=== PATIENT | male | born 1960 | race Caucasian/White ===

== ENCOUNTER → 2016-10-08 | Outpatient (CLI) | payer BC ==
[~2016-10-08] VITALS: Ht 177.8 cm; Wt 110.3 kg
[~2016-10-08] MED LIST: ADAL40KI IM; ERGO1CAP35 PO; EZET10TA63 PO; FLV1 PO; INSDGI SC; LSN5 PO; METH1INJ89 SC; MULT-845 PO; NVLGI SC; PRED20TA2 PO; SIMV40TA4 PO; TRAM-453 PO; ZOLP1TAB PO; [UNRECOGNIZED DRUG - CODE] PO
[2016-10-08 15:17] VITALS: BP 112/70; PULSE 89; Ht 177.8 cm; Wt 110.3 kg
== END | disposition home or self-care (01) ==
LOC: C.NEUR 14:55
PROVIDERS: ATTEND Internal Medicine Pulmonary Disease
DX: G47.30 Sleep apnea, unspecified (principal)

== ENCOUNTER → 2017-01-01 | Outpatient (CLI) | payer BC ==
[~2017-01-01] MED LIST changes: +ERGO500011 PO; +INSU1.2I SC; +METHOTREXATE IM; +NVLGI/PEN SC; +PRED-301 PO; +VEDO1INJ IV
--- NOTE | 2017-01-01 12:41 | DIAGNOSTIC IMAGING REPORT ---
LEFT KNEE 3 VIEWS HISTORY: LEFT KNEE PAIN COMPARISON: None. FINDINGS: There is no fracture or dislocation. Prepatellar soft tissue swelling. Probable small knee effusion. No radiopaque foreign bodies. IMPRESSION: No fractures. Prepatellar soft tissue swelling and a small knee effusion. Electronically signed by: Luis Alfredo Lopez M.D. 01/01/2017 12:39 PM Dictated Date/Time: 01/01/2017 12:38 PM
[2017-01-01 13:48] LABS: BLOOD UREA NITROGEN 10 mg/dl (7-18); BUN/CREATININE RATIO 14.3 (10-20); CALCIUM 9.5 mg/dl (8.5-10.1); CARBON DIOXIDE 25 mmol/L (21-32); CHLORIDE 101 mmol/L (98-107); CREATININE 0.68 mg/dl (0.60-1.40); GLUCOSE 341 mg/dl (70-99); POTASSIUM 4.5 mmol/L (3.5-5.1); SODIUM 134 mmol/L (136-145)
[2017-01-01 13:57] LABS: ESTIMATED AVERAGE GLUCOSE 212 mg/dl; HA1C FLAG Normal (Normal)
[2017-01-01 14:54] LABS: BETA-HYDROXYBUTYRATE 3.41 mg/dL (0.2-2.81)
== END | disposition home or self-care (01) ==
LOC: C.RADBC 11:49
PROVIDERS: ATTEND Nurse Practitioner Family
DX: M25.562 Pain in left knee (principal); E10.9 Type 1 diabetes mellitus without complications; R79.9 Abnormal finding of blood chemistry, unspecified

== ENCOUNTER → 2017-01-22 | Outpatient (CLI) | payer BC ==
[~2017-01-22] MED LIST changes: +CEPH500C2 PO; +HYDR-5688 PO
== END | disposition home or self-care (01) ==
LOC: C.LABSPEC 10:58
PROVIDERS: ATTEND Nurse Practitioner Adult Health
DX: L72.0 Epidermal cyst (principal)

== ENCOUNTER → 2017-02-14 | Outpatient (CLI) | payer BC | END | disposition home or self-care (01) | LOC: C.LABSPEC 16:46 | PROVIDERS: ATTEND Surgery | DX: L72.0 Epidermal cyst (principal) ==

== ENCOUNTER → 2017-05-24 | Outpatient (CLI) | payer BC ==
[~2017-05-24] MED LIST changes: -CEPH500C2 PO; -ERGO500011 PO; -HYDR-5688 PO; -INSU1.2I SC; -METHOTREXATE IM; -NVLGI/PEN SC; -PRED-301 PO; -VEDO1INJ IV
--- NOTE | 2017-05-24 09:26 | DIAGNOSTIC IMAGING REPORT ---
CHEST 2 VIEWS ROUTINE CLINICAL HISTORY: R05 Cough COMPARISON STUDY: 11/09/2015 FINDINGS: The heart remains mildly enlarged. There is soft tissue prominence in the region of the AP window. This remains unchanged. This may represent a prominent pulmonary artery. There is no failure. There is no focal pulmonary consolidation. There are no pleural effusions. IMPRESSION: 1. Prominent soft tissue prominence at the level of the main pulmonary segment/AP window. This remains unchanged on studies dating back to 2008 2. No acute findings. No evidence of acute parenchymal consolidation Electronically signed by: Dave Hoover M.D. 05/24/2017 9:25 AM Dictated Date/Time: 05/24/2017 9:21 AM
== END | disposition home or self-care (01) ==
LOC: C.RAD1850 08:38
PROVIDERS: ATTEND Nurse Practitioner Family
DX: R05 Cough (principal); M79.89 Other specified soft tissue disorders

== ENCOUNTER → 2017-07-11 | Outpatient (CLI) | payer BC ==
[~2017-07-11] MED LIST changes: -ADAL40KI IM; -ERGO1CAP35 PO; +ERGO500011 PO; +INSU1.2I SC; -METH1INJ89 SC; +METHOTREXATE IM; -NVLGI SC; +NVLGI/PEN SC; +PRED-301 PO; -PRED20TA2 PO; +VEDO1INJ IV
== END | disposition home or self-care (01) ==
LOC: C.CPL 17:11
PROVIDERS: ATTEND Surgery
DX: Z01.810 Encounter for preprocedural cardiovascular examination (principal); L72.0 Epidermal cyst

== ENCOUNTER → 2017-08-02 | Day surgery (SDC) | payer BC ==
[2017-07-09 15:07] VITALS: Ht 177.8 cm; Wt 109.5 kg
[~2017-08-02] VITALS: Ht 177.8 cm; Wt 109.5 kg
[~2017-08-02] MED LIST changes: +ATROPINE SULFATE 0.1 MG/ML 5ML SYR IV PRN; +CEFAZOLIN 2000MG IV PUSH 10 ML IV SCH; +CEPH500C2 PO; +EpHEDrine SULFATE INJ 50 MG/ML AMP IV PRN; +FENTANYL CITRATE INJ 50 MCG/1 ML 2 ML VIAL IV PRN; +FENTANYL CITRATE INJ 50 MCG/1 ML 2 ML VIAL ONE; +FLUMAZENIL 0.1 MG/1 ML 10 ML VIAL IV PRN; +HYDR-5688 PO; +HYDROCODONE/ACETAMOPHEN 5/325MG TAB PO PRN; +HYDROmorphone INJ 0.5 MG/0.5 ML SYR IV PRN; +LABETALOL HCL IV 5 MG/ML 20ML IV PRN; +LACTATED RINGER'S 1000ML 1,000 ML IV SCH; +LIDOCAINE HCL 1% 20 ML VIAL ONE; +LIDOCAINE HCL 2% 2 ML VIAL (20MG/ML) ONE; +MEPERIDINE HCL 25 MG/ML CARP IV PRN; +MIDAZOLAM HCL 1 MG/ML 2ML VIAL ONE; +NALOXONE HCL 0.4 MG/1 ML VIAL/CARP IV PRN; +ONDANSETRON INJ 2 MG/ML 2 ML VIAL IV PRN; +ONDANSETRON INJ 2 MG/ML 2 ML VIAL ONE; +PHENYLEPHRINE 100MCG/ML 5ML SYR IV PRN; +PROPOFOL IV EMULSION 10 MG/ML 20 ML VIAL IV ONE; +SODIUM CHLORIDE 0.9% 1000ML 1,000 ML IV SCH
--- NOTE | 2017-08-02 06:41 | History & Physical Bridge - SC ---
H&P Re-Evaluation Bridge Note: I have examined the patient, reviewed the History & Physical and in the interval since the performance of the History & Physical I have noted the following changes of clinical significance: No changes noted
--- NOTE | 2017-08-02 07:29 | [facility] Operative Report ---
Operative Report Operative Date Aug 02, 2017. Pre-Operative Diagnosis Epidermal Cyst, Right Upper Back Post-Operative Diagnosis Same Procedure(s) Performed Excision Of Epidermoid Cyst, Right Upper Back Surgeon Dr. Alejandro Instructional Manager Surgeon(s) Domi Geiger PA-C Estimated Blood Loss 5ML Findings scar tissue Specimens A. Upper Back Right Epidermail Cyst Anesthesia local/ sedation Complication(s) None Disposition Recovery Room / PACU I attest to the content of the Intraoperative Record and any orders documented therein. Any exceptions are noted below.
[2017-08-02 07:32] VITALS: TEMP 37.3
--- NOTE | 2017-08-02 07:33 | Discharge Instructions-SurgCtr ---
Discharge Instructions Date of Service Aug 02, 2017. Visit Reason for Visit: Epidermoid Cyst, Right Upper Back Discharge Discharge Diagnosis / Problem: epidermoid cyst Discharge Goals Goal(s): Decrease discomfort, Improve function, Improve disease control Medications Stopped Medications Name(s): Took half dose of long lasting insulin. Activity Recommendations Activity Limitations: as noted below Lifting Limitations: gradually increase as tolerated Exercise/Sports Limitations: until after follow-up appointment May Resume Sexual Activity: when tolerated Shower/Bathe: tomorrow Driving or Machine Use: resume 1 day after discharge Anesthesia . Post Anesthesia Instructions: If you have had General Anesthesia or IV Sedation: * Do not drive today. * Resume driving when surgeon permits. * Do not make important decisions or sign legal documents today. * Call surgeon for: 1. Temperature elevations greater than 101 degrees F. 2. Uncontrollable pain. 3. Excessive bleeding. 4. Persistent nausea and vomiting. 5. Medication intolerance (nausea, vomiting or rash). * For nausea and vomiting use only clear liquids such as: tea, soda, bouillon until nausea subsides, then gradually increase diet as tolerated. * If you have any concerns or questions, call your surgeon's office. If physician is unavailable and it is an emergency, call 911 or go to the nearest emergency room. . Instructions / Follow-Up Instructions / Follow-Up SPECIAL CARE INSTRUCTIONS: * Cover incisions and change daily for comfort/drainage. * May use ibuprofen for pain as tolerated. * Expect some swelling and bruising. Call your doctor if: * Temperature above 101 degrees * Pain not relieved by pain medicine ordered * There is increased drainage or redness from any incision * You have any unanswered questions or concerns [phone]. FOLLOW UP VISIT: If not already scheduled, please call the office for a follow-up visit. for next week- some suture removal OFFICE PHONE NUMBER: Dr. Alejandro Office Diet Recommendations Home Diet: resume previous diet Procedures Procedures Performed: Excision Of Epidermoid Cyst, Right Upper Back Pending Studies Studies pending at discharge: no Medical Emergencies . Who to Call and When: Medical Emergencies: If at any time you feel your situation is an emergency, please call 911 immediately. . Non-Emergent Contact Non-Emergency issues call your: Primary Care Provider, Surgeon . . "Provider Documentation" section prepared by Rivera Alejandro. .
--- NOTE | 2017-08-02 07:41 | Anesthesia Progress Nt - [facility] ---
Anesthesia Post Op Note Date & Time Aug 02, 2017 at 07:40 Vital Signs Pain Intensity: 0 Vital Signs Past 12 Hours Date Time Temp Pulse Resp B/P (MAP) Pulse Ox O2 Delivery O2 Flow Rate FiO2 08/02/17 06:34 36.7 75 20 117/90 (99) 95 Room Air Notes Mental Status: alert / awake / arousable, participated in evaluation Pt Amnestic to Procedure: Yes Nausea / Vomiting: adequately controlled Pain: adequately controlled Airway Patency, RR, SpO2: stable & adequate BP & HR: stable & adequate Hydration State: stable & adequate Anesthetic Complications: no major complications apparent
--- NOTE | 2017-08-02 07:42 | OPERATIVE REPORT ---
DATE OF OPERATION: 08/02/2017 NAME OF OPERATION: Excision of upper back epidermoid cyst. STAFF SURGEON: Rivera Alejandro MD. FLOW COORDINATOR: Sunil Toscano PA-C ANESTHESIA: Local sedation, 1% plain lidocaine. DESCRIPTION OF PROCEDURE: The patient was brought into the operating room and placed on the operating table in the prone position. His right upper back was prepped and draped in usual fashion. The patient had 2 small openings and a previous scar from drainage of the sebaceous cyst. Elliptical incision was made around this area approximately 3 cm in length, carried dissection down to the subcutaneous space excising the tissue and sending it for routine pathology. Deep tissue was then reapproximated using 2-0 chromic catgut suture. Then the skin reapproximated using 4-0 nylon suture and then a dressing applied. My recruitment and outreach assistant helped with prepping and draping and excision of the cyst and closure of the wound. I attest to the content of the Intraoperative Record and any orders documented therein. Any exception s are noted below.
[2017-08-02 07:52] VITALS: BP 128/84; PULSE 64; O2SAT 99
--- NOTE | 2017-08-06 09:48 | HISTORY & PHYSICAL EXAMINATION ---
DATE OF ADMISSION: 08/02/2017 HISTORY OF PRESENT ILLNESS: The patient is a 56-year-old male who I saw in the office with an infected upper back sebaceous cyst back in January and now is for excision. His history Includes hypertension and hypercholesterolemia. MEDICATIONS: He is on multiple medications. Please see chart. ALLERGIES: HE HAS ALLERGY TO mercaptopurine PHYSICAL EXAMINATION: HEENT: Grossly normal. NECK: Supple. LUNGS: Clear. HEART: Regular rate and rhythm. EXTREMITIES: His back shows a 3 cm sebaceous cyst in the right upper back. SKIN: Otherwise normal. NEUROLOGIC: He is alert. ASSESSMENT AND PLAN: The patient with a sebaceous cyst of the upper back. He is for excision at the surgery center under local sedation. RADHA
== END | disposition home or self-care (01) ==
LOC: X.SURG 06:16
PROVIDERS: ATTEND Surgery
DX: L72.0 Epidermal cyst (principal); I10 Essential (primary) hypertension; E78.00 Pure hypercholesterolemia, unspecified

== ENCOUNTER 2017-09-20 21:35 | Emergency (ER) | payer BC, OTHER ==
[~2017-09-20] VITALS: Ht 177.8 cm; Wt 111.0 kg
[~2017-09-20 21:35] MED LIST changes: -ATROPINE SULFATE 0.1 MG/ML 5ML SYR IV PRN; -CEFAZOLIN 2000MG IV PUSH 10 ML IV SCH; -EpHEDrine SULFATE INJ 50 MG/ML AMP IV PRN; -FENTANYL CITRATE INJ 50 MCG/1 ML 2 ML VIAL IV PRN; -FENTANYL CITRATE INJ 50 MCG/1 ML 2 ML VIAL ONE; -FLUMAZENIL 0.1 MG/1 ML 10 ML VIAL IV PRN; -HYDROCODONE/ACETAMOPHEN 5/325MG TAB PO PRN; -HYDROmorphone INJ 0.5 MG/0.5 ML SYR IV PRN; -LABETALOL HCL IV 5 MG/ML 20ML IV PRN; -LACTATED RINGER'S 1000ML 1,000 ML IV SCH; -LIDOCAINE HCL 1% 20 ML VIAL ONE; -LIDOCAINE HCL 2% 2 ML VIAL (20MG/ML) ONE; -MEPERIDINE HCL 25 MG/ML CARP IV PRN; -MIDAZOLAM HCL 1 MG/ML 2ML VIAL ONE; -NALOXONE HCL 0.4 MG/1 ML VIAL/CARP IV PRN; -ONDANSETRON INJ 2 MG/ML 2 ML VIAL IV PRN; -ONDANSETRON INJ 2 MG/ML 2 ML VIAL ONE; -PHENYLEPHRINE 100MCG/ML 5ML SYR IV PRN; -PROPOFOL IV EMULSION 10 MG/ML 20 ML VIAL IV ONE; -SODIUM CHLORIDE 0.9% 1000ML 1,000 ML IV SCH
[2017-09-20 21:54] VITALS: Ht 177.8 cm; Wt 111.0 kg
[2017-09-20] MEDS ORDERED: ACETAMINOPHEN 500 MG TAB PO STA (22:21)
[2017-09-20] MEDS ORDERED: SODIUM CHLORIDE 0.9% 1000ML 1,000 ML IV STA (22:21)
[2017-09-20] MEDS ORDERED: ACET-1256 PO (22:46)
[2017-09-20 23:05] LABS: BASO % 0.3 %; BASO ABS # 0.02 K/uL (0-0.2); EOS % 1.1 %; EOS ABS # 0.09 K/uL (0-0.5); HEMATOCRIT 44.1 % (42-52); HEMOGLOBIN 15.3 g/dL (14.0-18.0); IG# 0.02 K/uL (0.00-0.02); LYMPH % 8.1 %; LYMPH ABS # 0.64 K/uL (1.2-3.4); MEAN CELL VOLUME 85.3 fL (80-100); MEAN CORPUSCULAR HEMOGLOBIN 29.6 pg (25-34); MEAN CORPUSCULAR HGB CONC 34.7 g/dl (32-36); MONO % 7.7 %; MONO ABS # 0.61 K/uL (0.11-0.59); NEUT % 82.5 %; NEUT ABS # 6.53 K/uL (1.4-6.5); PLATELET COUNT 169 K/uL (130-400); RED CELL DISTRIBUTION WIDTH CV 14.7 % (11.5-14.5); RED CELL DISTRIBUTION WIDTH SD 45.3 fL (36.4-46.3); WHITE BLOOD COUNT 7.91 K/uL (4.8-10.8)
[2017-09-20 23:14] LABS: INR 1.1 (0.9-1.1); PTT PATIENT 25.5 SECONDS (21.0-31.0)
[2017-09-20 23:21] LABS: ALBUMIN 3.2 gm/dl (3.4-5.0); CALCIUM 8.5 mg/dl (8.5-10.1); CREATININE 0.6 mg/dl (0.60-1.40); POTASSIUM 3.6 mmol/L (3.5-5.1)
[2017-09-20 23:24] LABS: TOTAL PROTEIN 6.1 gm/dl (6.4-8.2)
[2017-09-20] MEDS ORDERED: IBUPROFEN 200 MG TAB PO STA (23:39)
[2017-09-20 23:52] VITALS: BP 114/67; TEMP 36.9
[2017-09-21 00:06] LABS: INFLUENZA B ANTIGEN Neg for Influ B (NEG)
[2017-09-21] MEDS ORDERED: OSELTAMIVIR PHOSPHATE 75 MG CAP PO STA (00:11)
[2017-09-21] MEDS ORDERED: OSEL75CA23 PO (00:17)
--- NOTE | 2017-09-21 00:27 | EMERGENCY ROOM VISIT NOTE ---
History Report prepared by Fernando: Araceli Rasheed Under the Supervision of: Dr. Willy Augustin M.D. First contact with patient: 22:16 Chief Complaint: FLU LIKE SX Stated Complaint: HEADACHE,FEVER History of Present Illness The patient is a 57 year old male who presents to the Emergency Room with complaints of persistent flu symptoms starting yesterday. The patient has had a cough and body aches. He currently has a headache. He also reports back pain. He tried taking tramadol at 1730. He last took Tylenol this morning. He has not taken any Motrin. He feels dehydrated. He is having abdominal pain. His has been giving him water and ice tea to stay hydrated. He had a fever of 101.7. He denies any vomiting or diarrhea. He has a history of Crohn's disease, diabetes, and polymyositis. He has not checked his sugar in 2-3 days. Source of History: patient Onset: yesterday Position: other (global) Quality: other (flu symptoms) Timing: other (persistent) Associated Symptoms: + fevers, + headache, + cough, + abdominal pain, + back pain, No vomiting, No diarrhea Note: Pt reports body aches. Review of Systems See HPI for pertinent positives & negatives. A total of 10 systems reviewed and were otherwise negative. Past Medical & Surgical Medical Problems: (1) Diabetes (2) SBO (small bowel obstruction) Family History Patient reports no known family medical history. Social History Smoking Status: Former Smoker Alcohol Use: occasionally Drug Use: none Marital Status: Occupation Status: employed Current/Historical Medications Scheduled Ergocalciferol (Vitamin D 45392 Unit), 1 TAB PO WK Ezetimibe (Zetia), 10 MG PO HS Folic Acid (Folic Acid), 1 MG PO QAM Insulin Aspart (Novolog Flexpen), 1 DOSE SC WM Insulin Glargine (Toujeo Solostar), 80 UNITS SC HS Lisinopril (Lisinopril), 5 MG PO QAM Multiple Vitamins W/ Minerals (Centrum Silver Adult 50+), 1 TAB PO QAM Oseltamivir Phosphate (Tamiflu), 75 MG PO BID Prednisone (Prednisone), 15 MG PO QAM Simvastatin (Zocor), 40 MG PO HS Vedolizumab (Entyvio), 1 DOSE IV Q8WK [Methotrexate], 1 ML IM WK Scheduled PRN Acetaminophen (Tylenol), 1,000 MG PO Q6 PRN for Pain Diphenoxylate/Atropine (Diphenoxylate/Atropine 2.5-0.025 mg), 1 TAB PO QID PRN for Diarrhea Tramadol Hcl (Ultram), 50-100 MG PO Q4-6H PRN for Pain Zolpidem Tartrate (Ambien Er), 12.5 MG PO HS PRN for Sleep Allergies Coded Allergies: Mercaptopurine (Verified Adverse Reaction, Severe, JAUNDICE, 08/02/17) Physical Exam Vital Signs Date Time Temp Pulse Resp B/P (MAP) Pulse Ox O2 Delivery O2 Flow Rate FiO2 09/20/17 23:52 36.9 99 18 114/67 94 09/20/17 21:54 39.3 95 20 124/78 98 Room Air Physical Exam Constitutional: Vital signs reviewed. Eyes: Pupils are equal round reactive to light. Conjunctiva are noninjected. ENT: Pharynx is clear without erythema or exudate. Mucous membranes are moist. Neck supple without meningeal signs. Respiratory: Clear to auscultation bilaterally. Breath sounds are equal bilaterally. Cardiovascular: Regular rate and rhythm. No rubs or gallops. GI: Soft, nondistended and nontender. Bowel sounds are present. Musculoskeletal: No peripheral edema. No lower extremity tenderness. Integumentary: No cyanosis. Neurological: The patient is awake and alert. No focal deficits. Psychiatric: Normal affect. Medical Decision & Procedures ER Provider Diagnostic Interpretation: Chest X-ray per my interpretation shows no acute cardiopulmonary process, no consolidation. Laboratory Results 09/20/17 22:37 Red Blood Count 5.17, Mean Corpuscular Volume 85.3, Mean Corpuscular Hemoglobin 29.6, Mean Corpuscular Hemoglobin Concent 34.7, Mean Platelet Volume 11.0, Neutrophils (%) (Auto) 82.5, Lymphocytes (%) (Auto) 8.1, Monocytes (%) (Auto) 7.7, Eosinophils (%) (Auto) 1.1, Basophils (%) (Auto) 0.3, Neutrophils # (Auto) 6.53, Lymphocytes # (Auto) 0.64, Monocytes # (Auto) 0.61, Eosinophils # (Auto) 0.09, Basophils # (Auto) 0.02 09/20/17 22:37 Test 09/20/17 22:37 09/20/17 22:55 09/20/17 23:15 White Blood Count 7.91 K/uL (4.8-10.8) Red Blood Count 5.17 M/uL (4.7-6.1) Hemoglobin 15.3 g/dL (14.0-18.0) Hematocrit 44.1 % (42-52) Mean Corpuscular Volume 85.3 fL (80-100) Mean Corpuscular Hemoglobin 29.6 pg (25-34) Mean Corpuscular Hemoglobin Concent 34.7 g/dl (32-36) Platelet Count 169 K/uL (130-400) Mean Platelet Volume 11.0 fL (7.4-10.4) Neutrophils (%) (Auto) 82.5 % Lymphocytes (%) (Auto) 8.1 % Monocytes (%) (Auto) 7.7 % Eosinophils (%) (Auto) 1.1 % Basophils (%) (Auto) 0.3 % Neutrophils # (Auto) 6.53 K/uL (1.4-6.5) Lymphocytes # (Auto) 0.64 K/uL (1.2-3.4) Monocytes # (Auto) 0.61 K/uL (0.11-0.59) Eosinophils # (Auto) 0.09 K/uL (0-0.5) Basophils # (Auto) 0.02 K/uL (0-0.2) RDW Standard Deviation 45.3 fL (36.4-46.3) RDW Coefficient of Variation 14.7 % (11.5-14.5) Immature Granulocyte % (Auto) 0.3 % Immature Granulocyte # (Auto) 0.02 K/uL (0.00-0.02) Prothrombin Time 11.3 SECONDS (9.0-12.0) Prothromb Time International Ratio 1.1 (0.9-1.1) Activated Partial Thromboplast Time 25.5 SECONDS (21.0-31.0) Partial Thromboplastin Ratio 1.0 Anion Gap 7.0 mmol/L (3-11) Est Creatinine Clear Calc Drug Dose 169.5 ml/min Estimated GFR () 129.4 Estimated GFR (Non- 111.6 BUN/Creatinine Ratio 15.0 (10-20) Calcium Level 8.5 mg/dl (8.5-10.1) Total Bilirubin 1.2 mg/dl (0.2-1) Direct Bilirubin 0.3 mg/dl (0-0.2) Aspartate Amino Transf (AST/SGOT) 58 U/L (15-37) Alanine Aminotransferase (ALT/SGPT) 82 U/L (12-78) Alkaline Phosphatase 134 U/L (45-117) Total Protein 6.1 gm/dl (6.4-8.2) Albumin 3.2 gm/dl (3.4-5.0) Bedside Lactic Acid Venous 1.69 mmol/L (0.90-1.70) Urine Color YELLOW Urine Appearance CLEAR (CLEAR) Urine pH 5.0 (4.5-7.5) Urine Specific [place] 1.022 (1.000-1.030) Urine Protein NEG (NEG) Urine Glucose (UA) 3+ (NEG) Urine Ketones 2+ (NEG) Urine Occult Blood NEG (NEG) Urine Nitrite NEG (NEG) Urine Bilirubin NEG (NEG) Urine Urobilinogen NEG (NEG) Urine Leukocyte Esterase NEG (NEG) Influenza Type A Antigen POS for Influ A (NEG) Influenza Type B Antigen Neg for Influ B (NEG) Laboratory results as reviewed by me. Medications Administered Medications (Trade) Dose Ordered Sig/Ajit Route Start Time Stop Time Status Last Admin Dose Admin Sodium Chloride 1,000 ml @ 999 mls/hr Q1H1M STAT IV 09/20/17 22:21 09/20/17 23:21 DC 09/20/17 23:13 999 MLS/HR Acetaminophen (Tylenol Tab) 1,000 mg NOW STAT PO 09/20/17 22:21 09/20/17 22:24 DC 09/20/17 23:13 1,000 MG Ibuprofen (Advil Tab) 400 mg NOW STAT PO 09/20/17 23:39 09/20/17 23:40 DC 09/20/17 23:51 400 MG Oseltamivir Phosphate (Tamiflu Cap) 75 mg NOW STAT PO 09/21/17 00:11 09/21/17 00:12 DC 09/21/17 00:16 75 MG ED Course 8: The patient was evaluated in room B9. A complete history and physical exam was performed. 2220: Acetaminophen 1000 mg PO, NSS 1000 ml @ 999 mls/hr IV. 2338: I reevaluated the patient. I discussed the test results with him. He states that his LFTs are normally a little elevated. 2339: Ibuprofen 400 mg PO. 0011: Tamiflu Cap 75 mg PO. 0013: Upon reevaluation, the patient was resting comfortably. I discussed tonight's findings with him. He verbalized agreement of the treatment plan. He was discharged home. Medical Decision This is a 57-year-old male who presents with influenza-like symptoms. Differential diagnosis includes influenza, pneumonia, bronchitis, dehydration, DKA. I did perform a limited focused review of portions of the patient's old chart on the electronic medical record. The patient has had no recent pertinent visits to this hospital. I did evaluate the patient as noted above. IV access was established. I did order and personally review the patient's chest x-ray as described above. I do not see any evidence of pneumonia. I did order and review the patient's blood work as noted in the electronic medical record. His white blood cell count is not elevated. Lactic acid is normal. His sugar is elevated. I did treat him with normal saline IV. His LFTs are elevated as well. This is normal for him per his report. I did order a rapid flu test which is positive for influenza A. I did discuss the test results with the patient. I did treat him with acetaminophen, ibuprofen and Tamiflu. He was discharged with a prescription for Tamiflu. He was advised to return for any worsening symptoms and to follow with his doctor. Medication Reconcilliation Current Medication List: was personally reviewed by me Blood Pressure Screening Patient's blood pressure: Normal blood pressure Blood pressure disposition: Did not require urgent referral Impression Primary Impression: Influenza A Additional Impressions: Abnormal LFTs Hyperglycemia Scribe Attestation The scribe's documentation has been prepared under my direct and personally reviewed by me in its entirety. I confirm that the note above accurately reflects all work, treatment, procedures, and medical decision making performed by me. Departure Information Dispostion Home / Self-Care Prescriptions Oseltamivir Phosphate (Tamiflu) 75 Mg Cap 75 MG PO BID, #9 CAP Prov: Willy Augustin M.D. 09/21/17 Referrals Mihceal Hathaway III, CRNP (PCP) Forms HOME CARE DOCUMENTATION FORM, IMPORTANT VISIT INFORMATION Patient Instructions ED Flu, [facility], Oseltamivir capsules Additional Instructions You have been examined and treated today on an emergency basis only. This is not a substitute for, or an effort to provide, complete comprehensive medical care. It is impossible to recognize and treat all injuries or illnesses in a single emergency department visit. It is therefore important that you follow up closely with your physician. Call as soon as possible for an appointment. Return for worsening symptoms or if you develop confusion, trouble breathing, chest pain, vomiting, or any other concerning symptoms. Problem Qualifiers
[2017-09-21 00:52] VITALS: PULSE 98; O2SAT 95
--- NOTE | 2017-09-21 08:13 | DIAGNOSTIC IMAGING REPORT ---
CHEST 2 VIEWS ROUTINE CLINICAL HISTORY: eval for pna COMPARISON STUDY: Chest radiograph May 24, 2017. FINDINGS: Left basilar opacity favors atelectasis. There is no pneumothorax or pleural effusion. Cardiomediastinal silhouette is stable. A prominent density within the expected region of the aortopulmonary window is unchanged dating back to October 21, 2008. The appearance of the chest is unchanged. IMPRESSION: No acute cardiopulmonary findings. Mild left basilar opacity which favors atelectasis. Electronically signed by: Dilip Barahona M.D. 09/21/2017 8:11 AM Dictated Date/Time: 09/21/2017 8:09 AM
== END 2017-09-21 00:50 | disposition home or self-care (01) ==
LOC: C.EDB 21:36
DX: J10.1 Influenza due to other identified influenza virus with other respiratory manifestations (principal); R94.5 Abnormal results of liver function studies; E11.65 Type 2 diabetes mellitus with hyperglycemia; K50.90 Crohn's disease, unspecified, without complications; M33.20 Polymyositis, organ involvement unspecified; Z87.891 Personal history of nicotine dependence; Z79.899 Other long term (current) drug therapy

== ENCOUNTER → 2017-10-10 | Outpatient (CLI) | payer OTHER ==
[~2017-10-10] VITALS: Ht 177.8 cm; Wt 107.7 kg
[~2017-10-10] MED LIST changes: +ACET-1256 PO; -CEPH500C2 PO; -HYDR-5688 PO; -INSDGI SC; +OSEL75CA23 PO
[2017-10-10 15:41] VITALS: BP 144/87; PULSE 108; Ht 177.8 cm; Wt 107.7 kg
== END | disposition home or self-care (01) ==
LOC: C.NEUR 15:25
PROVIDERS: ATTEND Physician Assistant
DX: G47.30 Sleep apnea, unspecified (principal)

== ENCOUNTER → 2017-12-23 | Day surgery (SDC) | payer BC, OTHER ==
[2017-12-13 10:34] VITALS: Ht 177.8 cm; Wt 109.1 kg
[~2017-12-23] VITALS: Ht 177.8 cm; Wt 109.1 kg
[~2017-12-23] MED LIST changes: -ACET-1256 PO; +IPRA0.06; -OSEL75CA23 PO; +PROPOFOL IV EMULSION 10 MG/ML 20 ML VIAL ONE; +SODIUM CHLORIDE 0.9% 500ML 500 ML IV ONE; +SUMA25TA12 PO
--- NOTE | 2017-12-23 09:03 | Endo History and Physical ---
History & Physical Date of Service: Dec 23, 2017. Chief Complaint: Crohn's,history of polyps Referring Physician: ADRIÁN Echols III History of Present Illness 57 yo CM who presents for colonoscopy secondary to Crohn's Disease. Past Medical History Diabetes, Arthritis, Fractures, Hypertension, Other Past Surgical History Hx Cardiac Surgery: No Hx Internal Defibrillator: No Hx Pacemaker: No Hx Abdominal Surgery: Yes (IRENE, SMALL BOWEL REPAIR) Hx of Implantable Prosthesis: No Hx Post-Op Nausea and Vomiting: No Hx Cancer Surgery: No Hx Thoracic Surgery: No Hx Orthopedic: No Hx Urinary Tract Surgery: No Family History Polyp Social History Smoking Status: Former Smoker Hx Substance Use: Yes (TAKES OPIOID DIPHENOXYLATE-ATROPINE PRN DIARRHEA) Hx Alcohol Use: No Allergies Coded Allergies: Mercaptopurine (Verified Adverse Reaction, Severe, JAUNDICE, 12/13/17) Current Medications Reported Home Medications Medications Dose Route/Sig Max Daily Dose Days Date Category Dose Instructions Imitrex (Sumatriptan Succinate) 25 Mg Tab 25 Mg PO PRN 12/13/17 Reported Ipratropium Nicholson (Ipratropium Nicholson (Nasal)) 0.06 % Spr 2 Sprays NA UD 12/13/17 Reported Novolog Flexpen (Insulin Aspart) 100 Units/Ml Inj 1 Dose SC WM 07/09/17 Reported PER SLIDING SCALE Prednisone 5 Mg Tab 15 Mg PO QAM 07/09/17 Reported [Methotrexate] 1 Ml IM WK 07/09/17 Reported Toujeo Solostar (Insulin Glargine) 300 Unit/Ml Inj 80 Units SC HS 07/09/17 Reported Vitamin D 88786 Unit (Ergocalciferol) 50,000 Unit Cap 1 Tab PO WK 07/09/17 Reported TAKES SUN Entyvio (Vedolizumab) 300 Mg Inj 1 Dose IV Q8WK 07/09/17 Reported Ambien Er (Zolpidem Tartrate) 12.5 Mg Tab 12.5 Mg PO HS PRN 11/07/15 Reported Lisinopril 5 Mg Tab 5 Mg PO QAM 11/07/15 Reported Ultram (Tramadol Hcl) 50 Mg Tab 50-100 Mg PO Q4-6H PRN 12/04/13 Reported NO MORE THAN 8 TABLETS PER DAY Folic Acid 1 Mg Tab 1 Mg PO QAM 12/04/13 Reported Diphenoxylate/Atropine 2.5-0.025 mg (Diphenoxylate HCl/Atropine) 1 Ea Tab 1 Tab PO QID PRN 12/04/13 Reported Centrum Silver Adult 50+ (Multiple Vitamins W/ Minerals) 1 Tab Tab 1 Tab PO QAM 12/04/13 Reported Zocor (Simvastatin) 40 Mg Tab 40 Mg PO HS 12/04/13 Reported Zetia (Ezetimibe) 10 Mg Tab 10 Mg PO HS 12/01/08 Reported Vital Signs Weight (Kilograms): 109.09 Height (Feet): 5 Height (Inches): 10 Date Time Temp Pulse Resp B/P (MAP) Pulse Ox O2 Delivery O2 Flow Rate FiO2 12/23/17 08:17 36.7 75 20 162/83 (109) 98 Room Air Physical Exam General Appearance: WD/WN, no apparent distress Respiratory/Chest: Auscultation: breath sounds normal Cardiovascular: Heart Auscultation: RRR Abdomen: Bowel Sounds: normal Inspection & Palpation: soft, non-distended, no tenderness, guarding & rebound Assessment and Plan Assessment: 57 yo CM who presents for colonoscopy secondary to Crohn's Disease. Plan: Proceed with colonoscopy.
--- NOTE | 2017-12-23 09:25 | Discharge Instructions ---
Endoscopy Patient Instructions Date / Procedure(s) Performed Dec 23, 2017. Colonoscopy Allergy Information Coded Allergies: Mercaptopurine (Verified Adverse Reaction, Severe, JAUNDICE, 12/13/17) Discharge Date / Findings Dec 23, 2017. Diverticulosis Internal hemorrhoids Random colon biopsies Medication Instructions OK to resume all medications today as prescribed Reported Home Medications Medications Dose Route/Sig Max Daily Dose Days Date Category Dose Instructions Imitrex (Sumatriptan Succinate) 25 Mg Tab 25 Mg PO PRN 12/13/17 Reported Ipratropium Marble (Ipratropium Marble (Nasal)) 0.06 % Spr 2 Sprays NA UD 12/13/17 Reported Novolog Flexpen (Insulin Aspart) 100 Units/Ml Inj 1 Dose SC WM 07/09/17 Reported PER SLIDING SCALE Prednisone 5 Mg Tab 15 Mg PO QAM 07/09/17 Reported [Methotrexate] 1 Ml IM WK 07/09/17 Reported Toujeo Solostar (Insulin Glargine) 300 Unit/Ml Inj 80 Units SC HS 07/09/17 Reported Vitamin D 58611 Unit (Ergocalciferol) 50,000 Unit Cap 1 Tab PO WK 07/09/17 Reported TAKES SUN Entyvio (Vedolizumab) 300 Mg Inj 1 Dose IV Q8WK 07/09/17 Reported Ambien Er (Zolpidem Tartrate) 12.5 Mg Tab 12.5 Mg PO HS PRN 11/07/15 Reported Lisinopril 5 Mg Tab 5 Mg PO QAM 11/07/15 Reported Ultram (Tramadol Hcl) 50 Mg Tab 50-100 Mg PO Q4-6H PRN 12/04/13 Reported NO MORE THAN 8 TABLETS PER DAY Folic Acid 1 Mg Tab 1 Mg PO QAM 12/04/13 Reported Diphenoxylate/Atropine 2.5-0.025 mg (Diphenoxylate HCl/Atropine) 1 Ea Tab 1 Tab PO QID PRN 12/04/13 Reported Centrum Silver Adult 50+ (Multiple Vitamins W/ Minerals) 1 Tab Tab 1 Tab PO QAM 12/04/13 Reported Zocor (Simvastatin) 40 Mg Tab 40 Mg PO HS 12/04/13 Reported Zetia (Ezetimibe) 10 Mg Tab 10 Mg PO HS 12/01/08 Reported Provider Instructions Activity Restrictions - No exercising or heavy lifting for 24 hours. - Do not drink alcohol the day of the procedure. - Do not drive a car or operate machinery until the day after the procedure. - Do not make any important decisions or sign important papers in 24 hours after the procedure. Following Day: - Return to full activity which may include returning to work/school. Diet Start your diet with liquids and light foods (jello, soup, juice, toast). Then eat your usual diet if not nauseated. Treatment For Common After Affects For mild abdominal pain, bloating, or excessive gas: - Rest - Eat lightly - Lie on right side Follow-Up Information Follow-up with ADRIÁN Echols III as scheduled Anesthesia Information What You Should Know You have had a procedure that required some medicine to reduce anxiety and discomfort. This treatment is called moderate sedation. After receiving the treatment, you may be sleepy, but you will be able to breathe on your own. The effects of the treatment may last for several hours. Follow these instructions along with Activity/Diet recommendations noted above: * Do NOT do anything where dizziness or clumsiness would be dangerous. * Rest quietly at home today, then you can be up and about tomorrow. * Have a responsible person stay with you the rest of today. * You may have had an I.V. today. If so, you may take the dressing off later today. Recommendations Call your doctor if: * Trouble breathing * Continuous vomiting for more than 24 hours * Temperature above 101 degrees * Severe abdominal pain or bloating * Pain not relieved by pain medicine ordered * There is increased drainage or redness from any incision * A large amount of rectal bleeding greater than 2-3 tablespoons. (If you had a polyp/s removed or have hemorrhoids, a small amount of blood - from the rectum is to be expected.) * You have any unanswered questions or concerns. IN THE EVENT OF A SERIOUS EMERGENCY, GO TO THE NEAREST EMERGENCY ROOM Your discharge instructions were prepared by provider Mitul Holm. Patient Instructions Signature Page Edmundo Rodrigues Patient (or Guardian) Signature/Date: I have read and understand the instructions given to me by my caregivers. Caregiver/RN/Doctor Signature/Date: The above-named patient and/or guardian has received patient instructions on this date. + Original Patient Signature Page (only) stays with chart. Please make copy for patient.
--- NOTE | 2017-12-23 09:33 | GI REPORT ---
Patient Name: Edmundo Rodrigues Procedure Date: 12/23/2017 8:11 AM Date of : 1960 Admit Type: Outpatient Age: 57 Gender: Male Attending MD: Mitul Holm DO Procedure: Colonoscopy Providers: Mitul Holm DO Referring MD: Skylar Rodrigues Indications: Disease activity assessment of Crohn's disease of the small bowel Medicines: Monitored Anesthesia Care Complications: No immediate complications. Estimated Blood Loss: Estimated blood loss: none. Procedure: Pre-Anesthesia Assessment: - Prior to the procedure, a History and Physical was performed, and patient medications and allergies were reviewed. The patient's tolerance of previous anesthesia was also reviewed. The risks and benefits of the procedure and the sedation options and risks were discussed with the patient. All questions were answered, and informed consent was obtained. Prior Anticoagulants: The patient has taken no previous anticoagulant or antiplatelet agents. ASA Grade Assessment: III - A patient with severe systemic disease. After reviewing the risks and benefits, the patient was deemed in satisfactory condition to undergo the procedure. After I obtained informed consent, the scope was passed under direct vision. Throughout the procedure, the patient's blood pressure, pulse, and oxygen saturations were monitored continuously. The Scope was introduced through the anus and advanced to the terminal ileum. The colonoscopy was performed without difficulty. The patient tolerated the procedure well. The quality of the bowel preparation was good. The terminal ileum, ileocecal valve, appendiceal orifice, and rectum were photographed. Findings: The perianal and digital rectal examinations were normal. Multiple small-mouthed diverticula were found in the sigmoid colon. Non-bleeding internal hemorrhoids were found during retroflexion. The hemorrhoids were small. Several random biopsies were obtained with cold forceps for histology in the entire colon. Impression: - Diverticulosis in the sigmoid colon. - Non-bleeding internal hemorrhoids. - Several random biopsies were obtained in the entire colon. Recommendation: - Resume previous diet. - Continue present medications. - Repeat colonoscopy for surveillance based on pathology results. - Return to my office as previously scheduled. Mitul Holm DO 12/23/2017 9:32:57 AM This report has been signed electronically. Note Initiated On: 12/23/2017 8:11 AM Number of Addenda: 0 I attest to the content of the Intraoperative Record and orders documented therein, exceptions below {[id number]}
--- NOTE | 2017-12-23 09:37 | Anesthesiology Progress Note ---
Anesthesia Post Op Note Date & Time Dec 23, 2017 at 09:37 Vital Signs Pain Intensity: 0 Vital Signs Past 12 Hours Date Time Temp Pulse Resp B/P (MAP) Pulse Ox O2 Delivery O2 Flow Rate FiO2 12/23/17 09:29 69 16 101/60 (74) 98 Room Air 12/23/17 08:17 36.7 75 20 162/83 (109) 98 Room Air Notes Mental Status: alert / awake / arousable, participated in evaluation Pt Amnestic to Procedure: Yes Nausea / Vomiting: adequately controlled Pain: adequately controlled Airway Patency, RR, SpO2: stable & adequate BP & HR: stable & adequate Hydration State: stable & adequate Anesthetic Complications: no major complications apparent
[2017-12-23 09:59] VITALS: BP 139/78; PULSE 63; O2SAT 100
== END | disposition home or self-care (01) ==
LOC: C.GI 07:39
PROVIDERS: ATTEND Internal Medicine
DX: K50.90 Crohn's disease, unspecified, without complications (principal); I10 Essential (primary) hypertension; E10.8 Type 1 diabetes mellitus with unspecified complications; G47.33 Obstructive sleep apnea (adult) (pediatric); K57.30 Diverticulosis of large intestine without perforation or abscess without bleeding; K64.8 Other hemorrhoids; Z99.89 Dependence on other enabling machines and devices; Z86.010 Personal history of colon polyps; Z87.891 Personal history of nicotine dependence

== ENCOUNTER 2022-04-28 21:14 | Inpatient (IN) ==
[2022-04-28] MEDS ORDERED: SODIUM CHLORIDE 0.9% 1000ML 500 ML IV ONE (21:54)
[2022-04-28] MEDS ORDERED: SODIUM CHLORIDE 0.9% 1000ML 1,000 ML IV ONE (21:54)
[2022-04-28] MEDS ORDERED: HYDROmorphone INJ 0.5 MG/0.5 ML SYR IV STA (21:54)
[2022-04-28] MEDS ORDERED: ONDANSETRON INJ 2 MG/ML 2 ML VIAL IV STA (21:54)
[2022-04-28 22:26] LABS: Basophils # (auto) 0.03 K/uL (0-0.2); Basophils % (auto) 0.2 %; Eosinophils # (auto) 0.03 K/uL (0-0.50); Eosinophils % (auto) 0.2 %; Hematocrit (blood only) 48.1 % (40.1-51.0); Hemoglobin 16.3 g/dl (14.0-18.0); Immature Granulocytes # (auto) 0.06 K/uL (0.00-0.02); Immature Granulocytes % (auto) 0.4 %; Lymphocytes # (auto) 1.21 K/uL (1.2-3.4); Lymphocytes % (auto) 8.3 %; Mean Corpuscular Hemoglobin 29.5 pg (25.0-34.0); Mean Corpuscular Hgb Conc 33.9 g/dL (32.0-36.0); Mean Corpuscular Volume 87.1 fL (80.0-100.0); Mean Platelet Volume 10.6 fL (9.4-12.4); Monocytes # (auto) 1.61 K/uL (0.24-0.82); Monocytes % (auto) 11.1 %; Neutrophils # (auto) 11.56 K/uL (1.4-6.5); Neutrophils % (auto) 79.8 %; Platelet Count 236 K/uL (130-400); RDW Coefficient of Variation 13.5 % (11.5-14.5); RDW Standard Deviation 43.1 fL (36.4-46.3); Red Blood Count 5.52 M/uL (4.63-6.08)
[2022-04-28 22:46] LABS: Alanine Aminotransferase 50 U/L (7-52); Albumin Level 3.8 gm/dl (3.4-5.0); Alkaline Phosphatase 75 U/L (34-104); Anion Gap 6 (3-11); Aspartate Aminotransferase 30 U/L (13-39); BUN Creatinine Ratio 39.2 (10-20); Bilirubin,Total 0.7 mg/dl (0.2-1.0); Blood Urea Nitrogen 20 mg/dl (6-23); Calcium 9.1 mg/dl (8.5-10.1); Carbon Dioxide 29 mmol/L (21-32); Chloride 103 mmol/L (98-107); Est GFR (African American) 134.5 ml/min; Globulin 1.9 gm/dl (2.5-4.0); Glucose 252 mg/dl (70-99(Fasting)); Sodium 138 mmol/L (136-145); Total Protein 5.7 gm/dl (6.0-8.3)
--- NOTE | 2022-04-28 22:56 | History & Physical Report ---
Date of Service April 28, 2022 Assessment & Plan (1) Burst fracture of lumbar vertebra: Plan: Edmundo Rodrigues is a 61-year-old male with past medical history of polymyositis- dermatomyositis, chronic muscle weakness, type 1 diabetes on insulin, hypertension, hyperlipidemia who presented via EMS after a fall in the shower. L1 burst fracture CT lumbar spine showing L1 burst fracture with minimal loss of height, no retropulsion Of note, patient has history of osteopenia most recent bone densitometry in November 2021 showing Z score of -0.5, considered within normal limits relative to his age. Report stating that "even so, they may be considered osteopenic or osteoporotic, which is normal for this age." Patient on chronic steroids for polymyositisdermatomyositis this would make him high risk for fractures Due to above considerations, will start intranasal calcitonin to treat as osteoporotic fracture Additionally, will order graduated pain regimen with hydromorphone Consider ortho spine consult of note, ortho spine unavailable during weekend -Consider outpatient referral, as current fracture does not seem to be unstable Admit for observation to [facility] Fall History of chronic muscle weakness in the setting of rheumatologic disease Fall seem to be mechanical in nature Head imaging negative for acute findings Fall precautions PT/OT ordered to evaluate for home needs Polymyositisdermatomyositis continue home prednisone Chronic pain Continue home duloxetine, gabapentin Graduated regimen for acute pain as above DM1 Hold home insulin regimen while admitted Glycemic consult for management Carb count diet Hyperlipidemia Continue home ezetimibe Patient unable to tolerate statins in the past due to myalgias Hypertension Continue home lisinopril Insomnia Continue trazodone at bedtime, zolpidem at bedtime as needed DVT prophylaxis: Lovenox SQ every 12 hours, for BMI over 35 Diet: Heart healthy, DM 1 Dispo: Observation to [facility], PT/OT to evaluate for home needs CODE STATUS: Full (2) Hypnotic-dependent sleep disorder: (3) Osteopenia: (4) Polymyositis-dermatomyositis: (5) Type 1 diabetes mellitus on insulin therapy: (6) Hypertension: (7) Hypercholesterolemia: (8) Vitamin D deficiency: (9) Sleep apnea: (10) Regional enteritis (Crohn's disease): (11) Migraines: (12) assisted current use of systemic steroids: History of Present Illness Primary Care Provider: Micheal Hathaway, III, ADRIÁN Edmundo Rodrigues is a 61-year-old male with past medical history of polymyositis-dermatomyositis, chronic muscle weakness, type 1 diabetes on insulin, hypertension, hyperlipidemia who presented via EMS after a fall in the shower. Patient states he slipped on soapy surface and fell back to a seated position, hitting his head but no loss of consciousness. He developed significant lower back pain at that time, for which reason his did not help him up and EMS was called instead. He was evaluated earlier in the day in our ED CT lumbar spine at that time showed acute L1 burst fracture demonstrating minimal loss of height, no associated retropulsion. Head CT did not show any acute processes. Pelvic CT did not show any fractures. The patient received pain control and decided to return home and attempt to treat the pain as outpatient. However, he returned later in the evening due to intractable back pain. He states he was unable to get up from bed due to significant pain. Due to inability to ambulate and intractable back pain, patient was recommended for admission. He had lab work significant for a white count of 14.5, normal electrolytes, normal LFTs. At the time of my evaluation, patient is laying flat in bed. Unable to move much, but appears in no acute distress. No chest pain, palpitations, shortness of breath, cough, headache, dizziness, new onset neurologic deficits, nausea, vomiting, abdominal pain. Allergies Allergy/AdvReac Type Severity Reaction Status Date / Time mercaptopurine AdvReac Severe JAUNDICE Verified 04/28/22 22:41 Home Medications Medication Instructions Recorded Confirmed Type multivitamin (Daily Multi-Vitamin 1 tab PO QAM 03/04/19 04/28/22 History tablet) blood sugar diagnostic (OneTouch #10 ea 04/01/19 04/10/22 History Ultra Blue Test Strip) vedolizumab 300 mg intravenous 300 mg IV Q8WK 04/01/19 04/28/22 History solution diphenoxylate-atropine 2.5 1 tab PO QID PRN diarrhea #360 tabs 07/20/19 04/28/22 Rx mg-0.025 mg tablet CPAP Supplies #1 ea 10/08/19 04/10/22 Rx duloxetine 60 mg capsule,delayed 60 mg PO QPM 03/01/20 04/28/22 History release flash glucose scanning reader #1 ea 06/21/20 04/10/22 Rx (FreeStyle [place] 14 Day [place]) prednisone 5 mg tablet 10 mg PO QAM #90 tabs 05/19/21 04/28/22 History trazodone 100 mg tablet 100 mg PO HS #90 tabs 05/22/21 04/28/22 Rx insulin aspart See Rx Instructions subcut 08/07/21 04/28/22 Rx (niacinamide)(U-100) 100 unit/mL(3 .COMPLEX 90 days #100 mL mL) subcutaneous pen (Fiasp FlexTouch U-100 Insulin) lisinopril 5 mg tablet 5 mg PO QAM #90 tabs 11/06/21 04/28/22 Rx flash glucose sensor (FreeStyle #2 ea 12/12/21 04/10/22 Rx [place] 14 Day Sensor kit) zolpidem 12.5 mg tablet,extended 12.5 mg PO HS PRN insomnia #30 tabs 02/13/22 04/28/22 Rx release,multiphase pen needle, diabetic 32 gauge x #500 ea 03/12/22 04/10/22 Rx 5/32" (BD Ultra-Fine [place]ha Pen Needle) gabapentin 300 mg capsule 300 mg PO BID #180 caps 03/15/22 04/28/22 Rx ezetimibe 10 mg tablet 10 mg PO DAILY 04/28/22 04/28/22 History hydrocodone 5 mg-acetaminophen 325 1 tab PO Q6H PRN Pain 04/28/22 04/28/22 History mg tablet insulin glargine 100 unit/mL (3 65 unit subcut QPM 04/28/22 04/28/22 History mL) subcutaneous pen (Basaglar KwikPen U-100 Insulin) Past Med/Surg History Medical History Chronic back pain Chronic steroid use Crohn's disease Diverticulosis Dysfunction of right eustachian tube Elevated hemoglobin A1c History of intestinal obstruction History of migraine HLD (hyperlipidemia) HTN (hypertension) Inclusion body myositis Follows with [facility]ology Mixed conductive and sensorineural hearing loss of right ear with restricted hearing of left ear Osteoarthritis Polymyositis-dermatomyositis Sleep apnea CPAP Statin myopathy Type 1 diabetes mellitus on insulin therapy Wheelchair bound Surgical History History of biopsy muscle History of cholecystectomy History of colonoscopy History of esophagogastroduodenoscopy (EGD) History of incision and drainage (2017) I&D of sebaceous cyst right upper back History of intestinal surgery History of surgery (2017) epidermal cyst excision History of wisdom tooth extraction Family History Unknown Breast cancer Father Diabetes Father Hearing loss Stroke Mother Hypertension Cancer Heart disease Other Allergies No family history of adverse response to anesthesia No family history of bleeding disorder Denies family history of Ovarian cancer Prostate cancer Myocardial infarction Colorectal cancer Social History Smoking Status: Former smoker Tobacco Type: Cigarettes Age Started Using Tobacco: 14; Age Quit Using Tobacco: 17; Smoking End Date: 40 years ago; Second Hand Exposure: No; Do You Dip or Chew Tobacco: No; Hx Alcohol Use: No Hx Substance Use: No Preferred Language: Chinese Communication Ability: Effective Visual Impairment: No Limitations Hearing Ability: Normal Mystery Shopper Required: No Beliefs That Will Affect Care: None marital status: Current Living Situation: Spouse current occupational status: employed current occupation: security How many Children do You have: 1 Other Information That Helps Us Care for You: No Feels Safe at Home: Yes Safety Concerns: Feels Safe At This Time Childhood Exposure to Second-Hand Smoke: Yes Diet Comment: regular caffeine: Yes during the past year weight has: remained stable Dental Care, Regularly: Yes Physical Activity Frequency: Does not Exercise Seatbelt Use: always Sunscreen Use: Yes Assistive Devices: Scooter/Electric Scooter, Stair Lift and Walker Review of Systems Review of Systems: Per HPI Physical Exam Physical Exam: GENERAL: A&Ox3. NAD. Somewhat uncomfortable appearing. HEENT: PERRL, EOMI. Moist mucous membranes. NECK: No JVD. No lymphadenopathy. CHEST/LUNGS: CTAB A/P. No crackles, wheezes, rales, rhonchi. HEART: RRR. No m/g/r. No carotid bruits. ABDOMEN: NT/ND, soft. BS+ x4 EXTREMITIES: No cyanosis, no clubbing, no edema SKIN: Warm and dry. No rashes or lesions. PSYCHIATRIC: Euthymic affect, no SI, no pressured speech, no hallucinations NEUROLOGIC: No FND. Results & Data Results & Data ([facility]) Vital Signs (Past 12 Hours) Vital Signs Temp Pulse Resp BP Pulse Ox O2 Del Method 04/28/22 21:20 36.5 C 102 H 20 174/88 H 96 Room Air Code Status & VTE Plan VTE Prophylaxis Plan VTE Prophylaxis will be ordered: Yes Supervising Physician Co-Signing Physician Notes Attending addendum: I have physically seen this patient, have supervised the medical residents activities, and agree with the H&P unless as otherwise noted. Assessment and Plan: L1 burst fracture- Initially discharged home in the afternoon, but returned back to the ED due to severe pain unrelieved by [place] Chronic steroid use for polymyositis/dermatomyositis as a risk factor Intranasal calcitonin to be started as noted Bone density scan as an outpatient Acetaminophen 650 mg p.o. every 6 hours. Mild pain or fever [place] 5/325, 1 p.o. every 4 hours as needed moderate pain Dilaudid 0.5 mg IV every 3 hours as needed severe pain PT/OT Consult orthopedic spine surgery when available Polymyositis/dermatomyositis- On prednisone, hold off on stress testing at this time Chronic pain syndrome- Continue duloxetine, gabapentin Diabetes mellitus- Glycemic consult placed by resident Remaining orders and notations as noted Resident Activity Tracking Resident Involvement: Resident Care Provided Care Provided: Adult Hospital Medicine
[2022-04-28] MEDS ORDERED: ACETAMINOPHEN 500 MG TAB PO PRN (23:57)
[2022-04-28] MEDS ORDERED: HYDROmorphone INJ 0.5 MG/0.5 ML SYR IV PRN (23:57)
[2022-04-28] MEDS ORDERED: DC ALL PREVIOUSLY ORDERED DIABETES MEDS ONE (23:57)
[2022-04-28] MEDS ORDERED: DIPHENOXYLATE/ATROPINE 2.5/0.025MG TAB PO PRN (23:57)
[2022-04-28] MEDS ORDERED: POLYETHYLENE (MIRALAX) 17 GM PACK PO PRN (23:57)
[2022-04-28] MEDS ORDERED: GLUCAGON FOR INJ 1 MG VIAL SQ PRN (23:57)
[2022-04-28] MEDS ORDERED: DEXTROSE 50% 50 ML SYRINGE IV PRN (23:57)
[2022-04-28] MEDS ORDERED: PHARMACY GLYCEMIC MGMT CONSULT PRN (23:57)
[2022-04-28] MEDS ORDERED: GLUCOSE 10 TAB/TUBE PO PRN (23:57)
[2022-04-28] MEDS ORDERED: ONDANSETRON INJ 2 MG/ML 2 ML VIAL IV PRN (23:57)
[2022-04-28] MEDS ORDERED: GLUCOSE 40% GEL 15 GM TUBE PO PRN (23:57)
--- NOTE | 2022-04-29 00:11 | Emergency Department Note ---
History of Present Illness General Chief complaint: Back Injury/Pain Stated complaint: FRACTURED VERTEBRAE, TROUBLE MOVING Time Seen by Provider: 04/28/22 21:31 History of Present Illness Maximum Pain Intensity: 10 61-year-old male who returns to the emergency department with family for e valuation of uncontrollable back pain. The patient was seen in the emergency department earlier this afternoon after sustaining a fall in his shower. The patient has CT imaging confirming an L1 burst fracture. He was offered admission, but deferred, and wanted to go home and try taking pain medication. The patient did get his prescription filled for [place], but discovered that he was not having adequate pain control. The patient reports laying down on the bed, and could not get up. He was able to have other family members help him get up to get him to the hospital for further evaluation. The patient is requesting admission with a pain rated a 7 out of 10. Home Medications Medication Instructions Recorded Confirmed Type multivitamin (Daily Multi-Vitamin 1 tab PO QAM 03/04/19 04/28/22 History tablet) blood sugar diagnostic (OneTouch #10 ea 04/01/19 04/10/22 History Ultra Blue Test Strip) vedolizumab 300 mg intravenous 300 mg IV Q8WK 04/01/19 04/28/22 History solution diphenoxylate-atropine 2.5 1 tab PO QID PRN diarrhea #360 tabs 07/20/19 04/28/22 Rx mg-0.025 mg tablet CPAP Supplies #1 ea 10/08/19 04/10/22 Rx duloxetine 60 mg capsule,delayed 60 mg PO QPM 03/01/20 04/28/22 History release flash glucose scanning reader #1 ea 06/21/20 04/10/22 Rx (FreeStyle [place] 14 Day [place]) prednisone 5 mg tablet 10 mg PO QAM #90 tabs 05/19/21 04/28/22 History trazodone 100 mg tablet 100 mg PO HS #90 tabs 05/22/21 04/28/22 Rx insulin aspart See Rx Instructions subcut 08/07/21 04/28/22 Rx (niacinamide)(U-100) 100 unit/mL(3 .COMPLEX 90 days #100 mL mL) subcutaneous pen (Fiasp FlexTouch U-100 Insulin) lisinopril 5 mg tablet 5 mg PO QAM #90 tabs 11/06/21 04/28/22 Rx flash glucose sensor (FreeStyle #2 ea 12/12/21 04/10/22 Rx [place] 14 Day Sensor kit) zolpidem 12.5 mg tablet,extended 12.5 mg PO HS PRN insomnia #30 tabs 02/13/22 04/28/22 Rx release,multiphase pen needle, diabetic 32 gauge x #500 ea 03/12/22 04/10/22 Rx 5/32" (BD Ultra-Fine Marsha Pen Needle) gabapentin 300 mg capsule 300 mg PO BID #180 caps 03/15/22 04/28/22 Rx ezetimibe 10 mg tablet 10 mg PO DAILY 04/28/22 04/28/22 History hydrocodone 5 mg-acetaminophen 325 1 tab PO Q6H PRN Pain 04/28/22 04/28/22 History mg tablet insulin glargine 100 unit/mL (3 65 unit subcut QPM 04/28/22 04/28/22 History mL) subcutaneous pen (Basaglar KwikPen U-100 Insulin) Allergies Allergy/AdvReac Type Severity Reaction Status Date / Time mercaptopurine AdvReac Severe JAUNDICE Verified 04/28/22 22:41 Past Med/Surg History Medical History Chronic back pain Chronic steroid use Crohn's disease Diverticulosis Dysfunction of right eustachian tube Elevated hemoglobin A1c History of intestinal obstruction History of migraine HLD (hyperlipidemia) HTN (hypertension) Inclusion body myositis Follows with [facility] Mixed conductive and sensorineural hearing loss of right ear with restricted hearing of left ear Osteoarthritis Polymyositis-dermatomyositis Sleep apnea CPAP Statin myopathy Type 1 diabetes mellitus on insulin therapy Wheelchair bound Surgical History History of biopsy muscle History of cholecystectomy History of colonoscopy History of esophagogastroduodenoscopy (EGD) History of incision and drainage (2016) I&D of sebaceous cyst right upper back History of intestinal surgery History of surgery (2017) epidermal cyst excision History of wisdom tooth extraction Family History Unknown Breast cancer Father Diabetes Father Hearing loss Stroke Mother Hypertension Cancer Heart disease Other Allergies No family history of adverse response to anesthesia No family history of bleeding disorder Denies family history of Ovarian cancer Prostate cancer Myocardial infarction Colorectal cancer Social History Smoking Status: Former smoker Tobacco Type: Cigarettes Age Started Using Tobacco: 14; Age Quit Using Tobacco: 17; Smoking End Date: 40 years ago; Second Hand Exposure: No; Do You Dip or Chew Tobacco: No; Hx Alcohol Use: No Hx Substance Use: No Preferred Language: Danish Communication Ability: Effective Visual Impairment: No Limitations Hearing Ability: Normal Fundraising Assistant Required: No Beliefs That Will Affect Care: None marital status: Current Living Situation: Spouse current occupational status: employed current occupation: security How many Children do You have: 1 Other Information That Helps Us Care for You: No Feels Safe at Home: Yes Safety Concerns: Feels Safe At This Time Childhood Exposure to Second-Hand Smoke: Yes Diet Comment: regular caffeine: Yes during the past year weight has: remained stable Dental Care, Regularly: Yes Physical Activity Frequency: Does not Exercise Seatbelt Use: always Sunscreen Use: Yes Assistive Devices: Scooter/Electric Scooter, Stair Lift and Walker Review of Systems 10 system review was performed and was negative except for pertinent positives and negatives as indicated in history of present illness Physical Exam Vital Signs Vital Signs - 24 hr 04/28/22 21:20 Temperature 36.5 C Temperature Source Temporal Artery Scan Pulse Rate 102 H Respiratory Rate 20 Respiratory Depth Normal Blood Pressure 174/88 H Blood Pressure Mean 116 Pulse Oximetry 96 Oxygen Delivery Method Room Air Sepsis New/Unexplained Change in Mental Status N/A Sepsis Action Taken by Nursing No Action Required CONSTITUTIONAL: Obese male in moderate distress from back pain. HEENT: Normocephalic, atraumatic. Pupils equal, round and reactive. No scleral icterus or conjunctival injection/pallor. NECK: Full active range of motion without discomfort. LYMPHATICS: No cervical chain adenopathy. RESPIRATORY: Clear to auscultation bilaterally with no wheezing, crackles, rhonchi or stridor. CARDIOVASCULAR: Regular rate and rhythm with no murmurs, rubs or gallops. GASTROINTESTINAL: Bowel sounds present in all quadrants. Abdomen is protuberant but soft and nontender to palpation. MUSCULOSKELETAL: Examination shows generalized tenderness to palpation through the central back region. No pain through the ribs. Negative logroll and straight leg raise. Ankle plantar/dorsiflexion strength is 5 out of 5 and symmetric bilaterally. INTEGUMENTARY: No rash or other significant dermatologic conditions noted. HEMATOLOGIC: No ecchymosis or petechiae. PSYCHIATRIC: Positive affect. NEUROLOGIC: No focal neurologic deficits noted. Lower extremities are fully sensory intact with deep tendon reflexes 2+ and symmetric bilaterally. Course Course In allBegin physical exam were performed. Nurses notes were reviewed. Vital signs were reviewed blood pressure and mild tachycardia. I also reviewed prior documentation from this afternoon, with CT imaging confirming an L1 burst fracture with minimal loss of height and no associated retropulsion. IV access was established, and labs were drawn. The patient was hydrated with normal saline, and administered IV Dilaudid and Zofran for his immediate pain. Labs reviewed to show a moderate leukocytosis with left shift and bandemia. CMP shows a random glucose of 252. Creatinine is normal. RNA COVID-19 test was negative. [facility] patient for intractable back pain. It is noted that Dr. Lester (spine surgeon) is not on-call this weekend. Pending how the patient responds to inpa tient treatment, he may require short-term rehab. Administered Medications Acetaminophen (Acetaminophen 500 Mg Tab) 1,000 mg PO Q8H PRN PRN Reason: Pain & Pre PT Stop: 05/28/22 23:56 Last Admin: 04/29/22 00:30 Dose: 1,000 mg Documented By: TRUE Insulin Aspart (Insulin Aspart Per Unit) 0 units SC ACHS WAQAR Stop: 05/29/22 00:29 Last Admin: 04/29/22 00:45 Dose: 3 units Documented By: LMP Co-signed By: JLT Discontinued Medications Hydromorphone HCl (Hydromorphone Inj 0.5 Mg/0.5 Ml Syr) 0.5 mg IV NOW STA Stop: 04/28/22 21:55 Last Admin: 04/28/22 22:23 Dose: 0.5 mg Documented By: QGV Sodium Chloride (Nss 1000ml) 1,000 mls @ 999 mls/hr IV .Q1H1M ONE Stop: 04/28/22 22:54 Last Infusion: 04/29/22 00:00 Dose: 0 mls/hr Documented By: Admin: 04/28/22 22:25 Dose: 999 mls/hr Documented By: QGV Sodium Chloride (Nss 1000ml) 500 mls @ 999 mls/hr IV .Q31M ONE Stop: 04/28/22 22:24 Last Admin: 04/28/22 23:00 Dose: Not Given Documented By: QGV Insulin Glargine (Lantus Per Unit Charge) 60 units SQ NOW ONE Stop: 04/29/22 00:31 Last Admin: 04/29/22 00:44 Dose: 60 units Documented By: LMP Co-signed By: DELON Ondansetron HCl (Ondansetron Inj 2 Mg/Ml 2 Ml Vial) 4 mg IV NOW STA Stop: 04/28/22 21:55 Last Admin: 04/28/22 22:23 Dose: 4 mg Documented By: QGV Medical Decision Making Medical Records Attestation: I reviewed the patient's medical records. Home Medications Current Medication List: was personally reviewed by me Laboratory Data Attestation: I reviewed the patient's lab results. Result diagrams: 04/28/22 22:13 04/28/22 22:13 Lab Results 04/28/22 04/28/22 04/28/22 Range/Units 22:13 22:13 22:22 WBC 14.50 H (4.8-10.8) K/ul RBC 5.52 (4.63-6.08) M/uL Hgb 16.3 (14.0-18.0) g/dl Hct 48.1 (40.1-51.0) % MCV 87.1 (80.0-100.0) fL MCH 29.5 (25.0-34.0) pg MCHC 33.9 (32.0-36.0) g/dL RDW Std Deviation 43.1 (36.4-46.3) fL RDW Coeff of Amy 13.5 (11.5-14.5) % Plt Count 236 (130-400) K/uL MPV 10.6 (9.4-12.4) fL Immature Gran % (Auto) 0.4 % Neut % (Auto) 79.8 % Lymph % (Auto) 8.3 % [place] % (Auto) 11.1 % Eos % (Auto) 0.2 % Baso % (Auto) 0.2 % Neut # (Auto) 11.56 H (1.4-6.5) K/uL Lymph # (Auto) 1.21 (1.2-3.4) K/uL [place] # (Auto) 1.61 H (0.24-0.82) K/uL Eos # (Auto) 0.03 (0-0.50) K/uL Baso # (Auto) 0.03 (0-0.2) K/uL Immature Gran # (Auto) 0.06 H (0.00-0.02) K/uL Sodium 138 (136-145) mmol/L Potassium 4.0 (3.5-5.1) mmol/L Chloride 103 (98-107) mmol/L Carbon Dioxide 29 (21-32) mmol/L Anion Gap 6 (3-11) BUN 20 (6-23) mg/dl Creatinine 0.51 L (0.6-1.4) mg/dl Est Cr Clr Drug Dosing Not Reportable Est GFR ( Amer) 134.5 ml/min Est GFR (Non-Af Amer) 116.0 ml/min BUN/Creatinine Ratio 39.2 H (10-20) Glucose 252 H (70-99(Fasting)) mg/dl Calcium 9.1 (8.5-10.1) mg/dl Total Bilirubin 0.7 (0.2-1.0) mg/dl AST 30 (13-39) U/L ALT 50 (7-52) U/L Alkaline Phosphatase 75 (34-104) U/L Total Protein 5.7 L (6.0-8.3) gm/dl Albumin 3.8 (3.4-5.0) gm/dl Globulin 1.9 L (2.5-4.0) gm/dl Albumin/Globulin Ratio 2.0 (0.9-2) SARS-CoV-2, RNA, NAAT NEGATIVE (NEGATIVE) Blood Pressure Blood Pressure Findings: Elevated blood pressure Blood Pressure Disposition: elevated BP felt to be situational MDM Narrative Impression & Plan Burst fracture of lumbar vertebra, Intractable back pain, Fall in home Discharge Plan Visit Data Chief Complaint: Back Injury/Pain Stated Complaint: FRACTURED VERTEBRAE, TROUBLE MOVING ED Provider: Teo Rankin ED Midlevel Provider: David Campoverde Discharge Problem: Burst fracture of lumbar vertebra, Intractable back pain, Fall in home Patient Disposition: Admitted As Inpatient Discharge Instructions Interventions: ED Discharge Assessment Last Done: 04/28/22 23:16
[2022-04-29] MEDS ORDERED: Patient's HEIGHT &/or WEIGHT Needed SCH (00:15)
[2022-04-29] MEDS ORDERED: LANTUS PER UNIT CHARGE SQ ONE (00:30)
[2022-04-29] MEDS: INSULIN ASPART PER UNIT SC SCH ×5 (00:45→21:37)
[2022-04-29] MEDS: ZOLPIDEM TARTRATE 10 MG TAB PO PRN ×2 (01:06→22:47)
[2022-04-29] MEDS: DULoxetine HCL 60 MG CAP PO SCH ×2 (01:07→21:30)
[2022-04-29] MEDS: GABAPENTIN 300 MG CAP PO SCH ×3 (01:07→21:30)
[2022-04-29] MEDS: traZODone HCL 100 MG TAB PO SCH ×2 (01:07→21:30)
[2022-04-29] MEDS: HYDROmorphone INJ 0.5 MG/0.5 ML SYR IV PRN ×5 (01:08→22:47)
[2022-04-29] MEDS: ENOXAPARIN INJ 40 MG/0.4 ML SYR SQ SCH ×2 (05:54→17:30)
[2022-04-29] MEDS: EZETIMIBE 10 MG TABLET PO SCH (07:53)
[2022-04-29] MEDS: MULTIVITAMIN TAB PO SCH (07:53)
[2022-04-29] MEDS: DICLOFENAC SOD 1% GEL 100 GM TUBE EXT SCH ×4 (07:54→21:30)
[2022-04-29] MEDS: lisinopril 5 MG TAB PO SCH (07:54)
[2022-04-29] MEDS: CALCITONIN SALMON NA 200 IU/AC 3.7 ML BTL SCH (07:55)
[2022-04-29] MEDS: LIDOCAINE 5% 1 PATCH TD SCH (07:55)
--- NOTE | 2022-04-29 08:05 | Pharmacy Report ---
Pharmacy Glycemic Short Note 2 - Date of Service April 29, 2022 - Glycemic Short BSG Results (Last 24 hours): 04/28/22 04/29/22 22:13 00:37 Glucose 252 H POC Glucose 169 H OUTPATIENT ANTIDIABETIC REGIMEN: * Basaglar 65 units SQ HS * Aspart TID meals, 38 units with breakfast, 34 units with lunch, 38 units with dinner ASSESSMENT: * 61 year old male, PMH polymyositis-dermatomyositis, chronic muscle weakness, T1DM, HTN, HL, admitted for L1 burst fracture from fall in the shower. * No plans for surgery at this time, treating with pain meds and prednisone burst. * Patient on prednisone 10 mg PO daily at home - increased to 40mg daily today, tighten CR. * Blood sugar 252mg/dl on admission, given 60 units Lantus last night. * Type 1 DM diet. PLAN FOR INPATIENT GLYCEMIC CONTROL: * Basal insulin * Lantus 60 units SQ HS * Bolus insulin * NovoLog per scale ACHS or Q6hrs while NPO * Goal Range: Low 110 mg/dL - High 140 mg/dL * Correction Factor: 10 mg/dL/unit * Nutritional / Prandial insulin per carb ratio of 1 unit per 3 grams CHO consumed
[2022-04-29] MEDS ORDERED: predniSONE 10 MG TABLET PO ONE (08:45)
[2022-04-29] MEDS ORDERED: predniSONE 10 MG TABLET PO SCH (09:00)
[2022-04-29 09:05] LABS: Appearance Urine Clear (Clear); Bilirubin Urine Negative (Negative); Blood Urine Negative (Negative); Color Urine Dark Yellow; Glucose Urine UA 2+ (Negative); Ketones Urine Trace (Negative); Leukocyte Esterase Urine Negative (Negative); Nitrite Urine Negative (Negative); Protein Urine Negative (Negative); Specific Gravity Urine 1.023 (1.000-1.030); Urobilinogen Urine Negative (Negative); pH Urine 5.5 (4.5-7.5)
[2022-04-29] MEDS: ACETAMINOPHEN 500 MG TAB PO SCH ×2 (12:40→21:30)
[2022-04-29] MEDS: oxyCODONE HCL IR 5 MG TAB (IMMEDIATE RELEASE) PO PRN ×2 (12:41→19:39)
[2022-04-29] MEDS ORDERED: SODIUM CHLORIDE 0.9% 1000ML 1,000 ML IV SCH (14:45)
[2022-04-29] MEDS: cefTRIAXone SODIUM 2,000 MG in DEXTROSE 5% 50 ML IV SCH (16:23)
[2022-04-29] MEDS: DOXYCYCLINE HYCLATE 100 MG CAP PO SCH ×2 (16:23→21:30)
[2022-04-29] MEDS: ADVANCED PROBIOTIC 1250 MG CAPSULE PO SCH (16:23)
--- NOTE | 2022-04-29 20:33 | Hospitalist Progress Note ---
Date of Service April 29, 2022 Assessment & Plan (1) Burst fracture of lumbar vertebra: Plan: L1 burst fracture, 2nd to fall/trauma in shower 04/28/22 - CT lumbar spine showing the L1 burst fracture with minimal loss of height and NO no retropulsion of fragments Pain control - * intranasal calcitonin * hydromorphone prn * tylenol 1gm TID * oxycodone 5mg q6h prn (use for pain scale 1-8/10) * stress dose steroids - give total 40mg of prednisone, then taper over 5 days back to his current dose of 17mg/day * ortho consult with Dr Lester when he is available * bed rest for now; PT, OT after Dr Lester sees * TLSO brace? Continue home duloxetine, gabapentin - consider adjustment in these meds for additional pain control (2) Cellulitis: Plan: RLE>LLE (shins) mild rocephin 2gm IV daily + doxy 100mg PO BID this may explain his mild leukocytosis serial exams (3) Urinary retention: Plan: s/p bhandari this am bladder scan was 500cc+ BPH? due to pain issues/use of narcotics? UTI? combination of factors? 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 for polymyositis? both? check a CPK with next blood draw (8) Type 1 diabetes mellitus on insulin therapy: Plan: pharmacy consult appreciated no DKA defer basal-bolus management to pharmacy Hba1c 6.1% in March (9) Hypertension: Plan: cont lisinopril 5mg daily (10) Hypercholesterolemia: Plan: cont zetia (11) Vitamin D deficiency: (12) Sleep apnea: (13) Regional enteritis (Crohn's disease): Plan: controlled at this time (14) Migraines: Plan: no current headache (15) DVT prophylaxis: Plan: lovenox daily Plan updated by phone this evening Admission and Anticipated Discharge Date Admission Date: April 28, 2022 Subjective patient states that if he is completely still the pain is tolerable but any rolling in bed or movement makes the pain worse has chronic paresthesias of legs - no change in such has chronic weakness of legs from polymyositis - also no change he states "My was worried about something on my right leg" eating ok today, but wasn't eating/drinking well yesterday Review of Systems Review of Systems: gen - no fevers cv - no orthopnea pulm - no cough or dyspnea GI - no nausea Physical Exam Physical Exam: gen - comfortable appearing, NAD, pleasant mouth - MM dry neck - no JVD heart - RRR, s1 s2 lungs - CTA b/l abd - soft NT ND BS+ ext - trace edema b/l, pulses 2+ b/l skin - mild benoit cellulitis b/l shins, R>L (warm erythema both shins); some mild chronic venous stasis changes on shins neuro - proximal muscle weakness of shoulders/arms and hip region, LUE and LLE worse than RUE/RLE Results & Data Results & Data ([facility]) Vital Signs (Past 12 Hours) Vital Signs Temp Pulse Resp BP Pulse Ox O2 Del Method 04/29/22 16:14 37.0 C 86 16 120/70 95 Room Air 04/29/22 13:34 Room Air PG Care Time/CCT Total # of Minutes Spent Total Time Spent with Patient: Total time spent is greater than 50% in coordination of care (as documented) at patient's floor/unit and/or counseling patient: Coding Level of Care Code 53773 Subseq Hosp Care Lvl 3 Diagnoses Burst fracture of lumbar vertebra S32.001A Cellulitis L03.90 Urinary retention R33.9 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
[2022-04-29] MEDS: LANTUS PER UNIT CHARGE SQ SCH (21:37)
--- NOTE | 2022-04-30 04:55 | Billing Data ---
Date of Service April 30, 2022 Coding Level of Care Code 33510 Initial Inpt Care Lvl 3
[2022-04-30] MEDS: oxyCODONE HCL IR 5 MG TAB (IMMEDIATE RELEASE) PO PRN ×3 (05:58→19:50)
[2022-04-30] MEDS: ENOXAPARIN INJ 40 MG/0.4 ML SYR SQ SCH ×2 (05:58→17:18)
[2022-04-30 07:30] LABS: Hematocrit (blood only) 44.8 % (40.1-51.0); Mean Corpuscular Hemoglobin 29.2 pg (25.0-34.0); Mean Corpuscular Hgb Conc 33.5 g/dL (32.0-36.0); Mean Corpuscular Volume 87.2 fL (80.0-100.0); Mean Platelet Volume 10.8 fL (9.4-12.4); Platelet Count 199 K/uL (130-400); RDW Coefficient of Variation 13.5 % (11.5-14.5); RDW Standard Deviation 43.7 fL (36.4-46.3); Red Blood Count 5.14 M/uL (4.63-6.08); White Blood Count 11.97 K/ul (4.8-10.8)
[2022-04-30] MEDS: GABAPENTIN 300 MG CAP PO SCH ×2 (07:48→19:47)
[2022-04-30] MEDS: MULTIVITAMIN TAB PO SCH (07:48)
[2022-04-30] MEDS: DOXYCYCLINE HYCLATE 100 MG CAP PO SCH ×2 (07:48→19:47)
[2022-04-30] MEDS: lisinopril 5 MG TAB PO SCH (07:48)
[2022-04-30] MEDS: DICLOFENAC SOD 1% GEL 100 GM TUBE EXT SCH ×4 (07:49→19:46)
[2022-04-30] MEDS: ADVANCED PROBIOTIC 1250 MG CAPSULE PO SCH (07:49)
[2022-04-30] MEDS: cefTRIAXone SODIUM 2,000 MG in DEXTROSE 5% 50 ML IV SCH (07:49)
[2022-04-30] MEDS: EZETIMIBE 10 MG TABLET PO SCH (07:49)
[2022-04-30] MEDS: LIDOCAINE 5% 1 PATCH TD SCH (07:50)
[2022-04-30] MEDS: CALCITONIN SALMON NA 200 IU/AC 3.7 ML BTL SCH (07:50)
[2022-04-30] MEDS: ACETAMINOPHEN 500 MG TAB PO SCH ×3 (07:51→19:46)
[2022-04-30 07:52] LABS: BUN Creatinine Ratio 29.3 (10-20); Calcium 8.4 mg/dl (8.5-10.1); Creatinine Clr Calc Pharmacy 238.8 ml/min; Est GFR (African American) 147.1 ml/min; Est GFR (Non-African American) 126.9 ml/min; Potassium 3.7 mmol/L (3.5-5.1)
[2022-04-30] MEDS: INSULIN ASPART PER UNIT SC SCH ×4 (08:35→21:49)
[2022-04-30] MEDS ORDERED: predniSONE 20 MG TAB PO SCH (09:00)
[2022-04-30] MEDS: CYANOCOBALAMIN (B-12) 500 MCG TABLET PO SCH (10:43)
[2022-04-30] MEDS: HYDROmorphone INJ 0.5 MG/0.5 ML SYR IV PRN (17:50)
[2022-04-30] MEDS: traZODone HCL 100 MG TAB PO SCH (19:47)
[2022-04-30] MEDS: DULoxetine HCL 60 MG CAP PO SCH (19:47)
--- NOTE | 2022-04-30 21:22 | Hospitalist Progress Note ---
Date of Service April 30, 2022 Assessment & Plan (1) Burst fracture of lumbar vertebra: Plan: L1 burst fracture, 2nd to fall/trauma in shower at home 04/28/22 - CT lumbar spine showing the L1 burst fracture with minimal loss of height and NO no retropulsion of fragments Pain control - improved today with following regimen: * intranasal calcitonin * hydromorphone prn * tylenol 1gm TID * oxycodone 5mg q6h prn (use for pain scale 1-8/10) * stress dose steroids - give total 40mg of prednisone again today, then 30mg daily x 2 days, then 20mg daily x 2 days, then resume prior dose of 17mg (he previously was taking 10mg chronically, recently had increase to 20mg, then was being tapered by 1mg each week and was down to 17mg/day at time of admission) * ortho consult with Dr Lester when he is available * bed rest for now; PT, OT after Dr Lester sees * TLSO brace? Continue home duloxetine, gabapentin - consider adjustment in these meds for additional pain control if necessary recent 25-OH vit D level was wnl [37 on 04/16/22] (2) Cellulitis: Plan: RLE>LLE (shins) mild marked improvement overnight day #2 each of rocephin 2gm IV daily + doxy 100mg PO BID stop rocephin - change to keflex PO x 5 days starting tomorrow AM cont doxy 5 more days this likely explained his mild leukocytosis at time of admission (3) Urinary retention: Plan: s/p bhandari insertion 04/29/22 bladder scan was 500cc+ BPH? due to pain issues/use of narcotics? combination of factors? I do not think the L1 burst fracture is causing any neurogenic bladder issues checked urine cx and is negative consider flomax voiding trial in 5 days (4) half-way current use of systemic steroids: Plan: usually on 10mg/day for polymyositis was recently increased to 20mg as an outpatient, and has been tapering by 1mg/week now down to 17mg/day will give "stress" dose steroids for #1 above 40mg x 2 days, then 30mg x 2 days, then 20mg x 2 days, then resume 17mg/day wean to 30mg on 05/01/22 (5) Hypnotic-dependent sleep disorder: (6) Osteopenia: Plan: had DEXA early 2021 results show Z score of -0.5 recent 25-OH vit D level was wnl added miacalcin - this may help pain (7) Polymyositis-dermatomyositis: Plan: follows with [facility] - Dr Best on chronic prednisone also on Entyvio - for Crohn's? for polymyositis? both? CPK level stable today; relative to baseline CPK today's level is stable (8) Type 1 diabetes mellitus on insulin therapy: Plan: pharmacy consult appreciated no DKA defer basal-bolus management to pharmacy control is excellent Hba1c 6.1% in March (9) Hypertension: Plan: cont lisinopril 5mg daily (10) Hypercholesterolemia: Plan: cont zetia (11) Vitamin D deficiency: Plan: resolved recent level >30 (12) Sleep apnea: (13) Regional enteritis (Crohn's disease): Plan: controlled at this time (14) Migraines: Plan: no current headache (15) DVT prophylaxis: Plan: lovenox daily Plan updated by phone 04/29/22 progressing Admission and Anticipated Discharge Date Admission Date: April 28, 2022 Subjective pt's back pain is better today however, when he tries to move in bed, the pain worsens immediately no new pains or new paresthesias of his legs eating ok today drinking fluids denies any new complaints Review of Systems Review of Systems: gen - feels better overall today cv - no orthopnea pulm - no dyspnea GI - no abd pain Physical Exam Physical Exam: gen - comfortable appearing, NAD, pleasant; looks good today mouth - MMM neck - no JVD heart - RRR, s1 s2 lungs - CTA b/l abd - soft NT ND BS+ ext - trace edema b/l, pulses 2+ b/l skin - cellulitis b/l shins, R>L - improved today; warm erythema resolved; just mild pink skin remaining; baseline mild chronic venous stasis changes on shins also present neuro - proximal muscle weakness of shoulders/arms and hip region - unchanged from yesterday; distal strength largely intact Results & Data Results & Data ([facility]) Vital Signs (Past 12 Hours) Vital Signs Temp Pulse Pulse Resp BP Pulse Ox O2 Del Method 09/05/22 22:18 36.6 C 64 16 152/80 H 94 Room Air 04/30/22 08:00 Room Air 04/30/22 07:12 36.6 C 66 18 119/74 97 Room Air FiO2 04/30/22 22:18 04/30/22 08:00 04/30/22 07:12 Intake and Output 04/30/22 04/30/22 14:59 22:59 Intake Total 70 / 1020 950 / 1020 Output Total 2800 / 3400 Balance 70 / -2380 -1850 / -2380 Intake: IV 70 / 70 cefTRIAXone SODIUM 2,000 mg In 70 / 70 Dextrose 5% 50 ml @ 100 mls/hr IV DAILY [facility] Rx#:[id number] Oral 950 / 950 Output: Urine Amount (Catheter) 2800 / 3400 Bhandari/Indwelling 2800 / 3400 Laboratory Results Laboratory Results - last 24 hr 04/30/22 04/30/22 04/30/22 07:08 07:08 07:08 WBC 11.97 H RBC 5.14 Hgb 15.0 Hct 44.8 MCV 87.2 MCH 29.2 MCHC 33.5 RDW Std Deviation 43.7 RDW Coeff of Amy 13.5 Plt Count 199 MPV 10.8 Sodium 139 Potassium 3.7 Chloride 105 Carbon Dioxide 29 Anion Gap 5 BUN 12 Creatinine 0.41 L Est Cr Clr Drug Dosing 238.8 Est GFR ( Amer) 147.1 Est GFR (Non-Af Amer) 126.9 BUN/Creatinine Ratio 29.3 H Glucose 100 H POC Glucose Calcium 8.4 L Total Creatine Kinase 258 H Vitamin B12 321 04/30/22 04/30/22 04/30/22 08:09 12:09 17:14 WBC RBC Hgb Hct MCV MCH MCHC RDW Std Deviation RDW Coeff of Amy Plt Count MPV Sodium Potassium Chloride Carbon Dioxide Anion Gap BUN Creatinine Est Cr Clr Drug Dosing Est GFR ( Amer) Est GFR (Non-Af Amer) BUN/Creatinine Ratio Glucose POC Glucose 91 116 H 162 H Calcium Total Creatine Kinase Vitamin B12 04/30/22 20:35 WBC RBC Hgb Hct MCV MCH MCHC RDW Std Deviation RDW Coeff of Amy Plt Count MPV Sodium Potassium Chloride Carbon Dioxide Anion Gap BUN Creatinine Est Cr Clr Drug Dosing Est GFR ( Amer) Est GFR (Non-Af Amer) BUN/Creatinine Ratio Glucose POC Glucose 158 H Calcium Total Creatine Kinase Vitamin B12 Diagnostic Findings urine cx negative PG Care Time/CCT Total # of Minutes Spent Total Time Spent with Patient: Total time spent is greater than 50% in coordination of care (as documented) at patient's floor/unit and/or counseling patient: Coding Level of Care Code 67802 Subseq Hosp Care Lvl 2 Diagnoses Burst fracture of lumbar vertebra S32.001A Cellulitis L03.90 Urinary retention R33.9 half-way current use of systemic steroids Z79.52 Hypnotic-dependent sleep disorder G47.8 Osteopenia M85.80 Polymyositis-dermatomyositis M33.90 Type 1 diabetes mellitus on insulin therapy E10.9 Hypertension I10 Hypercholesterolemia E78.00 Vitamin D deficiency E55.9 Sleep apnea G47.30 Regional enteritis (Crohn's disease) K50.90 Migraines G43.909 DVT prophylaxis Z29.9
[2022-04-30] MEDS: LANTUS PER UNIT CHARGE SQ SCH (21:49)
[2022-04-30] MEDS: ZOLPIDEM TARTRATE 10 MG TAB PO PRN (23:20)
[2022-05-01] MEDS: oxyCODONE HCL IR 5 MG TAB (IMMEDIATE RELEASE) PO PRN ×4 (03:30→23:19)
[2022-05-01] MEDS: ENOXAPARIN INJ 40 MG/0.4 ML SYR SQ SCH ×2 (06:21→17:41)
[2022-05-01] MEDS: HYDROmorphone INJ 0.5 MG/0.5 ML SYR IV PRN (07:57)
[2022-05-01] MEDS: DICLOFENAC SOD 1% GEL 100 GM TUBE EXT SCH ×4 (08:02→21:11)
[2022-05-01] MEDS: MULTIVITAMIN TAB PO SCH (08:03)
[2022-05-01] MEDS: DOXYCYCLINE HYCLATE 100 MG CAP PO SCH ×2 (08:03→21:13)
[2022-05-01] MEDS: ADVANCED PROBIOTIC 1250 MG CAPSULE PO SCH (08:03)
[2022-05-01] MEDS: CYANOCOBALAMIN (B-12) 500 MCG TABLET PO SCH (08:04)
[2022-05-01] MEDS: EZETIMIBE 10 MG TABLET PO SCH (08:04)
[2022-05-01] MEDS: cephALEXin 500 MG CAP PO SCH ×3 (08:04→21:12)
[2022-05-01] MEDS: predniSONE 10 MG TABLET PO SCH (08:05)
[2022-05-01] MEDS: GABAPENTIN 300 MG CAP PO SCH ×2 (08:06→21:13)
[2022-05-01] MEDS: CALCITONIN SALMON NA 200 IU/AC 3.7 ML BTL SCH (08:06)
[2022-05-01] MEDS: ACETAMINOPHEN 500 MG TAB PO SCH ×3 (08:07→21:11)
[2022-05-01] MEDS: LIDOCAINE 5% 1 PATCH TD SCH (08:08)
[2022-05-01] MEDS: lisinopril 5 MG TAB PO SCH (08:14)
[2022-05-01] MEDS: CARBOHYDRATES FOR HYPOGLYCEMIA PO PRN ×3 (08:20→09:09)
[2022-05-01] MEDS: INSULIN ASPART PER UNIT SC SCH ×4 (09:55→21:03)
--- NOTE | 2022-05-01 10:10 | Consultation ---
Date of Consultation May 01, 2022 Assessment & Plan (1) Burst fracture of lumbar vertebra: Dr. Lester has reviewed CT scan findings. At this point in time, his pain is decently controlled. He is neurologically intact. No evidence of significant canal encroachment at the level of the burst fracture. We have discussed pursuing conservative treatment versus kyphoplasty. currently, we have elected to trial TLSO bracing with very light activity/ambulation. If he is struggling with this or pain becomes out of control we will consider kyphoplasty. Ambulate ad gene once brace has been received. Must wear TLSO at all times except bathing. History of Present Illness Reason for Consultation: Acute L1 burst fracture Attending Physician: Dolores Queen MD History of Present Illness Is a very pleasant 61-year-old gentleman who sustained a fall at home while in the shower on April 28. He slipped while changing positions and missed his shower chair. He was unable to get up on his own but his is at home and assisted him. He was taken to [facility] emergency room for evaluation. He was subsequently discharged. He then returned back to [facility] due to poor pain control and his is unable to care for him. Currently he states his pain is a 6 out of 10. He states it was better yesterday. He has no radicular pain. He is on chronic steroids due to polymyositis.His current pain is along the lower thoracic region and left sacroiliac region Allergies Allergy/AdvReac Type Severity Reaction Status Date / Time mercaptopurine AdvReac Severe JAUNDICE Verified 04/28/22 22:41 Home Medications Medication Instructions Recorded Confirmed Type multivitamin (Daily Multi-Vitamin 1 tab PO QAM 03/04/19 04/28/22 History tablet) blood sugar diagnostic (OneTouch #10 ea 04/01/19 04/10/22 History Ultra Blue Test Strip) vedolizumab 300 mg intravenous 300 mg IV Q8WK 04/01/19 04/28/22 History solution diphenoxylate-atropine 2.5 1 tab PO QID PRN diarrhea #360 tabs 07/20/19 04/28/22 Rx mg-0.025 mg tablet CPAP Supplies #1 ea 10/08/19 04/10/22 Rx duloxetine 60 mg capsule,delayed 60 mg PO QPM 03/01/20 04/28/22 History release flash glucose scanning reader #1 ea 06/21/20 04/10/22 Rx (FreeStyle [place] 14 Day [place]) prednisone 5 mg tablet 10 mg PO QAM #90 tabs 05/19/21 04/28/22 History trazodone 100 mg tablet 100 mg PO HS #90 tabs 05/22/21 04/28/22 Rx insulin aspart See Rx Instructions subcut 08/07/21 04/28/22 Rx (niacinamide)(U-100) 100 unit/mL(3 .COMPLEX 90 days #100 mL mL) subcutaneous pen (Fiasp FlexTouch U-100 Insulin) lisinopril 5 mg tablet 5 mg PO QAM #90 tabs 11/06/21 04/28/22 Rx flash glucose sensor (FreeStyle #2 ea 12/12/21 04/10/22 Rx [place] 14 Day Sensor kit) zolpidem 12.5 mg tablet,extended 12.5 mg PO HS PRN insomnia #30 tabs 02/13/22 04/28/22 Rx release,multiphase pen needle, diabetic 32 gauge x #500 ea 03/12/22 04/10/22 Rx 5/32" (BD Ultra-Fine Marsha Pen Needle) gabapentin 300 mg capsule 300 mg PO BID #180 caps 03/15/22 04/28/22 Rx ezetimibe 10 mg tablet 10 mg PO DAILY 04/28/22 04/28/22 History hydrocodone 5 mg-acetaminophen 325 1 tab PO Q6H PRN Pain 04/28/22 04/28/22 History mg tablet insulin glargine 100 unit/mL (3 65 unit subcut QPM 04/28/22 04/28/22 History mL) subcutaneous pen (Basaglar KwikPen U-100 Insulin) Patient History Medical History Chronic back pain Chronic steroid use Crohn's disease Diverticulosis Dysfunction of right eustachian tube Elevated hemoglobin A1c History of intestinal obstruction History of migraine HLD (hyperlipidemia) HTN (hypertension) Inclusion body myositis Follows with [facility] Rheumatology Mixed conductive and sensorineural hearing loss of right ear with restricted hearing of left ear Osteoarthritis Polymyositis-dermatomyositis Sleep apnea CPAP Statin myopathy Type 1 diabetes mellitus on insulin therapy Wheelchair bound Surgical History History of biopsy muscle History of cholecystectomy History of colonoscopy History of esophagogastroduodenoscopy (EGD) History of incision and drainage (2017) I&D of sebaceous cyst right upper back History of intestinal surgery History of surgery (2017) epidermal cyst excision History of wisdom tooth extraction Family History Unknown Breast cancer Father Diabetes Father Hearing loss Stroke Mother Hypertension Cancer Heart disease Other Allergies No family history of adverse response to anesthesia No family history of bleeding disorder Denies family history of Ovarian cancer Prostate cancer Myocardial infarction Colorectal cancer Social History Smoking Status: Former smoker Tobacco Type: Cigarettes Age Started Using Tobacco: 14; Age Quit Using Tobacco: 17; Smoking End Date: 40 years ago; Second Hand Exposure: No; Do You Dip or Chew Tobacco: No; Hx Alcohol Use: No Hx Substance Use: No Preferred Language: [place] Communication Ability: Effective Visual Impairment: No Limitations Hearing Ability: Normal Investigation Division [employer] Required: No Beliefs That Will Affect Care: None marital status: Current Living Situation: Spouse current occupational status: employed current occupation: security How many Children do You have: 1 Other Information That Helps Us Care for You: No Feels Safe at Home: Yes Safety Concerns: Feels Safe At This Time Childhood Exposure to Second-Hand Smoke: Yes Diet Comment: regular caffeine: Yes during the past year weight has: remained stable Dental Care, Regularly: Yes Physical Activity Frequency: Does not Exercise Seatbelt Use: always Sunscreen Use: Yes Assistive Devices: CPAP, Raised Toilet Seat, Scooter/Electric Scooter, Stair Lift and Walker Review of Systems Review of Systems: All systems reviewed & are unremarkable except as noted in HPI & below Physical Exam Physical Exam: He sitting up in bed in no acute distress Alert and oriented x3 He is tender to palpation of the left sciatic notch. Nontender to patient percussion of the midline thoracolumbar spine. Strength is intact bilateral lower extremities Significant edema noted bilateral lower extremities Negative logrolling bilateral lower extremities Constitutional: well developed Eyes: normal visual kee by confrontation ENMT: external ear and nose normal, oropharynx normal Neck: normal visual inspection Respiratory: normal respiratory effort Cardiovascular: Extremities: + edema Gastrointestinal (Abdomen): Inspection/Auscultation: abdomen normal to inspection Musculoskeletal: Spine: + sciatic notch tenderness Skin: no rashes, warm and dry Neurologic: normal touch/pain/proprioception and moves all extremities Psychiatric: Eye Contact: good eye contact Speech: normal rate/rhythm/volume of speech Results & Data ([facility]) Vital Signs (Past 12 Hours) Vital Signs Temp Pulse Pulse Resp BP Pulse Ox O2 Del Method 05/01/22 08:13 144/80 H 05/01/22 07:44 36.7 C 66 16 151/88 H 97 Room Air 05/01/22 03:26 62 14 96 05/01/22 00:26 74 12 93 04/30/22 22:18 36.6 C 64 16 152/80 H 94 Room Air FiO2 05/01/22 08:13 05/01/22 07:44 05/01/22 03:26 21 05/01/22 00:26 21 04/30/22 22:18 Diagnostic Findings [place], [place] [phone] CT Scan Report Patient:GAL MEADE Admit Date:04/28/22 MR#:[id number] Address1:[address] [place] [address] Acct ID:[id number] Address2: Date:1960 [facility] Zip:[place] [address] Age:61 Location:ED Sex:M Room/Bed: Att Phy: Diagnosis:FALL, BACK PAIN Maryellen Phy:Micheal Hathaway, ZAHEER, ADRIÁN Service Date:04/28/22 [facility] Phy: Interpreting Phy:Luis Alfredo Lopez MDAdmit Phy: Ordering Phy:Evans Chong M.D. cc: ~ LUMBAR SPINE CT CT DOSE: 2205.18 mGy.cm HISTORY: Back pain. Fall. TECHNIQUE: Multiaxial CT images of the lumbar spine were performed and reformatted in the sagittal and coronal plane without the use of contrast. A dose lowering technique was utilized adhering to the principles of ALARA. COMPARISON: None. FINDINGS: There is an acute L1 vertebral body fracture involving both the superior and inferior endplates. Therefore, this is consistent with a burst fracture. This results in minimal loss of height. No associated retropulsion. There is mild paravertebral edema at this level. Mild disc space narrowing at L3-L4, L4-5, and L5-S1. The visualized sacrum is intact. Subcutaneous edema within the lumbar region. No significant central canal narrowing. IMPRESSION: 1. An acute L1 burst fracture demonstrating minimal loss of height. No associated retropulsion. 2. Mild degenerative disc disease within the mid to lower lumbar spine. ACT 112: Negative or not required by law. Electronically signed by: Luis Alfredo Lopez M.D. 04/28/2022 1:29 PM Dictated:04/28/22 1229 Transcribed: 04/28/22 1232
--- NOTE | 2022-05-01 13:32 | Hospitalist Progress Note ---
Date of Service May 01, 2022 Assessment & Plan (1) Burst fracture of lumbar vertebra: Plan: L1 burst fracture, 2nd to fall/trauma in shower at home 04/28/22 - CT lumbar spine showing the L1 burst fracture with minimal loss of height and NO no retropulsion of fragments Previously though, his pain is mostly in the left lower back near the PSIS and not at the site of L1-perhaps some sort of radicular pain? His neuro exam Will not normal seems unchanged from previous description Appreciate orthopedic spine consultation-plan for TLSO brace and if not improving with pain then could perform kyphoplasty at some point in the near future Pain control - improved with following regimen: * intranasal calcitonin * hydromorphone prn * tylenol 1gm TID * oxycodone 5mg q6h prn (use for pain scale 1-8/10) * stress dose steroids -continue 30mg daily x 2 days, then on 05/03 start 20mg daily x 2 days, then resume prior dose of 17mg (he previously was taking 10mg chronically, recently had increase to 20mg, then was being tapered by 1mg each week and was down to 17mg/day at time of admission) Continue home duloxetine, gabapentin - consider adjustment in these meds for additional pain control if necessary recent 25-OH vit D level was wnl [37 on 04/16/22] -Awaiting TLSO brace -Patient wants to see how he does with PT after receiving TLSO brace and decide if he will go to rehab or not -we will discuss with orthopedic spine surgery if they think his left lower back pain is related to his L1 burst fracture or if we need further imaging with MRI (2) Cellulitis: Plan: RLE>LLE (shins) mild Now with marked improvement after receiving IV Rocephin and doxycycline Continue Keflex and doxycycline -last date of treatment will be 05/05 this likely explained his mild leukocytosis at time of admission (3) Urinary retention: Plan: s/p bhandari insertion 04/29/22 bladder scan was 500cc+ BPH? due to pain issues/use of narcotics? combination of factors? I do not think the L1 burst fracture is causing any neurogenic bladder issues checked urine cx and is negative -We will start flomax 0.4 mg p.o. at bedtime tonight voiding trial in 1 week and follow-up with urology as an outpatient (4) snf current use of systemic steroids: Plan: usually on 10mg/day for inclusion body polymyositis was recently increased to 20mg as an outpatient, and has been tapering by 1mg/week now down to 17mg/day will give "stress" dose steroids for #1 above 40mg x 2 days, then 30mg x 2 days, then 20mg x 2 days, then resume 17mg/day wean to 30mg on 05/01/22 (5) Hypnotic-dependent sleep disorder: (6) Osteopenia: Plan: had DEXA early 2021 results show Z score of -0.5 recent 25-OH vit D level was wnl added miacalcin - this may help pain (7) Polymyositis-dermatomyositis: Plan: follows with [facility] - Dr Best on chronic prednisone also on Entyvio - for Crohn's? for polymyositis? both? CPK level stable relative to baseline CPK (8) Type 1 diabetes mellitus on insulin therapy: Plan: pharmacy consult appreciated no DKA defer basal-bolus management to pharmacy control is excellent and with hypoglycemia today Hba1c 6.1% in March (9) Hypertension: Plan: cont lisinopril 5mg daily (10) Hypercholesterolemia: Plan: cont zetia (11) Vitamin D deficiency: Plan: resolved recent level >30 (12) Sleep apnea: (13) Regional enteritis (Crohn's disease): Plan: controlled at this time (14) Migraines: Plan: no current headache (15) DVT prophylaxis: Plan: lovenox daily Plan Disposition-awaiting TLSO brace and repeat PT consultation PT initially recommending acute rehab the patient unsure if he is agreeable to t his or not depending on how he does once the brace is in place Admission and Anticipated Discharge Date Admission Date: April 28, 2022 Subjective Patient reports having pain in left lower back none in the mid back where L1 burst fracture is. Otherwise denies chest pains or shortness of breath, no nausea or vomiting, is eating well. No abdominal pains. No bowel movement since admission. Still has Bhandari catheter in place. Is pain in the left lower back with movement of his lower extremities. Review of Systems Review of Systems: All systems reviewed & are unremarkable except as noted in HPI & below Physical Exam Physical Exam: gen - comfortable appearing, NAD, pleasant mouth - MMM heart - RRR, s1 s2 lungs - CTA b/l abd - soft NT ND BS+ ext - trace edema b/l, pulses 2+ b/l, positive tenderness palpation the left lower back, no masses or hematoma, no erythema skin - cellulitis b/l shins very minimal, R>L, no warmth, just mild pink skin remaining; baseline mild chronic venous stasis changes on shins also present neuro - proximal muscle weakness of shoulders/arms and hip region - unchanged from yesterday; distal strength largely intact except with bilateral foot drop Results & Data Results & Data ([facility]) Vital Signs (Past 12 Hours) Vital Signs Temp Pulse Pulse Resp BP Pulse Ox O2 Del Method 05/01/22 07:53 Room Air 05/01/22 08:13 144/80 H 05/01/22 07:44 36.7 C 66 16 151/88 H 97 Room Air 05/01/22 03:26 62 14 96 FiO2 05/01/22 07:53 05/01/22 08:13 05/01/22 07:44 05/01/22 03:26 21 Laboratory Results 05/01/22 05/01/22 05/01/22 Range/Units 11:48 09:33 09:05 POC Glucose 228 H 112 H 69 L* (70-99) mg/dl 05/01/22 05/01/22 05/01/22 Range/Units 09:03 08:42 08:40 POC Glucose 66 L* 54 L* 62 L* (70-99) mg/dl 05/01/22 05/01/22 04/30/22 Range/Units 08:16 08:14 20:35 POC Glucose 49 L* 53 L* 158 H (70-99) mg/dl 04/30/22 Range/Units 17:14 POC Glucose 162 H (70-99) mg/dl PG Care Time/CCT Total # of Minutes Spent Total Time Spent with Patient: Total time spent is greater than 50% in coordination of care (as documented) at patient's floor/unit and/or counseling patient: Coding Level of Care Code 78988 Subseq Hosp Care Lvl 2 Diagnoses Burst fracture of lumbar vertebra S32.001A Cellulitis L03.90 Urinary retention R33.9 snf current use of systemic steroids Z79.52 Hypnotic-dependent sleep disorder G47.8 Osteopenia M85.80 Polymyositis-dermatomyositis M33.90 Type 1 diabetes mellitus on insulin therapy E10.9 Hypertension I10 Hypercholesterolemia E78.00 Vitamin D deficiency E55.9 Sleep apnea G47.30 Regional enteritis (Crohn's disease) K50.90 Migraines G43.909 DVT prophylaxis Z29.9
--- NOTE | 2022-05-01 13:39 | Pharmacy Report ---
Pharmacy Glycemic Short Note 2 - Date of Service May 01, 2022 - Glycemic Short BSG Results (Last 24 hours): 04/30/22 04/30/22 05/01/22 17:14 20:35 08:14 POC Glucose 162 H 158 H 53 L* 05/01/22 05/01/22 05/01/22 08:16 08:40 08:42 POC Glucose 49 L* 62 L* 54 L* 05/01/22 05/01/22 05/01/22 09:03 09:05 09:33 POC Glucose 66 L* 69 L* 112 H 05/01/22 11:48 POC Glucose 228 H OUTPATIENT ANTIDIABETIC REGIMEN: * Basaglar 65 units SQ HS * Aspart TID meals, 38 units with breakfast, 34 units with lunch, 38 units with dinner ASSESSMENT: * Patient's BSGs yesterday were [id number] mg/dL and this morning was 53 mg/dL. Patient received 106 units of insulin yesterday (60 units of basal and 40 units of bolus) * Prednisone decreased from 40 mg daily to 30 mg daily today. * Decrease Lantus from 60 units to 45 units. This represents a 25% decrease and creates a 1:1 with basal: bolus. Will not decrease further as patient is a type 1 diabetic. 0400 check overnight to ensure patient's BSGs do not rise too much overnight. * Continue Novolog. BACKGROUND * 61 year old male, PMH polymyositis-dermatomyositis, chronic muscle weakness, T1DM, HTN, HL, admitted for L1 burst fracture from fall in the shower. * No plans for surgery at this time, treating with pain meds and prednisone burst. * Patient on prednisone 10 mg PO daily at home - increased to 40mg daily today, tighten CR. * Blood sugar 252mg/dl on admission, given 60 units Lantus last night. * Type 1 DM diet. PLAN FOR INPATIENT GLYCEMIC CONTROL: * Basal insulin * Lantus 45 units SQ HS * Bolus insulin * NovoLog per scale ACHS or Q6hrs while NPO * Goal Range: Low 110 mg/dL - High 140 mg/dL * Correction Factor: 12 mg/dL/unit * Nutritional / Prandial insulin per carb ratio of 1 unit per 3 grams CHO consumed
[2022-05-01] MEDS ORDERED: TAMSULOSIN HCL 0.4 MG CAP PO SCH (21:00)
[2022-05-01] MEDS ORDERED: LANTUS PER UNIT CHARGE SQ SCH (21:00)
[2022-05-01] MEDS: DULoxetine HCL 60 MG CAP PO SCH (21:12)
[2022-05-01] MEDS: traZODone HCL 100 MG TAB PO SCH (21:14)
[2022-05-01] MEDS: ZOLPIDEM TARTRATE 10 MG TAB PO PRN (23:19)
[2022-05-02] MEDS ORDERED: INSULIN ASPART PER UNIT SC SCH (04:00)
[2022-05-02] MEDS: ENOXAPARIN INJ 40 MG/0.4 ML SYR SQ SCH (06:00)
[2022-05-02 06:36] LABS: Hematocrit (blood only) 46.4 % (40.1-51.0); Hemoglobin 15.6 g/dl (14.0-18.0); Mean Corpuscular Hemoglobin 29.4 pg (25.0-34.0); Mean Corpuscular Hgb Conc 33.6 g/dL (32.0-36.0); Mean Corpuscular Volume 87.5 fL (80.0-100.0); Mean Platelet Volume 10.5 fL (9.4-12.4); Platelet Count 223 K/uL (130-400); RDW Coefficient of Variation 13.4 % (11.5-14.5); RDW Standard Deviation 43.1 fL (36.4-46.3); White Blood Count 10.89 K/ul (4.8-10.8)
[2022-05-02 07:08] LABS: Creatinine Clr Calc Pharmacy 251.1 ml/min; Est GFR (African American) > 150.0 ml/min; Est GFR (Non-African American) 129.5 ml/min
[2022-05-02] MEDS: DOXYCYCLINE HYCLATE 100 MG CAP PO SCH (08:13)
[2022-05-02] MEDS: MULTIVITAMIN TAB PO SCH (08:13)
[2022-05-02] MEDS: cephALEXin 500 MG CAP PO SCH ×2 (08:13→14:22)
[2022-05-02] MEDS: ACETAMINOPHEN 500 MG TAB PO SCH ×2 (08:13→14:22)
[2022-05-02] MEDS: GABAPENTIN 300 MG CAP PO SCH (08:13)
[2022-05-02] MEDS: CYANOCOBALAMIN (B-12) 500 MCG TABLET PO SCH (08:13)
[2022-05-02] MEDS: DICLOFENAC SOD 1% GEL 100 GM TUBE EXT SCH ×2 (08:14→12:14)
[2022-05-02] MEDS: lisinopril 5 MG TAB PO SCH (08:14)
[2022-05-02] MEDS: EZETIMIBE 10 MG TABLET PO SCH (08:14)
[2022-05-02] MEDS: ADVANCED PROBIOTIC 1250 MG CAPSULE PO SCH (08:14)
[2022-05-02] MEDS: predniSONE 10 MG TABLET PO SCH (08:14)
[2022-05-02] MEDS: CALCITONIN SALMON NA 200 IU/AC 3.7 ML BTL SCH (08:14)
[2022-05-02] MEDS: LIDOCAINE 5% 1 PATCH TD SCH (08:15)
[2022-05-02] MEDS: INSULIN ASPART PER UNIT SC SCH ×2 (08:24→12:13)
--- NOTE | 2022-05-02 11:09 | Pharmacy Report ---
Pharmacy Glycemic Short Note 2 - Date of Service May 02, 2022 - Glycemic Short BSG Results (Last 24 hours): 05/01/22 05/01/22 05/01/22 11:48 17:22 20:17 POC Glucose 228 H 154 H 169 H 05/02/22 05/02/22 04:05 08:13 POC Glucose 84 80 OUTPATIENT ANTIDIABETIC REGIMEN: * Basaglar 65 units SQ HS * Aspart TID meals, 38 units with breakfast, 34 units with lunch, 38 units with dinner ASSESSMENT: 05/02: * Patient received total 97 units of insulin yesterday: 45 units basal and 52 units bolus. * Fasting BSG today was 80 mg/dl. Reduced basal dose at HS further by 15%. * Prednisone 30 mg daily continues today. * BSGs yesterday were 23-204-123-169 mg/dl. * Novolog parameters set at lunch yesterday resulted in good control in the evening. Continued the same today. 05/01/22: * Patient's BSGs yesterday were [phone] mg/dL and this morning was 53 mg/dL. Patient received 106 units of insulin yesterday (60 units of basal and 40 units of bolus) * Prednisone decreased from 40 mg daily to 30 mg daily today. * Decrease Lantus from 60 units to 45 units. This represents a 25% decrease and creates a 1:1 with basal: bolus. Will not decrease further as patient is a type 1 diabetic. 0400 check overnight to ensure patient's BSGs do not rise too much overnight. * Continue Novolog. BACKGROUND * 61 year old male, PMH polymyositis-dermatomyositis, chronic muscle weakness, T1DM, HTN, HL, admitted for L1 burst fracture from fall in the shower. * No plans for surgery at this time, treating with pain meds and prednisone burst. * Patient on prednisone 10 mg PO daily at home - increased to 40mg daily today, tighten CR. * Blood sugar 252mg/dl on admission, given 60 units Lantus last night. * Type 1 DM diet. PLAN FOR INPATIENT GLYCEMIC CONTROL: * Basal insulin * Lantus 38 units SQ HS * Bolus insulin * NovoLog per scale ACHS or Q6hrs while NPO * Goal Range: Low 110 mg/dL - High 140 mg/dL * Correction Factor: 12 mg/dL/unit * Nutritional / Prandial insulin per carb ratio of 1 unit per 3 grams CHO consumed
--- NOTE | 2022-05-02 14:13 | Discharge Summary ---
Date of Service May 02, 2022 Admission HPI Per Admitting Provider Edmundo Rodrigues is a 61-year-old male with past medical history of polymyositis- dermatomyositis, chronic muscle weakness, type 1 diabetes on insulin, hypertension, hyperlipidemia who presented via EMS after a fall in the shower. Patient states he slipped on soapy surface and fell back to a seated position, hitting his head but no loss of consciousness. He developed significant lower back pain at that time, for which reason his did not help him up and EMS was called instead. He was evaluated earlier in the day in our ED CT lumbar spine at that time showed acute L1 burst fracture demonstrating minimal loss of height, no associated retropulsion. Head CT did not show any acute processes. Pelvic CT did not show any fractures. The patient received pain control and decided to return home and attempt to treat the pain as outpatient. However, he returned later in the evening due to intractable back pain. He states he was unable to get up from bed due to significant pain. Due to inability to ambulate and intractable back pain, patient was recommended for admission. He had lab work significant for a white count of 14.5, normal electrolytes, normal LFTs. At the time of my evaluation, patient is laying flat in bed. Unable to move much, but appears in no acute distress. No chest pain, palpitations, shortness of breath, cough, headache, dizziness, new onset neurologic deficits, nausea, vomiting, abdominal pain. Principal Diagnosis L1 burst fracture, Left SI joint pain, leg cellulitis, urinary retention Discharge Exam gen - comfortable appearing, NAD, pleasant mouth - MMM heart - RRR, s1 s2 lungs - CTA b/l abd - soft NT ND BS+ ext - trace edema b/l, pulses 2+ b/l, positive tenderness palpation the left lower back, no masses or hematoma, no erythema skin - cellulitis b/l shins very minimal, R>L, no warmth, just mild pink skin remaining; baseline mild chronic venous stasis changes on shins also present neuro - proximal muscle weakness of shoulders/arms and hip region - unchanged from yesterday; distal strength largely intact except with bilateral foot drop Discharge Data Allergies Allergy/AdvReac Type Severity Reaction Status Date / Time mercaptopurine AdvReac Severe JAUNDICE Verified 04/28/22 22:41 Consultations 04/28/22 21:56 ED Decision to Admit Stat 04/30/22 09:53 Consult Orthopedic Surgery Routine Hospital Course (1) Burst fracture of lumbar vertebra: L1 burst fracture, 2nd to fall/trauma in shower at home 04/28/22 - CT lumbar spine showing the L1 burst fracture with minimal loss of height and NO no retropulsion of fragments pain is mostly in the left lower back near the left SI joint and not at the site of L1-likely unrelated His neuro exam wile not normal seems unchanged from previous description Appreciate orthopedic spine consultation-plan for TLSO brace and if not improving with pain then could perform kyphoplasty at some point in the near future-but again , pain is not coming from L1 fracture Consider SI joint intervention if not improving f/u with Dr. Lester in 2 weeks Pain control - improved with following regimen: * intranasal calcitonin * tylenol 1gm TID * hydrocodone 5mg q6h prn (use for pain scale 1-8/10) * stress dose steroids -continue 30mg daily x 2 days, then on 05/03 start 20mg daily x 2 days, then resume prior dose of 17mg (he previously was taking 10mg chronically, recently had increase to 20mg, then was being tapered by 1mg each week and was down to 17mg/day at time of admission) Continue home duloxetine, gabapentin - consider adjustment in these meds for additional pain control if necessary as na outpt recent 25-OH vit D level was wnl [37 on 04/16/22] -wear TLSO brace at all times, light ambulation -dc to home with home health at patient's preference (2) Cellulitis: RLE>LLE (shins) mild Now with marked improvement after receiving IV Rocephin and doxycycline Continue Keflex and doxycycline -last date of treatment will be 05/05 this likely explained his mild leukocytosis at time of admission (3) Urinary retention: s/p bhandari insertion 04/29/22 bladder scan was 500cc+ BPH? due to pain issues/use of narcotics? combination of factors? I do not think the L1 burst fracture is causing any neurogenic bladder issues checked urine cx and is negative - started flomax 0.4 mg p.o. 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: usually on 10mg/day for inclusion body polymyositis was recently increased to 20mg as an outpatient, and has been tapering by 1mg/week now down to 17mg/day will give "stress" dose steroids for #1 above 40mg x 2 days, then 30mg x 2 days, then 20mg x 2 days, then resume 17mg/day weaned to 30mg on 05/01/22 (5) Hypnotic-dependent sleep disorder: (6) Osteopenia: had DEXA early 2021 results show Z score of -0.5 recent 25-OH vit D level was wnl added miacalcin - this may help pain (7) Polymyositis-dermatomyositis: follows with [facility] - Dr Best on chronic prednisone also on Entyvio - for Crohn's? for polymyositis? both? CPK level stable relative to baseline CPK (8) Type 1 diabetes mellitus on insulin therapy: pharmacy consult appreciated no DKA defer basal-bolus management to pharmacy control is excellent Hba1c 6.1% in March (9) Hypertension: cont lisinopril 5mg daily (10) Hypercholesterolemia: cont zetia (11) Vitamin D deficiency: resolved recent level >30 (12) Sleep apnea: (13) Regional enteritis (Crohn's disease): controlled at this time (14) Migraines: no current headache (15) DVT prophylaxis: lovenox daily Plan Disposition-dc to home with HH at p t's preference Total Time Total Time Spent Total Time Spent (In Minutes): 35 min Discharge Plan Discharge Items Patient Disposition: Home - Home Health Services Reason For Visit: L1 BURST FRACTURE Discharge Diagnosis: L1 burst fracture, left sacroiliac joint pain, leg cellulitis Condition on Discharge: Fair Activity: As commented below Lifting: No more than 5 pounds Bathing: No limitations Exercise/Sports: As tolerated Non-emergency contact: Primary Care Provider and Surgeon Call non-emergency contact if: you have any medication questions, your symptoms worsen and your pain is not controlled Follow-up/Referrals: Micheal Hathaway III, CRNP [Primary Care Provider] - (Follow up within 1-2 weeks) Jimmie Lester DO [Surgeon] - (Follow up within 2 weeks) Diet: Carb Consistent or DM2 Addtl Attending Provider Instructions: Please finish out the prednisone burst at 20mg daily x 2 more days then go back to your usual 17mg daily and taper down as previously instructed. You can use lidocaine patches OTC for your left lower back pain and take hydrocodone as needed for moderate-severe pain. Remain on Flomax daily for your urinary retention issue. You may need follow up with a Urologist, but can discuss with your PCP. Follow up with Dr. Lester of Spine Surgery in 2 weeks. Wear the back brace at all times except when bathing. You will need to finish out 3 more days of the oral antibiotics for the leg cellulitis. Pending Studies at Discharge: No Stand-Alone Forms: My [facility] [employer], Smoking Cessation Medications and DC Order Prescriptions: New doxycycline hyclate 100 mg Capsule 100 mg PO BID 3 Days Qty: 6 0RF acetaminophen [Tylenol Extra Strength] 500 mg Tablet 1,000 mg PO TID Qty: 30 0RF Rx Instructions: OTC tamsulosin 0.4 mg Capsule 0.4 mg PO HS Qty: 14 0RF cephalexin 500 mg Capsule 500 mg PO TID 3 Days Qty: 9 0RF diclofenac sodium [Voltaren Arthritis Pain] 1 % Gel 4 g EXT QID PRN (Reason: joint pain) Qty: 100 0RF Rx Instructions: please give tube from hospital calcitonin (salmon) 200 unit/actuation [place],Non-Aerosol 1 spray NA DAILY Qty: 3.7 0RF lidocaine 5 % Adhesive Patch,Medicated 1 patch transdermal QAM Qty: 30 0RF Rx Instructions: OTC cyanocobalamin (vitamin B-12) 1,000 mcg tablet 1,000 mcg PO DAILY Qty: 30 0RF Rx Instructions: OTC Continued (DME) FreeStyle [place] 14 Day [place] Misc See Rx Instructions .MEDSUPPLY Qty: 1 0RF Rx Instructions: Use to test blood glucose 4 times daily trazodone 100 mg tablet 100 mg PO HS Qty: 90 3RF Fiasp FlexTouch U-100 Insulin 100 unit/mL (3 mL) insulin pen See Rx Instructions subcut .COMPLEX 90 Days Qty: 100 3RF Rx Instructions: 38U at Breakfast, 34U at Lunch, 38U at supper; sliding scale subcut; lisinopril 5 mg tablet 5 mg PO QAM Qty: 90 3RF (DME) FreeStyle [place] 14 Day Sensor Kit See Rx Instructions .MEDSUPPLY Qty: 2 6RF Rx Instructions: Use to test blood glucose 4 times daily zolpidem 12.5 mg tablet,ext release multiphase 12.5 mg PO HS PRN (Reason: insomnia) Qty: 30 2RF (DME) pen needle, diabetic [BD Ultra-Fine [place] Pen Needle] 32 gauge x 5/32" needle See Dose Instructions .ROUTE .MEDSUPPLY Qty: 500 1RF Rx Instructions: Use to inject insulin 4 times daily gabapentin 300 mg capsule 300 mg PO BID Qty: 180 1RF multivitamin [Daily Multi-Vitamin] tablet 1 tab PO QAM vedolizumab 300 mg recon soln 300 mg IV Q8WK (DME) OneTouch Ultra Blue Test Strip strip See Dose Instructions .ROUTE .MEDSUPPLY Qty: 10 Rx Instructions: TWICE DAILY prednisone 5 mg tablet 10 mg PO QAM Qty: 90 diphenoxylate-atropine 2.5-0.025 mg tablet 1 tab PO QID PRN (Reason: diarrhea) Qty: 360 0RF (DME) CPAP Supplies Misc See Rx Instructions .ROUTE .MEDSUPPLY Qty: 1 0RF Rx Instructions: CPAP supplies: headgear, hose/tubing, filters, all necessary supplies duloxetine 60 mg capsule,delayed release(DR/EC) 60 mg PO QPM hydrocodone-acetaminophen 5-325 mg tablet 1 tab PO Q6H PRN (Reason: Pain) ezetimibe 10 mg tablet 10 mg PO DAILY Rx Instructions: TAKE 1 TABLET DAILY insulin glargine [Basaglar KwikPen U-100 Insulin] 100 unit/mL (3 mL) insulin pen 65 unit subcut QPM Rx Instructions: INJECT 65 UNITS (0.65ML) SUBCUTANEOUSLY EVERY EVENING Discharge Orders: Discharge Order (Routine); Ordered 05/02/22 Ordered By: Dolores Queen Admission Data Admit Date/Time: 04/28/22 22:51 Attending Provider: Dolores Queen Admit Provider: Kenny Knight Primary Care Provider: Micheal Hathaway III Other Providers: Shukri Herrera ; Jimmie Lester ; [facility] Coding Level of Care Code D/C DAY MANAGEMENT >30 MINS Diagnoses Burst fracture of lumbar vertebra S32.001A Cellulitis L03.90 Urinary retention R33.9 shelter current use of systemic steroids Z79.52 Hypnotic-dependent sleep disorder G47.8 Osteopenia M85.80 Polymyositis-dermatomyositis M33.90 Type 1 diabetes mellitus on insulin therapy E10.9 Hypertension I10 Hypercholesterolemia E78.00 Vitamin D deficiency E55.9 Sleep apnea G47.30 Regional enteritis (Crohn's disease) K50.90 Migraines G43.909 DVT prophylaxis Z29.9
[2022-05-02] MEDS ORDERED: LANTUS PER UNIT CHARGE SQ SCH (21:00)
[2022-05-07] MEDS ORDERED: fentaNYL citrate 100 MCG/2 ML VIAL ONE ×2 (12:56→14:13)
[2022-05-07] MEDS ORDERED: MIDAZOLAM HCL 1 MG/ML 2ML VIAL ONE (12:56)
[2022-05-07] MEDS ORDERED: HYDROCORTISONE SOD SUCCINATE 100 MG/2 ML VIAL ONE (13:51)
[2022-05-07] MEDS ORDERED: ROCURONIUM BROMIDE 10 MG/ML 5 ML VIAL IV ONE (13:51)
[2022-05-07] MEDS ORDERED: LIDOCAINE 2% MPF LOCAL 5 ML VIAL INFIL ONE (13:51)
[2022-05-07] MEDS ORDERED: PROPOFOL IV EMULSION 10 MG/ML 20 ML VIAL IV ONE (13:51)
== END 2022-05-02 16:45 | disposition home health service (06) | DRG 552 ==
LOC: ED 21:14 → 3E 22:51 → SUATTDRO 22:51 → 3E 23:16

== ENCOUNTER 2022-05-03 21:03 | Inpatient (IN) ==
[2022-05-03] MEDS ORDERED: HYDROmorphone INJ 1 MG/ML SYRINGE IV STA (23:58)
[2022-05-03] MEDS ORDERED: ONDANSETRON INJ 2 MG/ML 2 ML VIAL IV STA (23:58)
[2022-05-04 00:33] LABS: Alanine Aminotransferase 78 U/L (7-52); Albumin Globulin Ratio 1.6 (0.9-2); Albumin Level 4.3 gm/dl (3.4-5.0); Alkaline Phosphatase 99 U/L (34-104); Anion Gap 9 (3-11); BUN Creatinine Ratio 34.1 (10-20); Bilirubin,Total 0.8 mg/dl (0.2-1.0); Blood Urea Nitrogen 15 mg/dl (6-23); Calcium 9.8 mg/dl (8.5-10.1); Carbon Dioxide 25 mmol/L (21-32); Chloride 103 mmol/L (98-107); Est GFR (African American) 142.9 ml/min; Est GFR (Non-African American) 123.3 ml/min; Globulin 2.7 gm/dl (2.5-4.0); Glucose 156 mg/dl (70-99(Fasting)); Sodium 137 mmol/L (136-145)
[2022-05-04 00:44] LABS: Basophils # (auto) 0.04 K/uL (0-0.2); Basophils % (auto) 0.3 %; Eosinophils # (auto) 0.12 K/uL (0-0.50); Eosinophils % (auto) 0.8 %; Hematocrit (blood only) 54.9 % (40.1-51.0); Hemoglobin 18.8 g/dl (14.0-18.0); Immature Granulocytes # (auto) 0.08 K/uL (0.00-0.02); Immature Granulocytes % (auto) 0.5 %; Lymphocytes # (auto) 2.51 K/uL (1.2-3.4); Mean Corpuscular Hemoglobin 29.4 pg (25.0-34.0); Mean Corpuscular Hgb Conc 34.2 g/dL (32.0-36.0); Mean Corpuscular Volume 85.8 fL (80.0-100.0); Mean Platelet Volume 10.9 fL (9.4-12.4); Monocytes # (auto) 1.61 K/uL (0.24-0.82); Monocytes % (auto) 10.3 %; Neutrophils # (auto) 11.28 K/uL (1.4-6.5); Neutrophils % (auto) 72.1 %; Platelet Count 280 K/uL (130-400); RDW Standard Deviation 42.1 fL (36.4-46.3); White Blood Count 15.64 K/ul (4.8-10.8)
[2022-05-04 01:10] LABS: Potassium 3.8 mmol/L (3.5-5.1)
[2022-05-04 01:34] LABS: Appearance Urine Clear (Clear); Bilirubin Urine Negative (Negative); Blood Urine Negative (Negative); Color Urine Yellow; Glucose Urine UA Negative (Negative); Ketones Urine Trace (Negative); Leukocyte Esterase Urine Negative (Negative); Nitrite Urine Negative (Negative); Protein Urine Negative (Negative); Specific Gravity Urine 1.016 (1.000-1.030); Urobilinogen Urine Negative (Negative); pH Urine 6.5 (4.5-7.5)
--- NOTE | 2022-05-04 02:06 | History & Physical Report ---
Date of Service May 04, 2022 Assessment & Plan (1) Burst fracture of lumbar vertebra: Plan: 61-year-old male with history of polymyositisdermatomyositis on chronic steroids, type 1 diabetes, hypertension and hyperlipidemia with recent hospitalization at [facility] from 04/28/2022 through 05/02/2022 following a ground-level fall in the shower resulting in an L1 burst fracture. Patient was managed conservatively with pain control as well as TLSO brace and was discharged home on 05/02/2022. He has had worsening back pain and difficulty with ambulation since returning home therefore, he returns to the hospital requesting placement at rehab. No falls since returning home. No fevers, chills. No neurological deficits Management of back pain with scheduled Tylenol 1 g p.o. 3 times daily Lidoderm patch Topical diclofenac gel Morphine as needed per pain scale Continue home gabapentin 300 mg p.o. twice daily Continue home duloxetine 60 mg p.o. every afternoon Continue home calcitonin spray Heat as needed for comfort Patient may continue to wear his TLSO brace while out of bed (2) Constipation: Plan: Patient reports constipation since his hospitalization. He is passing flatus. Denies abdominal pain Dulcolax 10 mg NE daily as needed Magnesium hydroxide as needed MiraLAX as needed Senna 8.6 mg p.o. daily Gentle hydration Check magnesium and phosphorus x1 and replete as needed (3) Type 1 diabetes mellitus on insulin therapy: Plan: Chronic. Last hemoglobin A1c = 6.1% in March. Patient had some a.m. hypoglycemia during his last hospital stay Lantus 35 units nightly Insulin sliding scale Glycemic management consultation appreciated (4) Cellulitis: Plan: Patient was treated for a lower extremity cellulitis during his hospital stay. He was discharged on Keflex and doxycycline to continue through May 05. We will continue Keflex 500 mg p.o. 3 times daily through 05/05/2022 Continue doxycycline 100 mg p.o. twice daily through 05/05/2022 (5) Hypercholesterolemia: Plan: Chronic. Patient is statin intolerant Continue Zetia 10 mg p.o. daily (6) Hypertension: Plan: Blood pressure mildly elevated at present, 167/85 Pain control Continue lisinopril 5 mg p.o. every morning Continue to monitor (7) Polymyositis-dermatomyositis: Plan: Patient on chronic longstanding steroids. Presently on prednisone 17 mg p.o. daily. His steroids were briefly increased during his hospital stay. Patient follows with [facility] rheumatology Prednisone 20 mg daily x2 days then resume patient's prednisone at 17 mg p.o. daily Continue home taper as instructed History of Present Illness Chief Complaint: Back pain Primary Care Provider: Micheal Hathaway, III, ADRIÁN Edmundo Rodrigues is a 61-year-old male with history of polymyositisdermatomyositis, chronic muscle weakness, type 1 diabetes, hypertension and hyperlipidemia presenting with acute back pain. Patient was recently admitted to [facility] from 04/28/2022 through 05/02/2022 after falling in the shower and sustaining an L1 burst fracture. CT of the lumbar spine 04/28/2022 with L1 burst fracture, minimal loss of height and no retropulsion of fragments. Patient was evaluated by the [facility] service and had a TLSO brace placed. He was manag ed with Tylenol, hydrocodone as well as intranasal calcitonin. Patient is on chronic steroids for his dermatomyositis and has been slow tapering on an outpatient basis. His steroids were slightly increased during his hospital stay. Patient also treated for cellulitis of the right lower extremity with ceftriaxone and doxycycline and was discharged home to complete his course of Keflex and Doxylast day is to be 05/05/2022. Patient was considering rehab on discharge however opted to go home. Since returning home he reports progressive pain in his low back, now sharp in nature. He has had difficulty ambulating. He denies radiation into the buttocks or legs, no worsening urinary retention. He has been constipated since his hospital stay. Allergies Allergy/AdvReac Type Severity Reaction Status Date / Time mercaptopurine AdvReac Severe JAUNDICE Verified 05/03/22 23:10 Home Medications Medication Instructions Recorded Confirmed Type multivitamin (Daily Multi-Vitamin 1 tab PO QAM 03/04/19 05/03/22 History tablet) blood sugar diagnostic (OneTouch #10 ea 04/01/19 05/03/22 History Ultra Blue Test Strip) vedolizumab 300 mg intravenous 300 mg IV Q8WK 04/01/19 05/03/22 History solution diphenoxylate-atropine 2.5 1 tab PO QID PRN diarrhea #360 tabs 07/20/19 05/03/22 Rx mg-0.025 mg tablet CPAP Supplies #1 ea 10/08/19 05/03/22 Rx duloxetine 60 mg capsule,delayed 60 mg PO QPM 03/01/20 05/03/22 History release flash glucose scanning reader #1 ea 06/21/20 05/03/22 Rx (FreeStyle [place] 14 Day [place]) prednisone 5 mg tablet 10 mg PO QAM #90 tabs 05/19/21 05/03/22 History trazodone 100 mg tablet 100 mg PO HS #90 tabs 05/22/21 05/03/22 Rx insulin aspart See Rx Instructions subcut 08/07/21 05/03/22 Rx (niacinamide)(U-100) 100 unit/mL(3 .COMPLEX 90 days #100 mL mL) subcutaneous pen (Fiasp FlexTouch U-100 Insulin) lisinopril 5 mg tablet 5 mg PO QAM #90 tabs 11/06/21 05/03/22 Rx flash glucose sensor (FreeStyle #2 ea 12/12/21 05/03/22 Rx [place] 14 Day Sensor kit) zolpidem 12.5 mg tablet,extended 12.5 mg PO HS PRN insomnia #30 tabs 02/13/22 05/03/22 Rx release,multiphase pen needle, diabetic 32 gauge x #500 ea 03/12/22 05/03/22 Rx 5/32" (BD Ultra-Fine Marsha Pen Needle) gabapentin 300 mg capsule 300 mg PO BID #180 caps 03/15/22 05/03/22 Rx ezetimibe 10 mg tablet 10 mg PO DAILY 04/28/22 05/03/22 History hydrocodone 5 mg-acetaminophen 325 1 tab PO Q6H PRN Pain 04/28/22 05/03/22 History mg tablet insulin glargine 100 unit/mL (3 65 unit subcut QPM 04/28/22 05/03/22 History mL) subcutaneous pen (Basaglar KwikPen U-100 Insulin) acetaminophen 500 mg tablet 1,000 mg PO TID #30 tabs 05/02/22 05/03/22 Rx (Tylenol Extra Strength) calcitonin (salmon) 200 1 spray NA DAILY #3.7 mL 05/02/22 05/03/22 Rx unit/actuation nasal spray cephalexin 500 mg capsule 500 mg PO TID 3 days #9 caps 05/02/22 05/03/22 Rx cyanocobalamin (vitamin B-12) 1,000 mcg PO DAILY #30 tabs 05/02/22 05/03/22 Rx 1,000 mcg tablet diclofenac sodium 1 % topical gel 4 g EXT QID PRN joint pain #100 05/02/22 05/03/22 Rx (Voltaren Arthritis Pain) grams doxycycline hyclate 100 mg capsule 100 mg PO BID 3 days #6 caps 05/02/22 05/03/22 Rx lidocaine 5 % topical patch 1 patch transdermal QAM #30 ea 05/02/22 05/03/22 Rx tamsulosin 0.4 mg capsule 0.4 mg PO HS #14 caps 05/02/22 05/03/22 Rx Past Med/Surg History Medical History Chronic back pain Chronic steroid use Crohn's disease Diverticulosis Dysfunction of right eustachian tube Elevated hemoglobin A1c History of intestinal obstruction History of migraine HLD (hyperlipidemia) HTN (hypertension) Inclusion body myositis Follows with [facility] Rheumatology Mixed conductive and sensorineural hearing loss of right ear with restricted hearing of left ear Osteoarthritis Polymyositis-dermatomyositis Sleep apnea CPAP Statin myopathy Type 1 diabetes mellitus on insulin therapy Wheelchair bound Surgical History History of biopsy muscle History of cholecystectomy History of colonoscopy History of esophagogastroduodenoscopy (EGD) History of incision and drainage (2016) I&D of sebaceous cyst right upper back History of intestinal surgery History of surgery (2017) epidermal cyst excision History of wisdom tooth extraction Family History Unknown Breast cancer Father Diabetes Father Hearing loss Stroke Mother Hypertension Cancer Heart disease Other Allergies No family history of adverse response to anesthesia No family history of bleeding disorder Denies family history of Ovarian cancer Prostate cancer Myocardial infarction Colorectal cancer Social History Smoking Status: Former smoker Tobacco Type: Cigarettes Age Started Using Tobacco: 14; Age Quit Using Tobacco: 17; Second Hand Exposure: No; Hx Alcohol Use: No Hx Substance Use: No Preferred Language: [place] Communication Ability: Effective Visual Impairment: No Limitations Hearing Ability: Normal [place] Required: No Beliefs That Will Affect Care: None marital status: Current Living Situation: Spouse current occupational status: employed current occupation: security How many Children do You have: 1 Feels Safe at Home: Yes Childhood Exposure to Second-Hand Smoke: Yes Diet Comment: regular caffeine: Yes during the past year weight has: remained stable Dental Care, Regularly: Yes Physical Activity Frequency: Does not Exercise Seatbelt Use: always Sunscreen Use: Yes Assistive Devices: CPAP, Raised Toilet Seat, Scooter/Electric Scooter, Stair Lift and Walker Review of Systems Review of Systems: All systems reviewed & are unremarkable except as noted in HPI & below Physical Exam Physical Exam: General: patient in mild discomfort, NAD, non-toxic in appearance, AA&O x 4 Skin: warm, dry, thickened skin on bilateral lower extremities, no obvious cellulitis HEENT: NC/AT, PERRL, EOMI, anicteric sclera, conjunctiva without injection, external ear normal to inspection and nontender, nares patent, moist mucus membranes, dentition intact, no oropharyngeal lesions, neck supple, trachea midline, no LAD, no thyromegaly, no JVD Heart: +S1/S2, regular, no m/r/g Lungs: equal air entry bilaterally, no rales/rhonchi/wheezes Abd: +BS, soft, NT, mildly distended, no masses/organomegaly/ascites Ext: warm, 2+ pulses in UE/LE bilaterally, no clubbing/cyanosis or edema Neuro: Awake alert and oriented x4, speech intact, no facial droop, proximal muscle weakness of shoulders and hips, bilateral foot drop Results & Data Results & Data ([facility]) Vital Signs (Past 12 Hours) Vital Signs Temp Pulse Pulse Resp BP BP Pulse Ox 05/04/22 02:05 73 16 149/89 H 96 05/04/22 01:15 72 20 160/92 H 96 05/04/22 00:21 70 16 162/94 H 97 05/03/22 21:08 36.5 C 90 18 176/101 H 96 O2 Del Method 05/04/22 02:05 05/04/22 01:15 Room Air 05/04/22 00:21 Room Air 05/03/22 21:08 Room Air Laboratory Results Laboratory Results WBC 15.64 K/ul (4.8-10.8) H 05/03/22 23:04 RBC 6.40 M/uL (4.63-6.08) H 05/03/22 23:04 Hgb 18.8 g/dl (14.0-18.0) H D 05/03/22 23:04 Hct 54.9 % (40.1-51.0) H 05/03/22 23:04 MCV 85.8 fL (80.0-100.0) 05/03/22 23:04 MCH 29.4 pg (25.0-34.0) 05/03/22 23:04 MCHC 34.2 g/dL (32.0-36.0) 05/03/22 23:04 RDW Std Deviation 42.1 fL (36.4-46.3) 05/03/22 23:04 RDW Coeff of Amy 14.0 % (11.5-14.5) 05/03/22 23:04 Plt Count 280 K/uL (130-400) 05/03/22 23:04 MPV 10.9 fL (9.4-12.4) 05/03/22 23:04 Immature Gran % (Auto) 0.5 % 05/03/22 23:04 Neut % (Auto) 72.1 % 05/03/22 23:04 Lymph % (Auto) 16.0 % 05/03/22 23:04 [place] % (Auto) 10.3 % 05/03/22 23:04 Eos % (Auto) 0.8 % 05/03/22 23:04 Baso % (Auto) 0.3 % 05/03/22 23:04 Neut # (Auto) 11.28 K/uL (1.4-6.5) H 05/03/22 23:04 Lymph # (Auto) 2.51 K/uL (1.2-3.4) 05/03/22 23:04 [place] # (Auto) 1.61 K/uL (0.24-0.82) H 05/03/22 23:04 Eos # (Auto) 0.12 K/uL (0-0.50) 05/03/22 23:04 Baso # (Auto) 0.04 K/uL (0-0.2) 05/03/22 23:04 Immature Gran # (Auto) 0.08 K/uL (0.00-0.02) H 05/03/22 23:04 Sodium 137 mmol/L (136-145) 05/03/22 23:04 Potassium 3.8 mmol/L (3.5-5.1) 05/04/22 00:41 Chloride 103 mmol/L (98-107) 05/03/22 23:04 Carbon Dioxide 25 mmol/L (21-32) 05/03/22 23:04 Anion Gap 9 (3-11) 05/03/22 23:04 BUN 15 mg/dl (6-23) 05/03/22 23:04 Creatinine 0.44 mg/dl (0.6-1.4) L 05/03/22 23:04 Est Cr Clr Drug Dosing Not Reportable 05/03/22 23:04 Est GFR ( Amer) 142.9 ml/min 05/03/22 23:04 Est GFR (Non-Af Amer) 123.3 ml/min 05/03/22 23:04 BUN/Creatinine Ratio 34.1 (10-20) H 05/03/22 23:04 Glucose 156 mg/dl (70-99(Fasting)) H 05/03/22 23:04 Calcium 9.8 mg/dl (8.5-10.1) 05/03/22 23:04 Total Bilirubin 0.8 mg/dl (0.2-1.0) 05/03/22 23:04 AST 35 U/L (13-39) 05/04/22 00:41 ALT 78 U/L (7-52) H 05/03/22 23:04 Alkaline Phosphatase 99 U/L (34-104) 05/03/22 23:04 Total Protein 7.0 gm/dl (6.0-8.3) 05/03/22 23:04 Albumin 4.3 gm/dl (3.4-5.0) 05/03/22 23:04 Globulin 2.7 gm/dl (2.5-4.0) 05/03/22 23:04 Albumin/Globulin Ratio 1.6 (0.9-2) 05/03/22 23:04 Urine Color Yellow 05/04/22 00:49 Urine Appearance Clear (Clear) 05/04/22 00:49 Urine pH 6.5 (4.5-7.5) 05/04/22 00:49 Ur Specific [place] 1.016 (1.000-1.030) 05/04/22 00:49 Urine Protein Negative (Negative) 05/04/22 00:49 Urine Glucose (UA) Negative (Negative) 05/04/22 00:49 Urine Ketones Trace (Negative) H 05/04/22 00:49 Urine Blood Negative (Negative) 05/04/22 00:49 Urine Nitrite Negative (Negative) 05/04/22 00:49 Urine Bilirubin Negative (Negative) 05/04/22 00:49 Urine Urobilinogen Negative (Negative) 05/04/22 00:49 Ur Leukocyte Esterase Negative (Negative) 05/04/22 00:49 SARS-CoV-2, RNA, NAAT NEGATIVE (NEGATIVE) 05/04/22 01:15 PG Care Time/CCT Total # of Minutes Spent Total Time Spent with Patient: Total time spent is greater than 50% in coordination of care (as documented) at patient's floor/unit and/or counseling patient: Coding Level of Care Code 10335 Initial Inpt Care Lvl 3 Diagnoses Burst fracture of lumbar vertebra S32.001A Constipation K59.00 Type 1 diabetes mellitus on insulin therapy E10.9 Cellulitis L03.90 Hypercholesterolemia E78.00 Hypertension I10 Polymyositis-dermatomyositis M33.90
[2022-05-04] MEDS ORDERED: MAGNESIUM HYDROXIDE SUSP 30 ML UDC PO PRN (03:17)
[2022-05-04] MEDS ORDERED: MoRPHine SULFATE 2 MG/ML CARP IV PRN (03:17)
[2022-05-04] MEDS ORDERED: GLUCOSE 10 TAB/TUBE PO PRN (03:17)
[2022-05-04] MEDS ORDERED: DICLOFENAC SOD 1% GEL 100 GM TUBE EXT PRN (03:17)
[2022-05-04] MEDS ORDERED: PHARMACY GLYCEMIC MGMT CONSULT PRN (03:17)
[2022-05-04] MEDS ORDERED: bisacodyL 10 MG SUPP PR PRN (03:17)
[2022-05-04] MEDS ORDERED: GLUCAGON FOR INJ 1 MG VIAL SQ PRN (03:17)
[2022-05-04] MEDS ORDERED: DEXTROSE 50% 50 ML SYRINGE IV PRN (03:17)
[2022-05-04] MEDS ORDERED: MoRPHine SULFATE 4 MG/ML 1 ML CARP\\VIAL IV PRN (03:17)
[2022-05-04] MEDS ORDERED: CARBOHYDRATES FOR HYPOGLYCEMIA PO PRN (03:17)
[2022-05-04] MEDS ORDERED: GLUCOSE 40% GEL 15 GM TUBE PO PRN (03:17)
[2022-05-04] MEDS ORDERED: Patient's HEIGHT &/or WEIGHT Needed SCH (03:45)
[2022-05-04] MEDS ORDERED: LANTUS PER UNIT CHARGE SQ ONE (04:00)
[2022-05-04] MEDS ORDERED: HYDROmorphone INJ 0.5 MG/0.5 ML SYR IV STA (04:37)
[2022-05-04 04:38] LABS: Magnesium 1.9 mg/dl (1.7-2.4); Phosphorus 3.9 mg/dl (2.5-4.9)
--- NOTE | 2022-05-04 06:12 | Emergency Department Note ---
Impression & Plan Intractable [facility] Provider Note NAME: GAL MEADE AGE: 61 SEX: M ARRIVES VIA: Walk-In INFORMANT: Patient and his ED PROVIDER(S): Miryam Ribera DO CHIEF COMPLAINT: Back pain PLAN: Disposition: [facility] Condition: Fair MEDICAL DECISION MAKING: This is a 61-year-old male patient with an extensive past medical history who presents emergency department with intractable low back pain. Patient was just discharged in the hospital yesterday after admission for an L1 fracture following a fall. He had been trying to take hydrocodone at home but was unable to bear the pain. The patient has significant generalized weakness and at times urinary retention. He was treated with IV analgesia here in the emergency department and will consider discharge into a rehab facility as he had refused this during his discharge process yesterday. I [facility] the [facility] and they will evaluate the patient for further inpatient care Triage Nursing notes reviewed and agree with them. Additional history obtained from the patient's is at the bedside Prior medical records reviewed Vital Signs: reviewed and remarkable for mild hypertension Differential diagnosis: Dehydration, generalized weakness, intractable pain from orthopedic injury ER treatment provided: IV Dilaudid IV Zofran Diagnostics interpreted by me: Laboratory studies: See below HPI: 61/M arrives for evaluation of low back pain. The patient was just discharged from the hospital yesterday after he was admitted to the hospital following a fall last Saturday. Patient thought that he be able to do well at home on hydrocodone to manage the pain from his L1 fracture but he explains that he is not able to take care of himself or manage the pain and believes that he will need to go to [facility]. ROS: See above HPI for pertinent positives & negatives. A total of 10 systems reviewed and were otherwise negative. PAST MEDICAL HISTORY:See Below PAST SURGICAL HISTORY:See Below FAMILY HISTORY:See Below SOCIAL HISTORY:See Below HOME MEDICATIONS:See list ALLERGIES:See list VITALS:See Below PHYSICAL EXAMINATION: HEENT: Head - normocephalic and atraumatic. Pupils are equal, round, and reactive to light. Extraocular eye muscles are intact, and sclera are anicteric. Nose - moist nasal mucosa without discharge. Mouth - moist buccal mucosa. Oropharynx is nonerythematous and there is no tonsillar exudate or idris a noted. Neck: Supple; no cervical lymphadenopathy Heart: Regular rate and rhythm. There is a normal S1 and S2 with no murmurs, clicks, or gallops appreciated. Lungs: Clear to auscultation bilaterally with no wheezes, rales, or rhonchi. Abdomen: Soft, completely nontender, nondistended, with good bowel sounds. There are no palpable pulsatile masses or hepatosplenomegaly. There is no guarding, rigidity, or rebound noted. Extremities: No evidence of cyanosis, clubbing, or edema. There are easily palpable peripheral pulses. Skin: warm and dry with good turgor and no rashes. Back: Patient had reproducible discomfort with palpation over the paraspinous muscles of the upper lumbar spine. ED COURSE: Times/Reassessments: 2350: Patient was evaluated in room B3. Previous electronic medical records were reviewed. An IV lock was initiated and labs are drawn as above. Nursing staff were able to help the patient to the bathroom to urinate. The patient was given IV Dilaudid and Zofran for his pain. Miryam Ribera DO Past Med/Surg History Medical History Chronic back pain Chronic steroid use Crohn's disease Diverticulosis Dysfunction of right eustachian tube Elevated hemoglobin A1c History of intestinal obstruction History of migraine HLD (hyperlipidemia) HTN (hypertension) Inclusion body myositis Follows with [facility]ology Mixed conductive and sensorineural hearing loss of right ear with restricted hearing of left ear Osteoarthritis Polymyositis-dermatomyositis Sleep apnea CPAP Statin myopathy Type 1 diabetes mellitus on insulin therapy Wheelchair bound Surgical History History of biopsy muscle History of cholecystectomy History of colonoscopy History of esophagogastroduodenoscopy (EGD) History of incision and drainage (2017) I&D of sebaceous cyst right upper back History of intestinal surgery History of surgery (2017) epidermal cyst excision History of wisdom tooth extraction Family History Unknown Breast cancer Father Diabetes Father Hearing loss Stroke Mother Hypertension Cancer Heart disease Other Allergies No family history of adverse response to anesthesia No family history of bleeding disorder Denies family history of Ovarian cancer Prostate cancer Myocardial infarction Colorectal cancer Social History Smoking Status: Former smoker Tobacco Type: Cigarettes Age Started Using Tobacco: 14; Age Quit Using Tobacco: 17; Second Hand Exposure: No; Hx Alcohol Use: No Hx Substance Use: No Preferred Language: Indonesian Communication Ability: Effective Visual Impairment: No Limitations Hearing Ability: Normal Boardmarker Required: No Beliefs That Will Affect Care: None marital status: Current Living Situation: Spouse current occupational status: employed current occupation: security How many Children do You have: 1 Feels Safe at Home: Yes Childhood Exposure to Second-Hand Smoke: Yes Diet Comment: regular caffeine: Yes during the past year weight has: remained stable Dental Care, Regularly: Yes Physical Activity Frequency: Does not Exercise Seatbelt Use: always Sunscreen Use: Yes Assistive Devices: CPAP, Walker and Wheelchair Allergies Allergies Allergy/AdvReac Type Severity Reaction Status Date / Time mercaptopurine AdvReac Severe JAUNDICE Verified 05/03/22 23:10 Home Meds Home Medications Medication Instructions Recorded Confirmed multivitamin (Daily Multi-Vitamin 1 tab PO QAM 03/04/19 05/03/22 tablet) blood sugar diagnostic (OneTouch #10 ea 04/01/19 05/03/22 Ultra Blue Test Strip) vedolizumab 300 mg intravenous 300 mg IV Q8WK 04/01/19 05/03/22 solution duloxetine 60 mg capsule,delayed 60 mg PO QPM 03/01/20 05/03/22 release prednisone 5 mg tablet 10 mg PO QAM #90 tabs 05/19/21 05/03/22 ezetimibe 10 mg tablet 10 mg PO DAILY 04/28/22 05/03/22 hydrocodone 5 mg-acetaminophen 325 1 tab PO Q6H PRN Pain 04/28/22 05/03/22 mg tablet insulin glargine 100 unit/mL (3 65 unit subcut QPM 04/28/22 05/03/22 mL) subcutaneous pen (Basaglar KwikPen U-100 Insulin) Previous Rx's Medication Instructions Recorded diphenoxylate-atropine 2.5 1 tab PO QID PRN diarrhea #360 tabs 07/20/19 mg-0.025 mg tablet CPAP Supplies #1 ea 10/08/19 flash glucose scanning reader #1 ea 06/21/20 (FreeStyle [place] 14 Day [place]) trazodone 100 mg tablet 100 mg PO HS #90 tabs 05/22/21 insulin aspart See Rx Instructions subcut 08/07/21 (niacinamide)(U-100) 100 unit/mL(3 .COMPLEX 90 days #100 mL mL) subcutaneous pen (Fiasp FlexTouch U-100 Insulin) lisinopril 5 mg tablet 5 mg PO QAM #90 tabs 11/06/21 flash glucose sensor (FreeStyle #2 ea 12/12/21 [place] 14 Day Sensor kit) zolpidem 12.5 mg tablet,extended 12.5 mg PO HS PRN insomnia #30 tabs 02/13/22 release,multiphase pen needle, diabetic 32 gauge x #500 ea 03/12/22" (BD Ultra-Fine Marsha Pen Needle) gabapentin 300 mg capsule 300 mg PO BID #180 caps 03/15/22 acetaminophen 500 mg tablet 1,000 mg PO TID #30 tabs 05/02/22 (Tylenol Extra Strength) calcitonin (salmon) 200 1 spray NA DAILY #3.7 mL 05/02/22 unit/actuation nasal spray cephalexin 500 mg capsule 500 mg PO TID 3 days #9 caps 05/02/22 cyanocobalamin (vitamin B-12) 1,000 mcg PO DAILY #30 tabs 05/02/22 1,000 mcg tablet diclofenac sodium 1 % topical gel 4 g EXT QID PRN joint pain #100 05/02/22 (Voltaren Arthritis Pain) grams doxycycline hyclate 100 mg capsule 100 mg PO BID 3 days #6 caps 05/02/22 lidocaine 5 % topical patch 1 patch transdermal QAM #30 ea 05/02/22 tamsulosin 0.4 mg capsule 0.4 mg PO HS #14 caps 05/02/22 Results & Data (ED) Vital Signs Vital Signs - 24 hr 05/03/22 21:08 05/04/22 00:21 05/04/22 01:15 Temperature 36.5 C Temperature Source Temporal Artery Scan Pulse Rate 90 Pulse Rate [Right Finger] 70 72 Respiratory Rate 18 16 20 Respiratory Depth Normal Blood Pressure 176/101 H Blood Pressure [Right Arm] 162/94 H 160/92 H Blood Pressure Mean 126 Blood Pressure Mean [Right Arm] 116 114 Pulse Oximetry 96 97 96 Oxygen Delivery Method Room Air Room Air Room Air Sepsis New/Unexplained Change in Mental Status N/A Sepsis Action Taken by Nursing No Action Required Laboratory Data Result diagrams: 05/05/22 07:18 05/04/22 00:41 Lab Results 05/03/22 05/03/22 05/04/22 Range/Units 23:04 23:04 00:41 WBC 15.64 H (4.8-10.8) K/ul RBC 6.40 H (4.63-6.08) M/uL Hgb 18.8 H D (14.0-18.0) g/dl Hct 54.9 H (40.1-51.0) % MCV 85.8 (80.0-100.0) fL MCH 29.4 (25.0-34.0) pg MCHC 34.2 (32.0-36.0) g/dL RDW Std Deviation 42.1 (36.4-46.3) fL RDW Coeff of Amy 14.0 (11.5-14.5) % Plt Count 280 (130-400) K/uL MPV 10.9 (9.4-12.4) fL Immature Gran % (Auto) 0.5 % Neut % (Auto) 72.1 % Lymph % (Auto) 16.0 % [place] % (Auto) 10.3 % Eos % (Auto) 0.8 % Baso % (Auto) 0.3 % Neut # (Auto) 11.28 H (1.4-6.5) K/uL Lymph # (Auto) 2.51 (1.2-3.4) K/uL [place] # (Auto) 1.61 H (0.24-0.82) K/uL Eos # (Auto) 0.12 (0-0.50) K/uL Baso # (Auto) 0.04 (0-0.2) K/uL Immature Gran # (Auto) 0.08 H (0.00-0.02) K/uL Sodium 137 (136-145) mmol/L Potassium TNP 3.8 Chloride 103 (98-107) mmol/L Carbon Dioxide 25 (21-32) mmol/L Anion Gap 9 (3-11) BUN 15 (6-23) mg/dl Creatinine 0.44 L (0.6-1.4) mg/dl Est Cr Clr Drug Dosing Not Reportable Est GFR ( Amer) 142.9 ml/min Est GFR (Non-Af Amer) 123.3 ml/min BUN/Creatinine Ratio 34.1 H (10-20) Glucose 156 H (70-99(Fasting)) mg/dl Calcium 9.8 (8.5-10.1) mg/dl Phosphorus (2.5-4.9) mg/dl Magnesium (1.7-2.4) mg/dl Total Bilirubin 0.8 (0.2-1.0) mg/dl AST TNP 35 ALT 78 H (7-52) U/L Alkaline Phosphatase 99 (34-104) U/L Total Protein 7.0 (6.0-8.3) gm/dl Albumin 4.3 (3.4-5.0) gm/dl Globulin 2.7 (2.5-4.0) gm/dl Albumin/Globulin Ratio 1.6 (0.9-2) Urine Color Urine Appearance (Clear) Urine pH (4.5-7.5) Ur Specific [place] (1.000-1.030) Urine Protein (Negative) Urine Glucose (UA) (Negative) Urine Ketones (Negative) Urine Blood (Negative) Urine Nitrite (Negative) Urine Bilirubin (Negative) Urine Urobilinogen (Negative) Ur Leukocyte Esterase (Negative) SARS-CoV-2, RNA, NAAT (NEGATIVE) 05/04/22 05/04/22 05/04/22 Range/Units 00:41 00:49 01:15 WBC (4.8-10.8) K/ul RBC (4.63-6.08) M/uL Hgb (14.0-18.0) g/dl Hct (40.1-51.0) % MCV (80.0-100.0) fL MCH (25.0-34.0) pg MCHC (32.0-36.0) g/dL RDW Std Deviation (36.4-46.3) fL RDW Coeff of Amy (11.5-14.5) % Plt Count (130-400) K/uL MPV (9.4-12.4) fL Immature Gran % (Auto) % Neut % (Auto) % Lymph % (Auto) % [place] % (Auto) % Eos % (Auto) % Baso % (Auto) % Neut # (Auto) (1.4-6.5) K/uL Lymph # (Auto) (1.2-3.4) K/uL [place] # (Auto) (0.24-0.82) K/uL Eos # (Auto) (0-0.50) K/uL Baso # (Auto) (0-0.2) K/uL Immature Gran # (Auto) (0.00-0.02) K/uL Sodium (136-145) mmol/L Potassium Chloride (98-107) mmol/L Carbon Dioxide (21-32) mmol/L Anion Gap (3-11) BUN (6-23) mg/dl Creatinine (0.6-1.4) mg/dl Est Cr Clr Drug Dosing Est GFR ( Amer) ml/min Est GFR (Non-Af Amer) ml/min BUN/Creatinine Ratio (10-20) Glucose (70-99(Fasting)) mg/dl Calcium (8.5-10.1) mg/dl Phosphorus 3.9 (2.5-4.9) mg/dl Magnesium 1.9 (1.7-2.4) mg/dl Total Bilirubin (0.2-1.0) mg/dl AST ALT (7-52) U/L Alkaline Phosphatase (34-104) U/L Total Protein (6.0-8.3) gm/dl Albumin (3.4-5.0) gm/dl Globulin (2.5-4.0) gm/dl Albumin/Globulin Ratio (0.9-2) Urine Color Yellow Urine Appearance Clear (Clear) Urine pH 6.5 (4.5-7.5) Ur Specific [place] 1.016 (1.000-1.030) Urine Protein Negative (Negative) Urine Glucose (UA) Negative (Negative) Urine Ketones Trace H (Negative) Urine Blood Negative (Negative) Urine Nitrite Negative (Negative) Urine Bilirubin Negative (Negative) Urine Urobilinogen Negative (Negative) Ur Leukocyte Esterase Negative (Negative) SARS-CoV-2, RNA, NAAT NEGATIVE (NEGATIVE) Administered Medications Acetaminophen (Acetaminophen 500 Mg Tab) 1,000 mg PO TID WAQAR Stop: 06/03/22 08:59 Last Admin: 05/04/22 20:27 Dose: 1,000 mg Documented By: Admin: 05/04/22 15:04 Dose: 1,000 mg Documented By: Admin: 05/04/22 08:35 Dose: 1,000 mg Documented By: ORTEGA Calcitonin Haddock (Calcitonin Haddock Na 200 Iu/Ac 3.7 Ml Btl) 1 sprays NA DAILY WAQAR Stop: 06/03/22 08:59 Last Admin: 05/04/22 08:36 Dose: 1 sprays Documented By: ORTEGA Cephalexin HCl (Cephalexin 500 Mg Cap) 500 mg PO TID WAQAR Stop: 05/06/22 08:59 Last Admin: 05/04/22 20:28 Dose: 500 mg Documented By: Admin: 05/04/22 15:04 Dose: 500 mg Documented By: Admin: 05/04/22 08:35 Dose: 500 mg Documented By: ORTEGA Diclofenac Sodium (Diclofenac Sod 1% Gel 100 Gm Tube) 4 gm EXT QID PRN; Protocol PRN Reason: joint pain/back Stop: 06/03/22 03:16 Last Admin: 05/04/22 04:29 Dose: 4 gm Documented By: Doxycycline Hyclate (Doxycycline Hyclate 100 Mg Cap) 100 mg PO BID WAQAR Stop: 05/06/22 08:59 Last Admin: 05/04/22 20:28 Dose: 100 mg Documented By: Admin: 05/04/22 08:35 Dose: 100 mg Documented By: ORTEGA Duloxetine HCl (Duloxetine Hcl 60 Mg Cap) 60 mg PO QPM WAQAR Stop: 06/03/22 20:59 Last Admin: 05/04/22 20:28 Dose: 60 mg Documented By: GRETEL Ezetimibe (Ezetimibe 10 Mg Tablet) 10 mg PO DAILY WAQAR Stop: 06/03/22 08:59 Last Admin: 05/04/22 08:36 Dose: 10 mg Documented By: ORTEGA Gabapentin (Gabapentin 300 Mg Cap) 300 mg PO BID WAQAR Stop: 06/03/22 08:59 Last Admin: 05/04/22 20:28 Dose: 300 mg Documented By: Admin: 05/04/22 08:36 Dose: 300 mg Documented By: ORTEGA Hydromorphone HCl (Hydromorphone Inj 0.5 Mg/0.5 Ml Syr) 0.5 mg IV Q6H PRN PRN Reason: moderate-severe Pain Stop: 05/18/22 07:53 Last Admin: 05/05/22 03:19 Dose: 0.5 mg Documented By: Admin: 05/04/22 21:18 Dose: 0.5 mg Documented By: Admin: 05/04/22 14:37 Dose: 0.5 mg Documented By: Admin: 05/04/22 08:31 Dose: 0.5 mg Documented By: ORTEGA Insulin Aspart (Insulin Aspart Per Unit) 0 units SC ACHS [facility] Stop: 06/03/22 07:29 Last Admin: 05/04/22 21:16 Dose: 3 units Documented By: GRETEL Co-signed By: ERICH Admin: 05/04/22 18:04 Dose: 10 units Documented By: ORTEGA Co-signed By: WELLINGTON Admin: 05/04/22 13:05 Dose: 10 units Documented By: ORTEGA Co-signed By: YUMIKO Admin: 05/04/22 08:36 Dose: Not Given Documented By: ORTEGA Insulin Glargine (Lantus Per Unit Charge) 0 units SQ [facility]; Protocol Stop: 06/03/22 20:59 Last Admin: 05/04/22 21:16 Dose: 30 units Documented By: GRETEL Co-signed By: ERICH Lidocaine (Lidocaine 5% 1 Patch) 1 patch TD [facility] Stop: 06/03/22 08:59 Last Admin: 05/04/22 08:34 Dose: 1 patch Documented By: ORTEGA Lisinopril (Lisinopril 5 Mg Tab) 5 mg PO [facility] Stop: 06/03/22 08:59 Last Admin: 05/04/22 08:35 Dose: 5 mg Documented By: ORTEGA Miscellaneous (Remove Lidoderm Patch) 1 each N/A DAILY@2100 [facility] Stop: 06/03/22 20:59 Last Admin: 05/04/22 20:29 Dose: Not Given Documented By: GRETEL Polyethylene Glycol (Polyethylene (Miralax) 17 Gm Pack) 17 gm PO DAILY PRN PRN Reason: Constipation Stop: 06/03/22 03:16 Last Admin: 05/04/22 13:07 Dose: 17 gm Documented By: ORTEGA Sennosides (Senna 8.6 Mg Tab) 8.6 mg PO [facility] Stop: 06/03/22 08:59 Last Admin: 05/04/22 08:35 Dose: 8.6 mg Documented By: ORTEGA Tamsulosin HCl (Tamsulosin Hcl 0.4 Mg Cap) 0.4 mg PO [facility] Stop: 06/03/22 20:59 Last Admin: 05/04/22 20:28 Dose: 0.4 mg Documented By: GRETEL Trazodone HCl (Trazodone Hcl 100 Mg Tab) 100 mg PO [facility] Stop: 06/03/22 20:59 Last Admin: 05/04/22 20:28 Dose: 100 mg Documented By: GRETEL Discontinued Medications Al Hydrox/Mg Hydrox/Simethicone 18 ml/ Lidocaine HCl 6 ml/ [employer]ENTIFIER 1 each 0 ml PO ONE ONE Stop: 05/04/22 11:35 Last Admin: 05/04/22 13:07 Dose: 24 ml Documented By: ORTEGA Hydromorphone HCl (Hydromorphone Inj 1 Mg/Ml Syringe) 1 mg IV NOW STA Stop: 05/03/22 23:59 Last Admin: 05/04/22 00:20 Dose: 1 mg Documented By: DUNCAN Hydromorphone HCl (Hydromorphone Inj 0.5 Mg/0.5 Ml Syr) 0.5 mg IV NOW STA Stop: 05/04/22 04:38 Last Admin: 05/04/22 04:54 Dose: 0.5 mg Documented By: Insulin Aspart (Insulin Aspart Per Unit) 0 units SC 0400 ONE Stop: 05/05/22 04:01 Last Admin: 05/04/22 18:03 Dose: 10 units Documented By: ORTEGA Co-signed By: WELLINGTON Insulin Glargine (Lantus Per Unit Charge) 30 units SQ NOW ONE Stop: 05/04/22 04:01 Last Admin: 05/04/22 04:27 Dose: 30 units Documented By: Co-signed By: RU Miscellaneous (Patient's Height &/Or Weight Needed) 1 each N/A Q2H [facility] Stop: 06/03/22 03:44 Last Admin: 05/04/22 04:27 Dose: 1 each Documented By: Morphine Sulfate (Morphine Sulfate 4 Mg/Ml 1 Ml Carp\\Vial) 3 mg IV Q3H PRN PRN Reason: Pain (6,7,8,9,10) Stop: 05/18/22 03:16 Last Admin: 05/04/22 03:46 Dose: 3 mg Documented By: RU Ondansetron HCl (Ondansetron Inj 2 Mg/Ml 2 Ml Vial) 4 mg IV NOW STA Stop: 05/03/22 23:59 Last Admin: 05/04/22 00:21 Dose: 4 mg Documented By: DUNCAN Prednisone (Prednisone 20 Mg Tab) 20 mg PO TODAY@0900 WAQAR Stop: 05/04/22 09:01 Last Admin: 05/04/22 08:36 Dose: 20 mg Documented By: AMS Discharge Plan Visit Data Chief Complaint: Back Injury/Pain Stated Complaint: BACK PAIN ED Provider: Miryam Ribera Discharge Problem: Intractable back pain Patient Disposition: Admitted As Inpatient Discharge Instructions Interventions: ED Discharge Assessment Last Done: 05/04/22 02:45
[2022-05-04] MEDS: HYDROmorphone INJ 0.5 MG/0.5 ML SYR IV PRN ×3 (08:31→21:18)
[2022-05-04] MEDS: LIDOCAINE 5% 1 PATCH TD SCH (08:34)
[2022-05-04] MEDS: lisinopril 5 MG TAB PO SCH (08:35)
[2022-05-04] MEDS: cephALEXin 500 MG CAP PO SCH ×3 (08:35→20:28)
[2022-05-04] MEDS: SENNA 8.6 MG TAB PO SCH (08:35)
[2022-05-04] MEDS: ACETAMINOPHEN 500 MG TAB PO SCH ×3 (08:35→20:27)
[2022-05-04] MEDS: DOXYCYCLINE HYCLATE 100 MG CAP PO SCH ×2 (08:35→20:28)
[2022-05-04] MEDS: INSULIN ASPART PER UNIT SC SCH ×4 (08:36→21:16)
[2022-05-04] MEDS: EZETIMIBE 10 MG TABLET PO SCH (08:36)
[2022-05-04] MEDS: GABAPENTIN 300 MG CAP PO SCH ×2 (08:36→20:28)
[2022-05-04] MEDS: CALCITONIN SALMON NA 200 IU/AC 3.7 ML BTL SCH (08:36)
[2022-05-04] MEDS ORDERED: predniSONE 20 MG TAB PO SCH (09:00)
[2022-05-04] MEDS ORDERED: predniSONE 5 MG TAB PO SCH (09:00)
--- NOTE | 2022-05-04 10:28 | Pharmacy Report ---
Pharmacy Glycemic Short Note 2 - Date of Service May 04, 2022 - Glycemic Short BSG Results (Last 24 hours): 05/03/22 05/04/22 05/04/22 23:04 04:23 08:08 Glucose 156 H POC Glucose 97 109 H OUTPATIENT ANTIDIABETIC REGIMEN: * Novolog Aspart 38 units at breakfast, 34 units at lunch, 38 units at dinner * Basaglar 65 units QPM ASSESSMENT: * 61 y/o M admitted for increased back pain and difficulty ambulating since being discharged home two days ago from here. Patient would like rehab placement. * He is a Type 1 diabetic, on basal and bolus insulin at home. * Last admission, he required around 45 units of basal and 52 units bolus (on 05/01/22) which resulted in fasting BSG of 80 mg/dl on 05/02/22. * Basal insulin was further reduced to 35 units nightly on discharge. It does not look like he took his basal insulin dose last night due to admission, so basal Lantus 30 units was given early today morning around 4 AM. * Plan to resume nightly basal insulin tonight. Will add a scale of basal insulin at HS tonight based on BSG. * Patient had been on higher dose of Prednisone on his last admission (40 mg then 30 mg). Today Prednisone dose reduced to 20 mg then 17 mg daily tomorrow. * Started with looser Novolog parameters yesterday night compared to last admission. PLAN FOR INPATIENT GLYCEMIC CONTROL: * Basal insulin * Lantus 30 units SQ early today ~4AM * Lantus 20-30 units scale SQ at HS tonight based on BSG (see EMR for details) * Bolus insulin * NovoLog per scale ACHS or Q6hrs while NPO * Goal Range: Low 110 mg/dL - High 150 mg/dL * Correction Factor: 12 mg/dL/unit * Nutritional / Prandial insulin per carb ratio of 1 unit per 4 grams CHO consumed
--- NOTE | 2022-05-04 10:50 | Electrocardiogram Report ---
Test Reason : Blood Pressure : / mmHG Vent. Rate : 063 BPM Atrial Rate : 063 BPM P-R Int : 154 ms QRS Dur : 090 ms QT Int : 422 ms P-R-T Axes : 044 -04 059 degrees QTc Int : 431 ms Normal sinus rhythm Minimal voltage criteria for LVH, may be normal variant Borderline ECG When compared with ECG of 11-JUL-2017 17:21, No significant change was found Confirmed by Jun Lao ([id number]) on 05/04/2022 10:50:10 AM Referred By: REFERRED SELF Confirmed By:Jun Lao
[2022-05-04] MEDS ORDERED: ALUMINUM/MAGNESIUM SUSP 18 ML, LIDOCAINE VISCOUS 2% SOLN 6 ML, BARCODE IDENTIFIER 1 EACH PO ONE (11:34)
--- NOTE | 2022-05-04 11:34 | Hospitalist Progress Note ---
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 Patient was managed conservatively with pain control as well as TLSO brace and was discharged home on 05/02/2022. He has had worsening back pain and difficulty with ambulation since returning home therefore, he returns to the hospital requesting placement at rehab. No falls since returning home. No fevers, chills. No neurological deficits Pain is all across lower back, not at level of L1. Mostly with pain over left SI joint No worsening focal weakness over baseline (bilat foot drop, etc.) -consult Ortho SPine for further eval--> ordered Lumbar Spine CT Management of back pain with scheduled Tylenol 1 g p.o. 3 times daily Lidoderm patch Topical diclofenac gel dc Morphine as it gave him a headache--> add on IV dilaudid prn Continue home gabapentin 300 mg p.o. twice daily Continue home duloxetine 60 mg p.o. every afternoon Continue home calcitonin spray Heat as needed for comfort Patient may continue to wear his TLSO brace while out of bed (2) Constipation: Plan: Patient reports constipation since his hospitalization. He is passing flatus. Denies abdominal pain Dulcolax 10 mg [place] daily as needed Magnesium hydroxide as needed MiraLAX as needed Senna 8.6 mg p.o. daily Gentle hydration (3) Type 1 diabetes mellitus on insulin therapy: Plan: Chronic. Last hemoglobin A1c = 6.1% in March. Patient had some a.m. hypoglycemia during his last hospital stay Lantus 35 units nightly Insulin sliding scale Glycemic management consultation appreciated (4) Cellulitis: Plan: Patient was treated for a lower extremity cellulitis during his hospital stay. He was discharged on Keflex and doxycycline to continue through May 05. We will continue Keflex 500 mg p.o. 3 times daily through 05/05/2022 Continue doxycycline 100 mg p.o. twice daily through 05/05/2022 Cellulitis now compeltely resolved (5) Hypercholesterolemia: Plan: Chronic. Patient is statin intolerant Continue Zetia 10 mg p.o. daily (6) Hypertension: Plan: Blood pressure here normal Pain control Continue lisinopril 5 mg p.o. every morning Continue to monitor (7) Polymyositis-dermatomyositis: Plan: Patient on chronic longstanding steroids. Presently on prednisone 17 mg p.o. daily. His steroids were briefly increased during his hospital stay. Patient follows with [facility] rheumatology Prednisone 20 mg daily x2 days then resume patient's prednisone at 17 mg p.o. daily Continue home taper as instructed (8) Chest pain: Plan: had continuous chest pain all day that seems MSK in nature, strained left pectoralis muscle from trying to roll self over in bed troponin neg x2 ECG no ischemic changes pain improved with IV dilaudid Do NOT suspect angina trial also of GI cocktail Plan DVT prophylaxis-add on Lovenox Dispo-continued stay Admission and Anticipated Discharge Date Admission Date: May 04, 2022 Subjective Pt started having pain in left side of chest since 4:00 that is constant in nature and worse with movement and trying to use his left arm to pull himself around in bed. The pain does radiate a bit into the left shoulder. It made him very anxious and then he believes he had an anxiety attack. This improved somewhat with taking IV dilaudid. He is having severe pain across his whole lower back. Also reports feeling flushed and sweaty in his face but his feet are cold and purplish but he htinks it is from his socks being too tight and for h aving to sit in a chair for a while in the waiting room. ECG and troponin performed for chest pain and normal. Pain was reproducible on exam with palpation and with resistance against LUE with internal rotation. He has still not moved his bowels in many days. Review of Systems Review of Systems: All systems reviewed & are unremarkable except as noted in HPI & below Physical Exam Constitutional: WD/WN, vitals as above Eyes: + anicteric sclerae Neck: trachea midline, no thyromegaly Respiratory: normal respiratory effort, lungs clear to auscultation Cardiovascular: RRR, no murmur, no edema Chest (Breasts): Chest: normal inspection of chest Additional Comments: +TTP over left pectoralis muscle and tendon insertion, FROM of left shoulder with some pain Gastrointestinal (Abdomen): normal bowel sounds, soft, nontender, no hepatosplenomegaly Musculoskeletal: Extremities: + extremities abnormal to inspection (bilat foot drop), no cyanosis and no clubbing Skin: no rashes, warm and dry feet bilat purple and cool to the touch, 1+ DP pulses bilat, cap refill intact, sensation intact Neurologic: moves all extremities, + focal motor deficit (bilat foot drop,4/5 strength throughout LEs) and awake Psychiatric: A+Ox3, euthymic affect Results & Data Results & Data ([facility]) Vital Signs (Past 12 Hours) Vital Signs Temp Pulse Pulse Resp BP BP Pulse Ox 05/04/22 07:27 36.7 C 69 18 156/91 H 99 05/04/22 03:15 36.9 C 69 16 167/85 H 97 05/04/22 03:22 05/04/22 03:18 36.9 C 69 16 167/85 H 97 05/04/22 02:45 65 19 170/92 H 98 05/04/22 02:05 73 16 149/89 H 96 05/04/22 01:15 72 20 160/92 H 96 05/04/22 00:21 70 16 162/94 H 97 O2 Del Method 05/04/22 07:27 Room Air 05/04/22 03:15 Room Air 05/04/22 03:22 Room Air 05/04/22 03:18 Room Air 05/04/22 02:45 Room Air 05/04/22 02:05 05/04/22 01:15 Room Air 05/04/22 00:21 Room Air Laboratory Results 05/04/22 05/04/22 05/04/22 Range/Units 20:42 16:57 15:34 WBC (4.8-10.8) K/ul RBC (4.63-6.08) M/uL Hgb (14.0-18.0) g/dl Hct (40.1-51.0) % MCV (80.0-100.0) fL MCH (25.0-34.0) pg MCHC (32.0-36.0) g/dL RDW Std Deviation (36.4-46.3) fL RDW Coeff of Amy (11.5-14.5) % Plt Count (130-400) K/uL MPV (9.4-12.4) fL Immature Gran % (Auto) % Neut % (Auto) % Lymph % (Auto) % Walsh % (Auto) % Eos % (Auto) % Baso % (Auto) % Neut # (Auto) (1.4-6.5) K/uL Lymph # (Auto) (1.2-3.4) K/uL Walsh # (Auto) (0.24-0.82) K/uL Eos # (Auto) (0-0.50) K/uL Baso # (Auto) (0-0.2) K/uL Immature Gran # (Auto) (0.00-0.02) K/uL Sodium (136-145) mmol/L Potassium Chloride (98-107) mmol/L Carbon Dioxide (21-32) mmol/L Anion Gap (3-11) BUN (6-23) mg/dl Creatinine (0.6-1.4) mg/dl Est Cr Clr Drug Dosing Est GFR ( Amer) ml/min Est GFR (Non-Af Amer) ml/min BUN/Creatinine Ratio (10-20) Glucose (70-99(Fasting)) mg/dl POC Glucose 186 H 184 H (70-99) mg/dl Calcium (8.5-10.1) mg/dl Phosphorus (2.5-4.9) mg/dl Magnesium (1.7-2.4) mg/dl Total Bilirubin (0.2-1.0) mg/dl AST ALT (7-52) U/L Alkaline Phosphatase (34-104) U/L Troponin I High Sens 11.3 (0-20) pg/ml Total Protein (6.0-8.3) gm/dl Albumin (3.4-5.0) gm/dl Globulin (2.5-4.0) gm/dl Albumin/Globulin Ratio (0.9-2) Urine Color Urine Appearance (Clear) Urine pH (4.5-7.5) Ur Specific [place] (1.000-1.030) Urine Protein (Negative) Urine Glucose (UA) (Negative) Urine Ketones (Negative) Urine Blood (Negative) Urine Nitrite (Negative) Urine Bilirubin (Negative) Urine Urobilinogen (Negative) Ur Leukocyte Esterase (Negative) SARS-CoV-2, RNA, NAAT (NEGATIVE) 05/04/22 05/04/22 05/04/22 Range/Units 11:56 08:11 08:08 WBC (4.8-10.8) K/ul RBC (4.63-6.08) M/uL Hgb (14.0-18.0) g/dl Hct (40.1-51.0) % MCV (80.0-100.0) fL MCH (25.0-34.0) pg MCHC (32.0-36.0) g/dL RDW Std Deviation (36.4-46.3) fL RDW Coeff of Amy (11.5-14.5) % Plt Count (130-400) K/uL MPV (9.4-12.4) fL Immature Gran % (Auto) % Neut % (Auto) % Lymph % (Auto) % Walsh % (Auto) % Eos % (Auto) % Baso % (Auto) % Neut # (Auto) (1.4-6.5) K/uL Lymph # (Auto) (1.2-3.4) K/uL Walsh # (Auto) (0.24-0.82) K/uL Eos # (Auto) (0-0.50) K/uL Baso # (Auto) (0-0.2) K/uL Immature Gran # (Auto) (0.00-0.02) K/uL Sodium (136-145) mmol/L Potassium Chloride (98-107) mmol/L Carbon Dioxide (21-32) mmol/L Anion Gap (3-11) BUN (6-23) mg/dl Creatinine (0.6-1.4) mg/dl Est Cr Clr Drug Dosing Est GFR ( Amer) ml/min Est GFR (Non-Af Amer) ml/min BUN/Creatinine Ratio (10-20) Glucose (70-99(Fasting)) mg/dl POC Glucose 192 H 109 H (70-99) mg/dl Calcium (8.5-10.1) mg/dl Phosphorus (2.5-4.9) mg/dl Magnesium (1.7-2.4) mg/dl Total Bilirubin (0.2-1.0) mg/dl AST ALT (7-52) U/L Alkaline Phosphatase (34-104) U/L Troponin I High Sens 13.7 (0-20) pg/ml Total Protein (6.0-8.3) gm/dl Albumin (3.4-5.0) gm/dl Globulin (2.5-4.0) gm/dl Albumin/Globulin Ratio (0.9-2) Urine Color Urine Appearance (Clear) Urine pH (4.5-7.5) Ur Specific [place] (1.000-1.030) Urine Protein (Negative) Urine Glucose (UA) (Negative) Urine Ketones (Negative) Urine Blood (Negative) Urine Nitrite (Negative) Urine Bilirubin (Negative) Urine Urobilinogen (Negative) Ur Leukocyte Esterase (Negative) SARS-CoV-2, RNA, NAAT (NEGATIVE) 05/04/22 05/04/22 05/04/22 Range/Units 04:23 01:15 00:49 WBC (4.8-10.8) K/ul RBC (4.63-6.08) M/uL Hgb (14.0-18.0) g/dl Hct (40.1-51.0) % MCV (80.0-100.0) fL MCH (25.0-34.0) pg MCHC (32.0-36.0) g/dL RDW Std Deviation (36.4-46.3) fL RDW Coeff of Amy (11.5-14.5) % Plt Count (130-400) K/uL MPV (9.4-12.4) fL Immature Gran % (Auto) % Neut % (Auto) % Lymph % (Auto) % Walsh % (Auto) % Eos % (Auto) % Baso % (Auto) % Neut # (Auto) (1.4-6.5) K/uL Lymph # (Auto) (1.2-3.4) K/uL Walsh # (Auto) (0.24-0.82) K/uL Eos # (Auto) (0-0.50) K/uL Baso # (Auto) (0-0.2) K/uL Immature Gran # (Auto) (0.00-0.02) K/uL Sodium (136-145) mmol/L Potassium Chloride (98-107) mmol/L Carbon Dioxide (21-32) mmol/L Anion Gap (3-11) BUN (6-23) mg/dl Creatinine (0.6-1.4) mg/dl Est Cr Clr Drug Dosing Est GFR ( Amer) ml/min Est GFR (Non-Af Amer) ml/min BUN/Creatinine Ratio (10-20) Glucose (70-99(Fasting)) mg/dl POC Glucose 97 (70-99) mg/dl Calcium (8.5-10.1) mg/dl Phosphorus (2.5-4.9) mg/dl Magnesium (1.7-2.4) mg/dl Total Bilirubin (0.2-1.0) mg/dl AST ALT (7-52) U/L Alkaline Phosphatase (34-104) U/L Troponin I High Sens (0-20) pg/ml Total Protein (6.0-8.3) gm/dl Albumin (3.4-5.0) gm/dl Globulin (2.5-4.0) gm/dl Albumin/Globulin Ratio (0.9-2) Urine Color Yellow Urine Appearance Clear (Clear) Urine pH 6.5 (4.5-7.5) Ur Specific [place] 1.016 (1.000-1.030) Urine Protein Negative (Negative) Urine Glucose (UA) Negative (Negative) Urine Ketones Trace H (Negative) Urine Blood Negative (Negative) Urine Nitrite Negative (Negative) Urine Bilirubin Negative (Negative) Urine Urobilinogen Negative (Negative) Ur Leukocyte Esterase Negative (Negative) SARS-CoV-2, RNA, NAAT NEGATIVE (NEGATIVE) 05/04/22 05/04/22 05/03/22 Range/Units 00:41 00:41 23:04 WBC (4.8-10.8) K/ul RBC (4.63-6.08) M/uL Hgb (14.0-18.0) g/dl Hct (40.1-51.0) % MCV (80.0-100.0) fL MCH (25.0-34.0) pg MCHC (32.0-36.0) g/dL RDW Std Deviation (36.4-46.3) fL RDW Coeff of Amy (11.5-14.5) % Plt Count (130-400) K/uL MPV (9.4-12.4) fL Immature Gran % (Auto) % Neut % (Auto) % Lymph % (Auto) % Walsh % (Auto) % Eos % (Auto) % Baso % (Auto) % Neut # (Auto) (1.4-6.5) K/uL Lymph # (Auto) (1.2-3.4) K/uL Walsh # (Auto) (0.24-0.82) K/uL Eos # (Auto) (0-0.50) K/uL Baso # (Auto) (0-0.2) K/uL Immature Gran # (Auto) (0.00-0.02) K/uL Sodium 137 (136-145) mmol/L Potassium 3.8 TNP Chloride 103 (98-107) mmol/L Carbon Dioxide 25 (21-32) mmol/L Anion Gap 9 (3-11) BUN 15 (6-23) mg/dl Creatinine 0.44 L (0.6-1.4) mg/dl Est Cr Clr Drug Dosing Not Reportable Est GFR ( Amer) 142.9 ml/min Est GFR (Non-Af Amer) 123.3 ml/min BUN/Creatinine Ratio 34.1 H (10-20) Glucose 156 H (70-99(Fasting)) mg/dl POC Glucose (70-99) mg/dl Calcium 9.8 (8.5-10.1) mg/dl Phosphorus 3.9 (2.5-4.9) mg/dl Magnesium 1.9 (1.7-2.4) mg/dl Total Bilirubin 0.8 (0.2-1.0) mg/dl AST 35 TNP ALT 78 H (7-52) U/L Alkaline Phosphatase 99 (34-104) U/L Troponin I High Sens (0-20) pg/ml Total Protein 7.0 (6.0-8.3) gm/dl Albumin 4.3 (3.4-5.0) gm/dl Globulin 2.7 (2.5-4.0) gm/dl Albumin/Globulin Ratio 1.6 (0.9-2) Urine Color Urine Appearance (Clear) Urine pH (4.5-7.5) Ur Specific [place] (1.000-1.030) Urine Protein (Negative) Urine Glucose (UA) (Negative) Urine Ketones (Negative) Urine Blood (Negative) Urine Nitrite (Negative) Urine Bilirubin (Negative) Urine Urobilinogen (Negative) Ur Leukocyte Esterase (Negative) SARS-CoV-2, RNA, NAAT (NEGATIVE) 05/03/22 Range/Units 23:04 WBC 15.64 H (4.8-10.8) K/ul RBC 6.40 H (4.63-6.08) M/uL Hgb 18.8 H D (14.0-18.0) g/dl Hct 54.9 H (40.1-51.0) % MCV 85.8 (80.0-100.0) fL MCH 29.4 (25.0-34.0) pg MCHC 34.2 (32.0-36.0) g/dL RDW Std Deviation 42.1 (36.4-46.3) fL RDW Coeff of Amy 14.0 (11.5-14.5) % Plt Count 280 (130-400) K/uL MPV 10.9 (9.4-12.4) fL Immature Gran % (Auto) 0.5 % Neut % (Auto) 72.1 % Lymph % (Auto) 16.0 % Walsh % (Auto) 10.3 % Eos % (Auto) 0.8 % Baso % (Auto) 0.3 % Neut # (Auto) 11.28 H (1.4-6.5) K/uL Lymph # (Auto) 2.51 (1.2-3.4) K/uL Walsh # (Auto) 1.61 H (0.24-0.82) K/uL Eos # (Auto) 0.12 (0-0.50) K/uL Baso # (Auto) 0.04 (0-0.2) K/uL Immature Gran # (Auto) 0.08 H (0.00-0.02) K/uL Sodium (136-145) mmol/L Potassium Chloride (98-107) mmol/L Carbon Dioxide (21-32) mmol/L Anion Gap (3-11) BUN (6-23) mg/dl Creatinine (0.6-1.4) mg/dl Est Cr Clr Drug Dosing Est GFR ( Amer) ml/min Est GFR (Non-Af Amer) ml/min BUN/Creatinine Ratio (10-20) Glucose (70-99(Fasting)) mg/dl POC Glucose (70-99) mg/dl Calcium (8.5-10.1) mg/dl Phosphorus (2.5-4.9) mg/dl Magnesium (1.7-2.4) mg/dl Total Bilirubin (0.2-1.0) mg/dl AST ALT (7-52) U/L Alkaline Phosphatase (34-104) U/L Troponin I High Sens (0-20) pg/ml Total Protein (6.0-8.3) gm/dl Albumin (3.4-5.0) gm/dl Globulin (2.5-4.0) gm/dl Albumin/Globulin Ratio (0.9-2) Urine Color Urine Appearance (Clear) Urine pH (4.5-7.5) Ur Specific [place] (1.000-1.030) Urine Protein (Negative) Urine Glucose (UA) (Negative) Urine Ketones (Negative) Urine Blood (Negative) Urine Nitrite (Negative) Urine Bilirubin (Negative) Urine Urobilinogen (Negative) Ur Leukocyte Esterase (Negative) SARS-CoV-2, RNA, NAAT (NEGATIVE) PG Care Time/CCT Total # of Minutes Spent Total Time Spent with Patient: Total time spent is greater than 50% in coordination of care (as documented) at patient's floor/unit and/or counseling patient: Coding Level of Care Code None Diagnoses Burst fracture of lumbar vertebra S32.001A Constipation K59.00 Type 1 diabetes mellitus on insulin therapy E10.9 Cellulitis L03.90 Hypercholesterolemia E78.00 Hypertension I10 Polymyositis-dermatomyositis M33.90 Chest pain R07.9
[2022-05-04] MEDS: POLYETHYLENE (MIRALAX) 17 GM PACK PO PRN (13:07)
--- NOTE | 2022-05-04 15:20 | CT Scan Report ---
CT lumbar spine wo con CLINICAL HISTORY: back pain TECHNIQUE: Multidetector row helical CT of the lumbar spine was performed without administration of i ntravenous contrast. Coronal and sagittal reformations were obtained. Automated dose lowering techniq ues and/or adjustment according to patient size were utilized for this exam. CT DOSE: 626.95 mGycm Comparison: Comparison is made to CT lumbar spine 01/26/2022 FINDINGS: For counting purposes, the last complete intervertebral disc space is considered L5-S1. Interval worsening of a wedge deformity in L1. Anterior cortical height now measures 21 mm, compared to 25 mm in prior exam. A fracture line extends through the right superior endplate and horizontally across the superior aspect of the vertebral body. A fracture fragment also extends vertically to the inferior endplate. Vertebral body heights and disk spaces are well maintained. Vertebral body alignme nt is within normal limits. Surrounding soft tissues are unremarkable. IMPRESSION: Interval worsening of compression deformity of the L1 vertebral body. No retropulsion is seen. ACT 112: Negative or not required by law. Electronically signed by: Rakesh Thompson M.D. 05/04/2022 3:19 PM
[2022-05-04] MEDS: DULoxetine HCL 60 MG CAP PO SCH (20:28)
[2022-05-04] MEDS: TAMSULOSIN HCL 0.4 MG CAP PO SCH (20:28)
[2022-05-04] MEDS: traZODone HCL 100 MG TAB PO SCH (20:28)
[2022-05-04] MEDS ORDERED: LANTUS PER UNIT CHARGE SQ SCH ×2 (21:00)
[2022-05-05] MEDS: HYDROmorphone INJ 0.5 MG/0.5 ML SYR IV PRN ×2 (03:19→15:55)
[2022-05-05] MEDS ORDERED: INSULIN ASPART PER UNIT SC ONE (04:00)
[2022-05-05 08:06] LABS: Hematocrit (blood only) 51.7 % (40.1-51.0); Hemoglobin 17.6 g/dl (14.0-18.0); Mean Corpuscular Hemoglobin 29.1 pg (25.0-34.0); Mean Corpuscular Volume 85.5 fL (80.0-100.0); Mean Platelet Volume 10.6 fL (9.4-12.4); Platelet Count 264 K/uL (130-400); RDW Coefficient of Variation 13.9 % (11.5-14.5); RDW Standard Deviation 42.8 fL (36.4-46.3); Red Blood Count 6.05 M/uL (4.63-6.08); White Blood Count 10.85 K/ul (4.8-10.8)
[2022-05-05 08:31] LABS: Calcium 9.1 mg/dl (8.5-10.1); Creatinine Clr Calc Pharmacy 244.8 ml/min; Est GFR (African American) 148.6 ml/min; Est GFR (Non-African American) 128.2 ml/min
[2022-05-05] MEDS: EZETIMIBE 10 MG TABLET PO SCH (08:37)
[2022-05-05] MEDS: DOXYCYCLINE HYCLATE 100 MG CAP PO SCH ×2 (08:37→20:27)
[2022-05-05] MEDS: cephALEXin 500 MG CAP PO SCH ×3 (08:37→20:27)
[2022-05-05] MEDS: ACETAMINOPHEN 500 MG TAB PO SCH ×3 (08:38→20:27)
[2022-05-05] MEDS: SENNA 8.6 MG TAB PO SCH (08:39)
[2022-05-05] MEDS: LIDOCAINE 5% 1 PATCH TD SCH (08:39)
[2022-05-05] MEDS: predniSONE 5 MG TAB PO SCH (08:39)
[2022-05-05] MEDS: predniSONE 1 MG TAB PO SCH (08:40)
[2022-05-05] MEDS: lisinopril 5 MG TAB PO SCH (08:40)
[2022-05-05] MEDS: GABAPENTIN 300 MG CAP PO SCH ×2 (08:40→20:27)
[2022-05-05] MEDS ORDERED: HYDROmorphone INJ 0.5 MG/0.5 ML SYR IV STA (08:41)
[2022-05-05] MEDS: ENOXAPARIN INJ 40 MG/0.4 ML SYR SQ SCH (08:41)
[2022-05-05] MEDS: CALCITONIN SALMON NA 200 IU/AC 3.7 ML BTL SCH (08:41)
--- NOTE | 2022-05-05 08:46 | Orthopedic Consultation ---
Date of Consultation May 05, 2022 Assessment & Plan (1) Burst fracture of lumbar vertebra: Assessment L1 burst fracture. Plan at this time his updated CAT scan clearly shows further collapse of the L1 vertebral body. This is obviously contributing to his decline in function and increased pain. I had a discussion with him today regarding a possible kyphoplasty of L1. He would like to pursue this procedure. He understands this will help some of his pain but by no means will limit all of his discomfort. Risk benefits pros cons and alternatives were outlined in detail. We will plan for surgery Saturday if he is cleared by medicine. History of Present Illness Reason for Consultation: Back pain Attending Physician: Dolores Queen MD History of Present Illness This is a 61-year-old male that had a fall about a week ago at home in the shower. He was improving but over the past day or so had marked decline in status with worsening back pain. Denies any new onset of leg pain. He does have a significant medical history including myositis and diabetes. He states the pain is incapacitating and is unable to manage himself at home. Allergies Allergy/AdvReac Type Severity Reaction Status Date / Time mercaptopurine AdvReac Severe JAUNDICE Verified 05/03/22 23:10 Home Medications Medication Instructions Recorded Confirmed Type multivitamin (Daily Multi-Vitamin 1 tab PO QAM 03/04/19 05/03/22 History tablet) blood sugar diagnostic (OneTouch #10 ea 04/01/19 05/03/22 History Ultra Blue Test Strip) vedolizumab 300 mg intravenous 300 mg IV Q8WK 04/01/19 05/03/22 History solution diphenoxylate-atropine 2.5 1 tab PO QID PRN diarrhea #360 tabs 07/20/19 05/03/22 Rx mg-0.025 mg tablet CPAP Supplies #1 ea 10/08/19 05/03/22 Rx duloxetine 60 mg capsule,delayed 60 mg PO QPM 03/01/20 05/03/22 History release flash glucose scanning reader #1 ea 06/21/20 05/03/22 Rx (FreeStyle [place] 14 Day [place]) prednisone 5 mg tablet 10 mg PO QAM #90 tabs 05/19/21 05/03/22 History trazodone 100 mg tablet 100 mg PO HS #90 tabs 05/22/21 05/03/22 Rx insulin aspart See Rx Instructions subcut 08/07/21 05/03/22 Rx (niacinamide)(U-100) 100 unit/mL(3 .COMPLEX 90 days #100 mL mL) subcutaneous pen (Fiasp FlexTouch U-100 Insulin) lisinopril 5 mg tablet 5 mg PO QAM #90 tabs 11/06/21 05/03/22 Rx flash glucose sensor (FreeStyle #2 ea 12/12/21 05/03/22 Rx [place] 14 Day Sensor kit) zolpidem 12.5 mg tablet,extended 12.5 mg PO HS PRN insomnia #30 tabs 02/13/22 05/03/22 Rx release,multiphase pen needle, diabetic 32 gauge x #500 ea 03/12/22 05/03/22 Rx 5/32" (BD Ultra-Fine Marsha Pen Needle) gabapentin 300 mg capsule 300 mg PO BID #180 caps 03/15/22 05/03/22 Rx ezetimibe 10 mg tablet 10 mg PO DAILY 04/28/22 05/03/22 History hydrocodone 5 mg-acetaminophen 325 1 tab PO Q6H PRN Pain 04/28/22 05/03/22 History mg tablet insulin glargine 100 unit/mL (3 65 unit subcut QPM 04/28/22 05/03/22 History mL) subcutaneous pen (Basaglar KwikPen U-100 Insulin) acetaminophen 500 mg tablet 1,000 mg PO TID #30 tabs 05/02/22 05/03/22 Rx (Tylenol Extra Strength) calcitonin (salmon) 200 1 spray NA DAILY #3.7 mL 05/02/22 05/03/22 Rx unit/actuation nasal spray cephalexin 500 mg capsule 500 mg PO TID 3 days #9 caps 05/02/22 05/03/22 Rx cyanocobalamin (vitamin B-12) 1,000 mcg PO DAILY #30 tabs 05/02/22 05/03/22 Rx 1,000 mcg tablet diclofenac sodium 1 % topical gel 4 g EXT QID PRN joint pain #100 05/02/22 05/03/22 Rx (Voltaren Arthritis Pain) grams doxycycline hyclate 100 mg capsule 100 mg PO BID 3 days #6 caps 05/02/22 05/03/22 Rx lidocaine 5 % topical patch 1 patch transdermal QAM #30 ea 05/02/22 05/03/22 Rx tamsulosin 0.4 mg capsule 0.4 mg PO HS #14 caps 05/02/22 05/03/22 Rx Patient History Medical History Chronic back pain Chronic steroid use Crohn's disease Diverticulosis Dysfunction of right eustachian tube Elevated hemoglobin A1c History of intestinal obstruction History of migraine HLD (hyperlipidemia) HTN (hypertension) Inclusion body myositis Follows with [facility] Mixed conductive and sensorineural hearing loss of right ear with restricted hearing of left ear Osteoarthritis Polymyositis-dermatomyositis Sleep apnea CPAP Statin myopathy Type 1 diabetes mellitus on insulin therapy Wheelchair bound Surgical History History of biopsy muscle History of cholecystectomy History of colonoscopy History of esophagogastroduodenoscopy (EGD) History of incision and drainage (2016) I&D of sebaceous cyst right upper back History of intestinal surgery History of surgery (2017) epidermal cyst excision History of wisdom tooth extraction Family History Unknown Breast cancer Father Diabetes Father Hearing loss Stroke Mother Hypertension Cancer Heart disease Other Allergies No family history of adverse response to anesthesia No family history of bleeding disorder Denies family history of Ovarian cancer Prostate cancer Myocardial infarction Colorectal cancer Social History Smoking Status: Former smoker Tobacco Type: Cigarettes Age Started Using Tobacco: 14; Age Quit Using Tobacco: 17; Second Hand Exposure: No; Hx Alcohol Use: No Hx Substance Use: No Preferred Language: Kiswahili Communication Ability: Effective Visual Impairment: No Limitations Hearing Ability: Normal Specification Writer Required: No Beliefs That Will Affect Care: None marital status: Current Living Situation: Spouse current occupational status: employed current occupation: security How many Children do You have: 1 Feels Safe at Home: Yes Childhood Exposure to Second-Hand Smoke: Yes Diet Comment: regular caffeine: Yes during the past year weight has: remained stable Dental Care, Regularly: Yes Physical Activity Frequency: Does not Exercise Seatbelt Use: always Sunscreen Use: Yes Assistive Devices: CPAP, Walker and Wheelchair Physical Exam Physical Exam: On exam he is supine in bed. He does have gross deficit strength of the lower extremities that is pre-existing. He does have pain to palpation percussion of the lumbar musculature. Results & Data ([facility]) Vital Signs (Past 12 Hours) Vital Signs Temp Pulse Resp BP Pulse Ox O2 Del Method 05/05/22 08:36 74 145/77 H 05/05/22 07:03 36.6 C 66 18 148/88 H 97 Room Air 05/04/22 21:20 36.6 C 71 16 134/72 96 Room Air
[2022-05-05] MEDS: INSULIN ASPART PER UNIT SC SCH ×4 (09:33→20:37)
[2022-05-05] MEDS ORDERED: SOD PHOSPHATE/SOD BIPHOSPHATE ENEMA 132 ML BTL PR STA (12:04)
[2022-05-05] MEDS ORDERED: LANTUS PER UNIT CHARGE SQ ONE (12:15)
--- NOTE | 2022-05-05 17:04 | Hospitalist Progress Note ---
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 Patient was managed conservatively with pain control as well as TLSO brace and was discharged home on 05/02/2022. He has had worsening back pain and difficulty with ambulation since returning home therefore, he returns to the hospital requesting placement at rehab. No falls since returning home. No fevers, chills. No neurological deficits Pain is all across lower back, not at level of L1. Mostly with pain over left SI joint No worsening focal weakness over baseline (bilat foot drop, etc.) -consult Ortho SPine for further eval--> ordered Lumbar Spine CT which showed further compression of the L1 fracture which he believes is contributing to the pain -Plan now for kyphoplasty on Monday 05/07-patient is medically optimized for surgery and will need stress dose steroids administered prior to surgery by anesthesia Management of back pain with scheduled Tylenol 1 g p.o. 3 times daily, add on oxycodone 5 mg p.o. every 4 hours and make IV Dilaudid 0.5 mg IV every 4 hours as needed breakthrough pain Continue Lidoderm patch and topical diclofenac gel Continue home gabapentin 300 mg p.o. twice daily Continue home duloxetine 60 mg p.o. every afternoon Continue home calcitonin spray Heat as needed for comfort Patient may continue to wear his TLSO brace while out of bed (2) Constipation: Plan: And significant constipation due to recent opioid use Finally had multiple large bowel movements on 05/05 after 5 to 6 days of constipation-this was after receiving oral laxatives as well as a fleets enema and manual disimpaction Dulcolax 10 mg MD daily as needed Magnesium hydroxide as needed MiraLAX as needed Senna 8.6 mg p.o. daily (3) Type 1 diabetes mellitus on insulin therapy: Plan: Chronic. Last hemoglobin A1c = 6.1% in March. Patient had some a.m. hypoglycemia during his last hospital stay Continue Lantus and NovoLog Glycemic management consultation appreciated (4) Cellulitis: Plan: Patient was treated for a lower extremity cellulitis during his hospital stay. He was discharged on Keflex and doxycycline to continue through May 05. We will continue Keflex 500 mg p.o. 3 times daily through 05/05/2022 Continue doxycycline 100 mg p.o. twice daily through 05/05/2022 Cellulitis now compeltely resolved (5) Hypercholesterolemia: Plan: Chronic. Patient is statin intolerant Continue Zetia 10 mg p.o. daily (6) Hypertension: Plan: Blood pressures are normal here Continue lisinopril 5 mg p.o. every morning Continue to monitor (7) Polymyositis-dermatomyositis: Plan: Patient on chronic longstanding steroids. Presently on prednisone 17 mg p.o. daily. His steroids were briefly increased during his hospital stay. Patient follows with [facility] rheumatology He is going to be done with his prednisone burst and taper by tomorrow morning and will resume his home dose of prednisone at 17 mg p.o. daily Plan for stress dose steroids in the perioperative timeframe on Saturday (8) Chest pain: Plan: had continuous chest pain all day on 05/04 that is persisting and 05/05 that is definitely MSK in nature, directly tender to palpation and worse with use of the pectoralis muscle. Strained left pectoralis muscle from trying to roll self over in bed troponin neg x2 ECG no ischemic changes pain improved with IV dilaudid Do NOT suspect angina Plan DVT prophylaxis- Lovenox but will hold on Saturday for procedure Saturday Dispo-continued stay, PT/OT consults Admission and Anticipated Discharge Date Admission Date: May 04, 2022 Subjective Patient was still very constipated today but after fleets enema, he finally was able to move his bowels a large amount on 3 occasions. He feels much better in that regard. Still having a lot of pain in the lower back and asks for something for pain more often. He is also asking if his home Ambien can be ordered. Still has some muscle soreness/tightness in the left side of the chest since yesterday which makes him comforted knowing that it is a muscle strain. No further flushing or diaphoresis like yesterday. Review of Systems Review of Systems: All systems reviewed & are unremarkable except as noted in HPI & below Physical Exam Constitutional: WD/WN, vitals as above Eyes: + anicteric sclerae Neck: trachea midline, no thyromegaly Respiratory: normal respiratory effort, lungs clear to auscultation Cardiovascular: RRR, no murmur, no edema Chest (Breasts): Chest: normal inspection of chest Gastrointestinal (Abdomen): normal bowel sounds, soft, nontender, no hepatosplenomegaly Musculoskeletal: Extremities: + extremities abnormal to inspection (bilat foot drop), no cyanosis and no clubbing Skin: no rashes, warm and dry With chronic venous stasis changes in legs bilaterally with left leg and foot slightly more pink than right Neurologic: moves all extremities, + focal motor deficit (bilat foot drop,4/5 strength throughout LEs) and awake Psychiatric: A+Ox3, euthymic affect Results & Data Results & Data ([facility]) Vital Signs (Past 12 Hours) Vital Signs Temp Pulse Resp BP Pulse Ox O2 Del Method 05/05/22 16:17 36.9 C 83 18 135/85 94 Room Air 05/05/22 07:25 Room Air 05/05/22 08:36 74 145/77 H 05/05/22 07:03 36.6 C 66 18 148/88 H 97 Room Air Laboratory Results 05/05/22 05/05/22 05/05/22 Range/Units 11:55 08:01 07:18 WBC (4.8-10.8) K/ul RBC (4.63-6.08) M/uL Hgb (14.0-18.0) g/dl Hct (40.1-51.0) % MCV (80.0-100.0) fL MCH (25.0-34.0) pg MCHC (32.0-36.0) g/dL RDW Std Deviation (36.4-46.3) fL RDW Coeff of Amy (11.5-14.5) % Plt Count (130-400) K/uL MPV (9.4-12.4) fL Sodium 137 (136-145) mmol/L Potassium 4.0 (3.5-5.1) mmol/L Chloride 102 (98-107) mmol/L Carbon Dioxide 28 (21-32) mmol/L Anion Gap 7 (3-11) BUN 18 (6-23) mg/dl Creatinine 0.40 L (0.6-1.4) mg/dl Est Cr Clr Drug Dosing 244.8 ml/min Est GFR ( Amer) 148.6 ml/min Est GFR (Non-Af Amer) 128.2 ml/min BUN/Creatinine Ratio 45.0 H (10-20) Glucose 127 H (70-99(Fasting)) mg/dl POC Glucose 225 H 115 H (70-99) mg/dl Calcium 9.1 (8.5-10.1) mg/dl 05/05/22 05/04/22 Range/Units 07:18 20:42 WBC 10.85 H (4.8-10.8) K/ul RBC 6.05 (4.63-6.08) M/uL Hgb 17.6 (14.0-18.0) g/dl Hct 51.7 H (40.1-51.0) % MCV 85.5 (80.0-100.0) fL MCH 29.1 (25.0-34.0) pg MCHC 34.0 (32.0-36.0) g/dL RDW Std Deviation 42.8 (36.4-46.3) fL RDW Coeff of Amy 13.9 (11.5-14.5) % Plt Count 264 (130-400) K/uL MPV 10.6 (9.4-12.4) fL Sodium (136-145) mmol/L Potassium (3.5-5.1) mmol/L Chloride (98-107) mmol/L Carbon Dioxide (21-32) mmol/L Anion Gap (3-11) BUN (6-23) mg/dl Creatinine (0.6-1.4) mg/dl Est Cr Clr Drug Dosing ml/min Est GFR ( Amer) ml/min Est GFR (Non-Af Amer) ml/min BUN/Creatinine Ratio (10-20) Glucose (70-99(Fasting)) mg/dl POC Glucose 186 H (70-99) mg/dl Calcium (8.5-10.1) mg/dl PG Care Time/CCT Total # of Minutes Spent Total Time Spent with Patient: Total time spent is greater than 50% in coordination of care (as documented) at patient's floor/unit and/or counseling patient: Coding Level of Care Code 04073 Subseq Hosp Care Lvl 2 Diagnoses Burst fracture of lumbar vertebra S32.001A Constipation K59.00 Type 1 diabetes mellitus on insulin therapy E10.9 Cellulitis L03.90 Hypercholesterolemia E78.00 Hypertension I10 Polymyositis-dermatomyositis M33.90 Chest pain R07.9
[2022-05-05] MEDS: oxyCODONE HCL IR 5 MG TAB (IMMEDIATE RELEASE) PO PRN (19:35)
[2022-05-05] MEDS: TAMSULOSIN HCL 0.4 MG CAP PO SCH (20:27)
[2022-05-05] MEDS: traZODone HCL 100 MG TAB PO SCH (20:27)
[2022-05-05] MEDS: DULoxetine HCL 60 MG CAP PO SCH (20:27)
[2022-05-05] MEDS: ZOLPIDEM TARTRATE 5 MG TAB PO SCH (22:55)
[2022-05-06] MEDS: oxyCODONE HCL IR 5 MG TAB (IMMEDIATE RELEASE) PO PRN ×4 (02:40→17:48)
[2022-05-06] MEDS: HYDROmorphone INJ 0.5 MG/0.5 ML SYR IV PRN ×3 (05:09→22:28)
[2022-05-06] MEDS: EZETIMIBE 10 MG TABLET PO SCH (08:25)
[2022-05-06] MEDS: ENOXAPARIN INJ 40 MG/0.4 ML SYR SQ SCH (08:25)
[2022-05-06] MEDS: GABAPENTIN 300 MG CAP PO SCH ×2 (08:25→19:44)
[2022-05-06] MEDS: ACETAMINOPHEN 500 MG TAB PO SCH ×3 (08:26→19:43)
[2022-05-06] MEDS: CALCITONIN SALMON NA 200 IU/AC 3.7 ML BTL SCH (08:26)
[2022-05-06] MEDS: predniSONE 5 MG TAB PO SCH (08:27)
[2022-05-06] MEDS: SENNA 8.6 MG TAB PO SCH (08:27)
[2022-05-06] MEDS: lisinopril 5 MG TAB PO SCH (08:27)
[2022-05-06] MEDS: LIDOCAINE 5% 1 PATCH TD SCH (08:27)
[2022-05-06] MEDS: predniSONE 1 MG TAB PO SCH (08:28)
--- NOTE | 2022-05-06 09:16 | Pharmacy Report ---
Pharmacy Glycemic Short Note 2 - Date of Service May 06, 2022 - Glycemic Short BSG Results (Last 24 hours): 05/05/22 05/05/22 05/05/22 11:55 17:08 20:23 POC Glucose 225 H 177 H 145 H 05/06/22 08:15 POC Glucose 98 OUTPATIENT ANTIDIABETIC REGIMEN: * Novolog Aspart 38 units at breakfast, 34 units at lunch, 38 units at dinner * Basaglar 65 units QPM HbA1c: 6.1% (04/16/22) ASSESSMENT: 05/06/22 * BSGs reasonably controlled yesterday, except for 225 mg/dL at lunchtime * Fasting BSG of 98 mg/dL this morning - plan to continue current basal * Will give basal with prednisone this morning in attempt to limit hyperglycemic effects of steroid * steroids have been tapered down to 17 mg PO daily 05/04/22 * 61 y/o M admitted for increased back pain and difficulty ambulating since being discharged home two days ago from here. Patient would like rehab placement. * He is a Type 1 diabetic, on basal and bolus insulin at home. * Last admission, he required around 45 units of basal and 52 units bolus (on ) which resulted in fasting BSG of 80 mg/dl on 05/02/22. * Basal insulin was further reduced to 35 units nightly on discharge. It does not look like he took his basal insulin dose last night due to admission, so basal Lantus 30 units was given early today morning around 4 AM. * Plan to resume nightly basal insulin tonight. Will add a scale of basal insulin at HS tonight based on BSG. * Patient had been on higher dose of Prednisone on his last admission (40 mg then 30 mg). Today Prednisone dose reduced to 20 mg then 17 mg daily tomorrow. * Started with looser Novolog parameters yesterday night compared to last admission. PLAN FOR INPATIENT GLYCEMIC CONTROL: * Basal insulin * Lantus 30 units SQ with prednisone 17 mg PO daily * Bolus insulin * NovoLog per scale ACHS or Q6hrs while NPO * Goal Range: Low 110 mg/dL - High 150 mg/dL * Correction Factor: 12 mg/dL/unit * Nutritional / Prandial insulin per carb ratio of 1 unit per 4 grams CHO consumed
[2022-05-06] MEDS: LANTUS PER UNIT CHARGE SQ SCH (09:17)
[2022-05-06] MEDS: INSULIN ASPART PER UNIT SC SCH ×4 (09:17→20:51)
--- NOTE | 2022-05-06 11:11 | Orthopedic Progress Note ---
Date of Service May 06, 2022 Assessment & Plan (1) Burst fracture of lumbar vertebra: Plan: At this time we will make him n.p.o. after midnight we will plan for kyphoplasty tomorrow. Admission and Anticipated Discharge Date Admission Date: May 04, 2022 Subjective Patient continues to have back pain. Physical Exam Physical Exam: Patient sitting up in bed. He is comfortable at rest. Neurologically unchanged. Results & Data ([facility]) Vital Signs (Past 12 Hours) Vital Signs Temp Pulse Resp BP Pulse Ox O2 Del Method 05/06/22 07:07 36.6 C 75 16 123/70 98 Room Air
[2022-05-06] MEDS: DULoxetine HCL 60 MG CAP PO SCH (19:44)
[2022-05-06] MEDS: traZODone HCL 100 MG TAB PO SCH (19:44)
[2022-05-06] MEDS: TAMSULOSIN HCL 0.4 MG CAP PO SCH (19:45)
--- NOTE | 2022-05-06 20:10 | Hospitalist Progress Note ---
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 Patient was managed conservatively with pain control as well as TLSO brace and was discharged home on 05/02/2022. He has had worsening back pain and difficulty with ambulation since returning home therefore, he returns to the hospital requesting placement at rehab. No falls since returning home. No fevers, chills. No neurological deficits Pain is all across lower back, not at level of L1. Mostly with pain over left SI joint No worsening focal weakness over baseline (bilat foot drop, etc.) -consulted Ortho Spine for further eval--> ordered Lumbar Spine CT which showed further compression of the L1 fracture which he believes is contributing to the pain -Plan now for kyphoplasty on Monday 05/07-patient is medically optimized for surgery and may need stress dose steroids administered prior to surgery by anesthesia Management of back pain with scheduled Tylenol 1 g p.o. 3 times daily, continue on oxycodone 5 mg p.o. every 4 hours and IV Dilaudid 0.5 mg IV every 4 hours as needed for breakthrough pain Continue Lidoderm patch and topical diclofenac gel Continue home gabapentin 300 mg p.o. twice daily Continue home duloxetine 60 mg p.o. every afternoon Continue home calcitonin spray Heat as needed for comfort Patient may continue to wear his TLSO brace while out of bed -will need repeat PT/OT evals after kyphoplasty to see if needs SNF vs going home-he does not think he can do acute rehab/3 hrs a day of rehab (2) Constipation: Plan: And significant constipation due to recent opioid use Finally had multiple large bowel movements on 05/05 after 5 to 6 days of const ipation-this was after receiving oral laxatives as well as a fleets enema and manual disimpaction Dulcolax 10 mg AK daily as needed Magnesium hydroxide as needed MiraLAX as needed Senna 8.6 mg p.o. daily (3) Type 1 diabetes mellitus on insulin therapy: Plan: Chronic. Last hemoglobin A1c = 6.1% in March. Patient had some a.m. hypoglycemia during his last hospital stay Continue Lantus and NovoLog Glycemic management consultation appreciated -pt worried about hypoglycemia while NPO tomorrow-added D5LR at 80mL/hr x 1 L while NPO (4) Cellulitis: Plan: Patient was treated for a lower extremity cellulitis during his hospital stay. He was discharged on Keflex and doxycycline and completed course on May 05. Cellulitis now completely resolved (5) Hypercholesterolemia: Plan: Chronic. Patient is statin intolerant Continue Zetia 10 mg p.o. daily (6) Hypertension: Plan: Blood pressures are normal here Continue lisinopril 5 mg p.o. every morning Continue to monitor (7) Polymyositis-dermatomyositis: Plan: Patient on chronic longstanding steroids. Presently on prednisone 17 mg p.o. daily. Completed a burst and taper last admission may need stress dose steroids in the perioperative timeframe on Saturday-defer to Anesthesia (8) Chest pain: Plan: had continuous chest pain all day on 05/04 that is persisting and 05/05 that is def initely MSK in nature, directly tender to palpation and worse with use of the pectoralis muscle. Strained left pectoralis muscle from trying to roll self over in bed Now much improved troponin neg x2 ECG no ischemic changes pain improved with IV dilaudid Do NOT suspect angina (9) Insomnia: Plan: continue Ambien, trazodone Plan DVT prophylaxis- Lovenox but will hold for procedure Saturday Dispo-continued stay, PT/OT consults needed after kyphoplasty Admission and Anticipated Discharge Date Admission Date: May 06, 2022 Subjective Feeling ok today as long as he doesn't move around too much. Pain in lower back controlled with mostly po oxycodone but did take some IV dilaudid today. No BM today Denies CP, SOB Review of Systems Review of Systems: All systems reviewed & are unremarkable except as noted in HPI & below Physical Exam Constitutional: WD/WN, vitals as above Eyes: + anicteric sclerae Neck: trachea midline, no thyromegaly Respiratory: normal respiratory effort, lungs clear to auscultation Cardiovascular: RRR, no murmur, no edema Chest (Breasts): Chest: normal inspection of chest Gastrointestinal (Abdomen): normal bowel sounds, soft, nontender, no hepatosplenomegaly Musculoskeletal: Extremities: + extremities abnormal to inspection (bilat foot drop), no cyanosis and no clubbing Skin: no rashes, warm and dry Neurologic: moves all extremities, + focal motor deficit (bilat foot drop,4/5 strength throughout LEs) and awake Psychiatric: A+Ox3, euthymic affect Results & Data Results & Data ([facility]) Vital Signs (Past 12 Hours) Vital Signs Temp Pulse Resp BP Pulse Ox O2 Del Method 05/06/22 15:01 37.0 C 86 16 128/72 94 Room Air Laboratory Results 05/06/22 05/06/22 05/06/22 Range/Units 17:08 12:13 08:15 POC Glucose 172 H 248 H 98 (70-99) mg/dl 05/05/22 Range/Units 20:23 POC Glucose 145 H (70-99) mg/dl PG Care Time/CCT Total # of Minutes Spent Total Time Spent with Patient: Total time spent is greater than 50% in coordination of care (as documented) at patient's floor/unit and/or counseling patient: Coding Level of Care Code 59297 Subseq Hosp Care Lvl 2 Diagnoses Burst fracture of lumbar vertebra S32.001A Constipation K59.00 Type 1 diabetes mellitus on insulin therapy E10.9 Cellulitis L03.90 Hypercholesterolemia E78.00 Hypertension I10 Polymyositis-dermatomyositis M33.90 Chest pain R07.9 Insomnia G47.00
[2022-05-06] MEDS: ZOLPIDEM TARTRATE 5 MG TAB PO SCH (22:28)
[2022-05-06] MEDS ORDERED: D5W AND LACTATED RINGERS 1,000 ML IV SCH (23:59)
[2022-05-07] MEDS: oxyCODONE HCL IR 5 MG TAB (IMMEDIATE RELEASE) PO PRN ×2 (03:08→08:28)
[2022-05-07] MEDS: INSULIN ASPART PER UNIT SC SCH ×4 (06:24→21:04)
[2022-05-07] MEDS: EZETIMIBE 10 MG TABLET PO SCH (08:28)
[2022-05-07] MEDS: predniSONE 1 MG TAB PO SCH (08:28)
[2022-05-07] MEDS: SENNA 8.6 MG TAB PO SCH (08:29)
[2022-05-07] MEDS: lisinopril 5 MG TAB PO SCH (08:29)
[2022-05-07] MEDS: GABAPENTIN 300 MG CAP PO SCH ×2 (08:30→21:04)
[2022-05-07] MEDS: predniSONE 5 MG TAB PO SCH (08:30)
[2022-05-07] MEDS: ACETAMINOPHEN 500 MG TAB PO SCH ×3 (08:30→21:03)
[2022-05-07] MEDS: CALCITONIN SALMON NA 200 IU/AC 3.7 ML BTL SCH (08:31)
[2022-05-07] MEDS: LIDOCAINE 5% 1 PATCH TD SCH (08:31)
[2022-05-07] MEDS: LANTUS PER UNIT CHARGE SQ SCH (08:40)
--- NOTE | 2022-05-07 12:14 | History & Physical Bridge Note ---
Date of Service May 07, 2022 History & Physical Bridge Note I have examined the patient, reviewed the History & Physical and in the interval since the performance of the History & Physical I have noted the following changes of clinical significance: no changes noted Kyphoplasty L1
[2022-05-07] MEDS ORDERED: EPINEPHrine INJ 1 MG/ML AMP ONE (12:43)
[2022-05-07] MEDS ORDERED: BUPIVACAINE 0.5 % 5 MG/1 ML MPF 30ML VIAL ONE (12:44)
[2022-05-07] MEDS ORDERED: ATROPINE SULFATE 0.1 MG/ML 10ML SYR IV PRN (12:46)
[2022-05-07] MEDS ORDERED: ePHEDrine sulfate 50 MG/ML AMP IV PRN (12:46)
[2022-05-07] MEDS ORDERED: ONDANSETRON INJ 2 MG/ML 2 ML VIAL IV PRN (12:46)
--- NOTE | 2022-05-07 12:49 | Anesthesiology Consultation ---
Date of Service May 07, 2022 Assessment & Plan (1) Encounter for pre-operative examination: Chart Review Chart Review: Acceptable Risk for Surgery and Patient NOT seen in Pre Admission Testing Patient on chronic steroid use. Will provide stress dosed steroids in OR (hydrocortisone). Patient also with myositis so will be cautious with neuromuscular relaxation (avoid succinylcholine) and will likely use sugammadex for reversal. Per hospitalist note: (8) Chest pain: Plan: had continuous chest pain all day on 05/04 that is persisting and 05/05 that is definitely MSK in nature, directly tender to palpation and worse with use of the pectoralis muscle. Strained left pectoralis muscle from trying to roll self over in bed Now much improved troponin neg x2 ECG no ischemic changes pain improved with IV dilaudid Do NOT suspect angina Consults Requested none History Surgery Operation Date: 05/07/22 12:00 Proposed Procedures p Kyphoplasty L1 - Jimmie Lester DO Height/Weight Height: 5 ft 10 in Weight: 113.6 kg Allergies Allergy/AdvReac Type Severity Reaction Status Date / Time mercaptopurine AdvReac Severe JAUNDICE Verified 05/03/22 23:10 Medications Home Medications Medication Instructions Recorded Confirmed Last Taken multivitamin (Daily Multi-Vitamin 1 tab PO QAM 03/04/19 05/03/22 04/28/22 tablet) blood sugar diagnostic (OneTouch #10 ea 04/01/19 05/03/22 Unknown Ultra Blue Test Strip) vedolizumab 300 mg intravenous 300 mg IV Q8WK 04/01/19 05/03/22 09/02/20 solution diphenoxylate-atropine 2.5 1 tab PO QID PRN diarrhea #360 tabs 07/20/19 05/03/22 Unknown mg-0.025 mg tablet CPAP Supplies #1 ea 10/08/19 05/03/22 Unknown duloxetine 60 mg capsule,delayed 60 mg PO QPM 03/01/20 05/03/22 04/27/22 release flash glucose scanning reader #1 ea 06/21/20 05/03/22 Unknown (FreeStyle [place] 14 Day [place]) prednisone 5 mg tablet 10 mg PO QAM #90 tabs 05/19/21 05/03/22 04/28/22 trazodone 100 mg tablet 100 mg PO HS #90 tabs 09/05/03/22 04/27/22 insulin aspart See Rx Instructions subcut 08/07/21 05/03/22 04/28/22 12:00 (niacinamide)(U-100) 100 unit/mL(3 .COMPLEX 90 days #100 mL mL) subcutaneous pen (Fiasp FlexTouch U-100 Insulin) lisinopril 5 mg tablet 5 mg PO QAM #90 tabs 11/06/21 05/03/22 04/28/22 flash glucose sensor (FreeStyle #2 ea 12/12/21 05/03/22 Unknown [place] 14 Day Sensor kit) zolpidem 12.5 mg tablet,extended 12.5 mg PO HS PRN insomnia #30 tabs 02/13/22 05/03/22 Unknown release,multiphase pen needle, diabetic 32 gauge x #500 ea 03/12/22 05/03/22 Unknown 5/32" (BD Ultra-Fine [place] Pen Needle) gabapentin 300 mg capsule 300 mg PO BID #180 caps 03/15/22 05/03/22 04/28/22 08:00 ezetimibe 10 mg tablet 10 mg PO DAILY 04/28/22 05/03/22 04/28/22 hydrocodone 5 mg-acetaminophen 325 1 tab PO Q6H PRN Pain 04/28/22 05/03/22 04/28/22 mg tablet insulin glargine 100 unit/mL (3 65 unit subcut QPM 04/28/22 05/03/22 04/27/22 mL) subcutaneous pen (Basaglar KwikPen U-100 Insulin) acetaminophen 500 mg tablet 1,000 mg PO TID #30 tabs 05/02/22 05/03/22 Unknown (Tylenol Extra Strength) calcitonin (salmon) 200 1 spray NA DAILY #3.7 mL 05/02/22 05/03/22 Unknown unit/actuation nasal spray cephalexin 500 mg capsule 500 mg PO TID 3 days #9 caps 05/02/22 05/03/22 Unknown cyanocobalamin (vitamin B-12) 1,000 mcg PO DAILY #30 tabs 05/02/22 05/03/22 Unknown 1,000 mcg tablet diclofenac sodium 1 % topical gel 4 g EXT QID PRN joint pain #100 05/02/22 05/03/22 Unknown (Voltaren Arthritis Pain) grams doxycycline hyclate 100 mg capsule 100 mg PO BID 3 days #6 caps 05/02/22 05/03/22 Unknown lidocaine 5 % topical patch 1 patch transdermal QAM #30 ea 05/02/22 05/03/22 Unknown tamsulosin 0.4 mg capsule 0.4 mg PO HS #14 caps 05/02/22 05/03/22 Unknown Active Medications Generic Name Dose Route Start Last Admin Trade Name Freq PRN Reason Stop Dose Admin Acetaminophen 1,000 mg 05/04/22 09:00 05/07/22 08:30 Acetaminophen 500 Mg Tab PO 06/03/22 08:59 1,000 mg TID WAQAR Administration Bisacodyl 10 mg 05/04/22 03:17 05/05/22 11:35 Bisacodyl 10 Mg Supp AR 06/03/22 03:16 10 mg DAILY PRN Administration Constipation Calcitonin [place] 1 sprays 05/04/22 09:00 05/07/22 08:31 Calcitonin [place] Na 200 Iu/Ac 3.7 Ml Btl NA 06/03/22 08:59 1 sprays DAILY WAQAR Administration Diclofenac Sodium 4 gm 05/04/22 03:17 05/04/22 04:29 Diclofenac Sod 1% Gel 100 Gm Tube EXT 06/03/22 03:16 4 gm QID PRN Administration joint pain/back Protocol Duloxetine HCl 60 mg 05/04/22 21:00 05/06/22 19:44 Duloxetine Hcl 60 Mg Cap PO 06/03/22 20:59 60 mg QPM WAQAR Administration Ezetimibe 10 mg 05/04/22 09:00 05/07/22 08:28 Ezetimibe 10 Mg Tablet PO 06/03/22 08:59 10 mg DAILY WAQAR Administration Gabapentin 300 mg 05/04/22 09:00 05/07/22 08:30 Gabapentin 300 Mg Cap PO 06/03/22 08:59 300 mg BID WAQAR Administration Hydromorphone HCl 0.5 mg 05/05/22 08:38 05/06/22 22:28 Hydromorphone Inj 0.5 Mg/0.5 Ml Syr IV 05/18/22 07:53 0.5 mg Q4 PRN Administration moderate-severe Pain Insulin Aspart 0 units 05/06/22 16:30 05/07/22 12:15 Insulin Aspart Per Unit SC 06/03/22 07:29 6 units 1130,1630,2100 WAQAR Administration Insulin Aspart 0 units 05/07/22 07:30 05/07/22 06:24 Insulin Aspart Per Unit SC 06/06/22 07:29 1 units 0730 WAQAR Administration Insulin Glargine 30 units 05/06/22 09:00 05/07/22 08:40 Lantus Per Unit Charge SQ 06/05/22 08:59 30 units DAILY WAQAR Administration Lidocaine 1 patch 05/04/22 09:00 05/07/22 08:31 Lidocaine 5% 1 Patch TD 06/03/22 08:59 Not Given QAM WAQAR Lisinopril 5 mg 05/04/22 09:00 05/07/22 08:29 Lisinopril 5 Mg Tab PO 06/03/22 08:59 5 mg QAM WAQAR Administration Miscellaneous 1 each 05/04/22 21:00 05/06/22 19:45 Remove Lidoderm Patch N/A 06/03/22 20:59 Not Given DAILY@2100 [facility] Oxycodone HCl 5 mg 05/05/22 17:04 05/07/22 08:28 Oxycodone Hcl Ir 5 Mg Tab (Immediate Release) PO 05/19/22 17:03 5 mg Q4H PRN Administration moderate -severe Pain Polyethylene Glycol 17 gm 05/04/22 03:17 05/04/22 13:07 Polyethylene (Miralax) 17 Gm Pack PO 06/03/22 03:16 17 gm DAILY PRN Administration Constipation Prednisone 15 mg 05/05/22 09:00 05/07/22 08:30 Prednisone 5 Mg Tab PO 06/04/22 08:59 15 mg DAILY WAQAR Administration Prednisone 2 mg 05/05/22 09:00 05/07/22 08:28 Prednisone 1 Mg Tab PO 06/04/22 08:59 2 mg DAILY WAQAR Administration Sennosides 8.6 mg 05/04/22 09:00 05/07/22 08:29 Senna 8.6 Mg Tab PO 06/03/22 08:59 8.6 mg QAM WAQAR Administration Tamsulosin HCl 0.4 mg 05/04/22 21:00 05/06/22 19:45 Tamsulosin Hcl 0.4 Mg Cap PO 06/03/22 20:59 0.4 mg HS WAQAR Administration Trazodone HCl 100 mg 05/04/22 21:00 05/06/22 19:44 Trazodone Hcl 100 Mg Tab PO 06/03/22 20:59 100 mg HS WAQAR Administration Zolpidem Tartrate 5 mg 05/05/22 21:00 05/06/22 22:28 Zolpidem Tartrate 5 Mg Tab PO 06/04/22 20:59 5 mg HS WAQAR Administration NPO Date Last Intake of Fluids: 05/06/22 Time Last Intake of Fluids: 23:55 Date Last Intake of Solids: 05/06/22 Time Last Intake of Solids: 23:55 Past Medical History Medical History Chronic back pain Chronic steroid use Crohn's disease Diverticulosis Dysfunction of right eustachian tube Elevated hemoglobin A1c History of intestinal obstruction History of migraine HLD (hyperlipidemia) HTN (hypertension) Inclusion body myositis Follows with [facility] Mixed conductive and sensorineural hearing loss of right ear with restricted hearing of left ear Osteoarthritis Polymyositis-dermatomyositis Sleep apnea CPAP Statin myopathy Type 1 diabetes mellitus on insulin therapy Wheelchair bound Exercise / Class Metabolic Activity IV < 2 Limit ADL/Bedbound Past Family History Family History Unknown Breast cancer Father Diabetes Father Hearing loss Stroke Mother Hypertension Cancer Heart disease Other Allergies No family history of adverse response to anesthesia No family history of bleeding disorder Denies family history of Ovarian cancer Prostate cancer Myocardial infarction Colorectal cancer Past Surgical History Surgical History History of biopsy muscle History of cholecystectomy History of colonoscopy History of esophagogastroduodenoscopy (EGD) History of incision and drainage (2016) I&D of sebaceous cyst right upper back History of intestinal surgery History of surgery (2017) epidermal cyst excision History of wisdom tooth extraction Social History Smoking Status: Former smoker tobacco type: cigarettes Do You Dip or Chew Tobacco: No Smoking End Date: 40 years Hx Alcohol Use: No Hx Substance Use: No substance use type: does not use Physical Exam Vital Signs Last Vital Signs Temp 36.9 C 05/07/22 12:23 Pulse 82 05/07/22 12:23 Resp 20 05/07/22 12:23 BP 145/86 H 05/07/22 12:23 Pulse Ox 98 05/07/22 12:23 O2 Del Method 05/07/22 12:23 Testing Laboratory Results 05/05/22 07:18 05/05/22 07:18 Urine Color Yellow 05/04/22 00:49 Urine Appearance Clear (Clear) 05/04/22 00:49 Urine pH 6.5 (4.5-7.5) 05/04/22 00:49 Ur Specific [place] 1.016 (1.000-1.030) 05/04/22 00:49 Urine Protein Negative (Negative) 05/04/22 00:49 Urine Glucose (UA) Negative (Negative) 05/04/22 00:49 Urine Ketones Trace (Negative) H 05/04/22 00:49 Urine Nitrite Negative (Negative) 05/04/22 00:49 Ur Leukocyte Esterase Negative (Negative) 05/04/22 00:49 05/07/22 05/07/22 12:07 06:11 POC Glucose 204 H 149 H Electrocardiogram Date: 05/04/22 DICTATED BY:Jun Lao MD Test Reason : Blood Pressure : / mmHG Vent. Rate : 063 BPM Atrial Rate : 063 BPM P-R Int : 154 ms QRS Dur : 090 ms QT Int : 422 ms P-R-T Axes : 044 -04 059 degrees QTc Int : 431 ms Normal sinus rhythm Minimal voltage criteria for LVH, may be normal variant Borderline ECG When compared with ECG of 11-JUL-2017 17:21, No significant change was found Confirmed by Jun Lao ([id number]) on 05/04/2022 10:50:10 AM
[2022-05-07] MEDS ORDERED: SUGAMMADEX SODIUM 200 MG/2 ML VIAL IV ONE (13:07)
[2022-05-07] MEDS ORDERED: ceFAZolin 2000MG 2,000 MG/15 ML SYR IV ONE (13:49)
--- NOTE | 2022-05-07 13:52 | Pharmacy Report ---
Pharmacy Glycemic Short Note 2 - Date of Service May 07, 2022 - Glycemic Short BSG Results (Last 24 hours): 05/06/22 05/06/22 05/07/22 17:08 20:47 06:11 POC Glucose 172 H 130 H 149 H 05/07/22 12:07 POC Glucose 204 H OUTPATIENT ANTIDIABETIC REGIMEN: * Novolog Aspart 38 units at breakfast, 34 units at lunch, 38 units at dinner * Basaglar 65 units QPM HbA1c: 6.1% (04/16/22) ASSESSMENT: 05/07/22 * Lunch BSG improved with tightened AM parameters, however still elevated, continue same for now and monitor trend * Fasting BSG 149 mg/dL, will continue same for now, consider increase in basal if trend continues upward tomorrow 05/06/22 * BSGs reasonably controlled yesterday, except for 225 mg/dL at lunchtime * Fasting BSG of 98 mg/dL this morning - plan to continue current basal * Will give basal with prednisone this morning in attempt to limit hyperglycemic effects of steroid * steroids have been tapered down to 17 mg PO daily 05/04/22 * 61 y/o M admitted for increased back pain and difficulty ambulating since being discharged home two days ago from here. Patient would like rehab placement. * He is a Type 1 diabetic, on basal and bolus insulin at home. * Last admission, he required around 45 units of basal and 52 units bolus (on 05/01/22) which resulted in fasting BSG of 80 mg/dl on 05/02/22. * Basal insulin was further reduced to 35 units nightly on discharge. It does not look like he took his basal insulin dose last night due to admission, so basal Lantus 30 units was given early today morning around 4 AM. * Plan to resume nightly basal insulin tonight. Will add a scale of basal insulin at HS tonight based on BSG. * Patient had been on higher dose of Prednisone on his last admission (40 mg then 30 mg). Today Prednisone dose reduced to 20 mg then 17 mg daily tomorrow. * Started with looser Novolog parameters yesterday night compared to last admission. PLAN FOR INPATIENT GLYCEMIC CONTROL: * Basal insulin * Lantus 30 units SQ with prednisone 17 mg PO daily * Bolus insulin * NovoLog per scale ACHS or Q6hrs while NPO * Goal Range: Low 110 mg/dL - High 150 mg/dL * Correction Factor: 10 mg/dL/unit with breakfast; 12 mg/dL/unit lunch, dinne r, HS * Nutritional / Prandial insulin per carb ratio of 1 unit per 3 grams CHO at breakfast; 4 grams CHO consumed with lunch, dinner, HS
--- NOTE | 2022-05-07 14:06 | Operative Report ---
Post Operative Report Pre & Post Diagnosis Operation Date: 05/07/22 12:00 Pre-Op Diagnosis: L1 burst fracture Post-Op Diagnosis: Same I identified the patient and participated in the time-out.: Yes Procedure Operation Date: 05/07/22 12:00 Actual Procedures #1 kyphoplasty of L1 vertebral body. #2 L1 vertebral body. Surgeon Jimmie Lester, DO Commissioner Of Officials None Estimated Blood Loss 10 Findings Consistent with Post-Op Diagnosis Specimens L1 vertebral body biopsy Indications This is a 61-year-old male presents above-mentioned diagnosis after failing course of nonoperative care and worsening back pain is here for the above- mentioned procedure. Description of Procedure Patient was met with identified informed consent obtained. Patient was then taken to the operative suite underwent a patient placed in a prone position the Thomas table chest padded bolsters. All bony prominences well-padded eyes inspected to ensure no external pressure placed upon the. This point the thoracolumbar spine was prepped and draped normal sterile fashion. The assistance of fluoroscopy in AP and lateral planes identified the L1 pedicle 2 small incisions were placed just lateral to the pedicles and 2 Kyphon working cannulas were placed by way of a transpedicular approach into the L1 vertebral body. 2 core biopsies were then obtained. And then inserted to 20 mm Kyphon balloons directly within the vertebral body. They were sequentially inflated with fluoroscopic visualization. The balloons were subsequently removed and I injected approximately 6 cc of Kyphon cement directly into the vertebral body with the assistance of fluoroscopic visualization. Demonstrated excellent interdigitation and fill. The working cannulas were removed and the small incisions closed with Monocryl and sterile dressings placed. Patient was then awakened taken to PACU stable condition. I attest to the content of the Intraoperative Record and any orders documented therein. Any exceptions are noted below.
[2022-05-07] MEDS: fentaNYL citrate 100 MCG/2 ML VIAL IV PRN ×4 (14:30→14:48)
--- NOTE | 2022-05-07 14:48 | Anesthesiology Progress Note ---
Date of Service May 07, 2022 Anesthesia Post Procedure Vital Signs Vital Signs: Temp Pulse Pulse Resp BP Pulse Ox O2 Del Method 05/07/22 14:20 36.1 C L 84 14 161/78 H 100 Oxymask 05/07/22 12:23 36.9 C 82 20 145/86 H 98 Room Air 05/07/22 07:44 36.6 C 76 16 133/78 96 Room Air 05/06/22 22:14 36.7 C 80 18 133/70 94 Room Air 05/06/22 15:01 37.0 C 86 16 128/72 94 Room Air O2 Flow Rate 05/07/22 14:20 7 05/07/22 12:23 05/07/22 07:44 05/06/22 22:14 05/06/22 15:01 Pain Intensity Back: Pain Intensity: 9 Transfer of Care Handoff Completed per policy Notes Mental Status: alert / awake / arousable and participated in evaluation Patient Amnestic to Procedure: Yes Nausea / Vomiting: adequately controlled Pain: adequately controlled Airway Patency, RR, SpO2: stable & adequate BP & HR: stable & adequate Hydration State: stable & adequate Anesthetic Complications: no major complications apparent and Pt Satisfied with anesthetic care
--- NOTE | 2022-05-07 14:51 | Fluoroscopy Report ---
FL lumbar spine 2-3V CLINICAL HISTORY: L1 KYPHOPLASTY COMPARISON STUDY: Lumbar spine CT May 04, 2022. FLUOROSCOPY TIME: 115 seconds. FLUOROSCOPIC IMAGES: 3 FINDINGS: Fluoroscopy was provided during L1 kyphoplasty. Methylmethacrylate is noted within the L1 v ertebral body. IMPRESSION: Fluoroscopy provided during L1 kyphoplasty. ACT 112: Negative or not required by law. Electronically signed by: Dilip Barahona M.D. 05/07/2022 2:50 PM
[2022-05-07] MEDS: HYDROmorphone INJ 1 MG/ML SYRINGE IV PRN ×3 (14:58→15:11)
[2022-05-07] MEDS: POLYETHYLENE (MIRALAX) 17 GM PACK PO PRN (17:46)
--- NOTE | 2022-05-07 17:48 | Hospitalist Progress Note ---
Date of Service May 07, 2022 Assessment & Plan (1) Burst fracture of lumbar vertebra: Plan: 61-year-old male with history of polymyositisdermatomyositis on chronic steroids, type 1 diabetes, hypertension and hyperlipidemia with recent hospitalization at [facility] from 04/28/2022 through 05/02/2022 following a ground-level fall in the shower resulting in an L1 burst fracture. Patient was managed conservatively with pain control as well as TLSO brace and was discharged home on 05/02/2022. He has had worsening back pain and difficulty with ambulation since returning home therefore, he returns to the hospital requesting placement at rehab. No falls since returning home. No fevers, chills. No neurological deficits Pain is all across lower back, not at level of L1. Mostly with pain over left SI joint No worsening focal weakness over baseline (bilat foot drop, etc.) -consulted Ortho Spine for further eval--> ordered Lumbar Spine CT which showed further compression of the L1 fracture which he believes is contributing to the pain -now s/p kyphoplasty on 05/07 continue scheduled Tylenol 1 g p.o. 3 times daily, oxycodone 5 mg p.o. every 4 hours and IV Dilaudid 0.5 mg IV every 4 hours as needed for breakthrough pain Continue Lidoderm patch and topical diclofenac gel Continue home gabapentin 300 mg p.o. twice daily Continue home duloxetine 60 mg p.o. every afternoon Continue home calcitonin spray Patient may continue to wear his TLSO brace while out of bed -will need repeat PT/OT evals after kyphoplasty to see if needs SNF vs going home-he does not think he can do acute rehab/3 hrs a day of rehab (2) Constipation: Plan: with significant constipation due to recent opioid use Finally had multiple large bowel movements on 05/05 after 5 to 6 days of constipation-this was after receiving oral laxatives as well as a fleets enema and manual disimpaction Dulcolax [address] daily as needed Magnesium hydroxide as needed MiraLAX as needed Senna 8.6 mg p.o. daily (3) Type 1 diabetes mellitus on insulin therapy: Plan: Chronic. Last hemoglobin A1c = 6.1% in March. Patient had some a.m. hypoglycemia during his last hospital stay Continue Lantus and NovoLog Glycemic management consultation appreciated (4) Cellulitis: Plan: Patient was treated for a lower extremity cellulitis during his hospital stay. He was discharged on Keflex and doxycycline and completed course on May 05. Cellulitis now completely resolved (5) Hypercholesterolemia: Plan: Chronic. Patient is statin intolerant Continue Zetia 10 mg p.o. daily (6) Hypertension: Plan: Blood pressures are normal here Continue lisinopril 5 mg p.o. every morning Continue to monitor (7) Polymyositis-dermatomyositis: Plan: Patient on chronic longstanding steroids. Presently on prednisone 17 mg p.o. daily. Completed a burst and taper last admission (8) Chest pain: Plan: had continuous chest pain all day on 05/04 that is persisting and 05/05 that is def initely MSK in nature, directly tender to palpation and worse with use of the pectoralis muscle. Strained left pectoralis muscle from trying to roll self over in bed Now resolved troponin neg x2 ECG no ischemic changes pain improved with IV dilaudid Do NOT suspect angina (9) Insomnia: Plan: continue Ambien, trazodone Plan DVT prophylaxis- Lovenox but then held for procedure Dispo-continued stay, PT/OT consults needed after kyphoplasty to see if can go home vs SNF Admission and Anticipated Discharge Date Admission Date: May 06, 2022 Subjective Pt having some pain in lower back since returning from kyphoplasty but otherwise doing ok. Asking for laxatives to keep constipation from returning again Review of Systems Review of Systems: All systems reviewed & are unremarkable except as noted in HPI & below denies CP, SOB, nausea. Is eating his dinner Physical Exam Constitutional: WD/WN, vitals as above Eyes: + anicteric sclerae Neck: trachea midline, no thyromegaly Respiratory: normal respiratory effort, lungs clear to auscultation Cardiovascular: RRR, no murmur, no edema Chest (Breasts): Chest: normal inspection of chest Gastrointestinal (Abdomen): normal bowel sounds, soft, nontender, no hepatosplenomegaly Musculoskeletal: Extremities: + extremities abnormal to inspection (bilat foot drop), no cyanosis and no clubbing Skin: no rashes, warm and dry Neurologic: moves all extremities, + focal motor deficit (bilat foot drop,4/5 strength throughout LEs) and awake Psychiatric: A+Ox3, euthymic affect Results & Data Results & Data ([facility]) Vital Signs (Past 12 Hours) Vital Signs Temp Pulse Pulse Resp BP Pulse Ox O2 Del Method 05/07/22 16:45 36.8 C 78 16 133/78 96 Room Air 05/07/22 16:13 36.8 C 73 16 147/79 H 99 Room Air 05/07/22 15:45 36.8 C 74 16 153/80 H 99 Room Air 05/07/22 15:30 73 18 151/78 H 99 Room Air 05/07/22 15:20 76 19 149/77 H 96 Room Air 05/07/22 15:10 73 20 149/79 H 97 Room Air 05/07/22 14:40 82 17 160/77 H 97 Room Air 05/07/22 15:00 36.4 C L 70 22 155/80 H 99 Room Air 05/07/22 14:50 78 16 160/77 H 99 Room Air 05/07/22 14:30 82 18 146/91 H 97 Room Air 05/07/22 14:20 36.1 C L 84 14 161/78 H 100 Oxymask 05/07/22 12:23 36.9 C 82 20 145/86 H 98 Room Air 05/07/22 07:44 36.6 C 76 16 133/78 96 Room Air O2 Flow Rate 05/07/22 16:45 05/07/22 16:13 05/07/22 15:45 05/07/22 15:30 05/07/22 15:20 05/07/22 15:10 05/07/22 14:40 05/07/22 15:00 05/07/22 14:50 05/07/22 14:30 05/07/22 14:20 7 05/07/22 12:23 05/07/22 07:44 Laboratory Results 05/07/22 05/07/22 05/07/22 Range/Units 17:20 14:22 12:07 POC Glucose 227 H 186 H 204 H (70-99) mg/dl 05/07/22 05/06/22 Range/Units 06:11 20:47 POC Glucose 149 H 130 H (70-99) mg/dl PG Care Time/CCT Total # of Minutes Spent Total Time Spent with Patient: Total time spent is greater than 50% in coordination of care (as documented) at patient's floor/unit and/or counseling patient: Coding Level of Care Code 68976 Subseq Hosp Care Lvl 1 Diagnoses Burst fracture of lumbar vertebra S32.001A Constipation K59.00 Type 1 diabetes mellitus on insulin therapy E10.9 Cellulitis L03.90 Hypercholesterolemia E78.00 Hypertension I10 Polymyositis-dermatomyositis M33.90 Chest pain R07.9 Insomnia G47.00
[2022-05-07] MEDS: TAMSULOSIN HCL 0.4 MG CAP PO SCH (21:04)
[2022-05-07] MEDS: DULoxetine HCL 60 MG CAP PO SCH (21:04)
[2022-05-07] MEDS: traZODone HCL 100 MG TAB PO SCH (23:03)
[2022-05-07] MEDS: ZOLPIDEM TARTRATE 5 MG TAB PO SCH (23:03)
[2022-05-08] MEDS: ACETAMINOPHEN 500 MG TAB PO SCH ×3 (08:19→21:16)
[2022-05-08] MEDS: predniSONE 5 MG TAB PO SCH (08:19)
[2022-05-08] MEDS: GABAPENTIN 300 MG CAP PO SCH ×2 (08:19→21:16)
[2022-05-08] MEDS: lisinopril 5 MG TAB PO SCH (08:20)
[2022-05-08] MEDS: CALCITONIN SALMON NA 200 IU/AC 3.7 ML BTL SCH (08:20)
[2022-05-08] MEDS: predniSONE 1 MG TAB PO SCH (08:20)
[2022-05-08] MEDS: SENNA 8.6 MG TAB PO SCH (08:20)
[2022-05-08] MEDS: EZETIMIBE 10 MG TABLET PO SCH (08:20)
[2022-05-08] MEDS: LIDOCAINE 5% 1 PATCH TD SCH (08:21)
[2022-05-08] MEDS: INSULIN ASPART PER UNIT SC SCH ×4 (09:00→20:19)
[2022-05-08] MEDS: LANTUS PER UNIT CHARGE SQ SCH (09:00)
--- NOTE | 2022-05-08 11:03 | Orthopedic Progress Note ---
Date of Service May 08, 2022 Assessment & Plan (1) Burst fracture of lumbar vertebra: Plan: At this time encouraged him to undergo activity as tolerated. From an orthopedic standpoint he is stable for discharge. We will need to see him in our office in approximate 2 to 3 weeks for x-rays. Admission and Anticipated Discharge Date Admission Date: May 06, 2022 Subjective Patient's back pain is markedly improved. Physical Exam Physical Exam: On exam he sitting up in bed. He is comfortable. Results & Data ([facility]) Vital Signs (Past 12 Hours) Vital Signs Temp Pulse Resp BP Pulse Ox O2 Del Method 05/08/22 07:40 Room Air 05/08/22 07:16 36.5 C 67 14 148/84 H 98 Room Air 05/08/22 03:57 36.5 C 82 18 147/88 H 97 Room Air 05/07/22 23:08 36.7 C 73 18 152/81 H 98 Room Air
--- NOTE | 2022-05-08 20:44 | Hospitalist Progress Note ---
Date of Service May 08, 2022 Assessment & Plan (1) Burst fracture of lumbar vertebra: Plan: POD#1 s/p kyphoplasty on 05/[address] Chito Lester doing wonderfully post-op pain MUCH improved continue scheduled Tylenol 1 g p.o. 3 times daily, oxycodone 5 mg p.o. every 4 hours prn and IV Dilaudid 0.5 mg IV every 4 hours as needed for breakthrough pain Continue Lidoderm patch and topical diclofenac gel Continue home gabapentin 300 mg p.o. twice daily Continue home duloxetine 60 mg p.o. every afternoon Continue home calcitonin spray Patient may continue to wear his TLSO brace while out of bed PT, OT wants to attend [facility] rehab post-discharge (2) Constipation: Plan: resolved cont bowel maintenance (3) Type 1 diabetes mellitus on insulin therapy: Plan: Hemoglobin A1c = 6.1% in March. Continue Lantus and NovoLog. Pharmacy Glycemic management consultation appreciated. Control is excellent. (4) Cellulitis: Plan: Patient was treated for a RIGHT lower extremity cellulitis during his previous hospital stay. He was discharged on Keflex and doxycycline and completed course on May 05. Cellulitis resolved. (5) Hypercholesterolemia: Plan: patient is statin intolerant continue Zetia 10 mg p.o. 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 Presently on prednisone 17 mg p.o. daily. Completed a burst and taper last admission. Now with warm erythema of b/l feet over toes 1, 2 and 3. Related to polymyositis? Need for higher dose steroids? Will check with rheum ([facility]). (8) Chest pain: Plan: did not mention pain today resolved (9) Insomnia: Plan: continue Ambien, trazodone Plan DVT prophylaxis- Lovenox, but then held for kyphoplasty yesterday will check with Dr Lester about when DVT proph can be restarted dispo - [facility] Admission and Anticipated Discharge Date Admission Date: May 06, 2022 Subjective patient doing well back pain largely resolved he can move about in the bed without difficulty and without limitation he was OOB using his walker today and did decently - much better than previous strength in legs is about baseline or slightly less than baseline his only complaint is that when he stands he has "purple" appearing toes denies pain in his feet Review of Systems Review of Systems: gen - good appetite, good energy cv - no cp pulm - no dyspnea GI - no pain Physical Exam Physical Exam: gen - NAD, looks good mouth - MMM; no thrush neck - no JVD heart - RRR, s1 s2 lungs - CTA b/l abd - mildly distended, BS+, NT ext - trace-1+ edema b/l, pulses 2+ b/l, cap refill brisk b/l feet skin - toes 1, 2 and 3 b/l feet with warm erythema but no pain with palpation; no Raynaud's; toes 4/5 wnl mild erythema/stasis changes b/l shins but no cellulitis Results & Data Results & Data ([facility]) Vital Signs (Past 12 Hours) Vital Signs Temp Pulse Resp BP Pulse Ox O2 Del Method 05/08/22 14:56 37 C 79 16 139/79 98 Room Air 05/08/22 11:30 37.1 C 82 14 144/86 H 97 Room Air Laboratory Results Laboratory Results - last 24 hr 05/07/22 05/08/22 05/08/22 21:01 07:59 11:50 POC Glucose 109 H 108 H 132 H 05/08/22 05/08/22 17:00 20:15 POC Glucose 194 H 130 H PG Care Time/CCT Total # of Minutes Spent Total Time Spent with Patient: Total time spent is greater than 50% in coordination of care (as documented) at patient's floor/unit and/or counseling patient: Coding Level of Care Code 50545 Subseq Hosp Care Lvl 2 Diagnoses Burst fracture of lumbar vertebra S32.001A Constipation K59.00 Type 1 diabetes mellitus on insulin therapy E10.9 Cellulitis L03.90 Hypercholesterolemia E78.00 Hypertension I10 Polymyositis-dermatomyositis M33.90 Chest pain R07.9 Insomnia G47.00
[2022-05-08] MEDS: DULoxetine HCL 60 MG CAP PO SCH (21:16)
[2022-05-08] MEDS: TAMSULOSIN HCL 0.4 MG CAP PO SCH (21:17)
[2022-05-08] MEDS: traZODone HCL 100 MG TAB PO SCH (22:10)
[2022-05-08] MEDS: ZOLPIDEM TARTRATE 5 MG TAB PO SCH (22:10)
[2022-05-09] MEDS: oxyCODONE HCL IR 5 MG TAB (IMMEDIATE RELEASE) PO PRN (03:24)
[2022-05-09 06:29] LABS: Hematocrit (blood only) 48.5 % (40.1-51.0); Hemoglobin 16.7 g/dl (14.0-18.0); Mean Corpuscular Hemoglobin 29.4 pg (25.0-34.0); Mean Corpuscular Hgb Conc 34.4 g/dL (32.0-36.0); Mean Corpuscular Volume 85.4 fL (80.0-100.0); Mean Platelet Volume 10.3 fL (9.4-12.4); Platelet Count 263 K/uL (130-400); RDW Coefficient of Variation 13.5 % (11.5-14.5); RDW Standard Deviation 42.2 fL (36.4-46.3); Red Blood Count 5.68 M/uL (4.63-6.08); White Blood Count 11.35 K/ul (4.8-10.8)
[2022-05-09 06:55] LABS: Anion Gap 8 (3-11); BUN Creatinine Ratio 42.9 (10-20); Blood Urea Nitrogen 15 mg/dl (6-23); Calcium 8.8 mg/dl (8.5-10.1); Carbon Dioxide 25 mmol/L (21-32); Chloride 105 mmol/L (98-107); Creatinine Clr Calc Pharmacy 279.8 ml/min; Est GFR (African American) > 150.0 ml/min; Est GFR (Non-African American) 135.4 ml/min; Glucose 133 mg/dl (70-99(Fasting)); Magnesium 1.8 mg/dl (1.7-2.4); Potassium 3.6 mmol/L (3.5-5.1); Sodium 138 mmol/L (136-145)
[2022-05-09] MEDS: ACETAMINOPHEN 500 MG TAB PO SCH ×2 (08:39→13:52)
[2022-05-09] MEDS: CALCITONIN SALMON NA 200 IU/AC 3.7 ML BTL SCH (08:39)
[2022-05-09] MEDS: lisinopril 5 MG TAB PO SCH (08:40)
[2022-05-09] MEDS: predniSONE 1 MG TAB PO SCH (08:40)
[2022-05-09] MEDS: predniSONE 5 MG TAB PO SCH (08:40)
[2022-05-09] MEDS: GABAPENTIN 300 MG CAP PO SCH (08:40)
[2022-05-09] MEDS: LIDOCAINE 5% 1 PATCH TD SCH (08:41)
[2022-05-09] MEDS: EZETIMIBE 10 MG TABLET PO SCH (08:41)
[2022-05-09] MEDS: SENNA 8.6 MG TAB PO SCH (08:41)
[2022-05-09] MEDS: LANTUS PER UNIT CHARGE SQ SCH (08:47)
[2022-05-09] MEDS: INSULIN ASPART PER UNIT SC SCH ×2 (08:47→12:59)
[2022-05-09] MEDS ORDERED: ENOXAPARIN INJ 40 MG/0.4 ML SYR SQ ONE (13:02)
[2022-05-09 13:41] LABS: Lyme Ab IgG w/WB Rflx Negative (Negative)
[2022-05-09 13:42] LABS: Lyme Ab IgM w/WB Rflx Negative (Negative)
--- NOTE | 2022-05-09 15:43 | Discharge Summary ---
Date of Service May 09, 2022 Admission HPI Per Admitting Provider Edmundo Rodrigues is a 61-year-old male with history of polymyositisdermatomyositis, chronic muscle weakness, type 1 diabetes, hypertension and hyperlipidemia presenting with acute back pain. Patient was recently admitted to [facility] from 04/28/2022 through 05/02/2022 after falling in the shower and sustaining an L1 burst fracture. CT of the lumbar spine 04/28/2022 with L1 burst fracture, minimal loss of height and no retropulsion of fragments. Patient was evaluated by the [facility] service and had a TLSO brace placed. He was managed with Tylenol, hydrocodone as well as intranasal calcitonin. Patient is on chronic steroids for his dermatomyositis and has been slow tapering on an outpatient basis. His steroids were slightly increased during his hospital stay. Patient also treated for cellulitis of the right lower extremity with ceftriaxone and doxycycline and was discharged home to complete his course of Keflex and Doxylast day is to be 05/05/2022. Patient was considering rehab on discharge however opted to go home. Since returning home he reports progressive pain in his low back, now sharp in nature. He has had difficulty ambulating. He denies radiation into the buttocks or l egs, no worsening urinary retention. He has been constipated since his hospital stay. Discharge Exam gen - NAD, looks good mouth - MMM; no thrush neck - no JVD heart - RRR, s1 s2 lungs - CTA b/l abd - mildly distended, BS+, NT ext - trace-1+ edema b/l, pulses 2+ b/l, cap refill brisk b/l feet skin - toes 1, 2 and 3 b/l feet with warm erythema but no pain with palpation; no Raynaud's; toes 4/5 wnl mild erythema/stasis changes b/l shins but no cellulitis Discharge Data Allergies Allergy/AdvReac Type Severity Reaction Status Date / Time mercaptopurine AdvReac Severe JAUNDICE Verified 05/03/22 23:10 Consultations 05/04/22 01:09 ED Decision to Admit Stat 05/04/22 11:31 Consult Orthopedic Surgery Routine Procedures Performed Operation Date: 05/07/22 12:00 Actual Procedures p Kyphoplasty L1 - Jimmie Lester DO Ordered Studies 05/04/22 12:56 CT lumbar spine wo con Urgent 05/07/22 16:30 FL lumbar spine 2-3V Routine Hospital Course (1) Burst fracture of lumbar vertebra: POD#1 s/p kyphoplasty on 05/[address] Chito Lester doing wonderfully post-op pain MUCH improved continue scheduled Tylenol 1 g p.o. 3 times daily, oxycodone 5 mg p.o. every 4 hours prn and IV Dilaudid 0.5 mg IV every 4 hours as needed for breakthrough pain Continue Lidoderm patch and topical diclofenac gel Continue home gabapentin 300 mg p.o. twice daily Continue home duloxetine 60 mg p.o. every afternoon Continue home calcitonin spray Patient may continue to wear his TLSO brace while out of bed PT, OT wants to attend [facility] post-discharge (2) Constipation: resolved cont bowel maintenance (3) Type 1 diabetes mellitus on insulin therapy: Hemoglobin A1c = 6.1% in March. Continue Lantus and NovoLog. Pharmacy Glycemic management consultation appreciated. Control is excellent. (4) Cellulitis: Patient was treated for a RIGHT lower extremity cellulitis during his previous hospital stay. He was discharged on Keflex and doxycycline and completed course on May 05. Cellulitis resolved. (5) Hypercholesterolemia: patient is statin intolerant continue Zetia 10 mg p.o. daily (6) Hypertension: controlled cont lisinopril 5 mg daily (7) Polymyositis-dermatomyositis: Patient on chronic longstanding steroids. Presently on prednisone 17 mg p.o. daily. Completed a burst and taper last admission. Now with warm erythema of b/l feet over toes 1, 2 and 3. Related to polymyositis? Need for higher dose steroids? Will check with rheum ([facility] [facility]). (8) Chest pain: did not mention pain today resolved (9) Insomnia: continue Ambien, trazodone Plan DVT prophylaxis- Lovenox, but then held for kyphoplasty yesterday will check with Dr Lester about when DVT proph can be restarted dispo - [facility] Discharge Plan Discharge Items Patient Disposition: Transfer Inpatient Rehab Fac Reason For Visit: BACK PAIN Discharge Diagnosis: 1. L1 burst fracture s/p kyphoplasty procedure - 05/07/[address] Lester 2. Crohn's disease 3. polymyositis / dermatomyositis 4. type 1 diabetes 5. chronic steroid dependency for #3 6. abnormal-appearing toes - possibly due to dermatomyositis; possibly due to venous insufficiency; follow-up needed 7. rash on left knee region - negative Lyme testing Activity: Per Instructions section Lifting: No more than 5 pounds Bathing: No limitations Non-emergency contact: Primary Care Provider Call non-emergency contact if: you have any medication questions, your symptoms worsen, your pain is not controlled, your pain is worsening and you have a fever Follow-up/Referrals: Micheal Hathaway III, CRNP [Primary Care Provider] - 05/15/22 3:20 pm (APPOINTMENT WITH [facility]) Jimmie Lester DO [Surgeon] - (2-3 weeks; f/u from L1 kyphoplasty) Bettie Best MD, PhD [Physician] - (2-3 weeks if possible; f/u of polymyositis/dermatomyositis ) Diet: Carb Count or DM1 Addtl Attending Provider Instructions: Mr Rodrigues was hospitalized for severe back pain related to his L1 burst fracture. He is s/p kyphoplasty procedure of the L1 fracture by Dr Chito Lester on 05/07/22. Recommendations - 1. check BSGs ac/hs 2. follow-up appointments as listed in separate section 3. OK for lovenox or other chemical DVT prophylaxis starting 05/10/22 4. Prednisone dose is currently 17mg once daily; he has been instructed to taper the prednisone over several weeks per previous instructions from Dr Bettie Best - [facility] Pending Studies at Discharge: No Stand-Alone Forms: My [facility] Skilled Items Patient informed of condition?: Yes DNR: No Discharge Level of Care: Acute rehab Communicable Disease: No Discharge Prognosis: Stable Lines: None Urinary Catheter: No Medications and DC Order Prescriptions: New insulin aspart U-100 [Novolog U-100 Insulin aspart] 100 unit/mL Solution See Rx Instructions .ROUTE .COMPLEX Qty: 10 0RF Rx Instructions: supplemental sliding scale. BSG goal range 110-140. Correction factor 12. Carb ratio - 1 unit of novolog for every 4 grams of carbohydrates consumed. enoxaparin [Lovenox] 40 mg/0.4 mL Syringe 40 mg subcut QAM 14 Days Qty: 5.6 0RF triamcinolone acetonide 0.1 % cream 1 applic topical TID Qty: 30 0RF Rx Instructions: apply to rash on the front of both knees in thin amounts for 7 days. Continued (DME) FreeStyle [place] 14 Day [place] Misc See Rx Instructions .MEDSUPPLY Qty: 1 0RF Rx Instructions: Use to test blood glucose 4 times daily trazodone 100 mg tablet 100 mg PO HS Qty: 90 3RF lisinopril 5 mg tablet 5 mg PO QAM Qty: 90 3RF (DME) FreeStyle [place] 14 Day Sensor Kit See Rx Instructions .MEDSUPPLY Qty: 2 6RF Rx Instructions: Use to test blood glucose 4 times daily zolpidem 12.5 mg tablet,ext release multiphase 12.5 mg PO HS PRN (Reason: insomnia) Qty: 30 2RF (DME) pen needle, diabetic [BD Ultra-Fine Marsha Pen Needle] 32 gauge x 5/32" needle See Dose Instructions .ROUTE .MEDSUPPLY Qty: 500 1RF Rx Instructions: Use to inject insulin 4 times daily gabapentin 300 mg capsule 300 mg PO BID Qty: 180 1RF multivitamin [Daily Multi-Vitamin] tablet 1 tab PO QAM vedolizumab 300 mg recon soln 300 mg IV Q8WK (DME) OneTouch Ultra Blue Test Strip strip See Dose Instructions .ROUTE .MEDSUPPLY Qty: 10 Rx Instructions: TWICE DAILY diphenoxylate-atropine 2.5-0.025 mg tablet 1 tab PO QID PRN (Reason: diarrhea) Qty: 360 0RF (DME) CPAP Supplies [facility] See Rx Instructions .ROUTE .MEDSUPPLY Qty: 1 0RF Rx Instructions: CPAP supplies: headgear, hose/tubing, filters, all necessary supplies duloxetine 60 mg capsule,delayed release(DR/EC) 60 mg PO QPM hydrocodone-acetaminophen 5-325 mg tablet 1 tab PO Q6H PRN (Reason: Pain) tamsulosin 0.4 mg Capsule 0.4 mg PO HS Qty: 14 0RF diclofenac sodium [Voltaren Arthritis Pain] 1 % Gel 4 g EXT QID PRN (Reason: joint pain) Qty: 100 0RF Rx Instructions: please give tube from hospital calcitonin (salmon) 200 unit/actuation [place],Non-Aerosol 1 spray NA DAILY Qty: 3.7 0RF lidocaine 5 % Adhesive Patch,Medicated 1 patch transdermal QAM Qty: 30 0RF Rx Instructions: OTC cyanocobalamin (vitamin B-12) 1,000 mcg tablet 1,000 mcg PO DAILY Qty: 30 0RF Rx Instructions: OTC ezetimibe 10 mg tablet 10 mg PO DAILY Rx Instructions: TAKE 1 TABLET DAILY Changed prednisone 5 mg tablet 17 mg PO QAM Qty: 90 0RF insulin glargine [Basaglar KwikPen U-100 Insulin] 100 unit/mL (3 mL) insulin pen 30 unit subcut QAM Qty: 15 0RF acetaminophen [Tylenol Extra Strength] 500 mg Tablet 1,000 mg PO BID Qty: 30 0RF Rx Instructions: OTC Discontinued Fiasp FlexTouch U-100 Insulin 100 unit/mL (3 mL) insulin pen See Rx Instructions subcut .COMPLEX 90 Days Qty: 100 3RF Rx Instructions: 38U at Breakfast, 34U at Lunch, 38U at supper; sliding scale subcut; doxycycline hyclate 100 mg Capsule 100 mg PO BID 3 Days Qty: 6 0RF cephalexin 500 mg Capsule 500 mg PO TID 3 Days Qty: 9 0RF Discharge Orders: Discharge Order (Routine); Ordered 05/09/22 Ordered By: Jesus Kyle/Other Patient Handouts: Kyphoplasty Admission Data Admit Date/Time: 05/06/22 12:34 Attending Provider: Jesus Ramírez Admit Provider: Dolores Queen Primary Care Provider: Micheal Hathaway III [facility] ; Joe Doss at [place] ; Beth Figueroa ; Jimmie Lester Coding Diagnoses Burst fracture of lumbar vertebra S32.001A Constipation K59.00 Type 1 diabetes mellitus on insulin therapy E10.9 Cellulitis L03.90 Hypercholesterolemia E78.00 Hypertension I10 Polymyositis-dermatomyositis M33.90 Chest pain R07.9 Insomnia G47.00
[2022-05-10] MEDS ORDERED: ENOXAPARIN INJ 40 MG/0.4 ML SYR SQ SCH (09:00)
== END 2022-05-09 16:45 | DRG 478 ==
LOC: ED 21:03 → 3E 21:03 → SUATTDRO 05-04 02:04 → 3E 05-04 02:45 → SUATTDRO 05-06 12:34
DX: Z87.891 Personal history of nicotine dependence; Y92.009 Unspecified place in unspecified non-institutional (private) residence as the place of occurrence of the external cause; Z88.8 Allergy status to other drugs, medicaments and biological substances; W19.XXXD Unspecified fall, subsequent encounter; Z99.3 Dependence on wheelchair; G47.00 Insomnia, unspecified; E78.00 Pure hypercholesterolemia, unspecified; K59.00 Constipation, unspecified; K50.90 Crohn's disease, unspecified, without complications; Z83.3 Family history of diabetes mellitus; R07.9 Chest pain, unspecified; Z79.52 Long term (current) use of systemic steroids; S32.012D Unstable burst fracture of first lumbar vertebra, subsequent encounter for fracture with routine healing; E10.9 Type 1 diabetes mellitus without complications; L03.115 Cellulitis of right lower limb; Z79.4 Long term (current) use of insulin; I10 Essential (primary) hypertension; M33.90 Dermatopolymyositis, unspecified, organ involvement unspecified

== ENCOUNTER 2022-05-24 11:23 | Observation (INO) ==
[2022-05-24] MEDS ORDERED: HYDROCODONE/ACETAMOPHEN 5/325MG TAB PO ONE (11:36)
--- NOTE | 2022-05-24 11:42 | Emergency Department Note ---
Impression & Plan Fall, Closed fracture of head of right radius, Closed supracondylar fracture of right elbow, Fracture of metatarsal of left foot, closed ED Provider Note NAME: GAL MEADE AGE: 61 SEX: M : 1960 ARRIVES VIA: Ambulance INFORMANT: Patient, ED PROVIDER(S): Teo Rankin DO CHIEF COMPLAINT: Elbow pain HPI: The patient is a 61-year-old male who presented to the emergency department for an evaluation of elbow pain The patient had a fall while he was at home. He has a history of muscle weakness in the past. The patient had a fall while he was at home injuring his right elbow left foot and also his lower back. He was seen previously for similar complaints. He had a compression fracture in his lumbar spine. The patient did not get a chance to take his pain medication prior to coming to the emergency department. He states the pain in his back is moderate pain is although is severe especially with any movement. The patient states he has pain over his inside of his left foot. This becomes worse with ambulation. He has no hip pain. He denies having any vomiting. He has no loss of consciousness. ROS: See above HPI for pertinent positives & negatives. A total of 10 systems reviewed and were otherwise negative. PAST MEDICAL HISTORY: See Below PAST SURGICAL HISTORY: See Below FAMILY HISTORY: See Below SOCIAL HISTORY: See Below HOME MEDICATIONS: See Below ALLERGIES: See Below VITALS: See Below PHYSICAL EXAMINATION: GENERAL: Patient is awake alert in no acute distress patient is resting comfortably and showing no signs of anxiety EYES: The conjunctivae are clear. The pupils are round and reactive. EARS, NOSE, MOUTH AND THROAT: The nose is without any evidence of any deformity. Mucous membranes are moist. Tongue is midline. NECK: The neck is nontender and supple. RESPIRATORY: Normal respiratory effort is noted there is no evidence of wheezing rhonchi or rales CARDIOVASCULAR: Regular rate and rhythm noted there no murmurs rubs or gallops normal S1 normal S2. GASTROINTESTINAL: The abdomen is soft. Abdomen is nontender. BACK: Low lumbar spine tenderness was noted to palpation. Range of motion appears to elicit pain but is intact. MUSCULOSKELETAL/EXTREMITIES: There is no evidence of gross deformity full range of motion is noted in the hips and shoulders. The patient does have pain with range of motion testing of the right elbow. There is palpable tenderness on the left great toe. SKIN: Skin was warm and dry. Pedal edema was noted bilaterally. The patient has a small abrasion to the inside of his left great toe. NEUROLOGIC: Patient is awake alert and oriented x3. MEDICAL DECISION MAKING: Is a 61-year-old male who presented to the emergency department after a fall. The the patient has a history of poor ambulation because of underlying muscle disorder. The patient had a recent fall where he had a compression fracture of his lumbar spine. Because of this the patient was admitted for inpatient rehab and was discharged on the approximate 1 week ago. The patient returns today after another fall. Suffered a supracondylar fracture to his right upper extremity as well as a radial head fracture. He also suffered multiple metatarsal fractures to his left foot. The patient will not likely be able to ambulate very well because of this. I discussed the patient's radiographic studies with him. He was treated with pain medication in the emergency department. The [facility] hospitalist was notified about the patient. I discussed the patient's condition with the on-call orthopedic physician for [facility] at the patient's request. Triage Nursing notes reviewed. Prior medical records reviewed Vital Signs: reviewed and remarkable for no significant abnormalities Differential diagnosis: Fracture, subluxation, dislocation, contusion, ligamentous injury, neurovascular, compartment syndrome, rhabdomyolysis, as well as other pathologies. ER treatment provided: See below Diagnostics interpreted by me: ECG: none Cardiac Monitoring: An order was placed for continuous cardiac monitoring. The monitor shows a rate of 75 bpm with sinus rhythm. Laboratory studies: As stated above and show below. Imaging studies: See below Consultation(s): I discussed this case with Dr. Barbour who is on for [facility]. Dr. Ma was notified about the patient. Past Med/Surg History Medical History Chronic back pain Chronic steroid use Crohn's disease Diverticulosis Dysfunction of right eustachian tube Elevated hemoglobin A1c Fall in home History of intestinal obstruction History of migraine HLD (hyperlipidemia) HTN (hypertension) Inclusion body myositis Follows with [facility] Rheumatology Mixed conductive and sensorineural hearing loss of right ear with restricted hearing of left ear Osteoarthritis Polymyositis-dermatomyositis Sleep apnea CPAP Statin myopathy Type 1 diabetes mellitus on insulin therapy Urinary retention Wheelchair bound Surgical History History of biopsy muscle History of cholecystectomy History of colonoscopy History of esophagogastroduodenoscopy (EGD) History of incision and drainage (2017) I&D of sebaceous cyst right upper back History of intestinal surgery History of surgery (2017) epidermal cyst excision History of wisdom tooth extraction Family History Unknown Breast cancer Father Diabetes Father Hearing loss Stroke Mother Hypertension Cancer Heart disease Other Allergies No family history of adverse response to anesthesia No family history of bleeding disorder Denies family history of Ovarian cancer Prostate cancer Myocardial infarction Colorectal cancer Social History Smoking Status: Former smoker Tobacco Type: Cigarettes Age Started Using Tobacco: 14; Age Quit Using Tobacco: 17; Second Hand Exposure: No; Hx Alcohol Use: No Hx Substance Use: No Preferred Language: Kyrgyz Communication Ability: Effective Visual Impairment: No Limitations Hearing Ability: Normal Desk Interviewer Required: No Beliefs That Will Affect Care: None marital status: Current Living Situation: Spouse current occupational status: employed current occupation: security How many Children do You have: 1 Feels Safe at Home: Yes Childhood Exposure to Second-Hand Smoke: Yes Diet Comment: regular caffeine: Yes during the past year weight has: remained stable Dental Care, Regularly: Yes Physical Activity Frequency: Does not Exercise Seatbelt Use: always Sunscreen Use: Yes Assistive Devices: CPAP, Walker and Wheelchair Allergies Allergies Allergy/AdvReac Type Severity Reaction Status Date / Time mercaptopurine AdvReac Severe JAUNDICE Verified 05/16/22 11:22 Home Meds Home Medications Medication Instructions Recorded Confirmed multivitamin (Daily Multi-Vitamin 1 tab PO QAM 03/04/19 05/16/22 tablet) blood sugar diagnostic (OneTouch #10 ea 04/01/19 05/16/22 Ultra Blue Test Strip) vedolizumab 300 mg intravenous 300 mg IV Q8WK 04/01/19 05/16/22 solution duloxetine 60 mg capsule,delayed 60 mg PO QPM 03/01/20 05/16/22 release ezetimibe 10 mg tablet 10 mg PO DAILY 04/28/22 05/16/22 hydrocodone 5 mg-acetaminophen 325 1 tab PO Q6H PRN Pain 04/28/22 05/16/22 mg tablet insulin glargine 100 unit/mL (3 65 unit subcut QAM 05/16/22 mL) subcutaneous pen (Basaglar KwikPen U-100 Insulin) Previous Rx's Medication Instructions Recorded diphenoxylate-atropine 2.5 1 tab PO QID PRN diarrhea #360 tabs 07/20/19 mg-0.025 mg tablet CPAP Supplies #1 ea 10/08/19 flash glucose scanning reader #1 ea 06/21/20 (FreeStyle [place] 14 Day [place]) lisinopril 5 mg tablet 5 mg PO QAM #90 tabs 11/06/21 flash glucose sensor (FreeStyle #2 ea 12/12/21 [place] 14 Day Sensor kit) zolpidem 12.5 mg tablet,extended 12.5 mg PO HS PRN insomnia #30 tabs 02/13/22 release,multiphase pen needle, diabetic 32 gauge x #500 ea 03/12/2232" (BD Ultra-Fine Marsha Pen Needle) gabapentin 300 mg capsule 300 mg PO BID #180 caps 03/15/22 diclofenac sodium 1 % topical gel 4 g EXT QID PRN joint pain #100 05/02/22 (Voltaren Arthritis Pain) grams acetaminophen 500 mg tablet 1,000 mg PO BID #30 tabs 05/09/22 (Tylenol Extra Strength) insulin aspart U-100 100 unit/mL See Rx Instructions .Route 05/09/22 subcutaneous solution (Novolog .COMPLEX #10 mL U-100 Insulin aspart) prednisone 5 mg tablet 17 mg PO QAM #90 tabs 05/09/22 trazodone 100 mg tablet 100 mg PO HS #90 tabs 05/23/22 Results & Data (ED) Vital Signs Vital Signs - 24 hr 05/24/22 11:31 05/24/22 14:00 05/24/22 14:00 Temperature 36.7 C Temperature Source Oral Pulse Rate 99 H Pulse Rate [Right Finger] 75 Pulse Rhythm Regular Pulse Rhythm [Right Finger] Regular Pulse Strength Normal Pulse Strength [Right Finger] Normal Respiratory Rate 19 18 Respiratory Effort / Characteristics Non-Labored Non-Labored Respiratory Depth Normal Normal Respiratory Pattern Regular Regular Blood Pressure 132/75 Blood Pressure [Left Arm] 139/79 Blood Pressure Mean 94 Blood Pressure Mean [Left Arm] 99 Blood Pressure Position Lying Blood Pressure Position [Left Arm] Lying Pulse Oximetry 98 99 Oxygen Delivery Method Room Air Room Air Room Air Sepsis Recent Fever Within 48 Hours No Sepsis New/Unexplained Change in Mental Status No Sepsis Action Taken by Nursing No Action Required Home Medications Current Medication List: was personally reviewed by me Laboratory Data Attestation: I reviewed the patient's lab results. Result diagrams: 05/24/22 14:18 05/24/22 14:18 Lab Results 05/24/22 05/24/22 05/24/22 Range/Units 14:15 14:18 14:18 WBC 16.51 H (4.8-10.8) K/ul RBC 5.62 (4.63-6.08) M/uL Hgb 16.7 (14.0-18.0) g/dl Hct 48.8 (40.1-51.0) % MCV 86.8 (80.0-100.0) fL MCH 29.7 (25.0-34.0) pg MCHC 34.2 (32.0-36.0) g/dL RDW Std Deviation 44.9 (36.4-46.3) fL RDW Coeff of Amy 14.0 (11.5-14.5) % Plt Count 286 (130-400) K/uL MPV 10.2 (9.4-12.4) fL Immature Gran % (Auto) 0.5 % Neut % (Auto) 87.0 % Lymph % (Auto) 7.3 % [place] % (Auto) 4.7 % Eos % (Auto) 0.2 % Baso % (Auto) 0.3 % Neut # (Auto) 14.36 H (1.4-6.5) K/uL Lymph # (Auto) 1.21 (1.2-3.4) K/uL [place] # (Auto) 0.77 (0.24-0.82) K/uL Eos # (Auto) 0.04 (0-0.50) K/uL Baso # (Auto) 0.05 (0-0.2) K/uL Immature Gran # (Auto) 0.08 H (0.00-0.02) K/uL Sodium 139 (136-145) mmol/L Potassium 4.1 (3.5-5.1) mmol/L Chloride 104 (98-107) mmol/L Carbon Dioxide 28 (21-32) mmol/L Anion Gap 7 (3-11) BUN 15 (6-23) mg/dl Creatinine 0.34 L (0.6-1.4) mg/dl Est Cr Clr Drug Dosing 284.2 ml/min Est GFR ( Amer) > 150.0 ml/min Est GFR (Non-Af Amer) 137.1 ml/min BUN/Creatinine Ratio 44.1 H (10-20) Glucose 147 H (70-99(Fasting)) mg/dl Calcium 8.7 (8.5-10.1) mg/dl Total Bilirubin 0.7 (0.2-1.0) mg/dl AST 31 (13-39) U/L ALT 58 H (7-52) U/L Alkaline Phosphatase 142 H (34-104) U/L Total Protein 5.9 L (6.0-8.3) gm/dl Albumin 3.7 (3.4-5.0) gm/dl Globulin 2.2 L (2.5-4.0) gm/dl Albumin/Globulin Ratio 1.7 (0.9-2) Lipase 32 (11-82) U/L Urine Color Yellow Urine Appearance Clear (Clear) Urine pH 5.5 (4.5-7.5) Ur Specific [place] 1.013 (1.000-1.030) Urine Protein Negative (Negative) Urine Glucose (UA) Negative (Negative) Urine Ketones Negative (Negative) Urine Blood Negative (Negative) Urine Nitrite Negative (Negative) Urine Bilirubin Negative (Negative) Urine Urobilinogen Negative (Negative) Ur Leukocyte Esterase Negative (Negative) SARS-CoV-2, RNA, NAAT (NEGATIVE) 05/24/22 Range/Units 14:18 WBC (4.8-10.8) K/ul RBC (4.63-6.08) M/uL Hgb (14.0-18.0) g/dl Hct (40.1-51.0) % MCV (80.0-100.0) fL MCH (25.0-34.0) pg MCHC (32.0-36.0) g/dL RDW Std Deviation (36.4-46.3) fL RDW Coeff of Amy (11.5-14.5) % Plt Count (130-400) K/uL MPV (9.4-12.4) fL Immature Gran % (Auto) % Neut % (Auto) % Lymph % (Auto) % [place] % (Auto) % Eos % (Auto) % Baso % (Auto) % Neut # (Auto) (1.4-6.5) K/uL Lymph # (Auto) (1.2-3.4) K/uL [place] # (Auto) (0.24-0.82) K/uL Eos # (Auto) (0-0.50) K/uL Baso # (Auto) (0-0.2) K/uL Immature Gran # (Auto) (0.00-0.02) K/uL Sodium (136-145) mmol/L Potassium (3.5-5.1) mmol/L Chloride (98-107) mmol/L Carbon Dioxide (21-32) mmol/L Anion Gap (3-11) BUN (6-23) mg/dl Creatinine (0.6-1.4) mg/dl Est Cr Clr Drug Dosing ml/min Est GFR ( Amer) ml/min Est GFR (Non-Af Amer) ml/min BUN/Creatinine Ratio (10-20) Glucose (70-99(Fasting)) mg/dl Calcium (8.5-10.1) mg/dl Total Bilirubin (0.2-1.0) mg/dl AST (13-39) U/L ALT (7-52) U/L Alkaline Phosphatase (34-104) U/L Total Protein (6.0-8.3) gm/dl Albumin (3.4-5.0) gm/dl Globulin (2.5-4.0) gm/dl Albumin/Globulin Ratio (0.9-2) Lipase (11-82) U/L Urine Color Urine Appearance (Clear) Urine pH (4.5-7.5) Ur Specific [place] (1.000-1.030) Urine Protein (Negative) Urine Glucose (UA) (Negative) Urine Ketones (Negative) Urine Blood (Negative) Urine Nitrite (Negative) Urine Bilirubin (Negative) Urine Urobilinogen (Negative) Ur Leukocyte Esterase (Negative) SARS-CoV-2, RNA, NAAT NEGATIVE (NEGATIVE) Administered Medications Discontinued Medications Hydrocodone Bitart/Acetaminophen (Hydrocodone/Acetamophen 5/325mg Tab) 1 tab PO ONE ONE Stop: 05/24/22 11:37 Last Admin: 05/24/22 11:45 Dose: 1 tab Documented By: AP Imaging Data Radiologist's Impression: Cervical Spine CT 05/24/22 11:36 CT SCAN OF THE CERVICAL SPINE CLINICAL HISTORY: Fall. COMPARISON STUDY: No priors. TECHNIQUE: CT scan of the cervical spine is performed from the skull base to the upper thoracic spine. Images are reviewed in the axial, sagittal, and coronal planes. IV contrast was not administered for this examination. A dose lowering technique was utilized adhering to the principles of ALARA. FINDINGS: Skeletal structures: The skeletal structures are osteopenic. There is no evidence of fracture or subluxation involving the cervical spine. Vertebral body height and alignment are maintained. There is straightening of the cervical lordosis. Small anterior osteophytes are seen throughout. The odontoid process and lateral masses are intact. The atlantoaxial articulation is preserved noting mild productive degenerative change. The spinous processes appear intact. There is mild multilevel facet arthropathy. Intervertebral discs: There is moderate disc space narrowing at C5-C6. Mild disc space narrowing is seen at the remaining cervical levels. Central canal: Grossly patent. Soft tissues: The prevertebral and paraspinous soft tissues are within normal limits. Mild atherosclerotic calcification is noted in the carotid bulbs. Calvarium: The visualized calvarium at the skull base appears intact. Brain parenchyma: Partially visualized brain parenchyma at the skull base is within normal limits. Sinuses and mastoids: There is trace because of thickening in the right maxillary antrum. The mastoid air cells are well pneumatized. Cerumen is noted in the external auditory canals. Lung apices: Clear as visualized. IMPRESSION: There is no evidence of fracture or subluxation involving the cervical spine. ACT 112: Negative or not required by law. Electronically signed by: Carlo Zarate M.D. 05/24/2022 12:30 PM Chest X-Ray 05/24/22 11:36 XR chest 2V PA/lateral HISTORY: fall COMPARISON: Chest 11/09/2015. FINDINGS: There are low lung volumes. The heart is mildly enlarged. This remains unchanged. No new focal lung consolidations to suggest a pneumonia. No evidence for pulmonary edema. No pleural effusions. No pneumothorax. A few bibasilar linear densities likely representing subsegmental atelectasis or scarring. These remain unchanged. Prior vertebroplasty at L1. IMPRESSION: No significant change compared to the prior study. No acute process. ACT 112: Negative or not required by law. Electronically signed by: Luis Alfredo Lopez M.D. 05/24/2022 1:07 PM Elbow X-Ray 05/24/22 11:36 RIGHT ELBOW 3 VIEWS CLINICAL HISTORY: Fall with right elbow injury. FINDINGS: 3 views of the right elbow are obtained. No prior studies are available for comparison at the time of dictation. The skeletal structures are osteopenic. There is a nondisplaced supracondylar fracture of the humerus. There is also a tiny avulsion fracture of the radial head. A joint effusion is noted. No elbow dislocation is seen. Dorsal soft tissue swelling is observed. IMPRESSION: 1. Nondisplaced supracondylar humeral fracture. 2. Avulsion fracture of the radial head. 3. Soft tissue swelling and joint effusion. Electronically signed by: Carlo Zarate M.D. 05/24/2022 1:00 PM Foot X-Ray 05/24/22 11:36 XR foot LT min 3V routine CLINICAL HISTORY: fall TECHNIQUE: 3 views of the left foot were obtained. Comparison: Comparison is made to left toe radiographs 03/24/2020 FINDINGS: There is an oblique fracture of the first digit metatarsal. Intra-articular extension is not definitely seen. There is also a fracture of the second and third metatarsal necks. Soft tissue swelling is seen about the foot. IMPRESSION: Fractures of the first, second, and third metatarsals. No definite intra- articular extension is seen. There is associated soft tissue swelling. ACT 112: Negative or not required by law. Electronically signed by: Rakesh Thompson M.D. 05/24/2022 1:[address] 05/24/22 11:[address] DOSE: HISTORY: fall TECHNIQUE: Multiaxial CT images of the head were performed without the use of intravenous contrast. Automated exposure control was utilized for this study. A dose lowering technique was utilized adhering to the principles of ALARA. Comparison: Head CT 04/28/2022. Findings: The paranasal sinuses and mastoid air cells are clear. The calvarium and skull base are intact. The ventricles and sulci are within normal limits. There is no mass, hematoma, midline shift, or acute infarct. Impression: No acute intracranial abnormality. ACT 112: Negative or not required by law. Electronically signed by: Luis Alfredo Lopez M.D. 05/24/2022 12:[address] 05/24/22 11:36 CT lumbar spine wo con CLINICAL HISTORY: fall TECHNIQUE: Multidetector row helical CT of the lumbar spine was performed without administration of intravenous contrast. Coronal and sagittal reformations were obtained. Automated dose lowering techniques and/or adjustment according to patient size were utilized for this exam. CT DOSE: 1969.29 mGy.cm Comparison: Comparison is made to CT lumbar spine 05/04/2022 and fluoroscopy of the lumbar spine 05/07/2022 FINDINGS: There is interval cement arthroplasty of the lumbar spine. Old compression deformity at L1 is seen. Remaining vertebrae are without acute abnormality. No acute fractures are identified. Vertebral body heights and disk spaces are well maintained. Vertebral body alignment is within normal limits. Surrounding soft tissues are unremarkable. IMPRESSION: Degenerative changes without evidence of acute bony injury. Postsurgical changes of cemented arthroplasty are noted in the L1 vertebral body. ACT 112: Negative or not required by law. Electronically signed by: Rakesh Thompson M.D. 05/24/2022 12:18 PM Pelvis X-Ray 05/24/22 11:42 SINGLE VIEW PELVIS CLINICAL HISTORY: Fall. FINDINGS: AP, portable, supine pelvic radiograph is correlated with pelvic CT dated 04/28/2022. The skeletal structures are osteopenic. There is no radiographic evidence of acute fracture involving the hips or bony pelvis. Moderate degenerative joint space narrowing is seen in the hips. There is degenerative sclerosis of the sacroiliac joints and pubic symphysis. The overlying soft tissues are normal as imaged. Surgical clips project over the left lower sanjuana drant. IMPRESSION: No acute bony abnormality is identified. Electronically signed by: Carlo Zarate M.D. 05/24/2022 1:13 PM Discharge Plan Visit Data Chief Complaint: Fall Stated Complaint: FALL, R ARM & FOOT PAIN ED Provider: Teo Rankin Discharge Problem: Fall, Closed fracture of head of right radius, Closed supracondylar fracture of right elbow, Fracture of metatarsal of left foot, closed Patient Disposition: Being Evaluated by Hospitalist Forms Stand Alone Forms: My [facility] Prescriptions Prescriptions: No Action (DME) FreeStyle [place] 14 Day [place] Misc See Rx Instructions .MEDSUPPLY Qty: 1 0RF Rx Instructions: Use to test blood glucose 4 times daily lisinopril 5 mg tablet 5 mg PO QAM Qty: 90 3RF (DME) FreeStyle [place] 14 Day Sensor Kit See Rx Instructions .MEDSUPPLY Qty: 2 6RF Rx Instructions: Use to test blood glucose 4 times daily zolpidem 12.5 mg tablet,ext release multiphase 12.5 mg PO HS PRN (Reason: insomnia) Qty: 30 2RF (DME) pen needle, diabetic [BD Ultra-Fine Marsha Pen Needle] 32 gauge x 5/32" needle See Dose Instructions .ROUTE .MEDSUPPLY Qty: 500 1RF Rx Instructions: Use to inject insulin 4 times daily gabapentin 300 mg capsule 300 mg PO BID Qty: 180 1RF trazodone 100 mg tablet 100 mg PO HS Qty: 90 3RF multivitamin [Daily Multi-Vitamin] tablet 1 tab PO QAM vedolizumab 300 mg recon soln 300 mg IV Q8WK (DME) OneTouch Ultra Blue Test Strip strip See Dose Instructions .ROUTE .MEDSUPPLY Qty: 10 Rx Instructions: TWICE DAILY diphenoxylate-atropine 2.5-0.025 mg tablet 1 tab PO QID PRN (Reason: diarrhea) Qty: 360 0RF insulin glargine [Basaglar KwikPen U-100 Insulin] 100 unit/mL (3 mL) insulin pen 65 unit subcut QAM (DME) CPAP Supplies Misc See Rx Instructions .ROUTE .MEDSUPPLY Qty: 1 0RF Rx Instructions: CPAP supplies: headgear, hose/tubing, filters, all necessary supplies duloxetine 60 mg capsule,delayed release(DR/EC) 60 mg PO QPM hydrocodone-acetaminophen 5-325 mg tablet 1 tab PO Q6H PRN (Reason: Pain) diclofenac sodium [Voltaren Arthritis Pain] 1 % Gel 4 g EXT QID PRN (Reason: joint pain) Qty: 100 0RF Rx Instructions: please give tube from hospital insulin aspart U-100 [Novolog U-100 Insulin aspart] 100 unit/mL Solution See Rx Instructions .ROUTE .COMPLEX Qty: 10 0RF Rx Instructions: supplemental sliding scale. BSG goal range 110-140. Correction factor 12. Carb ratio - 1 unit of novolog for every 4 grams of carbohydrates consumed. prednisone 5 mg tablet 17 mg PO QAM Qty: 90 0RF acetaminophen [Tylenol Extra Strength] 500 mg Tablet 1,000 mg PO BID Qty: 30 0RF Rx Instructions: OTC ezetimibe 10 mg tablet 10 mg PO DAILY Rx Instructions: TAKE 1 TABLET DAILY Referrals Referrals: Micheal Hathaway III, CRNP [Primary Care Provider] -
--- NOTE | 2022-05-24 12:20 | CT Scan Report ---
CT lumbar spine wo con CLINICAL HISTORY: fall TECHNIQUE: Multidetector row helical CT of the lumbar spine was performed without administration of i ntravenous contrast. Coronal and sagittal reformations were obtained. Automated dose lowering techniq ues and/or adjustment according to patient size were utilized for this exam. CT DOSE: 1969.29 mGy.cm Comparison: Comparison is made to CT lumbar spine 05/04/2022 and fluoroscopy of the lumbar spine 022 FINDINGS: There is interval cement arthroplasty of the lumbar spine. Old compression deformity at L1 is seen. R emaining vertebrae are without acute abnormality. No acute fractures are identified. Vertebral body heights and disk spaces are well maintained. Verteb ral body alignment is within normal limits. Surrounding soft tissues are unremarkable. IMPRESSION: Degenerative changes without evidence of acute bony injury. Postsurgical changes of cemented arthropl asty are noted in the L1 vertebral body. ACT 112: Negative or not required by law. Electronically signed by: Rakesh Thompson M.D. 05/24/2022 12:18 PM
--- NOTE | 2022-05-24 12:32 | CT Scan Report ---
CT SCAN OF THE CERVICAL SPINE CLINICAL HISTORY: Fall. COMPARISON STUDY: No priors. TECHNIQUE: CT scan of the cervical spine is performed from the skull base to the upper thoracic spine . Images are reviewed in the axial, sagittal, and coronal planes. IV contrast was not administered fo r this examination. A dose lowering technique was utilized adhering to the principles of ALARA. FINDINGS: Skeletal structures: The skeletal structures are osteopenic. There is no evidence of fracture or subl uxation involving the cervical spine. Vertebral body height and alignment are maintained. There is s traightening of the cervical lordosis. Small anterior osteophytes are seen throughout. The odontoid p rocess and lateral masses are intact. The atlantoaxial articulation is preserved noting mild producti ve degenerative change. The spinous processes appear intact. There is mild multilevel facet arthropat hy. Intervertebral discs: There is moderate disc space narrowing at C5-C6. Mild disc space narrowing is s een at the remaining cervical levels. Central canal: Grossly patent. Soft tissues: The prevertebral and paraspinous soft tissues are within normal limits. Mild atheroscle rotic calcification is noted in the carotid bulbs. Calvarium: The visualized calvarium at the skull base appears intact. Brain parenchyma: Partially visualized brain parenchyma at the skull base is within normal limits. Sinuses and mastoids: There is trace because of thickening in the right maxillary antrum. The mastoid air cells are well pneumatized. Cerumen is noted in the external auditory canals. Lung apices: Clear as visualized. IMPRESSION: There is no evidence of fracture or subluxation involving the cervical spine. ACT 112: Negative or not required by law. Electronically signed by: Carlo Zarate M.D. 05/24/2022 12:30 PM
--- NOTE | 2022-05-24 12:32 | CT Scan Report ---
HEAD CT NONCONTRAST CT DOSE: HISTORY: fall TECHNIQUE: Multiaxial CT images of the head were performed without the use of intravenous contrast. A utomated exposure control was utilized for this study. A dose lowering technique was utilized adheri ng to the principles of ALARA. Comparison: Head CT 04/28/2022. Findings: The paranasal sinuses and mastoid air cells are clear. The calvarium and skull base are int act. The ventricles and sulci are within normal limits. There is no mass, hematoma, midline shift, or acute infarct. Impression: No acute intracranial abnormality. ACT 112: Negative or not required by law. Electronically signed by: Luis Alfredo Lopez M.D. 05/24/2022 12:31 PM
--- NOTE | 2022-05-24 13:01 | XRay Report ---
RIGHT ELBOW 3 VIEWS CLINICAL HISTORY: Fall with right elbow injury. FINDINGS: 3 views of the right elbow are obtained. No prior studies are available for comparison at t he time of dictation. The skeletal structures are osteopenic. There is a nondisplaced supracondylar f racture of the humerus. There is also a tiny avulsion fracture of the radial head. A joint effusion i s noted. No elbow dislocation is seen. Dorsal soft tissue swelling is observed. IMPRESSION: 1. Nondisplaced supracondylar humeral fracture. 2. Avulsion fracture of the radial head. 3. Soft tissue swelling and joint effusion. Electronically signed by: Carlo Zarate M.D. 05/24/2022 1:00 PM
--- NOTE | 2022-05-24 13:08 | XRay Report ---
XR chest 2V PA/lateral HISTORY: fall COMPARISON: Chest 11/09/2015. FINDINGS: There are low lung volumes. The heart is mildly enlarged. This remains unchanged. No new fo maddie lung consolidations to suggest a pneumonia. No evidence for pulmonary edema. No pleural effusions . No pneumothorax. A few bibasilar linear densities likely representing subsegmental atelectasis or s carring. These remain unchanged. Prior vertebroplasty at L1. IMPRESSION: No significant change compared to the prior study. No acute process. ACT 112: Negative or not required by law. Electronically signed by: Luis Alfredo Lopez M.D. 05/24/2022 1:07 PM
--- NOTE | 2022-05-24 13:14 | XRay Report ---
SINGLE VIEW PELVIS CLINICAL HISTORY: Fall. FINDINGS: AP, portable, supine pelvic radiograph is correlated with pelvic CT dated 04/28/2022. The ske letal structures are osteopenic. There is no radiographic evidence of acute fracture involving the hi ps or bony pelvis. Moderate degenerative joint space narrowing is seen in the hips. There is degenera tive sclerosis of the sacroiliac joints and pubic symphysis. The overlying soft tissues are normal as imaged. Surgical clips project over the left lower quadrant. IMPRESSION: No acute bony abnormality is identified. Electronically signed by: Carlo Zarate M.D. 05/24/2022 1:13 PM
--- NOTE | 2022-05-24 13:18 | XRay Report ---
XR foot LT min 3V routine CLINICAL HISTORY: fall TECHNIQUE: 3 views of the left foot were obtained. Comparison: Comparison is made to left toe radiographs 03/24/2020 FINDINGS: There is an oblique fracture of the first digit metatarsal. Intra-articular extension is not definite ly seen. There is also a fracture of the second and third metatarsal necks. Soft tissue swelling is s een about the foot. IMPRESSION: Fractures of the first, second, and third metatarsals. No definite intra-articular extension is seen. There is associated soft tissue swelling. ACT 112: Negative or not required by law. Electronically signed by: Rakesh Thompson M.D. 05/24/2022 1:16 PM
[2022-05-24] MEDS ORDERED: MoRPHine SULFATE 4 MG/ML 1 ML CARP\\VIAL IV PRN (13:45)
[2022-05-24] MEDS ORDERED: ONDANSETRON INJ 2 MG/ML 2 ML VIAL IV STA (13:45)
[2022-05-24] MEDS ORDERED: ONDANSETRON INJ 2 MG/ML 2 ML VIAL IV PRN ×2 (14:20→16:58)
[2022-05-24] MEDS ORDERED: ACETAMINOPHEN 325 MG TAB PO PRN (14:20)
[2022-05-24] MEDS ORDERED: POLYETHYLENE (MIRALAX) 17 GM PACK PO PRN ×2 (14:20→16:58)
[2022-05-24 14:32] LABS: Basophils # (auto) 0.05 K/uL (0-0.2); Basophils % (auto) 0.3 %; Eosinophils # (auto) 0.04 K/uL (0-0.50); Eosinophils % (auto) 0.2 %; Hematocrit (blood only) 48.8 % (40.1-51.0); Hemoglobin 16.7 g/dl (14.0-18.0); Immature Granulocytes # (auto) 0.08 K/uL (0.00-0.02); Immature Granulocytes % (auto) 0.5 %; Lymphocytes # (auto) 1.21 K/uL (1.2-3.4); Lymphocytes % (auto) 7.3 %; Mean Corpuscular Hemoglobin 29.7 pg (25.0-34.0); Mean Corpuscular Hgb Conc 34.2 g/dL (32.0-36.0); Mean Corpuscular Volume 86.8 fL (80.0-100.0); Mean Platelet Volume 10.2 fL (9.4-12.4); Monocytes # (auto) 0.77 K/uL (0.24-0.82); Monocytes % (auto) 4.7 %; Neutrophils # (auto) 14.36 K/uL (1.4-6.5); Platelet Count 286 K/uL (130-400); RDW Standard Deviation 44.9 fL (36.4-46.3); Red Blood Count 5.62 M/uL (4.63-6.08); White Blood Count 16.51 K/ul (4.8-10.8)
[2022-05-24 14:50] LABS: Appearance Urine Clear (Clear); Bilirubin Urine Negative (Negative); Blood Urine Negative (Negative); Color Urine Yellow; Glucose Urine UA Negative (Negative); Ketones Urine Negative (Negative); Leukocyte Esterase Urine Negative (Negative); Nitrite Urine Negative (Negative); Protein Urine Negative (Negative); Specific Gravity Urine 1.013 (1.000-1.030); Urobilinogen Urine Negative (Negative); pH Urine 5.5 (4.5-7.5)
--- NOTE | 2022-05-24 14:54 | History & Physical Report ---
Date of Service May 24, 2022 Assessment & Plan (1) Right radial fracture: Plan: - With concomitant supracondylar humeral fracture. - Patient placed in a sling. - [facility] consulted for evaluation, appreciate their recommendations. - For now, pain control with rotating ice/heat, scheduled Tylenol, topical Voltaren gel, Braddock as needed for breakthrough pain. - Continue medications for recent burst fracture: Gabapentin, Cymbalta, calcitonin spray. - Patient will likely require placement to a SNF upon discharge. - PT/OT to evaluate and treat while admitted. (2) Supracondylar fracture of humerus: Plan: - As above. (3) Metatarsal stress fracture of left foot: Plan: - Podiatry to evaluate patient. - Pain management as above. (4) Burst fracture of lumbar vertebra: Plan: - Hospitalized 05/04 - 05/[address] Lester on 05/07. - Discharged with Tylenol 1 g twice daily, Braddock as needed, gabapentin 300 mg twice daily, Cymbalta 60 mg. - Discharged to [facility] 05/09-05/14 - No longer needs TLSO brace when OOB. (5) Polymyositis-dermatomyositis: Plan: - Follows with [facility] rheumatology. - Continue home prednisone 17 mg daily - If any procedures are performed for the above fractures, may need stress dose steroids at that time. (6) Type 1 diabetes mellitus on insulin therapy: Plan: - A1c 6.1% - Glycemic management consultation to pharmacy, appreciate their recommendations. - Last admission sugars were well controlled with Lantus 30 units in a.m., 20-30 units at night depending on sugar with NovoLog goal range [id number], CF 12, CR 4 (7) Hypertension: Plan: - Continue lisinopril 5 mg in the a.m. (8) Hypercholesterolemia: Plan: - Continue Zetia 10 mg daily. - Patient is statin intolerant. (9) Crohn's disease: Plan: - Entyvio injections q8 weeks--not due for this for 6 more weeks. - Lomotil prn for diarrhea. (10) Insomnia: Plan: - Continue Ambien, trazodone. Plan - Obs tor medsurg. - SCDs for VTE ppx. - Full Code. History of Present Illness Chief Complaint: fall this afternoon at home Primary Care Provider: Micheal Hathaway, III, ADRIÁN Edmundo Rodrigues is a 61-year-old male with past medical history significant for polymyositisdermatomyositis, chronic muscle weakness, DM 1, hypertension, hyperlipidemia who presents today after falling at home. Patient was ambulating at home when his legs gave out on him, causing him to land on his right arm. This is not unusual for patient, as he does have muscle weakness diffuse due to his polymyositis. He is complaining of pain in his foot and right arm. He did not hit his head or lose consciousness. No other complaints, is without chest pain, palpitations, shortness of breath, abdominal pain, nausea, vomiting. He was just admitted from 05/04-04/2014 for a lumbar burst fracture. He did undergo an L1 kyphoplasty with Dr. Lester on 05/07. He was discharged to [facility] 05/09 and returned home on 05/14. Since then, he has had his usual weakness which did bleed as well today. Multiple scans done for fall, R elbow XR significant for a nondisplaced supracondylar humeral fracture, avulsion fracture of the radial head, with swelling and a joint effusion. Foot XR shows fractures of the first, second, and third metatarsals. No definite intra-articular extension is seen. There is associated soft tissue swelling. Head CT, lumbar and cervical spine CT, pelvis XR, and CXR unremarkable for additional injuries. On presentation to the ED, his vital signs are within normal limits and stable. He does have an elevated WBC of 16, however is on chronic steroids. BMP significant for elevated ALT and alk phos which is unchanged for patient. No electrolyte abnormalities or acute kidney injury. His urine does not appear infected. COVID-negative. Allergies Allergy/AdvReac Type Severity Reaction Status Date / Time mercaptopurine AdvReac Severe JAUNDICE Verified 05/16/22 11:22 Home Medications Medication Instructions Recorded Confirmed Type multivitamin (Daily Multi-Vitamin 1 tab PO QAM 03/04/19 05/16/22 History tablet) blood sugar diagnostic (OneTouch #10 ea 04/01/19 05/16/22 History Ultra Blue Test Strip) vedolizumab 300 mg intravenous 300 mg IV Q8WK 04/01/19 05/16/22 History solution diphenoxylate-atropine 2.5 1 tab PO QID PRN diarrhea #360 tabs 07/20/19 05/16/22 Rx mg-0.025 mg tablet CPAP Supplies #1 ea 10/08/19 05/16/22 Rx duloxetine 60 mg capsule,delayed 60 mg PO QPM 03/01/20 05/16/22 History release flash glucose scanning reader #1 ea 06/21/20 05/16/22 Rx (FreeStyle [place] 14 Day [place]) lisinopril 5 mg tablet 5 mg PO QAM #90 tabs 11/06/21 05/16/22 Rx flash glucose sensor (FreeStyle #2 ea 12/12/21 05/16/22 Rx [place] 14 Day Sensor kit) zolpidem 12.5 mg tablet,extended 12.5 mg PO HS PRN insomnia #30 tabs 02/13/22 05/16/22 Rx release,multiphase pen needle, diabetic 32 gauge x #500 ea 03/12/22 05/16/22 Rx 5/32" (BD Ultra-Fine Marsha Pen Needle) gabapentin 300 mg capsule 300 mg PO BID #180 caps 03/15/22 05/16/22 Rx ezetimibe 10 mg tablet 10 mg PO DAILY 04/28/22 05/16/22 History hydrocodone 5 mg-acetaminophen 325 1 tab PO Q6H PRN Pain 04/28/22 05/16/22 History mg tablet diclofenac sodium 1 % topical gel 4 g EXT QID PRN joint pain #100 05/02/22 05/16/22 Rx (Voltaren Arthritis Pain) grams acetaminophen 500 mg tablet 1,000 mg PO BID #30 tabs 05/09/22 05/16/22 Rx (Tylenol Extra Strength) insulin aspart U-100 100 unit/mL See Rx Instructions .Route 05/09/22 05/16/22 Rx subcutaneous solution (Novolog .COMPLEX #10 mL U-100 Insulin aspart) prednisone 5 mg tablet 17 mg PO QAM #90 tabs 05/09/22 05/16/22 Rx insulin glargine 100 unit/mL (3 65 unit subcut QAM 05/16/22 History mL) subcutaneous pen (Basaglar KwikPen U-100 Insulin) trazodone 100 mg tablet 100 mg PO HS #90 tabs 05/23/22 Rx Past Med/Surg History Medical History Chronic back pain Chronic steroid use Crohn's disease (~08/2021) Diverticulosis Dysfunction of right eustachian tube Elevated hemoglobin A1c Fall in home History of intestinal obstruction History of migraine HLD (hyperlipidemia) HTN (hypertension) Inclusion body myositis Follows with [facility] Mixed conductive and sensorineural hearing loss of right ear with restricted hearing of left ear Osteoarthritis Polymyositis-dermatomyositis Sleep apnea CPAP Statin myopathy Type 1 diabetes mellitus on insulin therapy Urinary retention Wheelchair bound Surgical History History of biopsy muscle History of cholecystectomy History of colonoscopy History of esophagogastroduodenoscopy (EGD) History of incision and drainage (2016) I&D of sebaceous cyst right upper back History of intestinal surgery History of surgery (2017) epidermal cyst excision History of wisdom tooth extraction Family History Unknown Breast cancer Father Diabetes Father Hearing loss Stroke Mother Hypertension Cancer Heart disease Other Allergies No family history of adverse response to anesthesia No family history of bleeding disorder Denies family history of Ovarian cancer Prostate cancer Myocardial infarction Colorectal cancer Social History Smoking Status: Former smoker Tobacco Type: Cigarettes Age Started Using Tobacco: 14; Age Quit Using Tobacco: 17; Second Hand Exposure: No; Hx Alcohol Use: No Hx Substance Use: No Preferred Language: Tajik Communication Ability: Effective Visual Impairment: No Limitations Hearing Ability: Normal Application Operations Engineer Required: No Beliefs That Will Affect Care: None marital status: Current Living Situation: Spouse current occupational status: employed current occupation: security How many Children do You have: 2 Feels Safe at Home: Yes Childhood Exposure to Second-Hand Smoke: Yes Diet Comment: regular caffeine: Yes during the past year weight has: remained stable Dental Care, Regularly: Yes Physical Activity Frequency: Does not Exercise Seatbelt Use: always Sunscreen Use: Yes Assistive Devices: Cane, Stair Lift, Walker and Wheelchair Review of Systems Review of Systems: Constitutional: ongoing general weakness, unchanged; No fever/chills, fatigue, myalgias, anorexia, night sweats Eyes: No diplopia, no worsening or blurred vision ENT: normal hearing, no trouble swallowing Respiratory: No cough, sputum, dyspnea at rest or on exertion Cardiovascular: No chest pain, tightness or palpitations Abdomen: No pain, nausea, vomiting, diarrhea or constipation : Denies dysuria, hematuria, increased urgency/frequency, urinary retention Musculoskeletal: Right arm and left foot pain s/p fall; no joint pain, calf pain, swelling Neurologic: No weakness, numbness/tingling, or balance problems Psychiatric: No anxiety or depression Skin: No rash or itch Physical Exam Physical Exam: General: awake, alert, no apparent distress Head: Normocephalic, atraumatic ENT: PERRL, EOMI, no pharyngeal exudate, mucous membranes moist Chest: Clear to auscultation, on room air, no adventitious breath sounds Cardiac: Regular rate and rhythm, no murmur, no JVD, normal peripheral pulses, good capillary refill Abdominal: NABS x 4 quadrants, soft, nontender to palpation, no rebound, guarding or tenderness Extremities: RLE in sling, painful to move; left foot swollen, slightly erythematous but not cyanotic; painful to move, but pulses intact throughout, sensation intact; no pain out of proportion Psych: Normal mood and affect Neuro: AAO x 3, strength intact bilaterally and rated 5/5, no motor deficits, speech is clear, no peripheral sensory deficits Skin: no rash or erythema Results & Data Results & Data ([facility]) Vital Signs (Past 12 Hours) Vital Signs Temp Pulse Resp BP Pulse Ox O2 Del Method 05/24/22 11:31 36.7 C 99 H 19 132/75 98 Room Air Diagnostic Findings Cervical Spine CT 05/24/22 11:36 CT SCAN OF THE CERVICAL SPINE CLINICAL HISTORY: Fall. COMPARISON STUDY: No priors. TECHNIQUE: CT scan of the cervical spine is performed from the skull base to the upper thoracic spine. Images are reviewed in the axial, sagittal, and coronal p lanes. IV contrast was not administered for this examination. A dose lowering technique was utilized adhering to the principles of ALARA. FINDINGS: Skeletal structures: The skeletal structures are osteopenic. There is no evidence of fracture or subluxation involving the cervical spine. Vertebral body height and alignment are maintained. There is straightening of the cervical lordosis. Small anterior osteophytes are seen throughout. The odontoid process and lateral masses are intact. The atlantoaxial articulation is preserved noting mild productive degenerative change. The spinous processes appear intact. There is mild multilevel facet arthropathy. Intervertebral discs: There is moderate disc space narrowing at C5-C6. Mild disc space narrowing is seen at the remaining cervical levels. Central canal: Grossly patent. Soft tissues: The prevertebral and paraspinous soft tissues are within normal limits. Mild atherosclerotic calcification is noted in the carotid bulbs. Calvarium: The visualized calvarium at the skull base appears intact. Brain parenchyma: Partially visualized brain parenchyma at the skull base is within normal limits. Sinuses and mastoids: There is trace because of thickening in the right maxillary antrum. The mastoid air cells are well pneumatized. Cerumen is noted in the external auditory canals. Lung apices: Clear as visualized. IMPRESSION: There is no evidence of fracture or subluxation involving the cervical spine. ACT 112: Negative or not required by law. Electronically signed by: Carlo Zarate M.D. 05/24/2022 12:30 PM Chest X-Ray 05/24/22 11:36 XR chest 2V PA/lateral HISTORY: fall COMPARISON: Chest 11/09/2015. FINDINGS: There are low lung volumes. The heart is mildly enlarged. This remains unchanged. No new focal lung consolidations to suggest a pneumonia. No evidence for pulmonary edema. No pleural effusions. No pneumothorax. A few bibasilar linear densities likely representing subsegmental atelectasis or scarring. These remain unchanged. Prior vertebroplasty at L1. IMPRESSION: No significant change compared to the prior study. No acute process. ACT 112: Negative or not required by law. Electronically signed by: Luis Alfredo Lopez M.D. 05/24/2022 1:07 PM Elbow X-Ray 05/24/22 11:36 RIGHT ELBOW 3 VIEWS CLINICAL HISTORY: Fall with right elbow injury. FINDINGS: 3 views of the right elbow are obtained. No prior studies are available for comparison at the time of dictation. The skeletal structures are osteopenic. There is a nondisplaced supracondylar fracture of the humerus. There is also a tiny avulsion fracture of the radial head. A joint effusion is noted. No elbow dislocation is seen. Dorsal soft tissue swelling is observed. IMPRESSION: 1. Nondisplaced supracondylar humeral fracture. 2. Avulsion fracture of the radial head. 3. Soft tissue swelling and joint effusion. Electronically signed by: Carlo Zarate M.D. 05/24/2022 1:00 PM Foot X-Ray 05/24/22 11:36 XR foot LT min 3V routine CLINICAL HISTORY: fall TECHNIQUE: 3 views of the left foot were obtained. Comparison: Comparison is made to left toe radiographs 03/24/2020 FINDINGS: There is an oblique fracture of the first digit metatarsal. Intra-articular extension is not definitely seen. There is also a fracture of the second and third metatarsal necks. Soft tissue swelling is seen about the foot. IMPRESSION: Fractures of the first, second, and third metatarsals. No definite intra- articular extension is seen. There is associated soft tissue swelling. ACT 112: Negative or not required by law. Electronically signed by: Rakesh Thompson M.D. 05/24/2022 1:[address] 05/24/22 11:[address] DOSE: HISTORY: fall TECHNIQUE: Multiaxial CT images of the head were performed without the use of intravenous contrast. Automated exposure control was utilized for this study. A dose lowering technique was utilized adhering to the principles of ALARA. Comparison: Head CT 04/28/2022. Findings: The paranasal sinuses and mastoid air cells are clear. The calvarium and skull base are intact. The ventricles and sulci are within normal limits. There is no mass, hematoma, midline shift, or acute infarct. Impression: No acute intracranial abnormality. ACT 112: Negative or not required by law. Electronically signed by: Luis Alfredo Lopez M.D. 05/24/2022 12:[address] 05/24/22 11:36 CT lumbar spine wo con CLINICAL HISTORY: fall TECHNIQUE: Multidetector row helical CT of the lumbar spine was performed without administration of intravenous contrast. Coronal and sagittal reformations were obtained. Automated dose lowering techniques and/or adjustment according to patient size were utilized for this exam. CT DOSE: 1969.29 mGy.cm Comparison: Comparison is made to CT lumbar spine 05/04/2022 and fluoroscopy of the lumbar spine 05/07/2022 FINDINGS: There is interval cement arthroplasty of the lumbar spine. Old compression deformity at L1 is seen. Remaining vertebrae are without acute abnormality. No acute fractures are identified. Vertebral body heights and disk spaces are well maintained. Vertebral body alignment is within normal limits. Surrounding soft tissues are unremarkable. IMPRESSION: Degenerative changes without evidence of acute bony injury. Postsurgical changes of cemented arthroplasty are noted in the L1 vertebral body. ACT 112: Negative or not required by law. Electronically signed by: Rakesh Thompson M.D. 05/24/2022 12:18 PM Pelvis X-Ray 05/24/22 11:42 SINGLE VIEW PELVIS CLINICAL HISTORY: Fall. FINDINGS: AP, portable, supine pelvic radiograph is correlated with pelvic CT dated 04/28/2022. The skeletal structures are osteopenic. There is no radiographic evidence of acute fracture involving the hips or bony pelvis. Moderate degenerative joint space narrowing is seen in the hips. There is degenerative sclerosis of the sacroiliac joints and pubic symphysis. The overlying soft tissues are normal as imaged. Surgical clips project over the left lower quadrant. IMPRESSION: No acute bony abnormality is identified. Electronically signed by: Carlo Zarate M.D. 05/24/2022 1:13 PM Code Status & VTE Plan Code Status Full Code. VTE Prophylaxis Plan VTE Prophylaxis will be ordered: Yes Supervising Physician Co-Signing Physician Notes I personally saw and examined the patient. I verified all ross points and agree with Leatha Deleon PA-C with the following exceptions and/or additions: 61 year old male presents to the ER after a fall due to his longstanding polymyositis. No significant change in his weakness, dizziness, shortness of breath of chest pain prior to falling. O/E HS1+2, no murmurs, Chest CTAB, Abdo SNT, RUE in sling, cap refill < 2s A/P Right radial fracture and supracondylar fracture humerus - continue RUE in sling, consult orthopedics PG Care Time/CCT Total # of Minutes Spent Total Time Spent with Patient: Total time spent is greater than 50% in coordination of care (as documented) at patient's floor/unit and/or counseling patient: Coding Level of Care Code INT OBSERVATION CARE 70M LVL 3 Diagnoses Right radial fracture S52.91XA Supracondylar fracture of humerus S42.413A Metatarsal stress fracture of left foot M84.375A Burst fracture of lumbar vertebra S32.001A Polymyositis-dermatomyositis M33.90 Type 1 diabetes mellitus on insulin therapy E10.9 Hypertension I10 Hypercholesterolemia E78.00 Crohn's disease K50.90 Insomnia G47.00
[2022-05-24 14:56] LABS: Alanine Aminotransferase 58 U/L (7-52); Albumin Globulin Ratio 1.7 (0.9-2); Albumin Level 3.7 gm/dl (3.4-5.0); Alkaline Phosphatase 142 U/L (34-104); Anion Gap 7 (3-11); Aspartate Aminotransferase 31 U/L (13-39); BUN Creatinine Ratio 44.1 (10-20); Bilirubin,Total 0.7 mg/dl (0.2-1.0); Blood Urea Nitrogen 15 mg/dl (6-23); Calcium 8.7 mg/dl (8.5-10.1); Carbon Dioxide 28 mmol/L (21-32); Chloride 104 mmol/L (98-107); Creatinine Clr Calc Pharmacy 284.2 ml/min; Est GFR (African American) > 150.0 ml/min; Est GFR (Non-African American) 137.1 ml/min; Globulin 2.2 gm/dl (2.5-4.0); Glucose 147 mg/dl (70-99(Fasting)); Lipase 32 U/L (11-82); Potassium 4.1 mmol/L (3.5-5.1); Sodium 139 mmol/L (136-145); Total Protein 5.9 gm/dl (6.0-8.3)
[2022-05-24] MEDS ORDERED: HYDROCODONE/ACETAMOPHEN 5/325MG TAB PO PRN (16:58)
[2022-05-24] MEDS ORDERED: DIPHENOXYLATE/ATROPINE 2.5/0.025MG TAB PO PRN (16:58)
[2022-05-24] MEDS ORDERED: DC ALL PREVIOUSLY ORDERED DIABETES MEDS ONE (16:58)
[2022-05-24] MEDS ORDERED: PHARMACY GLYCEMIC MGMT CONSULT PRN (16:58)
[2022-05-24] MEDS ORDERED: DICLOFENAC SOD 1% GEL 100 GM TUBE EXT PRN (16:58)
[2022-05-24] MEDS ORDERED: CARBOHYDRATES FOR HYPOGLYCEMIA PO PRN (16:58)
[2022-05-24] MEDS ORDERED: DEXTROSE 50% 50 ML SYRINGE IV PRN (16:58)
[2022-05-24] MEDS ORDERED: GLUCAGON FOR INJ 1 MG VIAL SQ PRN (16:58)
[2022-05-24] MEDS ORDERED: GLUCOSE 10 TAB/TUBE PO PRN (16:58)
[2022-05-24] MEDS ORDERED: GLUCOSE 40% GEL 15 GM TUBE PO PRN (16:58)
[2022-05-24] MEDS: INSULIN ASPART PER UNIT SC SCH ×2 (18:22→21:21)
--- NOTE | 2022-05-24 19:48 | Orthopedic Consultation ---
Date of Consultation May 24, 2022 Assessment & Plan (1) Closed fracture of head of right radius: (2) Closed supracondylar fracture of right elbow: Plan - Nonweightbearing right upper extremity in splint/simple sling -Pain control -Defer left foot fractures to podiatry -Medical management -PT/OT -Right upper extremity stable from Ortho standpoint. I did discuss with the patient conservative treatment with immobilization followed by active range of motion in several weeks. I did discuss with him that he could have some stiffness and loss of range of motion particularly terminal extension. He is in agreement with this plan. He will continue immobilization in a splint and simple sling and may follow-up as an outpatient in 7 to 10 days. We will sign off at this time. History of Present Illness Reason for Consultation: Right supracondylar humerus fracture and radial head fracture Attending Physician: Jesus Ma MD History of Present Illness 61-year-old male [id number] presenting after sustaining a ground-level fall. 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 He fell earlier today injuring his right upper extremity as well as his foot. He was seen at the emergency department and radiographs demonstrated metatarsal fractures as well as a right supracondylar numerous fracture that was nondisplaced as well as avulsion ino off the radial head. Orthopedics was consulted for evaluation of the right upper extremity. Allergies Allergy/AdvReac Type Severity Reaction Status Date / Time mercaptopurine AdvReac Severe JAUNDICE Verified 05/16/22 11:22 Home Medications Medication Instructions Recorded Confirmed Type multivitamin (Daily Multi-Vitamin 1 tab PO QAM 03/04/19 05/16/22 History tablet) blood sugar diagnostic (OneTouch #10 ea 04/01/19 05/16/22 History Ultra Blue Test Strip) vedolizumab 300 mg intravenous 300 mg IV Q8WK 04/01/19 05/16/22 History solution diphenoxylate-atropine 2.5 1 tab PO QID PRN diarrhea #360 tabs 07/20/19 05/16/22 Rx mg-0.025 mg tablet CPAP Supplies #1 ea 10/08/19 05/16/22 Rx duloxetine 60 mg capsule,delayed 60 mg PO QPM 03/01/20 05/16/22 History release flash glucose scanning reader #1 ea 06/21/20 05/16/22 Rx (FreeStyle [place] 14 Day [place]) lisinopril 5 mg tablet 5 mg PO QAM #90 tabs 11/06/21 05/16/22 Rx flash glucose sensor (FreeStyle #2 ea 12/12/21 05/16/22 Rx [place] 14 Day Sensor kit) zolpidem 12.5 mg tablet,extended 12.5 mg PO HS PRN insomnia #30 tabs 02/13/22 Rx release,multiphase pen needle, diabetic 32 gauge x #500 ea 03/12/22 05/16/22 Rx 532" (BD Ultra-Fine [place]ha Pen Needle) gabapentin 300 mg capsule 300 mg PO BID #180 caps 03/15/22 05/16/22 Rx ezetimibe 10 mg tablet 10 mg PO DAILY 04/28/22 05/16/22 History hydrocodone 5 mg-acetaminophen 325 1 tab PO Q6H PRN Pain 04/28/22 05/16/22 History mg tablet diclofenac sodium 1 % topical gel 4 g EXT QID PRN joint pain #100 05/02/22 05/16/22 Rx (Voltaren Arthritis Pain) grams acetaminophen 500 mg tablet 1,000 mg PO BID #30 tabs 05/09/22 05/16/22 Rx (Tylenol Extra Strength) insulin aspart U-100 100 unit/mL See Rx Instructions .Route 05/09/22 05/16/22 Rx subcutaneous solution (Novolog .COMPLEX #10 mL U-100 Insulin aspart) prednisone 5 mg tablet 17 mg PO QAM #90 tabs 05/09/22 05/16/22 Rx insulin glargine 100 unit/mL (3 65 unit subcut QAM 05/16/22 History mL) subcutaneous pen (Basaglar KwikPen U-100 Insulin) trazodone 100 mg tablet 100 mg PO HS #90 tabs 05/23/22 Rx Patient History Medical History (Updated 05/24/22 @ 15:35 by Leatha Deleon PA-C) Chronic back pain Chronic steroid use Crohn's disease (~08/2021) Diverticulosis Dysfunction of right eustachian tube Elevated hemoglobin A1c Fall in home History of intestinal obstruction History of migraine HLD (hyperlipidemia) HTN (hypertension) Inclusion body myositis Follows with [facility] Rheumatology Mixed conductive and sensorineural hearing loss of right ear with restricted hearing of left ear Osteoarthritis Polymyositis-dermatomyositis Sleep apnea CPAP Statin myopathy Type 1 diabetes mellitus on insulin therapy Urinary retention Wheelchair bound Surgical History History of biopsy muscle History of cholecystectomy History of colonoscopy History of esophagogastroduodenoscopy (EGD) History of incision and drainage (2017) I&D of sebaceous cyst right upper back History of intestinal surgery History of surgery (2017) epidermal cyst excision History of wisdom tooth extraction Family History Unknown Breast cancer Father Diabetes Father Hearing loss Stroke Mother Hypertension Cancer Heart disease Other Allergies No family history of adverse response to anesthesia No family history of bleeding disorder Denies family history of Ovarian cancer Prostate cancer Myocardial infarction Colorectal cancer Social History Smoking Status: Former smoker Tobacco Type: Cigarettes Age Started Using Tobacco: 14; Age Quit Using Tobacco: 17; Second Hand Exposure: No; Hx Alcohol Use: No Hx Substance Use: No Preferred Language: Citizen Of [place] Communication Ability: Effective Visual Impairment: No Limitations Hearing Ability: Normal Hand Heel Seat Fitter Required: No Beliefs That Will Affect Care: None marital status: Current Living Situation: Spouse current occupational status: employed current occupation: security How many Children do You have: 1 Other Information That Helps Us Care for You: No Feels Safe at Home: Yes Safety Concerns: Feels Safe At This Time Childhood Exposure to Second-Hand Smoke: Yes Diet Comment: regular caffeine: Yes during the past year weight has: remained stable Dental Care, Regularly: Yes Physical Activity Frequency: Does not Exercise Seatbelt Use: always Sunscreen Use: Yes Assistive Devices: CPAP, Walker and Wheelchair Physical Exam Constitutional: General: No acute distress, alert and oriented person place and time Musculoskeletal: Right upper extremity: In posterior slab splint at 90 degrees. Upper arm and forearm compartments soft and compressible. Sensation intact to light touch in the distributions of the axillary/median/radial/ulnar nerve distributions. Fires: Wrist flexors/wrist extensors/FPL/EPL/dorsal interossei. Palpable radial pulse with brisk capillary refill. Results & Data ([facility]) Vital Signs (Past 12 Hours) Vital Signs Temp Pulse Pulse Resp BP BP Pulse Ox 05/24/22 17:04 05/24/22 17:04 36.8 C 70 18 138/64 97 05/24/22 14:00 05/24/22 14:00 75 18 139/79 99 05/24/22 11:31 36.7 C 99 H 19 132/75 98 O2 Del Method 05/24/22 17:04 Room Air 05/24/22 17:04 Room Air 05/24/22 14:00 Room Air 05/24/22 14:00 Room Air 05/24/22 11:31 Room Air Diagnostic Findings Radiographs of the right elbow demonstrate a nondisplaced right supracondylar humerus fracture. Radiocapitellar alignment is maintained on all views. There appears to be a small avulsion ino off the radial aspect of the radial head. (1) Closed fracture of head of right radius Encounter type: initial encounter Fracture alignment: displaced Qualified Code(s): S52.121A - Displaced fracture of head of right radius, initial encounter for closed fracture (2) Closed supracondylar fracture of right elbow Encounter type: initial encounter Qualified Code(s): S42.411A - Displaced simple supracondylar fracture without intercondylar fracture of right humerus, initial encounter for closed fracture
[2022-05-24] MEDS: traZODone HCL 100 MG TAB PO SCH (20:02)
[2022-05-24] MEDS: GABAPENTIN 300 MG CAP PO SCH (20:02)
[2022-05-24] MEDS: DULoxetine HCL 60 MG CAP PO SCH (20:02)
[2022-05-24] MEDS: ACETAMINOPHEN 500 MG TAB PO SCH (20:03)
[2022-05-24] MEDS ORDERED: LANTUS PER UNIT CHARGE SQ SCH (21:00)
[2022-05-24] MEDS: ZOLPIDEM TARTRATE 10 MG TAB PO PRN (22:47)
[2022-05-24] MEDS: HYDROCODONE/ACETAMOPHEN 5/325MG TAB PO PRN (22:47)
[2022-05-24] MEDS ORDERED: CHLORASEPTIC 1.4% SOLN 180 ML BTL MT PRN (22:52)
[2022-05-25] MEDS: predniSONE 5 MG TAB PO SCH (08:39)
[2022-05-25] MEDS: HYDROCODONE/ACETAMOPHEN 5/325MG TAB PO PRN ×3 (08:39→22:05)
[2022-05-25] MEDS: GABAPENTIN 300 MG CAP PO SCH ×2 (08:39→20:25)
[2022-05-25] MEDS: MULTIVITAMIN TAB PO SCH (08:40)
[2022-05-25] MEDS: lisinopril 5 MG TAB PO SCH (08:40)
[2022-05-25] MEDS: EZETIMIBE 10 MG TABLET PO SCH (08:40)
[2022-05-25] MEDS: ACETAMINOPHEN 500 MG TAB PO SCH ×2 (08:40→20:27)
[2022-05-25] MEDS: INSULIN ASPART PER UNIT SC SCH ×4 (08:45→20:41)
--- NOTE | 2022-05-25 09:22 | Pharmacy Report ---
Pharmacy Glycemic Short Note 2 - Date of Service May 25, 2022 - Glycemic Short BSG Results (Last 24 hours): 05/24/22 05/24/22 05/24/22 14:18 17:22 20:44 Glucose 147 H POC Glucose 142 H 126 H 05/25/22 08:09 Glucose POC Glucose 141 H OUTPATIENT ANTIDIABETIC REGIMEN: * Basaglar 72 units SC AM * Novolog 38 units SC w/ breakfast, 34 units SC with lunch, 38 units SC with dinner + sliding scale (goal 110-140, CF 12, CR 4) * HbA1c = 6.1% (04/16/22) ASSESSMENT: * 61 yo M admitted last evening secondary to a right radius fracture. Pharmacy has been consulted to assist with inpatient glycemic management. Does not appear that any surgical intervention will be taken. Patient is ordered a T1DM diet. Listed as a type 1 diabetic with diagnosis around the age of 40 per previous diabetes visit notes. Behaves more as a type 2. Dosing will be based off previous admission data where patient was well controlled. Chronically on prednisone 15 mg daily. * BSGs upon admission yesterday were: 147-142-126 mg/dL. Received 30 units of Lantus last night and 11 units of Novolog with dinner. * Fasting BSG well controlled at 141 mg/dL this AM. Will continue with Lantus 30 units daily. Plan to move up Lantus dose to noon today with hopes of starting it at 0900 tomorrow to match home dosing. * BSG trended down after dinner Novolog last night. No changes yet but will continue to monitor. PLAN FOR INPATIENT GLYCEMIC CONTROL: * Basal insulin * Lantus 30 units SC daily (give at 1200 today, then 0900 starting tomorrow) * Bolus insulin * NovoLog per scale ACHS or Q6hrs while NPO * Goal Range: Low 110 mg/dL - High 140 mg/dL * Correction Factor: 12 mg/dL/unit * Nutritional / Prandial insulin per carb ratio of 1 unit per 4 grams CHO consumed
[2022-05-25] MEDS: LANTUS PER UNIT CHARGE SQ SCH (12:46)
--- NOTE | 2022-05-25 15:19 | Orthopedic Consultation ---
Date of Consultation May 25, 2022 Assessment & Plan (1) Fracture of metatarsal of left foot, closed: Patient seen, evaluated, and treated. Reviewed X-rays and X-ray findings with Patient. Patient currently non weight bearing to left foot. Patient is candidate for surgical shoe during introduction to return to ambulation in 4-6 weeks with PT assistance. He will not tolerate preferred controlled ankle motion boot or walking cast. Patient understands there may be some displacement of metatarsals including some shortening. Continue conservative care. Patient will follow up in office in 4 weeks upon discharge. Thank you for allowing me to participate in the care of this Patient. (2) Metatarsal stress fracture of left foot: History of Present Illness Attending Physician: Saran Erickson MD History of Present Illness Patient is a 61-year-old male seen at bedside for a recent left foot fracture after fall. Patient PMH (+) for polymyositisdermatomyositis, chronic muscle weakness, DM 1, hypertension, hyperlipidemia. Patient has a history of falls most recently resulting in L1 kyphoplasty by Dr. Lester on 05/07/22 after vertebral fracture. Patient notes upper body weakness from polymyositis preventing him from benefit of utilizing assisted ambulatory devices. . Allergies Allergy/AdvReac Type Severity Reaction Status Date / Time mercaptopurine AdvReac Severe JAUNDICE Verified 05/16/22 11:22 Home Medications Medication Instructions Recorded Confirmed Type multivitamin (Daily Multi-Vitamin 1 tab PO QAM 03/04/19 05/16/22 History tablet) blood sugar diagnostic (OneTouch #10 ea 04/01/19 05/16/22 History Ultra Blue Test Strip) vedolizumab 300 mg intravenous 300 mg IV Q8WK 04/01/19 05/16/22 History solution diphenoxylate-atropine 2.5 1 tab PO QID PRN diarrhea #360 tabs 07/20/19 05/16/22 Rx mg-0.025 mg tablet CPAP Supplies #1 ea 10/08/19 05/16/22 Rx duloxetine 60 mg capsule,delayed 60 mg PO QPM 03/01/20 05/16/22 History release flash glucose scanning reader #1 ea 06/21/20 05/16/22 Rx (FreeStyle [place] 14 Day [place]) lisinopril 5 mg tablet 5 mg PO QAM #90 tabs 11/06/21 05/16/22 Rx flash glucose sensor (FreeStyle #2 ea 12/12/21 05/16/22 Rx [place] 14 Day Sensor kit) zolpidem 12.5 mg tablet,extended 12.5 mg PO HS PRN insomnia #30 tabs 02/13/22 05/16/22 Rx release,multiphase pen needle, diabetic 32 gauge x #500 ea 03/12/22 05/16/22 Rx 532" (BD Ultra-Fine Marsha Pen Needle) gabapentin 300 mg capsule 300 mg PO BID #180 caps 03/15/22 05/16/22 Rx ezetimibe 10 mg tablet 10 mg PO DAILY 04/28/22 05/16/22 History hydrocodone 5 mg-acetaminophen 325 1 tab PO Q6H PRN Pain 04/28/22 05/16/22 History mg tablet diclofenac sodium 1 % topical gel 4 g EXT QID PRN joint pain #100 05/02/22 05/16/22 Rx (Voltaren Arthritis Pain) grams acetaminophen 500 mg tablet 1,000 mg PO BID #30 tabs 05/09/22 05/16/22 Rx (Tylenol Extra Strength) insulin aspart U-100 100 unit/mL See Rx Instructions .Route 05/09/22 05/16/22 Rx subcutaneous solution (Novolog .COMPLEX #10 mL U-100 Insulin aspart) prednisone 5 mg tablet 17 mg PO QAM #90 tabs 05/09/22 05/16/22 Rx insulin glargine 100 unit/mL (3 65 unit subcut QAM 05/16/22 History mL) subcutaneous pen (Basaglar KwikPen U-100 Insulin) trazodone 100 mg tablet 100 mg PO HS #90 tabs 05/23/22 Rx Patient History Medical History Chronic back pain Chronic steroid use Crohn's disease (~08/2021) Diverticulosis Dysfunction of right eustachian tube Elevated hemoglobin A1c Fall in home History of intestinal obstruction History of migraine HLD (hyperlipidemia) HTN (hypertension) Inclusion body myositis Follows with [facility] Rheumatology Mixed conductive and sensorineural hearing loss of right ear with restricted hearing of left ear Osteoarthritis Polymyositis-dermatomyositis Sleep apnea CPAP Statin myopathy Type 1 diabetes mellitus on insulin therapy Urinary retention Wheelchair bound Surgical History History of biopsy muscle History of cholecystectomy History of colonoscopy History of esophagogastroduodenoscopy (EGD) History of incision and drainage (2017) I&D of sebaceous cyst right upper back History of intestinal surgery History of surgery (2017) epidermal cyst excision History of wisdom tooth extraction Family History Unknown Breast cancer Father Diabetes Father Hearing loss Stroke Mother Hypertension Cancer Heart disease Other Allergies No family history of adverse response to anesthesia No family history of bleeding disorder Denies family history of Ovarian cancer Prostate cancer Myocardial infarction Colorectal cancer Social History Smoking Status: Former smoker Tobacco Type: Cigarettes Age Started Using Tobacco: 14; Age Quit Using Tobacco: 17; Second Hand Exposure: No; Hx Alcohol Use: No Hx Substance Use: No Preferred Language: [place] Communication Ability: Effective Visual Impairment: No Limitations Hearing Ability: Normal Addiction Medicine Physician Required: No Beliefs That Will Affect Care: None marital status: Current Living Situation: Spouse current occupational status: employed current occupation: security How many Children do You have: 2 Other Information That Helps Us Care for You: No Feels Safe at Home: Yes Safety Concerns: Feels Safe At This Time Childhood Exposure to Second-Hand Smoke: Yes Diet Comment: regular caffeine: Yes during the past year weight has: remained stable Dental Care, Regularly: Yes Physical Activity Frequency: Does not Exercise Seatbelt Use: always Sunscreen Use: Yes Assistive Devices: Cane, Stair Lift, Walker and Wheelchair Assistive Devices Comment: erin Review of Systems Review of Systems: All systems reviewed & are unremarkable except as noted in HPI & below Physical Exam Constitutional: Patient denies constitutional symptoms. Eyes: normal visual kee by confrontation ENMT: external ear and nose normal, oropharynx normal Respiratory: normal respiratory effort Musculoskeletal: Diffuse left foot pain consistent with injury Skin: Ecchymosis diffuse left foot forefoot. Skin abrasion left medial hallux partial thickness limited to break down of skin. Neurologic: Epicritic sensation intact. Psychiatric: A+Ox3, euthymic affect Results & Data ([facility]) Vital Signs (Past 12 Hours) Vital Signs Temp Pulse Resp BP Pulse Ox O2 Del Method 05/25/22 14:43 36.8 C 92 H 18 112/72 94 Room Air Diagnostic Findings [place], [place] [phone] XRay Report Patient:GAL MEADE Admit Date:05/24/22 MR#:[id number] Address1:[address] [facility] Acct ID:[id number] Address2: Date:[address] [facility] Zip:[place] [address] Age:61 Location:ED Sex:M Room/Bed: Att Phy: Diagnosis:FALL, R ARM & FOOT PAIN Maryellen Phy:Micheal Hathaway III, CRNP Service Date:05/24/22 Satinder Phy: Interpreting Phy:Rakesh Thompson [facility]: Ordering Phy:Teo Rankin DO cc: ~ XR foot LT min 3V routine CLINICAL HISTORY: fall TECHNIQUE: 3 views of the left foot were obtained. Comparison: Comparison is made to left toe radiographs 03/24/2020 FINDINGS: There is an oblique fracture of the first digit metatarsal. Intra-articular extension is not definitely seen. There is also a fracture of the second and third metatarsal necks. Soft tissue swelling is seen about the foot. IMPRESSION: Fractures of the first, second, and third metatarsals. No definite intra- articular extension is seen. There is associated soft tissue swelling. ACT 112: Negative or not required by law. Electronically signed by: Rakesh Thompson M.D. 05/24/2022 1:16 PM Dictated:05/24/22 1311 Transcribed: 05/24/22 [address], [place] [phone] XRay Report Patient:GAL MEADE Admit Date:05/24/22 MR#:[id number] Address1:[address] [facility] Acct ID:[id number] Address2: Date:[address] [facility] Zip:[place] [address] Age:61 Location:ED Sex:M Room/Bed: Att Phy: Diagnosis:FALL, R ARM & FOOT PAIN Maryellen Phy:Micheal Hathaway, ZAHEER, [employer] Service Date:05/24/22 [facility] Phy: Interpreting Phy:Rakesh Thompson MDAdmit Phy: Ordering Phy:Teo Rankin DO cc: ~ XR foot LT min 3V routine CLINICAL HISTORY: fall TECHNIQUE: 3 views of the left foot were obtained. Comparison: Comparison is made to left toe radiographs 03/24/2020 FINDINGS: There is an oblique fracture of the first digit metatarsal. Intra-articular extension is not definitely seen. There is also a fracture of the second and third metatarsal necks. Soft tissue swelling is seen about the foot. IMPRESSION: Fractures of the first, second, and third metatarsals. No definite intra- articular extension is seen. There is associated soft tissue swelling. ACT 112: Negative or not required by law. Electronically signed by: Rakesh Thompson M.D. 05/24/2022 1:16 PM Dictated:05/24/22 1311 Transcribed: 05/24/22 1311 (1) Fracture of metatarsal of left foot, closed Encounter type: initial encounter Fracture alignment: displaced Metatarsal bone: first Qualified Code(s): S92.312A - Displaced fracture of first metatarsal bone, left foot, initial encounter for closed fracture
--- NOTE | 2022-05-25 17:05 | Hospitalist Progress Note ---
Date of Service May 25, 2022 Assessment & Plan (1) Right radial fracture: Plan: - With concomitant supracondylar humeral fracture. - Patient placed in a sling. - Orthopedics on consult, appreciate recs - For now, pain control with rotating ice/heat, scheduled Tylenol, topical Voltaren gel, Stow as needed for breakthrough pain. - Continue medications for recent burst fracture: Gabapentin, Cymbalta, calcitonin spray. - Patient will likely require placement to a SNF upon discharge. - PT/OT to evaluate and treat while admitted. (2) Supracondylar fracture of humerus: Plan: - As above. (3) Metatarsal stress fracture of left foot: Plan: - Pain and swelling -X ray shows fractures of metatarsal Podiatry to evaluate patient. - Pain management as above. (4) Burst fracture of lumbar vertebra: Plan: - Hospitalized 05/04 - 05/[address] Lester on 05/07. - Discharged with Tylenol 1 g twice daily, Stow as needed, gabapentin 300 mg twice daily, Cymbalta 60 mg. - Discharged to [facility] 05/09-05/14 - No longer needs TLSO brace when OOB. (5) Polymyositis-dermatomyositis: Plan: - Follows with [facility] rheumatology. - Continue home prednisone 17 mg daily - If any procedures are performed for the above fractures, may need stress dose steroids at that time. (6) Type 1 diabetes mellitus on insulin therapy: Plan: - A1c 6.1% - Glycemic management consultation to pharmacy, appreciate their recommendations. - Last admission sugars were well controlled with Lantus 30 units in a.m., 20-30 units at night depending on sugar with NovoLog goal range [id number], CF 12, CR 4 (7) Hypertension: Plan: - Continue lisinopril 5 mg in the a.m. (8) Hypercholesterolemia: Plan: - Continue Zetia 10 mg daily. - Patient is statin intolerant. (9) Crohn's disease: Plan: - Entyvio injections q8 weeks--not due for this for 6 more weeks. - Lomotil prn for diarrhea. (10) Insomnia: Plan: - Continue Ambien, trazodone. Plan - SCDs for VTE ppx. - Full Code. will need snf for rehab Admission and Anticipated Discharge Date Admission Date: May 25, 2022 Subjective patient seen and examined, complains of left foot swelling and pain Review of Systems Review of Systems: All systems reviewed are negative, apart from the ones contained in the history. Physical Exam Physical Exam: The patient is awake, alert and oriented 3, well developed and well nourished, normocephalic and atraumatic, lying in bed and in no acute distress. HEENT--PERRL, EOMI, mucous membranes and oropharynx mildly dry Neck--supple. No JVD. No bruits. Thyroid normal, trachea midline, no adenopathy. Heart--normal S1 and S2. No murmurs, rubs or gallops. Lungs--clear bilaterally, no respiratory distress, no accessory muscle use. Abdomen--normal bowel sounds and soft. Mild epigastric and left sided abdominal pain Extremities--right arm in sling, bandage, left foot swelling, edema Dermatologic--normal skin turgor, normal color, no abnormal lymph nodes, no rash. Neurologic--cranial nerves II through XII grossly intact. Rheumatologic--normal range of motion. Psychiatric--normal affect. Results & Data Results & Data ([facility]) Vital Signs (Past 12 Hours) Vital Signs Temp Pulse Resp BP Pulse Ox O2 Del Method 05/25/22 14:43 98.2 F 92 H 18 112/72 94 Room Air PG Care Time/CCT Total # of Minutes Spent Total Time Spent with Patient: Total time spent is greater than 50% in coordination of care (as documented) at patient's floor/unit and/or counseling patient: Coding Level of Care Code 05528 Subseq Hosp Care Lvl 2 Diagnoses Right radial fracture S52.91XA Supracondylar fracture of humerus S42.413A Metatarsal stress fracture of left foot M84.375A Burst fracture of lumbar vertebra S32.001A Polymyositis-dermatomyositis M33.90 Type 1 diabetes mellitus on insulin therapy E10.9 Hypertension I10 Hypercholesterolemia E78.00 Crohn's disease K50.90 Insomnia G47.00 Time Spent (min) 35
[2022-05-25] MEDS: traZODone HCL 100 MG TAB PO SCH (20:25)
[2022-05-25] MEDS: DULoxetine HCL 60 MG CAP PO SCH (20:25)
[2022-05-25] MEDS: ZOLPIDEM TARTRATE 10 MG TAB PO PRN (22:05)
[2022-05-26] MEDS: MULTIVITAMIN TAB PO SCH (07:29)
[2022-05-26] MEDS: GABAPENTIN 300 MG CAP PO SCH ×2 (07:29→20:31)
[2022-05-26] MEDS: EZETIMIBE 10 MG TABLET PO SCH (07:30)
[2022-05-26] MEDS: ACETAMINOPHEN 500 MG TAB PO SCH ×3 (07:30→22:15)
[2022-05-26] MEDS: predniSONE 5 MG TAB PO SCH (07:30)
[2022-05-26] MEDS: lisinopril 5 MG TAB PO SCH (07:30)
[2022-05-26] MEDS: INSULIN ASPART PER UNIT SC SCH ×4 (08:54→20:40)
[2022-05-26] MEDS: LANTUS PER UNIT CHARGE SQ SCH (08:54)
[2022-05-26] MEDS ORDERED: bisacodyL 10 MG SUPP PR ONE (10:49)
--- NOTE | 2022-05-26 11:50 | Hospitalist Progress Note ---
Date of Service May 26, 2022 Assessment & Plan (1) Right radial fracture: Plan: - With concomitant supracondylar humeral fracture. - Patient placed in a sling. - Orthopedics on consult, to continue sling, non weight bearing and outpatient follow up - For now, pain control with rotating ice/heat, scheduled Tylenol, topical Voltaren gel, [place] as needed for breakthrough pain. - Continue medications for recent burst fracture: Gabapentin, Cymbalta, calcitonin spray. - Patient will likely require placement to a SNF upon discharge. - PT/OT to evaluate and treat while admitted. (2) Supracondylar fracture of humerus: Plan: - As above. (3) Metatarsal stress fracture of left foot: Plan: - Pain and swelling -X ray shows fractures of metatarsal - Evaluated by Podiatry, non weight bearing, conservative management, out patient follow up in 4 weeks - Pain management as above. (4) Burst fracture of lumbar vertebra: Plan: - Hospitalized 05/04 - 05/[address] Lester on 05/07. - Discharged with Tylenol 1 g twice daily, [place] as needed, gabapentin 300 mg twice daily, Cymbalta 60 mg. - Discharged to [facility] 05/09-05/14 - No longer needs TLSO brace when OOB. (5) Polymyositis-dermatomyositis: Plan: - Follows with [facility] rheumatology. - Continue home prednisone 17 mg daily - If any procedures are performed for the above fractures, may need stress dose steroids at that time. (6) Type 1 diabetes mellitus on insulin therapy: Plan: - A1c 6.1% - Glycemic management consultation to pharmacy, appreciate their recommendations. - Last admission sugars were well controlled with Lantus 30 units in a.m., 20-30 units at night depending on sugar with NovoLog goal range [id number], CF 12, CR 4 (7) Hypertension: Plan: - BP 130/80 today -Continue lisinopril 5 mg (8) Hypercholesterolemia: Plan: - Continue Zetia 10 mg daily. - Patient is statin intolerant. (9) Crohn's disease: Plan: - Entyvio injections q8 weeks--not due for this for 6 more weeks. - Lomotil prn for diarrhea. (10) Insomnia: Plan: - Continue Ambien, trazodone. Plan - SCDs for VTE ppx. - Full Code. will need snf for rehab Admission and Anticipated Discharge Date Admission Date: May 25, 2022 Subjective patient seen and examined, complains of left foot swelling and pain, but better than yesterday Review of Systems Review of Systems: All systems reviewed are negative, apart from the ones contained in the history. Physical Exam Physical Exam: The patient is awake, alert and oriented 3, well developed and well nourished, normocephalic and atraumatic, lying in bed and in no acute distress. HEENT--PERRL, EOMI, mucous membranes and oropharynx mildly dry Neck--supple. No JVD. No bruits. Thyroid normal, trachea midline, no adenopathy. Heart--normal S1 and S2. No murmurs, rubs or gallops. Lungs--clear bilaterally, no respiratory distress, no accessory muscle use. Abdomen--normal bowel sounds and soft. Mild epigastric and left sided abdominal pain Extremities--right arm in sling, bandage, left foot swelling, edema Dermatologic--normal skin turgor, normal color, no abnormal lymph nodes, no rash. Neurologic--cranial nerves II through XII grossly intact. Rheumatologic--normal range of motion. Psychiatric--normal affect. Results & Data Results & Data ([facility]) Vital Signs (Past 12 Hours) Vital Signs Temp Pulse Pulse Resp BP Pulse Ox O2 Del Method 05/26/22 08:00 98.4 F 72 12 130/80 98 Room Air 05/26/22 07:41 98.4 F 77 16 127/76 99 PG Care Time/CCT Total # of Minutes Spent Total Time Spent with Patient: Total time spent is greater than 50% in coordination of care (as documented) at patient's floor/unit and/or counseling patient: Coding Level of Care Code 93170 Subseq Hosp Care Lvl 2 Diagnoses Right radial fracture S52.91XA Supracondylar fracture of humerus S42.413A Metatarsal stress fracture of left foot M84.375A Burst fracture of lumbar vertebra S32.001A Polymyositis-dermatomyositis M33.90 Type 1 diabetes mellitus on insulin therapy E10.9 Hypertension I10 Hypercholesterolemia E78.00 Crohn's disease K50.90 Insomnia G47.00 Time Spent (min) 35
[2022-05-26] MEDS: traZODone HCL 100 MG TAB PO SCH (20:31)
[2022-05-26] MEDS: DULoxetine HCL 60 MG CAP PO SCH (20:31)
[2022-05-26] MEDS: ZOLPIDEM TARTRATE 10 MG TAB PO PRN (22:13)
[2022-05-27] MEDS: HYDROCODONE/ACETAMOPHEN 5/325MG TAB PO PRN ×3 (03:38→23:06)
[2022-05-27] MEDS: lisinopril 5 MG TAB PO SCH (08:54)
[2022-05-27] MEDS: EZETIMIBE 10 MG TABLET PO SCH (08:54)
[2022-05-27] MEDS: ACETAMINOPHEN 500 MG TAB PO SCH ×2 (08:54→21:11)
[2022-05-27] MEDS: predniSONE 5 MG TAB PO SCH (08:54)
[2022-05-27] MEDS: INSULIN ASPART PER UNIT SC SCH ×4 (08:55→21:16)
[2022-05-27] MEDS: MULTIVITAMIN TAB PO SCH (08:55)
[2022-05-27 08:56] LABS: Hematocrit (blood only) 47.7 % (40.1-51.0); Hemoglobin 16.3 g/dl (14.0-18.0); Mean Corpuscular Hemoglobin 29.8 pg (25.0-34.0); Mean Corpuscular Hgb Conc 34.2 g/dL (32.0-36.0); Mean Corpuscular Volume 87.2 fL (80.0-100.0); Mean Platelet Volume 10.5 fL (9.4-12.4); Platelet Count 271 K/uL (130-400); RDW Coefficient of Variation 13.9 % (11.5-14.5); RDW Standard Deviation 44.2 fL (36.4-46.3); Red Blood Count 5.47 M/uL (4.63-6.08); White Blood Count 10.49 K/ul (4.8-10.8)
[2022-05-27] MEDS: GABAPENTIN 300 MG CAP PO SCH ×2 (08:56→21:11)
[2022-05-27] MEDS ORDERED: LANTUS PER UNIT CHARGE SQ ONE (09:15)
[2022-05-27 09:20] LABS: Anion Gap 8 (3-11); BUN Creatinine Ratio 37.8 (10-20); Blood Urea Nitrogen 14 mg/dl (6-23); Calcium 8.6 mg/dl (8.5-10.1); Carbon Dioxide 26 mmol/L (21-32); Chloride 102 mmol/L (98-107); Creatinine Clr Calc Pharmacy 259.3 ml/min; Est GFR (African American) > 150.0 ml/min; Est GFR (Non-African American) 132.4 ml/min; Glucose 223 mg/dl (70-99(Fasting)); Sodium 136 mmol/L (136-145)
--- NOTE | 2022-05-27 11:35 | Hospitalist Progress Note ---
Date of Service May 27, 2022 Assessment & Plan (1) Right radial fracture: Plan: - With concomitant supracondylar humeral fracture. - Patient placed in a sling. - Orthopedics on consult, to continue sling, non weight bearing and outpatient follow up - For now, pain control with rotating ice/heat, scheduled Tylenol, topical Voltaren gel, [place] as needed for breakthrough pain. - Continue medications for recent burst fracture: Gabapentin, Cymbalta, calcitonin spray. - Patient will likely require placement to a SNF upon discharge. - PT/OT to evaluate and treat while admitted. (2) Metatarsal stress fracture of left foot: Plan: - Pain and swelling -X ray shows fractures of metatarsal - Evaluated by Podiatry, non weight bearing, conservative management, out patient follow up in 4 weeks - Pain management as above. (3) Burst fracture of lumbar vertebra: Plan: - Hospitalized 05/04 - 05/[address] Lester on 05/07. - Discharged with Tylenol 1 g twice daily, [place] as needed, gabapentin 300 mg twice daily, Cymbalta 60 mg. - Discharged to [facility] 05/09-05/14 - No longer needs TLSO brace when OOB. (4) Supracondylar fracture of humerus: Plan: - As above. (5) Urinary retention: Plan: Patient has been retaining urine, as seen on bladder scans Probably due to BPH and limited ambulation Has agreed to an indwelling bhandari Follow up with Urology outpatient (6) Polymyositis-dermatomyositis: Plan: - Follows with [facility] rheumatology. - Continue home prednisone 17 mg daily - If any procedures are performed for the above fractures, may need stress dose steroids at that time. (7) Type 1 diabetes mellitus on insulin therapy: Plan: - A1c 6.1% - Glycemic management consultation to pharmacy, appreciate their recommendations. - Last admission sugars were well controlled with Lantus 30 units in a.m., 20-30 units at night depending on sugar with NovoLog goal range [id number], CF 12, CR 4 (8) Hypertension: Plan: - BP 154/82 today -Continue lisinopril 5 mg (9) Hypercholesterolemia: Plan: - Continue Zetia 10 mg daily. - Patient is statin intolerant. (10) Crohn's disease: Plan: - Entyvio injections q8 weeks--not due for this for 6 more weeks. - Lomotil prn for diarrhea. -Continue steroids (11) Insomnia: Plan: - Continue Ambien, trazodone. Plan - SCDs for VTE ppx. - Full Code. will need snf for rehab when approved, patient unable to adequately take care of himself at home Admission and Anticipated Discharge Date Admission Date: May 25, 2022 Subjective patient seen and examined, complains of left foot swelling and pain, but better than yesterday Review of Systems Review of Systems: All systems reviewed are negative, apart from the ones contained in the history. Physical Exam Physical Exam: The patient is awake, alert and oriented 3, well developed and well nourished, normocephalic and atraumatic, lying in bed and in no acute distress. HEENT--PERRL, EOMI, mucous membranes and oropharynx mildly dry Neck--supple. No JVD. No bruits. Thyroid normal, trachea midline, no adenopathy. Heart--normal S1 and S2. No murmurs, rubs or gallops. Lungs--clear bilaterally, no respiratory distress, no accessory muscle use. Abdomen--normal bowel sounds and soft. Mild epigastric and left sided abdominal pain Extremities--right arm in sling, bandage, left foot swelling, edema Dermatologic--normal skin turgor, normal color, no abnormal lymph nodes, no rash. Neurologic--cranial nerves II through XII grossly intact. Rheumatologic--normal range of motion. Psychiatric--normal affect. Results & Data Results & Data ([facility]) Vital Signs (Past 12 Hours) Vital Signs Temp Pulse Resp BP Pulse Ox 05/27/22 08:00 97.5 F L 93 H 16 154/82 H 97 PG Care Time/CCT Total # of Minutes Spent Total Time Spent with Patient: Total time spent is greater than 50% in coordination of care (as documented) at patient's floor/unit and/or counseling patient: Coding Level of Care Code 89840 Subseq Hosp Care Lvl 2 Diagnoses Right radial fracture S52.91XA Metatarsal stress fracture of left foot M84.375A Burst fracture of lumbar vertebra S32.001A Supracondylar fracture of humerus S42.413A Urinary retention R33.9 Polymyositis-dermatomyositis M33.90 Type 1 diabetes mellitus on insulin therapy E10.9 Hypertension I10 Hypercholesterolemia E78.00 Crohn's disease K50.90 Insomnia G47.00 Time Spent (min) 35
[2022-05-27] MEDS: DULoxetine HCL 60 MG CAP PO SCH (21:09)
[2022-05-27] MEDS: traZODone HCL 100 MG TAB PO SCH (21:11)
[2022-05-27] MEDS: ZOLPIDEM TARTRATE 10 MG TAB PO PRN (23:04)
--- NOTE | 2022-05-28 08:34 | Hospitalist Progress Note ---
Date of Service May 28, 2022 Assessment & Plan (1) Right radial fracture: Plan: 61-year-old male past medical history significant for type 1 diabetes, Crohn's disease, polymyositis-dermatomyositis, hypertension admitted following a fall with resultant right humerus/radius fractures and left foot fractures. Right radial/humeral fracture: - Presented following a fall from standing height; patient states that his legs gave out from underneath him and he crumpled and tried to catch himself with his right arm. - X-rays show nondisplaced supracondylar humeral fracture as well as avulsion fracture of the radial head with associated soft tissue swelling and joint effusion. - Patient placed in a sling. - Orthopedics consulted and appreciate recommendations: Continue splint/simple sling with nonweightbearing to right upper extremity. - Continue pain control with rotating ice/heat, scheduled Tylenol, topical Voltaren gel, and Zenda as needed for breakthrough pain. - PT/OT ordered: SNF recommended on discharge for continued work on ADLs and mobility/strengthening. (2) Supracondylar fracture of humerus: Plan: - See above. (3) Metatarsal stress fracture of left foot: Plan: - Mechanism of fall as described above. - X-rays show fractures of the first through third metatarsals with associated soft tissue swelling. - Evaluated by Podiatry and appreciate recommendations: non weight-bearing to left foot, no surgery at this time, with outpatient follow up in 4 weeks. - Pain management as above. (4) Burst fracture of lumbar vertebra: Plan: - Hospitalized 05/04 - 05/[address] Lester on 05/07. - Discharged with Tylenol 1 g twice daily, Zenda as needed, gabapentin 300 mg twice daily, Cymbalta 60 mg. - Discharged to [facility] 05/09-05/14. - No longer needs TLSO brace when OOB. - Continue medications for recent burst fracture: Gabapentin, Cymbalta, calcitonin spray. -Pain control for acute fractures as described above. (5) Urinary retention: Plan: - Patient has been retaining urine, as seen on bladder scans - Suspected secondary to BPH; Batista placed while admitted and will need follow- up with urology in the outpatient setting. (6) Polymyositis-dermatomyositis: Plan: - Follows with [facility]. - Continue home prednisone 17 mg daily. (7) Type 1 diabetes mellitus on insulin therapy: Plan: - A1c 6.1%. - Glycemic management consultation to pharmacy, appreciate their recommendations. -Continue Lantus 30 units daily, with sliding scale coverage. -DM1 diet. (8) Hypertension: Plan: - BP well controlled on lisinopril daily. (9) Hypercholesterolemia: Plan: - Continue Zetia 10 mg daily. (10) Crohn's disease: Plan: - Patient is on Entyvio injections q8 weeks, and is not due for this for 5 more weeks. - Lomotil prn for diarrhea. - Continue home dose steroids. (11) Insomnia: Plan: - Continue Ambien, trazodone. Plan CODE STATUS: Full code FEN: DM 1 diet DVT prophylaxis: Lovenox 40 subcu daily Dispo: Med/Surg; ultimate plan for discharge to SNF rehab Admission and Anticipated Discharge Date Admission Date: May 25, 2022 Subjective Patient without any acute events overnight. Patient is having difficulty with physical therapy due to his left foot and right arm fractures and increased immobility even from baseline which is typically a struggle. Patient reports relatively good pain control with as needed medications. He reports his last bowel movement was 2 days ago; normal for him with his Crohn's disease is at least once per day. He denies nausea or vomiting, chest pain, shortness of breath. Review of Systems Constitutional: no fever and no chills Respiratory: no cough and no dyspnea Cardiovascular: no chest pain and no palpitations Gastrointestinal: no abdominal pain, no nausea and no vomiting Physical Exam Constitutional: WD/WN, vitals as above Respiratory: normal respiratory effort, lungs clear to auscultation Cardiovascular: RRR, no murmur, no edema Gastrointestinal (Abdomen): normal bowel sounds, soft, nontender, no hepatosplenomegaly Skin: no rashes, warm and dry Psychiatric: A+Ox3, euthymic affect Results & Data Results & Data ([facility]) Vital Signs (Past 12 Hours) Vital Signs Temp Pulse Resp BP Pulse Ox O2 Del Method 05/28/22 07:26 36.4 C L 77 18 135/74 98 Room Air 05/27/22 21:18 36.7 C 94 H 20 134/79 96 Room Air PG Care Time/CCT Total # of Minutes Spent Total Time Spent with Patient: Total time spent is greater than 50% in coordination of care (as documented) at patient's floor/unit and/or counseling patient: Coding Level of Care Code 36615 Subseq Hosp Care Lvl 3 Diagnoses Right radial fracture S52.91XA Supracondylar fracture of humerus S42.413A Metatarsal stress fracture of left foot M84.375A Burst fracture of lumbar vertebra S32.001A Urinary retention R33.9 Polymyositis-dermatomyositis M33.90 Type 1 diabetes mellitus on insulin therapy E10.9 Hypertension I10 Hypercholesterolemia E78.00 Crohn's disease K50.90 Insomnia G47.00
[2022-05-28] MEDS: predniSONE 5 MG TAB PO SCH (08:37)
[2022-05-28] MEDS: GABAPENTIN 300 MG CAP PO SCH ×2 (08:37→20:57)
[2022-05-28] MEDS: MULTIVITAMIN TAB PO SCH (08:37)
[2022-05-28] MEDS: ACETAMINOPHEN 500 MG TAB PO SCH ×2 (08:37→20:58)
[2022-05-28] MEDS: EZETIMIBE 10 MG TABLET PO SCH (08:37)
[2022-05-28] MEDS: lisinopril 5 MG TAB PO SCH (08:37)
[2022-05-28 08:40] LABS: Hematocrit (blood only) 45.4 % (40.1-51.0); Hemoglobin 15.5 g/dl (14.0-18.0); Mean Corpuscular Hemoglobin 29.6 pg (25.0-34.0); Mean Corpuscular Hgb Conc 34.1 g/dL (32.0-36.0); Mean Corpuscular Volume 86.8 fL (80.0-100.0); Mean Platelet Volume 10.4 fL (9.4-12.4); Platelet Count 274 K/uL (130-400); RDW Coefficient of Variation 13.9 % (11.5-14.5); RDW Standard Deviation 44.2 fL (36.4-46.3); Red Blood Count 5.23 M/uL (4.63-6.08); White Blood Count 11.14 K/ul (4.8-10.8)
[2022-05-28] MEDS: INSULIN ASPART PER UNIT SC SCH ×4 (08:42→20:59)
[2022-05-28] MEDS: LANTUS PER UNIT CHARGE SQ SCH (08:43)
[2022-05-28 09:12] LABS: Anion Gap 5 (3-11); BUN Creatinine Ratio 42.1 (10-20); Blood Urea Nitrogen 16 mg/dl (6-23); Calcium 8.5 mg/dl (8.5-10.1); Carbon Dioxide 31 mmol/L (21-32); Chloride 102 mmol/L (98-107); Creatinine Clr Calc Pharmacy 252.5 ml/min; Est GFR (African American) > 150.0 ml/min; Est GFR (Non-African American) 130.9 ml/min; Glucose 166 mg/dl (70-99(Fasting)); Sodium 138 mmol/L (136-145)
--- NOTE | 2022-05-28 09:36 | Pharmacy Report ---
Pharmacy Glycemic Short Note 2 - Date of Service May 28, 2022 - Glycemic Short BSG Results (Last 24 hours): 05/27/22 05/27/22 05/27/22 12:37 17:11 21:07 Glucose POC Glucose 229 H 228 H 229 H 05/28/22 05/28/22 08:03 08:11 Glucose 166 H POC Glucose 73 OUTPATIENT ANTIDIABETIC REGIMEN: * Basaglar 72 units SC AM * Novolog 38 units SC w/ breakfast, 34 units SC with lunch, 38 units SC with dinner + sliding scale (goal 110-140, CF 12, CR 4) * HbA1c = 6.1% (04/16/22) ASSESSMENT: 05/28/22 * BSGs elevated throughout the day yesterday, >200 mg/dL * Fasting BSG surprisingly much lower today at 73 mg/dL, patient did receive increased basal dose yesterday, but still significantly below reported home regimen * Given hyperglycemia yesterday, will continue tightened Novolog parameters * Will decrease basal insulin back to 30 units today given lower fasting BSG today * If persistent hyperglycemia again today, will tighten AM Novolog parameters tomorrow Background: * 61 yo M admitted last evening secondary to a right radius fracture. Pharmacy has been consulted to assist with inpatient glycemic management. Does not appear that any surgical intervention will be taken. Patient is ordered a T1DM diet. Listed as a type 1 diabetic with diagnosis around the age of 40 per previous diabetes visit notes. Behaves more as a type 2. Dosing will be based off previous admission data where patient was well controlled. Chronically on prednisone 15 mg daily. * BSGs upon admission yesterday were: 147-142-126 mg/dL. Received 30 units of Lantus last night and 11 units of Novolog with dinner. * Fasting BSG well controlled at 141 mg/dL this AM. Will continue with Lantus 30 units daily. Plan to move up Lantus dose to noon today with hopes of starting it at 0900 tomorrow to match home dosing. * BSG trended down after dinner Novolog last night. No changes yet but will continue to monitor. PLAN FOR INPATIENT GLYCEMIC CONTROL: * Basal insulin * Lantus 30 units SC daily * Bolus insulin * NovoLog per scale ACHS or Q6hrs while NPO * Goal Range: Low 110 mg/dL - High 140 mg/dL * Correction Factor: 12 mg/dL/unit * Nutritional / Prandial insulin per carb ratio of 1 unit per 2.5 grams CHO consumed
[2022-05-28] MEDS: HYDROCODONE/ACETAMOPHEN 5/325MG TAB PO PRN ×3 (10:28→23:16)
[2022-05-28] MEDS: traZODone HCL 100 MG TAB PO SCH (20:57)
[2022-05-28] MEDS: ENOXAPARIN INJ 40 MG/0.4 ML SYR SQ SCH (20:57)
[2022-05-28] MEDS: DULoxetine HCL 60 MG CAP PO SCH (20:57)
[2022-05-28] MEDS: ZOLPIDEM TARTRATE 10 MG TAB PO PRN (22:33)
[2022-05-29 06:15] LABS: Hematocrit (blood only) 43.9 % (40.1-51.0); Mean Corpuscular Hemoglobin 29.4 pg (25.0-34.0); Mean Corpuscular Hgb Conc 34.2 g/dL (32.0-36.0); Mean Corpuscular Volume 86.1 fL (80.0-100.0); Mean Platelet Volume 10.3 fL (9.4-12.4); Platelet Count 269 K/uL (130-400); RDW Coefficient of Variation 13.8 % (11.5-14.5); RDW Standard Deviation 43.4 fL (36.4-46.3); White Blood Count 10.59 K/ul (4.8-10.8)
[2022-05-29] MEDS: INSULIN ASPART PER UNIT SC SCH ×4 (08:31→21:24)
[2022-05-29] MEDS: LANTUS PER UNIT CHARGE SQ SCH (08:32)
[2022-05-29] MEDS: ACETAMINOPHEN 500 MG TAB PO SCH ×2 (08:32→20:59)
[2022-05-29] MEDS: HYDROCODONE/ACETAMOPHEN 5/325MG TAB PO PRN (08:38)
[2022-05-29] MEDS: GABAPENTIN 300 MG CAP PO SCH ×2 (08:38→21:00)
[2022-05-29] MEDS: lisinopril 5 MG TAB PO SCH (08:38)
[2022-05-29] MEDS: MULTIVITAMIN TAB PO SCH (08:38)
[2022-05-29] MEDS: predniSONE 5 MG TAB PO SCH (08:38)
[2022-05-29] MEDS: EZETIMIBE 10 MG TABLET PO SCH (08:38)
[2022-05-29] MEDS: ENOXAPARIN INJ 40 MG/0.4 ML SYR SQ SCH (08:42)
--- NOTE | 2022-05-29 10:13 | Hospitalist Progress Note ---
Date of Service May 29, 2022 Assessment & Plan (1) Right radial fracture: Plan: 61-year-old male past medical history significant for type 1 diabetes, Crohn's disease, polymyositis-dermatomyositis, hypertension admitted following a fall with resultant right humerus/radius fractures and left foot fractures. Right radial/humeral fracture: - Presented following a fall from standing height; patient states that his legs gave out from underneath him and he crumpled and tried to catch himself with his right arm. - X-rays show nondisplaced supracondylar humeral fracture as well as avulsion fracture of the radial head with associated soft tissue swelling and joint effusion. - Patient placed in a sling. - Orthopedics consulted and appreciate recommendations: Continue splint/simple sling with nonweightbearing to right upper extremity. - Continue pain control with rotating ice/heat, scheduled Tylenol, topical Voltaren gel, and Percocet as needed for breakthrough pain. - PT/OT ordered: SNF recommended on discharge for continued work on ADLs and mobility/strengthening. Physical therapy is proving to be challenging due to patient's baseline generalized weakness, and now inability to use to his limbs for support. (2) Supracondylar fracture of humerus: Plan: - See above. (3) Metatarsal stress fracture of left foot: Plan: - Mechanism of fall as described above. - X-rays show fractures of the first through third metatarsals with associated soft tissue swelling. - Evaluated by Podiatry and appreciate recommendations: non weight-bearing to left foot, no surgery at this time, with outpatient follow up in 4 weeks. - Pain management as above. - Patient complaining of burning in left lower extremity today it is worse than baseline. He also has increased swelling in the left lower extremity compared to the right. Doppler study performed which ruled out DVT. - Suspect burning is secondary to skin stretching from swelling and fractures. Continue gabapentin, pain control as described above. (4) Burst fracture of lumbar vertebra: Plan: - Hospitalized 05/04 - 05/[address] Lester on 05/07. - Discharged with Tylenol 1 g twice daily, gabapentin 300 mg twice daily, Cymbalta 60 mg. - Discharged to [facility] 05/09-05/14. - No longer needs TLSO brace when OOB. - Continue medications for recent burst fracture: Gabapentin, Cymbalta, calcitonin spray. -Pain control for acute fractures as described above. (5) Urinary retention: Plan: - Patient has been retaining urine, as seen on bladder scans. - Suspected secondary to BPH; Batista placed while admitted and will need follow- up with urology in the outpatient setting. (6) Polymyositis-dermatomyositis: Plan: - Follows with [facility]. - Continue home prednisone 17 mg daily. (7) Type 1 diabetes mellitus on insulin therapy: Plan: - A1c 6.1%. - Glycemic management consultation to pharmacy; appreciate their recommendations. - Continue Lantus 30 units daily, with sliding scale coverage. - DM1 diet. (8) Hypertension: Plan: - BP well controlled on lisinopril daily. (9) Hypercholesterolemia: Plan: - Continue Zetia 10 mg daily. (10) Crohn's disease: Plan: - Patient is on Entyvio injections q8 weeks, and is not due for this for 5 more weeks. - Lomotil prn for diarrhea. - Continue home dose steroids. (11) Insomnia: Plan: - Continue Ambien, trazodone. Plan CODE STATUS: Full code FEN: DM 1 diet DVT prophylaxis: Lovenox 40 subcu daily Dispo: Med/Surg; ultimate plan for discharge to SNF rehab Admission and Anticipated Discharge Date Admission Date: May 25, 2022 Subjective No acute events overnight. Patient reports an increase in burning sensation in his left foot on the dorsal aspect. He denies fevers or chills overnight, chest pain, trouble breathing. He also notes that oxycodone has been more effective than previous admissions for his pain control, and requests his pain medication be transitioned to this. Review of Systems Constitutional: no fever and no chills Respiratory: no cough and no dyspnea Cardiovascular: no chest pain and no palpitations Gastrointestinal: no abdominal pain, no nausea and no vomiting Physical Exam Constitutional: WD/WN, vitals as above Respiratory: normal respiratory effort, lungs clear to auscultation Cardiovascular: RRR, no murmur, no edema Gastrointestinal (Abdomen): normal bowel sounds, soft, nontender, no hepatosplenomegaly Skin: Patient with significant ecchymosis and swelling over the dorsal and medial aspects of his left foot. Reports a burning sensation with palpation of the dorsal part of his foot near the ankle. No calf tenderness. Left lower extremity is somewhat more swollen than the right. Psychiatric: A+Ox3, euthymic affect Results & Data Results & Data ([facility]) Vital Signs (Past 12 Hours) Vital Signs Temp Pulse Resp BP Pulse Ox O2 Del Method 05/29/22 08:23 36.4 C L 78 16 145/83 H 100 Room Air 05/28/22 22:45 36.9 C 80 18 128/71 96 Room Air PG Care Time/CCT Total # of Minutes Spent Total Time Spent with Patient: Total time spent is greater than 50% in coordination of care (as documented) at patient's floor/unit and/or counseling patient: Coding Level of Care Code 76464 Subseq Hosp Care Lvl 3 Diagnoses Right radial fracture S52.91XA Supracondylar fracture of humerus S42.413A Metatarsal stress fracture of left foot M84.375A Burst fracture of lumbar vertebra S32.001A Urinary retention R33.9 Polymyositis-dermatomyositis M33.90 Type 1 diabetes mellitus on insulin therapy E10.9 Hypertension I10 Hypercholesterolemia E78.00 Crohn's disease K50.90 Insomnia G47.00
[2022-05-29] MEDS ORDERED: HYDROmorphone INJ 0.5 MG/0.5 ML SYR IV PRN (13:21)
[2022-05-29] MEDS: oxyCODONE/ACETAMINOPHEN 10-325 TAB PO PRN ×3 (13:51→22:45)
--- NOTE | 2022-05-29 15:15 | Ultrasound Report ---
LEFT LOWER EXTREMITY VENOUS DOPPLER HISTORY: Left Foot swelling. COMPARISON STUDY: None. FINDINGS: There is normal compressibility, flow, and augmentation within the left lower extremity carole p venous system. IMPRESSION: No DVT within the left lower extremity. ACT 112: Negative or not required by law. Electronically signed by: Luis Alfredo Lopez M.D. 05/29/2022 3:14 PM
[2022-05-29] MEDS: DULoxetine HCL 60 MG CAP PO SCH (21:00)
[2022-05-29] MEDS: traZODone HCL 100 MG TAB PO SCH (21:00)
[2022-05-29] MEDS: ZOLPIDEM TARTRATE 10 MG TAB PO PRN (22:45)
[2022-05-30 06:27] LABS: Hematocrit (blood only) 44.1 % (40.1-51.0); Hemoglobin 15.1 g/dl (14.0-18.0); Mean Corpuscular Hemoglobin 29.7 pg (25.0-34.0); Mean Corpuscular Hgb Conc 34.2 g/dL (32.0-36.0); Mean Corpuscular Volume 86.6 fL (80.0-100.0); Mean Platelet Volume 10.4 fL (9.4-12.4); Platelet Count 270 K/uL (130-400); RDW Standard Deviation 44.3 fL (36.4-46.3); Red Blood Count 5.09 M/uL (4.63-6.08)
[2022-05-30 06:52] LABS: BUN Creatinine Ratio 35.7 (10-20); Calcium 8.7 mg/dl (8.5-10.1); Creatinine Clr Calc Pharmacy 228.4 ml/min; Est GFR (African American) 145.6 ml/min; Est GFR (Non-African American) 125.7 ml/min; Potassium 4.1 mmol/L (3.5-5.1)
--- NOTE | 2022-05-30 08:29 | Hospitalist Progress Note ---
Date of Service May 30, 2022 Assessment & Plan (1) Right radial fracture: Plan: 61-year-old male past medical history significant for type 1 diabetes, Crohn's disease, polymyositis-dermatomyositis, hypertension admitted following a fall with resultant right humerus/radius fractures and left foot fractures. Right radial/humeral fracture: - Presented following a fall from standing height; patient states that his legs gave out from underneath him and he crumpled and tried to catch himself with his right arm. - X-rays show nondisplaced supracondylar humeral fracture as well as avulsion fracture of the radial head with associated soft tissue swelling and joint effusion. - Patient placed in a sling. - Orthopedics consulted and appreciate recommendations: Continue splint/simple sling with nonweightbearing to right upper extremity. - Continue pain control with rotating ice/heat, scheduled Tylenol, topical Voltaren gel, and Percocet as needed for breakthrough pain. - PT/OT ordered: SNF recommended on discharge for continued work on ADLs and mobility/strengthening. (2) Supracondylar fracture of humerus: Plan: - See above. (3) Metatarsal stress fracture of left foot: Plan: - Mechanism of fall as described above. - X-rays show fractures of the first through third metatarsals with associated soft tissue swelling. - Evaluated by Podiatry and appreciate recommendations: non weight-bearing to left foot, no surgery at this time, with outpatient follow up in 4 weeks. - Pain management as above. - Patient complaining of burning in left lower extremity today it is worse than baseline. He also has increased swelling in the left lower extremity compared to the right. Doppler study performed which ruled out DVT. - Suspect burning is secondary to skin stretching from swelling and fractures. Continue gabapentin, pain control as described above. (4) Burst fracture of lumbar vertebra: Plan: - Hospitalized 05/04 - 05/[address] Lester on 05/07. - Discharged with Tylenol 1 g twice daily, gabapentin 300 mg twice daily, Cymbalta 60 mg. - Discharged to [facility] 05/09-05/14. - No longer needs TLSO brace when OOB. - Continue medications for recent burst fracture: Gabapentin, Cymbalta, calcitonin spray. -Pain control for acute fractures as described above. (5) Urinary retention: Plan: - Patient has been retaining urine, as seen on bladder scans. - Suspected secondary to BPH; Batista placed while admitted and will need follow- up with urology in the outpatient setting. (6) Polymyositis-dermatomyositis: Plan: - Follows with [facility]. - Continue home prednisone 17 mg daily. (7) Type 1 diabetes mellitus on insulin therapy: Plan: - A1c 6.1%. - Glycemic management consultation to pharmacy; appreciate their recommendations. - Continue Lantus 30 units daily, with sliding scale coverage. - DM1 diet. (8) Hypertension: Plan: - BP well controlled on lisinopril daily. (9) Hypercholesterolemia: Plan: - Continue Zetia 10 mg daily. (10) Crohn's disease: Plan: - Patient is on Entyvio injections q8 weeks, and is not due for this for 5 more weeks. - Lomotil prn for diarrhea. - Continue home dose steroids. (11) Insomnia: Plan: - Continue Ambien, trazodone. (12) Neuropathy: Plan: Patient has a history of diabetic neuropathy and bilateral feet, however reports that the tingling/burning sensation has been worse since his fall on his left foot in particular. Patient's skin very sensitive and reports burning sensation with light touch as well as burning/tingling sensation at rest. Suspect that this increase in symptoms is secondary to skin stretch from swelling from multiple foot fractures. Blood sugars have been under good control. Will increase gabapentin to 300 mg 3 times daily to see if this improves this pain. I also anticipate that this pain will get better as his foot swelling recedes. Plan CODE STATUS: Full code FEN: DM 1 diet DVT prophylaxis: Lovenox 40 subcu daily Dispo: Med/Surg; ultimate plan for discharge to SNF rehab Admission and Anticipated Discharge Date Admission Date: May 25, 2022 Subjective Overnight patient does endorse continued burning sensation in the dorsal left foot, worsened from baseline however not worse than yesterday. Otherwise does not endorse any complaints. Review of Systems Constitutional: no fever and no chills Respiratory: no cough and no dyspnea Cardiovascular: no chest pain and no palpitations Gastrointestinal: no abdominal pain, no nausea and no vomiting Physical Exam Constitutional: WD/WN, vitals as above Respiratory: normal respiratory effort, lungs clear to auscultation Cardiovascular: RRR no murmurs Gastrointestinal (Abdomen): normal bowel sounds, soft, nontender, no hepatosplenomegaly Skin: no rashes, warm and dry Patient with ecchymosis and swelling over the dorsal and medial aspects of his left foot. Still endorses burning sensation with palpation of the dorsal aspect of his foot near the ankle. No calf tender ness. Left lower extremity is somewhat more swollen than the right in the foot and ankle areas in particular. Psychiatric: A+Ox3, euthymic affect Results & Data Results & [facility] ([facility] Vital Signs (Past 12 Hours) Vital Signs Temp Pulse Resp BP Pulse Ox O2 Del Method 05/30/22 07:17 36.6 C 69 18 156/91 H 99 Room Air 05/29/22 23:47 Room Air 05/29/22 22:46 36.9 C 77 20 137/73 97 Room Air PG Care Time/CCT Total # of Minutes Spent Total Time Spent with Patient: Total time spent is greater than 50% in coordination of care (as documented) at patient's floor/unit and/or counseling patient: Coding Level of Care Code 77392 Subseq Hosp Care Lvl 2 Diagnoses Right radial fracture S52.91XA Supracondylar fracture of humerus S42.413A Metatarsal stress fracture of left foot M84.375A Burst fracture of lumbar vertebra S32.001A Urinary retention R33.9 Polymyositis-dermatomyositis M33.90 Type 1 diabetes mellitus on insulin therapy E10.9 Hypertension I10 Hypercholesterolemia E78.00 Crohn's disease K50.90 Insomnia G47.00 Neuropathy G62.9
[2022-05-30] MEDS: INSULIN ASPART PER UNIT SC SCH ×4 (09:18→21:46)
[2022-05-30] MEDS: LANTUS PER UNIT CHARGE SQ SCH (09:22)
[2022-05-30] MEDS: oxyCODONE/ACETAMINOPHEN 10-325 TAB PO PRN ×3 (09:27→19:58)
[2022-05-30] MEDS: ACETAMINOPHEN 500 MG TAB PO SCH ×2 (09:32→21:21)
[2022-05-30] MEDS: EZETIMIBE 10 MG TABLET PO SCH (09:34)
[2022-05-30] MEDS: GABAPENTIN 300 MG CAP PO SCH ×3 (09:34→20:51)
[2022-05-30] MEDS: MULTIVITAMIN TAB PO SCH (09:35)
[2022-05-30] MEDS: lisinopril 5 MG TAB PO SCH (09:35)
[2022-05-30] MEDS: ENOXAPARIN INJ 40 MG/0.4 ML SYR SQ SCH (09:36)
[2022-05-30] MEDS: predniSONE 5 MG TAB PO SCH (09:36)
[2022-05-30] MEDS: POLYETHYLENE (MIRALAX) 17 GM PACK PO SCH (17:40)
[2022-05-30] MEDS: traZODone HCL 100 MG TAB PO SCH (20:51)
[2022-05-30] MEDS: DULoxetine HCL 60 MG CAP PO SCH (20:51)
[2022-05-30] MEDS: ZOLPIDEM TARTRATE 10 MG TAB PO PRN (22:36)
[2022-05-31 07:44] LABS: Hematocrit (blood only) 44.9 % (40.1-51.0); Hemoglobin 15.1 g/dl (14.0-18.0); Mean Corpuscular Hemoglobin 29.5 pg (25.0-34.0); Mean Corpuscular Hgb Conc 33.6 g/dL (32.0-36.0); Mean Corpuscular Volume 87.9 fL (80.0-100.0); Mean Platelet Volume 10.1 fL (9.4-12.4); Platelet Count 273 K/uL (130-400); RDW Standard Deviation 44.8 fL (36.4-46.3); Red Blood Count 5.11 M/uL (4.63-6.08); White Blood Count 10.24 K/ul (4.8-10.8)
[2022-05-31 08:04] LABS: Anion Gap 4 (3-11); BUN Creatinine Ratio 42.9 (10-20); Blood Urea Nitrogen 15 mg/dl (6-23); Calcium 8.7 mg/dl (8.5-10.1); Carbon Dioxide 32 mmol/L (21-32); Chloride 102 mmol/L (98-107); Creatinine Clr Calc Pharmacy 274.1 ml/min; Est GFR (African American) > 150.0 ml/min; Est GFR (Non-African American) 135.4 ml/min; Glucose 163 mg/dl (70-99(Fasting)); Sodium 138 mmol/L (136-145)
[2022-05-31] MEDS: INSULIN ASPART PER UNIT SC SCH ×4 (08:48→21:05)
[2022-05-31] MEDS: predniSONE 5 MG TAB PO SCH (08:49)
[2022-05-31] MEDS: POLYETHYLENE (MIRALAX) 17 GM PACK PO SCH (08:49)
[2022-05-31] MEDS: ACETAMINOPHEN 500 MG TAB PO SCH ×2 (08:49→21:05)
[2022-05-31] MEDS: LANTUS PER UNIT CHARGE SQ SCH (08:50)
[2022-05-31] MEDS: GABAPENTIN 300 MG CAP PO SCH ×3 (08:50→21:06)
[2022-05-31] MEDS: EZETIMIBE 10 MG TABLET PO SCH (08:50)
[2022-05-31] MEDS: ENOXAPARIN INJ 40 MG/0.4 ML SYR SQ SCH (08:50)
[2022-05-31] MEDS: lisinopril 5 MG TAB PO SCH (08:50)
[2022-05-31] MEDS: MULTIVITAMIN TAB PO SCH (08:50)
[2022-05-31] MEDS: oxyCODONE/ACETAMINOPHEN 5mg/325mg TAB PO PRN ×3 (08:58→22:43)
--- NOTE | 2022-05-31 09:05 | Hospitalist Progress Note ---
Date of Service May 31, 2022 Assessment & Plan (1) Right radial fracture: Plan: 61-year-old male past medical history significant for type 1 diabetes, Crohn's disease, polymyositis-dermatomyositis, hypertension admitted following a fall with resultant right humerus/radius fractures and left foot fractures. Right radial/humeral fracture: - Presented following a fall from standing height; patient states that his legs gave out from underneath him and he crumpled and tried to catch himself with his right arm. - X-rays show nondisplaced supracondylar humeral fracture as well as avulsion fracture of the radial head with associated soft tissue swelling and joint effusion. - Patient placed in a sling. - Orthopedics consulted and appreciate recommendations: Continue splint/simple sling with nonweightbearing to right upper extremity. - Continue pain control with rotating ice/heat, scheduled Tylenol, topical Voltaren gel, and Percocet as needed for breakthrough pain. - PT/OT ordered: SNF recommended on discharge for continued work on ADLs and mobility/strengthening. (2) Supracondylar fracture of humerus: Plan: - See above. (3) Metatarsal stress fracture of left foot: Plan: - Mechanism of fall as described above. - X-rays show fractures of the first through third metatarsals with associated soft tissue swelling. - Evaluated by Podiatry and appreciate recommendations: non weight-bearing to left foot, no surgery at this time, with outpatient follow up in 4 weeks. - Pain management as above. - Patient complaining of burning in left lower extremity that today is improved. Continue increased dose of gabapentin for neuropathic pain as it seems that this may be helping. Pain control otherwise as described above. (4) Burst fracture of lumbar vertebra: Plan: - Hospitalized 05/04 - 05/[address] Lester on 05/07. - Discharged to [facility] 05/09-05/14. - No longer needs TLSO brace when OOB. - Continue medications for recent burst fracture: Gabapentin, Cymbalta, calcitonin spray. - Pain control for acute fractures as described above. (5) Urinary retention: Plan: - Patient has been retaining urine, as seen on bladder scans. - Suspected secondary to BPH; Batista placed while admitted and will need follow- up with urology in the outpatient setting. (6) Polymyositis-dermatomyositis: Plan: - Follows with [facility]. - Continue home prednisone 17 mg daily. (7) Type 1 diabetes mellitus on insulin therapy: Plan: - A1c 6.1%. - Glycemic management consultation to pharmacy; appreciate their recommendations. - Continue Lantus 30 units daily, with sliding scale coverage. - DM1 diet. (8) Hypertension: Plan: - BP well controlled on lisinopril daily. (9) Hypercholesterolemia: Plan: - Continue Zetia 10 mg daily. (10) Crohn's disease: Plan: - Patient is on Entyvio injections q8 weeks, and is not due for this for 5 more weeks. - Lomotil prn for diarrhea. - Continue home dose steroids. (11) Insomnia: Plan: - Continue Ambien, trazodone. (12) Neuropathy: Plan: Patient has a history of diabetic neuropathy and bilateral feet, however reports that the tingling/burning sensation has been worse since his fall on his left foot in particular. Patient's skin very sensitive and reports burning sensation with light touch as well as burning/tingling sensation at rest. Suspect that this increase in symptoms is secondary to skin stretch from swelling from multiple foot fractures. Blood sugars have been under good control. Continue gabapentin to 300 mg 3 times daily as this seems to be improving pain. I also anticipate that this pain will get better as his foot swelling recedes. (13) Constipated: Plan: - Continue MiraLAX. -We will add Dulcolax suppository given still with no BM. Plan CODE STATUS: Full code FEN: DM 1 diet DVT prophylaxis: Lovenox 40 subcu daily Dispo: Med/Surg; ultimate plan for discharge to SNF rehab Admission and Anticipated Discharge Date Admission Date: May 25, 2022 Subjective No acute events overnight. Reports that his burning sensation in his left lower extremity may be mildly improved today as compared to yesterday. He has not had a bowel movement for the last several days despite using MiraLAX yesterday and today. Review of Systems 2 Constitutional: no fever and no chills Respiratory: no cough and no dyspnea Cardiovascular: no chest pain and no palpitations Gastrointestinal: no abdominal pain, no nausea and no vomiting Physical Exam Constitutional: WD/WN, vitals as above Respiratory: normal respiratory effort, lungs clear to auscultation Cardiovascular: RRR, no murmur, no edema Gastrointestinal (Abdomen): normal bowel sounds, soft, nontender, no hepatosplenomegaly Musculoskeletal: Sling in place to right arm Skin: no rashes, warm and dry Psychiatric: A+Ox3, euthymic affect Results & Data Results & Data ([facility]) Vital Signs (Past 12 Hours) Vital Signs Temp Pulse Resp BP Pulse Ox O2 Del Method 05/31/22 07:41 36.5 C 80 16 150/81 H 95 Room Air 05/30/22 23:18 36.6 C 67 20 150/90 H 95 Room Air 05/30/22 22:15 Room Air PG Care Time/CCT Total # of Minutes Spent Total Time Spent with Patient: Total time spent is greater than 50% in coordination of care (as documented) at patient's floor/unit and/or counseling patient: Coding Level of Care Code 09443 Subseq Hosp Care Lvl 2 Diagnoses Right radial fracture S52.91XA Supracondylar fracture of humerus S42.413A Metatarsal stress fracture of left foot M84.375A Burst fracture of lumbar vertebra S32.001A Urinary retention R33.9 Polymyositis-dermatomyositis M33.90 Type 1 diabetes mellitus on insulin therapy E10.9 Hypertension I10 Hypercholesterolemia E78.00 Crohn's disease K50.90 Insomnia G47.00 Neuropathy G62.9 Constipated K59.00
--- NOTE | 2022-05-31 09:09 | Pharmacy Report ---
Pharmacy Glycemic Short Note 2 - Date of Service May 31, 2022 - Glycemic Short BSG Results (Last 24 hours): 05/30/22 05/30/22 05/30/22 12:00 16:58 20:40 Glucose POC Glucose 146 H 138 H 125 H 05/31/22 05/31/22 07:22 08:14 Glucose 163 H POC Glucose 135 H OUTPATIENT ANTIDIABETIC REGIMEN: * Basaglar 72 units SC AM * Novolog 38 units SC w/ breakfast, 34 units SC with lunch, 38 units SC with dinner + sliding scale (goal 110-140, CF 12, CR 4) * HbA1c = 6.1% (04/16/22) ASSESSMENT: 05/31/22 * Blood sugars well controlled over past 72 hours, CR tightened to 2 on 05/29, no changes for insulin needed at this time * Patient looking for placement, possible [facility] 05/28/22 * BSGs elevated throughout the day yesterday, >200 mg/dL * Fasting BSG surprisingly much lower today at 73 mg/dL, patient did receive increased basal dose yesterday, but still significantly below reported home regimen * Given hyperglycemia yesterday, will continue tightened Novolog parameters * Will decrease basal insulin back to 30 units today given lower fasting BSG today * If persistent hyperglycemia again today, will tighten AM Novolog parameters tomorrow Background: * 61 yo M admitted last evening secondary to a right radius fracture. Pharmacy has been consulted to assist with inpatient glycemic management. Does not appear that any surgical intervention will be taken. Patient is ordered a T1DM diet. Listed as a type 1 diabetic with diagnosis around the age of 40 per previous diabetes visit notes. Behaves more as a type 2. Dosing will be based off previous admission data where patient was well controlled. Chronically on prednisone 15 mg daily. * BSGs upon admission yesterday were: 147-142-126 mg/dL. Received 30 units of Lantus last night and 11 units of Novolog with dinner. * Fasting BSG well controlled at 141 mg/dL this AM. Will continue with Lantus 30 units daily. Plan to move up Lantus dose to noon today with hopes of starting it at 0900 tomorrow to match home dosing. * BSG trended down after dinner Novolog last night. No changes yet but will continue to monitor. PLAN FOR INPATIENT GLYCEMIC CONTROL: * Basal insulin * Lantus 30 units SC daily * Bolus insulin * NovoLog per scale ACHS or Q6hrs while NPO * Goal Range: Low 110 mg/dL - High 140 mg/dL * Correction Factor: 12 mg/dL/unit * Nutritional / Prandial insulin per carb ratio of 1 unit per 2 grams CHO consumed
[2022-05-31] MEDS: HYDROmorphone INJ 1 MG/ML SYRINGE IV PRN ×3 (12:47→19:56)
[2022-05-31] MEDS ORDERED: bisacodyL 10 MG SUPP PR PRN (17:44)
[2022-05-31] MEDS: traZODone HCL 100 MG TAB PO SCH (21:07)
[2022-05-31] MEDS: DULoxetine HCL 60 MG CAP PO SCH (21:07)
[2022-05-31] MEDS: ZOLPIDEM TARTRATE 10 MG TAB PO PRN (22:43)
--- NOTE | 2022-06-01 08:06 | Hospitalist Progress Note ---
Date of Service June 01, 2022 Assessment & Plan (1) Right radial fracture: Plan: 61-year-old male past medical history significant for type 1 diabetes, Crohn's disease, polymyositis-dermatomyositis, hypertension admitted following a fall with resultant right humerus/radius fractures and left foot fractures. Right radial/humeral fracture: - Presented following a fall from standing height; patient states that his legs gave out from underneath him and he crumpled and tried to catch himself with his right arm. - X-rays show nondisplaced supracondylar humeral fracture as well as avulsion fracture of the radial head with associated soft tissue swelling and joint effusion. - Orthopedics consulted and appreciate recommendations: Continue splint/simple sling with nonweightbearing to right upper extremity. - Continue pain control with rotating ice/heat, scheduled Tylenol, topical Voltaren gel, and Percocet as needed for breakthrough pain. - PT/OT ordered: SNF recommended on discharge for continued work on ADLs and mobility/strengthening. Awaiting bed at [facility]. (2) Supracondylar fracture of humerus: Plan: - See above. (3) Metatarsal stress fracture of left foot: Plan: - Mechanism of fall as described above. - X-rays show fractures of the first through third metatarsals with associated soft tissue swelling. - Evaluated by Podiatry and appreciate recommendations: non weight-bearing to left foot, no surgery at this time, with outpatient follow up in 4 weeks. - Pain management as above. - Patient complaining of burning in left lower extremity that continues to improve. Continue increased dose of gabapentin for neuropathic pain as it seems that this is helping. Pain control otherwise as described above. (4) Neuropathy: Plan: - Patient has a history of diabetic neuropathy and bilateral feet, however reports that the tingling/burning sensation has been worse since his fall on his left foot in particular. - Suspect that this increase in symptoms is secondary to skin stretch from swelling from multiple foot fractures. Blood sugars have been under good control. - Symptoms have improved with increasing gabapentin to 300 mg every 8 hours, will continue this dosing. (5) Constipated: Plan: - Continue MiraLAX and Dulcolax suppository as patient was successful today with having a bowel movement. (6) Burst fracture of lumbar vertebra: Plan: - Hospitalized 05/04 - 05/[address] Lester on 05/07. - Discharged to [facility] 05/09-05/14. - Continue medications for recent burst fracture: Gabapentin, Cymbalta, calcitonin spray. - Pain control for acute fractures as described above. (7) Urinary retention: Plan: - Patient has been retaining urine, as seen on bladder scans. - Suspected secondary to BPH; Batista placed while admitted and will need follow- up with Urology in the outpatient setting. (8) Polymyositis-dermatomyositis: Plan: - Follows with [facility]. - Continue home prednisone 17 mg daily. (9) Type 1 diabetes mellitus on insulin therapy: Plan: - A1c 6.1%. BSG is running in the 130s to 140s for the most part on current regimen - Glycemic management consultation to pharmacy; appreciate their recommendations. - Continue Lantus 30 units daily, with sliding scale coverage as follows: - NovoLog per scale ACHS or Q6hrs while NPO - Goal Range: Low 110 mg/dL - High 140 mg/dL - Correction Factor: 12 mg/dL/unit - Nutritional / Prandial insulin per carb ratio of 1 unit per 2 grams CHO consumed - DM1 diet. (10) Hypertension: Plan: - BP well controlled on lisinopril daily. (11) Hypercholesterolemia: Plan: - Continue Zetia 10 mg daily. (12) Crohn's disease: Plan: - Patient is on Entyvio injections q8 weeks, and is not due for this for 5 more weeks. - Lomotil prn for diarrhea. - Continue prednisone 17 mg daily. (13) Insomnia: Plan: - Continue Ambien, trazodone. Plan CODE STATUS: Full code FEN: DM 1 diet DVT prophylaxis: Lovenox 40 subcu daily Dispo: Med/Surg; ultimate plan for discharge to SNF rehab Admission and Anticipated Discharge Date Admission Date: May 25, 2022 Subjective No acute events overnight. Today patient finally had a bowel movement after several days of constipation. He reports that the burning on his left foot is significantly decreased today as compared to the days prior. Review of Systems Constitutional: no fever and no chills Respiratory: no cough and no dyspnea Cardiovascular: no chest pain and no palpitations Gastrointestinal: no abdominal pain, no nausea and no vomiting Physical Exam Constitutional: WD/WN, vitals as above Respiratory: normal respiratory effort, lungs clear to auscultation Cardiovascular: RRR no murmurs 2+ pitting edema to left lower extremity, 1+ pitting edema to right lower extremity Gastrointestinal (Abdomen): normal bowel sounds, soft, nontender, no hepatosplenomegaly Musculoskeletal: Sling in place to right arm Skin: no rashes, warm and dry Patient with ecchymosis and swelling over the dorsal and medial aspects of his left foot Psychiatric: A+Ox3, euthymic affect Results & Data Results & Data ([facility]) Vital Signs (Past 12 Hours) Vital Signs Temp Pulse Resp BP Pulse Ox O2 Del Method 06/01/22 07:30 36.9 C 80 17 154/82 H 98 Room Air 05/31/22 22:14 36.9 C 84 18 128/70 92 Room Air PG Care Time/CCT Total # of Minutes Spent Total Time Spent with Patient: Total time spent is greater than 50% in coordination of care (as documented) at patient's floor/unit and/or counseling patient: Coding Level of Care Code 07087 Subseq Hosp Care Lvl 3 Diagnoses Right radial fracture S52.91XA Supracondylar fracture of humerus S42.413A Metatarsal stress fracture of left foot M84.375A Neuropathy G62.9 Constipated K59.00 Burst fracture of lumbar vertebra S32.001A Urinary retention R33.9 Polymyositis-dermatomyositis M33.90 Type 1 diabetes mellitus on insulin therapy E10.9 Hypertension I10 Hypercholesterolemia E78.00 Crohn's disease K50.90 Insomnia G47.00
[2022-06-01] MEDS: oxyCODONE/ACETAMINOPHEN 10-325 TAB PO PRN ×2 (08:17→22:52)
[2022-06-01] MEDS: lisinopril 5 MG TAB PO SCH (08:17)
[2022-06-01] MEDS: ACETAMINOPHEN 500 MG TAB PO SCH ×2 (08:17→20:48)
[2022-06-01] MEDS: GABAPENTIN 300 MG CAP PO SCH ×3 (08:17→20:48)
[2022-06-01] MEDS: predniSONE 5 MG TAB PO SCH (08:18)
[2022-06-01] MEDS: ENOXAPARIN INJ 40 MG/0.4 ML SYR SQ SCH (08:18)
[2022-06-01] MEDS: EZETIMIBE 10 MG TABLET PO SCH (08:18)
[2022-06-01] MEDS: POLYETHYLENE (MIRALAX) 17 GM PACK PO SCH (08:18)
[2022-06-01] MEDS: MULTIVITAMIN TAB PO SCH (08:18)
[2022-06-01] MEDS: INSULIN ASPART PER UNIT SC SCH ×4 (09:48→20:53)
[2022-06-01] MEDS: LANTUS PER UNIT CHARGE SQ SCH (09:48)
[2022-06-01] MEDS: HYDROmorphone INJ 1 MG/ML SYRINGE IV PRN (10:13)
[2022-06-01] MEDS: DULoxetine HCL 60 MG CAP PO SCH (20:48)
[2022-06-01] MEDS: traZODone HCL 100 MG TAB PO SCH (20:48)
[2022-06-01] MEDS: ZOLPIDEM TARTRATE 10 MG TAB PO PRN (21:51)
--- NOTE | 2022-06-02 09:10 | Hospitalist Progress Note ---
Date of Service June 02, 2022 Assessment & Plan (1) Right radial fracture: Plan: 61-year-old male past medical history significant for type 1 diabetes, Crohn's disease, polymyositis-dermatomyositis, hypertension admitted following a fall with resultant right humerus/radius fractures and left foot fractures. Right radial/humeral fracture: - Presented following a fall from standing height; patient states that his legs gave out from underneath him and he crumpled and tried to catch himself with his right arm. - X-rays show nondisplaced supracondylar humeral fracture as well as avulsion fracture of the radial head with associated soft tissue swelling and joint effusion. - Orthopedics consulted and appreciate recommendations: Continue splint/simple sling with nonweightbearing to right upper extremity. - Continue pain control with rotating ice/heat, scheduled Tylenol, topical Voltaren gel, and Percocet as needed for breakthrough pain. - PT/OT ordered: SNF recommended on discharge for continued work on ADLs and mobility/strengthening. Awaiting bed at [facility]. (2) Supracondylar fracture of humerus: Plan: - See above. (3) Metatarsal stress fracture of left foot: Plan: - Mechanism of fall as described above. - X-rays show fractures of the first through third metatarsals with associated soft tissue swelling. - Evaluated by Podiatry and appreciate recommendations: non weight-bearing to left foot, no surgery at this time, with outpatient follow up in 4 weeks. - Pain management as above. - Patient complaining of burning in left lower extremity that continues to improve. Continue increased dose of gabapentin for neuropathic pain as it seems that this is helping. Pain control otherwise as described above. (4) Neuropathy: Plan: - Patient has a history of diabetic neuropathy and bilateral feet, however reports that the tingling/burning sensation has been worse since his fall on his left foot in particular. - Suspect that this increase in symptoms is secondary to skin stretch from swelling from multiple foot fractures. Blood sugars have been under good control. Reassuring that his symptoms are improving with improvement in his swelling and bruising. - Continue increased gabapentin dose, 300 mg every 8 hours. (5) Constipated: Plan: - Continue MiraLAX and Dulcolax suppository as patient was successful 06/01 with having a bowel movement. (6) Burst fracture of lumbar vertebra: Plan: - Hospitalized 05/04 - 05/[address] Lester on 05/07. - Discharged to [facility] 05/09-05/14. - Continue medications for recent burst fracture: Gabapentin, Cymbalta, calcitonin spray. - Pain control for acute fractures as described above. (7) Urinary retention: Plan: - Patient has been retaining urine, as seen on bladder scans this admission. - Suspected secondary to BPH; Batista placed while admitted and will need follow- up with Urology in the outpatient setting. (8) Polymyositis-dermatomyositis: Plan: - Follows with [facility]. - Continue home prednisone 17 mg daily. (9) Type 1 diabetes mellitus on insulin therapy: Plan: - A1c 6.1%. BSG is running in the 130s to 140s for the most part on current regimen - Glycemic management consultation to pharmacy; appreciate their recommendations. - Continue Lantus 30 units daily, with sliding scale coverage as follows: - NovoLog per scale ACHS or Q6hrs while NPO - Goal Range: Low 110 mg/dL - High 140 mg/dL - Correction Factor: 12 mg/dL/unit - Nutritional / Prandial insulin per carb ratio of 1 unit per 2 grams CHO consumed - DM1 diet. (10) Hypertension: Plan: - BP well controlled on lisinopril daily. (11) Hypercholesterolemia: Plan: - Continue Zetia 10 mg daily. (12) Crohn's disease: Plan: - Patient is on Entyvio injections q8 weeks, and is not due for this for 5 more weeks. - Lomotil prn for diarrhea. - Continue prednisone 17 mg daily. (13) Insomnia: Plan: - Continue Ambien, trazodone. Plan CODE STATUS: Full code FEN: DM 1 diet DVT prophylaxis: Lovenox 40 subcu daily Dispo: Med/Surg; ultimate plan for discharge to SNF rehab Admission and Anticipated Discharge Date Admission Date: May 25, 2022 Subjective No acute events overnight. Patient is excited that his left foot pain is significantly less today compared to days prior. Did have a BM yesterday that was quite hard and he will probably take Dulcolax again today. Review of Systems Constitutional: no fever and no chills Respiratory: no cough and no dyspnea Cardiovascular: no chest pain and no palpitations Gastrointestinal: no abdominal pain, no nausea and no vomiting Physical Exam Constitutional: WD/WN, vitals as above Respiratory: normal respiratory effort, lungs clear to auscultation Cardiovascular: RRR, no murmur, no edema RRR no murmurs 2+ pitting edema to left lower extremity, 1+ pitting edema to right lower extremity Gastrointestinal (Abdomen): normal bowel sounds, soft, nontender, no hepatosplenomegaly Musculoskeletal: Sling in place to right arm Skin: no rashes, warm and dry Patient with healing ecchymosis and resolving swelling over the dorsal and medial aspects of his left foot Psychiatric: A+Ox3, euthymic affect Results & Data Results & Data ([facility]) Vital Signs (Past 12 Hours) Vital Signs Temp Pulse Resp BP Pulse Ox O2 Del Method 06/02/22 07:57 36.6 C 77 18 143/80 H 98 Room Air 06/01/22 23:26 36.9 C 18 144/79 H 95 PG Care Time/CCT Total # of Minutes Spent Total Time Spent with Patient: Total time spent is greater than 50% in coordination of care (as documented) at patient's floor/unit and/or counseling patient: Coding Level of Care Code 25478 Subseq Hosp Care Lvl 3 Diagnoses Right radial fracture S52.91XA Supracondylar fracture of humerus S42.413A Metatarsal stress fracture of left foot M84.375A Neuropathy G62.9 Constipated K59.00 Burst fracture of lumbar vertebra S32.001A Urinary retention R33.9 Polymyositis-dermatomyositis M33.90 Type 1 diabetes mellitus on insulin therapy E10.9 Hypertension I10 Hypercholesterolemia E78.00 Crohn's disease K50.90 Insomnia G47.00
[2022-06-02] MEDS: lisinopril 5 MG TAB PO SCH (09:23)
[2022-06-02] MEDS: ENOXAPARIN INJ 40 MG/0.4 ML SYR SQ SCH (09:23)
[2022-06-02] MEDS: POLYETHYLENE (MIRALAX) 17 GM PACK PO SCH (09:23)
[2022-06-02] MEDS: predniSONE 5 MG TAB PO SCH (09:23)
[2022-06-02] MEDS: GABAPENTIN 300 MG CAP PO SCH ×3 (09:24→19:55)
[2022-06-02] MEDS: MULTIVITAMIN TAB PO SCH (09:24)
[2022-06-02] MEDS: EZETIMIBE 10 MG TABLET PO SCH (09:24)
[2022-06-02] MEDS: ACETAMINOPHEN 500 MG TAB PO SCH ×2 (09:26→19:55)
[2022-06-02] MEDS: LANTUS PER UNIT CHARGE SQ SCH (09:27)
[2022-06-02] MEDS: INSULIN ASPART PER UNIT SC SCH ×4 (09:28→19:56)
[2022-06-02] MEDS: traZODone HCL 100 MG TAB PO SCH (19:54)
[2022-06-02] MEDS: DULoxetine HCL 60 MG CAP PO SCH (19:55)
[2022-06-02] MEDS: ZOLPIDEM TARTRATE 10 MG TAB PO PRN (22:17)
[2022-06-02] MEDS: oxyCODONE/ACETAMINOPHEN 10-325 TAB PO PRN (22:17)
--- NOTE | 2022-06-03 07:41 | Hospitalist Progress Note ---
Date of Service June 03, 2022 Assessment & Plan (1) Right radial fracture: Plan: 61-year-old male past medical history significant for type 1 diabetes, Crohn's disease, polymyositis-dermatomyositis, hypertension admitted following a fall with resultant right humerus/radius fractures and left foot fractures. Right radial/humeral fracture: - Presented following a fall from standing height; patient states that his legs gave out from underneath him and he crumpled and tried to catch himself with his right arm. - X-rays show nondisplaced supracondylar humeral fracture as well as avulsion fracture of the radial head with associated soft tissue swelling and joint effusion. - Orthopedics consulted and appreciate recommendations: Continue splint/simple sling with nonweightbearing to right upper extremity. - Continue pain control with rotating ice/heat, scheduled Tylenol, topical Voltaren gel, and Percocet as needed for breakthrough pain. - PT/OT ordered: SNF recommended on discharge for continued work on ADLs and mobility/strengthening. Awaiting bed at [facility]. (2) Supracondylar fracture of humerus: Plan: - See above. (3) Metatarsal stress fracture of left foot: Plan: - Mechanism of fall as described above. - X-rays show fractures of the first through third metatarsals with associated soft tissue swelling. - Evaluated by Podiatry and appreciate recommendations: non weight-bearing to left foot, no surgery at this time, with outpatient follow up in 4 weeks. - Pain management as above. - Continue increased dose of gabapentin for neuropathic pain as it seems that this is helping. (4) Urinary retention: Plan: - Patient has been retaining urine, as seen on bladder scans this admission, as well as last admission. - Suspected secondary to BPH, Flomax started. - Can perhaps trial d/c Batista prior to discharge, vs. outpatient follow up with Urology. (5) Neuropathy: Plan: - Patient has a history of diabetic neuropathy in bilateral feet, however reports that the tingling/burning sensation has been worse since his fall on his left foot in particular. - Suspect that this increase in symptoms is secondary to skin stretch from swelling from multiple foot fractures. Blood sugars have been under good control. Reassuring that his symptoms are resolved with improvement in his swelling and bruising. - Continue increased gabapentin dose, 300 mg every 8 hours. (6) Constipated: Plan: - Continue MiraLAX and Dulcolax, as patient has been having daily BM with this. (7) Burst fracture of lumbar vertebra: Plan: - Hospitalized 05/04 - 05/[address] Lester on 05/07. - Discharged to [facility] 05/09-05/14. - Continue medications for recent burst fracture: Gabapentin, Cymbalta. - Pain control for acute fractures as described above. (8) Polymyositis-dermatomyositis: Plan: - Follows with [facility]. - Continue home prednisone 17 mg daily. (9) Type 1 diabetes mellitus on insulin therapy: Plan: - A1c 6.1%. BSG is running in the 130s to 140s for the most part on current regimen - Glycemic management consultation to pharmacy; appreciate their recommendations. - Continue Lantus 30 units daily, with sliding scale coverage as follows: - NovoLog per scale ACHS or Q6hrs while NPO - Goal Range: Low 110 mg/dL - High 140 mg/dL - Correction Factor: 12 mg/dL/unit - Nutritional / Prandial insulin per carb ratio of 1 unit per 2 grams CHO consumed - DM1 diet. (10) Hypertension: Plan: - BP well controlled on lisinopril daily. (11) Hypercholesterolemia: Plan: - Continue Zetia 10 mg daily. (12) Crohn's disease: Plan: - Patient is on Entyvio injections q8 weeks, and is not due for this for several weeks. - Lomotil prn for diarrhea. - Continue prednisone 17 mg daily. (13) Insomnia: Plan: - Continue Ambien, trazodone. Plan CODE STATUS: Full code FEN: DM 1 diet DVT prophylaxis: Lovenox 40 subcu daily Dispo: Med/Surg; ultimate plan for discharge to SNF rehab Admission and Anticipated Discharge Date Admission Date: May 25, 2022 Subjective Patient without acute events overnight. He does report some tenderness over the left lateral ankle, but reports resolution of the burning sensation that he was experiencing for the last several days. He did not endorse any fevers or chills, shortness of breath, cough, chest pain, nausea or vomiting, diarrhea, abdominal pain. Review of Systems Review of Systems: All systems reviewed & are unremarkable except as noted in Subjective Physical Exam Constitutional: WD/WN, vitals as above Respiratory: normal respiratory effort, lungs clear to auscultation Cardiovascular: RRR, no murmur, no edema RRR no murmurs 1+ pitting edema to bilateral lower extremities Gastrointestinal (Abdomen): normal bowel sounds, soft, nontender, no hepatosplenomegaly Musculoskeletal: Sling in place to right arm Skin: no rashes, warm and dry Patient with healing ecchymosis and resolving swelling over the dorsal and medial aspects of his left foot. Some ecchymosis noted over the left lateral ankle today as well Psychiatric: A+Ox3, euthymic affect Genitourinary: Batista in place draining clear yellow urine Results & Data Results & Data ([facility]) Vital Signs (Past 12 Hours) Vital Signs Temp Pulse Resp BP Pulse Ox O2 Del Method 06/02/22 22:11 36.9 C 86 18 115/72 93 Room Air PG Care Time/CCT Total # of Minutes Spent Total Time Spent with Patient: Total time spent is greater than 50% in coordination of care (as documented) at patient's floor/unit and/or counseling patient: Coding Level of Care Code 53537 Subseq Hosp Care Lvl 2 Diagnoses Right radial fracture S52.91XA Supracondylar fracture of humerus S42.413A Metatarsal stress fracture of left foot M84.375A Urinary retention R33.9 Neuropathy G62.9 Constipated K59.00 Burst fracture of lumbar vertebra S32.001A Polymyositis-dermatomyositis M33.90 Type 1 diabetes mellitus on insulin therapy E10.9 Hypertension I10 Hypercholesterolemia E78.00 Crohn's disease K50.90 Insomnia G47.00
[2022-06-03] MEDS ORDERED: LANTUS PER UNIT CHARGE SQ SCH (09:00)
[2022-06-03] MEDS: INSULIN ASPART PER UNIT SC SCH ×4 (09:19→23:01)
[2022-06-03] MEDS: EZETIMIBE 10 MG TABLET PO SCH (09:21)
[2022-06-03] MEDS: lisinopril 5 MG TAB PO SCH (09:21)
[2022-06-03] MEDS: MULTIVITAMIN TAB PO SCH (09:21)
[2022-06-03] MEDS: ENOXAPARIN INJ 40 MG/0.4 ML SYR SQ SCH (09:21)
[2022-06-03] MEDS: GABAPENTIN 300 MG CAP PO SCH ×3 (09:21→21:34)
[2022-06-03] MEDS: POLYETHYLENE (MIRALAX) 17 GM PACK PO SCH (09:21)
[2022-06-03] MEDS: predniSONE 5 MG TAB PO SCH (09:21)
[2022-06-03] MEDS: ACETAMINOPHEN 500 MG TAB PO SCH ×2 (09:22→21:34)
[2022-06-03] MEDS ORDERED: TAMSULOSIN HCL 0.4 MG CAP PO ONE (10:57)
--- NOTE | 2022-06-03 13:38 | Pharmacy Report ---
Pharmacy Glycemic Short Note 2 - Date of Service June 03, 2022 - Glycemic Short BSG Results (Last 24 hours): 06/02/22 06/02/22 06/03/22 17:22 19:37 08:21 POC Glucose 131 H 184 H 137 H 06/03/22 12:05 POC Glucose 142 H OUTPATIENT ANTIDIABETIC REGIMEN: * Basaglar 72 units SC AM * Novolog 38 units SC w/ breakfast, 34 units SC with lunch, 38 units SC with dinner + sliding scale (goal 110-140, CF 12, CR 4) * HbA1c = 6.1% (04/16/22) ASSESSMENT: 06/03/22 * Patient received total 130 units of insulin yesterday: 30 units basal + 100 units bolus. * Fasting BSG has been slightly higher than few days ago. Basal insulin dose increased slightly this AM. * Post prandial BSGs were fairly well controlled yesterday. Novolog parameters continued the same. 05/31/22 * Blood sugars well controlled over past 72 hours, CR tightened to 2 on 05/29, no changes for insulin needed at this time * Patient looking for placement, possible [facility] 05/28/22 * BSGs elevated throughout the day yesterday, >200 mg/dL * Fasting BSG surprisingly much lower today at 73 mg/dL, patient did receive increased basal dose yesterday, but still significantly below reported home regimen * Given hyperglycemia yesterday, will continue tightened Novolog parameters * Will decrease basal insulin back to 30 units today given lower fasting BSG today * If persistent hyperglycemia again today, will tighten AM Novolog parameters tomorrow Background: * 61 yo M admitted last evening secondary to a right radius fracture. Pharmacy has been consulted to assist with inpatient glycemic management. Does not appear that any surgical intervention will be taken. Patient is ordered a T1DM diet. Listed as a type 1 diabetic with diagnosis around the age of 40 per previous diabetes visit notes. Behaves more as a type 2. Dosing will be based off previous admission data where patient was well controlled. Chronically on prednisone 15 mg daily. * BSGs upon admission yesterday were: 147-142-126 mg/dL. Received 30 units of Lantus last night and 11 units of Novolog with dinner. * Fasting BSG well controlled at 141 mg/dL this AM. Will continue with Lantus 30 units daily. Plan to move up Lantus dose to noon today with hopes of starting it at 0900 tomorrow to match home dosing. * BSG trended down after dinner Novolog last night. No changes yet but will continue to monitor. PLAN FOR INPATIENT GLYCEMIC CONTROL: * Basal insulin * Lantus 34 units SC daily * Bolus insulin * NovoLog per scale ACHS or Q6hrs while NPO * Goal Range: Low 110 mg/dL - High 140 mg/dL * Correction Factor: 12 mg/dL/unit * Nutritional / Prandial insulin per carb ratio of 1 unit per 2 grams CHO consumed
[2022-06-03] MEDS: traZODone HCL 100 MG TAB PO SCH (21:34)
[2022-06-03] MEDS: DULoxetine HCL 60 MG CAP PO SCH (21:34)
[2022-06-03] MEDS: ZOLPIDEM TARTRATE 10 MG TAB PO PRN (22:34)
[2022-06-04] MEDS: ACETAMINOPHEN 500 MG TAB PO SCH ×2 (08:22→20:21)
[2022-06-04] MEDS: GABAPENTIN 300 MG CAP PO SCH ×3 (08:22→20:21)
[2022-06-04] MEDS: EZETIMIBE 10 MG TABLET PO SCH (08:23)
[2022-06-04] MEDS: TAMSULOSIN HCL 0.4 MG CAP PO SCH (08:23)
[2022-06-04] MEDS: lisinopril 5 MG TAB PO SCH (08:23)
[2022-06-04] MEDS: predniSONE 5 MG TAB PO SCH (08:24)
[2022-06-04] MEDS: POLYETHYLENE (MIRALAX) 17 GM PACK PO SCH (08:25)
[2022-06-04] MEDS: MULTIVITAMIN TAB PO SCH (08:25)
[2022-06-04] MEDS: ENOXAPARIN INJ 40 MG/0.4 ML SYR SQ SCH (08:38)
[2022-06-04] MEDS: INSULIN ASPART PER UNIT SC SCH ×4 (08:47→20:50)
[2022-06-04] MEDS: LANTUS PER UNIT CHARGE SQ SCH (08:48)
--- NOTE | 2022-06-04 16:39 | Hospitalist Progress Note ---
Date of Service June 04, 2022 Assessment & Plan (1) Right radial fracture: Plan: - With concomitant supracondylar humeral fracture. - Patient placed in a sling. - [facility] consulted for evaluation, appreciate their recommendations. - For now, pain control with rotating ice/heat, scheduled Tylenol, topical Voltaren gel, [place] as needed for breakthrough pain. - Continue medications for recent burst fracture: Gabapentin, Cymbalta, calcitonin spray. - Patient will likely require placement to a SNF upon discharge. - PT/OT to evaluate and treat while admitted. - No change today. Feeling well. Awaiting placement. (2) Supracondylar fracture of humerus: Plan: - As above. (3) Metatarsal stress fracture of left foot: Plan: - Podiatry to evaluate patient. - Pain management as above. (4) Burst fracture of lumbar vertebra: Plan: - Hospitalized 05/04 - 05/[address] Lester on 05/07. - Discharged with Tylenol 1 g twice daily, [place] as needed, gabapentin 300 mg twice daily, Cymbalta 60 mg. - Discharged to [facility] 05/09-05/14 - No longer needs TLSO brace when OOB. (5) Polymyositis-dermatomyositis: Plan: - Follows with [facility] rheumatology. - Continue home prednisone 17 mg daily - If any procedures are performed for the above fractures, may need stress dose steroids at that time. (6) Type 1 diabetes mellitus on insulin therapy: Plan: - A1c 6.1% - Glycemic management consultation to pharmacy, appreciate their recommendations. - Last admission sugars were well controlled with Lantus 30 units in a.m., 20-30 units at night depending on sugar with NovoLog goal range [id number], CF 12, CR 4 (7) Hypertension: Plan: BP today is 120/70. - Continue lisinopril 5 mg in the a.m. (8) Hypercholesterolemia: Plan: - Continue Zetia 10 mg daily. - Patient is statin intolerant. (9) Crohn's disease: Plan: - Entyvio injections q8 weeks--not due for this for 6 more weeks. - Lomotil prn for diarrhea. (10) Insomnia: Plan: - Continue Ambien, trazodone. Plan - Obs tor medsurg. - SCDs for VTE ppx. - Full Code. Admission and Anticipated Discharge Date Admission Date: May 25, 2022 Subjective Doing well today. No major issues. Pain is under control. Reports no fevers/chills, chest pain, shortness of breath, abdominal pain, nausea, or vomiting. Physical Exam Constitutional: WD/WN, vitals as above Eyes: EOM intact bilaterally; no conjunctival abnormality ENMT: external ear and nose normal, oropharynx normal Neck: trachea midline, no thyromegaly normal visual inspection Respiratory: normal respiratory effort, lungs clear to auscultation no respiratory distress Cardiovascular: RRR, no murmur, no edema Gastrointestinal (Abdomen): Inspection/Auscultation: abdomen normal to inspection; abdomen not distended Musculoskeletal: no cyanosis or clubbing, extremities motor strength 5/5 Skin: no rashes, warm and dry Neurologic: moves all extremities and awake Psychiatric: Orientation: alert, oriented to person and cooperative Results & Data Results & Data ([facility]) Vital Signs (Past 12 Hours) Vital Signs Temp Pulse Resp BP Pulse Ox O2 Del Method 06/04/22 15:40 37.5 C 79 16 121/70 95 Room Air 06/04/22 07:30 Room Air 06/04/22 08:21 75 148/81 H 06/04/22 08:03 36.7 C 79 16 151/84 H 97 Room Air PG Care Time/CCT Total # of Minutes Spent Total Time Spent with Patient: Total time spent is greater than 50% in coordination of care (as documented) at patient's floor/unit and/or counseling patient: Coding Level of Care Code 81017 Subseq Hosp Care Lvl 1 Diagnoses Right radial fracture S52.91XA Supracondylar fracture of humerus S42.413A Metatarsal stress fracture of left foot M84.375A Burst fracture of lumbar vertebra S32.001A Polymyositis-dermatomyositis M33.90 Type 1 diabetes mellitus on insulin therapy E10.9 Hypertension I10 Hypercholesterolemia E78.00 Crohn's disease K50.90 Insomnia G47.00
[2022-06-04] MEDS: DULoxetine HCL 60 MG CAP PO SCH (20:21)
[2022-06-04] MEDS: traZODone HCL 100 MG TAB PO SCH (20:21)
[2022-06-04] MEDS: ZOLPIDEM TARTRATE 10 MG TAB PO PRN (21:46)
[2022-06-04] MEDS: oxyCODONE/ACETAMINOPHEN 5mg/325mg TAB PO PRN (22:29)
[2022-06-05] MEDS: ACETAMINOPHEN 500 MG TAB PO SCH ×2 (08:25→20:43)
[2022-06-05] MEDS: TAMSULOSIN HCL 0.4 MG CAP PO SCH (08:26)
[2022-06-05] MEDS: EZETIMIBE 10 MG TABLET PO SCH (08:26)
[2022-06-05] MEDS: predniSONE 5 MG TAB PO SCH (08:26)
[2022-06-05] MEDS: GABAPENTIN 300 MG CAP PO SCH ×3 (08:26→20:44)
[2022-06-05] MEDS: lisinopril 5 MG TAB PO SCH (08:27)
[2022-06-05] MEDS: MULTIVITAMIN TAB PO SCH (08:27)
[2022-06-05] MEDS: POLYETHYLENE (MIRALAX) 17 GM PACK PO SCH (08:28)
[2022-06-05] MEDS: ENOXAPARIN INJ 40 MG/0.4 ML SYR SQ SCH (08:32)
[2022-06-05] MEDS: LANTUS PER UNIT CHARGE SQ SCH (08:43)
[2022-06-05] MEDS: INSULIN ASPART PER UNIT SC SCH ×4 (08:43→20:40)
--- NOTE | 2022-06-05 13:58 | Pharmacy Report ---
Pharmacy Glycemic Short Note 2 - Date of Service June 05, 2022 - Glycemic Short BSG Results (Last 24 hours): 06/04/22 06/04/22 06/05/22 16:53 20:19 07:46 POC Glucose 211 H 171 H 97 06/05/22 11:49 POC Glucose 147 H OUTPATIENT ANTIDIABETIC REGIMEN: * Basaglar 72 units SC AM * Novolog 38 units SC w/ breakfast, 34 units SC with lunch, 38 units SC with dinner + sliding scale (goal 110-140, CF 12, CR 4) * HbA1c = 6.1% (04/16/22) ASSESSMENT: 06/05/22 * Mr Rodrigues's BSGs yesterday were [phone] mg/dL. * Patient received 108 units of insulin (30 units of basal and 78 units of bolus). * Fasting today is 97 mg/dL. Continue current Lantus as fasting stable. * CR loosened yesterday for all checks apart from breakfast. Continue for now. 06/03/22 * Patient received total 130 units of insulin yesterday: 30 units basal + 100 units bolus. * Fasting BSG has been slightly higher than few days ago. Basal insulin dose increased slightly this AM. * Post prandial BSGs were fairly well controlled yesterday. Novolog parameters continued the same. 05/31/22 * Blood sugars well controlled over past 72 hours, CR tightened to 2 on 05/29, no changes for insulin needed at this time * Patient looking for placement, possible [facility] 05/28/22 * BSGs elevated throughout the day yesterday, >200 mg/dL * Fasting BSG surprisingly much lower today at 73 mg/dL, patient did receive increased basal dose yesterday, but still significantly below reported home regimen * Given hyperglycemia yesterday, will continue tightened Novolog parameters * Will decrease basal insulin back to 30 units today given lower fasting BSG today * If persistent hyperglycemia again today, will tighten AM Novolog parameters tomorrow Background: * 61 yo M admitted last evening secondary to a right radius fracture. Pharmacy has been consulted to assist with inpatient glycemic management. Does not appear that any surgical intervention will be taken. Patient is ordered a T1DM diet. Listed as a type 1 diabetic with diagnosis around the age of 40 per previous diabetes visit notes. Behaves more as a type 2. Dosing will be based off previous admission data where patient was well controlled. Chronically on prednisone 15 mg daily. * BSGs upon admission yesterday were: 147-142-126 mg/dL. Received 30 units of Lantus last night and 11 units of Novolog with dinner. * Fasting BSG well controlled at 141 mg/dL this AM. Will continue with Lantus 30 units daily. Plan to move up Lantus dose to noon today with hopes of starting it at 0900 tomorrow to match home dosing. * BSG trended down after dinner Novolog last night. No changes yet but will continue to monitor. PLAN FOR INPATIENT GLYCEMIC CONTROL: * Basal insulin * Lantus 30 units SC daily * Bolus insulin * NovoLog per scale ACHS or Q6hrs while NPO * Goal Range: Low 110 mg/dL - High 140 mg/dL * Correction Factor: 12 mg/dL/unit * Nutritional / Prandial insulin per carb ratio of 1 unit per 2.5 grams CHO consumed (1 unit per 2 grams CHO consumed at breakfast)
--- NOTE | 2022-06-05 16:46 | Hospitalist Progress Note ---
Date of Service June 05, 2022 Assessment & Plan (1) Right radial fracture: Plan: - With concomitant supracondylar humeral fracture. - Patient placed in a sling. - UOC consulted for evaluation, appreciate their recommendations. - For now, pain control with rotating ice/heat, scheduled Tylenol, topical Voltaren gel, [place] as needed for breakthrough pain. - Continue medications for recent burst fracture: Gabapentin, Cymbalta, calcitonin spray. - Patient will likely require placement to a SNF upon discharge. - PT/OT to evaluate and treat while admitted. - No change today. Feeling well. Awaiting placement. (2) Supracondylar fracture of humerus: Plan: - As above. (3) Metatarsal stress fracture of left foot: Plan: - Podiatry to evaluate patient. - Pain management as above. (4) Burst fracture of lumbar vertebra: Plan: - Hospitalized 05/04 - 05/[address] Lester on 05/07. - Discharged with Tylenol 1 g twice daily, [place] as needed, gabapentin 300 mg twice daily, Cymbalta 60 mg. - Discharged to [facility] 05/09-05/14 - No longer needs TLSO brace when OOB. (5) Polymyositis-dermatomyositis: Plan: - Follows with [facility] rheumatology. - Continue home prednisone 17 mg daily - If any procedures are performed for the above fractures, may need stress dose steroids at that time. (6) Type 1 diabetes mellitus on insulin therapy: Plan: - A1c 6.1% - Glycemic management consultation to pharmacy, appreciate their recommendations. - Last admission sugars were well controlled with Lantus 30 units in a.m., 20-30 units at night depending on sugar with NovoLog goal range [id number], CF 12, CR 4 = Sugars have been 100 - 211 in last 24 hours. (7) Hypertension: Plan: BP today is 140/70. - Continue lisinopril 5 mg in the a.m. (8) Hypercholesterolemia: Plan: - Continue Zetia 10 mg daily. - Patient is statin intolerant. (9) Crohn's disease: Plan: - Entyvio injections q8 weeks--not due for this for 6 more weeks. - Lomotil prn for diarrhea. (10) Insomnia: Plan: - Continue Ambien, trazodone. Plan - Obs tor medsurg. - SCDs for VTE ppx. - Full Code. Admission and Anticipated Discharge Date Admission Date: May 25, 2022 Subjective Doing well today. Less pain. No major issues. Reports no fevers/chills, chest pain, shortness of breath, abdominal pain, nausea, or vomiting. Physical Exam Constitutional: WD/WN, vitals as above Eyes: EOM intact bilaterally; no conjunctival abnormality ENMT: external ear and nose normal, oropharynx normal Neck: trachea midline, no thyromegaly normal visual inspection Respiratory: normal respiratory effort, lungs clear to auscultation no respiratory distress Cardiovascular: RRR, no murmur, no edema Gastrointestinal (Abdomen): Inspection/Auscultation: abdomen normal to inspection; abdomen not distended Musculoskeletal: no cyanosis or clubbing, extremities motor strength 5/5 Skin: no rashes, warm and dry Neurologic: moves all extremities and awake Psychiatric: Orientation: alert, oriented to person and cooperative Results & Data Results & Data ([facility]) Vital Signs (Past 12 Hours) Vital Signs Temp Pulse Resp BP Pulse Ox O2 Del Method 06/05/22 15:21 37.1 C 97 H 16 141/84 H 94 Room Air 06/05/22 08:24 73 149/80 H 06/05/22 07:58 36.8 C 80 16 159/85 H 99 Room Air PG Care Time/CCT Total # of Minutes Spent Total Time Spent with Patient: Total time spent is greater than 50% in coordination of care (as documented) at patient's floor/unit and/or counseling patient: Coding Level of Care Code 16080 Subseq Hosp Care Lvl 2 Diagnoses Right radial fracture S52.91XA Supracondylar fracture of humerus S42.413A Metatarsal stress fracture of left foot M84.375A Burst fracture of lumbar vertebra S32.001A Polymyositis-dermatomyositis M33.90 Type 1 diabetes mellitus on insulin therapy E10.9 Hypertension I10 Hypercholesterolemia E78.00 Crohn's disease K50.90 Insomnia G47.00
[2022-06-05] MEDS: traZODone HCL 100 MG TAB PO SCH (20:42)
[2022-06-05] MEDS: DULoxetine HCL 60 MG CAP PO SCH (20:43)
[2022-06-05] MEDS: ZOLPIDEM TARTRATE 10 MG TAB PO PRN (22:24)
[2022-06-06] MEDS: INSULIN ASPART PER UNIT SC SCH ×4 (09:12→21:55)
[2022-06-06] MEDS: LANTUS PER UNIT CHARGE SQ SCH (09:15)
[2022-06-06] MEDS: ACETAMINOPHEN 500 MG TAB PO SCH ×2 (09:27→20:07)
[2022-06-06] MEDS: ENOXAPARIN INJ 40 MG/0.4 ML SYR SQ SCH (09:28)
[2022-06-06] MEDS: GABAPENTIN 300 MG CAP PO SCH ×3 (09:32→20:08)
[2022-06-06] MEDS: EZETIMIBE 10 MG TABLET PO SCH (09:32)
[2022-06-06] MEDS: lisinopril 5 MG TAB PO SCH (09:32)
[2022-06-06] MEDS: predniSONE 5 MG TAB PO SCH (09:33)
[2022-06-06] MEDS: MULTIVITAMIN TAB PO SCH (09:33)
[2022-06-06] MEDS: POLYETHYLENE (MIRALAX) 17 GM PACK PO SCH (09:33)
[2022-06-06] MEDS: TAMSULOSIN HCL 0.4 MG CAP PO SCH (09:33)
--- NOTE | 2022-06-06 11:27 | Hospitalist Progress Note ---
Date of Service June 06, 2022 Assessment & Plan (1) Right radial fracture: Plan: - With concomitant supracondylar humeral fracture. - Patient placed in a sling. - [facility]OC consulted for evaluation, appreciate their recommendations. - For now, pain control with rotating ice/heat, scheduled Tylenol, topical Voltaren gel, [place] as needed for breakthrough pain. - Continue medications for recent burst fracture: Gabapentin, Cymbalta, calcitonin spray. - Patient will likely require placement to a SNF upon discharge. - PT/OT to evaluate and treat while admitted. - Some pain today. Will repeat x-rays and reconsult ortho if needed. (2) Supracondylar fracture of humerus: Plan: - As above. (3) Metatarsal stress fracture of left foot: Plan: - Podiatry to evaluate patient. - Pain management as above. - Repeat x-rays today. (4) Burst fracture of lumbar vertebra: Plan: - Hospitalized 05/04 - 05/[address] Lester on 05/07. - Discharged with Tylenol 1 g twice daily, [place] as needed, gabapentin 300 mg twice daily, Cymbalta 60 mg. - Discharged to [facility] 05/09-05/14 - No longer needs TLSO brace when OOB. (5) Polymyositis-dermatomyositis: Plan: - Follows with [facility] rheumatology. - Continue home prednisone 17 mg daily - If any procedures are performed for the above fractures, may need stress dose steroids at that time. (6) Type 1 diabetes mellitus on insulin therapy: Plan: - A1c 6.1% - Glycemic management consultation to pharmacy, appreciate their recommendations. - Last admission sugars were well controlled with Lantus 30 units in a.m., 20-30 units at night depending on sugar with NovoLog goal range [id number], CF 12, CR 4 = Sugars have been 100 - 211 in last 24 hours. (7) Hypertension: Plan: BP today is 150/70. - Continue lisinopril 5 mg in the a.m. (8) Hypercholesterolemia: Plan: - Continue Zetia 10 mg daily. - Patient is statin intolerant. (9) Crohn's disease: Plan: - Entyvio injections q8 weeks--not due for this for 6 more weeks. - Lomotil prn for diarrhea. (10) Insomnia: Plan: - Continue Ambien, trazodone. Plan - Obs tor medsurg. - SCDs for VTE ppx. - Full Code. Admission and Anticipated Discharge Date Admission Date: May 25, 2022 Subjective Right arm is more painful today. Feels sharp pain going up arm. Physical Exam Constitutional: WD/WN, vitals as above Eyes: EOM intact bilaterally; no conjunctival abnormality ENMT: external ear and nose normal, oropharynx normal Neck: trachea midline, no thyromegaly normal visual inspection Respiratory: normal respiratory effort, lungs clear to auscultation no respiratory distress Cardiovascular: RRR, no murmur, no edema Gastrointestinal (Abdomen): Inspection/Auscultation: abdomen normal to inspection; abdomen not distended Musculoskeletal: Shoulder: + shoulder abnormal to inspection (Right arm in sling) Skin: no rashes, warm and dry Neurologic: moves all extremities and awake Psychiatric: Orientation: alert, oriented to person and cooperative Results & Data Results & Data ([facility]) Vital Signs (Past 12 Hours) Vital Signs Temp Pulse Resp BP Pulse Ox O2 Del Method 06/06/22 07:20 36.7 C 79 18 151/84 H 96 Room Air PG Care Time/CCT Total # of Minutes Spent Total Time Spent with Patient: Total time spent is greater than 50% in coordination of care (as documented) at patient's floor/unit and/or counseling patient: Coding Level of Care Code 27142 Subseq Hosp Care Lvl 2 Diagnoses Right radial fracture S52.91XA Supracondylar fracture of humerus S42.413A Metatarsal stress fracture of left foot M84.375A Burst fracture of lumbar vertebra S32.001A Polymyositis-dermatomyositis M33.90 Type 1 diabetes mellitus on insulin therapy E10.9 Hypertension I10 Hypercholesterolemia E78.00 Crohn's disease K50.90 Insomnia G47.00
--- NOTE | 2022-06-06 14:29 | XRay Report ---
XR foot LT min 3V routine CLINICAL HISTORY: Left metatarsal fractures. Follow-up. COMPARISON STUDY: Left foot 05/24/2022. FINDINGS: There is dorsal soft tissue swelling within the left forefoot. Fractures involving the dist al first through third metatarsals again noted. These demonstrate slight progression of the lateral a ngulation/displacement. No significant healing at this time. The Lisfranc joint is intact. No additio nal fractures identified within the left foot. No dislocation. IMPRESSION: Redemonstration of the fractures involving the distal first through third metatarsals. T hese demonstrate mild progressive lateral angulation/displacement. No significant healing identified ACT 112: Negative or not required by law. Electronically signed by: Luis Alfredo Lopez M.D. 06/06/2022 2:27 PM
--- NOTE | 2022-06-06 15:31 | XRay Report ---
XR elbow RT 2V CLINICAL HISTORY: Follow-up fracture. COMPARISON: Right elbow radiographs May 24, 2022. FINDINGS: Overlying cast is noted. The transverse right humeral fracture is again noted. Fracture al ignment has not significantly changed although the fracture slightly more evident than on prior exam. The fracture is minimally distracted. No additional fractures are identified. Anterior fat pad is pr ominent. This may indicate a small joint effusion, decreased in size since prior exam. IMPRESSION: No significant change in alignment of a transverse distal right humeral fracture which is essentially nondisplaced. ACT 112: Negative or not required by law. Electronically signed by: Dilip Barahona M.D. 06/06/2022 3:29 PM
[2022-06-06] MEDS: DULoxetine HCL 60 MG CAP PO SCH (20:08)
[2022-06-06] MEDS: traZODone HCL 100 MG TAB PO SCH (20:08)
--- NOTE | 2022-06-06 20:20 | Orthopedic Progress Note ---
Date of Service June 06, 2022 Assessment & Plan (1) Fracture of metatarsal of left foot, closed: Plan: Patient seen, evaluated, and treated. Reviewed today's X-rays and X-ray findings with Patient. Patient does not his pain is under control. We discussed left foot swelling. He does not think he would tolerate lower extremity compression. Ways in which left foot could be elevated were discussed and initiated with use of pillow. Patient currently non weight bearing to left foot. Thank you for allowing me to participate in the care of this Patient. (2) Metatarsal stress fracture of left foot: Admission and Anticipated Discharge Date Admission Date: May 25, 2022 Subjective Patient seen at bedside this evening to review recent x-rays and discuss continued edema as well as pain control. Patient resting comfortably with no complaints. Review of Systems Review of Systems: No change in ROS observed Physical Exam Eyes: normal visual kee by confrontation ENMT: external ear and nose normal, oropharynx normal Respiratory: normal respiratory effort Cardiovascular: Edema left foot Psychiatric: A+Ox3, euthymic affect Results & Data ([facility]) Vital Signs (Past 12 Hours) Vital Signs Temp Pulse Resp BP Pulse Ox Pulse Ox O2 Del Method 06/06/22 16:00 93 06/06/22 14:50 37.2 C 105 H 18 128/75 92 Room Air O2 Del Method 06/06/22 16:00 Room Air 06/06/22 14:50 Diagnostic Findings XR foot LT min 3V routine CLINICAL HISTORY: Left metatarsal fractures. Follow-up. COMPARISON STUDY: Left foot 05/24/2022. FINDINGS: There is dorsal soft tissue swelling within the left forefoot. Fractures involving the distal first through third metatarsals again noted. These demonstrate slight progression of the lateral angulation/displacement. No significant healing at this time. The Lisfranc joint is intact. No additional fractures identified within the left foot. No dislocation. IMPRESSION: Redemonstration of the fractures involving the distal first through third metatarsals. These demonstrate mild progressive lateral angulation/displacement. No significant healing identified ACT 112: Negative or not required by law. Electronically signed by: Luis Alfredo Lopez M.D. 06/06/2022 2:27 PM (1) Fracture of metatarsal of left foot, closed Encounter type: initial encounter Fracture alignment: displaced Metatarsal bone: first Qualified Code(s): S92.312A - Displaced fracture of first metatarsal bone, left foot, initial encounter for closed fracture
[2022-06-06] MEDS: ZOLPIDEM TARTRATE 10 MG TAB PO PRN (22:15)
[2022-06-07 08:52] LABS: Hematocrit (blood only) 47.9 % (40.1-51.0); Hemoglobin 16.1 g/dl (14.0-18.0); Mean Corpuscular Hemoglobin 29.4 pg (25.0-34.0); Mean Corpuscular Hgb Conc 33.6 g/dL (32.0-36.0); Mean Corpuscular Volume 87.6 fL (80.0-100.0); Mean Platelet Volume 10.2 fL (9.4-12.4); Platelet Count 319 K/uL (130-400); RDW Coefficient of Variation 14.1 % (11.5-14.5); RDW Standard Deviation 45.2 fL (36.4-46.3); Red Blood Count 5.47 M/uL (4.63-6.08); White Blood Count 10.86 K/ul (4.8-10.8)
[2022-06-07] MEDS: ACETAMINOPHEN 500 MG TAB PO SCH ×2 (08:54→20:09)
[2022-06-07] MEDS: GABAPENTIN 300 MG CAP PO SCH ×3 (08:54→20:10)
[2022-06-07] MEDS: EZETIMIBE 10 MG TABLET PO SCH (08:54)
[2022-06-07] MEDS: ENOXAPARIN INJ 40 MG/0.4 ML SYR SQ SCH (08:55)
[2022-06-07] MEDS: lisinopril 5 MG TAB PO SCH (08:55)
[2022-06-07] MEDS: predniSONE 5 MG TAB PO SCH (08:55)
[2022-06-07] MEDS: POLYETHYLENE (MIRALAX) 17 GM PACK PO SCH (08:55)
[2022-06-07] MEDS: MULTIVITAMIN TAB PO SCH (08:55)
[2022-06-07] MEDS: TAMSULOSIN HCL 0.4 MG CAP PO SCH (08:55)
[2022-06-07] MEDS: LANTUS PER UNIT CHARGE SQ SCH (09:02)
[2022-06-07] MEDS: INSULIN ASPART PER UNIT SC SCH ×4 (09:02→21:07)
[2022-06-07 09:18] LABS: BUN Creatinine Ratio 42.5 (10-20); Calcium 9.3 mg/dl (8.5-10.1); Creatinine Clr Calc Pharmacy 237.5 ml/min; Est GFR (African American) 148.6 ml/min; Est GFR (Non-African American) 128.2 ml/min; Potassium 3.8 mmol/L (3.5-5.1)
--- NOTE | 2022-06-07 17:21 | Hospitalist Progress Note ---
Date of Service June 07, 2022 Assessment & Plan (1) Right radial fracture: Plan: - With concomitant supracondylar humeral fracture. - Patient placed in a sling. - UOC consulted for evaluation, appreciate their recommendations. - For now, pain control with rotating ice/heat, scheduled Tylenol, topical Voltaren gel, [place] as needed for breakthrough pain. - Continue medications for recent burst fracture: Gabapentin, Cymbalta, calcitonin spray. - Patient will likely require placement to a SNF upon discharge. - PT/OT to evaluate and treat while admitted. - Some pain today. Repeat x-rays from yesterday show no major changes. Seen by podiatry on 06/06. Reviewed by orthopedics on 06/07. No changes in plan. (2) Supracondylar fracture of humerus: Plan: - As above. (3) Metatarsal stress fracture of left foot: Plan: - Podiatry to evaluate patient. - Pain management as above. - Repeat x-rays stable. Followed up by podiatry 06/06 without change in plan. (4) Burst fracture of lumbar vertebra: Plan: - Hospitalized 05/04 - 05/[address] Lester on 05/07. - Discharged with Tylenol 1 g twice daily, [place] as needed, gabapentin 300 mg twice daily, Cymbalta 60 mg. - Discharged to [facility] 05/09-05/14 - No longer needs TLSO brace when OOB. (5) Polymyositis-dermatomyositis: Plan: - Follows with [facility] rheumatology. - Continue home prednisone 17 mg daily - If any procedures are performed for the above fractures, may need stress dose steroids at that time. (6) Type 1 diabetes mellitus on insulin therapy: Plan: - A1c 6.1% - Glycemic management consultation to pharmacy, appreciate their recommendations. - Last admission sugars were well controlled with Lantus 30 units in a.m., 20-30 units at night depending on sugar with NovoLog goal range [id number], CF 12, CR 4 => Sugars have been 100 - 190 in last 24 hours. (7) Hypertension: Plan: BP today is 140/80. - Continue lisinopril 5 mg in the a.m. (8) Hypercholesterolemia: Plan: - Continue Zetia 10 mg daily. - Patient is statin intolerant. (9) Crohn's disease: Plan: - Entyvio injections q8 weeks--not due for this for 6 more weeks. - Lomotil prn for diarrhea. (10) Insomnia: Plan: - Continue Ambien, trazodone. Plan - Obs tor medsurg. - SCDs for VTE ppx. - Full Code. Admission and Anticipated Discharge Date Admission Date: May 25, 2022 Subjective Doing well today. Arm is stable. Left foot is slightly more swollen. Reports no fevers/chills, chest pain, shortness of breath, abdominal pain, nausea, or vomiting. Physical Exam Constitutional: WD/WN, vitals as above Eyes: EOM intact bilaterally; no conjunctival abnormality ENMT: external ear and nose normal, oropharynx normal Neck: trachea midline, no thyromegaly normal visual inspection Respiratory: normal respiratory effort, lungs clear to auscultation no respiratory distress Cardiovascular: RRR, no murmur, no edema Gastrointestinal (Abdomen): Inspection/Auscultation: abdomen normal to inspection; abdomen not distended Musculoskeletal: no cyanosis or clubbing, extremities motor strength 5/5 Shoulder: + shoulder abnormal to inspection (Right arm in sling) Skin: no rashes, warm and dry Neurologic: moves all extremities and awake Psychiatric: Orientation: alert, oriented to person and cooperative Results & Data Results & Data ([facility]) Vital Signs (Past 12 Hours) Vital Signs Temp Pulse Resp BP Pulse Ox O2 Del Method 06/07/22 15:58 37.3 C 100 H 16 139/82 93 Room Air 06/07/22 07:35 CPAP 06/07/22 08:03 36.7 C 89 16 139/81 95 Room Air PG Care Time/CCT Total # of Minutes Spent Total Time Spent with Patient: Total time spent is greater than 50% in coordination of care (as documented) at patient's floor/unit and/or counseling patient: Coding Level of Care Code 14125 Subseq Hosp Care Lvl 2 Diagnoses Right radial fracture S52.91XA Supracondylar fracture of humerus S42.413A Metatarsal stress fracture of left foot M84.375A Burst fracture of lumbar vertebra S32.001A Polymyositis-dermatomyositis M33.90 Type 1 diabetes mellitus on insulin therapy E10.9 Hypertension I10 Hypercholesterolemia E78.00 Crohn's disease K50.90 Insomnia G47.00
[2022-06-07] MEDS: DULoxetine HCL 60 MG CAP PO SCH (20:10)
[2022-06-07] MEDS: traZODone HCL 100 MG TAB PO SCH (20:11)
[2022-06-07] MEDS: ZOLPIDEM TARTRATE 10 MG TAB PO PRN (22:36)
--- NOTE | 2022-06-08 07:36 | Communication Note ---
Date of Service: June 08, 2022 ATSP due to some increased pain in the RUE off and on. New xrays of elbow taken. Xrays reviewed by Dr. Shelby and myself. No significant changes noted. Pt sitting comfortably in bed. States he has pains radiating from the elbow to the shoulder at times. Discussed that this is likely due to his fx and may be intermittent. Discussed continuation of splint for now. ROM of the shoulder as able. Nonweightbearing on the RUE. Elevation as able. Dr Wooten, who saw him initially in consult, will see him this weekend in follow up.
[2022-06-08] MEDS: ACETAMINOPHEN 500 MG TAB PO SCH ×2 (08:06→20:56)
[2022-06-08] MEDS: POLYETHYLENE (MIRALAX) 17 GM PACK PO SCH (08:07)
[2022-06-08] MEDS: MULTIVITAMIN TAB PO SCH (08:07)
[2022-06-08] MEDS: lisinopril 5 MG TAB PO SCH (08:07)
[2022-06-08] MEDS: GABAPENTIN 300 MG CAP PO SCH ×3 (08:07→20:57)
[2022-06-08] MEDS: TAMSULOSIN HCL 0.4 MG CAP PO SCH (08:07)
[2022-06-08] MEDS: EZETIMIBE 10 MG TABLET PO SCH (08:07)
[2022-06-08] MEDS: INSULIN ASPART PER UNIT SC SCH ×4 (08:50→20:57)
[2022-06-08] MEDS: LANTUS PER UNIT CHARGE SQ SCH (08:50)
[2022-06-08] MEDS: ENOXAPARIN INJ 40 MG/0.4 ML SYR SQ SCH (08:51)
[2022-06-08] MEDS: predniSONE 5 MG TAB PO SCH (08:51)
--- NOTE | 2022-06-08 12:32 | Pharmacy Report ---
Pharmacy Glycemic Sign Off Nt - Date of Service June 08, 2022 - Assessment & Plan ASSESSMENT: * Pharmacy was consulted by Leatha Deleon on 05/24/22 for glycemic control and to write orders per [facility] inpatient glycemic control protocol. * Major changes made by pharmacy to antidiabetic regimen include: * initiation of Lantus 30 units daily * initiation of Novolog * Patient has been receiving/requiring 120-140 units of insulin per day for adequate glycemic control * BSGs ranging 130s- 180s mg/dl * Regimen has only required minor adjustments over the past 48hrs to achieve this level of control * Do not anticipate further changes in patient status that would quickly deterio rate glycemic control (i.e. patient to be NPO for upcoming procedure, steroids tapering, starting tube feedings, etc). * Please see recommendations for outpatient antidiabetic regimen below. PLAN FOR INPATIENT GLYCEMIC CONTROL: No changes needed to current regimen. * Continue basal insulin with Lantus 30 units SQ daily * Continue NovoLog per scale ACHS/Q6hrs while NPO * Goal range = 110 -140 mg/dl * CF = 12 mg/dl/unit * CR = 1 unit for ever 2 g CHO consumed (2.5 g CHO consumed after breakfast) * Pharmacy is signing off of glycemic consult and will no longer be making adjustments to inpatient regimen. Please feel free to re-consult if needed. Thank you.
--- NOTE | 2022-06-08 15:17 | Hospitalist Progress Note ---
Date of Service June 08, 2022 Assessment & Plan (1) Right radial fracture: Plan: - With concomitant supracondylar humeral fracture. - Patient placed in a sling. - UOC consulted for evaluation, appreciate their recommendations. - For now, pain control with rotating ice/heat, scheduled Tylenol, topical Voltaren gel, [place] as needed for breakthrough pain. - Continue medications for recent burst fracture: Gabapentin, Cymbalta, calcitonin spray. - Patient will likely require placement to a SNF upon discharge. - PT/OT to evaluate and treat while admitted. - Some pain today. Repeat x-rays from yesterday show no major changes. Seen by podiatry on 06/06. Reviewed by orthopedics on 06/07. No changes in plan. - Stable today. (2) Supracondylar fracture of humerus: Plan: - As above. (3) Metatarsal stress fracture of left foot: Plan: - Podiatry to evaluate patient. - Pain management as above. - Repeat x-rays stable. Followed up by podiatry 06/06 without change in plan. - Some improvement on 06/08 in pain & swelling of foot. (4) Burst fracture of lumbar vertebra: Plan: - Hospitalized 05/04 - 05/[address] Lester on 05/07. - Discharged with Tylenol 1 g twice daily, [place] as needed, gabapentin 300 mg twice daily, Cymbalta 60 mg. - Discharged to [facility] 05/09-05/14 - No longer needs TLSO brace when OOB. (5) Polymyositis-dermatomyositis: Plan: - Follows with [facility] rheumatology. - Continue home prednisone 17 mg daily - If any procedures are performed for the above fractures, may need stress dose steroids at that time. (6) Type 1 diabetes mellitus on insulin therapy: Plan: - A1c 6.1% - Glycemic management consultation to pharmacy, appreciate their recommendations. - Last admission sugars were well controlled with Lantus 30 units in a.m., 20-30 units at night depending on sugar with NovoLog goal range [id number], CF 12, CR 4 => Sugars have been 120 - 190 in last 24 hours. (7) Hypertension: Plan: BP today is 125/70. - Continue lisinopril 5 mg in the a.m. (8) Hypercholesterolemia: Plan: - Continue Zetia 10 mg daily. - Patient is statin intolerant. (9) Crohn's disease: Plan: - Entyvio injections q8 weeks--not due for this for 6 more weeks. - Lomotil prn for diarrhea. (10) Insomnia: Plan: - Continue Ambien, trazodone. Plan - Obs tor medsurg. - SCDs for VTE ppx. - Full Code. Admission and Anticipated Discharge Date Admission Date: May 25, 2022 Subjective Pleasant and doing well. Pain and swelling in foot is lower. Right arm is feeling stable. Reports no fevers/chills, chest pain, shortness of breath, abdominal pain, nausea, or vomiting. Physical Exam Constitutional: WD/WN, vitals as above Eyes: EOM intact bilaterally; no conjunctival abnormality ENMT: external ear and nose normal, oropharynx normal Neck: trachea midline, no thyromegaly normal visual inspection Respiratory: normal respiratory effort, lungs clear to auscultation no respiratory distress Cardiovascular: RRR, no murmur, no edema Gastrointestinal (Abdomen): Inspection/Auscultation: abdomen normal to inspection; abdomen not distended Musculoskeletal: no cyanosis or clubbing, extremities motor strength 5/5 Shoulder: + shoulder abnormal to inspection (Right arm in sling) Ankle: ankle normal to inspection (Left ankle with swelling and bruising) Skin: no rashes, warm and dry Neurologic: moves all extremities and awake Psychiatric: Orientation: alert, oriented to person and cooperative Results & Data Results & Data ([facility]) Vital Signs (Past 12 Hours) Vital Signs Temp Pulse Pulse Resp BP Pulse Ox O2 Del Method 06/08/22 14:39 36.5 C 94 H 18 124/71 93 Room Air 06/08/22 07:36 36.9 C 76 18 136/78 97 Room Air PG Care Time/CCT Total # of Minutes Spent Total Time Spent with Patient: Total time spent is greater than 50% in coordination of care (as documented) at patient's floor/unit and/or counseling patient: Coding Level of Care Code 77162 Subseq Hosp Care Lvl 2 Diagnoses Right radial fracture S52.91XA Supracondylar fracture of humerus S42.413A Metatarsal stress fracture of left foot M84.375A Burst fracture of lumbar vertebra S32.001A Polymyositis-dermatomyositis M33.90 Type 1 diabetes mellitus on insulin therapy E10.9 Hypertension I10 Hypercholesterolemia E78.00 Crohn's disease K50.90 Insomnia G47.00
[2022-06-08] MEDS: DULoxetine HCL 60 MG CAP PO SCH (20:57)
[2022-06-08] MEDS: traZODone HCL 100 MG TAB PO SCH (20:58)
[2022-06-08] MEDS: ZOLPIDEM TARTRATE 10 MG TAB PO PRN (22:17)
[2022-06-09] MEDS: lisinopril 5 MG TAB PO SCH (08:45)
[2022-06-09] MEDS: MULTIVITAMIN TAB PO SCH (08:45)
[2022-06-09] MEDS: EZETIMIBE 10 MG TABLET PO SCH (08:45)
[2022-06-09] MEDS: TAMSULOSIN HCL 0.4 MG CAP PO SCH (08:45)
[2022-06-09] MEDS: predniSONE 5 MG TAB PO SCH (08:45)
[2022-06-09] MEDS: ACETAMINOPHEN 500 MG TAB PO SCH ×2 (08:46→21:17)
[2022-06-09] MEDS: GABAPENTIN 300 MG CAP PO SCH ×3 (08:46→21:18)
[2022-06-09] MEDS: POLYETHYLENE (MIRALAX) 17 GM PACK PO SCH (08:46)
[2022-06-09] MEDS: ENOXAPARIN INJ 40 MG/0.4 ML SYR SQ SCH (08:52)
[2022-06-09] MEDS: INSULIN ASPART PER UNIT SC SCH ×4 (08:52→21:45)
[2022-06-09] MEDS: LANTUS PER UNIT CHARGE SQ SCH (08:53)
--- NOTE | 2022-06-09 15:03 | Hospitalist Progress Note ---
Date of Service June 09, 2022 Assessment & Plan (1) Right radial fracture: Plan: - With concomitant supracondylar humeral fracture. - Patient placed in a sling. - UOC consulted for evaluation, appreciate their recommendations. - For now, pain control with rotating ice/heat, scheduled Tylenol, topical Voltaren gel, [place] as needed for breakthrough pain. - Continue medications for recent burst fracture: Gabapentin, Cymbalta, calcitonin spray. - Patient will likely require placement to a SNF upon discharge. - PT/OT to evaluate and treat while admitted. - Repeat x-rays from 06/06 showed no major changes. Reviewed films and symptoms with orthopedic PA on 06/07. No changes in plan. - Stable today. (2) Supracondylar fracture of humerus: Plan: - As above. (3) Metatarsal stress fracture of left foot: Plan: - Pain management as above. - Repeat x-rays stable. Followed up by podiatry 06/06 without change in plan. - Some improvement on 06/08 in pain & swelling of foot. Stable today. (4) Burst fracture of lumbar vertebra: Plan: - Hospitalized 05/04 - 05/[address] Lester on 05/07. - Discharged with Tylenol 1 g twice daily, [place] as needed, gabapentin 300 mg twice daily, Cymbalta 60 mg. - Discharged to [facility] 05/09-05/14 - No longer needs TLSO brace when OOB. (5) Polymyositis-dermatomyositis: Plan: - Follows with [facility] rheumatology. - Continue home prednisone 17 mg daily - If any procedures are performed for the above fractures, may need stress dose steroids at that time. (6) Type 1 diabetes mellitus on insulin therapy: Plan: - A1c 6.1% - Glycemic management consultation to pharmacy, appreciate their recommendations. - Last admission sugars were well controlled with Lantus 30 units in a.m., 20-30 units at night depending on sugar with NovoLog goal range [id number], CF 12, CR 4 => Sugars have been 100 - 200 in last 24 hours. Tightened sliding scale on 06/09. (7) Hypertension: Plan: BP today is 130/70. - Continue lisinopril 5 mg in the a.m. (8) Hypercholesterolemia: Plan: - Continue Zetia 10 mg daily. - Patient is statin intolerant. (9) Crohn's disease: Plan: - Entyvio injections q8 weeks--not due for this for 6 more weeks. - Lomotil prn for diarrhea. (10) Insomnia: Plan: - Continue Ambien, trazodone. Plan - Obs tor medsurg. - SCDs for VTE ppx. - Full Code. Admission and Anticipated Discharge Date Admission Date: May 25, 2022 Subjective Pleasant and doing well. No change in right arm or left leg today compared to yesterday. Reports no fevers/chills, chest pain, shortness of breath, abdominal pain, nausea, or vomiting. Physical Exam Constitutional: WD/WN, vitals as above Eyes: EOM intact bilaterally; no conjunctival abnormality ENMT: external ear and nose normal, oropharynx normal Neck: trachea midline, no thyromegaly normal visual inspection Respiratory: normal respiratory effort, lungs clear to auscultation no respiratory distress Cardiovascular: RRR, no murmur, no edema Gastrointestinal (Abdomen): Inspection/Auscultation: abdomen normal to inspection; abdomen not distended Musculoskeletal: no cyanosis or clubbing, extremities motor strength 5/5 Shoulder: + shoulder abnormal to inspection (Right arm in sling) Ankle: ankle normal to inspection (Left ankle with swelling and bruising) Skin: no rashes, warm and dry Neurologic: moves all extremities and awake Psychiatric: Orientation: alert, oriented to person and cooperative Results & Data Results & Data ([facility]) Vital Signs (Past 12 Hours) Vital Signs Temp Pulse Resp BP Pulse Ox O2 Del Method 06/09/22 14:03 36.9 C 102 H 17 128/77 94 Room Air 06/09/22 07:35 36.7 C 80 16 132/76 96 Room Air PG Care Time/CCT Total # of Minutes Spent Total Time Spent with Patient: Total time spent is greater than 50% in coordination of care (as documented) at patient's floor/unit and/or counseling patient: Coding Level of Care Code 03764 Subseq Hosp Care Lvl 2 Diagnoses Right radial fracture S52.91XA Supracondylar fracture of humerus S42.413A Metatarsal stress fracture of left foot M84.375A Burst fracture of lumbar vertebra S32.001A Polymyositis-dermatomyositis M33.90 Type 1 diabetes mellitus on insulin therapy E10.9 Hypertension I10 Hypercholesterolemia E78.00 Crohn's disease K50.90 Insomnia G47.00
[2022-06-09] MEDS: DULoxetine HCL 60 MG CAP PO SCH (21:17)
[2022-06-09] MEDS: traZODone HCL 100 MG TAB PO SCH (21:18)
[2022-06-09] MEDS: ZOLPIDEM TARTRATE 10 MG TAB PO PRN (22:48)
[2022-06-10] MEDS: EZETIMIBE 10 MG TABLET PO SCH (08:54)
[2022-06-10] MEDS: TAMSULOSIN HCL 0.4 MG CAP PO SCH (08:54)
[2022-06-10] MEDS: MULTIVITAMIN TAB PO SCH (08:54)
[2022-06-10] MEDS: lisinopril 5 MG TAB PO SCH (08:54)
[2022-06-10] MEDS: GABAPENTIN 300 MG CAP PO SCH ×3 (08:54→20:39)
[2022-06-10] MEDS: ACETAMINOPHEN 500 MG TAB PO SCH ×2 (08:54→20:37)
[2022-06-10] MEDS: predniSONE 5 MG TAB PO SCH (08:55)
[2022-06-10] MEDS: ENOXAPARIN INJ 40 MG/0.4 ML SYR SQ SCH ×2 (08:55→20:38)
[2022-06-10] MEDS: POLYETHYLENE (MIRALAX) 17 GM PACK PO SCH (08:55)
[2022-06-10] MEDS: INSULIN ASPART PER UNIT SC SCH ×4 (09:07→20:39)
[2022-06-10] MEDS: LANTUS PER UNIT CHARGE SQ SCH (09:08)
--- NOTE | 2022-06-10 18:32 | Hospitalist Progress Note ---
Date of Service June 10, 2022 Assessment & Plan (1) Right radial fracture: Plan: - With concomitant supracondylar humeral fracture. - Patient placed in a sling. - UOC consulted for evaluation, appreciate their recommendations. - For now, pain control with rotating ice/heat, scheduled Tylenol, topical Voltaren gel, [place] as needed for breakthrough pain. - Continue medications for recent burst fracture: Gabapentin, Cymbalta, calcitonin spray. - Patient will likely require placement to a SNF upon discharge. - PT/OT to evaluate and treat while admitted. - Repeat x-rays from 06/06 showed no major changes. Reviewed films and symptoms with orthopedic PA on 06/07. No changes in plan. - Stable today. No increased pain today. (2) Supracondylar fracture of humerus: Plan: - As above. (3) Metatarsal stress fracture of left foot: Plan: - Pain management as above. - Repeat x-rays stable. Followed up by podiatry 06/06 without change in plan. - Some improvement on 06/08 in pain & swelling of foot. Stable today. (4) Burst fracture of lumbar vertebra: Plan: - Hospitalized 05/04 - 05/[address] Lester on 05/07. - Discharged with Tylenol 1 g twice daily, [place] as needed, gabapentin 300 mg twice daily, Cymbalta 60 mg. - Discharged to [facility] 05/09-05/14 - No longer needs TLSO brace when OOB. (5) Polymyositis-dermatomyositis: Plan: - Follows with [facility] rheumatology. - Continue home prednisone 17 mg daily - If any procedures are performed for the above fractures, may need stress dose steroids at that time. -> Stable presently. (6) Type 1 diabetes mellitus on insulin therapy: Plan: - A1c 6.1% - Glycemic management consultation to pharmacy, appreciate their recommendations. - Last admission sugars were well controlled with Lantus 30 units in a.m., 20-30 units at night depending on sugar with NovoLog goal range [id number], CF 12, CR 4 => Sugars have been 100 - 170 in last 24 hours. Tightened sliding scale on 06/09. (7) Hypertension: Plan: BP today is 160/90. - Continue lisinopril 5 mg in the a.m. (8) Hypercholesterolemia: Plan: - Continue Zetia 10 mg daily. - Patient is statin intolerant. (9) Crohn's disease: Plan: - Entyvio injections q8 weeks--not due for this for 6 more weeks. - Lomotil prn for diarrhea. (10) Insomnia: Plan: - Continue Ambien, trazodone. Plan - Lovenox 40 mg SQ Q12h, SCDs for VTE ppx. - Full Code. Admission and Anticipated Discharge Date Admission Date: May 25, 2022 Subjective Pleasant and doing well. No change in right arm or left leg today compared to yesterday. Reports no fevers/chills, chest pain, shortness of breath, abdominal pain, nausea, or vomiting. Physical Exam Constitutional: WD/WN, vitals as above Eyes: EOM intact bilaterally; no conjunctival abnormality ENMT: external ear and nose normal, oropharynx normal Neck: trachea midline, no thyromegaly normal visual inspection Respiratory: normal respiratory effort, lungs clear to auscultation no respiratory distress Cardiovascular: RRR, no murmur, no edema Gastrointestinal (Abdomen): Inspection/Auscultation: abdomen normal to inspection; abdomen not distended Musculoskeletal: no cyanosis or clubbing, extremities motor strength 5/5 Shoulder: + shoulder abnormal to inspection (Right arm in sling) Ankle: ankle normal to inspection (Left ankle with swelling and bruising) Skin: no rashes, warm and dry Neurologic: moves all extremities and awake Psychiatric: Orientation: alert, oriented to person and cooperative Results & Data Results & Data ([facility]) Vital Signs (Past 12 Hours) Vital Signs Temp Pulse Resp BP Pulse Ox O2 Del Method 06/10/22 15:27 37.3 C 92 H 16 169/90 H 93 Room Air 06/10/22 07:34 36.6 C 70 16 150/79 H 97 Room Air PG Care Time/CCT Total # of Minutes Spent Total Time Spent with Patient: Total time spent is greater than 50% in coordination of care (as documented) at patient's floor/unit and/or counseling patient: Coding Level of Care Code 60411 Subseq Hosp Care Lvl 2 Diagnoses Right radial fracture S52.91XA Supracondylar fracture of humerus S42.413A Metatarsal stress fracture of left foot M84.375A Burst fracture of lumbar vertebra S32.001A Polymyositis-dermatomyositis M33.90 Type 1 diabetes mellitus on insulin therapy E10.9 Hypertension I10 Hypercholesterolemia E78.00 Crohn's disease K50.90 Insomnia G47.00
[2022-06-10] MEDS: DULoxetine HCL 60 MG CAP PO SCH (20:38)
[2022-06-10] MEDS: traZODone HCL 100 MG TAB PO SCH (20:39)
[2022-06-10] MEDS: ZOLPIDEM TARTRATE 10 MG TAB PO PRN (22:41)
[2022-06-11] MEDS: POLYETHYLENE (MIRALAX) 17 GM PACK PO SCH (08:27)
[2022-06-11] MEDS: ACETAMINOPHEN 500 MG TAB PO SCH ×2 (08:27→20:46)
[2022-06-11] MEDS: GABAPENTIN 300 MG CAP PO SCH ×3 (08:28→20:48)
[2022-06-11] MEDS: lisinopril 5 MG TAB PO SCH (08:28)
[2022-06-11] MEDS: predniSONE 5 MG TAB PO SCH (08:28)
[2022-06-11] MEDS: MULTIVITAMIN TAB PO SCH (08:28)
[2022-06-11] MEDS: TAMSULOSIN HCL 0.4 MG CAP PO SCH (08:28)
[2022-06-11] MEDS: EZETIMIBE 10 MG TABLET PO SCH (08:28)
[2022-06-11] MEDS: ENOXAPARIN INJ 40 MG/0.4 ML SYR SQ SCH ×2 (08:29→20:47)
[2022-06-11] MEDS: LANTUS PER UNIT CHARGE SQ SCH (08:40)
[2022-06-11] MEDS: INSULIN ASPART PER UNIT SC SCH ×4 (08:41→21:03)
--- NOTE | 2022-06-11 14:00 | Hospitalist Progress Note ---
Date of Service June 11, 2022 Assessment & Plan (1) Right radial fracture: Plan: With concomitant supracondylar humeral fracture. Appreciate orthopedic consultation. Nonoperative management at this time. He is nonweightbearing to the right upper extremity. Pain control measures. (2) Supracondylar fracture of humerus: Plan: As above. Orthopedic consult and management (3) Metatarsal stress fracture of left foot: Plan: Pain management as above. Repeat x-rays stable. Followed up by podiatry 06/06 without change in plan. Nonoperative management (4) Burst fracture of lumbar vertebra: Plan: - Hospitalized 05/04 - 05/[address] Lester on 05/07. Discharged with Tylenol 1 g twice daily, [place] as needed, gabapentin 300 mg twice daily, Cymbalta 60 mg. Status post [facility] 05/09-05/14. (5) Polymyositis-dermatomyositis: Plan: Follows with [facility] rheumatology. Steroid-dependent. Continue home prednisone 17 mg daily. (6) Type 1 diabetes mellitus on insulin therapy: Plan: A1c 6.1%. ADA diet. Sliding scale coverage as needed (7) Hypertension: Plan: Stable with lisinopril 5 mg in the a.m. (8) Hypercholesterolemia: Plan: Continue Zetia 10 mg daily. Patient is statin intolerant. (9) Crohn's disease: Plan: Entyvio injections q8 weeks--not due for this for 6 more weeks. Lomotil prn for diarrhea. (10) Insomnia: Plan: Treated with Ambien, trazodone. Plan Lovenox 40 mg SQ Q12h, SCDs for VTE ppx. Full Code. Disposition: Eventual SNF placement when final arrangements are made Admission and Anticipated Discharge Date Admission Date: May 25, 2022 Subjective Alert and oriented. No new complaints. Hemodynamically stable. Awaiting SNF placement. There are no beds apparently at [facility] or [facility] currently. Review of Systems Review of Systems: Constitutional-no fever or chills ENT-no blurred vision, no double vision, no epistaxis, no sore throat Respiratory-no cough, no wheezing, no shortness of breath Cardiac-no palpitations, no chest pain, no syncope GI-no nausea, vomiting, diarrhea, melena, hematochezia -no urinary retention, no urinary incontinence, no dysuria, no hematuria Musculoskeletal-right arm is bandaged and immobilized. Left foot edema noted Skin-no bruising, no rashes, no pruritus Neuro-no isolated weakness, no paresthesia, no weakness Psych-no depression, no anxiety Physical Exam Physical Exam: General-alert and oriented x3, no fevers, no chills HEENT-head atraumatic and normocephalic, pupils equal and reactive to light, extraocular muscles intact Neck-no lymphadenopathy or thyromegaly, trachea midline Chest-clear to auscultation percussion. No rales wheezing or rhonchi Cardiac-regular rate and rhythm, normal S1 and S2, no murmurs Abdomen-normal bowel sounds, nontender, no hepatosplenomegaly Extremities-right arm bandaged and immobilized. Left foot edema and ecchymoses noted Neuro-cranial nerves II through XII intact, motor and sensory function within normal limits, strength symmetrical , no focal deficits Psych-normal affect, normal mood Results & Data Results & Data ([facility]) Vital Signs (Past 12 Hours) Vital Signs Temp Pulse Resp BP Pulse Ox O2 Del Method 06/11/22 07:30 36.7 C 74 16 147/77 H 95 Room Air Laboratory Results 06/07/22 08:15 06/07/22 08:15 PG Care Time/CCT Total # of Minutes Spent Total Time Spent with Patient: Total time spent is greater than 50% in coordination of care (as documented) at patient's floor/unit and/or counseling patient: Coding Level of Care Code 72516 Subseq Hosp Care Lvl 3 Diagnoses Right radial fracture S52.91XA Supracondylar fracture of humerus S42.413A Metatarsal stress fracture of left foot M84.375A Burst fracture of lumbar vertebra S32.001A Polymyositis-dermatomyositis M33.90 Type 1 diabetes mellitus on insulin therapy E10.9 Hypertension I10 Hypercholesterolemia E78.00 Crohn's disease K50.90 Insomnia G47.00
[2022-06-11] MEDS: DULoxetine HCL 60 MG CAP PO SCH (20:47)
[2022-06-11] MEDS: traZODone HCL 100 MG TAB PO SCH (20:48)
[2022-06-11] MEDS: ZOLPIDEM TARTRATE 10 MG TAB PO PRN (22:17)
[2022-06-12] MEDS: LANTUS PER UNIT CHARGE SQ SCH (08:51)
[2022-06-12] MEDS: INSULIN ASPART PER UNIT SC SCH ×4 (08:51→20:55)
[2022-06-12] MEDS: ENOXAPARIN INJ 40 MG/0.4 ML SYR SQ SCH (08:52)
[2022-06-12] MEDS: GABAPENTIN 300 MG CAP PO SCH ×3 (08:52→19:58)
[2022-06-12] MEDS: TAMSULOSIN HCL 0.4 MG CAP PO SCH (08:52)
[2022-06-12] MEDS: EZETIMIBE 10 MG TABLET PO SCH (08:52)
[2022-06-12] MEDS: predniSONE 5 MG TAB PO SCH (08:52)
[2022-06-12] MEDS: ACETAMINOPHEN 500 MG TAB PO SCH ×2 (08:52→19:57)
[2022-06-12] MEDS: lisinopril 5 MG TAB PO SCH (08:52)
[2022-06-12] MEDS: MULTIVITAMIN TAB PO SCH (08:52)
[2022-06-12] MEDS: POLYETHYLENE (MIRALAX) 17 GM PACK PO SCH (08:53)
--- NOTE | 2022-06-12 14:31 | Hospitalist Progress Note ---
Date of Service June 12, 2022 Assessment & Plan (1) Right radial fracture: Plan: With concomitant supracondylar humeral fracture. Appreciate orthopedic consultation. Nonoperative management at this time. He is nonweightbearing to the right upper extremity. Pain control measures. (2) Supracondylar fracture of humerus: Plan: As above. Orthopedic consult and management (3) Metatarsal stress fracture of left foot: Plan: Pain management as above. Repeat x-rays stable. Followed up by podiatry 06/06 without change in plan. Nonoperative management (4) Burst fracture of lumbar vertebra: Plan: Hospitalized 05/04 - 05/[address] Lester on 05/07. Discharged with Tylenol 1 g twice daily, [place] as needed, gabapentin 300 mg twice daily, Cymbalta 60 mg. Status post [facility] 05/09-05/14. (5) Polymyositis-dermatomyositis: Plan: Follows with [facility] rheumatology. Steroid-dependent. Continue home prednisone 17 mg daily. (6) Type 1 diabetes mellitus on insulin therapy: Plan: A1c 6.1%. ADA diet. Sliding scale coverage as needed (7) Hypertension: Plan: Stable with lisinopril 5 mg in the a.m. (8) Hypercholesterolemia: Plan: Continue Zetia 10 mg daily. Patient is statin intolerant. (9) Crohn's disease: Plan: Entyvio injections q8 weeks--not due for this for 6 more weeks. Lomotil prn for diarrhea. (10) Insomnia: Plan: Treated with Ambien, trazodone. Plan Lovenox 40 mg SQ daily , SCDs for VTE ppx. Full Code. Disposition: Eventual SNF placement when final arrangements are made Admission and Anticipated Discharge Date Admission Date: May 25, 2022 Subjective Alert and oriented. No new problems. He is asking at the [place] catheter be removed. Awaiting for insurance authorization for discharge to SNF Review of Systems Review of Systems: Constitutional-no fever or chills ENT-no blurred vision, no double vision, no epistaxis, no sore throat Respiratory-no cough, no wheezing, no shortness of breath Cardiac-no palpitations, no chest pain, no syncope GI-no nausea, vomiting, diarrhea, melena, hematochezia -no urinary retention, no urinary incontinence, no dysuria, no hematuria Musculoskeletal-no joint pain, no muscle tenderness Skin-no bruising, no rashes, no pruritus Neuro-no isolated weakness, no paresthesia, no weakness Psych-no depression, no anxiety Physical Exam Physical Exam: General-alert and oriented x3, no fevers, no chills HEENT-head atraumatic and normocephalic, pupils equal and reactive to light, e xtraocular muscles intact Neck-no lymphadenopathy or thyromegaly, trachea midline Chest-clear to auscultation percussion. No rales wheezing or rhonchi Cardiac-regular rate and rhythm, normal S1 and S2, no murmurs Abdomen-normal bowel sounds, nontender, no hepatosplenomegaly Extremities-right arm bandaged and immobilized. Left foot edema and ecchymoses noted Neuro-cranial nerves II through XII intact, motor and sensory function within normal limits, strength symmetrical , no focal deficits Psych-normal affect, normal mood Results & Data Results & Data ([facility]) Vital Signs (Past 12 Hours) Vital Signs Temp Pulse Resp BP Pulse Ox O2 Del Method 06/12/22 06:16 36.4 C L 76 16 134/79 96 Room Air Laboratory Results 06/07/22 08:15 06/07/22 08:15 PG Care Time/CCT Total # of Minutes Spent Total Time Spent with Patient: Total time spent is greater than 50% in coordination of care (as documented) at patient's floor/unit and/or counseling patient: Coding Level of Care Code 85721 Subseq Hosp Care Lvl 3 Diagnoses Right radial fracture S52.91XA Supracondylar fracture of humerus S42.413A Metatarsal stress fracture of left foot M84.375A Burst fracture of lumbar vertebra S32.001A Polymyositis-dermatomyositis M33.90 Type 1 diabetes mellitus on insulin therapy E10.9 Hypertension I10 Hypercholesterolemia E78.00 Crohn's disease K50.90 Insomnia G47.00
[2022-06-12] MEDS: DULoxetine HCL 60 MG CAP PO SCH (19:58)
[2022-06-12] MEDS: traZODone HCL 100 MG TAB PO SCH (19:59)
[2022-06-12] MEDS: ZOLPIDEM TARTRATE 10 MG TAB PO PRN (22:07)
[2022-06-13] MEDS ORDERED: ENOXAPARIN INJ 40 MG/0.4 ML SYR SQ SCH (09:00)
[2022-06-13] MEDS: INSULIN ASPART PER UNIT SC SCH ×2 (09:14→13:11)
[2022-06-13] MEDS: LANTUS PER UNIT CHARGE SQ SCH (09:17)
[2022-06-13] MEDS: POLYETHYLENE (MIRALAX) 17 GM PACK PO SCH (09:31)
[2022-06-13] MEDS: ACETAMINOPHEN 500 MG TAB PO SCH (09:33)
[2022-06-13] MEDS: GABAPENTIN 300 MG CAP PO SCH ×2 (09:38→13:13)
[2022-06-13] MEDS: EZETIMIBE 10 MG TABLET PO SCH (09:38)
[2022-06-13] MEDS: MULTIVITAMIN TAB PO SCH (09:39)
[2022-06-13] MEDS: lisinopril 5 MG TAB PO SCH (09:39)
[2022-06-13] MEDS: TAMSULOSIN HCL 0.4 MG CAP PO SCH (09:40)
[2022-06-13] MEDS: predniSONE 5 MG TAB PO SCH (09:40)
--- NOTE | 2022-06-13 12:30 | Discharge Summary ---
Date of Service June 13, 2022 Admission HPI Per Admitting Provider Edmundo Rodrigues is a 61-year-old male with past medical history significant for polymyositisdermatomyositis, chronic muscle weakness, DM 1, hypertension, hyperlipidemia who presents today after falling at home. Patient was ambulating at home when his legs gave out on him, causing him to land on his right arm. This is not unusual for patient, as he does have muscle weakness diffuse due to his polymyositis. He is complaining of pain in his foot and right arm. He did not hit his head or lose consciousness. No other complaints, is without chest pain, palpitations, shortness of breath, abdominal pain, nausea, vomiting. He was just admitted from 05/04-04/2014 for a lumbar burst fracture. He did undergo an L1 kyphoplasty with Dr. Lester on 05/07. He was discharged to [facility] 05/09 and returned home on 05/14. Since then, he has had his usual weakness which did bleed as well today. Multiple scans done for fall, R elbow XR significant for a nondisplaced supracondylar humeral fracture, avulsion fracture of the radial head, with swelling and a joint effusion. Foot XR shows fractures of the first, second, and third metatarsals. No definite intra-articular extension is seen. There is associated soft tissue swelling. Head CT, lumbar and cervical spine CT, pelvis XR, and CXR unremarkable for additional injuries. On presentation to the ED, his vital signs are within normal limits and stable. He does have an elevated WBC of 16, however is on chronic steroids. BMP significant for elevated ALT and alk phos which is unchanged for patient. No electrolyte abnormalities or acute kidney injury. His urine does not appear infected. COVID-negative. Principal Diagnosis Multiple right arm fractures, multiple left foot fractures Discharge Exam General-alert and oriented x3, no fevers, no chills HEENT-head atraumatic and normocephalic, pupils equal and reactive to light, extraocular muscles intact Neck-no lymphadenopathy or thyromegaly, trachea midline Chest-clear to auscultation percussion. No rales wheezing or rhonchi Cardiac-regular rate and rhythm, normal S1 and S2, no murmurs Abdomen-normal bowel sounds, nontender, no hepatosplenomegaly Extremities-right arm bandaged and immobilized. Left foot edema and ecchymoses noted Neuro-cranial nerves II through XII intact, motor and sensory function within normal limits, strength symmetrical , no focal deficits Psych-normal affect, normal mood Discharge Data Allergies Allergy/AdvReac Type Severity Reaction Status Date / Time mercaptopurine AdvReac Severe JAUNDICE Verified 05/16/22 11:22 Consultations 05/24/22 14:19 ED Decision to Admit Stat 05/24/22 14:37 Consult Orthopedic Surgery Stat 05/24/22 14:52 Consult Orthopedic Surgery Routine 05/24/22 17:27 Consult Podiatry Routine Ordered Studies 05/24/22 11:36 CT cervical spine wo con Stat CT head/brain wo con Stat CT lumbar spine wo con Stat 05/29/22 13:17 US venous doppler LE LT Routine Hospital Course (1) Right radial fracture: With concomitant supracondylar humeral fracture. Appreciate orthopedic consultation. Nonoperative management at this time. He is nonweightbearing to the right upper extremity. Pain control measures. (2) Supracondylar fracture of humerus: As above. Orthopedic consult and management (3) Metatarsal stress fracture of left foot: Pain management as above. Repeat x-rays stable. Followed up by podiatry 06/06 without change in plan. Nonoperative management (4) Burst fracture of lumbar vertebra: Hospitalized 05/04 - 05/[address] Lester on 05/07. Discharged with Tylenol 1 g twice daily, [place] as needed, gabapentin 300 mg twice daily, Cymbalta 60 mg. Status post [facility] 05/09-05/14. (5) Polymyositis-dermatomyositis: Follows with [facility] rheumatology. Steroid-dependent. Continue home prednisone 17 mg daily. (6) Type 1 diabetes mellitus on insulin therapy: A1c 6.1%. ADA diet. Sliding scale coverage as needed (7) Hypertension: Stable with lisinopril 5 mg in the a.m. (8) Hypercholesterolemia: Continue Zetia 10 mg daily. Patient is statin intolerant. (9) Crohn's disease: Entyvio injections q8 weeks--not due for this for 6 more weeks. Lomotil prn for diarrhea. (10) Insomnia: Treated with Ambien, trazodone. Plan Lovenox 40 mg SQ daily , SCDs for VTE ppx. Full Code. Disposition: Plan discharge to [facility] today, June 13. Total Time Total Time Spent Total Time Spent (In Minutes): 35 minutes Discharge Plan Discharge Items Patient Disposition: Transfer [facility] Reason For Visit: FALL AT HOME Discharge Diagnosis: Multiple right arm fractures, multiple left foot fractures Activity: As commented below Activity Comment: Up with assistance. Nonweightbearing on the right arm. Weightbearing as t Non-emergency contact: Primary Care Provider Call non-emergency contact if: you have any medication questions Follow-up/Referrals: Micheal Hathaway III, CRNP [Primary Care Provider] - Diet: Carb Consistent or DM2 and Heart Healthy Addtl Attending Provider Instructions: May straight cath as needed. Pending Studies at Discharge: No Stand-Alone Forms: My [facility] Skilled Items Patient informed of condition?: Yes DNR: No Discharge Level of Care: Skilled Communicable Disease: No Discharge Prognosis: Stable Lines: None Urinary Catheter: No Medications and DC Order Prescriptions: New insulin glargine [Lantus U-100 Insulin] 100 unit/mL Solution 30 unit subcut DAILY Qty: 0 0RF polyethylene glycol 3350 [Miralax] 17 gram Powder In Packet 17 g PO DAILY Qty: 0 0RF tamsulosin 0.4 mg Capsule 0.4 mg PO QAM Qty: 0 0RF enoxaparin [Lovenox] 40 mg/0.4 mL Syringe 40 mg subcut DAILY Qty: 0 0RF Continued (DME) FreeStyle [place] 14 Day [place] Misc See Rx Instructions .MEDSUPPLY Qty: 1 0RF Rx Instructions: Use to test blood glucose 4 times daily lisinopril 5 mg tablet 5 mg PO QAM Qty: 90 3RF (DME) FreeStyle [place] 14 Day Sensor Kit See Rx Instructions .MEDSUPPLY Qty: 2 6RF Rx Instructions: Use to test blood glucose 4 times daily zolpidem 12.5 mg tablet,ext release multiphase 12.5 mg PO HS PRN (Reason: insomnia) Qty: 30 2RF (DME) pen needle, diabetic [BD Ultra-Fine Marsha Pen Needle] 32 gauge x 5/32" needle See Dose Instructions .ROUTE .MEDSUPPLY Qty: 500 1RF Rx Instructions: Use to inject insulin 4 times daily gabapentin 300 mg capsule 300 mg PO BID Qty: 180 1RF trazodone 100 mg tablet 100 mg PO HS Qty: 90 3RF Lift seat for toilet 1 ea NA ONCE Qty: 1 0RF Rx Instructions: Electric lift seat for toilet. Length of need: 99. multivitamin [Daily Multi-Vitamin] tablet 1 tab PO QAM vedolizumab 300 mg recon soln 300 mg IV Q8WK (DME) OneTouch Ultra Blue Test Strip strip See Dose Instructions .ROUTE .MEDSUPPLY Qty: 10 Rx Instructions: TWICE DAILY diphenoxylate-atropine 2.5-0.025 mg tablet 1 tab PO QID PRN (Reason: diarrhea) Qty: 360 0RF insulin glargine [Basaglar KwikPen U-100 Insulin] 100 unit/mL (3 mL) insulin pen 65 unit subcut QAM (DME) CPAP Supplies Misc See Rx Instructions .ROUTE .MEDSUPPLY Qty: 1 0RF Rx Instructions: CPAP supplies: headgear, hose/tubing, filters, all necessary supplies duloxetine 60 mg capsule,delayed release(DR/EC) 60 mg PO QPM hydrocodone-acetaminophen 5-325 mg tablet 1 tab PO Q6H PRN (Reason: Pain) diclofenac sodium [Voltaren Arthritis Pain] 1 % Gel 4 g EXT QID PRN (Reason: joint pain) Qty: 100 0RF Rx Instructions: please give tube from hospital insulin aspart U-100 [Novolog U-100 Insulin aspart] 100 unit/mL Solution See Rx Instructions .ROUTE .COMPLEX Qty: 10 0RF Rx Instructions: supplemental sliding scale. BSG goal range 110-140. Correction factor 12. Carb ratio - 1 unit of novolog for every 4 grams of carbohydrates consumed. prednisone 5 mg tablet 17 mg PO QAM Qty: 90 0RF acetaminophen [Tylenol Extra Strength] 500 mg Tablet 1,000 mg PO BID Qty: 30 0RF Rx Instructions: OTC ezetimibe 10 mg tablet 10 mg PO DAILY Rx Instructions: TAKE 1 TABLET DAILY Discharge Orders: Discharge Order (Routine); Ordered 06/13/22 Ordered By: Rivera Ramos Admission Data Admit Date/Time: 05/25/22 12:32 Attending Provider: Rivera Ramos Admit Provider: Jesus Ma Primary Care Provider: Griel,Micheal C. III Other Providers: Stefano Wooten ; Jesus Ma ; Joe Doss at [facility] ; Satya Villegas ; Saran Erickson ; [place],[facility] Coding Level of Care Code D/C DAY MANAGEMENT >30 MINS Diagnoses Right radial fracture S52.91XA Supracondylar fracture of humerus S42.413A Metatarsal stress fracture of left foot M84.375A Burst fracture of lumbar vertebra S32.001A Polymyositis-dermatomyositis M33.90 Type 1 diabetes mellitus on insulin therapy E10.9 Hypertension I10 Hypercholesterolemia E78.00 Crohn's disease K50.90 Insomnia G47.00
== END 2022-06-13 15:25 ==
LOC: 3W 11:23 → ED 11:23 → SUATTDRO 14:20 → 3W 17:59 → SUATTDRO 05-25 12:32
DX: S92.312A Displaced fracture of first metatarsal bone, left foot, initial encounter for closed fracture; S92.332A Displaced fracture of third metatarsal bone, left foot, initial encounter for closed fracture; K50.90 Crohn's disease, unspecified, without complications; S92.322A Displaced fracture of second metatarsal bone, left foot, initial encounter for closed fracture; Z88.8 Allergy status to other drugs, medicaments and biological substances; E78.5 Hyperlipidemia, unspecified; M84.375A Stress fracture, left foot, initial encounter for fracture; Y92.009 Unspecified place in unspecified non-institutional (private) residence as the place of occurrence of the external cause; S52.121A Displaced fracture of head of right radius, initial encounter for closed fracture; S42.411A Displaced simple supracondylar fracture without intercondylar fracture of right humerus, initial encounter for closed fracture; R33.9 Retention of urine, unspecified; M33.90 Dermatopolymyositis, unspecified, organ involvement unspecified; G47.00 Insomnia, unspecified; W19.XXXA Unspecified fall, initial encounter; Z79.899 Other long term (current) drug therapy; I10 Essential (primary) hypertension; Z87.891 Personal history of nicotine dependence; Z79.52 Long term (current) use of systemic steroids; E10.40 Type 1 diabetes mellitus with diabetic neuropathy, unspecified; Z99.3 Dependence on wheelchair; Z79.4 Long term (current) use of insulin

== ENCOUNTER 2022-09-21 22:08 | Inpatient (IN) ==
[2022-09-21] MEDS ORDERED: MoRPHine SULFATE 4 MG/ML 1 ML CARP\\VIAL IV STA (22:14)
[2022-09-21] MEDS ORDERED: SODIUM CHLORIDE 0.9% 1000ML 1,000 ML IV STA (22:14)
[2022-09-21] MEDS ORDERED: ONDANSETRON INJ 2 MG/ML 2 ML VIAL IV STA (22:14)
[2022-09-21] MEDS ORDERED: ONDANSETRON INJ 2 MG/ML 2 ML VIAL ONE (22:17)
[2022-09-21] MEDS ORDERED: MoRPHine SULFATE 10 MG/ML CARP/VIAL ONE (22:18)
--- NOTE | 2022-09-21 22:25 | Emergency Department Note ---
History of Present Illness General Chief complaint: Abdominal Pain Stated complaint: abdominal pain Time Seen by Provider: 09/21/22 22:10 History of Present Illness This 60-year-old gentleman with Crohn's disease has been out of his Crohn's medication for the past month secondary to insurance issues on chronic steroids presents to the ER complaining of severe abdominal pain today. He said prior abdominal surgeries. He states this feels worse than Crohn's or. No blood or black or mucus in the stool. Patient has chest pain, dyspnea, fevers, flulike illness. Home Medications Medication Instructions Recorded Confirmed Type multivitamin (Daily Multi-Vitamin 1 tab PO QAM 03/04/19 09/21/22 History tablet) blood sugar diagnostic (OneTouch #10 ea 04/01/19 09/17/22 History Ultra Blue Test Strip) diphenoxylate-atropine 2.5 1 tab PO QID PRN diarrhea #360 tabs 07/20/19 09/21/22 Rx mg-0.025 mg tablet CPAP Supplies #1 ea 10/08/19 09/17/22 Rx duloxetine 60 mg capsule,delayed 60 mg PO QPM 03/01/20 09/21/22 History release flash glucose scanning reader #1 ea 06/21/20 09/17/22 Rx (FreeStyle [place] 14 Day [place]) lisinopril 5 mg tablet 5 mg PO QAM #90 tabs 11/06/21 09/21/22 Rx pen needle, diabetic 32 gauge x #500 ea 03/12/22 09/17/22 Rx 5/32" (BD Ultra-Fine Marsha Pen Needle) gabapentin 300 mg capsule 300 mg PO BID #180 caps 03/15/22 09/21/22 Rx ezetimibe 10 mg tablet 10 mg PO DAILY 04/28/22 09/21/22 History acetaminophen 500 mg tablet 1,000 mg PO BID #30 tabs 05/09/22 09/21/22 Rx (Tylenol Extra Strength) trazodone 100 mg tablet 100 mg PO HS #90 tabs 05/23/22 09/21/22 Rx insulin aspart U-100 100 unit/mL See Rx Instructions .Route 07/10/22 09/21/22 Rx subcutaneous solution (Novolog .COMPLEX #10 mL U-100 Insulin aspart) insulin glargine 100 unit/mL (3 65 unit (0.65 mL) subcut QAM 90 07/10/22 09/21/22 Rx mL) subcutaneous pen (Basaglar days #60 mL KwikPen U-100 Insulin) pen needle, diabetic 31 gauge x #150 ea 07/10/22 09/17/22 Rx 3/16" (Comfort EZ Pen [place]) finasteride 5 mg tablet 5 mg PO DAILY #30 tabs 07/31/22 09/21/22 Rx CPAP Machine #1 ea 08/02/22 09/17/22 Rx flash glucose sensor (FreeStyle #2 ea 08/07/22 09/17/22 Rx [place] 14 Day Sensor kit) zolpidem 12.5 mg tablet,extended 12.5 mg PO HS PRN insomnia #30 tabs 09/05/22 09/21/22 Rx release,multiphase calcium carbonate 600 mg-vitamin 1 tab PO DAILY 09/17/22 09/21/22 History D3 10 mcg (400 unit) tablet (Calcium 600 + D(3)) prednisone 10 mg tablet 15 mg PO QAM 09/21/22 09/21/22 History tamsulosin 0.4 mg capsule 0.4 mg PO HS 09/21/22 09/21/22 History vedolizumab 300 mg intravenous 300 mg IV Q8WK #1 ea 09/21/22 09/21/22 Rx solution Allergies Allergy/AdvReac Type Severity Reaction Status Date / Time mercaptopurine AdvReac Severe JAUNDICE Verified 09/17/22 15:17 Past Med/Surg History Medical History Burst fracture of lumbar vertebra Chronic back pain Chronic steroid use Crohn's disease (~08/2021) Diverticulosis Dysfunction of right eustachian tube Elevated hemoglobin A1c Fall in home History of intestinal obstruction History of migraine HLD (hyperlipidemia) HTN (hypertension) Hypercholesterolemia Hypertension Inclusion body myositis Follows with [facility] Rheumatology Insomnia Mixed conductive and sensorineural hearing loss of right ear with restricted hearing of left ear Neuropathy Osteoarthritis Polymyositis-dermatomyositis Sleep apnea CPAP Statin myopathy Type 1 diabetes mellitus on insulin therapy Urinary retention Wheelchair bound Surgical History History of biopsy muscle History of cholecystectomy History of colonoscopy History of esophagogastroduodenoscopy (EGD) History of incision and drainage (2017) I&D of sebaceous cyst right upper back History of intestinal surgery History of surgery (2017) epidermal cyst excision History of wisdom tooth extraction Family History Unknown Breast cancer Father Diabetes Father Hearing loss Stroke Mother Hypertension Cancer Heart disease Other Allergies No family history of adverse response to anesthesia No family history of bleeding disorder Denies family history of Ovarian cancer Prostate cancer Myocardial infarction Colorectal cancer Social History Smoking Status: Former smoker Tobacco Type: Cigarettes Age Started Using Tobacco: 14; Age Quit Using Tobacco: 17; Second Hand Exposure: No; Hx Alcohol Use: No Hx Substance Use: No Preferred Language: Urdu Communication Ability: Effective Visual Impairment: No Limitations Hearing Ability: Normal Podopediatrician Required: No Beliefs That Will Affect Care: None marital status: Current Living Situation: Spouse current occupational status: employed current occupation: security How many Children do You have: 2 Feels Safe at Home: Yes Childhood Exposure to Second-Hand Smoke: Yes Diet Comment: regular caffeine: Yes during the past year weight has: remained stable Dental Care, Regularly: Yes Physical Activity Frequency: Does not Exercise Seatbelt Use: always Sunscreen Use: Yes Assistive Devices: Cane, Stair Lift, Walker and Wheelchair Review of Systems A total of 10 systems reviewed and were otherwise negative Physical Exam Vital Signs Vital Signs - 24 hr 09/21/22 22:13 Temperature 36.5 C Temperature Source Oral Pulse Rate 84 Respiratory Rate 22 Blood Pressure 175/90 H Blood Pressure Mean 118 Blood Pressure Position Lying Pulse Oximetry 99 Oxygen Delivery Method Room Air Sepsis Recent Fever Within 48 Hours No Sepsis New/Unexplained Change in Mental Status N/A Sepsis Action Taken by Nursing No Action Required VITALS: Vitals are noted on the nurse's note and reviewed by myself. Vital signs reviewed. GENERAL: Pleasant gentleman who appears in pain, in no acute distress, nondiaphoretic, well-developed well-nourished. SKIN: The skin was without rashes, erythema, edema, or bruising. There is no tenting of the skin. Capillary reflex less than 2 seconds. HEAD: Normocephalic atraumatic. EARS: External auditory canals clear, EYES: Pupils equal round and reactive to light and accommodation. Conjunctivae without injection, sclerae without icterus. Extraocular movements intact. NOSE: Patent, turbinates without inflammation or discharge. MOUTH: Mucous membranes moist. Pharynx without erythema or exudate. Uvula midline. Airway patent. Tongue does not deviate. NECK: Supple without nuchal rigidity. No lymphadenopathy. No thyromegaly. Cervical spine is nontender. No JVD. HEART: Regular rate and rhythm LUNGS: Clear to auscultation bilaterally without wheezes, rales or rhonchi. No retractions or accessory muscle use. ABDOMEN: Positive bowel sounds x 4. Normal tympanic percussion. Soft, diffusely tender to palpation, without masses or organomegaly. Turner sign negative. No guarding or rebound tenderness. No CVA tenderness MUSCULOSKELETAL: No muscle atrophy, erythema, or edema noted. NEURO: Patient was alert and oriented to person place and time. Normal sensation to light and sharp touch. No focal neurological deficits. Course Administered Medications Discontinued Medications Hydromorphone HCl (Hydromorphone Inj 0.5 Mg/0.5 Ml Syr) 0.5 mg IV NOW STA Stop: 09/21/22 23:52 Last Admin: 09/21/22 23:55 Dose: 0.5 mg Documented By: Sodium Chloride (Nss 1000ml) 1,000 mls @ 999 mls/hr IV .Q1H1M STA Stop: 09/21/22 23:14 Last Infusion: 09/21/22 23:45 Dose: 0 mls/hr Documented By: Admin: 09/21/22 22:29 Dose: 999 mls/hr Documented By: Ioversol (Optiray 350 100ml) 81 ml IV ONCE ONE Stop: 09/21/22 23:31 Last Admin: 09/21/22 23:09 Dose: 81 ml Documented By: MARQUISE Morphine Sulfate (Morphine Sulfate 4 Mg/Ml 1 Ml Carp\\Vial) 4 mg IV NOW STA Stop: 09/21/22 22:15 Last Admin: 09/21/22 22:29 Dose: 4 mg Documented By: Ondansetron HCl (Ondansetron Inj 2 Mg/Ml 2 Ml Vial) 4 mg IV NOW STA Stop: 09/21/22 22:15 Last Admin: 09/21/22 22:29 Dose: 4 mg Documented By: Medical Decision Making Medical Records Attestation: I reviewed the patient's medical records. Home Medications Current Medication List: was personally reviewed by me Laboratory Data Attestation: I reviewed the patient's lab results. 09/21/22 22:20 09/21/22 22:20 Lab Results 09/21/22 09/21/22 09/21/22 Range/Units 22:20 22:20 22:20 WBC 20.45 H (4.8-10.8) K/ul RBC 6.05 (4.70-6.10) M/uL Hgb 17.7 (14.0-18.0) g/dl Hct 51.6 (42.0-52.0) % MCV 85.3 (80.0-100.0) fL MCH 29.3 (25.0-34.0) pg MCHC 34.3 (32.0-36.0) g/dL RDW Std Deviation 41.4 (36.4-46.3) fL RDW Coeff of Amy 13.2 (11.5-14.5) % Plt Count 295 (130-400) K/uL MPV 10.5 (9.4-12.4) fL Immature Gran % (Auto) 0.5 % Neut % (Auto) 79.5 % Lymph % (Auto) 10.8 % Lawrence % (Auto) 7.9 % Eos % (Auto) 1.0 % Baso % (Auto) 0.3 % Neut # (Auto) 16.24 H (1.40-6.50) K/uL Lymph # (Auto) 2.20 (1.2-3.4) K/uL Lawrence # (Auto) 1.62 H (0.11-0.59) K/uL Eos # (Auto) 0.21 (0-0.50) K/uL Baso # (Auto) 0.07 (0-0.2) K/uL Immature Gran # (Auto) 0.11 (0.01-0.20) K/uL ESR 17 (0-20) mm/hr Sodium 141 (136-145) mmol/L Potassium 3.9 (3.5-5.1) mmol/L Chloride 102 (98-107) mmol/L Carbon Dioxide 29 (21-32) mmol/L Anion Gap 10 (3-11) BUN 16 (6-23) mg/dl Creatinine 0.60 (0.6-1.4) mg/dl Est Cr Clr Drug Dosing 160.9 ml/min Est GFR ( Amer) 124.9 ml/min Est GFR (Non-Af Amer) 107.8 ml/min BUN/Creatinine Ratio 26.7 H (10-20) Glucose 86 (70-99(Fasting)) mg/dl POC Glucose (70-99) mg/dl Lactate (0.4-2.0) mmol/L Calcium 9.8 (8.5-10.1) mg/dl Total Bilirubin 0.8 (0.2-1.0) mg/dl AST 30 (13-39) U/L ALT 46 (7-52) U/L Alkaline Phosphatase 83 (34-104) U/L Troponin I High Sens 9.6 (0-20) pg/ml C-Reactive Protein 3.16 H (0-0.5) mg/dl Total Protein 6.6 (6.0-8.3) gm/dl Albumin 4.1 (3.4-5.0) gm/dl Globulin 2.5 (2.5-4.0) gm/dl Albumin/Globulin Ratio 1.6 (0.9-2) Lipase 3 L (11-82) U/L SARS-CoV-2, RNA, NAAT (NEGATIVE) 09/21/22 09/21/22 09/21/22 Range/Units 22:20 22:35 22:40 WBC (4.8-10.8) K/ul RBC (4.70-6.10) M/uL Hgb (14.0-18.0) g/dl Hct (42.0-52.0) % MCV (80.0-100.0) fL MCH (25.0-34.0) pg MCHC (32.0-36.0) g/dL RDW Std Deviation (36.4-46.3) fL RDW Coeff of Amy (11.5-14.5) % Plt Count (130-400) K/uL MPV (9.4-12.4) fL Immature Gran % (Auto) % Neut % (Auto) % Lymph % (Auto) % Lawrence % (Auto) % Eos % (Auto) % Baso % (Auto) % Neut # (Auto) (1.40-6.50) K/uL Lymph # (Auto) (1.2-3.4) K/uL Lawrence # (Auto) (0.11-0.59) K/uL Eos # (Auto) (0-0.50) K/uL Baso # (Auto) (0-0.2) K/uL Immature Gran # (Auto) (0.01-0.20) K/uL ESR (0-20) mm/hr Sodium (136-145) mmol/L Potassium (3.5-5.1) mmol/L Chloride (98-107) mmol/L Carbon Dioxide (21-32) mmol/L Anion Gap (3-11) BUN (6-23) mg/dl Creatinine (0.6-1.4) mg/dl Est Cr Clr Drug Dosing ml/min Est GFR ( Amer) ml/min Est GFR (Non-Af Amer) ml/min BUN/Creatinine Ratio (10-20) Glucose (70-99(Fasting)) mg/dl POC Glucose 81 (70-99) mg/dl Lactate 2.3 H* (0.4-2.0) mmol/L Calcium (8.5-10.1) mg/dl Total Bilirubin (0.2-1.0) mg/dl AST (13-39) U/L ALT (7-52) U/L Alkaline Phosphatase (34-104) U/L Troponin I High Sens (0-20) pg/ml C-Reactive Protein (0-0.5) mg/dl Total Protein (6.0-8.3) gm/dl Albumin (3.4-5.0) gm/dl Globulin (2.5-4.0) gm/dl Albumin/Globulin Ratio (0.9-2) Lipase (11-82) U/L SARS-CoV-2, RNA, NAAT NEGATIVE (NEGATIVE) Imaging Data Attestation: I personally reviewed and interpreted this imaging study as follows: MDM Narrative Prior records/ancillary studies reviewed. Triage Nursing notes reviewed. Additional history obtained from nursing. The patient's history was concerning for abdominal pain. Differential diagnosis: Etiologies such as Crohn's exacerbation, appendicitis, diverticulitis, PUD, biliary pathology, UTI, pancreatitis, obstruction, mesenteric ischemia, aortic pathology, infections, inflammatory bowel disease, renal colic, as well as other s were entertained. Physical examination findings: As above. ER treatment provided: An order was placed for continuous cardiac monitoring. The monitor shows a rate of 60-150 with a sinus rhythm per my Independent interpretation. IV fluids morphine and Zofran ordered by myself On reassessment the patient felt better. Diagnostics interpreted by me: ECG: Ordered for upper abdominal pain but independently interpreted myself EKG: Normal sinus, normal nose, no acute ST-T changes. Impression normal sinus rhythm interpreted by myself I think arrhythmia is unlikely. EKG shows normal sinus rhythm with no interval abnormalities such as QT prolongation or WPW. There are no findings to suggest Brugada syndrome. Cardiac monitoring in the emergency department reveals no tachycardic or bradycardic dysrhythmia. Hypertrophic cardiomyopathy was considered but there are no clear historical elements pointing toward this. EKG is not suggestive. The QRS voltage is not extremely large and there are no suggestive Q waves. The labs Independently Interpreted by myself revealed leukocytosis, elevated laboratory markers Mildly elevated lactic. Negative COVID Imaging studies: CT ABDOMEN & PELVIS With Contrast: Findings compatible with a small bowel obstruction with point of transition identified in the left hemiabdomen (image 53 series 2). No evidence for perforation. Supraumbilical midline ventral abdominal wall hernia containing a nonobstructed loop of colon. The patient is status post cholecystectomy. There are degenerative changes of the thoracolumbar spine. Vertebral cement noted in the L1 vertebral body. Radiologist: Melo Rueda MD Consultation: A consultation was placed with the hospitalist. The case was discussed and diag nostics were reviewed. The patient was evaluated in the ER for further treatment. Exam and history seem consistent with bowel obstruction from Crohn's disease. Labs and advanced imaging were independently reviewed and interpreted by myself and imaging was also read by radiology. Patient was medicated as above. Advanced imaging was ordered as patient had severe tenderness on exam and there was concerns for complications from Crohn's disease. Patient agrees to treatment plan admission. Medicine was consulted and the case was discussed. Patient agrees to treatment plan of admission. By the evaluation outlined above emergent etiologies such as appendicitis, diverticulitis, PUD, biliary pathology, UTI, pancreatitis, mesenteric ischemia, aortic pathology, infections, renal colic, as well as others were deemed relatively unlikely. The pt informed about the findings as listed above. All questions were answered and pleased with the treatment. The chart was completed utilizing [employer] Speech voice recognition software. Grammatical errors, random word insertions, pronoun errors, and incomplete sentences are an occassional consequence of this system due to software li mitations, ambient noise, and hardware issues. Any formal questions or concerns about the content, text, or information contained within the body of this dictation should be directly addressed to the physician trust operations assistant for clarification. Impression & Plan SBO (small bowel obstruction), Crohn's disease Discharge Plan Visit Data Chief Complaint: Abdominal Pain Stated Complaint: abdominal pain ED Provider: Joe Johnson ED Midlevel Provider: Reina Rueda Discharge Problem: SBO (small bowel obstruction), Crohn's disease Patient Disposition: Admitted As Inpatient Condition: Good Forms Stand Alone Forms: [employer] [facility] [employer] Prescriptions Prescriptions: No Action (DME) FreeStyle [place] 14 Day [place] Misc See Rx Instructions .MEDSUPPLY Qty: 1 0RF Rx Instructions: Use to test blood glucose 4 times daily lisinopril 5 mg tablet 5 mg PO QAM Qty: 90 3RF (DME) pen needle, diabetic [BD Ultra-Fine Marsha Pen Needle] 32 gauge x 5/32" needle See Dose Instructions .ROUTE .MEDSUPPLY Qty: 500 1RF Rx Instructions: Use to inject insulin 4 times daily gabapentin 300 mg capsule 300 mg PO BID Qty: 180 1RF trazodone 100 mg tablet 100 mg PO HS Qty: 90 3RF finasteride 5 mg tablet 5 mg PO DAILY Qty: 30 2RF (DME) FreeStyle [place] 14 Day Sensor Kit See Rx Instructions .MEDSUPPLY Qty: 2 6RF Rx Instructions: Use to test blood glucose 4 times daily zolpidem 12.5 mg tablet,ext release multiphase 12.5 mg PO HS PRN (Reason: insomnia) Qty: 30 2RF vedolizumab 300 mg recon soln 300 mg IV Q8WK Qty: 1 8RF multivitamin [Daily Multi-Vitamin] tablet 1 tab PO QAM (DME) OneTouch Ultra Blue Test Strip strip See Dose Instructions .ROUTE .MEDSUPPLY Qty: 10 Rx Instructions: TWICE DAILY diphenoxylate-atropine 2.5-0.025 mg tablet 1 tab PO QID PRN (Reason: diarrhea) Qty: 360 0RF calcium carbonate-vitamin D3 [Calcium 600 + D(3)] 600 mg-10 mcg (400 unit) tablet 1 tab PO DAILY insulin aspart U-100 [Novolog U-100 Insulin aspart] 100 unit/mL solution See Rx Instructions .ROUTE .COMPLEX Qty: 10 0RF Rx Instructions: supplemental sliding scale. BSG goal range 110-140. Correction factor 12. Carb ratio - 1 unit of novolog for every 4 grams of carbohydrates consumed. insulin glargine [Basaglar KwikPen U-100 Insulin] 100 unit/mL (3 mL) insulin pen 65 unit subcut QAM 90 Days Qty: 60 1RF (DME) pen needle, diabetic [Comfort EZ Pen [place]] 31 gauge x 3/16" needle See Rx Instructions .ROUTE .MEDSUPPLY Qty: 150 3RF Rx Instructions: Use one four times daily to inject insulin (DME) CPAP Machine Misc .Route Qty: 1 0RF Rx Instructions: 9 cmH2O, current device nonfunctional, DME aero care (DME) CPAP Supplies Misc See Rx Instructions .ROUTE .MEDSUPPLY Qty: 1 0RF Rx Instructions: CPAP supplies: headgear, hose/tubing, filters, all necessary supplies duloxetine 60 mg capsule,delayed release(DR/EC) 60 mg PO QPM acetaminophen [Tylenol Extra Strength] 500 mg Tablet 1,000 mg PO BID Qty: 30 0RF Rx Instructions: OTC ezetimibe 10 mg tablet 10 mg PO DAILY Rx Instructions: TAKE 1 TABLET DAILY prednisone 10 mg tablet 15 mg PO QAM tamsulosin 0.4 mg capsule 0.4 mg PO HS Rx Instructions: Take one tablet at night time. Referrals Referrals: Micheal Hathaway III, CRNP [Primary Care Provider] -
[2022-09-21 22:35] LABS: Basophils # (auto) 0.07 K/uL (0-0.2); Basophils % (auto) 0.3 %; Eosinophils # (auto) 0.21 K/uL (0-0.50); Hematocrit (blood only) 51.6 % (42.0-52.0); Hemoglobin 17.7 g/dl (14.0-18.0); Immature Granulocytes # (auto) 0.11 K/uL (0.01-0.20); Immature Granulocytes % (auto) 0.5 %; Lymphocytes % (auto) 10.8 %; Mean Corpuscular Hemoglobin 29.3 pg (25.0-34.0); Mean Corpuscular Hgb Conc 34.3 g/dL (32.0-36.0); Mean Corpuscular Volume 85.3 fL (80.0-100.0); Mean Platelet Volume 10.5 fL (9.4-12.4); Monocytes # (auto) 1.62 K/uL (0.11-0.59); Monocytes % (auto) 7.9 %; Neutrophils # (auto) 16.24 K/uL (1.40-6.50); Neutrophils % (auto) 79.5 %; Platelet Count 295 K/uL (130-400); RDW Coefficient of Variation 13.2 % (11.5-14.5); RDW Standard Deviation 41.4 fL (36.4-46.3); Red Blood Count 6.05 M/uL (4.70-6.10); White Blood Count 20.45 K/ul (4.8-10.8)
[2022-09-21 22:50] LABS: Albumin Level 4.1 gm/dl (3.4-5.0); Bilirubin,Total 0.8 mg/dl (0.2-1.0); Calcium 9.8 mg/dl (8.5-10.1); Potassium 3.9 mmol/L (3.5-5.1)
[2022-09-21 22:56] LABS: Albumin Globulin Ratio 1.6 (0.9-2); BUN Creatinine Ratio 26.7 (10-20); C Reactive Protein 3.16 mg/dl (0-0.5); Creatinine Clr Calc Pharmacy 160.9 ml/min; Est GFR (African American) 124.9 ml/min; Est GFR (Non-African American) 107.8 ml/min; Globulin 2.5 gm/dl (2.5-4.0); Total Protein 6.6 gm/dl (6.0-8.3)
[2022-09-21 23:02] LABS: Troponin I High Sensitivity 9.6 pg/ml (0-20)
[2022-09-21] MEDS ORDERED: OPTIRAY 350 100ml IV ONE (23:30)
[2022-09-21] MEDS ORDERED: HYDROmorphone INJ 0.5 MG/0.5 ML SYR IV STA ×3 (23:48→23:56)
--- NOTE | 2022-09-22 00:38 | History & Physical Report ---
Date of Service September 22, 2022 Assessment & Plan (1) SBO (small bowel obstruction): Plan: 62-year-old male with history of Crohn's ileitis on Entyvio injections presenting with several hours of abdominal pain, nausea. Found to have small bowel obstruction, no perforation. On exam patient is afebrile, hypertensive otherwise hemodynamically stable and nontoxic in appearance. He is in significant pain in his abdomen. Labs are significant for elevated white blood cells = 20.4 with neutrophil predominance as well as mild elevation of lactate to 2.3 and elevated CRP 3.16. CT of the abdomen as above. Patient does report some increase in his Crohn's symptoms over the last week after his Entyvio authorization was delayed by insurance. Suspect SBO secondary to Crohn's. Admit to medical with telemetry Keep n.p.o. except meds IV fluid with LR at 125 mL/h x 2 L Dilaudid as needed for abdominal pain Zofran as needed for nausea Solu-Medrol 40 mg IV now and daily Check magnesium and phosphorus, electrolyte repletion as needed Consult GIassistance appreciated. Patient is known to Dr. Holm Consult general surgery. Assistance appreciated Will hold off on NG tube for now replace if patient's abdominal pain worsens or if he develops nausea (2) Crohn's disease: Plan: Patient with longstanding history of Crohn's disease for which she follows with GI. Suspect Crohn's as etiology of patient's SBO. Managed with IV steroids as above GI consultation appreciated (3) Diabetes: Plan: Patient with diabetes on insulin therapy. He reports hypoglycemia prior to arrival with a blood sugar 46. Upon arrival to the ER his blood sugar was in the 80s. Home regimen consists of insulin glargine 65 units daily as well as insulin sliding scale We will administer Lantus 15 units twice daily with insulin sliding scale Goal blood sugar 110-140 May need glycemic management consult pending blood sugar response to steroids Patient remains n.p.o. (4) HTN (hypertension): Plan: Elevated blood pressure, presently 175/90 Pain control with Dilaudid as needed Continue lisinopril 5 mg p.o. every afternoon Continue to monitor (5) BPH loc w urin obs/LUTS: Plan: No urine output since being in the ER. Nursing scanned mL of urine present however, difficult scan due to body habitus and distended abdomen. We will place Batista catheter, routine care every shift Continue tamsulosin and finasteride Monitor urine output (6) Sleep apnea: Plan: Chronic. 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 He follows with rheumatology regularly and is on chronic steroids, prednisone 50 mg p.o. daily. He is wheelchair-bound as well secondary to progression of disease Treating with Solu-Medrol IV as above (8) HLD (hyperlipidemia): Plan: Chronic. Stable. Continue Zetia F/E/NLR 125 mL x 2 L, electrolytes within normal limitschecking magnesium and phosphorus, replete as needed. N.p.o. 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 Patient presents today with acute onset of lower abdominal pain that began around 18:00. His pain is fairly severe, lower abdominal associate with abdominal bloating and nausea. His last bowel movement was 09/21/2022 around 14:30 which he reports to be small and hard. He has not been passing flatus. Patient has longstanding history of Crohn's ileitis for which she follows with GI. Last seen on 09/17/2022. Per review of that note, authorization for patient Entyvio was delayed therefore, he did not receive his injection on time. He has noted progressive abdominal pain as well as loose stools with some blood streaks over the last week. Patient has had SBO in the past secondary to his Crohn's. His last episode was approximately 6 to 7 years ago. He did have abdominal surgery in 2000 for an SBO. In the ER, patient is afebrile, hypertensive otherwise hemodynamically stable. In significant discomfort. He was administered IV morphine which resulted in nausea and was given several doses of IV Dilaudid. His pain is persistent ER course: Normal saline x1 L Morphine 4 mg IV Zofran 4 mg IV Dilaudid 0.5 mg IV x2 doses Allergies Allergy/AdvReac Type Severity Reaction Status Date / Time mercaptopurine AdvReac Severe JAUNDICE Verified 09/17/22 15:17 Home Medications Medication Instructions Recorded Confirmed Type multivitamin (Daily Multi-Vitamin 1 tab PO QAM 03/04/19 09/21/22 History tablet) blood sugar diagnostic (OneTouch #10 ea 04/01/19 09/17/22 History Ultra Blue Test Strip) diphenoxylate-atropine 2.5 1 tab PO QID PRN diarrhea #360 tabs 07/20/19 09/21/22 Rx mg-0.025 mg tablet CPAP Supplies #1 ea 10/08/19 09/17/22 Rx duloxetine 60 mg capsule,delayed 60 mg PO QPM 03/01/20 09/21/22 History release flash glucose scanning reader #1 ea 06/21/20 09/17/22 Rx (Bestowed [place] 14 Day [place]) lisinopril 5 mg tablet 5 mg PO QAM #90 tabs 11/06/21 09/21/22 Rx pen needle, diabetic 32 gauge x #500 ea 03/12/22 09/17/22 Rx 5/32" (BD Ultra-Fine Marsha Pen Needle) gabapentin 300 mg capsule 300 mg PO BID #180 caps 03/15/22 09/21/22 Rx ezetimibe 10 mg tablet 10 mg PO DAILY 04/28/22 09/21/22 History acetaminophen 500 mg tablet 1,000 mg PO BID #30 tabs 05/09/22 09/21/22 Rx (Tylenol Extra Strength) trazodone 100 mg tablet 100 mg PO HS #90 tabs 05/23/22 09/21/22 Rx insulin aspart U-100 100 unit/mL See Rx Instructions .Route 07/10/22 09/21/22 Rx subcutaneous solution (Novolog .COMPLEX #10 mL U-100 Insulin aspart) insulin glargine 100 unit/mL (3 65 unit (0.65 mL) subcut QAM 90 07/10/22 09/21/22 Rx mL) subcutaneous pen (Basaglar days #60 mL KwikPen U-100 Insulin) pen needle, diabetic 31 gauge x #150 ea 07/10/22 09/17/22 Rx 3/16" (Comfort EZ Pen [place]) finasteride 5 mg tablet 5 mg PO DAILY #30 tabs 07/31/22 09/21/22 Rx CPAP Machine #1 ea 08/02/22 09/17/22 Rx flash glucose sensor (FreeStyle #2 ea 08/07/22 09/17/22 Rx [place] 14 Day Sensor kit) zolpidem 12.5 mg tablet,extended 12.5 mg PO HS PRN insomnia #30 tabs 09/05/22 09/21/22 Rx release,multiphase calcium carbonate 600 mg-vitamin 1 tab PO DAILY 09/17/22 09/21/22 History D3 10 mcg (400 unit) tablet (Calcium 600 + D(3)) prednisone 10 mg tablet 15 mg PO QAM 09/21/22 09/21/22 History tamsulosin 0.4 mg capsule 0.4 mg PO HS 09/21/22 09/21/22 History vedolizumab 300 mg intravenous 300 mg IV Q8WK #1 ea 09/21/22 09/21/22 Rx solution Past Med/Surg History Medical History (Updated 09/22/22 @ 00:50 by Beth Figueroa DO) Burst fracture of lumbar vertebra Chronic back pain Chronic steroid use Crohn's disease (~08/2021) Diverticulosis Dysfunction of right eustachian tube Elevated hemoglobin A1c Fall in home History of intestinal obstruction History of migraine HLD (hyperlipidemia) HTN (hypertension) Hypercholesterolemia Hypertension Inclusion body myositis Follows with [facility] Rheumatology Insomnia Mixed conductive and sensorineural hearing loss of right ear with restricted hearing of left ear Neuropathy Osteoarthritis Polymyositis-dermatomyositis Sleep apnea CPAP Statin myopathy Type 1 diabetes mellitus on insulin therapy Urinary retention Wheelchair bound Surgical History History of biopsy muscle History of cholecystectomy History of colonoscopy History of esophagogastroduodenoscopy (EGD) History of incision and drainage (2016) I&D of sebaceous cyst right upper back History of intestinal surgery History of surgery (2017) epidermal cyst excision History of wisdom tooth extraction Family History Unknown Breast cancer Father Diabetes Father Hearing loss Stroke Mother Hypertension Cancer Heart disease Other Allergies No family history of adverse response to anesthesia No family history of bleeding disorder Denies family history of Ovarian cancer Prostate cancer Myocardial infarction Colorectal cancer Social History Smoking Status: Former smoker Tobacco Type: Cigarettes Age Started Using Tobacco: 14; Age Quit Using Tobacco: 17; Second Hand Exposure: No; Hx Alcohol Use: No Hx Substance Use: No Preferred Language: Iranian Communication Ability: Effective Visual Impairment: No Limitations Hearing Ability: Normal Contract Officer Required: No Beliefs That Will Affect Care: None marital status: Current Living Situation: Spouse current occupational status: employed current occupation: security How many Children do You have: 2 Feels Safe at Home: Yes Childhood Exposure to Second-Hand Smoke: Yes Diet Comment: regular caffeine: Yes during the past year weight has: remained stable Dental Care, Regularly: Yes Physical Activity Frequency: Does not Exercise Seatbelt Use: always Sunscreen Use: Yes Assistive Devices: Cane, Stair Lift, Walker and Wheelchair Review of Systems Review of Systems: All systems reviewed & are unremarkable except as noted in HPI & below Physical Exam Physical Exam: General: patient resting comfortably, NAD, non-toxic in appearance, AA&O x 4 Skin: warm, dry, intact, skin changes, redness present on bilateral lower extremities HEENT: NC/AT, PERRL, EOMI, anicteric sclera, conjunctiva without injection, external ear normal to inspection and nontender, nares patent, dry mucus membranes, dentition intact, no oropharyngeal lesions, neck supple, trachea midline, no LAD, no thyromegaly, no JVD Heart: +S1/S2, regular, no m/r/g Lungs: equal air entry bilaterally, no rales/rhonchi/wheezes Abd: + Bowel sounds, diminished, abdomen is soft mildly distended and tender to palpation mostly in the lower quadrants, no rebound or peritonitis Ext: warm, 2+ pulses in UE/LE bilaterally, no edema bilateral lower extremities Neuro: Patient with active functional decline, has minimal mobility in his bilateral lower extremities, wheelchair-bound Results & Data Results & Data ([place]) Vital Signs (Past 12 Hours) Vital Signs Temp Pulse Resp BP Pulse Ox O2 Del Method 09/21/22 22:13 36.5 C 84 22 175/90 H 99 Room Air Laboratory Results Laboratory Results WBC 20.45 K/ul (4.8-10.8) H 09/21/22 22:20 RBC 6.05 M/uL (4.70-6.10) 09/21/22 22:20 Hgb 17.7 g/dl (14.0-18.0) 09/21/22 22:20 Hct 51.6 % (42.0-52.0) 09/21/22 22:20 MCV 85.3 fL (80.0-100.0) 09/21/22 22:20 MCH 29.3 pg (25.0-34.0) 09/21/22 22:20 MCHC 34.3 g/dL (32.0-36.0) 09/21/22 22:20 RDW Std Deviation 41.4 fL (36.4-46.3) 09/21/22 22: RDW Coeff of Amy 13.2 % (11.5-14.5) 09/21/22 22:20 Plt Count 295 K/uL (130-400) 09/21/22 22:20 MPV 10.5 fL (9.4-12.4) 09/21/22 22:20 Immature Gran % (Auto) 0.5 % 09/21/22 22:20 Neut % (Auto) 79.5 % 09/21/22 22:20 Lymph % (Auto) 10.8 % 09/21/22 22:20 Forrest % (Auto) 7.9 % 09/21/22 22:20 Eos % (Auto) 1.0 % 09/21/22 22:20 Baso % (Auto) 0.3 % 09/21/22 22:20 Neut # (Auto) 16.24 K/uL (1.40-6.50) H 09/21/22 22:20 Lymph # (Auto) 2.20 K/uL (1.2-3.4) 09/21/22 22:20 Forrest # (Auto) 1.62 K/uL (0.11-0.59) H 09/21/22 22:20 Eos # (Auto) 0.21 K/uL (0-0.50) 09/21/22 22:20 Baso # (Auto) 0.07 K/uL (0-0.2) 09/21/22 22:20 Immature Gran # (Auto) 0.11 K/uL (0.01-0.20) 09/21/22 22:20 ESR 17 mm/hr (0-20) 09/21/22 22:20 Sodium 141 mmol/L (136-145) 09/21/22 22:20 Potassium 3.9 mmol/L (3.5-5.1) 09/21/22 22:20 Chloride 102 mmol/L (98-107) 09/21/22 22:20 Carbon Dioxide 29 mmol/L (21-32) 09/21/22 22:20 Anion Gap 10 (3-11) 09/21/22 22:20 BUN 16 mg/dl (6-23) 09/21/22 22:20 Creatinine 0.60 mg/dl (0.6-1.4) 09/21/22 22:20 Est Cr Clr Drug Dosing 160.9 ml/min 09/21/22 22:20 Est GFR ( Amer) 124.9 ml/min 09/21/22 22:20 Est GFR (Non-Af Amer) 107.8 ml/min 09/21/22 22:20 BUN/Creatinine Ratio 26.7 (10-20) H 09/21/22 22:20 Glucose 86 mg/dl (70-99(Fasting)) 09/21/22 22:20 POC Glucose 81 mg/dl (70-99) 09/21/22 22:35 Lactate 2.3 mmol/L (0.4-2.0) H* 09/21/22 22:20 Calcium 9.8 mg/dl (8.5-10.1) 09/21/22 22:20 Total Bilirubin 0.8 mg/dl (0.2-1.0) 09/21/22 22:20 AST 30 U/L (13-39) 09/21/22 22:20 ALT 46 U/L (7-52) 09/21/22 22:20 Alkaline Phosphatase 83 U/L (34-104) 09/21/22 22:20 Troponin I High Sens 9.6 pg/ml (0-20) 09/21/22 22:20 C-Reactive Protein 3.16 mg/dl (0-0.5) H 09/21/22 22:20 Total Protein 6.6 gm/dl (6.0-8.3) 01/27/23 22:20 Albumin 4.1 gm/dl (3.4-5.0) 09/21/22 22:20 Globulin 2.5 gm/dl (2.5-4.0) 09/21/22 22:20 Albumin/Globulin Ratio 1.6 (0.9-2) 09/21/22 22:20 Lipase 3 U/L (11-82) L 09/21/22 22:20 SARS-CoV-2, RNA, NAAT NEGATIVE (NEGATIVE) 09/21/22 22:[address] of the abdomen pelvis with contrast: Stat radfinding compatible with a small bowel obstruction with point of transition identified in the left hemiabdomen please image 53 series 2). No evidence of perforation. Supraumbilical midline ventral abdominal wall hernia containing a nonobstructed loop of colon. The patient is status post cholecystectomy. There are degenerative changes in thoracolumbar spine. Vertebral cement noted in the L1 vertebral body. Code Status & VTE Plan VTE Prophylaxis Plan VTE Prophylaxis will be ordered: Yes PG Care Time/CCT Total # of Minutes Spent Total Time Spent with Patient: Total time spent is greater than 50% in coordination of care (as documented) at patient's floor/unit and/or counseling patient: Coding Level of Care Code 09143 INT INP/OBS CARE 3/75MIN Diagnoses SBO (small bowel obstruction) K56.609 Crohn's disease K50.90 Diabetes E11.9 HTN (hypertension) I10 BPH loc w urin obs/LUTS N40.1 Sleep apnea G47.30 Inclusion body myositis G72.41 HLD (hyperlipidemia) E78.5
[2022-09-22 01:26] LABS: Appearance Urine Clear (Clear); Bilirubin Urine Negative (Negative); Blood Urine Negative (Negative); Color Urine Yellow; Glucose Urine UA Negative (Negative); Ketones Urine 2+ (Negative); Leukocyte Esterase Urine Negative (Negative); Nitrite Urine Negative (Negative); Protein Urine Negative (Negative); Specific Gravity Urine 1.045 (1.000-1.030); Urobilinogen Urine Negative (Negative); pH Urine 7.5 (4.5-7.5)
[2022-09-22] MEDS ORDERED: ONDANSETRON INJ 2 MG/ML 2 ML VIAL IV PRN (01:53)
[2022-09-22] MEDS ORDERED: GLUCOSE 10 TAB/TUBE PO PRN (01:53)
[2022-09-22] MEDS ORDERED: GLUCAGON FOR INJ 1 MG VIAL SQ PRN (01:53)
[2022-09-22] MEDS ORDERED: GLUCOSE 40% GEL 15 GM TUBE PO PRN (01:53)
[2022-09-22] MEDS ORDERED: HYDROmorphone INJ 0.5 MG/0.5 ML SYR IV PRN ×2 (01:53)
[2022-09-22] MEDS ORDERED: DEXTROSE 50% 50 ML SYRINGE IV PRN (01:53)
[2022-09-22] MEDS ORDERED: CARBOHYDRATES FOR HYPOGLYCEMIA PO PRN (01:53)
[2022-09-22] MEDS: LACTATED RINGER'S 1,000 ML IV SCH ×2 (02:14→10:07)
[2022-09-22] MEDS ORDERED: methylPREDNISolone 40 MG in SYRINGE 0 ML IV ONE (02:15)
[2022-09-22 06:13] LABS: Magnesium 1.8 mg/dl (1.7-2.4)
[2022-09-22 06:19] LABS: Phosphorus 3.5 mg/dl (2.5-4.9)
[2022-09-22] MEDS: INSULIN ASPART PER UNIT SC SCH ×4 (06:19→21:06)
[2022-09-22] MEDS: ENOXAPARIN INJ 40 MG/0.4 ML SYR SQ SCH (06:19)
--- NOTE | 2022-09-22 07:13 | Electrocardiogram Report ---
Test Reason : Blood Pressure : / mmHG Vent. Rate : 084 BPM Atrial Rate : 084 BPM P-R Int : 148 ms QRS Dur : 092 ms QT Int : 380 ms P-R-T Axes : 029 006 038 degrees QTc Int : 449 ms Poor data quality, interpretation may be adversely affected Normal sinus rhythm Normal ECG When compared with ECG of 04-MAY-2022 08:20, No significant change was found Confirmed by Matthias Rea ([id number]) on 09/22/2022 7:12:41 AM Referred By: REFERRED SELF Confirmed By:Agapito Rea
[2022-09-22] MEDS ORDERED: INSULIN ASPART PER UNIT SC SCH (07:30)
[2022-09-22] MEDS: GABAPENTIN 300 MG CAP PO SCH ×2 (08:04→20:58)
[2022-09-22] MEDS: FINASTERIDE 5 MG TAB PO SCH (08:04)
[2022-09-22] MEDS: lisinopril 5 MG TAB PO SCH (08:04)
[2022-09-22] MEDS: EZETIMIBE 10 MG TABLET PO SCH (08:04)
--- NOTE | 2022-09-22 08:42 | CT Scan Report ---
ABDOMEN AND PELVIS CT WITH IV CONTRAST CT DOSE: 1257.59 mGy.cm HISTORY: Nausea. severe abdominal pain, crohn disease TECHNIQUE: Multiaxial CT images of the abdomen and pelvis were performed following the use of intrave nous contrast. A dose lowering technique was utilized adhering to the principles of ALARA. COMPARISON STUDY: Abdomen and pelvis CT 11/07/2015. FINDINGS: Moderate compression deformity with a vertebroplasty at L1. Bibasilar linear densities cons istent with subsegmental atelectasis. No pneumoperitoneum. No pneumatosis. Healing right posterior 12 th rib fracture and healing right L1 and L2 transverse process fractures. A few ventral hernias are a gain noted. One of which contains a knuckle of the transverse colon. These remain unchanged. Cholecys tectomy. The liver, pancreas, spleen, and adrenal glands unremarkable. There is a 4 mm stone within t he left kidney. No ureteral stones. No hydronephrosis. There is a small hypodense lesion within the r ight kidney which favors a cyst. The main portal vein is patent. No retroperitoneal lymphadenopathy. Normal caliber abdominal aorta. No pelvic free fluid. The bladder is unremarkable. Colonic diverticul osis. No evidence for acute diverticulitis. Normal appendix. A few scattered areas of mild bowel wall thickening likely corresponds the patient's history of Crohn's disease. The thickened loop of small bowel within the left side the abdomen on images 287 through 318 also demonstrates focal narrowing an d is the transition point for the small bowel obstruction. The loops of bowel proximal to this transi tion point are distended and fluid-filled measuring up to 4.9 cm in diameter. Overall, this is simila r to the 2016 examination. There is trace mesenteric fluid noted. IMPRESSION: 1. Small bowel obstruction with the transition point identified within the left side of the abdomen s econdary to a thickened loop of small bowel. This likely corresponds to the patient's known history o f Crohn's disease given a few additional scattered loops of thickened small bowel. Overall, this is n ot significantly changed compared to the 2016 examination. 2. Cholecystectomy. 3. Left-sided nephrolithiasis. No hydronephrosis. 4. Healing right posterior 12th rib fracture. Healing right L1 and L2 transverse process fractures. 5. Additional findings as described above. ACT 112: Negative or not required by law. Electronically signed by: Luis Alfredo Lopez M.D. 09/22/2022 8:41 AM
--- NOTE | 2022-09-22 09:29 | Surgery Consultation ---
Date of Consultation September 22, 2022 Assessment & Plan (1) SBO (small bowel obstruction): Likely secondary to Crohn's disease. No indication for surgical intervention at this point. Agree with treatment of Crohn's as per GI recommendations. Keep npo until return of bowel function. Hopefully can avoid ng tube as he is improving already. If worsens, we discussed ng tube placement. (2) Crohn's disease: Management as per GI. History of Present Illness Reason for Consultation: small bowel obstruction Requesting Physician: Jasen Mccloud MD Attending Physician: Jasen Mccloud MD History of Present Illness 62 yr old man with diagnosis of Crohn's disease for many years, typically involving more of his upper intestinal tract. Has been well maintained on Entyvio but due to insurance issues, had a delay in obtaining the drug. Developed sharp stabbing, intense abdominal pain associated with nausea. Generalized throughout abdomen, no radiation, no relieving or exacerbating factors. No vomiting. Has a history of bowel obstructions so recognized the symptoms and presented to ER. CT scan confirmed SBO, no perforation, transition point seen in left mid abdomen. Started on IV steroids. Now feeling better. Pain has improved. Nausea improved. Passed a small amount of flatus but no bowel movement yet. Had undergone a stricturoplasty with Dr. Alejandro in 2000 - states about 14 areas on his intestine needed to be repaired. No resection of any bowel that he recalls. Has had intermittent SBO episodes since then (one every few years). These typically resolve nonoperatively. Allergies Allergy/AdvReac Type Severity Reaction Status Date / Time mercaptopurine AdvReac Severe JAUNDICE Verified 09/17/22 15:17 Home Medications Medication Instructions Recorded Confirmed Type multivitamin (Daily Multi-Vitamin 1 tab PO QAM 03/04/19 09/21/22 History tablet) blood sugar diagnostic (OneTouch #10 ea 04/01/19 09/17/22 History Ultra Blue Test Strip) diphenoxylate-atropine 2.5 1 tab PO QID PRN diarrhea #360 tabs 07/20/19 09/21/22 Rx mg-0.025 mg tablet CPAP Supplies #1 ea 10/08/19 09/17/22 Rx duloxetine 60 mg capsule,delayed 60 mg PO QPM 03/01/20 09/21/22 History release flash glucose scanning reader #1 ea 06/21/20 09/17/22 Rx (FreeStyle [place] 14 Day [place]) lisinopril 5 mg tablet 5 mg PO QAM #90 tabs 11/06/21 09/21/22 Rx pen needle, diabetic 32 gauge x #500 ea 03/12/22 09/17/22 Rx 5/32" (BD Ultra-Fine [place]ha Pen Needle) gabapentin 300 mg capsule 300 mg PO BID #180 caps 03/15/22 09/21/22 Rx ezetimibe 10 mg tablet 10 mg PO DAILY 04/28/22 09/21/22 History acetaminophen 500 mg tablet 1,000 mg PO BID #30 tabs 05/09/22 09/21/22 Rx (Tylenol Extra Strength) trazodone 100 mg tablet 100 mg PO HS #90 tabs 05/23/22 09/21/22 Rx insulin aspart U-100 100 unit/mL See Rx Instructions .Route 07/10/22 09/21/22 Rx subcutaneous solution (Novolog .COMPLEX #10 mL U-100 Insulin aspart) insulin glargine 100 unit/mL (3 65 unit (0.65 mL) subcut QAM 90 07/10/22 09/21/22 Rx mL) subcutaneous pen (Basaglar days #60 mL KwikPen U-100 Insulin) pen needle, diabetic 31 gauge x #150 ea 07/10/22 09/17/22 Rx 3/16" (Comfort EZ Pen [place]) finasteride 5 mg tablet 5 mg PO DAILY #30 tabs 07/31/22 09/21/22 Rx CPAP Machine #1 ea 08/02/22 09/17/22 Rx flash glucose sensor (FreeStyle #2 ea 08/07/22 09/17/22 Rx [place] 14 Day Sensor kit) zolpidem 12.5 mg tablet,extended 12.5 mg PO HS PRN insomnia #30 tabs 09/05/22 09/21/22 Rx release,multiphase calcium carbonate 600 mg-vitamin 1 tab PO DAILY 09/17/22 09/21/22 History D3 10 mcg (400 unit) tablet (Calcium 600 + D(3)) prednisone 10 mg tablet 15 mg PO QAM 09/21/22 09/21/22 History tamsulosin 0.4 mg capsule 0.4 mg PO HS 09/21/22 09/21/22 History vedolizumab 300 mg intravenous 300 mg IV Q8WK #1 ea 09/21/22 09/21/22 Rx solution Patient History Medical History Burst fracture of lumbar vertebra Chronic back pain Chronic steroid use Crohn's disease (~08/2021) Diverticulosis Dysfunction of right eustachian tube Elevated hemoglobin A1c Fall in home History of intestinal obstruction History of migraine HLD (hyperlipidemia) HTN (hypertension) Hypercholesterolemia Hypertension Inclusion body myositis Follows with [facility] Rheumatology Insomnia Mixed conductive and sensorineural hearing loss of right ear with restricted hearing of left ear Neuropathy Osteoarthritis Polymyositis-dermatomyositis Sleep apnea CPAP Statin myopathy Type 1 diabetes mellitus on insulin therapy Urinary retention Wheelchair bound Surgical History History of biopsy muscle History of cholecystectomy History of colonoscopy History of esophagogastroduodenoscopy (EGD) History of incision and drainage (2016) I&D of sebaceous cyst right upper back History of intestinal surgery History of surgery (2016) epidermal cyst excision History of wisdom tooth extraction Family History Unknown Breast cancer Father Diabetes Father Hearing loss Stroke Mother Hypertension Cancer Heart disease Other Allergies No family history of adverse response to anesthesia No family history of bleeding disorder Denies family history of Ovarian cancer Prostate cancer Myocardial infarction Colorectal cancer Social History Smoking Status: Former smoker Tobacco Type: Cigarettes Age Started Using Tobacco: 14; Age Quit Using Tobacco: 17; Second Hand Exposure: No; Do You Dip or Chew Tobacco: No; Hx Alcohol Use: No Hx Substance Use: No Preferred Language: Marshallese Communication Ability: Effective Visual Impairment: No Limitations Hearing Ability: Normal Scheduling Representative Required: No Beliefs That Will Affect Care: None marital status: Current Living Situation: Spouse current occupational status: employed current occupation: security How many Children do You have: 2 Other Information That Helps Us Care for You: No Feels Safe at Home: Yes Safety Concerns: Feels Safe At This Time Childhood Exposure to Second-Hand Smoke: Yes Diet Comment: regular caffeine: Yes during the past year weight has: remained stable Dental Care, Regularly: Yes Physical Activity Frequency: Does not Exercise Seatbelt Use: always Sunscreen Use: Yes Assistive Devices: Glasses Review of Systems Review of Systems: All systems reviewed & are unremarkable except as noted in HPI & below Physical Exam Constitutional: WD/WN, vitals as above Eyes: PERRL, conjunctivae normal, anicteric sclerae Neck: normal visual inspection and trachea midline Respiratory: normal respiratory effort, lungs clear to auscultation Cardiovascular: RRR, no murmur, no edema Gastrointestinal (Abdomen): Inspection/Auscultation: abdomen normal to inspection, + abdomen distended (mild), + abdominal surgical scar (midline) and + hypoactive bowel sounds; no visible herniation Percussion/Palpation: abdomen soft; abdomen nontender and no guarding Musculoskeletal: Extremities: extremities normal to inspection Neurologic: awake; no focal motor deficits Psychiatric: A+Ox3, euthymic affect Results & Data ([facility]) Vital Signs (Past 12 Hours) Vital Signs Temp Pulse Pulse Pulse Resp BP BP 09/22/22 07:30 96 H 09/22/22 07:30 09/22/22 07:25 36.6 C 94 H 16 129/76 09/22/22 02:42 99 H 09/22/22 03:03 37.3 C 95 H 20 137/71 09/22/22 01:55 09/22/22 02:33 94 H 20 09/22/22 01:57 36.8 C 94 H 22 163/83 H 09/22/22 01:37 09/22/22 01:07 92 H 18 09/22/22 01:07 132/79 09/21/22 23:44 164/99 H 09/21/22 23:44 82 26 H 09/21/22 23:30 81 22 09/22/22 01:17 93 H 20 09/21/22 22:13 36.5 C 84 22 175/90 H Pulse Ox O2 Del Method 09/22/22 07:30 09/22/22 07:30 Room Air 09/22/22 07:25 94 Room Air 09/22/22 02:42 09/22/22 03:03 94 CPAP 09/22/22 01:55 Room Air 09/22/22 02:33 98 09/22/22 01:57 98 Room Air 09/22/22 01:37 Room Air 01/28/23 01:07 98 Room Air 09/22/22 01:07 09/21/22 23:44 09/21/22 23:44 09/21/22 23:30 99 Room Air 09/22/22 01:17 94 Room Air 09/21/22 22:13 99 Room Air Laboratory Results 09/22/22 09/22/22 09/22/22 Range/Units 05:56 05:36 05:36 WBC (4.8-10.8) K/ul RBC (4.70-6.10) M/uL Hgb (14.0-18.0) g/dl Hct (42.0-52.0) % MCV (80.0-100.0) fL MCH (25.0-34.0) pg MCHC (32.0-36.0) g/dL RDW Std Deviation (36.4-46.3) fL RDW Coeff of Amy (11.5-14.5) % Plt Count (130-400) K/uL MPV (9.4-12.4) fL Immature Gran % (Auto) % Neut % (Auto) % Lymph % (Auto) % [place] % (Auto) % Eos % (Auto) % Baso % (Auto) % Neut # (Auto) (1.40-6.50) K/uL Lymph # (Auto) (1.2-3.4) K/uL [place] # (Auto) (0.11-0.59) K/uL Eos # (Auto) (0-0.50) K/uL Baso # (Auto) (0-0.2) K/uL Immature Gran # (Auto) (0.01-0.20) K/uL ESR (0-20) mm/hr Sodium (136-145) mmol/L Potassium (3.5-5.1) mmol/L Chloride (98-107) mmol/L Carbon Dioxide (21-32) mmol/L Anion Gap (3-11) BUN (6-23) mg/dl Creatinine (0.6-1.4) mg/dl Est Cr Clr Drug Dosing ml/min Est GFR ( Amer) ml/min Est GFR (Non-Af Amer) ml/min BUN/Creatinine Ratio (10-20) Glucose (70-99(Fasting)) mg/dl POC Glucose 233 H (70-99) mg/dl Lactate 1.1 (0.4-2.0) mmol/L Calcium (8.5-10.1) mg/dl Phosphorus 3.5 (2.5-4.9) mg/dl Magnesium 1.8 (1.7-2.4) mg/dl Total Bilirubin (0.2-1.0) mg/dl AST (13-39) U/L ALT (7-52) U/L Alkaline Phosphatase (34-104) U/L Troponin I High Sens (0-20) pg/ml C-Reactive Protein (0-0.5) mg/dl Total Protein (6.0-8.3) gm/dl Albumin (3.4-5.0) gm/dl Globulin (2.5-4.0) gm/dl Albumin/Globulin Ratio (0.9-2) Lipase (11-82) U/L Urine Color Urine Appearance (Clear) Urine pH (4.5-7.5) Ur Specific [place] (1.000-1.030) Urine Protein (Negative) Urine Glucose (UA) (Negative) Urine Ketones (Negative) Urine Blood (Negative) Urine Nitrite (Negative) Urine Bilirubin (Negative) Urine Urobilinogen (Negative) Ur Leukocyte Esterase (Negative) SARS-CoV-2, RNA, NAAT (NEGATIVE) 09/22/22 09/22/22 09/21/22 Range/Units 02:14 01:12 22:40 WBC (4.8-10.8) K/ul RBC (4.70-6.10) M/uL Hgb (14.0-18.0) g/dl Hct (42.0-52.0) % MCV (80.0-100.0) fL MCH (25.0-34.0) pg MCHC (32.0-36.0) g/dL RDW Std Deviation (36.4-46.3) fL RDW Coeff of Amy (11.5-14.5) % Plt Count (130-400) K/uL MPV (9.4-12.4) fL Immature Gran % (Auto) % Neut % (Auto) % Lymph % (Auto) % [place] % (Auto) % Eos % (Auto) % Baso % (Auto) % Neut # (Auto) (1.40-6.50) K/uL Lymph # (Auto) (1.2-3.4) K/uL [place] # (Auto) (0.11-0.59) K/uL Eos # (Auto) (0-0.50) K/uL Baso # (Auto) (0-0.2) K/uL Immature Gran # (Auto) (0.01-0.20) K/uL ESR (0-20) mm/hr Sodium (136-145) mmol/L Potassium (3.5-5.1) mmol/L Chloride (98-107) mmol/L Carbon Dioxide (21-32) mmol/L Anion Gap (3-11) BUN (6-23) mg/dl Creatinine (0.6-1.4) mg/dl Est Cr Clr Drug Dosing ml/min Est GFR ( Amer) ml/min Est GFR (Non-Af Amer) ml/min BUN/Creatinine Ratio (10-20) Glucose (70-99(Fasting)) mg/dl POC Glucose 117 H (70-99) mg/dl Lactate (0.4-2.0) mmol/L Calcium (8.5-10.1) mg/dl Phosphorus (2.5-4.9) mg/dl Magnesium (1.7-2.4) mg/dl Total Bilirubin (0.2-1.0) mg/dl AST (13-39) U/L ALT (7-52) U/L Alkaline Phosphatase (34-104) U/L Troponin I High Sens (0-20) pg/ml C-Reactive Protein (0-0.5) mg/dl Total Protein (6.0-8.3) gm/dl Albumin (3.4-5.0) gm/dl Globulin (2.5-4.0) gm/dl Albumin/Globulin Ratio (0.9-2) Lipase (11-82) U/L Urine Color Yellow Urine Appearance Clear (Clear) Urine pH 7.5 (4.5-7.5) Ur Specific [place] 1.045 H (1.000-1.030) Urine Protein Negative (Negative) Urine Glucose (UA) Negative (Negative) Urine Ketones 2+ H (Negative) Urine Blood Negative (Negative) Urine Nitrite Negative (Negative) Urine Bilirubin Negative (Negative) Urine Urobilinogen Negative (Negative) Ur Leukocyte Esterase Negative (Negative) SARS-CoV-2, RNA, NAAT NEGATIVE (NEGATIVE) 09/21/22 09/21/22 09/21/22 Range/Units 22:35 22:20 22:20 WBC (4.8-10.8) K/ul RBC (4.70-6.10) M/uL Hgb (14.0-18.0) g/dl Hct (42.0-52.0) % MCV (80.0-100.0) fL MCH (25.0-34.0) pg MCHC (32.0-36.0) g/dL RDW Std Deviation (36.4-46.3) fL RDW Coeff of Amy (11.5-14.5) % Plt Count (130-400) K/uL MPV (9.4-12.4) fL Immature Gran % (Auto) % Neut % (Auto) % Lymph % (Auto) % [place] % (Auto) % Eos % (Auto) % Baso % (Auto) % Neut # (Auto) (1.40-6.50) K/uL Lymph # (Auto) (1.2-3.4) K/uL [place] # (Auto) (0.11-0.59) K/uL Eos # (Auto) (0-0.50) K/uL Baso # (Auto) (0-0.2) K/uL Immature Gran # (Auto) (0.01-0.20) K/uL ESR (0-20) mm/hr Sodium 141 (136-145) mmol/L Potassium 3.9 (3.5-5.1) mmol/L Chloride 102 (98-107) mmol/L Carbon Dioxide 29 (21-32) mmol/L Anion Gap 10 (3-11) BUN 16 (6-23) mg/dl Creatinine 0.60 (0.6-1.4) mg/dl Est Cr Clr Drug Dosing 160.9 ml/min Est GFR ( Amer) 124.9 ml/min Est GFR (Non-Af Amer) 107.8 ml/min BUN/Creatinine Ratio 26.7 H (10-20) Glucose 86 (70-99(Fasting)) mg/dl POC Glucose 81 (70-99) mg/dl Lactate 2.3 H* (0.4-2.0) mmol/L Calcium 9.8 (8.5-10.1) mg/dl Phosphorus (2.5-4.9) mg/dl Magnesium (1.7-2.4) mg/dl Total Bilirubin 0.8 (0.2-1.0) mg/dl AST 30 (13-39) U/L ALT 46 (7-52) U/L Alkaline Phosphatase 83 (34-104) U/L Troponin I High Sens 9.6 (0-20) pg/ml C-Reactive Protein 3.16 H (0-0.5) mg/dl Total Protein 6.6 (6.0-8.3) gm/dl Albumin 4.1 (3.4-5.0) gm/dl Globulin 2.5 (2.5-4.0) gm/dl Albumin/Globulin Ratio 1.6 (0.9-2) Lipase 3 L (11-82) U/L Urine Color Urine Appearance (Clear) Urine pH (4.5-7.5) Ur Specific [place] (1.000-1.030) Urine Protein (Negative) Urine Glucose (UA) (Negative) Urine Ketones (Negative) Urine Blood (Negative) Urine Nitrite (Negative) Urine Bilirubin (Negative) Urine Urobilinogen (Negative) Ur Leukocyte Esterase (Negative) SARS-CoV-2, RNA, NAAT (NEGATIVE) 09/21/22 09/21/22 Range/Units 22:20 22:20 WBC 20.45 H (4.8-10.8) K/ul RBC 6.05 (4.70-6.10) M/uL Hgb 17.7 (14.0-18.0) g/dl Hct 51.6 (42.0-52.0) % MCV 85.3 (80.0-100.0) fL MCH 29.3 (25.0-34.0) pg MCHC 34.3 (32.0-36.0) g/dL RDW Std Deviation 41.4 (36.4-46.3) fL RDW Coeff of Amy 13.2 (11.5-14.5) % Plt Count 295 (130-400) K/uL MPV 10.5 (9.4-12.4) fL Immature Gran % (Auto) 0.5 % Neut % (Auto) 79.5 % Lymph % (Auto) 10.8 % [place] % (Auto) 7.9 % Eos % (Auto) 1.0 % Baso % (Auto) 0.3 % Neut # (Auto) 16.24 H (1.40-6.50) K/uL Lymph # (Auto) 2.20 (1.2-3.4) K/uL [place] # (Auto) 1.62 H (0.11-0.59) K/uL Eos # (Auto) 0.21 (0-0.50) K/uL Baso # (Auto) 0.07 (0-0.2) K/uL Immature Gran # (Auto) 0.11 (0.01-0.20) K/uL ESR 17 (0-20) mm/hr Sodium (136-145) mmol/L Potassium (3.5-5.1) mmol/L Chloride (98-107) mmol/L Carbon Dioxide (21-32) mmol/L Anion Gap (3-11) BUN (6-23) mg/dl Creatinine (0.6-1.4) mg/dl Est Cr Clr Drug Dosing ml/min Est GFR ( Amer) ml/min Est GFR (Non-Af Amer) ml/min BUN/Creatinine Ratio (10-20) Glucose (70-99(Fasting)) mg/dl POC Glucose (70-99) mg/dl Lactate (0.4-2.0) mmol/L Calcium (8.5-10.1) mg/dl Phosphorus (2.5-4.9) mg/dl Magnesium (1.7-2.4) mg/dl Total Bilirubin (0.2-1.0) mg/dl AST (13-39) U/L ALT (7-52) U/L Alkaline Phosphatase (34-104) U/L Troponin I High Sens (0-20) pg/ml C-Reactive Protein (0-0.5) mg/dl Total Protein (6.0-8.3) gm/dl Albumin (3.4-5.0) gm/dl Globulin (2.5-4.0) gm/dl Albumin/Globulin Ratio (0.9-2) Lipase (11-82) U/L Urine Color Urine Appearance (Clear) Urine pH (4.5-7.5) Ur Specific [place] (1.000-1.030) Urine Protein (Negative) Urine Glucose (UA) (Negative) Urine Ketones (Negative) Urine Blood (Negative) Urine Nitrite (Negative) Urine Bilirubin (Negative) Urine Urobilinogen (Negative) Ur Leukocyte Esterase (Negative) SARS-CoV-2, RNA, NAAT (NEGATIVE) Diagnostic Findings ABDOMEN AND PELVIS CT WITH IV CONTRAST CT DOSE: 1257.59 mGy.cm HISTORY: Nausea. severe abdominal pain, crohn disease TECHNIQUE: Multiaxial CT images of the abdomen and pelvis were performed following the use of intravenous contrast. A dose lowering technique was utilized adhering to the principles of ALARA. COMPARISON STUDY: Abdomen and pelvis CT 11/07/2015. FINDINGS: Moderate compression deformity with a vertebroplasty at L1. Bibasilar linear densities consistent with subsegmental atelectasis. No pneumoperitoneum. No pneumatosis. Healing right posterior 12th rib fracture and healing right L1 and L2 transverse process fractures. A few ventral hernias are again noted. One of which contains a knuckle of the transverse colon. These remain unchanged. Cholecystectomy. The liver, pancreas, spleen, and adrenal glands unremarkable. There is a 4 mm stone within the left kidney. No ureteral stones. No hydronephrosis. There is a small hypodense lesion within the right kidney which favors a cyst. The main portal vein is patent. No retroperitoneal lymphadenopathy. Normal caliber abdominal aorta. No pelvic free fluid. The bladder is unremarkable. Colonic diverticulosis. No evidence for acute diverti culitis. Normal appendix. A few scattered areas of mild bowel wall thickening likely corresponds the patient's history of Crohn's disease. The thickened loop of small bowel within the left side the abdomen on images 287 through 318 also demonstrates focal narrowing and is the transition point for the small bowel obstruction. The loops of bowel proximal to this transition point are distended and fluid-filled measuring up to 4.9 cm in diameter. Overall, this is similar to the 2016 examination. There is trace mesenteric fluid noted. IMPRESSION: 1. Small bowel obstruction with the transition point identified within the left side of the abdomen secondary to a thickened loop of small bowel. This likely corresponds to the patient's known history of Crohn's disease given a few additional scattered loops of thickened small bowel. Overall, this is not significantly changed compared to the 2016 examination. 2. Cholecystectomy. 3. Left-sided nephrolithiasis. No hydronephrosis. 4. Healing right posterior 12th rib fracture. Healing right L1 and L2 transverse process fractures. 5. Additional findings as described above.
[2022-09-22] MEDS: LANTUS PER UNIT CHARGE SQ SCH ×2 (09:49→21:06)
--- NOTE | 2022-09-22 14:20 | Gastrointestinal Consultation ---
Date of Consultation September 22, 2022 Assessment & Plan (1) SBO (small bowel obstruction): (2) Crohn's disease: Feeling much better today Continue Solumedrol 40 mg IV daily Recommend advancing to clear liquids as tolerated I will check with my office on Saturday to arrange for Entyvio infusion MEG, and check trough and Ab levels of Entyvio prior to infusion. Continue current therapy and supportive care. History of Present Illness Reason for Consultation: SBO, Crohn's ileitis Attending Physician: Jasen Mccloud MD History of Present Illness Edmundo Rodrigues is a 62 yo CM with a significant PMHx of Inclusion body myositis, history of multiple SBO's and Crohn's ileitis. He had been doing well regarding his Crohn's disease, however, he has not received his scheduled infusion of Entyvio that was due in early August due to insurance problems. He was seen by ADRIÁN Chow as an outpatient last week, and was having some symptoms at that time. He presented to the ER last night with severe abdominal pain and associated with nausea, and upon arrival underwent a CT scan which showed a transition point in the left mid-abdomen. He was subsequently admitted and started on solumedrol IV, and has had an improvement in his symptoms. He has passed gas this AM, but has not had a BM at present. At the time I saw him, he was resting in bed, and states, "I am feeling much better." He does still have mild abdominal pain rated at 2/10 in intensity, non-radiating, without alleviating or exacerbating factors. He denies any fevers, chils, nausea, vomiting, hematemesis, melena, or hematochezia. He has not had a BM as of this time. He states that his Entyvio was approved, and they are sending it to [facility], where he receives his infusions. He has no further complaints. Allergies Allergy/AdvReac Type Severity Reaction Status Date / Time mercaptopurine AdvReac Severe JAUNDICE Verified 09/17/22 15:17 Home Medications Medication Instructions Recorded Confirmed Type multivitamin (Daily Multi-Vitamin 1 tab PO QAM 03/04/19 09/21/22 History tablet) blood sugar diagnostic (OneTouch #10 ea 04/01/19 09/17/22 History Ultra Blue Test Strip) diphenoxylate-atropine 2.5 1 tab PO QID PRN diarrhea #360 tabs 07/20/19 09/21/22 Rx mg-0.025 mg tablet CPAP Supplies #1 ea 10/08/19 09/17/22 Rx duloxetine 60 mg capsule,delayed 60 mg PO QPM 03/01/20 09/21/22 History release flash glucose scanning reader #1 ea 06/21/20 09/17/22 Rx (FreeStyle [place] 14 Day [place]) lisinopril 5 mg tablet 5 mg PO QAM #90 tabs 11/06/21 09/21/22 Rx pen needle, diabetic 32 gauge x #500 ea 03/12/22 09/17/22 Rx 5/32" (BD Ultra-Fine [place]ha Pen Needle) gabapentin 300 mg capsule 300 mg PO BID #180 caps 03/15/22 09/21/22 Rx ezetimibe 10 mg tablet 10 mg PO DAILY 04/28/22 09/21/22 History acetaminophen 500 mg tablet 1,000 mg PO BID #30 tabs 05/09/22 09/21/22 Rx (Tylenol Extra Strength) trazodone 100 mg tablet 100 mg PO HS #90 tabs 05/23/22 09/21/22 Rx insulin aspart U-100 100 unit/mL See Rx Instructions .Route 07/10/22 09/21/22 Rx subcutaneous solution (Novolog .COMPLEX #10 mL U-100 Insulin aspart) insulin glargine 100 unit/mL (3 65 unit (0.65 mL) subcut QAM 90 07/10/22 09/21/22 Rx mL) subcutaneous pen (Basaglar days #60 mL KwikPen U-100 Insulin) pen needle, diabetic 31 gauge x #150 ea 07/10/22 09/17/22 Rx 3/16" (Comfort EZ Pen [place]) finasteride 5 mg tablet 5 mg PO DAILY #30 tabs 07/31/22 09/21/22 Rx CPAP Machine #1 ea 08/02/22 09/17/22 Rx flash glucose sensor (FreeStyle #2 ea 08/07/22 09/17/22 Rx [place] 14 Day Sensor kit) zolpidem 12.5 mg tablet,extended 12.5 mg PO HS PRN insomnia #30 tabs 09/05/22 09/21/22 Rx release,multiphase calcium carbonate 600 mg-vitamin 1 tab PO DAILY 09/17/22 09/21/22 History D3 10 mcg (400 unit) tablet (Calcium 600 + D(3)) prednisone 10 mg tablet 15 mg PO QAM 09/21/22 09/21/22 History tamsulosin 0.4 mg capsule 0.4 mg PO HS 09/21/22 09/21/22 History vedolizumab 300 mg intravenous 300 mg IV Q8WK #1 ea 09/21/22 09/21/22 Rx solution Patient History Medical History Burst fracture of lumbar vertebra Chronic back pain Chronic steroid use Crohn's disease (~08/2021) Diverticulosis Dysfunction of right eustachian tube Elevated hemoglobin A1c Fall in home History of intestinal obstruction History of migraine HLD (hyperlipidemia) HTN (hypertension) Hypercholesterolemia Hypertension Inclusion body myositis Follows with [facility] Rheumatology Insomnia Mixed conductive and sensorineural hearing loss of right ear with restricted hearing of left ear Neuropathy Osteoarthritis Polymyositis-dermatomyositis Sleep apnea CPAP Statin myopathy Type 1 diabetes mellitus on insulin therapy Urinary retention Wheelchair bound Surgical History History of biopsy muscle History of cholecystectomy History of colonoscopy History of esophagogastroduodenoscopy (EGD) History of incision and drainage (2016) I&D of sebaceous cyst right upper back History of intestinal surgery History of surgery (2017) epidermal cyst excision History of wisdom tooth extraction Family History Unknown Breast cancer Father Diabetes Father Hearing loss Stroke Mother Hypertension Cancer Heart disease Other Allergies No family history of adverse response to anesthesia No family history of bleeding disorder Denies family history of Ovarian cancer Prostate cancer Myocardial infarction Colorectal cancer Social History Smoking Status: Former smoker Tobacco Type: Cigarettes Age Started Using Tobacco: 14; Age Quit Using Tobacco: 17; Second Hand Exposure: No; Do You Dip or Chew Tobacco: No; Hx Alcohol Use: No Hx Substance Use: No Preferred Language: Maldivian Communication Ability: Effective Visual Impairment: No Limitations Hearing Ability: Normal Supervisor Telephone Information Required: No Beliefs That Will Affect Care: None marital status: Current Living Situation: Spouse current occupational status: employed current occupation: security How many Children do You have: 2 Other Information That Helps Us Care for You: No Feels Safe at Home: Yes Safety Concerns: Feels Safe At This Time Childhood Exposure to Second-Hand Smoke: Yes Diet Comment: regular caffeine: Yes during the past year weight has: remained stable Dental Care, Regularly: Yes Physical Activity Frequency: Does not Exercise Seatbelt Use: always Sunscreen Use: Yes Assistive Devices: Glasses Review of Systems Review of Systems: All systems reviewed & are unremarkable except as noted in Subjective Physical Exam Constitutional: WD/WN, vitals as above + ill appearing (chronic) and + obese Eyes: + anicteric sclerae Neck: trachea midline, no thyromegaly Respiratory: normal respiratory effort, lungs clear to auscultation Cardiovascular: RRR, no murmur, no edema Gastrointestinal (Abdomen): normal bowel sounds, soft, nontender, no hepatosplenomegaly Skin: no rashes, warm and dry Psychiatric: A+Ox3, euthymic affect Results & Data ([facility]) Vital Signs (Past 12 Hours) Vital Signs Temp Pulse Pulse Pulse Resp BP Pulse Ox 09/22/22 11:29 36.8 C 86 18 137/79 97 09/22/22 07:30 96 H 09/22/22 07:30 09/22/22 07:25 36.6 C 94 H 16 129/76 94 09/22/22 02:42 99 H 09/22/22 03:03 37.3 C 95 H 20 137/71 94 09/22/22 02:33 94 H 20 98 O2 Del Method 09/22/22 11:29 Room Air 09/22/22 07:30 09/22/22 07:30 Room Air 09/22/22 07:25 Room Air 09/22/22 02:42 09/22/22 03:03 CPAP 09/22/22 02:33 PG Care Time/CCT Total # of Minutes Spent Total Time Spent with Patient: Total time spent is greater than 50% in coordination of care (as documented) at patient's floor/unit and/or counseling patient: Coding Level of Care Code 47288 INT INP/OBS CARE 3/75MIN Diagnoses SBO (small bowel obstruction) K56.609 Crohn's disease K50.90
[2022-09-22] MEDS: TAMSULOSIN HCL 0.4 MG CAP PO SCH (20:57)
[2022-09-22] MEDS: traZODone HCL 100 MG TAB PO SCH (20:57)
[2022-09-22] MEDS: DULoxetine HCL 60 MG CAP PO SCH (20:58)
[2022-09-22] MEDS ORDERED: BENZONATATE 100 MG CAPSULE PO ONE (21:02)
[2022-09-22] MEDS: FLUTICASONE PROPIONATE NA SPR 16 GM BTL SCH (21:40)
[2022-09-22] MEDS: ZOLPIDEM TARTRATE 10 MG TAB PO PRN (21:41)
[2022-09-23] MEDS: ENOXAPARIN INJ 40 MG/0.4 ML SYR SQ SCH (06:47)
[2022-09-23] MEDS: lisinopril 5 MG TAB PO SCH (08:06)
[2022-09-23] MEDS: EZETIMIBE 10 MG TABLET PO SCH (08:06)
[2022-09-23] MEDS: FLUTICASONE PROPIONATE NA SPR 16 GM BTL SCH ×2 (08:06→21:16)
[2022-09-23] MEDS: GABAPENTIN 300 MG CAP PO SCH ×2 (08:06→21:17)
[2022-09-23] MEDS: FINASTERIDE 5 MG TAB PO SCH (08:06)
[2022-09-23 08:07] LABS: Anion Gap 4 (3-11); Calcium 8.2 mg/dl (8.5-10.1); Carbon Dioxide 29 mmol/L (21-32); Chloride 107 mmol/L (98-107); Potassium 3.7 mmol/L (3.5-5.1); Sodium 140 mmol/L (136-145)
[2022-09-23 08:13] LABS: Blood Urea Nitrogen 9 mg/dl (6-23); Creatinine Clr Calc Pharmacy 312.4 ml/min; Est GFR (African American) > 150.0 ml/min; Est GFR (Non-African American) 141.4 ml/min; Glucose 173 mg/dl (70-99(Fasting)); Hematocrit (blood only) 41.5 % (42.0-52.0); Mean Corpuscular Hemoglobin 29.1 pg (25.0-34.0); Mean Corpuscular Hgb Conc 33.7 g/dL (32.0-36.0); Mean Corpuscular Volume 86.3 fL (80.0-100.0); Mean Platelet Volume 10.1 fL (9.4-12.4); Platelet Count 232 K/uL (130-400); RDW Coefficient of Variation 13.1 % (11.5-14.5); RDW Standard Deviation 41.1 fL (36.4-46.3); Red Blood Count 4.81 M/uL (4.70-6.10); White Blood Count 8.01 K/ul (4.8-10.8)
[2022-09-23] MEDS: INSULIN ASPART PER UNIT SC SCH ×4 (08:16→21:27)
[2022-09-23] MEDS: LANTUS PER UNIT CHARGE SQ SCH ×2 (08:16→21:26)
[2022-09-23] MEDS ORDERED: methylPREDNISolone 40 MG in SYRINGE 0 ML IV SCH (09:00)
--- NOTE | 2022-09-23 12:28 | Surgery Progress Note ---
Date of Service September 23, 2022 Assessment & Plan (1) SBO (small bowel obstruction): Plan: Likely secondary to Crohn's disease. No indication for surgical intervention at this point. Agree with treatment of Crohn's as per GI recommendations. Seems to be improving. Tolerating clears. Abdomen still is distended so would go slowly with advancement of diet. (2) Crohn's disease: Plan: Management as per GI. Admission and Anticipated Discharge Date Admission Date: September 22, 2022 Subjective Tolerating liquids. Passing flatus but no bowel movement yet. Less pain, no nausea. Physical Exam Constitutional: WD/WN, vitals as above Eyes: PERRL, conjunctivae normal, anicteric sclerae Respiratory: normal respiratory effort, lungs clear to auscultation Cardiovascular: RRR, no murmur, no edema Gastrointestinal (Abdomen): Inspection/Auscultation: abdomen normal to inspection, + abdomen distended (moderate), + abdominal surgical scar (midline) and + hyperactive bowel sounds; no visible herniation Percussion/Palpation: abdomen soft; abdomen nontender and no guarding Musculoskeletal: Extremities: extremities normal to inspection Neurologic: awake; no focal motor deficits Psychiatric: A+Ox3, euthymic affect Results & Data ([facility]) Vital Signs (Past 12 Hours) Vital Signs Temp Pulse Pulse Pulse Resp BP Pulse Ox 09/23/22 11:36 36.7 C 77 18 104/69 92 09/23/22 07:45 77 09/23/22 07:27 36.6 C 79 16 127/73 94 09/23/22 03:26 36.8 C 74 18 122/73 99 O2 Del Method 09/23/22 11:36 Room Air 09/23/22 07:45 09/23/22 07:27 Room Air 09/23/22 03:26 Nasal Cannula Laboratory Results 09/23/22 09/23/22 09/23/22 Range/Units 11:20 07:34 07:34 WBC 8.01 (4.8-10.8) K/ul RBC 4.81 (4.70-6.10) M/uL Hgb 14.0 D (14.0-18.0) g/dl Hct 41.5 L (42.0-52.0) % MCV 86.3 (80.0-100.0) fL MCH 29.1 (25.0-34.0) pg MCHC 33.7 (32.0-36.0) g/dL RDW Std Deviation 41.1 (36.4-46.3) fL RDW Coeff of Amy 13.1 (11.5-14.5) % Plt Count 232 (130-400) K/uL MPV 10.1 (9.4-12.4) fL Sodium 140 (136-145) mmol/L Potassium 3.7 (3.5-5.1) mmol/L Chloride 107 (98-107) mmol/L Carbon Dioxide 29 (21-32) mmol/L Anion Gap 4 (3-11) BUN 9 (6-23) mg/dl Creatinine 0.31 L (0.6-1.4) mg/dl Est Cr Clr Drug Dosing 312.4 ml/min Est GFR ( Amer) > 150.0 ml/min Est GFR (Non-Af Amer) 141.4 ml/min BUN/Creatinine Ratio 29.0 H (10-20) Glucose 173 H (70-99(Fasting)) mg/dl POC Glucose 245 H (70-99) mg/dl Calcium 8.2 L (8.5-10.1) mg/dl 09/23/22 09/22/22 09/22/22 Range/Units 07:24 20:10 17:54 WBC (4.8-10.8) K/ul RBC (4.70-6.10) M/uL Hgb (14.0-18.0) g/dl Hct (42.0-52.0) % MCV (80.0-100.0) fL MCH (25.0-34.0) pg MCHC (32.0-36.0) g/dL RDW Std Deviation (36.4-46.3) fL RDW Coeff of Amy (11.5-14.5) % Plt Count (130-400) K/uL MPV (9.4-12.4) fL Sodium (136-145) mmol/L Potassium (3.5-5.1) mmol/L Chloride (98-107) mmol/L Carbon Dioxide (21-32) mmol/L Anion Gap (3-11) BUN (6-23) mg/dl Creatinine (0.6-1.4) mg/dl Est Cr Clr Drug Dosing ml/min Est GFR ( Amer) ml/min Est GFR (Non-Af Amer) ml/min BUN/Creatinine Ratio (10-20) Glucose (70-99(Fasting)) mg/dl POC Glucose 158 H 226 H 228 H (70-99) mg/dl Calcium (8.5-10.1) mg/dl
--- NOTE | 2022-09-23 13:38 | Gastroenterology Progress Note ---
Date of Service September 23, 2022 Assessment & Plan (1) Inclusion body myositis: (2) Crohn's disease: (3) SBO (small bowel obstruction): Plan: Recommend Prednisone taper starting at 40 mg by mouth daily and decrease by 5 mg each week, for 8 week total taper Will need to get restarted on Entyvio MEG Continue current therapy and supportive care Appreciate Surgery input, though clearly no need for surgical intervention at present Admission and Anticipated Discharge Date Admission Date: September 22, 2022 Subjective States he is having a good bit of flatus, but no BM as of this time. Tolerating liquid diet. Pain much improved. Review of Systems Review of Systems: All systems reviewed & are unremarkable except as noted in Subjective Physical Exam Constitutional: Chronic ill appearing, NAD Gastrointestinal (Abdomen): Inspection/Auscultation: + abdomen distended Percussion/Palpation: abdomen soft; abdomen nontender, no guarding and abdomen not rigid Psychiatric: A+Ox3, euthymic affect Results & Data Results & Data ([facility]) Vital Signs (Past 12 Hours) Vital Signs Temp Pulse Pulse Pulse Resp BP Pulse Ox 09/23/22 11:36 36.7 C 77 18 104/69 92 09/23/22 07:45 77 09/23/22 07:27 36.6 C 79 16 127/73 94 09/23/22 03:26 36.8 C 74 18 122/73 99 O2 Del Method 09/23/22 11:36 Room Air 09/23/22 07:45 09/23/22 07:27 Room Air 09/23/22 03:26 Nasal Cannula PG Care Time/CCT Total # of Minutes Spent Total Time Spent with Patient: Total time spent is greater than 50% in coordination of care (as documented) at patient's floor/unit and/or counseling patient: Coding Level of Care Code 26113 SUB INP/OBS CARE 3/50MIN Diagnoses Inclusion body myositis G72.41 Crohn's disease K50.90 SBO (small bowel obstruction) K56.609
--- NOTE | 2022-09-23 17:36 | Hospitalist Progress Note ---
Date of Service September 23, 2022 Assessment & Plan (1) SBO (small bowel obstruction): Plan: Doing better today, has passing gas, no evidence of obstruction abdomen soft bowel sounds active, soft Solu-Medrol, switch to prednisone, advance diet, if the patient can tolerate diet can be discharged tomorrow no bowel movement so for Stop IV fluid, White cell count has been normalized (2) Crohn's disease: Plan: Patient with longstanding history of Crohn's disease for which she follows with GI. Suspect Crohn's as etiology of patient's SBO. Plan as mentioned above GI consultation appreciated (3) Diabetes: Plan: Hyperglycemic today, increase the dose of Lantus to 35 units twice daily, patient is 65 and at home, good oral intake, still could be contributing factor (4) HTN (hypertension): Plan: Blood pressure is controlled continue current management (5) BPH loc w urin obs/LUTS: Plan: DC Batista voiding trial (6) Sleep apnea: Plan: Chronic. 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 He follows with rheumatology regularly and is on chronic steroids, prednisone 50 mg p.o. daily. He is wheelchair-bound as well secondary to progression of disease (8) HLD (hyperlipidemia): Plan: Chronic. Stable. Continue Zetia F/E/NLR 125 mL x 2 L, electrolytes within normal limitschecking magnesium and phosphorus, replete as needed. N.p.o. ProphylaxisLovenox CodeDNR/DNI per discussion with patient Dispositionadmit to medical with telemetry Admission and Anticipated Discharge Date Admission Date: September 22, 2022 Subjective Feels better, advance diet to full liquid and he tolerated well, passing gas no bowel movement, advance to 1800 ADA diet, stop IV Solu-Medrol, start on prednisone taper from tomorrow morning, possible discharge tomorrow morning if patient can tolerate his diet and if he has bowel movement Results & Data Results & Data ([facility]) Vital Signs (Past 12 Hours) Vital Signs Temp Pulse Pulse Pulse Resp BP Pulse Ox 09/23/22 15:58 36.7 C 67 20 128/75 95 09/23/22 14:45 82 09/23/22 13:45 88 09/23/22 11:36 36.7 C 77 18 104/69 92 01/29/23 07:45 77 09/23/22 07:27 36.6 C 79 16 127/73 94 O2 Del Method 09/23/22 15:58 Room Air 09/23/22 14:45 09/23/22 13:45 09/23/22 11:36 Room Air 09/23/22 07:45 09/23/22 07:27 Room Air PG Care Time/CCT Total # of Minutes Spent Total Time Spent with Patient: Total time spent is greater than 50% in coordination of care (as documented) at patient's floor/unit and/or counseling patient: Coding Level of Care Code 10791 SUB INP/OBS CARE 3/50MIN Diagnoses SBO (small bowel obstruction) K56.609 Crohn's disease K50.90 Diabetes E11.9 HTN (hypertension) I10 BPH loc w urin obs/LUTS N40.1 Sleep apnea G47.30 Inclusion body myositis G72.41 HLD (hyperlipidemia) E78.5
[2022-09-23] MEDS: DULoxetine HCL 60 MG CAP PO SCH (21:16)
[2022-09-23] MEDS: traZODone HCL 100 MG TAB PO SCH (21:16)
[2022-09-23] MEDS: TAMSULOSIN HCL 0.4 MG CAP PO SCH (21:17)
[2022-09-23] MEDS: ZOLPIDEM TARTRATE 10 MG TAB PO PRN (21:28)
[2022-09-24] MEDS: ENOXAPARIN INJ 40 MG/0.4 ML SYR SQ SCH (05:46)
[2022-09-24] MEDS: FLUTICASONE PROPIONATE NA SPR 16 GM BTL SCH (08:51)
[2022-09-24] MEDS: EZETIMIBE 10 MG TABLET PO SCH (08:51)
[2022-09-24] MEDS: FINASTERIDE 5 MG TAB PO SCH (08:51)
[2022-09-24] MEDS: lisinopril 5 MG TAB PO SCH (08:51)
[2022-09-24] MEDS: INSULIN ASPART PER UNIT SC SCH (08:51)
[2022-09-24] MEDS: GABAPENTIN 300 MG CAP PO SCH (08:52)
[2022-09-24] MEDS: LANTUS PER UNIT CHARGE SQ SCH (08:55)
[2022-09-24] MEDS ORDERED: predniSONE 50 MG TAB PO SCH (09:00)
[2022-09-24] MEDS ORDERED: predniSONE 20 MG TAB PO SCH (09:00)
--- NOTE | 2022-09-24 10:39 | Surgery Progress Note ---
Date of Service September 24, 2022 Assessment & Plan (1) SBO (small bowel obstruction): Plan: Likely secondary to Crohn's disease. Resolving +flatus no abodminal pain or distention today tolerating reg diet No surgical indication at this time,continue medical and GI management. (2) Crohn's disease: Plan: Management as per GI. Our services singing off, please call with any questions/concerns. Discussed with DR. mesa who agrees with above. Admission and Anticipated Discharge Date Admission Date: September 22, 2022 Subjective feeling good today no abdominal pain no n,v passing flatus, no bowel movement, but passing more gas than yesterday tolerated reg diet last evening and this morning Physical Exam Constitutional: WD/WN, vitals as above + obese, cooperative and comfortable; no acute distress and not ill appearing Gastrointestinal (Abdomen): Inspection/Auscultation: abdomen normal to inspection and + abdominal surgical scar (midline laparotomy scar); abdomen not distended Percussion/Palpation: abdomen soft; abdomen nontender, no guarding and abdomen not rigid Skin: no rashes, warm and dry Psychiatric: A+Ox3, euthymic affect Results & Data ([facility]) Vital Signs (Past 12 Hours) Vital Signs Temp Pulse Pulse Resp BP BP Pulse Ox 09/24/22 10:21 36.5 C 70 16 108/63 111/67 98 09/24/22 07:58 36.5 C 70 16 111/67 98 09/24/22 07:09 67 09/24/22 03:22 36.5 C 72 18 108/63 98 09/23/22 23:43 83 O2 Del Method O2 Flow Rate 09/24/22 10:21 09/24/22 07:58 Room Air 09/24/22 07:09 09/24/22 03:22 Nasal Cannula 2 09/23/22 23:43 Laboratory Results 09/24/22 09/23/22 09/23/22 Range/Units 07:54 20:16 16:47 POC Glucose 124 H 266 H 283 H (70-99) mg/dl 09/23/22 Range/Units 11:20 POC Glucose 245 H (70-99) mg/dl
--- NOTE | 2022-09-25 18:34 | Discharge Summary ---
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 Patient presents today with acute onset of lower abdominal pain that began around 18:00. His pain is fairly severe, lower abdominal associate with abdominal bloating and nausea. His last bowel movement was 09/21/2022 around 14:30 which he reports to be small and hard. He has not been passing flatus. Patient has longstanding history of Crohn's ileitis for which she follows with GI. Last seen on 09/17/2022. Per review of that note, authorization for patient Entyvio was delayed therefore, he did not receive his injection on time. He has noted progressive abdominal pain as well as loose stools with some blood streaks over the last week. Patient has had SBO in the past secondary to his Crohn's. His last episode was approximately 6 to 7 years ago. He did have abdominal surgery in 2000 for an SBO. In the ER, patient is afebrile, hypertensive otherwise hemodynamically stable. In significant discomfort. He was administered IV morphine which resulted in nausea and was given several doses of IV Dilaudid. His pain is persistent ER course: Normal saline x1 L Morphine 4 mg IV Zofran 4 mg IV Dilaudid 0.5 mg IV x2 doses Principal Diagnosis Crohn's disease flareup Discharge Exam General: patient resting comfortably, NAD, non-toxic in appearance, AA&O x 4 Skin: warm, dry, intact, skin changes, redness present on bilateral lower extremities HEENT: NC/AT, PERRL, EOMI, anicteric sclera, conjunctiva without injection, external ear normal to inspection and nontender, nares patent, dry mucus membranes, dentition intact, no oropharyngeal lesions, neck supple, trachea midline, no LAD, no thyromegaly, no JVD Heart: +S1/S2, regular, no m/r/g Lungs: equal air entry bilaterally, no rales/rhonchi/wheezes Abd: + Bowel sounds, diminished, abdomen is soft mildly distended and tender to palpation mostly in the lower quadrants, no rebound or peritonitis Ext: warm, 2+ pulses in UE/LE bilaterally, no edema bilateral lower extremities Neuro: Patient with active functional decline, has minimal mobility in his bilateral lower extremities, wheelchair-bound Constitutional WD/WN, vitals as above + obese, cooperative and comfortable; no acute distress and not ill appearing Eyes PERRL, conjunctivae normal, anicteric sclerae + anicteric sclerae Neck trachea midline, no thyromegaly normal visual inspection and trachea midline Respiratory normal respiratory effort, lungs clear to auscultation Cardiovascular RRR, no murmur, no edema Gastrointestinal (Abdomen) normal bowel sounds, soft, nontender, no hepatosplenomegaly Inspection/Auscultation: abdomen normal to inspection, + abdominal surgical scar (midline laparotomy scar), + hyperactive bowel sounds and + hypoactive bowel sounds; abdomen not distended and no visible herniation Percussion/Palpation: abdomen soft; abdomen nontender, no guarding and abdomen not rigid Musculoskeletal Extremities: extremities normal to inspection Skin no rashes, warm and dry Neurologic awake; no focal motor deficits Psychiatric A+Ox3, euthymic affect Discharge Data Allergies Allergy/AdvReac Type Severity Reaction Status Date / Time mercaptopurine AdvReac Severe JAUNDICE Verified 09/17/22 15:17 Consultations 09/21/22 23:55 ED Decision to Admit Stat 09/22/22 01:53 Consult Gastroenterology Routine Consult General Surgery Routine Ordered Studies 09/21/22 22:14 CT abd pelvis IV con only Urgent Hospital Course (1) SBO (small bowel obstruction): Consult with surgery, initially started on bowel rest, rapidly improved within 24 hours, possibly secondary to Crohn's flareup, it is likely was ileus revealed small bowel obstruction, patient was able to tolerate oral intake, we initiated with clear liquid advance to full liquid and on regular diet patient tolerated well. Abdomen was not distended upon discharge. (2) Crohn's disease: Patient with longstanding history of Crohn's disease for which she follows with GI. Suspect Crohn's as etiology of patient's SBO. Consulted by GI, started on IV steroid, responded well, patient was discharged on tapering dose of prednisone as per GI, patient will follow up with GI on outpatient basis (3) Diabetes: Possibly steroid-induced hyperglycemia, resolved prior to discharge (4) HTN (hypertension): Blood pressure is controlled continue current management (5) BPH loc w urin obs/LUTS: DC Batista voiding trial (6) Sleep apnea: Chronic. 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 He follows with rheumatology regularly and is on chronic steroids, prednisone 50 mg p.o. daily. He is wheelchair-bound as well secondary to progression of disease (8) HLD (hyperlipidemia): Chronic. Stable. Continue Zetia F/E/NLR 125 mL x 2 L, electrolytes within normal limitschecking magnesium and phosphorus, replete as needed. N.p.o. ProphylaxisLovenox CodeDNR/DNI per discussion with patient Dispositionadmit to medical with telemetry Total Time Total Time Spent Total Time Spent (In Minutes): 45 min Discharge Plan Discharge Items Patient Disposition: Home - Self-Care Reason For Visit: SBO, H/O CROHNS DISEASE Discharge Diagnosis: Crohn Disease flare up Condition on Discharge: Good Activity: Resume your previous activity Lifting: Gradually increase as tolerated Sexual Activity: When tolerated Non-emergency contact: Primary Care Provider and Centrifugal Machine Tender Call non-emergency contact if: you have any medication questions and your symptoms worsen Follow-up/Referrals: Micheal Hathaway III, CRNP [Primary Care Provider] - 10/02/22 9:20 am Diet: Heart Healthy Popeye Attending Provider Instructions: Please start with Prednisone 40 mg daily and every week cut down 5 mg till the dose reduce to 15 mg then continue 15 daily till you see doctor Addtl Boiler Control Technician Provider Instructions: Please you are discharged on higher does of Prednisone you may need extra does of Insulin please consult your doctor if your blood sugar running consistently high Pending Studies at Discharge: No Stand-Alone Forms: My Coull, Smoking Cessation Medications and DC Order Prescriptions: Continued (DME) FreeStyle [place] 14 Day [facility] [place] See Rx Instructions .MEDSUPPLY Qty: 1 0RF Rx Instructions: Use to test blood glucose 4 times daily lisinopril 5 mg tablet 5 mg PO QAM Qty: 90 3RF (DME) pen needle, diabetic [BD Ultra-Fine Marsha Pen Needle] 32 gauge x 5/32" needle See Dose Instructions .ROUTE .MEDSUPPLY Qty: 500 1RF Rx Instructions: Use to inject insulin 4 times daily gabapentin 300 mg capsule 300 mg PO BID Qty: 180 1RF trazodone 100 mg tablet 100 mg PO HS Qty: 90 3RF finasteride 5 mg tablet 5 mg PO DAILY Qty: 30 2RF (DME) FreeStyle [place] 14 Day Sensor Kit See Rx Instructions .MEDSUPPLY Qty: 2 6RF Rx Instructions: Use to test blood glucose 4 times daily zolpidem 12.5 mg tablet,ext release multiphase 12.5 mg PO HS PRN (Reason: insomnia) Qty: 30 2RF vedolizumab 300 mg recon soln 300 mg IV Q8WK Qty: 1 8RF multivitamin [Daily Multi-Vitamin] tablet 1 tab PO QAM (DME) OneTouch Ultra Blue Test Strip strip See Dose Instructions .ROUTE .MEDSUPPLY Qty: 10 Rx Instructions: TWICE DAILY diphenoxylate-atropine 2.5-0.025 mg tablet 1 tab PO QID PRN (Reason: diarrhea) Qty: 360 0RF calcium carbonate-vitamin D3 [Calcium 600 + D(3)] 600 mg-10 mcg (400 unit) tablet 1 tab PO DAILY insulin aspart U-100 [Novolog U-100 Insulin aspart] 100 unit/mL solution See Rx Instructions .ROUTE .COMPLEX Qty: 10 0RF Rx Instructions: supplemental sliding scale. BSG goal range 110-140. Correction factor 12. Carb ratio - 1 unit of novolog for every 4 grams of carbohydrates consumed. insulin glargine [Basaglar KwikPen U-100 Insulin] 100 unit/mL (3 mL) insulin pen 65 unit subcut QAM 90 Days Qty: 60 1RF (DME) pen needle, diabetic [Comfort EZ Pen [place]] 31 gauge x 3/16" needle See Rx Instructions .ROUTE .MEDSUPPLY Qty: 150 3RF Rx Instructions: Use one four times daily to inject insulin (DME) CPAP Machine Misc .Route Qty: 1 0RF Rx Instructions: 9 cmH2O, current device nonfunctional, DME [facility]ero [facility] ([facility] [place]) CPAP Supplies Misc See Rx Instructions .ROUTE .MEDSUPPLY Qty: 1 0RF Rx Instructions: CPAP supplies: headgear, hose/tubing, filters, all necessary supplies duloxetine 60 mg capsule,delayed release(DR/EC) 60 mg PO QPM acetaminophen [Tylenol Extra Strength] 500 mg Tablet 1,000 mg PO BID Qty: 30 0RF Rx Instructions: OTC ezetimibe 10 mg tablet 10 mg PO DAILY Rx Instructions: TAKE 1 TABLET DAILY tamsulosin 0.4 mg capsule 0.4 mg PO HS Rx Instructions: Take one tablet at night time. Changed prednisone 10 mg tablet 40 mg PO QAM Qty: 20 0RF Rx Instructions: please proceed with prednisone taper as you instructed Discharge Orders: Discharge Order (Routine); Ordered 09/24/22 Ordered By: Jasen Mccloud Admission Data Admit Date/Time: 09/22/22 00:38 Attending Provider: Jasen Mccloud Admit Provider: Beth Figueroa Primary Care Provider: Micheal Hathaway III Other Providers: Beth Figueroa ; Mitul Holm ; Letitia Hinkle Other Interventions: Discharge Summary Assessment (RN) Last Done: 09/24/22 10:21 Coding Level of Care Code HOSP INP/OBS DISCH >30 MIN Diagnoses SBO (small bowel obstruction) K56.609 Crohn's disease K50.90 Diabetes E11.9 HTN (hypertension) I10 BPH loc w urin obs/LUTS N40.1 Sleep apnea G47.30 Inclusion body myositis G72.41 HLD (hyperlipidemia) E78.5
== END 2022-09-24 11:14 | disposition home or self-care (01) | DRG 386 ==
LOC: ED 22:08 → 2S 09-22 00:38 → SUATTDRO 09-22 00:38 → 2S 09-22 01:37 → 2W 09-23 13:46

== ENCOUNTER 2022-11-27 19:16 | Inpatient (IN) ==
[2022-11-27] MEDS ORDERED: SODIUM CHLORIDE 0.9% 1000ML 1,000 ML IV STA (19:26)
[2022-11-27] MEDS ORDERED: ONDANSETRON INJ 2 MG/ML 2 ML VIAL IV STA (19:26)
[2022-11-27 19:56] LABS: Basophils # (auto) 0.06 K/uL (0-0.2); Basophils % (auto) 0.4 %; Eosinophils # (auto) 0.17 K/uL (0-0.50); Hematocrit (blood only) 51.1 % (42.0-52.0); Hemoglobin 17.9 g/dl (14.0-18.0); Immature Granulocytes # (auto) 0.07 K/uL (0.01-0.20); Immature Granulocytes % (auto) 0.4 %; Lymphocytes # (auto) 0.58 K/uL (1.2-3.4); Lymphocytes % (auto) 3.4 %; Mean Corpuscular Hemoglobin 29.1 pg (25.0-34.0); Mean Corpuscular Volume 83.1 fL (80.0-100.0); Mean Platelet Volume 10.2 fL (9.4-12.4); Monocytes # (auto) 1.06 K/uL (0.11-0.59); Monocytes % (auto) 6.3 %; Neutrophils # (auto) 14.98 K/uL (1.40-6.50); Neutrophils % (auto) 88.5 %; Platelet Count 286 K/uL (130-400); RDW Coefficient of Variation 14.3 % (11.5-14.5); RDW Standard Deviation 42.6 fL (36.4-46.3); Red Blood Count 6.15 M/uL (4.70-6.10); White Blood Count 16.92 K/ul (4.8-10.8)
[2022-11-27 20:18] LABS: Alanine Aminotransferase 51 U/L (7-52); Albumin Globulin Ratio 1.7 (0.9-2); Albumin Level 3.9 gm/dl (3.4-5.0); Alkaline Phosphatase 81 U/L (34-104); Anion Gap 11 (3-11); Aspartate Aminotransferase 34 U/L (13-39); Bilirubin,Total 1.2 mg/dl (0.2-1.0); Blood Urea Nitrogen 21 mg/dl (6-23); Calcium 8.8 mg/dl (8.6-10.3); Carbon Dioxide 22 mmol/L (21-32); Chloride 102 mmol/L (98-107); Creatinine Clr Calc Pharmacy 273.1 ml/min; Est GFR (African American) > 150.0 ml/min; Est GFR (Non-African American) 134.5 ml/min; Globulin 2.3 gm/dl (2.5-4.0); Glucose 165 mg/dl (70-99(Fasting)); Lipase 102 U/L (11-82); Potassium 3.8 mmol/L (3.5-5.1); Sodium 135 mmol/L (136-145); Total Protein 6.2 gm/dl (6.0-8.3)
[2022-11-27 20:23] LABS: Troponin I High Sensitivity 12.2 pg/ml (0-20)
[2022-11-27] MEDS ORDERED: SODIUM CHLORIDE 0.9% 1000ML 1,000 ML IV ONE (20:58)
[2022-11-27] MEDS ORDERED: MoRPHine SULFATE 4 MG/ML 1 ML CARP\\VIAL IV STA ×2 (21:09→21:57)
[2022-11-27] MEDS ORDERED: OPTIRAY 350 100ml IV ONE (21:22)
--- NOTE | 2022-11-27 21:43 | CT Scan Report ---
Exam(s): CT ABDOMEN + PELVIS With Contrast IV Amt: 86ml Optiray 350 EXAM: CT Abdomen and Pelvis With Intravenous Contrast CLINICAL HISTORY: Reason for exam: abd pain, crohn's, fever. TECHNIQUE: Axial computed tomography images of the abdomen and pelvis with intravenous contrast. CTDI is 24.69 mGy and DLP is 1422.17 mGy-cm. Automated exposure control was utilized for the study. A dose lowering technique was utilized adhering to the principles of ALARA. CONTRAST: Patient received 86ml Optiray 350 of IV contrast COMPARISON: CT abdomen and pelvis 09/21/2022. FINDINGS: Lung bases: Unremarkable. No mass. No consolidation. ABDOMEN: Liver: Unremarkable. No mass. Gallbladder and bile ducts: Cholecystectomy. No ductal dilation. Pancreas: Unremarkable. No mass. No ductal dilation. Spleen: Unremarkable. No splenomegaly. Adrenals: Unremarkable. No mass. Kidneys and ureters: Subcentimeter hypodensities in the kidneys, too small to characterize. Punctate nonobstructing left renal calculus. Stomach and bowel: Fluid-filled small bowel and colon. Colonic diverticulosis without evidence of acute diverticulitis. Small ventral hernia containing the anti-mesenteric transverse colon compatible with a Martino's hernia, unchanged from prior. No obstruction. PELVIS: Appendix: No findings to suggest acute appendicitis. Bladder: Unremarkable. No mass. Reproductive: Enlarged prostate gland. ABDOMEN and PELVIS: Intraperitoneal space: Unremarkable. No free air. No significant fluid collection. Bones/joints: Compression fracture of the L1 vertebral body status post augmentation. Degenerative changes seen in the spine. No dislocation. Soft tissues: See above. Vasculature: Atherosclerotic calcifications in the abdominal aorta and branches. No abdominal aortic aneurysm. Lymph nodes: Unremarkable. No enlarged lymph nodes. IMPRESSION: 1. Fluid-filled small bowel and colon. Recommend correlation for enterocolitis. 2. Colonic diverticulosis without evidence of acute diverticulitis. 3. Small ventral hernia containing the anti-mesenteric transverse colon compatible with a Martino's hernia, unchanged from prior. No associated abnormal bowel wall thickening or fat stranding. Electronically signed by: Mitul Rome MD 11/27/22 21:43 PM
--- NOTE | 2022-11-27 22:38 | Emergency Department Note ---
Impression & Plan Colitis, Fever, Abdominal pain ED Provider Note INFORMANT: Patient ED PROVIDER(S): Joe Johnson DO CHIEF COMPLAINT: Abdominal pain PLAN: Disposition: Admission Outpatient prescription management: Discussion with:I spoke with the hospitalist, who will see the patient for admission/observation and further evaluation and consultation. MEDICAL DECISION MAKING: This is a 62-year-old male who presents to the ED with a chief complaint of abdominal pain, nausea, vomiting and diarrhea. His symptoms started around 11 AM today. He is a type I diabetic and is on immunosuppressive's and steroids chronically for his Crohn's disease. His abdominal pain is generalized but more in the upper quadrants. He reports vomiting with p.o. intake. He has had a small amount of diarrhea. The patient's abdomen is soft, somewhat bloated/distended and tender diffusely. Vital signs reveal a fever of 38.2. Other vital signs are unremarkable. White blood cell count is elevated at 16. No anemia. No significant electrolyte abnormality. CT scan of the abdomen pelvis shows anterior colitis. Other findings similar to previous CT. COVID test is pending. Chest x-ray did not show any evidence of pneumonia. Triage Nursing notes reviewed. Vital Signs: reviewed Prior /Outside records reviewed: PCP visit on 11/19/2022 reviewed Differential diagnosis: Colitis, Crohn's exacerbation, UTI, cholecystitis, appendicitis, diverticulitis, other Diagnostics, as interpreted by me: 12 lead ECG: none Cardiac Monitoring ordered: none Medical decision rules: none Imaging studies: CT scan of the abdomen pelvis: No obstruction. Chest x-ray: No acute disease. Procedures: none. Critical care: none. HPI: See MDM above. PAST MEDICAL HISTORY: See Below PAST SURGICAL HISTORY: See Below SOCIAL HISTORY: See Below HOME MEDICATIONS: See Below ALLERGIES: See Below VITALS: See Below PHYSICAL EXAMINATION: See MDM for positive findings otherwise unremarkable. CONSTITUTIONAL/VITAL SIGNS: Reviewed GENERAL:done as appropriate INTEGUMENTARY: done as appropriate HEAD: done as appropriate EYES: done as appropriate RESPIRATORY: done as appropriate CARDIOVASCULAR:done as appropriate GI/ABDOMEN:done as appropriate EXTREMITIES: done as appropriate NEUROLOGICAL: done as appropriate PSYCHIATRIC:done as appropriate MUSCULOSKELETAL:done as appropriate TRIAGE NURSING DOCUMENTATION REVIEWED. Past Med/Surg History Medical History (Updated 11/27/22 @ 22:38 by Joe Johnson DO) Burst fracture of lumbar vertebra Chronic back pain Chronic steroid use Crohn's disease (~08/2021) Diverticulosis Dysfunction of right eustachian tube Elevated hemoglobin A1c Fall in home History of intestinal obstruction History of migraine HLD (hyperlipidemia) HTN (hypertension) Hypercholesterolemia Hypertension Inclusion body myositis Follows with [facility] Rheumatology Insomnia Mixed conductive and sensorineural hearing loss of right ear with restricted hearing of left ear Neuropathy Osteoarthritis Polymyositis-dermatomyositis Sleep apnea CPAP Statin myopathy Type 1 diabetes mellitus on insulin therapy Urinary retention Wheelchair bound Surgical History History of biopsy muscle History of cholecystectomy History of colonoscopy History of esophagogastroduodenoscopy (EGD) History of incision and drainage (2017) I&D of sebaceous cyst right upper back History of intestinal surgery History of surgery (2017) epidermal cyst excision History of wisdom tooth extraction Family History Unknown Breast cancer Father Diabetes Father Hearing loss Stroke Mother Hypertension Cancer Heart disease Other Allergies No family history of adverse response to anesthesia No family history of bleeding disorder Denies family history of Ovarian cancer Prostate cancer Myocardial infarction Colorectal cancer Social History (Updated 11/19/22 @ 15:27 by VANDANA Andersen) Smoking Status: Never smoker Tobacco Type: Cigarettes Age Started Using Tobacco: 14; Age Quit Using Tobacco: 17; Second Hand Exposure: No; Hx Alcohol Use: No Hx Substance Use: No Preferred Language: Kenyan Communication Ability: Effective Visual Impairment: No Limitations Hearing Ability: Normal Sound Technician Required: No Beliefs That Will Affect Care: None marital status: Current Living Situation: Spouse current occupational status: employed current occupation: security How many Children do You have: 2 Feels Safe at Home: Yes Childhood Exposure to Second-Hand Smoke: Yes caffeine: Yes during the past year weight has: remained stable Dental Care, Regularly: Yes Physical Activity Frequency: Does not Exercise Seatbelt Use: always Sunscreen Use: Yes Assistive Devices: Glasses Allergies Allergies Allergy/AdvReac Type Severity Reaction Status Date / Time mercaptopurine AdvReac Severe JAUNDICE Verified 11/21/22 08:28 Home Meds Home Medications Medication Instructions Recorded Confirmed multivitamin (Daily Multi-Vitamin 1 tab PO QAM 03/04/19 11/21/22 tablet) blood sugar diagnostic (OneTouch #10 ea 04/01/19 11/21/22 Ultra Blue Test Strip) duloxetine 60 mg capsule,delayed 60 mg PO QPM 03/01/20 11/21/22 release ezetimibe 10 mg tablet 10 mg PO DAILY 04/28/22 11/21/22 calcium carbonate 600 mg-vitamin 1 tab PO DAILY 09/17/22 11/21/22 D3 10 mcg (400 unit) tablet (Calcium 600 + D(3)) Previous Rx's Medication Instructions Recorded diphenoxylate-atropine 2.5 1 tab PO QID PRN diarrhea #360 tabs 07/20/19 mg-0.025 mg tablet CPAP Supplies #1 ea 10/08/19 flash glucose scanning reader #1 ea 06/21/20 (FreeStyle [place] 14 Day [place]) lisinopril 5 mg tablet 5 mg PO QAM #90 tabs 11/06/21 pen needle, diabetic 32 gauge x #500 ea 03/12/22 5/32" (BD Ultra-Fine Marsha Pen Needle) gabapentin 300 mg capsule 300 mg PO BID #180 caps 03/15/22 acetaminophen 500 mg tablet 1,000 mg PO BID #30 tabs 05/09/22 (Tylenol Extra Strength) trazodone 100 mg tablet 100 mg PO HS #90 tabs 05/23/22 insulin glargine 100 unit/mL (3 65 unit (0.65 mL) subcut QAM 90 07/10/22 mL) subcutaneous pen (Basaglar days #60 mL KwikPen U-100 Insulin) pen needle, diabetic 31 gauge x #150 ea 07/10/22 3/16" (Comfort EZ Pen [place]) CPAP Machine #1 ea 08/02/22 flash glucose sensor (FreeStyle #2 ea 08/07/22 [place] 14 Day Sensor kit) prednisone 10 mg tablet 40 mg PO QAM #20 tabs 09/24/22 vedolizumab 300 mg intravenous 300 mg IV Q8WK #1 ea 10/04/22 solution finasteride 5 mg tablet 5 mg PO DAILY #30 tabs 10/08/22 tamsulosin 0.4 mg capsule 0.4 mg PO HS #30 caps 10/08/22 blood-glucose sensor (FreeStyle #1 ea 11/19/22 [place] 3 Sensor device) insulin aspart See Rx Instructions subcut DAILY 11/19/22 (niacinamide)(U-100) 100 unit/mL(3 #90 mL mL) subcutaneous pen (Fiasp FlexTouch U-100 Insulin) zolpidem 12.5 mg tablet,extended 12.5 mg PO HS PRN insomnia #90 tabs 11/19/22 release,multiphase Results & Data (ED) Vital Signs Vital Signs - 24 hr 11/27/22 19:22 11/27/22 19:22 11/27/22 19:28 Temperature 38.2 C H Temperature Source Oral Pulse Rate 109 H Pulse Rate [Apical] Respiratory Rate 23 Respiratory Effort / Characteristics Moaning Respiratory Depth Normal Blood Pressure 134/80 Blood Pressure [Right Arm] Blood Pressure Mean 98 Blood Pressure Mean [Right Arm] Pulse Oximetry 95 95 Oxygen Delivery Method Room Air Sepsis Recent Fever Within 48 Hours Yes Sepsis New/Unexplained Change in Mental Status No Sepsis Action Taken by Nursing MD Previously Notified 11/27/22 19:31 11/27/22 22:01 Temperature Temperature Source Pulse Rate 110 H Pulse Rate [Apical] 98 H Respiratory Rate 14 Respiratory Effort / Characteristics Respiratory Depth Blood Pressure Blood Pressure [Right Arm] 108/76 Blood Pressure Mean Blood Pressure Mean [Right Arm] 86 Pulse Oximetry 95 Oxygen Delivery Method Room Air Sepsis Recent Fever Within 48 Hours Sepsis New/Unexplained Change in Mental Status Sepsis Action Taken by Nursing Laboratory Data 11/27/22 19:26 11/27/22 19:26 Lab Results 11/27/22 11/27/22 11/27/22 Range/Units 19:26 19:26 19:26 WBC 16.92 H (4.8-10.8) K/ul RBC 6.15 H (4.70-6.10) M/uL Hgb 17.9 (14.0-18.0) g/dl Hct 51.1 (42.0-52.0) % MCV 83.1 (80.0-100.0) fL MCH 29.1 (25.0-34.0) pg MCHC 35.0 (32.0-36.0) g/dL RDW Std Deviation 42.6 (36.4-46.3) fL RDW Coeff of Amy 14.3 (11.5-14.5) % Plt Count 286 (130-400) K/uL MPV 10.2 (9.4-12.4) fL Immature Gran % (Auto) 0.4 % Neut % (Auto) 88.5 % Lymph % (Auto) 3.4 % [place] % (Auto) 6.3 % Eos % (Auto) 1.0 % Baso % (Auto) 0.4 % Neut # (Auto) 14.98 H (1.40-6.50) K/uL Lymph # (Auto) 0.58 L (1.2-3.4) K/uL [place] # (Auto) 1.06 H (0.11-0.59) K/uL Eos # (Auto) 0.17 (0-0.50) K/uL Baso # (Auto) 0.06 (0-0.2) K/uL Immature Gran # (Auto) 0.07 (0.01-0.20) K/uL Sodium 135 L (136-145) mmol/L Potassium 3.8 (3.5-5.1) mmol/L Chloride 102 (98-107) mmol/L Carbon Dioxide 22 (21-32) mmol/L Anion Gap 11 (3-11) BUN 21 (6-23) mg/dl Creatinine 0.35 L (0.6-1.4) mg/dl Est Cr Clr Drug Dosing 273.1 ml/min Est GFR ( Amer) > 150.0 ml/min Est GFR (Non-Af Amer) 134.5 ml/min BUN/Creatinine Ratio 60.0 H (10-20) Glucose 165 H (70-99(Fasting)) mg/dl Lactate 1.7 (0.4-2.0) mmol/L Calcium 8.8 (8.6-10.3) mg/dl Total Bilirubin 1.2 H (0.2-1.0) mg/dl AST 34 (13-39) U/L ALT 51 (7-52) U/L Alkaline Phosphatase 81 (34-104) U/L Troponin I High Sens 12.2 (0-20) pg/ml Total Protein 6.2 (6.0-8.3) gm/dl Albumin 3.9 (3.4-5.0) gm/dl Globulin 2.3 L (2.5-4.0) gm/dl Albumin/Globulin Ratio 1.7 (0.9-2) Lipase 102 H (11-82) U/L SARS-CoV-2, RNA, NAAT (NEGATIVE) 11/27/22 Range/Units 21:31 WBC (4.8-10.8) K/ul RBC (4.70-6.10) M/uL Hgb (14.0-18.0) g/dl Hct (42.0-52.0) % MCV (80.0-100.0) fL MCH (25.0-34.0) pg MCHC (32.0-36.0) g/dL RDW Std Deviation (36.4-46.3) fL RDW Coeff of Amy (11.5-14.5) % Plt Count (130-400) K/uL MPV (9.4-12.4) fL Immature Gran % (Auto) % Neut % (Auto) % Lymph % (Auto) % [place] % (Auto) % Eos % (Auto) % Baso % (Auto) % Neut # (Auto) (1.40-6.50) K/uL Lymph # (Auto) (1.2-3.4) K/uL [place] # (Auto) (0.11-0.59) K/uL Eos # (Auto) (0-0.50) K/uL Baso # (Auto) (0-0.2) K/uL Immature Gran # (Auto) (0.01-0.20) K/uL Sodium (136-145) mmol/L Potassium (3.5-5.1) mmol/L Chloride (98-107) mmol/L Carbon Dioxide (21-32) mmol/L Anion Gap (3-11) BUN (6-23) mg/dl Creatinine (0.6-1.4) mg/dl Est Cr Clr Drug Dosing ml/min Est GFR ( Amer) ml/min Est GFR (Non-Af Amer) ml/min BUN/Creatinine Ratio (10-20) Glucose (70-99(Fasting)) mg/dl Lactate (0.4-2.0) mmol/L Calcium (8.6-10.3) mg/dl Total Bilirubin (0.2-1.0) mg/dl AST (13-39) U/L ALT (7-52) U/L Alkaline Phosphatase (34-104) U/L Troponin I High Sens (0-20) pg/ml Total Protein (6.0-8.3) gm/dl Albumin (3.4-5.0) gm/dl Globulin (2.5-4.0) gm/dl Albumin/Globulin Ratio (0.9-2) Lipase (11-82) U/L SARS-CoV-2, RNA, NAAT NEGATIVE (NEGATIVE) Administered Medications Discontinued Medications Hydromorphone HCl (Hydromorphone Inj 1 Mg/Ml Syringe) 1 mg IV NOW STA Stop: 11/27/22 22:48 Last Admin: 11/27/22 23:02 Dose: 1 mg Documented By: EMMA Sodium Chloride (Nss 1000ml) 1,000 mls @ 999 mls/hr IV .Q1H1M STA Stop: 11/27/22 20:26 Last Infusion: 11/27/22 20:50 Dose: 0 mls/hr Documented By: Admin: 11/27/22 19:34 Dose: 999 mls/hr Documented By: EMMA Sodium Chloride (Nss 1000ml) 1,000 mls @ 999 mls/hr IV .Q1H1M ONE Stop: 11/27/22 21:58 Last Infusion: 11/27/22 22:43 Dose: 0 mls/hr Documented By: Admin: 11/27/22 21:14 Dose: 999 mls/hr Documented By: KAYLAN Ioversol (Optiray 350 100ml) 86 ml IV ONCE ONE Stop: 11/27/22 21:23 Last Admin: 11/27/22 21:23 Dose: 86 ml Documented By: ABHIJEET Morphine Sulfate (Morphine Sulfate 4 Mg/Ml 1 Ml Carp\\Vial) 4 mg IV NOW STA Stop: 11/27/22 21:10 Last Admin: 11/27/22 21:14 Dose: 4 mg Documented By: KAYLAN Morphine Sulfate (Morphine Sulfate 4 Mg/Ml 1 Ml Carp\\Vial) 4 mg IV NOW STA Stop: 11/27/22 21:58 Last Admin: 11/27/22 22:07 Dose: 4 mg Documented By: EMMA Ondansetron HCl (Ondansetron Inj 2 Mg/Ml 2 Ml Vial) 4 mg IV NOW STA Stop: 11/27/22 19:27 Last Admin: 11/27/22 19:34 Dose: 4 mg Documented By: EMMA Imaging Data Radiologist's Impression: Abdomen/Pelvis CT 11/27/22 20:56 Exam(s): CT ABDOMEN + PELVIS With Contrast IV Amt: 86ml Optiray 350 EXAM: CT Abdomen and Pelvis With Intravenous Contrast CLINICAL HISTORY: Reason for exam: abd pain, crohn's, fever. TECHNIQUE: Axial computed tomography images of the abdomen and pelvis with intravenous contrast. CTDI is 24.69 mGy and DLP is 1422.17 mGy-cm. Automated exposure control was utilized for the study. A dose lowering technique was utilized adhering to the principles of ALARA. CONTRAST: Patient received 86ml Optiray 350 of IV contrast COMPARISON: CT abdomen and pelvis 09/21/2022. FINDINGS: Lung bases: Unremarkable. No mass. No consolidation. ABDOMEN: Liver: Unremarkable. No mass. Gallbladder and bile ducts: Cholecystectomy. No ductal dilation. Pancreas: Unremarkable. No mass. No ductal dilation. Spleen: Unremarkable. No splenomegaly. Adrenals: Unremarkable. No mass. Kidneys and ureters: Subcentimeter hypodensities in the kidneys, too small to characterize. Punctate nonobstructing left renal calculus. Stomach and bowel: Fluid-filled small bowel and colon. Colonic diverticulosis without evidence of acute diverticulitis. Small ventral hernia containing the anti-mesenteric transverse colon compatible with a Martino's hernia, unchanged from prior. No obstruction. PELVIS: Appendix: No findings to suggest acute appendicitis. Bladder: Unremarkable. No mass. Reproductive: Enlarged prostate gland. ABDOMEN and PELVIS: Intraperitoneal space: Unremarkable. No free air. No significant fluid collection. Bones/joints: Compression fracture of the L1 vertebral body status post augmentation. Degenerative changes seen in the spine. No dislocation. Soft tissues: See above. Vasculature: Atherosclerotic calcifications in the abdominal aorta and branches. No abdominal aortic aneurysm. Lymph nodes: Unremarkable. No enlarged lymph nodes. IMPRESSION: 1. Fluid-filled small bowel and colon. Recommend correlation for enterocolitis. 2. Colonic diverticulosis without evidence of acute diverticulitis. 3. Small ventral hernia containing the anti-mesenteric transverse colon compatible with a Martino's hernia, unchanged from prior. No associated abnormal bowel wall thickening or fat stranding. Electronically signed by: Mitul Rome MD 11/27/22 21:43 PM Chest X-Ray 11/27/22 22:16 SINGLE VIEW CHEST CLINICAL HISTORY: Generalized abdominal pain. FINDINGS: An AP, portable, upright chest radiograph is compared to study dated 05/24/2022. The examination is degraded by portable technique and apical lordotic positioning. The heart is top normal for projection. There is bibasilar scarring/atelectasis. No airspace consolidation or large pleural effusion is identified. No pneumothorax is seen. The bony thorax is grossly intact. IMPRESSION: No active disease in the chest. ACT 112: Negative or not required by law. Electronically signed by: Carlo Zarate M.D. 11/27/2022 10:42 PM Discharge Plan Visit Data Chief Complaint: GI Assessment Stated Complaint: N/V/D ED Provider: Joe Johnson Discharge Problem: Colitis, Fever, Abdominal pain Forms Stand Alone Forms: [employer] Prescriptions Prescriptions: No Action (DME) FreeStyle [place] 14 Day [place] Mis See Rx Instructions .MEDSUPPLY Qty: 1 0RF Rx Instructions: Use to test blood glucose 4 times daily lisinopril 5 mg tablet 5 mg PO QAM Qty: 90 3RF (DME) pen needle, diabetic [BD Ultra-Fine Marsha Pen Needle] 32 gauge x 5/32" needle See Dose Instructions .ROUTE .MEDSUPPLY Qty: 500 1RF Rx Instructions: Use to inject insulin 4 times daily gabapentin 300 mg capsule 300 mg PO BID Qty: 180 1RF trazodone 100 mg tablet 100 mg PO HS Qty: 90 3RF (DME) FreeStyle [place] 14 Day Sensor Kit See Rx Instructions .MEDSUPPLY Qty: 2 6RF Rx Instructions: Use to test blood glucose 4 times daily vedolizumab 300 mg recon soln 300 mg IV Q8WK Qty: 1 8RF multivitamin [Daily Multi-Vitamin] tablet 1 tab PO QAM (DME) OneTouch Ultra Blue Test Strip strip See Dose Instructions .ROUTE .MEDSUPPLY Qty: 10 Rx Instructions: TWICE DAILY diphenoxylate-atropine 2.5-0.025 mg tablet 1 tab PO QID PRN (Reason: diarrhea) Qty: 360 0RF calcium carbonate-vitamin D3 [Calcium 600 + D(3)] 600 mg-10 mcg (400 unit) tablet 1 tab PO DAILY insulin glargine [Basaglar KwikPen U-100 Insulin] 100 unit/mL (3 mL) insulin pen 65 unit subcut QAM 90 Days Qty: 60 1RF (DME) pen needle, diabetic [Comfort EZ Pen [place]] 31 gauge x 3/16" needle See Rx Instructions .ROUTE .MEDSUPPLY Qty: 150 3RF Rx Instructions: Use one four times daily to inject insulin (DME) CPAP Machine Misc .Route Qty: 1 0RF Rx Instructions: 9 cmH2O, current device nonfunctional, DME aero care tamsulosin 0.4 mg capsule 0.4 mg PO HS Qty: 30 12RF Rx Instructions: Take one tablet at night time. finasteride 5 mg tablet 5 mg PO DAILY Qty: 30 12RF (DME) CPAP Supplies Misc See Rx Instructions .ROUTE .MEDSUPPLY Qty: 1 0RF Rx Instructions: CPAP supplies: headgear, hose/tubing, filters, all necessary supplies duloxetine 60 mg capsule,delayed release(DR/EC) 60 mg PO QPM (DME) FreeStyle [place] 3 Sensor Device See Rx Instructions .Route Qty: 1 5RF Rx Instructions: use to test blood glucose 3 times daily and as needed zolpidem 12.5 mg tablet,ext release multiphase 12.5 mg PO HS PRN (Reason: insomnia) Qty: 90 0RF Fiasp FlexTouch U-100 Insulin 100 unit/mL (3 mL) insulin pen See Rx Instructions subcut DAILY Qty: 90 3RF Rx Instructions: 38 units in AM, 34 units at lunch, 38 units at dinner/supper subcutaneously daily; acetaminophen [Tylenol Extra Strength] 500 mg Tablet 1,000 mg PO BID Qty: 30 0RF Rx Instructions: OTC ezetimibe 10 mg tablet 10 mg PO DAILY Rx Instructions: TAKE 1 TABLET DAILY prednisone 10 mg tablet 40 mg PO QAM Qty: 20 0RF Rx Instructions: please proceed with prednisone taper as you instructed Referrals Referrals: Micheal Hathaway III, CRNP [Primary Care Provider] -
--- NOTE | 2022-11-27 22:43 | XRay Report ---
SINGLE VIEW CHEST CLINICAL HISTORY: Generalized abdominal pain. FINDINGS: An AP, portable, upright chest radiograph is compared to study dated 05/24/2022. The examina tion is degraded by portable technique and apical lordotic positioning. The heart is top normal for p rojection. There is bibasilar scarring/atelectasis. No airspace consolidation or large pleural effusi on is identified. No pneumothorax is seen. The bony thorax is grossly intact. IMPRESSION: No active disease in the chest. ACT 112: Negative or not required by law. Electronically signed by: Carlo Zarate M.D. 11/27/2022 10:42 PM
[2022-11-27] MEDS ORDERED: HYDROmorphone INJ 1 MG/ML SYRINGE IV STA (22:47)
--- NOTE | 2022-11-27 23:01 | History & Physical Report ---
Date of Service November 27, 2022 Assessment & Plan (1) Abdominal pain: Plan: 62yo male with history of Crohn's disease on Entyvio infusions presenting with acute onset diffuse abdominal pain, nausea, vomiting and diarrhea. In the ER he is febrile to 38.2, HD stable and non-toxic in appearance. His abdomen is mildly distended and diffusely tender, non-acute however. Workup significant for leukocytosis with WBC=16.92, mild elevation of Iirqbq=439 and CRP=2.47. Lactate is within normal range. CT of the abdomen suggestive of enterocolitis. Ddx to include flare of Crohn's disease, infectious enterocolitis vs early bowel obstruction. -Admit to medical -Check Stool GI PCR and C.diff -Keep NPO -Dilaudid PRN pain -Zofran PRN nausea -IVF with LR at 125mL/hr x 2L -Check KUB in AM (2) Diabetes: Plan: Patient with overall poorly controlled Type I DM. He is on chronic steroids which contributes to his hyperglycemia. Last HgbA1C = 7.6 on 10/11/22. Patient is on 65u Glargine and Aspart with meals at home. He follows with Endocrine - last seen 10/11/22. 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 He is on chronic steroids and MTX as well. He follows with Rheumatology - last seen 11/07/22. -Continue Prednisone 15mg po daily -Continue Cymbalta 60mg po qPM (4) HTN (hypertension): Plan: Chronic. Blood pressure stable. -Continue Lisinopril -Continue to monitor (5) HLD (hyperlipidemia): Plan: Chronic. Patient with history of statin-induced myositis -Continue Zetia (6) Sleep apnea: Plan: Chronic -Continue CPAP qHS 9cmH20 (7) Crohn's disease: Plan: Chronic. Possible acute flare as etiology of patient's current abdominal symptoms. Awaiting stool PCR, C.diff and repeat KUB ordered for AM -Continue home Prednisone 15mg po daily for now -Dilaudid PRN pain (8) BPH loc w urin obs/LUTS: Plan: Chronic. -Continue Finasteride -Continue Flomax -Monitor UOP F/E/N- LR at 125mL/hr x 2L, monitor electrolytes, NPO for now Ppx - Lovenox Code - Full per discussion with patient Dispo -Admit to medical History of Present Illness Chief Complaint: Abdominal pain, nausea, vomiting Primary Care Provider: Micheal Hathaway, III, ADRIÁN Edmundo Rodrigues is a pleasant 62yo male with history of Crohn's disease, HTN, HLP, DM and inclusion body myositis on chronic prednisone presenting with acute onset abdominal pain, nausea and vomiting. Patient reports that his Crohn's disease is overall well controlled. He was on Entyvio which was temporarily delayed secondary to recent changes with his insurance. He has since resumed Entyvio. Next dose is due in 2 days. He is then planning to change his in infusions to every 6 weeks. At approximately 11:00 this morning the patient developed diffuse severe abdominal pain as well as nausea with nonbloody/nonbilious vomiting and dry heaves. He also had multiple episodes of watery diarrhea. He feels that his abdomen is distended and diffusely tender. Febrile in the ER but otherwise denies fever and chills. He does have some left-sided chest pain at present. He reports he is not passing flatus. No additional complaints at this time In the ER patient is febrile, otherwise HD stable. NAD ER course: Morphine Zofran Normal saline x2 L Allergies Allergy/AdvReac Type Severity Reaction Status Date / Time mercaptopurine AdvReac Severe JAUNDICE Verified 11/27/22 23:10 Home Medications Medication Instructions Recorded Confirmed Type multivitamin (Daily Multi-Vitamin 1 tab PO QAM 03/04/19 11/27/22 History tablet) blood sugar diagnostic (OneTouch #10 ea 04/01/19 11/21/22 History Ultra Blue Test Strip) diphenoxylate-atropine 2.5 1 tab PO QID PRN diarrhea #360 tabs 07/20/19 11/27/22 Rx mg-0.025 mg tablet CPAP Supplies #1 ea 10/08/19 11/21/22 Rx duloxetine 60 mg capsule,delayed 60 mg PO QPM 03/01/20 11/27/22 History release flash glucose scanning reader #1 ea 06/21/20 11/21/22 Rx (FreeStyle [place] 14 Day [place]) lisinopril 5 mg tablet 5 mg PO QAM #90 tabs 11/06/21 11/27/22 Rx pen needle, diabetic 32 gauge x #500 ea 03/12/22 11/21/22 Rx 5/32" (BD Ultra-Fine [place]ha Pen Needle) gabapentin 300 mg capsule 300 mg PO BID #180 caps 03/15/22 11/27/22 Rx ezetimibe 10 mg tablet 10 mg PO DAILY 04/28/22 11/27/22 History acetaminophen 500 mg tablet 1,000 mg PO BID #30 tabs 05/09/22 11/27/22 Rx (Tylenol Extra Strength) trazodone 100 mg tablet 100 mg PO HS #90 tabs 05/23/22 11/27/22 Rx insulin glargine 100 unit/mL (3 65 unit (0.65 mL) subcut QAM 90 07/10/22 11/27/22 Rx mL) subcutaneous pen (Basaglar days #60 mL KwikPen U-100 Insulin) pen needle, diabetic 31 gauge x #150 ea 07/10/22 11/21/22 Rx 3/16" (Comfort EZ Pen [place]) CPAP Machine #1 ea 08/02/22 11/21/22 Rx flash glucose sensor (FreeStyle #2 ea 08/07/22 11/21/22 Rx [place] 14 Day Sensor kit) calcium carbonate 600 mg-vitamin 1 tab PO DAILY 09/17/22 11/27/22 History D3 10 mcg (400 unit) tablet (Calcium 600 + D(3)) vedolizumab 300 mg intravenous 300 mg IV Q8WK #1 ea 10/04/22 11/27/22 Rx solution finasteride 5 mg tablet 5 mg PO DAILY #30 tabs 10/08/22 11/27/22 Rx tamsulosin 0.4 mg capsule 0.4 mg PO HS #30 caps 10/08/22 11/27/22 Rx blood-glucose sensor (FreeStyle #1 ea 11/19/22 11/21/22 Rx [place] 3 Sensor device) insulin aspart See Rx Instructions subcut DAILY 11/19/22 11/27/22 Rx (niacinamide)(U-100) 100 unit/mL(3 #90 mL mL) subcutaneous pen (Fiasp FlexTouch U-100 Insulin) zolpidem 12.5 mg tablet,extended 12.5 mg PO HS PRN insomnia #90 tabs 11/19/22 11/27/22 Rx release,multiphase prednisone 10 mg tablet 15 mg PO QAM 11/27/22 11/27/22 History Past Med/Surg History Medical History Burst fracture of lumbar vertebra Chronic back pain Chronic steroid use Crohn's disease (~08/2021) Diverticulosis Dysfunction of right eustachian tube Elevated hemoglobin A1c Fall in home History of intestinal obstruction History of migraine HLD (hyperlipidemia) HTN (hypertension) Hypercholesterolemia Hypertension Inclusion body myositis Follows with [facility] Rheumatology Insomnia Mixed conductive and sensorineural hearing loss of right ear with restricted hearing of left ear Neuropathy Osteoarthritis Polymyositis-dermatomyositis Sleep apnea CPAP Statin myopathy Type 1 diabetes mellitus on insulin therapy Urinary retention Wheelchair bound Surgical History History of biopsy muscle History of cholecystectomy History of colonoscopy History of esophagogastroduodenoscopy (EGD) History of incision and drainage (2016) I&D of sebaceous cyst right upper back History of intestinal surgery History of surgery (2017) epidermal cyst excision History of wisdom tooth extraction Family History Unknown Breast cancer Father Diabetes Father Hearing loss Stroke Mother Hypertension Cancer Heart disease Other Allergies No family history of adverse response to anesthesia No family history of bleeding disorder Denies family history of Ovarian cancer Prostate cancer Myocardial infarction Colorectal cancer Social History Smoking Status: Never smoker Tobacco Type: Cigarettes Age Started Using Tobacco: 14; Age Quit Using Tobacco: 17; Smoking End Date: 40 years ago; Second Hand Exposure: No; Hx Alcohol Use: No Hx Substance Use: No Preferred Language: Chinese Communication Ability: Effective Visual Impairment: No Limitations Hearing Ability: Normal Horse Trainer Required: No Beliefs That Will Affect Care: None marital status: Current Living Situation: Spouse Current Living Situation Comment: lives at home with , who is primary caregiver current occupational status: employed current occupation: security How many Children do You have: 2 Other Information That Helps Us Care for You: No Feels Safe at Home: Yes Safety Concerns: Feels Safe At This Time Childhood Exposure to Second-Hand Smoke: Yes caffeine: Yes during the past year weight has: remained stable Dental Care, Regularly: Yes Physical Activity Frequency: Does not Exercise Seatbelt Use: always Sunscreen Use: Yes Assistive Devices: CPAP, Lift Chair, Mechanical Lift, Slide Board, Stair Lift and Wheelchair Assistive Devices Comment: reading glasses Review of Systems Review of Systems: All systems reviewed & are unremarkable except as noted in HPI & below Physical Exam Physical Exam: General: patient In moderate distress secondary to abdominal discomfort, nontoxic in appearance, awake alert and oriented x4 Skin: warm, dry, intact, no rashes or lesions HEENT: NC/AT, PERRL, EOMI, anicteric sclera, conjunctiva without injection, external ear normal to inspection and nontender, nares patent, moist mucus membranes, dentition intact, no oropharyngeal lesions, neck supple, trachea midline, no LAD, no thyromegaly, no JVD Heart: +S1/S2, regular, no m/r/g Lungs: equal air entry bilaterally, no rales/rhonchi/wheezes Abd: Normoactive bowel sounds, abdomen soft, mildly distended, tympanic to percussion, diffusely tender without rebound/guarding or peritonitis Ext: warm, 2+ pulses in UE/LE bilaterally, no clubbing/cyanosis or edema Neuro: nonfocal Results & Data Results & Data Vital Signs (Past 12 Hours) Vital Signs Temp Pulse Pulse Resp BP BP Pulse Ox 11/27/22 22:01 98 H 14 108/76 95 11/27/22 19:31 110 H 11/27/22 19:28 95 11/27/22 19:22 38.2 C H 109 H 23 134/80 95 O2 Del Method 11/27/22 22:01 Room Air 11/27/22 19:31 11/27/22 19:28 11/27/22 19:22 Room Air Laboratory Results Laboratory Results WBC 16.92 K/ul (4.8-10.8) H 11/27/22 19:26 RBC 6.15 M/uL (4.70-6.10) H 11/27/22 19:26 Hgb 17.9 g/dl (14.0-18.0) 11/27/22 19:26 Hct 51.1 % (42.0-52.0) 11/27/22 19: MCV 83.1 fL (80.0-100.0) 11/27/22 19: MCH 29.1 pg (25.0-34.0) 11/27/22: MCHC 35.0 g/dL (32.0-36.0) 11/27/22: RDW Std Deviation 42.6 fL (36.4-46.3) 11/27/22: RDW Coeff of Amy 14.3 % (11.5-14.5) 11/27/22: Plt Count 286 K/uL (130-400) 11/27/22: MPV 10.2 fL (9.4-12.4) 11/27/22: Immature Gran % (Auto) 0.4 % 11/27/22 19: Neut % (Auto) 88.5 % 11/27/22 19: Lymph % (Auto) 3.4 % 11/27/22 19: Bennett % (Auto) 6.3 % 11/27/22 19: Eos % (Auto) 1.0 % 11/27/22 19: Baso % (Auto) 0.4 % 11/27/22: Neut # (Auto) 14.98 K/uL (1.40-6.50) H 11/27/22 19: Lymph # (Auto) 0.58 K/uL (1.2-3.4) L 11/27/22 19: Bennett # (Auto) 1.06 K/uL (0.11-0.59) H 11/27/22 19: Eos # (Auto) 0.17 K/uL (0-0.50) 11/27/22 19: Baso # (Auto) 0.06 K/uL (0-0.2) 11/27/22 19: Immature Gran # (Auto) 0.07 K/uL (0.01-0.20) 11/27/22 19: ESR 12 mm/hr (0-20) 11/27/22 19:26 Sodium 135 mmol/L (136-145) L 11/27/22 19: Potassium 3.8 mmol/L (3.5-5.1) 11/27/22 19:26 Chloride 102 mmol/L (98-107) 11/27/22 19:26 Carbon Dioxide 22 mmol/L (21-32) 11/27/22 19:26 Anion Gap 11 (3-11) 11/27/22 19:26 BUN 21 mg/dl (6-23) 11/27/22 19:26 Creatinine 0.35 mg/dl (0.6-1.4) L 11/27/22 19:26 Est Cr Clr Drug Dosing 273.1 ml/min 11/27/22 19:26 Est GFR ( Amer) > 150.0 ml/min 11/27/22 19:26 Est GFR (Non-Af Amer) 134.5 ml/min 11/27/22 19:26 BUN/Creatinine Ratio 60.0 (10-20) H 11/27/22 19:26 Glucose 165 mg/dl (70-99(Fasting)) H 11/27/22 19:26 POC Glucose 117 mg/dl (70-99) H 11/28/22 00:43 Lactate 1.7 mmol/L (0.4-2.0) 11/27/22 19:26 Calcium 8.8 mg/dl (8.6-10.3) 11/27/22 19:26 Phosphorus 2.7 mg/dl (2.5-4.9) 11/27/22 19:26 Magnesium 1.8 mg/dl (1.7-2.4) 11/27/22 19:26 Total Bilirubin 1.2 mg/dl (0.2-1.0) H 11/27/22 19:26 AST 34 U/L (13-39) 11/27/22 19:26 ALT 51 U/L (7-52) 11/27/22 19:26 Alkaline Phosphatase 81 U/L (34-104) 11/27/22 19:26 Troponin I High Sens 12.2 pg/ml (0-20) 11/27/22 19:26 C-Reactive Protein 2.47 mg/dl (0-0.5) H 11/27/22 19:26 Total Protein 6.2 gm/dl (6.0-8.3) 11/27/22 19:26 Albumin 3.9 gm/dl (3.4-5.0) 11/27/22 19:26 Globulin 2.3 gm/dl (2.5-4.0) L 11/27/22 19:26 Albumin/Globulin Ratio 1.7 (0.9-2) 11/27/22 19:26 Lipase 102 U/L (11-82) H 11/27/22 19:26 SARS-CoV-2, RNA, NAAT NEGATIVE (NEGATIVE) 11/27/22 21:31 Impressions Abdomen/Pelvis CT 11/27/22 20:56 Exam(s): CT ABDOMEN + PELVIS With Contrast IV Amt: 86ml Optiray 350 EXAM: CT Abdomen and Pelvis With Intravenous Contrast CLINICAL HISTORY: Reason for exam: abd pain, crohn's, fever. TECHNIQUE: Axial computed tomography images of the abdomen and pelvis with intravenous contrast. CTDI is 24.69 mGy and DLP is 1422.17 mGy-cm. Automated exposure control was utilized for the study. A dose lowering technique was utilized adhering to the principles of ALARA. CONTRAST: Patient received 86ml Optiray 350 of IV contrast COMPARISON: CT abdomen and pelvis 09/21/2022. FINDINGS: Lung bases: Unremarkable. No mass. No consolidation. ABDOMEN: Liver: Unremarkable. No mass. Gallbladder and bile ducts: Cholecystectomy. No ductal dilation. Pancreas: Unremarkable. No mass. No ductal dilation. Spleen: Unremarkable. No splenomegaly. Adrenals: Unremarkable. No mass. Kidneys and ureters: Subcentimeter hypodensities in the kidneys, too small to characterize. Punctate nonobstructing left renal calculus. Stomach and bowel: Fluid-filled small bowel and colon. Colonic diverticulosis without evidence of acute diverticulitis. Small ventral hernia containing the anti-mesenteric transverse colon compatible with a Martino's hernia, unchanged from prior. No obstruction. PELVIS: Appendix: No findings to suggest acute appendicitis. Bladder: Unremarkable. No mass. Reproductive: Enlarged prostate gland. ABDOMEN and PELVIS: Intraperitoneal space: Unremarkable. No free air. No significant fluid collection. Bones/joints: Compression fracture of the L1 vertebral body status post augmentation. Degenerative changes seen in the spine. No dislocation. Soft tissues: See above. Vasculature: Atherosclerotic calcifications in the abdominal aorta and branches. No abdominal aortic aneurysm. Lymph nodes: Unremarkable. No enlarged lymph nodes. IMPRESSION: 1. Fluid-filled small bowel and colon. Recommend correlation for enterocolitis. 2. Colonic diverticulosis without evidence of acute diverticulitis. 3. Small ventral hernia containing the anti-mesenteric transverse colon compatible with a Martino's hernia, unchanged from prior. No associated abnormal bowel wall thickening or fat stranding. Electronically signed by: Mitul Rome MD 11/27/22 21:43 PM Chest X-Ray 11/27/22 22:16 SINGLE VIEW CHEST CLINICAL HISTORY: Generalized abdominal pain. FINDINGS: An AP, portable, upright chest radiograph is compared to study dated 05/24/2022. The examination is degraded by portable technique and apical lordotic positioning. The heart is top normal for projection. There is bibasilar scarring/atelectasis. No airspace consolidation or large pleural effusion is identified. No pneumothorax is seen. The bony thorax is grossly intact. IMPRESSION: No active disease in the chest. ACT 112: Negative or not required by law. Electronically signed by: Carlo Zarate M.D. 11/27/2022 10:42 PM ECG Additional Comments: ordered PG Care Time/CCT Total # of Minutes Spent Total Time Spent with Patient: Total time spent is greater than 50% in coordination of care (as documented) at patient's floor/unit and/or counseling patient: Coding Level of Care Code 96071 INT INP/OBS CARE 3/75MIN Diagnoses Abdominal pain R10.9 Diabetes E11.9 Inclusion body myositis G72.41 HTN (hypertension) I10 HLD (hyperlipidemia) E78.5 Sleep apnea G47.30 Crohn's disease K50.90 BPH loc w urin obs/LUTS N40.1
[2022-11-28] MEDS ORDERED: GLUCOSE 40% GEL 15 GM TUBE PO PRN (00:37)
[2022-11-28] MEDS ORDERED: GLUCAGON FOR INJ 1 MG VIAL SQ PRN (00:37)
[2022-11-28] MEDS ORDERED: HYDROmorphone INJ 0.5 MG/0.5 ML SYR IV PRN (00:37)
[2022-11-28] MEDS ORDERED: DEXTROSE 50% 50 ML SYRINGE IV PRN (00:37)
[2022-11-28] MEDS ORDERED: GLUCOSE 10 TAB/TUBE PO PRN (00:37)
[2022-11-28 00:59] LABS: C Reactive Protein 2.47 mg/dl (0-0.5); Magnesium 1.8 mg/dl (1.7-2.4); Phosphorus 2.7 mg/dl (2.5-4.9)
[2022-11-28] MEDS: LACTATED RINGER'S 1,000 ML IV SCH ×2 (01:23→10:30)
[2022-11-28] MEDS: ONDANSETRON INJ 2 MG/ML 2 ML VIAL IV SCH ×5 (01:30→23:55)
[2022-11-28 02:30] LABS: Appearance Urine Clear (Clear); Bilirubin Urine Negative (Negative); Blood Urine Negative (Negative); Color Urine Dark Yellow; Glucose Urine UA Negative (Negative); Ketones Urine 2+ (Negative); Leukocyte Esterase Urine Negative (Negative); Nitrite Urine Negative (Negative); Protein Urine Negative (Negative); Specific Gravity Urine > 1.045 (1.000-1.030); Urobilinogen Urine Negative (Negative); pH Urine 5.5 (4.5-7.5)
[2022-11-28] MEDS: HYDROmorphone INJ 0.5 MG/0.5 ML SYR IV PRN ×2 (03:24→10:28)
[2022-11-28] MEDS: ACETAMINOPHEN 325 MG TAB PO PRN ×3 (06:00→16:03)
[2022-11-28] MEDS: INSULIN ASPART PER UNIT CHARGE SC SCH ×4 (06:11→20:47)
--- NOTE | 2022-11-28 07:40 | Hospitalist Progress Note ---
Date of Service November 28, 2022 Assessment & Plan (1) Norovirus: Plan: + on stool testing -- see below, presented w/ n/v/d, fever supportive care as outlined (2) Abdominal pain: Plan: 62yo male with history of Crohn's disease on Entyvio infusions presenting with acute onset diffuse abdominal pain, nausea, vomiting and diarrhea. Recent admission August 2022 for SBOI/ileus and managed conservatively. CT imaging suggestive of enterocolitis. OF NOTE> mention of Martino's hernia -- ? if temp strangulation causing issues vs other/early SBO/infectious enterocolitis His abdomen is mildly distended and diffusely tender, non-acute however. Workup significant for leukocytosis with WBC=16.92, mild elevation of Yhdwss=590 and CRP=2.47. Ddx to include flare of Crohn's disease, infectious enterocolitis vs early bowel obstruction. Lactic wnl 1.7 Temp 38.2C in ER Blood cultures pending Stool studies +NOROVIRUS. Contact precautions IVF w/ LR @ 125cc/hr x 2 L for now, monitor advancement of diet ANtiemetics/pain control prn KUB for AM w/o obtruction NPO --> advance to clears, [facility] GI consulted, to hold Entyvio, will help w/ arranging outpt f/u and rescheduling. no steroids given viral enterocolitis Monitor labs in AM (3) Diabetes: Plan: Patient with overall poorly controlled Type I DM, last A1c 7.6 He is on chronic steroids which contributes to his hyperglycemia. Last HgbA1C = 7.6 on 10/11/22. Patient is on 65u Glargine and Aspart with meals at home. He follows with Endocrine - last seen 10/11/22. 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 He is on chronic steroids and MTX as well. He follows with Rheumatology - last seen 11/07/22. Continue Prednisone 15mg po daily --monitor closely for need for stress steroids Continue Cymbalta 60mg po qPM CK added to AM labs -- 435 --> AST/ALT likely elevation 2nd to mild rhabdo IVF as above Monitor CK/LFTs in AM (5) HTN (hypertension): Plan: Chronic. Stable Continue Lisinopril Continue to monitor -- currently 136/72 (6) HLD (hyperlipidemia): Plan: Chronic. Patient with history of statin-induced myositis -Continue Zetia (7) Sleep apnea: Plan: Chronic -Continue CPAP qHS 9cmH20 (8) Crohn's disease: Plan: Chronic. Possible acute flare as etiology of patient's current abdominal symptoms suspected however stool testing positive for norovirus as above -Continue home Prednisone 15mg po daily for now -Dilaudid PRN pain Resume entyvio next week outpatient infusion (9) BPH loc w urin obs/LUTS: Plan: Chronic. -Continue Finasteride -Continue Flomax -Monitor UOP DVT proph: Lovenox SQ while inpatient Admission and Anticipated Discharge Date Admission Date: November 27, 2022 Supervising Physician Co-Signing Physician Notes The patient was not seen by me. The chart was reviewed. Case discussed with YADI Vides. Agree with assessment and plan Subjective eval this morning, laying in bed, reporting generalized cramping but no further vomiting. Discussed stool testing -- he notes ill over the weekend, inquiring how he woud have contracted this. Discussed infectious and going around. Supportive care w/ IVF. Will order diet and advance as tolerated. Did not want his insulin this AM, BSG was 110s. Discussed monitoring over next 24-48 hours/possible dc tomorrow. He is concerned about waiting on his ENtyvio as previously waited, but as discussed by GI rec waiting til next week and their office to contact [facility] about rescheduling. Questions/concerns addressed at this time. Physical Exam Physical Exam: General: WD/WN obese male laying in bed, NAD, AOx3 HEENT: head normocephalic, atraumatic, mmm, trachea midline Resp; CTA, no w/c, 99% on RA CV: RRR, no significant m/r/g, no pitting edema GI: +BS, soft, +slight distension, generalized tenderness/cramping but no overt pain/rebound or guarding : no bhandari MSK/Neuro: no focal deficits/slurred speech Psych: AOx3, pleasant and cooperative Results & Data Results & Data Vital Signs (Past 12 Hours) Vital Signs Temp Pulse Pulse Pulse Resp BP Pulse Ox 11/28/22 00:52 37.1 C 82 18 134/85 99 11/28/22 00:09 100 H 20 128/71 100 11/27/22 23:38 97 H 11/27/22 23:00 99 H 23 150/86 H 96 11/27/22 22:01 98 H 14 108/76 95 O2 Del Method O2 Flow Rate 11/28/22 00:52 Nasal Cannula 2 11/28/22 00:09 Nasal Cannula 2 11/27/22 23:38 11/27/22 23:00 Room Air 11/27/22 22:01 Room Air Laboratory Results 11/28/22 11/28/22 11/28/22 Range/Units 07:48 07:04 07:04 WBC 10.40 (4.8-10.8) K/ul RBC 5.40 (4.70-6.10) M/uL Hgb 15.7 (14.0-18.0) g/dl Hct 46.4 (42.0-52.0) % MCV 85.9 (80.0-100.0) fL MCH 29.1 (25.0-34.0) pg MCHC 33.8 (32.0-36.0) g/dL RDW Std Deviation 44.8 (36.4-46.3) fL RDW Coeff of Amy 14.2 (11.5-14.5) % Plt Count 221 (130-400) K/uL MPV 10.7 (9.4-12.4) fL Immature Gran % (Auto) % Neut % (Auto) % Lymph % (Auto) % [place] % (Auto) % Eos % (Auto) % Baso % (Auto) % Neut # (Auto) (1.40-6.50) K/uL Lymph # (Auto) (1.2-3.4) K/uL [place] # (Auto) (0.11-0.59) K/uL Eos # (Auto) (0-0.50) K/uL Baso # (Auto) (0-0.2) K/uL Immature Gran # (Auto) (0.01-0.20) K/uL ESR (0-20) mm/hr Sodium 140 (136-145) mmol/L Potassium 3.7 (3.5-5.1) mmol/L Chloride 104 (98-107) mmol/L Carbon Dioxide 28 (21-32) mmol/L Anion Gap 8 (3-11) BUN 16 (6-23) mg/dl Creatinine 0.34 L (0.6-1.4) mg/dl Est Cr Clr Drug Dosing 285.2 ml/min Est GFR ( Amer) > 150.0 ml/min Est GFR (Non-Af Amer) 136.1 ml/min BUN/Creatinine Ratio 47.1 H (10-20) Glucose 133 H (70-99(Fasting)) mg/dl POC Glucose 115 H (70-99) mg/dl Lactate (0.4-2.0) mmol/L Calcium 7.9 L (8.6-10.3) mg/dl Phosphorus (2.5-4.9) mg/dl Magnesium 1.8 (1.7-2.4) mg/dl Total Bilirubin 1.3 H (0.2-1.0) mg/dl Direct Bilirubin 0.3 H (0-0.2) mg/dl AST 44 H (13-39) U/L ALT 60 H (7-52) U/L Alkaline Phosphatase 89 (34-104) U/L Total Creatine Kinase 435 H (30-223) U/L Troponin I High Sens (0-20) pg/ml C-Reactive Protein (0-0.5) mg/dl Total Protein 5.3 L (6.0-8.3) gm/dl Albumin 3.2 L (3.4-5.0) gm/dl Globulin (2.5-4.0) gm/dl Albumin/Globulin Ratio (0.9-2) Lipase (11-82) U/L Urine Color Urine Appearance (Clear) Urine pH (4.5-7.5) Ur Specific [place] (1.000-1.030) Urine Protein (Negative) Urine Glucose (UA) (Negative) Urine Ketones (Negative) Urine Blood (Negative) Urine Nitrite (Negative) Urine Bilirubin (Negative) Urine Urobilinogen (Negative) Ur Leukocyte Esterase (Negative) Stl C. cayetanensis PCR (NotDetected) Stool Rotavirus A PCR (NotDetected) Stl Adenov F 40/41 PCR (NotDetected) Stool Astrovirus (PCR) (NotDetected) Stool Campylobacter PCR (NotDetected) Stl C. diff Tox B Gene (Neg) Stool Cryptosporidium PCR (NotDetected) Stl E.coli Shiga Tox PCR (NotDetected) Stl Enterotoxigenic E PCR (NotDetected) Stool EPEC (PCR) (NotDetected) Stool EAEC (PCR) (NotDetected) Stl E. histolytica PCR (NotDetected) Stool Giardia Lamblia PCR (NotDetected) Stool Salmonella PCR (NotDetected) Stool Sapovirus (PCR) (NotDetected) Stl P. shigelloides PCR (NotDetected) Stl Shigella/EIEC PCR (NotDetected) St Y.enterocolitica PCR (NotDetected) Stool Vibrio (PCR) (NotDetected) Stl Vibrio cholerae PCR (NotDetected) Stl Norovirus GI/GII PCR (NotDetected) SARS-CoV-2, RNA, NAAT (NEGATIVE) 11/28/22 11/28/22 11/28/22 Range/Units 06:07 05:15 05:15 WBC (4.8-10.8) K/ul RBC (4.70-6.10) M/uL Hgb (14.0-18.0) g/dl Hct (42.0-52.0) % MCV (80.0-100.0) fL MCH (25.0-34.0) pg MCHC (32.0-36.0) g/dL RDW Std Deviation (36.4-46.3) fL RDW Coeff of Amy (11.5-14.5) % Plt Count (130-400) K/uL MPV (9.4-12.4) fL Immature Gran % (Auto) % Neut % (Auto) % Lymph % (Auto) % [place] % (Auto) % Eos % (Auto) % Baso % (Auto) % Neut # (Auto) (1.40-6.50) K/uL Lymph # (Auto) (1.2-3.4) K/uL [place] # (Auto) (0.11-0.59) K/uL Eos # (Auto) (0-0.50) K/uL Baso # (Auto) (0-0.2) K/uL Immature Gran # (Auto) (0.01-0.20) K/uL ESR (0-20) mm/hr Sodium (136-145) mmol/L Potassium (3.5-5.1) mmol/L Chloride (98-107) mmol/L Carbon Dioxide (21-32) mmol/L Anion Gap (3-11) BUN (6-23) mg/dl Creatinine (0.6-1.4) mg/dl Est Cr Clr Drug Dosing ml/min Est GFR ( Amer) ml/min Est GFR (Non-Af Amer) ml/min BUN/Creatinine Ratio (10-20) Glucose (70-99(Fasting)) mg/dl POC Glucose 115 H (70-99) mg/dl Lactate (0.4-2.0) mmol/L Calcium (8.6-10.3) mg/dl Phosphorus (2.5-4.9) mg/dl Magnesium (1.7-2.4) mg/dl Total Bilirubin (0.2-1.0) mg/dl Direct Bilirubin (0-0.2) mg/dl AST (13-39) U/L ALT (7-52) U/L Alkaline Phosphatase (34-104) U/L Total Creatine Kinase (30-223) U/L Troponin I High Sens (0-20) pg/ml C-Reactive Protein (0-0.5) mg/dl Total Protein (6.0-8.3) gm/dl Albumin (3.4-5.0) gm/dl Globulin (2.5-4.0) gm/dl Albumin/Globulin Ratio (0.9-2) Lipase (11-82) U/L Urine Color Urine Appearance (Clear) Urine pH (4.5-7.5) Ur Specific [place] (1.000-1.030) Urine Protein (Negative) Urine Glucose (UA) (Negative) Urine Ketones (Negative) Urine Blood (Negative) Urine Nitrite (Negative) Urine Bilirubin (Negative) Urine Urobilinogen (Negative) Ur Leukocyte Esterase (Negative) Stl C. cayetanensis PCR Not Detected (NotDetected) Stool Rotavirus A PCR Not Detected (NotDetected) Stl Adenov F 40/41 PCR Not Detected (NotDetected) Stool Astrovirus (PCR) Not Detected (NotDetected) Stool Campylobacter PCR Not Detected (NotDetected) Stl C. diff Tox B Gene Negative Cdiff Gene (Neg) Stool Cryptosporidium PCR Not Detected (NotDetected) Stl E.coli Shiga Tox PCR Not Detected (NotDetected) Stl Enterotoxigenic E PCR Not Detected (NotDetected) Stool EPEC (PCR) Not Detected (NotDetected) Stool EAEC (PCR) Not Detected (NotDetected) Stl E. histolytica PCR Not Detected (NotDetected) Stool Giardia Lamblia PCR Not Detected (NotDetected) Stool Salmonella PCR Not Detected (NotDetected) Stool Sapovirus (PCR) Not Detected (NotDetected) Stl P. shigelloides PCR Not Detected (NotDetected) Stl Shigella/EIEC PCR Not Detected (NotDetected) St Y.enterocolitica PCR Not Detected (NotDetected) Stool Vibrio (PCR) Not Detected (NotDetected) Stl Vibrio cholerae PCR Not Detected (NotDetected) Stl Norovirus GI/GII PCR DETECTED A* (NotDetected) SARS-CoV-2, RNA, NAAT (NEGATIVE) 11/28/22 11/28/22 11/28/22 Range/Units 03:44 01:05 00:43 WBC (4.8-10.8) K/ul RBC (4.70-6.10) M/uL Hgb (14.0-18.0) g/dl Hct (42.0-52.0) % MCV (80.0-100.0) fL MCH (25.0-34.0) pg MCHC (32.0-36.0) g/dL RDW Std Deviation (36.4-46.3) fL RDW Coeff of Amy (11.5-14.5) % Plt Count (130-400) K/uL MPV (9.4-12.4) fL Immature Gran % (Auto) % Neut % (Auto) % Lymph % (Auto) % [place] % (Auto) % Eos % (Auto) % Baso % (Auto) % Neut # (Auto) (1.40-6.50) K/uL Lymph # (Auto) (1.2-3.4) K/uL [place] # (Auto) (0.11-0.59) K/uL Eos # (Auto) (0-0.50) K/uL Baso # (Auto) (0-0.2) K/uL Immature Gran # (Auto) (0.01-0.20) K/uL ESR (0-20) mm/hr Sodium (136-145) mmol/L Potassium (3.5-5.1) mmol/L Chloride (98-107) mmol/L Carbon Dioxide (21-32) mmol/L Anion Gap (3-11) BUN (6-23) mg/dl Creatinine (0.6-1.4) mg/dl Est Cr Clr Drug Dosing ml/min Est GFR ( Amer) ml/min Est GFR (Non-Af Amer) ml/min BUN/Creatinine Ratio (10-20) Glucose (70-99(Fasting)) mg/dl POC Glucose 147 H 117 H (70-99) mg/dl Lactate (0.4-2.0) mmol/L Calcium (8.6-10.3) mg/dl Phosphorus (2.5-4.9) mg/dl Magnesium (1.7-2.4) mg/dl Total Bilirubin (0.2-1.0) mg/dl Direct Bilirubin (0-0.2) mg/dl AST (13-39) U/L ALT (7-52) U/L Alkaline Phosphatase (34-104) U/L Total Creatine Kinase (30-223) U/L Troponin I High Sens (0-20) pg/ml C-Reactive Protein (0-0.5) mg/dl Total Protein (6.0-8.3) gm/dl Albumin (3.4-5.0) gm/dl Globulin (2.5-4.0) gm/dl Albumin/Globulin Ratio (0.9-2) Lipase (11-82) U/L Urine Color Dark Yellow Urine Appearance Clear (Clear) Urine pH 5.5 (4.5-7.5) Ur Specific [place] > 1.045 H (1.000-1.030) Urine Protein Negative (Negative) Urine Glucose (UA) Negative (Negative) Urine Ketones 2+ H (Negative) Urine Blood Negative (Negative) Urine Nitrite Negative (Negative) Urine Bilirubin Negative (Negative) Urine Urobilinogen Negative (Negative) Ur Leukocyte Esterase Negative (Negative) Stl C. cayetanensis PCR (NotDetected) Stool Rotavirus A PCR (NotDetected) Stl Adenov F PCR (NotDetected) Stool Astrovirus (PCR) (NotDetected) Stool Campylobacter PCR (NotDetected) Stl C. diff Tox B Gene (Neg) Stool Cryptosporidium PCR (NotDetected) Stl E.coli Shiga Tox PCR (NotDetected) Stl Enterotoxigenic E PCR (NotDetected) Stool EPEC (PCR) (NotDetected) Stool EAEC (PCR) (NotDetected) Stl E. histolytica PCR (NotDetected) Stool Giardia Lamblia PCR (NotDetected) Stool Salmonella PCR (NotDetected) Stool Sapovirus (PCR) (NotDetected) Stl P. shigelloides PCR (NotDetected) Stl Shigella/EIEC PCR (NotDetected) St Y.enterocolitica PCR (NotDetected) Stool Vibrio (PCR) (NotDetected) Stl Vibrio cholerae PCR (NotDetected) Stl Norovirus GI/GII PCR (NotDetected) SARS-CoV-2, RNA, NAAT (NEGATIVE) 11/27/22 11/27/22 11/27/22 Range/Units 21:31 19:26 19:26 WBC (4.8-10.8) K/ul RBC (4.70-6.10) M/uL Hgb (14.0-18.0) g/dl Hct (42.0-52.0) % MCV (80.0-100.0) fL MCH (25.0-34.0) pg MCHC (32.0-36.0) g/dL RDW Std Deviation (36.4-46.3) fL RDW Coeff of Amy (11.5-14.5) % Plt Count (130-400) K/uL MPV (9.4-12.4) fL Immature Gran % (Auto) % Neut % (Auto) % Lymph % (Auto) % [place] % (Auto) % Eos % (Auto) % Baso % (Auto) % Neut # (Auto) (1.40-6.50) K/uL Lymph # (Auto) (1.2-3.4) K/uL [place] # (Auto) (0.11-0.59) K/uL Eos # (Auto) (0-0.50) K/uL Baso # (Auto) (0-0.2) K/uL Immature Gran # (Auto) (0.01-0.20) K/uL ESR 12 (0-20) mm/hr Sodium (136-145) mmol/L Potassium (3.5-5.1) mmol/L Chloride (98-107) mmol/L Carbon Dioxide (21-32) mmol/L Anion Gap (3-11) BUN (6-23) mg/dl Creatinine (0.6-1.4) mg/dl Est Cr Clr Drug Dosing ml/min Est GFR ( Amer) ml/min Est GFR (Non-Af Amer) ml/min BUN/Creatinine Ratio (10-20) Glucose (70-99(Fasting)) mg/dl POC Glucose (70-99) mg/dl Lactate 1.7 (0.4-2.0) mmol/L Calcium (8.6-10.3) mg/dl Phosphorus (2.5-4.9) mg/dl Magnesium (1.7-2.4) mg/dl Total Bilirubin (0.2-1.0) mg/dl Direct Bilirubin (0-0.2) mg/dl AST (13-39) U/L ALT (7-52) U/L Alkaline Phosphatase (34-104) U/L Total Creatine Kinase (30-223) U/L Troponin I High Sens (0-20) pg/ml C-Reactive Protein (0-0.5) mg/dl Total Protein (6.0-8.3) gm/dl Albumin (3.4-5.0) gm/dl Globulin (2.5-4.0) gm/dl Albumin/Globulin Ratio (0.9-2) Lipase (11-82) U/L Urine Color Urine Appearance (Clear) Urine pH (4.5-7.5) Ur Specific [place] (1.000-1.030) Urine Protein (Negative) Urine Glucose (UA) (Negative) Urine Ketones (Negative) Urine Blood (Negative) Urine Nitrite (Negative) Urine Bilirubin (Negative) Urine Urobilinogen (Negative) Ur Leukocyte Esterase (Negative) Stl C. cayetanensis PCR (NotDetected) Stool Rotavirus A PCR (NotDetected) Stl Adenov F 40/41 PCR (NotDetected) Stool Astrovirus (PCR) (NotDetected) Stool Campylobacter PCR (NotDetected) Stl C. diff Tox B Gene (Neg) Stool Cryptosporidium PCR (NotDetected) Stl E.coli Shiga Tox PCR (NotDetected) Stl Enterotoxigenic E PCR (NotDetected) Stool EPEC (PCR) (NotDetected) Stool EAEC (PCR) (NotDetected) Stl E. histolytica PCR (NotDetected) Stool Giardia Lamblia PCR (NotDetected) Stool Salmonella PCR (NotDetected) Stool Sapovirus (PCR) (NotDetected) Stl P. shigelloides PCR (NotDetected) Stl Shigella/EIEC PCR (NotDetected) St Y.enterocolitica PCR (NotDetected) Stool Vibrio (PCR) (NotDetected) Stl Vibrio cholerae PCR (NotDetected) Stl Norovirus GI/GII PCR (NotDetected) SARS-CoV-2, RNA, NAAT NEGATIVE (NEGATIVE) 11/27/22 11/27/22 Range/Units 19:26 19:26 WBC 16.92 H (4.8-10.8) K/ul RBC 6.15 H (4.70-6.10) M/uL Hgb 17.9 (14.0-18.0) g/dl Hct 51.1 (42.0-52.0) % MCV 83.1 (80.0-100.0) fL MCH 29.1 (25.0-34.0) pg MCHC 35.0 (32.0-36.0) g/dL RDW Std Deviation 42.6 (36.4-46.3) fL RDW Coeff of Amy 14.3 (11.5-14.5) % Plt Count 286 (130-400) K/uL MPV 10.2 (9.4-12.4) fL Immature Gran % (Auto) 0.4 % Neut % (Auto) 88.5 % Lymph % (Auto) 3.4 % [place] % (Auto) 6.3 % Eos % (Auto) 1.0 % Baso % (Auto) 0.4 % Neut # (Auto) 14.98 H (1.40-6.50) K/uL Lymph # (Auto) 0.58 L (1.2-3.4) K/uL [place] # (Auto) 1.06 H (0.11-0.59) K/uL Eos # (Auto) 0.17 (0-0.50) K/uL Baso # (Auto) 0.06 (0-0.2) K/uL Immature Gran # (Auto) 0.07 (0.01-0.20) K/uL ESR (0-20) mm/hr Sodium 135 L (136-145) mmol/L Potassium 3.8 (3.5-5.1) mmol/L Chloride 102 (98-107) mmol/L Carbon Dioxide 22 (21-32) mmol/L Anion Gap 11 (3-11) BUN 21 (6-23) mg/dl Creatinine 0.35 L (0.6-1.4) mg/dl Est Cr Clr Drug Dosing 273.1 ml/min Est GFR ( Amer) > 150.0 ml/min Est GFR (Non-Af Amer) 134.5 ml/min BUN/Creatinine Ratio 60.0 H (10-20) Glucose 165 H (70-99(Fasting)) mg/dl POC Glucose (70-99) mg/dl Lactate (0.4-2.0) mmol/L Calcium 8.8 (8.6-10.3) mg/dl Phosphorus 2.7 (2.5-4.9) mg/dl Magnesium 1.8 (1.7-2.4) mg/dl Total Bilirubin 1.2 H (0.2-1.0) mg/dl Direct Bilirubin (0-0.2) mg/dl AST 34 (13-39) U/L ALT 51 (7-52) U/L Alkaline Phosphatase 81 (34-104) U/L Total Creatine Kinase (30-223) U/L Troponin I High Sens 12.2 (0-20) pg/ml C-Reactive Protein 2.47 H (0-0.5) mg/dl Total Protein 6.2 (6.0-8.3) gm/dl Albumin 3.9 (3.4-5.0) gm/dl Globulin 2.3 L (2.5-4.0) gm/dl Albumin/Globulin Ratio 1.7 (0.9-2) Lipase 102 H (11-82) U/L Urine Color Urine Appearance (Clear) Urine pH (4.5-7.5) Ur Specific [place] (1.000-1.030) Urine Protein (Negative) Urine Glucose (UA) (Negative) Urine Ketones (Negative) Urine Blood (Negative) Urine Nitrite (Negative) Urine Bilirubin (Negative) Urine Urobilinogen (Negative) Ur Leukocyte Esterase (Negative) Stl C. cayetanensis PCR (NotDetected) Stool Rotavirus A PCR (NotDetected) Stl Adenov F 40/41 PCR (NotDetected) Stool Astrovirus (PCR) (NotDetected) Stool Campylobacter PCR (NotDetected) Stl C. diff Tox B Gene (Neg) Stool Cryptosporidium PCR (NotDetected) Stl E.coli Shiga Tox PCR (NotDetected) Stl Enterotoxigenic E PCR (NotDetected) Stool EPEC (PCR) (NotDetected) Stool EAEC (PCR) (NotDetected) Stl E. histolytica PCR (NotDetected) Stool Giardia Lamblia PCR (NotDetected) Stool Salmonella PCR (NotDetected) Stool Sapovirus (PCR) (NotDetected) Stl P. shigelloides PCR (NotDetected) Stl Shigella/EIEC PCR (NotDetected) St Y.enterocolitica PCR (NotDetected) Stool Vibrio (PCR) (NotDetected) Stl Vibrio cholerae PCR (NotDetected) Stl Norovirus GI/GII PCR (NotDetected) SARS-CoV-2, RNA, NAAT (NEGATIVE) Diagnostic Findings Abdomen/Pelvis CT 11/27/22 20:56 Exam(s): CT ABDOMEN + PELVIS With Contrast IV Amt: 86ml Optiray 350 EXAM: CT Abdomen and Pelvis With Intravenous Contrast CLINICAL HISTORY: Reason for exam: abd pain, crohn's, fever. TECHNIQUE: Axial computed tomography images of the abdomen and pelvis with intravenous contrast. CTDI is 24.69 mGy and DLP is 1422.17 mGy-cm. Automated exposure control was utilized for the study. A dose lowering technique was utilized adhering to the principles of ALARA. CONTRAST: Patient received 86ml Optiray 350 of IV contrast COMPARISON: CT abdomen and pelvis 09/21/2022. FINDINGS: Lung bases: Unremarkable. No mass. No consolidation. ABDOMEN: Liver: Unremarkable. No mass. Gallbladder and bile ducts: Cholecystectomy. No ductal dilation. Pancreas: Unremarkable. No mass. No ductal dilation. Spleen: Unremarkable. No splenomegaly. Adrenals: Unremarkable. No mass. Kidneys and ureters: Subcentimeter hypodensities in the kidneys, too small to characterize. Punctate nonobstructing left renal calculus. Stomach and bowel: Fluid-filled small bowel and colon. Colonic diverticulosis without evidence of acute diverticulitis. Small ventral hernia containing the anti-mesenteric transverse colon compatible with a Martino's hernia, unchanged from prior. No obstruction. PELVIS: Appendix: No findings to suggest acute appendicitis. Bladder: Unremarkable. No mass. Reproductive: Enlarged prostate gland. ABDOMEN and PELVIS: Intraperitoneal space: Unremarkable. No free air. No significant fluid collection. Bones/joints: Compression fracture of the L1 vertebral body status post augmentation. Degenerative changes seen in the spine. No dislocation. Soft tissues: See above. Vasculature: Atherosclerotic calcifications in the abdominal aorta and branches. No abdominal aortic aneurysm. Lymph nodes: Unremarkable. No enlarged lymph nodes. IMPRESSION: 1. Fluid-filled small bowel and colon. Recommend correlation for enterocolitis. 2. Colonic diverticulosis without evidence of acute diverticulitis. 3. Small ventral hernia containing the anti-mesenteric transverse colon compatible with a Martino's hernia, unchanged from prior. No associated abnormal bowel wall thickening or fat stranding. Electronically signed by: Mitul Rome MD 11/27/22 21:43 PM Chest X-Ray 11/27/22 22:16 SINGLE VIEW CHEST CLINICAL HISTORY: Generalized abdominal pain. FINDINGS: An AP, portable, upright chest radiograph is compared to study dated 05/24/2022. The examination is degraded by portable technique and apical lordotic positioning. The heart is top normal for projection. There is bibasilar scarring/atelectasis. No airspace consolidation or large pleural effusion is identified. No pneumothorax is seen. The bony thorax is grossly intact. IMPRESSION: No active disease in the chest. ACT 112: Negative or not required by law. Electronically signed by: Carlo Zarate M.D. 11/27/2022 10:42 PM KUB X-Ray 11/28/22 09:00 KUB HISTORY: Acute abdominal pain with reported obstruction ?Obstruction COMPARISON: CT abdomen and pelvis 11/27/2022 FINDINGS: Surgical clips are noted within the abdomen. Contrast present within the urinary bladder lumen. Air-filled loops of large and small bowel small bowel measuring up to 8.3 cm. Small bowel loops measure up to 3.3 cm. 3 mm left renal calculus. No ureteral calculi. Cholecystectomy. No pneumoperitoneum or pneumatosis. No fracture. IMPRESSION: 1. Mild gaseous distention within both loops of large and small bowel suggestive of ileus versus a nonspecific enteritis/diarrheal illness. 2. No evidence of a bowel obstruction. 2. Left renal calculus. ACT 112: Negative or not required by law. The above report was generated using voice recognition software. It may contain grammatical, syntax or spelling errors. Electronically signed by: Stefano Agudelo M.D. 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
[2022-11-28 07:49] LABS: Hematocrit (blood only) 46.4 % (42.0-52.0); Hemoglobin 15.7 g/dl (14.0-18.0); Mean Corpuscular Hemoglobin 29.1 pg (25.0-34.0); Mean Corpuscular Hgb Conc 33.8 g/dL (32.0-36.0); Mean Corpuscular Volume 85.9 fL (80.0-100.0); Mean Platelet Volume 10.7 fL (9.4-12.4); Platelet Count 221 K/uL (130-400); RDW Coefficient of Variation 14.2 % (11.5-14.5); RDW Standard Deviation 44.8 fL (36.4-46.3)
[2022-11-28 08:14] LABS: Albumin Level 3.2 gm/dl (3.4-5.0); Anion Gap 8 (3-11); Bilirubin Direct 0.3 mg/dl (0-0.2); Bilirubin,Total 1.3 mg/dl (0.2-1.0); Calcium 7.9 mg/dl (8.6-10.3); Carbon Dioxide 28 mmol/L (21-32); Chloride 104 mmol/L (98-107); Potassium 3.7 mmol/L (3.5-5.1); Sodium 140 mmol/L (136-145)
[2022-11-28 08:19] LABS: Alanine Aminotransferase 60 U/L (7-52); Alkaline Phosphatase 89 U/L (34-104); Aspartate Aminotransferase 44 U/L (13-39); BUN Creatinine Ratio 47.1 (10-20); Blood Urea Nitrogen 16 mg/dl (6-23); Creatinine Clr Calc Pharmacy 285.2 ml/min; Est GFR (African American) > 150.0 ml/min; Est GFR (Non-African American) 136.1 ml/min; Glucose 133 mg/dl (70-99(Fasting)); Total Protein 5.3 gm/dl (6.0-8.3)
[2022-11-28 08:43] LABS: Adenovirus F 40/41 PCR Not Detected (NotDetected); Astrovirus PCR Not Detected (NotDetected); Campylobacter PCR Not Detected (NotDetected); Cryptosporidium PCR Not Detected (NotDetected); Cyclospora cayetanensis PCR Not Detected (NotDetected); Entamoeba histolytica PCR Not Detected (NotDetected); Enteroaggregative E.coli(EAEC) Not Detected (NotDetected); Enteropathogenic E.coli (EPEC) Not Detected (NotDetected); Enterotoxigenic E.coli (ETEC) Not Detected (NotDetected); Giardia lamblia PCR Not Detected (NotDetected); Plesiomonas shigelloides PCR Not Detected (NotDetected); Rotavirus A PCR Not Detected (NotDetected); Salmonella PCR Not Detected (NotDetected); Sapovirus PCR Not Detected (NotDetected); Shiga-like Toxin E.coli (STEC) Not Detected (NotDetected); Shigella/Enteroinvasive E.coli Not Detected (NotDetected); Vibrio cholerae PCR Not Detected (NotDetected); Vibrio species PCR Not Detected (NotDetected); Yersinia enterocolitica PCR Not Detected (NotDetected)
[2022-11-28 08:58] LABS: Magnesium 1.8 mg/dl (1.7-2.4)
[2022-11-28 08:59] LABS: Norovirus GI/GII PCR DETECTED (NotDetected)
[2022-11-28 09:03] LABS: Creatine Kinase 435 U/L (30-223)
--- NOTE | 2022-11-28 09:20 | XRay Report ---
KUB HISTORY: Acute abdominal pain with reported obstruction ?Obstruction COMPARISON: CT abdomen and pelvis 11/27/2022 FINDINGS: Surgical clips are noted within the abdomen. Contrast present within the urinary bladder allan men. Air-filled loops of large and small bowel small bowel measuring up to 8.3 cm. Small bowel loops measure up to 3.3 cm. 3 mm left renal calculus. No ureteral calculi. Cholecystectomy. No pneumoperit oneum or pneumatosis. No fracture. IMPRESSION: 1. Mild gaseous distention within both loops of large and small bowel suggestive of ileus versus a no nspecific enteritis/diarrheal illness. 2. No evidence of a bowel obstruction. 2. Left renal calculus. ACT 112: Negative or not required by law. The above report was generated using voice recognition software. It may contain grammatical, syntax o r spelling errors. Electronically signed by: Stefano Agudelo M.D. 11/28/2022 9:18 AM
--- NOTE | 2022-11-28 09:28 | Electrocardiogram Report ---
Test Reason : Blood Pressure : / mmHG Vent. Rate : 082 BPM Atrial Rate : 082 BPM P-R Int : 168 ms QRS Dur : 094 ms QT Int : 388 ms P-R-T Axes : 034 -09 053 degrees QTc Int : 453 ms Normal sinus rhythm Normal ECG When compared with ECG of 21-SEP-2022 22:15, No significant change was found Confirmed by Kendall Allen ([id number]) on 11/28/2022 9:28:13 AM Referred By: REFERRED SELF Confirmed By:Kendall Allen
[2022-11-28] MEDS: ENOXAPARIN INJ 40 MG/0.4 ML SYR SQ SCH (09:29)
[2022-11-28] MEDS: lisinopril 5 MG TAB PO SCH (09:30)
[2022-11-28] MEDS: EZETIMIBE 10 MG TABLET PO SCH (09:30)
[2022-11-28] MEDS: predniSONE 5 MG TAB PO SCH (09:31)
[2022-11-28] MEDS: GABAPENTIN 300 MG CAP PO SCH ×2 (09:32→20:47)
[2022-11-28] MEDS: FINASTERIDE 5 MG TAB PO SCH (09:32)
[2022-11-28] MEDS: LANTUS PER UNIT CHARGE SQ SCH ×2 (10:26→20:47)
--- NOTE | 2022-11-28 11:06 | Gastrointestinal Consultation ---
Date of Consultation November 28, 2022 Assessment & Plan (1) Norovirus: -IV fluids & supportive care (2) Crohn's disease: -Our office was able to assist him in rescheduling his Entyvio infusion for 12/06/22 at 7:30 AM. Continue Entyvio 300 mg IV q 6 weeks -He should follow-up in our office with his typical GI provider to discuss ongoing Crohn's maintenance. It appears he is due for a colonoscopy at this time. Supervising Physician Co-Signing Physician Notes Agree with ALCON Stallings as above Feeling much better at present Abd: Soft, NT, ND Continue current therapy and supportive care Diet advanced. History of Present Illness Reason for Consultation: enterocolitis, Crohn's Attending Physician: Rivera Ramos MD History of Present Illness Mr. 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 He presented to the ED with a very acute onset of abdominal pain, nausea, diarrhea & vomiting. He is on Entyvio 300 mg q IV q 6. He denies recent issues with any GI symptoms, noting he very abruptly was struck yesterday with symptoms. He has a history of SBO, however CT imaging in the ED was indicative of an enterocolitis/diarrheal illness. A stool PCR returned positive for Norovirus. He notes improvement of his nausea & vomiting. No further vomiting since 11/27/22. He notes frequent diarrhea still. He notes his was sick recently with similar symptoms. His WBC count on admission was 16,920 but has improved to 10,400. His CRP was noted to be 3.47, however he carries a diagnosis of inclusion body myositis and this CRP is lower than his previous readings. He needs assistance rescheduling his Entyvio Infusion. Allergies Allergy/AdvReac Type Severity Reaction Status Date / Time mercaptopurine AdvReac Severe JAUNDICE Verified 11/27/22 23:10 Home Medications Medication Instructions Recorded Confirmed Type multivitamin (Daily Multi-Vitamin 1 tab PO QAM 03/04/19 11/27/22 History tablet) blood sugar diagnostic (OneTouch #10 ea 04/01/19 11/21/22 History Ultra Blue Test Strip) diphenoxylate-atropine 2.5 1 tab PO QID PRN diarrhea #360 tabs 07/20/19 11/27/22 Rx mg-0.025 mg tablet CPAP Supplies #1 ea 10/08/19 11/21/22 Rx duloxetine 60 mg capsule,delayed 60 mg PO QPM 03/01/20 11/27/22 History release flash glucose scanning reader #1 ea 06/21/20 11/21/22 Rx (FreeStyle [place] 14 Day [place]) lisinopril 5 mg tablet 5 mg PO QAM #90 tabs 11/06/21 11/27/22 Rx pen needle, diabetic 32 gauge x #500 ea 03/12/22 11/21/22 Rx 5/32" (BD Ultra-Fine [place] Pen Needle) gabapentin 300 mg capsule 300 mg PO BID #180 caps 03/15/22 11/27/22 Rx ezetimibe 10 mg tablet 10 mg PO DAILY 04/28/22 11/27/22 History acetaminophen 500 mg tablet 1,000 mg PO BID #30 tabs 05/09/22 11/27/22 Rx (Tylenol Extra Strength) trazodone 100 mg tablet 100 mg PO HS #90 tabs 05/23/22 11/27/22 Rx insulin glargine 100 unit/mL (3 65 unit (0.65 mL) subcut QAM 90 07/10/22 11/27/22 Rx mL) subcutaneous pen (Basaglar days #60 mL KwikPen U-100 Insulin) pen needle, diabetic 31 gauge x #150 ea 07/10/22 11/21/22 Rx 3/16" (Comfort EZ Pen [place]) CPAP Machine #1 ea 08/02/22 11/21/22 Rx flash glucose sensor (FreeStyle #2 ea 08/07/22 11/21/22 Rx [place] 14 Day Sensor kit) calcium carbonate 600 mg-vitamin 1 tab PO DAILY 09/17/22 11/27/22 History D3 10 mcg (400 unit) tablet (Calcium 600 + D(3)) vedolizumab 300 mg intravenous 300 mg IV Q8WK #1 ea 10/04/22 11/27/22 Rx solution finasteride 5 mg tablet 5 mg PO DAILY #30 tabs 10/08/22 11/27/22 Rx tamsulosin 0.4 mg capsule 0.4 mg PO HS #30 caps 10/08/22 11/27/22 Rx blood-glucose sensor (FreeStyle #1 ea 11/19/22 11/21/22 Rx [place] 3 Sensor device) insulin aspart See Rx Instructions subcut DAILY 11/19/22 11/27/22 Rx (niacinamide)(U-100) 100 unit/mL(3 #90 mL mL) subcutaneous pen (Fiasp FlexTouch U-100 Insulin) zolpidem 12.5 mg tablet,extended 12.5 mg PO HS PRN insomnia #90 tabs 11/19/22 11/27/22 Rx release,multiphase prednisone 10 mg tablet 15 mg PO QAM 11/27/22 11/27/22 History Patient History Medical History Burst fracture of lumbar vertebra Chronic back pain Chronic steroid use Crohn's disease (~08/2021) Diverticulosis Dysfunction of right eustachian tube Elevated hemoglobin A1c Fall in home History of intestinal obstruction History of migraine HLD (hyperlipidemia) HTN (hypertension) Hypercholesterolemia Hypertension Inclusion body myositis Follows with [facility] Rheumatology Insomnia Mixed conductive and sensorineural hearing loss of right ear with restricted hearing of left ear Neuropathy Osteoarthritis Polymyositis-dermatomyositis Sleep apnea CPAP Statin myopathy Type 1 diabetes mellitus on insulin therapy Urinary retention Wheelchair bound Surgical History History of biopsy muscle History of cholecystectomy History of colonoscopy History of esophagogastroduodenoscopy (EGD) History of incision and drainage (2016) I&D of sebaceous cyst right upper back History of intestinal surgery History of surgery (2016) epidermal cyst excision History of wisdom tooth extraction Family History Unknown Breast cancer Father Diabetes Father Hearing loss Stroke Mother Hypertension Cancer Heart disease Other Allergies No family history of adverse response to anesthesia No family history of bleeding disorder Denies family history of Ovarian cancer Prostate cancer Myocardial infarction Colorectal cancer Social History Smoking Status: Never smoker Tobacco Type: Cigarettes Age Started Using Tobacco: 14; Age Quit Using Tobacco: 17; Smoking End Date: 40 years ago; Second Hand Exposure: No; Hx Alcohol Use: No Hx Substance Use: No Preferred Language: Tamazight Communication Ability: Effective Visual Impairment: No Limitations Hearing Ability: Normal Financial Planning Adviser Required: No Beliefs That Will Affect Care: None marital status: Current Living Situation: Spouse Current Living Situation Comment: lives at home with , who is primary caregiver current occupational status: employed current occupation: security How many Children do You have: 2 Other Information That Helps Us Care for You: No Feels Safe at Home: Yes Safety Concerns: Feels Safe At This Time Childhood Exposure to Second-Hand Smoke: Yes caffeine: Yes during the past year weight has: remained stable Dental Care, Regularly: Yes Physical Activity Frequency: Does not Exercise Seatbelt Use: always Sunscreen Use: Yes Assistive Devices: CPAP, Lift Chair, Mechanical Lift, Slide Board, Stair Lift and Wheelchair Assistive Devices Comment: reading glasses Review of Systems Constitutional: no fever and no chills Respiratory: no cough and no dyspnea Cardiovascular: no chest pain Gastrointestinal: + abdominal pain (improving) and + diarrhea/loose stools; no nausea and no vomiting (resolved) Psychiatric: no problem reported Hematologic / Lymphatic: no easy bleeding Physical Exam Constitutional: well developed Respiratory: normal respiratory effort Cardiovascular: Rate/Rhythm: regular rate Gastrointestinal (Abdomen): normal bowel sounds, soft, nontender, no hepatosplenomegaly Psychiatric: Orientation: alert and oriented x 3 Results & Data Vital Signs (Past 12 Hours) Vital Signs Temp Pulse Pulse Pulse Resp BP Pulse Ox 11/28/22 07:50 37.2 C 82 16 136/72 99 11/28/22 00:52 37.1 C 82 18 134/85 99 11/28/22 00:09 100 H 20 128/71 100 11/27/22 23:38 97 H 11/27/22 23:00 99 H 23 150/86 H 96 O2 Del Method O2 Flow Rate 11/28/22 07:50 Room Air 11/28/22 00:52 Nasal Cannula 2 11/28/22 00:09 Nasal Cannula 2 11/27/22 23:38 11/27/22 23:00 Room Air PG Care Time/CCT Total # of Minutes Spent Total Time Spent with Patient: Total time spent is greater than 50% in coordination of care (as documented) at patient's floor/unit and/or counseling patient: Coding Level of Care Code 99328 IN/OBS CONSULT LVL 4,60M Diagnoses Norovirus A08.11 Crohn's disease K50.90
[2022-11-28] MEDS ORDERED: Nursing to Pharmacy Communication SCH (19:30)
[2022-11-28] MEDS ORDERED: ZOLPIDEM TARTRATE 10 MG TAB PO PRN (20:53)
[2022-11-28] MEDS ORDERED: traZODone HCL 100 MG TAB PO SCH (21:00)
[2022-11-28] MEDS ORDERED: TAMSULOSIN HCL 0.4 MG CAP PO SCH (21:00)
[2022-11-28] MEDS ORDERED: DULoxetine HCL 60 MG CAP PO SCH (21:00)
[2022-11-29] MEDS: ONDANSETRON INJ 2 MG/ML 2 ML VIAL IV SCH ×2 (05:41→13:21)
--- NOTE | 2022-11-29 07:30 | Hospitalist Progress Note ---
Date of Service November 29, 2022 Assessment & Plan (1) Norovirus: Plan: + on stool testing -- see below, presented w/ n/v/d, fever supportive care as outlined (2) Abdominal pain: Plan: 62yo male with history of Crohn's disease on Entyvio infusions presenting with acute onset diffuse abdominal pain, nausea, vomiting and diarrhea. Recent admission August 2022 for SBOI/ileus and managed conservatively. CT imaging suggestive of enterocolitis. OF NOTE> mention of Martino's hernia -- ? if temp strangulation causing issues vs other/early SBO/infectious enterocolitis His abdomen is mildly distended and diffusely tender, non-acute however. Workup significant for leukocytosis with WBC=16.92, mild elevation of Gzhaen=271 and CRP=2.47. Ddx to include flare of Crohn's disease, infectious enterocolitis vs early bowel obstruction. Lactic wnl 1.7 Temp 38.2C in ER Blood cultures pending Stool studies +NOROVIRUS. Contact precautions IVF w/ LR @ 125cc/hr x 2 L for now, monitor advancement of diet ANtiemetics/pain control prn KUB for AM w/o obtruction NPO --> advance to clears, [facility] consulted, to hold Entyvio, will help w/ arranging outpt f/u and rescheduling. no steroids given viral enterocolitis Monitor labs in AM (3) Diabetes: Plan: Patient with overall poorly controlled Type I DM, last A1c 7.6 He is on chronic steroids which contributes to his hyperglycemia. Last HgbA1C = 7.6 on 10/11/22. Patient is on 65u Glargine and Aspart with meals at home. He follows with Endocrine - last seen 10/11/22. 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 He is on chronic steroids and MTX as well. He follows with Rheumatology - last seen 11/07/22. Continue Prednisone 15mg po daily --monitor closely for need for stress steroids Continue Cymbalta 60mg po qPM CK added to AM labs -- 435 --> AST/ALT likely elevation 2nd to mild rhabdo IVF as above Monitor CK/LFTs in AM (5) HTN (hypertension): Plan: Chronic. Stable Continue Lisinopril Continue to monitor -- currently 136/72 (6) HLD (hyperlipidemia): Plan: Chronic. Patient with history of statin-induced myositis -Continue Zetia (7) Sleep apnea: Plan: Chronic -Continue CPAP qHS 9cmH20 (8) Crohn's disease: Plan: Chronic. Possible acute flare as etiology of patient's current abdominal symptoms suspected however stool testing positive for norovirus as above -Continue home Prednisone 15mg po daily for now -Dilaudid PRN pain Resume entyvio next week outpatient infusion (9) BPH loc w urin obs/LUTS: Plan: Chronic. -Continue Finasteride -Continue Flomax -Monitor UOP DVT proph: Lovenox SQ while inpatient (10) Viral sepsis: Plan: 2nd to norovirus as above -- supportive care as outlined Admission and Anticipated Discharge Date Admission Date: November 27, 2022 Results & Data Results & Data Vital Signs (Past 12 Hours) Vital Signs Temp Pulse Pulse Resp BP Pulse Ox O2 Del Method 11/29/22 07:17 36.8 C 78 18 132/76 99 Room Air 11/28/22 22:17 70 16 96 11/28/22 20:51 37.0 C 69 17 148/89 H 97 Room Air 11/28/22 20:12 O2 Flow Rate FiO2 11/29/22 07:17 11/28/22 22:17 21 11/28/22 20:51 11/28/22 20:12 21 Laboratory Results 11/28/22 11/28/22 11/28/22 Range/Units 20:41 17:02 12:01 WBC (4.8-10.8) K/ul RBC (4.70-6.10) M/uL Hgb (14.0-18.0) g/dl Hct (42.0-52.0) % MCV (80.0-100.0) fL MCH (25.0-34.0) pg MCHC (32.0-36.0) g/dL RDW Std Deviation (36.4-46.3) fL RDW Coeff of Amy (11.5-14.5) % Plt Count (130-400) K/uL MPV (9.4-12.4) fL Sodium (136-145) mmol/L Potassium (3.5-5.1) mmol/L Chloride (98-107) mmol/L Carbon Dioxide (21-32) mmol/L Anion Gap (3-11) BUN (6-23) mg/dl Creatinine (0.6-1.4) mg/dl Est Cr Clr Drug Dosing ml/min Est GFR ( Amer) ml/min Est GFR (Non-Af Amer) ml/min BUN/Creatinine Ratio (10-20) Glucose (70-99(Fasting)) mg/dl POC Glucose 131 H 144 H 107 H (70-99) mg/dl Calcium (8.6-10.3) mg/dl Magnesium (1.7-2.4) mg/dl Total Bilirubin (0.2-1.0) mg/dl Direct Bilirubin (0-0.2) mg/dl AST (13-39) U/L ALT (7-52) U/L Alkaline Phosphatase (34-104) U/L Total Creatine Kinase (30-223) U/L Total Protein (6.0-8.3) gm/dl Albumin (3.4-5.0) gm/dl Stl C. cayetanensis PCR (NotDetected) Stool Rotavirus A PCR (NotDetected) Stl Adenov F 40/41 PCR (NotDetected) Stool Astrovirus (PCR) (NotDetected) Stool Campylobacter PCR (NotDetected) Stl C. diff Tox B Gene (Neg) Stool Cryptosporidium PCR (NotDetected) Stl E.coli Shiga Tox PCR (NotDetected) Stl Enterotoxigenic E PCR (NotDetected) Stool EPEC (PCR) (NotDetected) Stool EAEC (PCR) (NotDetected) Stl E. histolytica PCR (NotDetected) Stool Giardia Lamblia PCR (NotDetected) Stool Salmonella PCR (NotDetected) Stool Sapovirus (PCR) (NotDetected) Stl P. shigelloides PCR (NotDetected) Stl Shigella/EIEC PCR (NotDetected) St Y.enterocolitica PCR (NotDetected) Stool Vibrio (PCR) (NotDetected) Stl Vibrio cholerae PCR (NotDetected) Stl Norovirus GI/GII PCR (NotDetected) 11/28/22 11/28/22 11/28/22 Range/Units 07:48 07:04 07:04 WBC 10.40 (4.8-10.8) K/ul RBC 5.40 (4.70-6.10) M/uL Hgb 15.7 (14.0-18.0) g/dl Hct 46.4 (42.0-52.0) % MCV 85.9 (80.0-100.0) fL MCH 29.1 (25.0-34.0) pg MCHC 33.8 (32.0-36.0) g/dL RDW Std Deviation 44.8 (36.4-46.3) fL RDW Coeff of Amy 14.2 (11.5-14.5) % Plt Count 221 (130-400) K/uL MPV 10.7 (9.4-12.4) fL Sodium 140 (136-145) mmol/L Potassium 3.7 (3.5-5.1) mmol/L Chloride 104 (98-107) mmol/L Carbon Dioxide 28 (21-32) mmol/L Anion Gap 8 (3-11) BUN 16 (6-23) mg/dl Creatinine 0.34 L (0.6-1.4) mg/dl Est Cr Clr Drug Dosing 285.2 ml/min Est GFR ( Amer) > 150.0 ml/min Est GFR (Non-Af Amer) 136.1 ml/min BUN/Creatinine Ratio 47.1 H (10-20) Glucose 133 H (70-99(Fasting)) mg/dl POC Glucose 115 H (70-99) mg/dl Calcium 7.9 L (8.6-10.3) mg/dl Magnesium 1.8 (1.7-2.4) mg/dl Total Bilirubin 1.3 H (0.2-1.0) mg/dl Direct Bilirubin 0.3 H (0-0.2) mg/dl AST 44 H (13-39) U/L ALT 60 H (7-52) U/L Alkaline Phosphatase 89 (34-104) U/L Total Creatine Kinase 435 H (30-223) U/L Total Protein 5.3 L (6.0-8.3) gm/dl Albumin 3.2 L (3.4-5.0) gm/dl Stl C. cayetanensis PCR (NotDetected) Stool Rotavirus A PCR (NotDetected) Stl Adenov F 40/ PCR (NotDetected) Stool Astrovirus (PCR) (NotDetected) Stool Campylobacter PCR (NotDetected) Stl C. diff Tox B Gene (Neg) Stool Cryptosporidium PCR (NotDetected) Stl E.coli Shiga Tox PCR (NotDetected) Stl Enterotoxigenic E PCR (NotDetected) Stool EPEC (PCR) (NotDetected) Stool EAEC (PCR) (NotDetected) Stl E. histolytica PCR (NotDetected) Stool Giardia Lamblia PCR (NotDetected) Stool Salmonella PCR (NotDetected) Stool Sapovirus (PCR) (NotDetected) Stl P. shigelloides PCR (NotDetected) Stl Shigella/EIEC PCR (NotDetected) St Y.enterocolitica PCR (NotDetected) Stool Vibrio (PCR) (NotDetected) Stl Vibrio cholerae PCR (NotDetected) Stl Norovirus GI/GII PCR (NotDetected) 11/28/22 11/28/22 Range/Units 05:15 05:15 WBC (4.8-10.8) K/ul RBC (4.70-6.10) M/uL Hgb (14.0-18.0) g/dl Hct (42.0-52.0) % MCV (80.0-100.0) fL MCH (25.0-34.0) pg MCHC (32.0-36.0) g/dL RDW Std Deviation (36.4-46.3) fL RDW Coeff of Amy (11.5-14.5) % Plt Count (130-400) K/uL MPV (9.4-12.4) fL Sodium (136-145) mmol/L Potassium (3.5-5.1) mmol/L Chloride (98-107) mmol/L Carbon Dioxide (21-32) mmol/L Anion Gap (3-11) BUN (6-23) mg/dl Creatinine (0.6-1.4) mg/dl Est Cr Clr Drug Dosing ml/min Est GFR ( Amer) ml/min Est GFR (Non-Af Amer) ml/min BUN/Creatinine Ratio (10-20) Glucose (70-99(Fasting)) mg/dl POC Glucose (70-99) mg/dl Calcium (8.6-10.3) mg/dl Magnesium (1.7-2.4) mg/dl Total Bilirubin (0.2-1.0) mg/dl Direct Bilirubin (0-0.2) mg/dl AST (13-39) U/L ALT (7-52) U/L Alkaline Phosphatase (34-104) U/L Total Creatine Kinase (30-223) U/L Total Protein (6.0-8.3) gm/dl Albumin (3.4-5.0) gm/dl Stl C. cayetanensis PCR Not Detected (NotDetected) Stool Rotavirus A PCR Not Detected (NotDetected) Stl Adenov F 40/41 PCR Not Detected (NotDetected) Stool Astrovirus (PCR) Not Detected (NotDetected) Stool Campylobacter PCR Not Detected (NotDetected) Stl C. diff Tox B Gene Negative Cdiff Gene (Neg) Stool Cryptosporidium PCR Not Detected (NotDetected) Stl E.coli Shiga Tox PCR Not Detected (NotDetected) Stl Enterotoxigenic E PCR Not Detected (NotDetected) Stool EPEC (PCR) Not Detected (NotDetected) Stool EAEC (PCR) Not Detected (NotDetected) Stl E. histolytica PCR Not Detected (NotDetected) Stool Giardia Lamblia PCR Not Detected (NotDetected) Stool Salmonella PCR Not Detected (NotDetected) Stool Sapovirus (PCR) Not Detected (NotDetected) Stl P. shigelloides PCR Not Detected (NotDetected) Stl Shigella/EIEC PCR Not Detected (NotDetected) St Y.enterocolitica PCR Not Detected (NotDetected) Stool Vibrio (PCR) Not Detected (NotDetected) Stl Vibrio cholerae PCR Not Detected (NotDetected) Stl Norovirus GI/GII PCR DETECTED A* (NotDetected) PG Care Time/CCT Total # of Minutes Spent Total Time Spent with Patient: Total time spent is greater than 50% in coordination of care (as documented) at patient's floor/unit and/or counseling patient: Coding Diagnoses Norovirus A08.11 Abdominal pain R10.9 Diabetes E11.9 Inclusion body myositis G72.41 HTN (hypertension) I10 HLD (hyperlipidemia) E78.5 Sleep apnea G47.30 Crohn's disease K50.90 BPH loc w urin obs/LUTS N40.1 Viral sepsis A41.89; B97.89
[2022-11-29 08:14] LABS: Basophils # (auto) 0.02 K/uL (0-0.2); Basophils % (auto) 0.4 %; Eosinophils # (auto) 0.18 K/uL (0-0.50); Eosinophils % (auto) 3.2 %; Hematocrit (blood only) 44.1 % (42.0-52.0); Hemoglobin 14.9 g/dl (14.0-18.0); Immature Granulocytes # (auto) 0.02 K/uL (0.01-0.20); Immature Granulocytes % (auto) 0.4 %; Lymphocytes # (auto) 1.28 K/uL (1.2-3.4); Lymphocytes % (auto) 22.5 %; Mean Corpuscular Hemoglobin 28.7 pg (25.0-34.0); Mean Corpuscular Hgb Conc 33.8 g/dL (32.0-36.0); Mean Corpuscular Volume 84.8 fL (80.0-100.0); Mean Platelet Volume 10.3 fL (9.4-12.4); Monocytes # (auto) 1.03 K/uL (0.11-0.59); Monocytes % (auto) 18.1 %; Neutrophils # (auto) 3.17 K/uL (1.40-6.50); Neutrophils % (auto) 55.4 %; Platelet Count 210 K/uL (130-400); RDW Coefficient of Variation 13.9 % (11.5-14.5); RDW Standard Deviation 43.1 fL (36.4-46.3)
[2022-11-29] MEDS: CARBOHYDRATES FOR HYPOGLYCEMIA PO PRN ×2 (08:21→08:50)
[2022-11-29 08:37] LABS: Alanine Aminotransferase 52 U/L (7-52); Albumin Level 3.3 gm/dl (3.4-5.0); Alkaline Phosphatase 75 U/L (34-104); Anion Gap 6 (3-11); Aspartate Aminotransferase 32 U/L (13-39); BUN Creatinine Ratio 21.9 (10-20); Bilirubin Direct 0.2 mg/dl (0-0.2); Bilirubin,Total 0.7 mg/dl (0.2-1.0); Blood Urea Nitrogen 7 mg/dl (6-23); Calcium 7.9 mg/dl (8.6-10.3); Carbon Dioxide 28 mmol/L (21-32); Chloride 106 mmol/L (98-107); Creatine Kinase 387 U/L (30-223); Creatinine Clr Calc Pharmacy 303.1 ml/min; Est GFR (African American) > 150.0 ml/min; Est GFR (Non-African American) 139.5 ml/min; Glucose 69 mg/dl (70-99(Fasting)); Lipase 4 U/L (11-82); Potassium 3.2 mmol/L (3.5-5.1); Sodium 140 mmol/L (136-145); Total Protein 5.2 gm/dl (6.0-8.3)
[2022-11-29] MEDS ORDERED: POTASSIUM CHLORIDE CRTAB 20 MEQ TABCR PO STA (09:00)
[2022-11-29] MEDS ORDERED: MAGNESIUM SULFATE / D5W 1 GM/100 ML BAG IV ONE (09:01)
[2022-11-29] MEDS: lisinopril 5 MG TAB PO SCH (09:10)
[2022-11-29] MEDS: GABAPENTIN 300 MG CAP PO SCH (09:10)
[2022-11-29] MEDS: FINASTERIDE 5 MG TAB PO SCH (09:11)
[2022-11-29] MEDS: EZETIMIBE 10 MG TABLET PO SCH (09:11)
[2022-11-29] MEDS: INSULIN ASPART PER UNIT CHARGE SC SCH ×2 (09:11→13:33)
[2022-11-29] MEDS: predniSONE 5 MG TAB PO SCH (09:13)
[2022-11-29] MEDS: ENOXAPARIN INJ 40 MG/0.4 ML SYR SQ SCH (09:13)
[2022-11-29] MEDS: LANTUS PER UNIT CHARGE SQ SCH (09:14)
[2022-11-29 09:53] LABS: Magnesium 1.9 mg/dl (1.7-2.4)
--- NOTE | 2022-11-29 11:35 | Discharge Summary ---
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 Patient reports that his Crohn's disease is overall well controlled. He was on Entyvio which was temporarily delayed secondary to recent changes with his insurance. He has since resumed Entyvio. Next dose is due in 2 days. He is then planning to change his in infusions to every 6 weeks. At approximately 11:00 this morning the patient developed diffuse severe abdominal pain as well as nausea with nonbloody/nonbilious vomiting and dry heaves. He also had multiple episodes of watery diarrhea. He feels that his abdomen is distended and diffusely tender. Febrile in the ER but otherwise denies fever and chills. He does have some left-sided chest pain at present. He reports he is not passing flatus. No additional complaints at this time In the ER patient is febrile, otherwise HD stable. NAD ER course: Morphine Zofran Normal saline x2 L Admission Exam Per Admitting Provider General: patient In moderate distress secondary to abdominal discomfort, nontoxic in appearance, awake alert and oriented x4 Skin: warm, dry, intact, no rashes or lesions HEENT: NC/AT, PERRL, EOMI, anicteric sclera, conjunctiva without injection, e xternal ear normal to inspection and nontender, nares patent, moist mucus membranes, dentition intact, no oropharyngeal lesions, neck supple, trachea midline, no LAD, no thyromegaly, no JVD Heart: +S1/S2, regular, no m/r/g Lungs: equal air entry bilaterally, no rales/rhonchi/wheezes Abd: Normoactive bowel sounds, abdomen soft, mildly distended, tympanic to percussion, diffusely tender without rebound/guarding or peritonitis Ext: warm, 2+ pulses in UE/LE bilaterally, no clubbing/cyanosis or edema Neuro: nonfocal Principal Diagnosis Norovirus Discharge Exam General: WD/WN obese male laying in bed, NAD, AOx3 HEENT: head normocephalic, atraumatic, mmm, trachea midline Resp; CTA, no w/c, 99% on RA CV: RRR, no significant m/r/g, no pitting edema GI: +BS, soft, +less distension, NONTENDER : no bhandari MSK/Neuro: no focal deficits/slurred speech Psych: AOx3, pleasant and cooperative Discharge Data Allergies Allergy/AdvReac Type Severity Reaction Status Date / Time mercaptopurine AdvReac Severe JAUNDICE Verified 11/27/22 23:10 Consultations 11/27/22 22:58 ED Decision to Admit Stat 11/28/22 07:34 Consult Gastroenterology Routine Ordered Studies Abdomen/Pelvis CT 11/27/22 20:56 Exam(s): CT ABDOMEN + PELVIS With Contrast IV Amt: 86ml Optiray 350 EXAM: CT Abdomen and Pelvis With Intravenous Contrast CLINICAL HISTORY: Reason for exam: abd pain, crohn's, fever. TECHNIQUE: Axial computed tomography images of the abdomen and pelvis with intravenous contrast. CTDI is 24.69 mGy and DLP is 1422.17 mGy-cm. Automated exposure control was utilized for the study. A dose lowering technique was utilized adhering to the principles of ALARA. CONTRAST: Patient received 86ml Optiray 350 of IV contrast COMPARISON: CT abdomen and pelvis 09/21/2022. FINDINGS: Lung bases: Unremarkable. No mass. No consolidation. ABDOMEN: Liver: Unremarkable. No mass. Gallbladder and bile ducts: Cholecystectomy. No ductal dilation. Pancreas: Unremarkable. No mass. No ductal dilation. Spleen: Unremarkable. No splenomegaly. Adrenals: Unremarkable. No mass. Kidneys and ureters: Subcentimeter hypodensities in the kidneys, too small to characterize. Punctate nonobstructing left renal calculus. Stomach and bowel: Fluid-filled small bowel and colon. Colonic diverticulosis without evidence of acute diverticulitis. Small ventral hernia containing the anti-mesenteric transverse colon compatible with a Martino's hernia, unchanged from prior. No obstruction. PELVIS: Appendix: No findings to suggest acute appendicitis. Bladder: Unremarkable. No mass. Reproductive: Enlarged prostate gland. ABDOMEN and PELVIS: Intraperitoneal space: Unremarkable. No free air. No significant fluid collection. Bones/joints: Compression fracture of the L1 vertebral body status post augmentation. Degenerative changes seen in the spine. No dislocation. Soft tissues: See above. Vasculature: Atherosclerotic calcifications in the abdominal aorta and branches. No abdominal aortic aneurysm. Lymph nodes: Unremarkable. No enlarged lymph nodes. IMPRESSION: 1. Fluid-filled small bowel and colon. Recommend correlation for enterocolitis. 2. Colonic diverticulosis without evidence of acute diverticulitis. 3. Small ventral hernia containing the anti-mesenteric transverse colon compatible with a Martino's hernia, unchanged from prior. No associated abnormal bowel wall thickening or fat stranding. Electronically signed by: Mitul Rome MD 11/27/22 21:43 PM Chest X-Ray 11/27/22 22:16 SINGLE VIEW CHEST CLINICAL HISTORY: Generalized abdominal pain. FINDINGS: An AP, portable, upright chest radiograph is compared to study dated 05/24/2022. The examination is degraded by portable technique and apical lordotic positioning. The heart is top normal for projection. There is bibasilar scarring/atelectasis. No airspace consolidation or large pleural effusion is identified. No pneumothorax is seen. The bony thorax is grossly intact. IMPRESSION: No active disease in the chest. ACT 112: Negative or not required by law. Electronically signed by: Carlo Zarate M.D. 11/27/2022 10:42 PM KUB X-Ray 11/28/22 09:00 KUB HISTORY: Acute abdominal pain with reported obstruction ?Obstruction COMPARISON: CT abdomen and pelvis 11/27/2022 FINDINGS: Surgical clips are noted within the abdomen. Contrast present within the urinary bladder lumen. Air-filled loops of large and small bowel small bowel measuring up to 8.3 cm. Small bowel loops measure up to 3.3 cm. 3 mm left renal calculus. No ureteral calculi. Cholecystectomy. No pneumoperitoneum or pneumatosis. No fracture. IMPRESSION: 1. Mild gaseous distention within both loops of large and small bowel suggestive of ileus versus a nonspecific enteritis/diarrheal illness. 2. No evidence of a bowel obstruction. 2. Left renal calculus. ACT 112: Negative or not required by law. The above report was generated using voice recognition software. It may contain grammatical, syntax or spelling errors. Electronically signed by: Stefano Agudelo M.D. 11/28/2022 9:18 AM Hospital Course (1) Norovirus: 62yo male with history of Crohn's disease on Entyvio infusions presenting with acute onset diffuse abdominal pain, nausea, vomiting and diarrhea. Recent admission August 2022 for SBOI/ileus and managed conservatively. CT imaging suggestive of enterocolitis. Of note, mention of Martino's hernia -- ? if temp strangulation causing issues vs other/early SBO/infectious enterocolitis --> unchanged per GI Leukocytosis on admit w/ WBC 16.9k in setting of n/v Stool studies + NOROVIRUS (reported sick this past weekend) Supportive care w/ IVF, advancement of diet and reporting less diarrhea Short rx for Zofran sent at discharge -- he is aware of symptoms of obstruction w/ his IBD and usually has no diarrhea, just n/v. Discussed to monitor for any issues/return to ER if unable to keep up with oral hydration at home. (2) Abdominal pain: Resolved w/ supportive care. 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 He is on chronic steroi ds and MTX as well. He follows with Rheumatology - last seen 11/07/22. Continued Prednisone 15mg po daily, cymbalta 60mg No hypotension/need for stress steroids during inpatient stay CK mild elevation but improved (lower than priors) -- to push oral fluids at d/c (5) HTN (hypertension): Chronic/Stable, 132/76 Continued Lisinopril (6) HLD (hyperlipidemia): Chronic DOES HAVE HX statin induced myositis Remains on zetia (7) Sleep apnea: Chronic, CPAP HS (8) Crohn's disease: Chronic GI consulted, not felt related to his IBD given positive viral stool testing To resume his Entyvio next week outpatient infusion (9) BPH loc w urin obs/LUTS: Chronic, continued finasteride, flomax DVT proph: Lovenox SQ while inpatient (10) Viral sepsis: 2nd to norovirus as above -- supportive care as outlined w/ improvement and stability for discharge Total Time Total Time Spent Total Time Spent (In Minutes): 45 Discharge Plan Discharge Items Patient Disposition: Home - Self-Care Reason For Visit: ABDOMINAL PAIN Discharge Diagnosis: Norovirus, Viral Gastroenteritis Goals: You have been hospitalized for an acute medical problem. During your stay at [facility], we have made an effort to correct the problem that brought you to the hospital while keeping you as comfortable as possible. Medications were used to bring your condition under control and your discharge instructions will include directions for any medications you should take after leaving the hospital. Please make sure you see your Primary Care Provider as part of your follow up plan. Activity: Resume your previous activity Non-emergency contact: Primary Care Provider Call non-emergency contact if: you have any medication questions, your symptoms worsen and your pain is not controlled Follow-up/Referrals: Micheal Hathaway III, CRNP [Primary Care Provider] - 12/12/22 11:20 am (APPT WITH DR MCKEON) Diet: Carb Consistent or DM2 and Heart Healthy Addtl Attending Provider Instructions: You have been hospitalized for abdominal pain, nausea, and vomiting. Imaging showed colitis. Stool studies were positive for norovirus (viral illness), which explains your symptoms. Repeat imaging was without obstruction. You were treated conservatively with IV fluids and anti-nausea medications. Gi was consulted and felt all symptoms related to viral gastroenteritis and not related to your crohns disease. We have sent some Zofran to use as needed. Your Entyvio has been confirmed by GI to have infusion for 12/06 at 7:30 AM. Please follow up with your primary care in the next 7-10 days to monitor your progress after discharge. If you notice any lack of bowel sounds, increased abdominal pain, inability to keep up with oral intake, worsening nausea, or other symptoms concerning for you, please return to the ER. It has been a pleasure being a part of the medical team providing for you while you have been in the hospital. Take care! Pending Studies at Discharge: Yes Studies:: Blood cultures -- no growth to date after 24 hours Stand-Alone Forms: My [facility], Smoking Cessation Medications and DC Order Prescriptions: New ondansetron 4 mg tablet,disintegrating 4 mg PO Q8H PRN (Reason: nausea and vomiting) Qty: 10 0RF Continued (DME) FreeStyle [place] 14 Day [place] Misc See Rx Instructions .MEDSUPPLY Qty: 1 0RF Rx Instructions: Use to test blood glucose 4 times daily lisinopril 5 mg tablet 5 mg PO QAM Qty: 90 3RF (DME) pen needle, diabetic [BD Ultra-Fine [place] Pen Needle] 32 gauge x 5/32" needle See Dose Instructions .ROUTE .MEDSUPPLY Qty: 500 1RF Rx Instructions: Use to inject insulin 4 times daily gabapentin 300 mg capsule 300 mg PO BID Qty: 180 1RF trazodone 100 mg tablet 100 mg PO HS Qty: 90 3RF (DME) FreeStyle [place] 14 Day Sensor Kit See Rx Instructions .MEDSUPPLY Qty: 2 6RF Rx Instructions: Use to test blood glucose 4 times daily vedolizumab 300 mg recon soln 300 mg IV Q8WK Qty: 1 8RF multivitamin [Daily Multi-Vitamin] tablet 1 tab PO QAM (DME) OneTouch Ultra Blue Test Strip strip See Dose Instructions .ROUTE .MEDSUPPLY Qty: 10 Rx Instructions: TWICE DAILY diphenoxylate-atropine 2.5-0.025 mg tablet 1 tab PO QID PRN (Reason: diarrhea) Qty: 360 0RF calcium carbonate-vitamin D3 [Calcium 600 + D(3)] 600 mg-10 mcg (400 unit) tablet 1 tab PO DAILY insulin glargine [Basaglar KwikPen U-100 Insulin] 100 unit/mL (3 mL) insulin pen 65 unit subcut QAM 90 Days Qty: 60 1RF (DME) pen needle, diabetic [Comfort EZ Pen [place]] 31 gauge x 3/16" needle See Rx Instructions .ROUTE .MEDSUPPLY Qty: 150 3RF Rx Instructions: Use one four times daily to inject insulin (DME) CPAP Machine Misc .Route Qty: 1 0RF Rx Instructions: 9 cmH2O, current device nonfunctional, DME aero care tamsulosin 0.4 mg capsule 0.4 mg PO HS Qty: 30 12RF Rx Instructions: Take one tablet at night time. finasteride 5 mg tablet 5 mg PO DAILY Qty: 30 12RF (DME) CPAP Supplies Misc See Rx Instructions .ROUTE .MEDSUPPLY Qty: 1 0RF Rx Instructions: CPAP supplies: headgear, hose/tubing, filters, all necessary supplies duloxetine 60 mg capsule,delayed release(DR/EC) 60 mg PO QPM (DME) FreeStyle [place] 3 Sensor Device See Rx Instructions .Route Qty: 1 5RF Rx Instructions: use to test blood glucose 3 times daily and as needed zolpidem 12.5 mg tablet,ext release multiphase 12.5 mg PO HS PRN (Reason: insomnia) Qty: 90 0RF Fiasp FlexTouch U-100 Insulin 100 unit/mL (3 mL) insulin pen See Rx Instructions subcut DAILY Qty: 90 3RF Rx Instructions: 38 units in AM, 34 units at lunch, 38 units at dinner/supper subcutaneously daily; acetaminophen [Tylenol Extra Strength] 500 mg Tablet 1,000 mg PO BID Qty: 30 0RF Rx Instructions: OTC ezetimibe 10 mg tablet 10 mg PO DAILY Rx Instructions: TAKE 1 TABLET DAILY prednisone 10 mg tablet 15 mg PO QAM Discharge Orders: Discharge Order (Routine); Ordered 11/29/22 Ordered By: Sirena Garcia Admission Data Admit Date/Time: 11/27/22 23:00 Attending Provider: Rivera Ramos Admit Provider: Beth Figueroa Primary Care Provider: Micheal Hathaway III Other Providers: Beth Figueroa ; Mitul Holm Other Interventions: Discharge Summary Assessment (RN) Last Done: 11/29/22 13:35 Supervising Physician Co-Signing Physician Notes The patient was seen by me. The chart was reviewed. Case discussed with YADI Vides. Agree with assessment and plan. He will be discharged home today, November 29 Coding Level of Care Code 68602 INP/OBS DISCH >30 MIN Diagnoses Norovirus A08.11 Abdominal pain R10.9 Diabetes E11.9 Inclusion body myositis G72.41 HTN (hypertension) I10 HLD (hyperlipidemia) E78.5 Sleep apnea G47.30 Crohn's disease K50.90 BPH loc w urin obs/LUTS N40.1 Viral sepsis A41.89; B97.89
== END 2022-11-29 14:54 | disposition home or self-care (01) | DRG 872 ==
LOC: ED 19:16 → SUATTDRO 23:00 → 3E 23:00

== ENCOUNTER 2023-11-16 09:47 | Inpatient (IN) ==
--- NOTE | 2023-11-16 09:57 | Emergency Department Note ---
History of Present Illness General Chief complaint: Fall Time Seen by Provider: 11/16/23 09:48 History of Present Illness Maximum Pain Intensity: 6 63-year-old male presents to the emergency department via EMS reportedly was coming down the stairs on his motorized chair and when he got to the bottom he fell off of the chair landing on his right side. Patient did not hit his head. Patient denies any neck pain. Patient states right shoulder pain patient denies any other injury. Patient states that the pain in the right shoulder increases with movement of the right arm. Patient was given 150 mcg of fentanyl prior to arrival. Home Medications Medication Instructions Recorded Confirmed Type multivitamin (Daily Multi-Vitamin 1 tab PO QAM 03/04/19 11/15/23 History tablet) diphenoxylate-atropine 2.5 1 tab PO QID PRN diarrhea #360 tabs 07/20/19 11/15/23 Rx mg-0.025 mg tablet trazodone 100 mg tablet 100 mg PO HS #90 tabs 05/23/22 11/15/23 Rx insulin aspart See Rx Instructions subcut DAILY 11/19/22 11/15/23 Rx (niacinamide)(U-100) 100 unit/mL(3 #90 mL mL) subcutaneous pen (Fiasp FlexTouch U-100 Insulin) duloxetine 60 mg capsule,delayed 60 mg PO QPM #90 caps 03/11/23 11/15/23 Rx release lisinopril 5 mg tablet 5 mg PO QAM #90 tabs 03/20/23 11/15/23 Rx prednisone 5 mg tablet 5 mg PO BID PRN weakness #180 tabs 05/28/23 11/15/23 Rx zoledronic acid 5 mg/100 mL in 5 ea IV YEARLY #100 mL 05/31/23 11/15/23 Rx mannitol 5 %-water intravenous piggybck (Reclast) gabapentin 300 mg capsule 300 mg PO BID #180 caps 06/24/23 11/15/23 Rx BD Ultra-Fine Marsha Pen Needle 32 #400 ea 07/05/23 10/16/23 Rx gauge x 5/32" (pen needle, diabetic) acetaminophen 500 mg tablet 1,000 mg PO BID PRN Pain 07/05/23 11/15/23 History (Tylenol Extra Strength) blood sugar diagnostic (OneTouch #10 ea 07/05/23 10/16/23 History Ultra Blue Test Strip) blood-glucose sensor (FreeStyle #1 ea 08/13/23 10/16/23 Rx [place] 3 Sensor device) zolpidem 12.5 mg tablet,extended 12.5 mg PO HS PRN insomnia #90 tabs 08/14/23 11/15/23 Rx release,multiphase calcium carbonate-vitamin D3 1 dose PO QAM 09/17/23 11/15/23 History [Caltrate 600 plus D] prednisone 10 mg tablet 15 mg PO QAM 09/17/23 11/15/23 History vedolizumab 300 mg intravenous 300 mg IV Q8WK #1 ea 10/22/23 11/15/23 Rx solution peg 3350-electrolytes 236 240 ml PO Q10M #4,000 mL 11/13/23 11/15/23 Rx gram-22.74 gram-6.74 gram-5.86 gram solution (GaviLyte-G) ezetimibe 10 mg tablet 10 mg PO QAM 11/15/23 11/15/23 History insulin glargine 100 unit/mL (3 40 unit subcut QAM 11/15/23 11/15/23 History mL) subcutaneous pen (Basaglar KwikPen U-100 Insulin) Allergies Allergy/AdvReac Type Severity Reaction Status Date / Time mercaptopurine AdvReac Severe JAUNDICE Verified 11/15/23 11:24 Past Med/Surg History Medical History Osteoporosis Neuropathy Statin myopathy Dysfunction of right eustachian tube Mixed conductive and sensorineural hearing loss of right ear with restricted hearing of left ear Chronic steroid use Wheelchair bound History of intestinal obstruction Chronic back pain Osteoarthritis Diverticulosis 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 Crohn's disease (~08/2021) History of migraine HTN (hypertension) Sleep apnea CPAP Type 1 diabetes mellitus on insulin therapy Insomnia Hypertension Hypercholesterolemia Surgical History History of biopsy muscle History of intestinal surgery History of wisdom tooth extraction History of esophagogastroduodenoscopy (EGD) History of colonoscopy History of incision and drainage (2016) I&D of sebaceous cyst right upper back History of surgery (2017) epidermal cyst excision History of cholecystectomy Family History Unknown Breast cancer Father Hearing loss Stroke Diabetes Prostate cancer Mother Hypertension Cancer Heart disease Other Allergies No family history of adverse response to anesthesia No family history of bleeding disorder Denies family history of Ovarian cancer Myocardial infarction Colorectal cancer Social History Smoking Status: Never smoker Tobacco Type: Cigarettes Age Started Using Tobacco: 14; Age Quit Using Tobacco: 17; Second Hand Exposure: No; Do You Dip or Chew Tobacco: No; Hx Alcohol Use: No Hx Substance Use: No Preferred Language: Lithuanian Communication Ability: Effective Visual Impairment: No Limitations Hearing Ability: Normal Pile Driver Required: No Beliefs That Will Affect Care: None marital status: Current Living Situation: Spouse Current Living Situation Comment: lives at home with , who is primary caregiver current occupational status: employed current occupation: security How many Children do You have: 2 Feels Safe at Home: Yes Childhood Exposure to Second-Hand Smoke: Yes Diet: regular caffeine: Yes during the past year weight has: remained stable Dental Care, Regularly: Yes Physical Activity Frequency: Does not Exercise Seatbelt Use: always Sunscreen Use: Yes Assistive Devices: CPAP, Stair Lift, Walker and Wheelchair Review of Systems A total of 10 systems reviewed and were otherwise negative Physical Exam Vital Signs Vital Signs - 24 hr 11/16/23 09:51 11/16/23 10:04 11/16/23 11:30 Temperature 36.5 C Temperature Source Oral Pulse Rate 74 70 Pulse Rate [Left Finger] 71 Respiratory Rate 25 H 20 Blood Pressure 121/78 Blood Pressure [Left Arm] 115/69 Blood Pressure Mean 92 Blood Pressure Mean [Left Arm] 84 Blood Pressure Position Lying Blood Pressure Position [Left Arm] Sitting Pulse Oximetry 98 96 Oxygen Delivery Method Room Air Sepsis Recent Fever Within 48 Hours No Sepsis New/Unexplained Change in Mental Status No Sepsis Action Taken by Nursing No Action Required GENERAL: Patient is awake alert in no acute distress patient is resting comfortably and showing no signs of anxiety EYES: The conjunctivae are clear. The pupils are round and reactive. Head exam reveals normocephalic atraumatic EARS, NOSE, MOUTH AND THROAT: The nose is without any evidence of any deformity. Mucous membranes are moist. Tongue is midline. NECK: The neck is nontender and supple. Full range of motion nontender RESPIRATORY: Normal respiratory effort is noted there is no evidence of wheezing rhonchi or rales CARDIOVASCULAR: Regular rate and rhythm noted there no murmurs rubs or gallops normal S1 normal S2. GASTROINTESTINAL: The abdomen is soft. Abdomen is nontender. PELVIS: The Pelvis is stable. No tenderness to palpation is noted. BACK: No midline tenderness or or step-off noted range of motion in flexion extension as well as rotation no signs of muscle spasm noted MUSCULOSKELETAL/EXTREMITIES: Patient has tenderness to the right proximal arm, noted clavicle, patient is neurovascularly intact distally, patient has an abrasion to the right elbow there is an area of ecchymosis to the right proximal arm SKIN: Bilateral lower extremity pitting edema and erythema there are no petechiae, pallor or cyanosis noted. NEUROLOGIC: Patient is awake alert and oriented x3 Course Reevaluation(s) Reevaluation #1: Patient was given IV Dilaudid, patient was placed in a sling. I discussed evaluation with the patient the patient's at bedside Time: 11:13 Consultations Consultation #1: [facility] Time: 11:50 Administered Medications Discontinued Medications Hydromorphone HCl (Hydromorphone Inj 1 Mg/Ml Syringe) 1 mg IV NOW STA Stop: 11/16/23 10:24 Last Admin: 11/16/23 10:35 Dose: 1 mg Documented By: REDD Hydromorphone HCl (Hydromorphone Inj 1 Mg/Ml Syringe) 1 mg IV NOW STA Stop: 11/16/23 11:27 Last Admin: 11/16/23 11:38 Dose: 1 mg Documented By: REDD Medical Decision Making Medical Records Attestation: I reviewed the patient's medical records. Home Medications Current Medication List: was personally reviewed by in Laboratory Data Attestation: I reviewed the patient's lab results. Lab results interpreted by me patient has a leukocytosis 11/16/23 10:05 11/16/23 10:05 Lab Results 11/16/23 Range/Units 10:05 WBC 19.29 H (4.8-10.8) K/ul RBC 5.39 (4.70-6.10) M/uL Hgb 15.6 (14.0-18.0) g/dl Hct 47.5 (42.0-52.0) % MCV 88.1 (80.0-100.0) fL MCH 28.9 (25.0-34.0) pg MCHC 32.8 (32.0-36.0) g/dL RDW Std Deviation 43.6 (36.4-46.3) fL RDW Coeff of Amy 13.6 (11.5-14.5) % Plt Count 281 (130-400) K/uL MPV 10.3 (9.4-12.4) fL Immature Gran % (Auto) 1.1 % Neut % (Auto) 75.6 % Lymph % (Auto) 13.8 % [place] % (Auto) 8.1 % Eos % (Auto) 1.0 % Baso % (Auto) 0.4 % Neut # (Auto) 14.56 H (1.40-6.50) K/uL Lymph # (Auto) 2.67 (1.20-3.40) K/uL [place] # (Auto) 1.57 H (0.11-0.59) K/uL Eos # (Auto) 0.20 (0.00-0.50) K/uL Baso # (Auto) 0.08 (0.00-0.20) K/uL Immature Gran # (Auto) 0.21 H (0.01-0.20) K/uL PT 10.7 (9.0-12.0) Seconds INR 1.0 (0.9-1.1) Sodium 142 (136-145) mmol/L Potassium 3.6 (3.5-5.1) mmol/L Chloride 103 (98-107) mmol/L Carbon Dioxide 33 H (21-32) mmol/L Anion Gap 6 (3-11) BUN 12 (6-23) mg/dl Creatinine 0.36 L (0.6-1.4) mg/dl Est Cr Clr Drug Dosing 242.2 ml/min Est GFR ( Amer) > 150.0 ml/min Est GFR (Non-Af Amer) 132.0 ml/min BUN/Creatinine Ratio 33.3 H (10-20) Glucose 128 H (70-99(Fasting)) mg/dl Calcium 8.9 (8.6-10.3) mg/dl Magnesium 1.9 (1.7-2.4) mg/dl Total Bilirubin 0.7 (0.2-1.0) mg/dl AST 29 (13-39) U/L ALT 38 (7-52) U/L Alkaline Phosphatase 59 (34-104) U/L Total Protein 5.8 L (6.0-8.3) gm/dl Albumin 3.7 (3.4-5.0) gm/dl Globulin 2.1 L (2.5-4.0) gm/dl Albumin/Globulin Ratio 1.8 (0.9-2) Imaging Data Attestation: I personally reviewed and interpreted this imaging study as follows: My Impression: Right arm x-ray interpreted by me positive for comminuted fracture of the proximal humerus Radiologist's Impression: Humerus X-Ray 11/16/23 09:55 XR humerus RT 2V CLINICAL HISTORY: Right arm pain following fall. COMPARISON: Right elbow radiographs June 06, 2022. FINDINGS: There is an acute oblique displaced right humeral neck fracture. Fracture is displaced 3.3 cm. Fracture extends into the humeral head. Fracture is mildly comminuted. Distal right humeral fracture radiographs June 06, 2022 has healed. Alignment of the right acromioclavicular and glenohumeral joints is anatomic. IMPRESSION: Acute displaced comminuted right humeral neck fracture which extends into the humeral head. ACT 112: Negative or not required by law. Electronically signed by: Dilip Barahona M.D. 11/16/2023 10:21 AM ECG Data Attestation: I personally reviewed and interpreted this ECG as follows: Additional Comments: EKG interpreted by me normal sinus rhythm rate of 71, left ventricular hypertrophy, no obvious ST segment elevation or depression MDM Narrative Medical decision making differential diagnosis includes sprain strain contusion fracture dislocation Plan is to x-ray right proximal humerus Spoke with the patient's who was at bedside at 10:30 AM. Patient is unable to stay at home as he has to use both arms to use the chairlift and their house is currently undergoing repairs and he does not have a toilet in the area in which she would needed. Escalation of care occurred as the discussion with the patient the patient's at bedside made it apparently obvious that the patient would not be able to care for himself at home. Shared medical decision making the patient will be admitted to the hospital Case was discussed with the [facility] hospitalist for admission. Patient will be admitted for right proximal humeral fracture and inability to care for himself at home due to his current medical conditions. A sling was ordered and the patient was unable to tolerate a sling for the right upper extremity. Impression & Plan Proximal humeral fracture, Fall Discharge Plan Visit Data Chief Complaint: Fall ED Provider: Kendell Miranda Discharge Problem: Proximal humeral fracture, Fall Patient Disposition: Admitted As Inpatient Forms Stand Alone Forms: My [facility] Prescriptions Prescriptions: No Action trazodone 100 mg tablet 100 mg PO HS Qty: 90 3RF duloxetine 60 mg capsule,delayed release(DR/EC) 60 mg PO QPM Qty: 90 3RF lisinopril 5 mg tablet 5 mg PO QAM Qty: 90 1RF zoledronic [id number] [Reclast] 5 mg/100 mL piggyback 5 ea IV YEARLY Qty: 100 0RF Rx Instructions: Schedule 06/12/23 @ 1230 gabapentin 300 mg capsule 300 mg PO BID Qty: 180 3RF (DME) [employer] [place] 3 Sensor Device See Rx Instructions .Route Qty: 1 12RF Rx Instructions: use to test blood glucose 3 times daily and as needed zolpidem 12.5 mg tablet,ext release multiphase 12.5 mg PO HS PRN (Reason: insomnia) Qty: 90 0RF vedolizumab 300 mg recon soln 300 mg IV Q8WK Qty: 1 8RF peg 3350-electrolytes [GaviLyte-G] 236-22.74-6.74 -5.86 gram recon soln 240 ml PO Q10M Qty: 4000 0RF Rx Instructions: until fecal effluent is clear multivitamin [Daily Multi-Vitamin] tablet 1 tab PO QAM (DME) OneTouch Ultra Blue Test Strip Strip See Rx Instructions .ROUTE .MEDSUPPLY Qty: 10 Rx Instructions: Test blood sugar once daily PRN diphenoxylate-atropine 2.5-0.025 mg tablet 1 tab PO QID PRN (Reason: diarrhea) Qty: 360 0RF prednisone 10 mg tablet 15 mg PO QAM calcium carbonate-vitamin D3 [Caltrate 600 plus D] 1 dose PO QAM prednisone 5 mg tablet 5 mg PO BID PRN (Reason: weakness) Qty: 180 3RF Rx Instructions: Take a second 5 mg dose as needed for increased weakness Fiasp FlexTouch U-100 Insulin 100 unit/mL (3 mL) insulin pen See Rx Instructions subcut DAILY Qty: 90 3RF Rx Instructions: 38 units in AM, 34 units at lunch, 38 units at dinner/supper subcutaneously daily; acetaminophen [Tylenol Extra Strength] 500 mg tablet 1,000 mg PO BID PRN (Reason: Pain) Rx Instructions: OTC (DME) pen needle, diabetic [BD Ultra-Fine Marsha Pen Needle] 32 gauge x 5/32" needle See Rx Instructions .Route Qty: 400 3RF Rx Instructions: Inject insulin four times daily ezetimibe 10 mg tablet 10 mg PO QAM Rx Instructions: TAKE 1 TABLET DAILY insulin glargine [Basaglar KwikPen U-100 Insulin] 100 unit/mL (3 mL) insulin pen 40 unit subcut QAM Referrals Referrals: Micheal Hathaway III, CRNP [Primary Care Provider] - Discharge Problem: Proximal humeral fracture Qualifiers: Encounter type: initial encounter Fracture type: closed Fracture morphology: o ther fracture Fracture alignment: displaced Laterality: right Qualified Code(s): S42.291A - Other displaced fracture of upper end of right humerus, initial encounter for closed fracture Fall Qualifiers: Encounter type: initial encounter Qualified Code(s): W19.XXXA - Unspecified fall, initial encounter
--- NOTE | 2023-11-16 10:24 | XRay Report ---
XR humerus RT 2V CLINICAL HISTORY: Right arm pain following fall. COMPARISON: Right elbow radiographs June 06, 2022. FINDINGS: There is an acute oblique displaced right humeral neck fracture. Fracture is displaced 3.3 cm. Fracture extends into the humeral head. Fracture is mildly comminuted. Distal right humeral frac ture radiographs June 06, 2022 has healed. Alignment of the right acromioclavicular and glenohumer al joints is anatomic. IMPRESSION: Acute displaced comminuted right humeral neck fracture which extends into the humeral hea d. ACT 112: Negative or not required by law. Electronically signed by: Dilip Barahona M.D. 11/16/2023 10:21 AM
[2023-11-16] MEDS: HYDROmorphone INJ 1 MG/ML SYRINGE IV STA ×2 (10:35→11:38)
[2023-11-16 10:42] LABS: Basophils # (auto) 0.08 K/uL (0.00-0.20); Basophils % (auto) 0.4 %; Hematocrit (blood only) 47.5 % (42.0-52.0); Hemoglobin 15.6 g/dl (14.0-18.0); Immature Granulocytes # (auto) 0.21 K/uL (0.01-0.20); Immature Granulocytes % (auto) 1.1 %; Lymphocytes # (auto) 2.67 K/uL (1.20-3.40); Lymphocytes % (auto) 13.8 %; Mean Corpuscular Hemoglobin 28.9 pg (25.0-34.0); Mean Corpuscular Hgb Conc 32.8 g/dL (32.0-36.0); Mean Corpuscular Volume 88.1 fL (80.0-100.0); Mean Platelet Volume 10.3 fL (9.4-12.4); Monocytes # (auto) 1.57 K/uL (0.11-0.59); Monocytes % (auto) 8.1 %; Neutrophils # (auto) 14.56 K/uL (1.40-6.50); Neutrophils % (auto) 75.6 %; Platelet Count 281 K/uL (130-400); RDW Coefficient of Variation 13.6 % (11.5-14.5); RDW Standard Deviation 43.6 fL (36.4-46.3); Red Blood Count 5.39 M/uL (4.70-6.10); White Blood Count 19.29 K/ul (4.8-10.8)
[2023-11-16 11:01] LABS: Alanine Aminotransferase 38 U/L (7-52); Albumin Globulin Ratio 1.8 (0.9-2); Albumin Level 3.7 gm/dl (3.4-5.0); Alkaline Phosphatase 59 U/L (34-104); Anion Gap 6 (3-11); Aspartate Aminotransferase 29 U/L (13-39); BUN Creatinine Ratio 33.3 (10-20); Bilirubin,Total 0.7 mg/dl (0.2-1.0); Blood Urea Nitrogen 12 mg/dl (6-23); Calcium 8.9 mg/dl (8.6-10.3); Carbon Dioxide 33 mmol/L (21-32); Chloride 103 mmol/L (98-107); Creatinine Clr Calc Pharmacy 242.2 ml/min; Est GFR (African American) > 150.0 ml/min; Globulin 2.1 gm/dl (2.5-4.0); Glucose 128 mg/dl (70-99(Fasting)); Magnesium 1.9 mg/dl (1.7-2.4); Potassium 3.6 mmol/L (3.5-5.1); Sodium 142 mmol/L (136-145); Total Protein 5.8 gm/dl (6.0-8.3)
[2023-11-16 11:12] LABS: Prothrombin Time 10.7 Seconds (9.0-12.0)
--- NOTE | 2023-11-16 11:20 | History & Physical Report ---
Date of Service November 16, 2023 Assessment & Plan (1) Proximal humeral fracture: Plan: -Admit to med/surge on pulse oximetry -Currently stable but with uncontrolled RUE pain -Presented to the ED after sustaining a fall out of his motorized stair chair due to sliding, fell down the last 2 steps, landed on right shoulder -Did not hit his head or lose consciousness -Only complaints at this time is right shoulder pain -Patient is neurovascularly intact on exam -S/P 1mg IV dilaudid in the ED -Nursing staff is working on placing the patient's RUE in a sling immobilizer at this time -Orthopedic surgery has been consulted and will follow, requested obtaining xrays of the right shoulder -Will obtain CXR and xray of the right shoulder min 2-view now -Q$H neurovascular checks ordered -Pain control with scheduled tylenol and PRN dilaudid -If current pain regimen is unsuccessful can also try muscle relaxers -SQ lovenox for DVT PPX -HH/DMI diet -AM CBC, BMP, mag, PT/INR (2) Fall: Plan: -Slid out of his stair chair this am -States he was unable to stop himself from sliding due to chronic BL LE weakness from his myositis -No other acute trauma on exam -PT/OT consults placed as patient will need rehab placement on discharge -Rest of care per proximal humeral fracture plan (3) Leukocytosis: Plan: -Noted to have a leukocytosis of 19 with neutrophil predominance of 14 -Only possible infectious sources per his hx is recent diarrhea -His Leukocytosis could be driven by his chronic prednisone use and acute fracture -Will obtain CXR, UA, and stool studies for further evaluation -Has been afebrile, hemodynamically stable, and non-toxic appearing -Will hold abx for now and obtain blood cultures -Monitor fever curve and follow infectious workup (4) 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, right eye: Plan: -Monitor BSG ACHS, goal is 110-160 with is chronic steroid use -Normally takes 40 units SQ lantus in the AM, will convert to 15 units BID for now -Start CF of 50 and CR 15 -DMI/HH diet -Pharmacy glycemic consult placed (5) Lymphedema: Plan: -At baseline per patient and -Start BL SCD's -Elevate legs as needed (6) BPH loc w urin obs/LUTS: Plan: -Not on medical treatment at this time -Monitor for retention (7) Inclusion body myositis: Plan: -Continue chronic prednisone of 15 mg daily -If he requires surgical intervention would likely need stress dosed steroids (8) Sleep apnea: Plan: -HS CPAP ordered (9) Hypercholesterolemia: Plan: -Continue statin Plan The patient was discussed with Dr. Ma at the time of the admission History of Present Illness Chief Complaint: fall, right arm pain Primary Care Provider: Micheal Hathaway, III, ADRIÁN Edmundo Rodrigues is a 63yo male with history of Crohn's disease, HTN, HLP, DM, BALTAZAR on HS CPAP, and inclusion body myositis on chronic prednisone who presented to the [facility] ED on 11/16/23 after sustaining a fall off his motorized stair chair. Per the ED staff, the patient was on his motorized stair chair, when it reached the bottom of their steps he fell out of the chair, landing on his right side. He did not hit his head or lose consciousness. EMS was called and gave him 150 mcg of IV Fentanyl. He remained stable in the ED. Labs were significant for a leukocytosis of 19 with neutrophile predominance of 14. Xray of the right arm was read as "Acute displaced comminuted right humeral neck fracture which extends into the humeral head.". The patient was given 1 mg IV dilaudid and his right arm was placed in a sling. We were asked to admit the patient as he will need rehab placement on discharge as his will not be able to safely care for him at home at this time. At the time of the exam the patient was sitting up in bed in significant pain due to his right humerus fracture, his is bedside; history was obtained from both. He has poor baseline ambulatory status due to his myositis. Confirms that he slid out of his motorized stair chair this am, fell down the last 2 steps and landed on his right shoulder. Confirms he did not hit his head or lose consciousness, confirms this. Only pain at this time is his right arm pain. Denies recent fever, chills, chest pain, SOB, abd pain, nausea, vomiting, dysuria, hematuria, melena, worsening LE swelling. When asked, he states that he has had multiple episodes of non-bloody diarrhea over the past 3 days. His confirms that with his current limited functional status she will be unable to safely care for him and rehab will be needed. He is a full code and his would make medical decisions for him if he cannot make them himself. Please refer to Dr. Ma's attestation for any changes to the treatment plan Allergies Allergy/AdvReac Type Severity Reaction Status Date / Time mercaptopurine AdvReac Severe JAUNDICE Verified 11/16/23 12:19 Home Medications Medication Instructions Recorded Confirmed Type multivitamin (Daily Multi-Vitamin 1 tab PO QAM 03/04/19 11/16/23 History tablet) diphenoxylate-atropine 2.5 1 tab PO QID PRN diarrhea #360 tabs 07/20/19 11/16/23 Rx mg-0.025 mg tablet trazodone 100 mg tablet 100 mg PO HS #90 tabs 05/23/22 11/16/23 Rx insulin aspart See Rx Instructions subcut DAILY 11/19/22 11/16/23 Rx (niacinamide)(U-100) 100 unit/mL(3 #90 mL mL) subcutaneous pen (Fiasp FlexTouch U-100 Insulin) duloxetine 60 mg capsule,delayed 60 mg PO QPM #90 caps 03/11/23 11/16/23 Rx release lisinopril 5 mg tablet 5 mg PO QAM #90 tabs 03/20/23 11/16/23 Rx zoledronic acid 5 mg/100 mL in 5 ea IV YEARLY #100 mL 05/31/23 11/16/23 Rx mannitol 5 %-water intravenous piggybck (Reclast) gabapentin 300 mg capsule 300 mg PO BID #180 caps 06/24/23 11/16/23 Rx BD Ultra-Fine Marsha Pen Needle 32 #400 ea 07/05/23 10/16/23 Rx gauge x 5/32" (pen needle, diabetic) acetaminophen 500 mg tablet 1,000 mg PO BID PRN Pain 07/05/23 11/16/23 History (Tylenol Extra Strength) blood sugar diagnostic (OneTouch #10 ea 07/05/23 10/16/23 History Ultra Blue Test Strip) blood-glucose sensor (FreeStyle #1 ea 08/13/23 10/16/23 Rx [place] 3 Sensor device) prednisone 10 mg tablet 15 mg PO QAM 09/17/23 11/16/23 History vedolizumab 300 mg intravenous 300 mg IV Q8WK #1 ea 10/22/23 11/16/23 Rx solution ezetimibe 10 mg tablet 10 mg PO QAM 11/15/23 11/16/23 History insulin glargine 100 unit/mL (3 40 unit subcut QAM 11/15/23 11/16/23 History mL) subcutaneous pen (Basaglar KwikPen U-100 Insulin) calcium carbonate 600 mg-vitamin 1 tab PO QAM 11/16/23 11/16/23 History D3 20 mcg (800 unit) chewable tablet (Caltrate 600 plus D) peg 3350-electrolytes 236 0 ml PO Q10M 11/16/23 11/16/23 History gram-22.74 gram-6.74 gram-5.86 gram solution (GaviLyte-G) prednisone 5 mg tablet 5 mg PO UD PRN weakness 11/16/23 11/16/23 History zolpidem 12.5 mg tablet,extended 12.5 mg PO HS insomnia 11/16/23 11/16/23 History release,multiphase Past Med/Surg History Medical History Osteoporosis Neuropathy Statin myopathy Dysfunction of right eustachian tube Mixed conductive and sensorineural hearing loss of right ear with restricted hearing of left ear Chronic steroid use Wheelchair bound History of intestinal obstruction Chronic back pain Osteoarthritis Diverticulosis 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 Crohn's disease (~08/2021) History of migraine HTN (hypertension) Sleep apnea CPAP Type 1 diabetes mellitus on insulin therapy Insomnia Hypertension Hypercholesterolemia Surgical History History of biopsy muscle History of intestinal surgery History of wisdom tooth extraction History of esophagogastroduodenoscopy (EGD) History of colonoscopy History of incision and drainage (2016) I&D of sebaceous cyst right upper back History of surgery (2017) epidermal cyst excision History of cholecystectomy Family History Unknown Breast cancer Father Hearing loss Stroke Diabetes Prostate cancer Mother Hypertension Cancer Heart disease Other Allergies No family history of adverse response to anesthesia No family history of bleeding disorder Denies family history of Ovarian cancer Myocardial infarction Colorectal cancer Social History Smoking Status: Never smoker Tobacco Type: Cigarettes Age Started Using Tobacco: 14; Age Quit Using Tobacco: 17; Second Hand Exposure: No; Do You Dip or Chew Tobacco: No; Hx Alcohol Use: No Hx Substance Use: No Preferred Language: Italian Communication Ability: Effective Visual Impairment: No Limitations Hearing Ability: Normal Dental Laboratory Assistant Required: No Beliefs That Will Affect Care: None marital status: Current Living Situation: Spouse Current Living Situation Comment: Lives with spouse- Jess current occupational status: employed current occupation: security How many Children do You have: 2 Other Information That Helps Us Care for You: No Feels Safe at Home: Yes Safety Concerns: Feels Safe At This Time Childhood Exposure to Second-Hand Smoke: Yes Diet: regular caffeine: Yes during the past year weight has: remained stable Dental Care, Regularly: Yes Physical Activity Frequency: Does not Exercise Seatbelt Use: always Sunscreen Use: Yes Assistive Devices: Glasses, Stair Lift and Wheelchair Assistive Devices Comment: reading glasses Physical Exam Physical Exam: Physical Exam: General: In moderate distress due to pain, stated age, well-nourished, non- toxic appearing HEENT: Normocephalic, atraumatic, no scleral icterus, pupils around round, symmetrical, and reactive to light, moist mucus membranes, trachea midline, no thyromegaly Chest/Pulm: No respiratory distress, symmetrical chest expansion, clear breath sounds throughout Cardiac: RRR, no murmurs noted Abdomen: Negative for ascites and bruising, normoactive bowel sounds, soft, non-tender to palpation throughout Musculoskeletal: Patient currently holding right arm across his chest, bruising noted on the superior right shoulder, intact sensation and motor function in the BL hands, small skin tear on the right posterior elbow without s igns of bleeding, otherwise no acute trauma on exam Extremities: Radial, dorsalis pedis, and posterior tibial pulses are intact and symmetrical, chronic, severe BL LE swelling is at baseline per patient and Skin: As described above Neuro: Alert and oriented to person, place, month, year, and president, no focal defects, no tremors noted Psych: Moderate distress due to pain but polite, calm and cooperative during the exam Results & Data Results & Data Vital Signs (Past 12 Hours) Vital Signs Temp Pulse Resp BP Pulse Ox O2 Del Method 11/16/23 10:04 70 11/16/23 09:51 36.5 C 74 25 H 121/78 98 Room Air Laboratory Results Abnormal lab results 11/16/23 Range/Units 10:05 WBC 19.29 H (4.8-10.8) K/ul Neut # (Auto) 14.56 H (1.40-6.50) K/uL [place] # (Auto) 1.57 H (0.11-0.59) K/uL Immature Gran # (Auto) 0.21 H (0.01-0.20) K/uL Carbon Dioxide 33 H (21-32) mmol/L Creatinine 0.36 L (0.6-1.4) mg/dl BUN/Creatinine Ratio 33.3 H (10-20) Glucose 128 H (70-99(Fasting)) mg/dl Total Protein 5.8 L (6.0-8.3) gm/dl Globulin 2.1 L (2.5-4.0) gm/dl Diagnostic Findings Humerus X-Ray 11/16/23 09:55 XR humerus RT 2V CLINICAL HISTORY: Right arm pain following fall. COMPARISON: Right elbow radiographs June 06, 2022. FINDINGS: There is an acute oblique displaced right humeral neck fracture. Fracture is displaced 3.3 cm. Fracture extends into the humeral head. Fracture is mildly comminuted. Distal right humeral fracture radiographs June 06, 2022 has healed. Alignment of the right acromioclavicular and glenohumeral joints is anatomic. IMPRESSION: Acute displaced comminuted right humeral neck fracture which extends into the humeral head. ACT 112: Negative or not required by law. Electronically signed by: Dilip Barahona M.D. 11/16/2023 10:21 AM ECG Additional Comments: Normal sinus rhythm Minimal voltage criteria for LVH, may be normal variant ( R in aVL ) Borderline ECG When compared with ECG of 28-NOV-2022 05:33, No significant change was found Code Status & VTE Plan Code Status Full code VTE Prophylaxis Plan VTE Prophylaxis will be ordered: Yes Supervising Physician Co-Signing Physician Notes I personally saw and examined the patient. I verified all ross points and agree with Joe Obrien PA-C with the following exceptions and/or additions: 63 year old male presents to the ER after sliding off chair, not unusual for him with his myositis and does not usual adjust his steroid dosing. Intermittent diarrhea also not unusual for him. Left shoulder pain since fall. O/E A&Ox3, HS RRR, no murmurs, Chest CTAB, Abdo SNT, right radial pulse normal, cap refill normal, ecchymosis over right shoulder A/P Humeral neck fracture - appreciate orthopedics review - discussed with Dr Lopez, possibly for surgery tomorrow, elevated WBC but this isn't unusual for him whenever he gets any degree of medical problem such as prior SBO. Diarrhea not unusual for him and no other source of infection found. Stress dose steroids planned perioperatively Diarrhea - stool PCR pending Fall - slid off chair, not unusual with this myositis, will need PT/OT post operatively PG Care Time/CCT Total # of Minutes Spent Total Time Spent with Patient: Total time spent is greater than 50% in coordination of care (as documented) at patient's floor/unit and/or counseling patient: Coding [place] [address] INT INP/OBS CARE 3/75MIN Patient Type Established Medical Decision Making High Complexity Diagnoses Proximal humeral fracture S42.291A Encounter type: initial encounter Fracture alignment: displaced Fracture morphology: other fracture Fracture type: closed Laterality: right Fall W19.XXXA Encounter type: initial encounter Leukocytosis D72.829 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
[2023-11-16] MEDS ORDERED: PHARMACY GLYCEMIC MGMT CONSULT PRN (11:45)
[2023-11-16] MEDS ORDERED: GLUCAGON FOR INJ 1 MG VIAL SQ PRN (11:45)
[2023-11-16] MEDS ORDERED: GLUCOSE 10 TAB/TUBE PO PRN (11:45)
[2023-11-16] MEDS ORDERED: GLUCOSE 40% GEL 15 GM TUBE PO PRN (11:45)
--- NOTE | 2023-11-16 12:07 | XRay Report ---
XR chest 1V portable CLINICAL HISTORY: fall, elevated WBC, monitor for infection/trauma COMPARISON STUDY: Chest radiograph November 27, 2022. FINDINGS: Lung volumes are unchanged. There is a trace right pleural effusion. No pneumothorax. No co nsolidation is identified to suggest pneumonia. Cardiomegaly is unchanged. There is no evidence for p ulmonary edema. Gaseous distention of the visualized portion of the stomach is unchanged. IMPRESSION: 1. No consolidation to suggest pneumonia. 2. Trace right pleural effusion. ACT 112: Negative or not required by law. Electronically signed by: Dilip Barahona M.D. 11/16/2023 12:06 PM
--- NOTE | 2023-11-16 12:21 | XRay Report ---
XR shoulder RT min 2V routine CLINICAL HISTORY: fall, right humerus fracture COMPARISON: Right humerus radiographs performed earlier today. FINDINGS: Alignment of the right acromioclavicular and glenohumeral joints is anatomic. There is an acute displaced oblique right humeral neck fracture which extends into the humeral head. Fracture is displaced 2.7 cm. 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 IMPRESSION: Acute displaced oblique right humeral neck fracture which extends into the humeral head. ACT 112: Negative or not required by law. Electronically signed by: Dilip Barahona M.D. 11/16/2023 12:20 PM
[2023-11-16] MEDS: ACETAMINOPHEN 500 MG TAB PO STA (12:35)
[2023-11-16] MEDS: BACLOFEN 10 MG TAB PO STA (12:35)
--- NOTE | 2023-11-16 12:54 | Pharmacy Report ---
Pharmacy Glycemic Short Note 2 - Date of Service November 16, 2023 - Glycemic Short BSG Results (Last 24 hours): 11/16/23 10:05 Glucose 128 H OUTPATIENT ANTIDIABETIC REGIMEN: * Fiasp 38 units with breakfast, 34 units with lunch, 38 units with dinner * Basaglar 40 units SQ AM * A1c 7.4% 06/20/23, updated A1c ordered ASSESSMENT: * 63yo M with history of Crohn's disease, HTN, HLP, Type 1 DM, BALTAZAR on HS CPAP, and inclusion body myositis on chronic prednisone (15mg/day) who presented to the [facility] ED on 11/16/23 after sustaining a fall off his motorized stair chair resulting in Humerus fracture. Pharmacy consulted for glycemic control. * Will start patient on basal bolus insulin and titrate to goal blood sugar. Patient euglycemic on admission, BSG 123mg/dl. 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
--- NOTE | 2023-11-16 13:07 | Orthopedic Consultation ---
Date of Consultation November 16, 2023 Assessment & Plan (1) Proximal humeral fracture: Patient has a right proximal humeral neck fracture with displacement. It is closed. I did discuss findings with him today. He understands the injury. Would recommend no movement of the right shoulder at this time. Will discuss findings with Dr. Lopez. Will plan to obtain a CT scan of his right shoulder to coating machine operator helper in further surgical planning and decision making. Maintain nonweightbearing of the right upper extremity. Sling for comfort but may change that to a collar and cuff in the future. He can do active range of motion of his right hand and fingers, wrist forearm and elbow as tolerated. No use of the right arm. May be out of bed to a chair as tolerated. May have regular diet for the time being until a treatment decision is made. Patient understands and agrees with the plan. Will continue to follow. Thank you for this consultation. Approximately 35 minutes were spent reviewing the patient's chart, obtaining a history and physical exam and discussing findings with Dr. Lopez regarding julissa atment plan. Supervising Physician Co-Signing Physician Notes I, Dr. Lopez, saw and examined the patient. I discussed the management with my PA. I reviewed my PAs note and agree with the documented findings and attest to completing the substantive portion of medical decision making and plan of care I developed. I, Dr. Lopez, spent 60 minutes reviewing the chart, reading the imaging, evaluating the patient, discussing care plan with the patient, primary service, and PA. Also included in that time arranging for add-on to OR tomorrow, placing orders, documentation, arranging implants and instruments available PE: Neurovascularly unchanged for patient, with diminished sensation, limited finger motion. BCR < 2sec. RIGHT SHOULDER CT WITHOUT CONTRAST CLINICAL HISTORY: Right proximal humerus fracture. COMPARISON STUDY: Right shoulder and humerus radiographs performed earlier today. TECHNIQUE: Axial images of the right shoulder were obtained without IV contrast. Sagittal and coronal reconstructions were viewed. Automated exposure control was utilized for the study. A dose lowering technique was utilized adhering to the principles of ALARA. FINDINGS: There is an acute oblique right humeral neck and head fracture. The fracture is displaced 2 cm. Fracture is impacted and mildly comminuted. Associated glenohumeral joint effusion is noted with adjacent hemorrhage. No additional acute fractures are noted. Glenohumeral alignment is anatomic. Posterior inferior glenoid is blunted but this does not appear acute. AC joint is intact. There are no osseous lesions. No acute fractures are identified within visualized right ribs. Extensive muscular atrophy is noted. IMPRESSION: 1. Acute comminuted displaced impacted right humeral neck and head fracture, as described above. Associated right glenohumeral joint effusion with adjacent hemorrhage. 2. Anatomic alignment of the right glenohumeral joint. 3. No additional acute fractures within the right shoulder. 4. Muscular atrophy. ACT 112: Negative or not required by law. Electronically signed by: Dilip Barahona M.D. 11/16/2023 2:32 PM IMPRESSION: Right Proximal Humerus fracture, angulated, impacted, closed PLAN: Discussed options of conservative vs surgical intervention as well as the risks and benefits of both. As he needs his RUE to aid in transfers recommended ORIF. Risks of surgery include but not limited to: infection, bleeding, nerve damage, stiffness, malunion, non-union, continued pain, DVT, heart attack, stroke, . Patient agreed to proceed with surgery and informed consent signed for ORIF Right Proximal Humerus. NPO after midnight Discussed with primary service and they will hold Lovenox, start IVF at [place], and stress dose of steroids prior to surgery. Ancef on-call to OR. Continue with sling and ice. Continue are per primary service. History of Present Illness Reason for Consultation: Right proximal humerus fracture Requesting Physician: Maki Lopez MD Attending Physician: Geoffrey Ma MD History of Present Illness Patient is a pleasant 63-year-old male who is brought to the emergency room aft er sustaining an injury to his right shoulder at home. He states he was coming down his Stair lift on his stairs and fell when he got to the bottom and landed directly on the right side, hitting his right shoulder. He denies any other injuries. Patient states he is nonambulatory but is able to stand to pivot to a chair. He gets around in his home in a wheelchair. He works full-time as a programming security tech. He is right-hand dominant. Denies any numbness or tingling in his right upper extremity. Denies any other injuries at the time of his fall. He does have a lot of medical conditions which include type 1 diabetes, diabetic retinopathy, chronic bilateral lower extremity edema, history of cellulitis, inclusion body myositis, vitamin D deficiency, Crohn's disease with long-term current use of systemic steroids, hypertension, osteoporosis and hypercholesterolemia. While in the emergency room x-rays were obtained of his right shoulder and he was found to have a displaced right proximal humeral neck fracture. He is currently being admitted by the hospitalist service. Dr. Lopez was consulted for evaluation and treatment of his fracture. Allergies Allergy/AdvReac Type Severity Reaction Status Date / Time mercaptopurine AdvReac Severe JAUNDICE Verified 11/16/23 12:19 Home Medications Medication Instructions Recorded Confirmed Type multivitamin (Daily Multi-Vitamin 1 tab PO QAM 03/04/19 11/16/23 History tablet) diphenoxylate-atropine 2.5 1 tab PO QID PRN diarrhea #360 tabs 07/20/19 11/16/23 Rx mg-0.025 mg tablet trazodone 100 mg tablet 100 mg PO HS #90 tabs 05/23/22 11/16/23 Rx insulin aspart See Rx Instructions subcut DAILY 11/19/22 11/16/23 Rx (niacinamide)(U-100) 100 unit/mL(3 #90 mL mL) subcutaneous pen (Fiasp FlexTouch U-100 Insulin) duloxetine 60 mg capsule,delayed 60 mg PO QPM #90 caps 03/11/23 11/16/23 Rx release lisinopril 5 mg tablet 5 mg PO QAM #90 tabs 03/20/23 11/16/23 Rx zoledronic acid 5 mg/100 mL in 5 ea IV YEARLY #100 mL 05/31/23 11/16/23 Rx mannitol 5 %-water intravenous piggybck (Reclast) gabapentin 300 mg capsule 300 mg PO BID #180 caps 06/24/23 11/16/23 Rx BD Ultra-Fine Marsha Pen Needle 32 #400 ea 07/05/23 10/16/23 Rx gauge x 5/32" (pen needle, diabetic) acetaminophen 500 mg tablet 1,000 mg PO BID PRN Pain 07/05/23 11/16/23 History (Tylenol Extra Strength) blood sugar diagnostic (OneTouch #10 ea 07/05/23 10/16/23 History Ultra Blue Test Strip) blood-glucose sensor (FreeStyle #1 ea 08/13/23 10/16/23 Rx [place] 3 Sensor device) prednisone 10 mg tablet 15 mg PO QAM 09/17/23 11/16/23 History vedolizumab 300 mg intravenous 300 mg IV Q8WK #1 ea 10/22/23 11/16/23 Rx solution ezetimibe 10 mg tablet 10 mg PO QAM 11/15/23 11/16/23 History insulin glargine 100 unit/mL (3 40 unit subcut QAM 11/15/23 11/16/23 History mL) subcutaneous pen (Basaglar KwikPen U-100 Insulin) calcium carbonate 600 mg-vitamin 1 tab PO QAM 11/16/23 11/16/23 History D3 20 mcg (800 unit) chewable tablet (Caltrate 600 plus D) peg 3350-electrolytes 236 0 ml PO Q10M 11/16/23 11/16/23 History gram-22.74 gram-6.74 gram-5.86 gram solution (GaviLyte-G) prednisone 5 mg tablet 5 mg PO UD PRN weakness 11/16/23 11/16/23 History zolpidem 12.5 mg tablet,extended 12.5 mg PO HS insomnia 11/16/23 11/16/23 History release,multiphase Patient History Medical History Osteoporosis Neuropathy Statin myopathy Dysfunction of right eustachian tube Mixed conductive and sensorineural hearing loss of right ear with restricted hearing of left ear Chronic steroid use Wheelchair bound History of intestinal obstruction Chronic back pain Osteoarthritis Diverticulosis 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 Crohn's disease (~08/2021) History of migraine HTN (hypertension) Sleep apnea CPAP Type 1 diabetes mellitus on insulin therapy Insomnia Hypertension Hypercholesterolemia Surgical History History of biopsy muscle History of intestinal surgery History of wisdom tooth extraction History of esophagogastroduodenoscopy (EGD) History of colonoscopy History of incision and drainage (2016) I&D of sebaceous cyst right upper back History of surgery (2017) epidermal cyst excision History of cholecystectomy Family History Unknown Breast cancer Father Hearing loss Stroke Diabetes Prostate cancer Mother Hypertension Cancer Heart disease Other Allergies No family history of adverse response to anesthesia No family history of bleeding disorder Denies family history of Ovarian cancer Myocardial infarction Colorectal cancer Social History Smoking Status: Never smoker Tobacco Type: Cigarettes Age Started Using Tobacco: 14; Age Quit Using Tobacco: 17; Second Hand Exposure: No; Do You Dip or Chew Tobacco: No; Hx Alcohol Use: No Hx Substance Use: No Preferred Language: Faroese Communication Ability: Effective Visual Impairment: No Limitations Hearing Ability: Normal Behavioral Health Consultant Required: No Beliefs That Will Affect Care: None marital status: Current Living Situation: Spouse Current Living Situation Comment: Lives with spouse- Jess current occupational status: employed current occupation: security How many Children do You have: 2 Other Information That Helps Us Care for You: No Feels Safe at Home: Yes Safety Concerns: Feels Safe At This Time Childhood Exposure to Second-Hand Smoke: Yes Diet: regular caffeine: Yes during the past year weight has: remained stable Dental Care, Regularly: Yes Physical Activity Frequency: Does not Exercise Seatbelt Use: always Sunscreen Use: Yes Assistive Devices: Glasses, Stair Lift and Wheelchair Assistive Devices Comment: reading glasses Review of Systems Review of Systems: As per HPI. Otherwise noncontributory. Physical Exam Musculoskeletal: Exam focused on right upper extremity: He has ecchymosis on the anterior lateral aspect of his right shoulder. No range of motion of his right shoulder was attempted. There is edema. He is nontender at the right clavicle, AC or SC joint. Nontender of the anterior chest wall. No tenderness along the posterior shoulder/scapula region. No visible deformity. Nontender at the right elbow with palpation over any bony prominences. He tolerates gentle passive flexion and extension of the elbow. He can actively extend and flex the wrist with some reproduction of pain in the shoulder. He is able to make a fist and straighten his fingers. He has some mild weakness with flexion of the IP joint of his right thumb. He is able to cross his fingers and approximate his thumb to all of his fingers. He is able to spread his fingers and hold apart with normal strength. Distal pulses are 1+. Skin is healthy in his upper extremities. No edema to the right hand. Capillary fill is brisk. Sling is in place.Exam of bilateral lower extremities: He tolerates gentle passive hip and knee range of motion. He states he really cannot do a lot of active motion with either leg. He is able to gently dorsiflex and plantarflex his ankles. They are largely edematous with 2+ pitting edema. There is purpleish and reddish discoloration of both of his feet which he states is normal. He does have palpable dorsalis pedis pulses able to be obtained with significant pressure due to the edema. He is able to wiggle his toes. Posterior tibial pulses not palpable due to the edema. He has reddish discoloration on the anterior aspect of bilateral lateral shins with no open wounds. He has no open heel ulcers. He has no skin blisters or fluid-filled blisters on either lower extremity. No evidence of active infection. No effusion to either knee. Results & Data Vital Signs (Past 12 Hours) Vital Signs Temp Pulse Pulse Resp BP BP Pulse Ox 11/16/23 11:30 71 20 115/69 96 11/16/23 10:04 70 11/16/23 09:51 36.5 C 74 25 H 121/78 98 O2 Del Method 11/16/23 11:30 11/16/23 10:04 11/16/23 09:51 Room Air Laboratory Results 11/16/23 Range/Units 10:05 WBC 19.29 H (4.8-10.8) K/ul RBC 5.39 (4.70-6.10) M/uL Hgb 15.6 (14.0-18.0) g/dl Hct 47.5 (42.0-52.0) % MCV 88.1 (80.0-100.0) fL MCH 28.9 (25.0-34.0) pg MCHC 32.8 (32.0-36.0) g/dL RDW Std Deviation 43.6 (36.4-46.3) fL RDW Coeff of Amy 13.6 (11.5-14.5) % Plt Count 281 (130-400) K/uL MPV 10.3 (9.4-12.4) fL Immature Gran % (Auto) 1.1 % Neut % (Auto) 75.6 % Lymph % (Auto) 13.8 % [place] % (Auto) 8.1 % Eos % (Auto) 1.0 % Baso % (Auto) 0.4 % Neut # (Auto) 14.56 H (1.40-6.50) K/uL Lymph # (Auto) 2.67 (1.20-3.40) K/uL Carolina # (Auto) 1.57 H (0.11-0.59) K/uL Eos # (Auto) 0.20 (0.00-0.50) K/uL Baso # (Auto) 0.08 (0.00-0.20) K/uL Immature Gran # (Auto) 0.21 H (0.01-0.20) K/uL PT 10.7 (9.0-12.0) Seconds INR 1.0 (0.9-1.1) Sodium 142 (136-145) mmol/L Potassium 3.6 (3.5-5.1) mmol/L Chloride 103 (98-107) mmol/L Carbon Dioxide 33 H (21-32) mmol/L Anion Gap 6 (3-11) BUN 12 (6-23) mg/dl Creatinine 0.36 L (0.6-1.4) mg/dl Est Cr Clr Drug Dosing 242.2 ml/min Est GFR ( Amer) > 150.0 ml/min Est GFR (Non-Af Amer) 132.0 ml/min BUN/Creatinine Ratio 33.3 H (10-20) Glucose 128 H (70-99(Fasting)) mg/dl Calcium 8.9 (8.6-10.3) mg/dl Magnesium 1.9 (1.7-2.4) mg/dl Total Bilirubin 0.7 (0.2-1.0) mg/dl AST 29 (13-39) U/L ALT 38 (7-52) U/L Alkaline Phosphatase 59 (34-104) U/L Total Protein 5.8 L (6.0-8.3) gm/dl Albumin 3.7 (3.4-5.0) gm/dl Globulin 2.1 L (2.5-4.0) gm/dl Albumin/Globulin Ratio 1.8 (0.9-2) Diagnostic Findings XR shoulder RT min 2V routine CLINICAL HISTORY: fall, right humerus fracture COMPARISON: Right humerus radiographs performed earlier today. FINDINGS: Alignment of the right acromioclavicular and glenohumeral joints is anatomic. There is an acute displaced oblique right humeral neck fracture which extends into the humeral head. Fracture is displaced 2.7 cm. 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 IMPRESSION: Acute displaced oblique right humeral neck fracture which extends into the humeral head. XR humerus RT 2V CLINICAL HISTORY: Right arm pain following fall. COMPARISON: Right elbow radiographs June 06, 2022. FINDINGS: There is an acute oblique displaced right humeral neck fracture. Fracture is displaced 3.3 cm. Fracture extends into the humeral head. Fracture is mildly comminuted. Distal right humeral fracture radiographs June 06, 2022 has healed. Alignment of the right acromioclavicular and glenohumeral joints is anatomic. IMPRESSION: Acute displaced comminuted right humeral neck fracture which extends into the humeral head. (1) Proximal humeral fracture Encounter type: initial encounter Fracture alignment: displaced Fracture morphology: other fracture Fracture type: closed Laterality: right Qualified Code(s): S42.291A - Other displaced fracture of upper end of right humerus, initial encounter for closed fracture
--- NOTE | 2023-11-16 13:27 | Electrocardiogram Report ---
Test Reason : Blood Pressure : / mmHG Vent. Rate : 071 BPM Atrial Rate : 071 BPM P-R Int : 166 ms QRS Dur : 090 ms QT Int : 416 ms P-R-T Axes : 054 -11 064 degrees QTc Int : 452 ms Normal sinus rhythm Minimal voltage criteria for LVH, may be normal variant ( R in aVL ) Borderline ECG When compared with ECG of 28-NOV-2022 05:33, No significant change was found Confirmed by Kendall Allen ([id number]) on 11/16/2023 1:27:20 PM Referred By: REFERRED SELF Confirmed By:Kendall Allen
[2023-11-16] MEDS: INSULIN ASPART PER UNIT CHARGE SC ONE (13:42)
[2023-11-16] MEDS: HYDROmorphone INJ 1 MG/ML SYRINGE IV PRN (14:27)
--- NOTE | 2023-11-16 14:35 | CT Scan Report ---
RIGHT SHOULDER CT WITHOUT CONTRAST CLINICAL HISTORY: Right proximal humerus fracture. COMPARISON STUDY: Right shoulder and humerus radiographs performed earlier today. TECHNIQUE: Axial images of the right shoulder were obtained without IV contrast. Sagittal and coronal reconstructions were viewed. Automated exposure control was utilized for the study. A dose lowering technique was utilized adhering to the principles of ALARA. FINDINGS: There is an acute oblique right humeral neck and head fracture. The fracture is displaced 2 cm. Fracture is impacted and mildly comminuted. Associated glenohumeral joint effusion is noted with adjacent hemorrhage. No additional acute fractures are noted. Glenohumeral alignment is anatomic. Po sterior inferior glenoid is blunted but this does not appear acute. AC joint is intact. There are no osseous lesions. No acute fractures are identified within visualized right ribs. Extensive muscular a trophy is noted. IMPRESSION: 1. Acute comminuted displaced impacted right humeral neck and head fracture, as described above. Asso ciated right glenohumeral joint effusion with adjacent hemorrhage. 2. Anatomic alignment of the right glenohumeral joint. 3. No additional acute fractures within the right shoulder. 4. Muscular atrophy. ACT 112: Negative or not required by law. Electronically signed by: Dilip Barahona M.D. 11/16/2023 2:32 PM
[2023-11-16] MEDS: INSULIN ASPART PER UNIT CHARGE SC SCH (16:46)
[2023-11-16] MEDS: ACETAMINOPHEN 325 MG TAB PO SCH (16:47)
[2023-11-16 19:04] LABS: Appearance Urine Cloudy (Clear); Bacteria Urine Automated Negative (Negative); Bilirubin Urine Negative (Negative); Blood Urine Negative (Negative); Color Urine Dark Yellow; Glucose Urine UA 1+ (Negative); Ketones Urine 1+ (Negative); Leukocyte Esterase Urine Negative (Negative); Nitrite Urine Negative (Negative); Protein Urine Negative (Negative); RBC Urine Automated 0-4 /hpf (0-4); Specific Gravity Urine 1.024 (1.000-1.030); Urobilinogen Urine Negative (Negative)
[2023-11-16] MEDS: traZODone HCL 100 MG TAB PO SCH (20:25)
[2023-11-16] MEDS: DULoxetine HCL 60 MG CAP PO SCH (20:25)
[2023-11-16] MEDS: GABAPENTIN 300 MG CAP PO SCH (20:25)
[2023-11-16] MEDS ORDERED: ENOXAPARIN INJ 40 MG/0.4 ML SYR SQ SCH (21:00)
[2023-11-16] MEDS: ZOLPIDEM TARTRATE 5 MG TAB PO STA (22:47)
--- NOTE | 2023-11-17 07:17 | Orthopedic Progress Note ---
Date of Service November 17, 2023 Assessment & Plan (1) Proximal humeral fracture: Plan: IMPRESSION: Right Proximal Humerus fracture, angulated, impacted, closed PLAN: On add-on list for OR today, ORIF Right Proximal Humerus. Has been NPO since midnight. Discussed with primary service and they will hold Lovenox, start IVF at [facility], and ordered stress dose of steroids prior to surgery. Ancef on-call to OR. Continue with sling and ice. Labs today pending Continue are per primary service. Admission and Anticipated Discharge Date Admission Date: November 16, 2023 Subjective Right shoulder pain Physical Exam Physical Exam: PE: Neurovascularly unchanged for patient, with diminished sensation, limited finger motion, with only MCP flexion, unchanged. 2+ radial pulse. Results & Data Vital Signs (Past 12 Hours) Vital Signs Temp Pulse Resp BP Pulse Ox O2 Del Method 11/17/23 06:59 Room Air 11/17/23 00:00 36.7 C 87 18 134/83 95 Room Air 11/16/23 20:25 Room Air Laboratory Results Laboratory Results WBC 19.29 K/ul (4.8-10.8) H 11/16/23 10:05 RBC 5.39 M/uL (4.70-6.10) 11/16/23 10:05 Hgb 15.6 g/dl (14.0-18.0) 11/16/23 10:05 Hct 47.5 % (42.0-52.0) 11/16/23 10:05 MCV 88.1 fL (80.0-100.0) 11/16/23 10:05 MCH 28.9 pg (25.0-34.0) 11/16/23 10:05 MCHC 32.8 g/dL (32.0-36.0) 11/16/23 10:05 RDW Std Deviation 43.6 fL (36.4-46.3) 11/16/23 10:05 RDW Coeff of Amy 13.6 % (11.5-14.5) 11/16/23 10:05 Plt Count 281 K/uL (130-400) 11/16/23 10:05 MPV 10.3 fL (9.4-12.4) 11/16/23 10:05 Immature Gran % (Auto) 1.1 % 11/16/23 10:05 Neut % (Auto) 75.6 % 11/16/23 10:05 Lymph % (Auto) 13.8 % 11/16/23 10:05 Rhea % (Auto) 8.1 % 11/16/23 10:05 Eos % (Auto) 1.0 % 11/16/23 10:05 Baso % (Auto) 0.4 % 11/16/23 10:05 Neut # (Auto) 14.56 K/uL (1.40-6.50) H 11/16/23 10:05 Lymph # (Auto) 2.67 K/uL (1.20-3.40) 11/16/23 10:05 Rhea # (Auto) 1.57 K/uL (0.11-0.59) H 11/16/23 10:05 Eos # (Auto) 0.20 K/uL (0.00-0.50) 11/16/23 10:05 Baso # (Auto) 0.08 K/uL (0.00-0.20) 11/16/23 10:05 Immature Gran # (Auto) 0.21 K/uL (0.01-0.20) H 11/16/23 10:05 PT 10.7 Seconds (9.0-12.0) 11/16/23 10:05 INR 1.0 (0.9-1.1) 11/16/23 10:05 Sodium 142 mmol/L (136-145) 11/16/23 10:05 Potassium 3.6 mmol/L (3.5-5.1) 11/16/23 10:05 Chloride 103 mmol/L (98-107) 11/16/23 10:05 Carbon Dioxide 33 mmol/L (21-32) H 11/16/23 10:05 Anion Gap 6 (3-11) 11/16/23 10:05 BUN 12 mg/dl (6-23) 11/16/23 10:05 Creatinine 0.36 mg/dl (0.6-1.4) L 11/16/23 10:05 Est Cr Clr Drug Dosing 242.2 ml/min 11/16/23 10:05 Est GFR ( Amer) > 150.0 ml/min 11/16/23 10:05 Est GFR (Non-Af Amer) 132.0 ml/min 11/16/23 10:05 BUN/Creatinine Ratio 33.3 (10-20) H 11/16/23 10:05 Glucose 128 mg/dl (70-99(Fasting)) H 11/16/23 10:05 POC Glucose 182 mg/dl (70-99) H 11/17/23 06:22 Calcium 8.9 mg/dl (8.6-10.3) 11/16/23 10:05 Magnesium 1.9 mg/dl (1.7-2.4) 11/16/23 10:05 Total Bilirubin 0.7 mg/dl (0.2-1.0) 11/16/23 10:05 AST 29 U/L (13-39) 11/16/23 10:05 ALT 38 U/L (7-52) 11/16/23 10:05 Alkaline Phosphatase 59 U/L (34-104) 11/16/23 10:05 Total Protein 5.8 gm/dl (6.0-8.3) L 11/16/23 10:05 Albumin 3.7 gm/dl (3.4-5.0) 11/16/23 10:05 Globulin 2.1 gm/dl (2.5-4.0) L 11/16/23 10:05 Albumin/Globulin Ratio 1.8 (0.9-2) 11/16/23 10:05 Procalcitonin < 0.02 ng/ml (0-0.5) 11/16/23 16:15 Urine Color Dark Yellow 11/16/23 18:45 Urine Appearance Cloudy (Clear) A 11/16/23 18:45 Urine pH 6.0 (4.5-7.5) 11/16/23 18:45 Ur Specific [place] 1.024 (1.000-1.030) 11/16/23 18:45 Urine Protein Negative (Negative) 11/16/23 18:45 Urine Glucose (UA) 1+ (Negative) H 11/16/23 18:45 Urine Ketones 1+ (Negative) H 11/16/23 18:45 Urine Blood Negative (Negative) 11/16/23 18:45 Urine Nitrite Negative (Negative) 11/16/23 18:45 Urine Bilirubin Negative (Negative) 11/16/23 18:45 Urine Urobilinogen Negative (Negative) 03/23/24 18:45 Ur Leukocyte Esterase Negative (Negative) 11/16/23 18:45 Urine WBC (Auto) 1-5 /hpf (0-5) 11/16/23 18:45 Urine RBC (Auto) 0-4 /hpf (0-4) 11/16/23 18:45 U Hyaline Cast (Auto) 1-5 /lpf (0-5) 11/16/23 18:45 U Epithel Cells (Auto) 10-20 /lpf (0-5) H 11/16/23 18:45 Urine Bacteria (Auto) Negative (Negative) 11/16/23 18:45 Impressions Humerus X-Ray 11/16/23 09:55 XR humerus RT 2V CLINICAL HISTORY: Right arm pain following fall. COMPARISON: Right elbow radiographs June 06, 2022. FINDINGS: There is an acute oblique displaced right humeral neck fracture. Fracture is displaced 3.3 cm. Fracture extends into the humeral head. Fracture is mildly comminuted. Distal right humeral fracture radiographs June 06, 2022 has healed. Alignment of the right acromioclavicular and glenohumeral joints is anatomic. IMPRESSION: Acute displaced comminuted right humeral neck fracture which extends into the humeral head. ACT 112: Negative or not required by law. Electronically signed by: Dilip Barahona M.D. 11/16/2023 10:21 AM Chest X-Ray 11/16/23 11:35 XR chest 1V portable CLINICAL HISTORY: fall, elevated WBC, monitor for infection/trauma COMPARISON STUDY: Chest radiograph November 27, 2022. FINDINGS: Lung volumes are unchanged. There is a trace right pleural effusion. No pneumothorax. No consolidation is identified to suggest pneumonia. Cardiomegaly is unchanged. There is no evidence for pulmonary edema. Gaseous di stention of the visualized portion of the stomach is unchanged. IMPRESSION: 1. No consolidation to suggest pneumonia. 2. Trace right pleural effusion. ACT 112: Negative or not required by law. Electronically signed by: Dilip Barahona M.D. 11/16/2023 12:06 PM Shoulder X-Ray 11/16/23 11:57 XR shoulder RT min 2V routine CLINICAL HISTORY: fall, right humerus fracture COMPARISON: Right humerus radiographs performed earlier today. FINDINGS: Alignment of the right acromioclavicular and glenohumeral joints is anatomic. There is an acute displaced oblique right humeral neck fracture which extends into the humeral head. Fracture is displaced 2.7 cm. 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 IMPRESSION: Acute displaced oblique right humeral neck fracture which extends into the humeral head. ACT 112: Negative or not required by law. Electronically signed by: Dilip Barahona M.D. 11/16/2023 12:[address] 11/16/23 13:[address] WITHOUT CONTRAST CLINICAL HISTORY: Right proximal humerus fracture. COMPARISON STUDY: Right shoulder and humerus radiographs performed earlier today. TECHNIQUE: Axial images of the right shoulder were obtained without IV contrast. Sagittal and coronal reconstructions were viewed. Automated exposure control was utilized for the study. A dose lowering technique was utilized adhering to the principles of ALARA. FINDINGS: There is an acute oblique right humeral neck and head fracture. The fracture is displaced 2 cm. Fracture is impacted and mildly comminuted. Asso ciated glenohumeral joint effusion is noted with adjacent hemorrhage. No additional acute fractures are noted. Glenohumeral alignment is anatomic. Posterior inferior glenoid is blunted but this does not appear acute. AC joint is intact. There are no osseous lesions. No acute fractures are identified within visualized right ribs. Extensive muscular atrophy is noted. IMPRESSION: 1. Acute comminuted displaced impacted right humeral neck and head fracture, as described above. Associated right glenohumeral joint effusion with adjacent hemorrhage. 2. Anatomic alignment of the right glenohumeral joint. 3. No additional acute fractures within the right shoulder. 4. Muscular atrophy. ACT 112: Negative or not required by law. Electronically signed by: Dilip Barahona M.D. 11/16/2023 2:32 PM (1) Proximal humeral fracture Encounter type: initial encounter Fracture alignment: displaced Fracture morphology: other fracture Fracture type: closed Laterality: right Qualified Code(s): S42.291A - Other displaced fracture of upper end of right humerus, initial encounter for closed fracture
[2023-11-17] MEDS ORDERED: ROCURONIUM BROMIDE 10 MG/ML 5 ML VIAL IV ONE ×2 (07:19→08:47)
[2023-11-17] MEDS ORDERED: GLYCOPYRROLATE 0.2 MG/ML VIAL ONE (07:19)
[2023-11-17] MEDS ORDERED: DEXAMETHASONE SOD INJ 4 MG/ML VIAL ONE (07:19)
[2023-11-17] MEDS ORDERED: ONDANSETRON INJ 2 MG/ML 2 ML VIAL ONE (07:19)
[2023-11-17] MEDS ORDERED: PROPOFOL IV EMULSION 10 MG/ML 20 ML VIAL IV ONE (07:19)
[2023-11-17] MEDS ORDERED: fentaNYL citrate PF 100 MCG/2 ML VIAL ONE (07:20)
[2023-11-17 07:21] LABS: Estimated Average Glucose 183 mg/dl
[2023-11-17] MEDS ORDERED: SUGAMMADEX SODIUM 200 MG/2 ML VIAL IV ONE (07:22)
[2023-11-17] MEDS ORDERED: ROPIVACAINE 0.5% 5 MG/ML 30 ML VIAL ONE (07:39)
[2023-11-17 07:43] LABS: Anion Gap 5 (3-11); BUN Creatinine Ratio 40.5 (10-20); Blood Urea Nitrogen 15 mg/dl (6-23); Calcium 8.7 mg/dl (8.6-10.3); Carbon Dioxide 30 mmol/L (21-32); Chloride 103 mmol/L (98-107); Creatinine Clr Calc Pharmacy 238.8 ml/min; Est GFR (African American) > 150.0 ml/min; Est GFR (Non-African American) 130.5 ml/min; Glucose 185 mg/dl (70-99(Fasting)); INR 0.9 (0.9-1.1); Prothrombin Time 10.4 Seconds (9.0-12.0); Sodium 138 mmol/L (136-145)
[2023-11-17] MEDS ORDERED: ONDANSETRON INJ 2 MG/ML 2 ML VIAL IV PRN ×2 (08:13→12:43)
[2023-11-17] MEDS ORDERED: fentaNYL citrate PF 100 MCG/2 ML VIAL IV PRN (08:13)
[2023-11-17] MEDS ORDERED: ATROPINE SULFATE 0.1 MG/ML 10ML SYR IV PRN (08:13)
[2023-11-17] MEDS ORDERED: ePHEDrine sulfate 50 MG/ML AMP IV PRN (08:13)
[2023-11-17] MEDS: HYDROCORTISONE SOD 100 MG in SYRINGE 0 ML IV SCH (08:15)
[2023-11-17] MEDS: ceFAZolin 2000MG 2,000 MG/15 ML SYR IV SCH ×2 (08:25→15:35)
--- NOTE | 2023-11-17 08:25 | Hospitalist Progress Note ---
Date of Service November 17, 2023 Assessment & Plan (1) Proximal humeral fracture: Plan: 63yo male presented to the ED after sustaining a fall out of his motorized stair chair due to sliding, fell down the last 2 steps, landed on right shoulder. No LOC or head trauma. NVI intact on exam Xray on admission with acute displaced comminuted right humeral neck fracture which extends into the humeral head. Orthopedics consulted, Dr Lopez CT shoulder obtained last evening for further evaluation: * 1. Acute comminuted displaced impacted right humeral neck and head fracture, as described above. Associated right glenohumeral joint effusion with adjacent hemorrhage. * 2. Anatomic alignment of the right glenohumeral joint. * 3. No additional acute fractures within the right shoulder. * 4. Muscular atrophy. s/p p Open Reduction Internal Fixation Right Proximal Humerus Fracture(Right) - Ovi Lopez MD on 11/16. EBL 60cc. Provided 1200cc. Doing well post-op, having some hyperglycemia but adjustment by pharmacy made and patient was ALREADY taken down to OR. Given hydrocortisone 100mg IV x 1 pre-op, Decadron w/ surgery. Will order additional hydrocortisone 25mg q8h IV overnight and if BPs remaining stable plan to resume his home prednisone 15mg in AM WBC elevated in setting of steroids. Notable CBC was obtained FOLLOWING surgery. BMP pre-op stable, K recollect following surgery 4.7 Provided Ancef w/ surgery Continue pain control, antiemetics as needed --> Tylenol, morphine. Oxycodone added post-op Continue sling, ice Therapy consults to be undertaken, possible rehab given R hand dominant but will monitor DVT proph;NO LOVENOX SQ given pre-op per ortho/CT findings --> ASA 81mg BID to begin in AM. --> Will add Protonix 40mg PO daily for GI proph given chronic steroid use. consider continuing at discharge Monitor labs on repeat (2) Fall: Plan: Reported he slid out of his stair chair, unable to stop due to chronic b/l LE weakness from his myositis. No other acute trauma noted As above, s/p OR PT/OT consults to be undertaken and likely need for acute inpatient rehab and will monitor (3) Leukocytosis: Plan: WBC 19k on admission, did have some diarrhea recently ?from chronic prednisone use --> WBC 22k on repeat however notable this was POST op labs as needed recollected and was provided IV hydrocortisone for stress dosing as above as well as Decadron with surgery -Could also be from acute bleeding from the hemorrhage on CT imaging UAw/ ketone/glucose/epithelial cells. CXR w/o pneumonia, noting trace R pleural effusion Stool studies ordered but not yet collected/further diarrhea. 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, right eye: Plan: At home, on lantus 40u QAM, placed on 15u BID on admission Pharmacy consulted for glycemic management in setting of stress dose steroids Had not been provided AM 25u as was taken to OR, pharmacy managing post- operatively given BSGs 250s and getting additional hydrocortisone Hopefully back to usual prednisone in AM Monitor BSGs (5) Lymphedema: Plan: At baseline per patient and on admission b/l SCDs to be in place, elevation Does have some cracking of skin but nontender/no evidence for cellulitis but will monitor Monitor (6) BPH loc w urin obs/LUTS: Plan: Not on medical treatment at this time Monitor for retention (7) Inclusion body myositis: Plan: Hydrocortisone 100mg IV x 1 pre-op provided, decadron with surgery BP 139/72 post-op and ordered additional hydrocortisone 25mg q8h for now rather than 50mg given his stable BP/asymptomatic and decadrone with surgery with his hyperglycemia and will monitor BP overnight and likely able to resume usual 15mg prednisone in AM (8) Sleep apnea: Plan: HS CPAP ordered (9) Hypercholesterolemia: Plan: Continue statin will check CK w/ AM labs to ensure around baseline given his myositis as above, consider holding if significantly elevated Plan continued inpatient stay, monitor labs in AM DVT Proph: ASA 81mg BID to begin AM 11/17. Protonix added for GI proph Therapy evals pending, but suspect likely need for short term rehab given R hand dominant updated brother of plan at bedside 11/16 Admission and Anticipated Discharge Date Admission Date: November 16, 2023 Supervising Physician Co-Signing Physician Notes The patient was not seen by me. The chart was reviewed. Case discussed with YADI Vides. Agree with assessment and plan Subjective Evaluated this afternoon, following surgery. Brother in room at bedside. Patient just finished his lunch tray,no issues with reflux. No lightheaded/dizziness reported, BP 148/90. Pain controlled. Sensation to fingers decreased but able to feel pressure. Discussed monitoring but he notes had some numbness/tingling prior to procedure. He is right hand dominant. Will see how he does with therapy but could potentially need some rehab but will monitor. Discussed stress dose steroids for now and monitoring BP but if stable plan to resume his usual prednisone for AM. Wants new lid for coffee cup/new cup that lid actually fits. Questions/concerns addressed at this time. Physical Exam Physical Exam: General: WD/WN obese male sitting up in bed, brother in room, NAD HEENT; head atraumatic, normocephalic, mmm, trachea midline Resp: even/unlabored, no w/c/r, on room air post op CV: GI: +BS, obese, soft/NT MSK/Neuro: R arm in sling, dressing c/d/i, bloody output in drain, notable ecchymosis to shoulder, slight edema, fingers with sensation intact but not mobile, radial pulse palpable Ext: b/l pedal edema 2+ (baseline edema per patient), dry skin Psych: AOx3, cooperative with exam Results & Data Results & Data Vital Signs (Past 12 Hours) Vital Signs Temp Pulse Resp BP Pulse Ox O2 Del Method 11/17/23 06:59 Room Air 11/17/23 00:00 36.7 C 87 18 134/83 95 Room Air 11/16/23 20:25 Room Air Laboratory Results 11/17/23 11/17/23 11/17/23 Range/Units 12:51 12:43 12:02 WBC 22.04 H RBC 4.94 Hgb 14.3 Hct 44.3 MCV 89.7 MCH 28.9 MCHC 32.3 RDW Std Deviation 44.6 RDW Coeff of Amy 13.6 Plt Count 208 MPV 10.4 Immature Gran % (Auto) 0.8 Neut % (Auto) 93.2 Lymph % (Auto) 3.4 Whitley % (Auto) 2.3 Eos % (Auto) 0.0 Baso % (Auto) 0.3 Neut # (Auto) 20.51 H Lymph # (Auto) 0.76 L Whitley # (Auto) 0.51 Eos # (Auto) 0.01 Baso # (Auto) 0.07 Immature Gran # (Auto) 0.18 Absolute Nucleated RBC Nucleated RBC % (auto) Neutrophils % (Manual) Band Neutrophils % Lymphocytes % (Manual) Prolymphocyte % Reactive Lymphs % (Man) Monocytes % (Manual) Eosinophils % (Manual) Basophils % (Manual) Metamyelocytes % (Man) Myelocytes % (Man) Promyelocytes % (Man) Blast Cells % (Manual) Plasma Cell % (Manual) Other Cells % Nucleated RBC % Neutrophils # (Manual) Band Neutrophils # Total Absolute Neuts Lymphocytes # (Manual) Prolymphocyte # Reactive Lymphs # Total Abs Lymphocytes Monocytes # (Manual) Eosinophils # (Manual) Basophils # (Manual) Metamyelocytes # (Man) Myelocytes # (Manual) Promyelocytes # (Man) Blast Cells # (Man) Plasma Cell # (Manual) Other Cells # Nucleated RBCs # (Man) Hypersegmented Neuts Hyposegmented Neuts Hypogranular Neuts Large Granular Lymphs # Lrg Granular Lymphs Hairy Cells Smudge Cells Toxic Granulation Toxic Vacuolation 2+ Dohle Bodies Agapito Rods Platelet Estimate Hypogranular Platelets Giant Platelets Platelet Satelliting RBC Morphology Polychromasia Hypochromasia Poikilocytosis Basophilic Stippling Anisocytosis Microcytosis Macrocytosis Spherocytes Pappenheimer Bodies Sickle Cells Target Cells Tear Drop Cells Ovalocytes Stomatocytes [place] Bodies Echinocytes Acanthocytes (Spur) Rouleaux RBC Agglutinates Schistocytes Sezary Cell PT (9.0-12.0) Seconds INR (0.9-1.1) Sodium (136-145) mmol/L Potassium 4.6 D Chloride (98-107) mmol/L Carbon Dioxide (21-32) mmol/L Anion Gap (3-11) BUN (6-23) mg/dl Creatinine (0.6-1.4) mg/dl Est Cr Clr Drug Dosing ml/min Est GFR ( Amer) ml/min Est GFR (Non-Af Amer) ml/min BUN/Creatinine Ratio (10-20) Glucose (70-99(Fasting)) mg/dl POC Glucose 250 H 205 H (70-99) mg/dl Estimat Average Glucose mg/dl Hemoglobin A1c (4.5-5.6) % Calcium (8.6-10.3) mg/dl Magnesium (1.7-2.4) mg/dl Procalcitonin (0-0.5) ng/ml Urine Color Urine Appearance (Clear) Urine pH (4.5-7.5) Ur Specific [place] (1.000-1.030) Urine Protein (Negative) Urine Glucose (UA) (Negative) Urine Ketones (Negative) Urine Blood (Negative) Urine Nitrite (Negative) Urine Bilirubin (Negative) Urine Urobilinogen (Negative) Ur Leukocyte Esterase (Negative) Urine WBC (Auto) (0-5) /hpf Urine RBC (Auto) (0-4) /hpf U Hyaline Cast (Auto) (0-5) /lpf U Epithel Cells (Auto) (0-5) /lpf Urine Bacteria (Auto) (Negative) Blood Parasites ID 11/17/23 11/17/23 11/17/23 Range/Units 07:00 06:22 00:18 WBC Cancelled RBC Cancelled Hgb Cancelled Hct Cancelled MCV Cancelled MCH Cancelled MCHC Cancelled RDW Std Deviation Cancelled RDW Coeff of Amy Cancelled Plt Count Cancelled MPV Cancelled Immature Gran % (Auto) Cancelled Neut % (Auto) Cancelled Lymph % (Auto) Cancelled [place] % (Auto) Cancelled Eos % (Auto) Cancelled Baso % (Auto) Cancelled Neut # (Auto) Cancelled Lymph # (Auto) Cancelled [place]ley # (Auto) Cancelled Eos # (Auto) Cancelled Baso # (Auto) Cancelled Immature Gran # (Auto) Cancelled Absolute Nucleated RBC Cancelled Nucleated RBC % (auto) Cancelled Neutrophils % (Manual) Cancelled Band Neutrophils % Cancelled Lymphocytes % (Manual) Cancelled Prolymphocyte % Cancelled Reactive Lymphs % (Man) Cancelled Monocytes % (Manual) Cancelled Eosinophils % (Manual) Cancelled Basophils % (Manual) Cancelled Metamyelocytes % (Man) Cancelled Myelocytes % (Man) Cancelled Promyelocytes % (Man) Cancelled Blast Cells % (Manual) Cancelled Plasma Cell % (Manual) Cancelled Other Cells % Cancelled Nucleated RBC % Cancelled Neutrophils # (Manual) Cancelled Band Neutrophils # Cancelled Total Absolute Neuts Cancelled Lymphocytes # (Manual) Cancelled Prolymphocyte # Cancelled Reactive Lymphs # Cancelled Total Abs Lymphocytes Cancelled Monocytes # (Manual) Cancelled Eosinophils # (Manual) Cancelled Basophils # (Manual) Cancelled Metamyelocytes # (Man) Cancelled Myelocytes # (Manual) Cancelled Promyelocytes # (Man) Cancelled Blast Cells # (Man) Cancelled Plasma Cell # (Manual) Cancelled Other Cells # Cancelled Nucleated RBCs # (Man) Cancelled Hypersegmented Neuts Cancelled Hyposegmented Neuts Cancelled Hypogranular Neuts Cancelled Large Granular Lymphs Cancelled # Lrg Granular Lymphs Cancelled Hairy Cells Cancelled Smudge Cells Cancelled Toxic Granulation Cancelled Toxic Vacuolation Cancelled Dohle Bodies Cancelled [place] Rods Cancelled Platelet Estimate Cancelled Hypogranular Platelets Cancelled Giant Platelets Cancelled Platelet Satelliting Cancelled RBC Morphology Cancelled Polychromasia Cancelled Hypochromasia Cancelled Poikilocytosis Cancelled Basophilic Stippling Cancelled Anisocytosis Cancelled Microcytosis Cancelled Macrocytosis Cancelled Spherocytes Cancelled Pappenheimer Bodies Cancelled Sickle Cells Cancelled Target Cells Cancelled Tear Drop Cells Cancelled Ovalocytes Cancelled Stomatocytes Cancelled [place] Bodies Cancelled Echinocytes Cancelled Acanthocytes (Spur) Cancelled Rouleaux Cancelled RBC Agglutinates Cancelled Schistocytes Cancelled Sezary Cell Cancelled PT 10.4 (9.0-12.0) Seconds INR 0.9 (0.9-1.1) Sodium 138 (136-145) mmol/L Potassium TNP Chloride 103 (98-107) mmol/L Carbon Dioxide 30 (21-32) mmol/L Anion Gap 5 (3-11) BUN 15 (6-23) mg/dl Creatinine 0.37 L (0.6-1.4) mg/dl Est Cr Clr Drug Dosing 238.8 ml/min Est GFR ( Amer) > 150.0 ml/min Est GFR (Non-Af Amer) 130.5 ml/min BUN/Creatinine Ratio 40.5 H (10-20) Glucose 185 H (70-99(Fasting)) mg/dl POC Glucose 182 H 166 H (70-99) mg/dl Estimat Average Glucose mg/dl Hemoglobin A1c (4.5-5.6) % Calcium 8.7 (8.6-10.3) mg/dl Magnesium 2.0 (1.7-2.4) mg/dl Procalcitonin (0-0.5) ng/ml Urine Color Urine Appearance (Clear) Urine pH (4.5-7.5) Ur Specific [place] (1.000-1.030) Urine Protein (Negative) Urine Glucose (UA) (Negative) Urine Ketones (Negative) Urine Blood (Negative) Urine Nitrite (Negative) Urine Bilirubin (Negative) Urine Urobilinogen (Negative) Ur Leukocyte Esterase (Negative) Urine WBC (Auto) (0-5) /hpf Urine RBC (Auto) (0-4) /hpf U Hyaline Cast (Auto) (0-5) /lpf U Epithel Cells (Auto) (0-5) /lpf Urine Bacteria (Auto) (Negative) Blood Parasites ID Cancelled 11/16/23 11/16/23 11/16/23 Range/Units 20:09 18:45 16:43 WBC RBC Hgb Hct MCV MCH MCHC RDW Std Deviation RDW Coeff of Amy Plt Count MPV Immature Gran % (Auto) Neut % (Auto) Lymph % (Auto) [place] % (Auto) Eos % (Auto) Baso % (Auto) Neut # (Auto) Lymph # (Auto) [place] # (Auto) Eos # (Auto) Baso # (Auto) Immature Gran # (Auto) Absolute Nucleated RBC Nucleated RBC % (auto) Neutrophils % (Manual) Band Neutrophils % Lymphocytes % (Manual) Prolymphocyte % Reactive Lymphs % (Man) Monocytes % (Manual) Eosinophils % (Manual) Basophils % (Manual) Metamyelocytes % (Man) Myelocytes % (Man) Promyelocytes % (Man) Blast Cells % (Manual) Plasma Cell % (Manual) Other Cells % Nucleated RBC % Neutrophils # (Manual) Band Neutrophils # Total Absolute Neuts Lymphocytes # (Manual) Prolymphocyte # Reactive Lymphs # Total Abs Lymphocytes Monocytes # (Manual) Eosinophils # (Manual) Basophils # (Manual) Metamyelocytes # (Man) Myelocytes # (Manual) Promyelocytes # (Man) Blast Cells # (Man) Plasma Cell # (Manual) Other Cells # Nucleated RBCs # (Man) Hypersegmented Neuts Hyposegmented Neuts Hypogranular Neuts Large Granular Lymphs # Lrg Granular Lymphs Hairy Cells Smudge Cells Toxic Granulation Toxic Vacuolation Dohle Bodies [place] Rods Platelet Estimate Hypogranular Platelets Giant Platelets Platelet Satelliting RBC Morphology Polychromasia Hypochromasia Poikilocytosis Basophilic Stippling Anisocytosis Microcytosis Macrocytosis Spherocytes Pappenheimer Bodies Sickle Cells Target Cells Tear Drop Cells Ovalocytes Stomatocytes [place] Bodies Echinocytes Acanthocytes (Spur) Rouleaux RBC Agglutinates Schistocytes Sezary Cell PT (9.0-12.0) Seconds INR (0.9-1.1) Sodium (136-145) mmol/L Potassium Chloride (98-107) mmol/L Carbon Dioxide (21-32) mmol/L Anion Gap (3-11) BUN (6-23) mg/dl Creatinine (0.6-1.4) mg/dl Est Cr Clr Drug Dosing ml/min Est GFR ( Amer) ml/min Est GFR (Non-Af Amer) ml/min BUN/Creatinine Ratio (10-20) Glucose (70-99(Fasting)) mg/dl POC Glucose 186 H 206 H (70-99) mg/dl Estimat Average Glucose mg/dl Hemoglobin A1c (4.5-5.6) % Calcium (8.6-10.3) mg/dl Magnesium (1.7-2.4) mg/dl Procalcitonin (0-0.5) ng/ml Urine Color Dark Yellow Urine Appearance Cloudy A (Clear) Urine pH 6.0 (4.5-7.5) Ur Specific [place] 1.024 (1.000-1.030) Urine Protein Negative (Negative) Urine Glucose (UA) 1+ H (Negative) Urine Ketones 1+ H (Negative) Urine Blood Negative (Negative) Urine Nitrite Negative (Negative) Urine Bilirubin Negative (Negative) Urine Urobilinogen Negative (Negative) Ur Leukocyte Esterase Negative (Negative) Urine WBC (Auto) 1-5 (0-5) /hpf Urine RBC (Auto) 0-4 (0-4) /hpf U Hyaline Cast (Auto) 1-5 (0-5) /lpf U Epithel Cells (Auto) 10-20 H (0-5) /lpf Urine Bacteria (Auto) Negative (Negative) Blood Parasites ID 11/16/23 11/16/23 Range/Units 16:15 10:05 WBC RBC Hgb Hct MCV MCH MCHC RDW Std Deviation RDW Coeff of Amy Plt Count MPV Immature Gran % (Auto) Neut % (Auto) Lymph % (Auto) [place] % (Auto) Eos % (Auto) Baso % (Auto) Neut # (Auto) Lymph # (Auto) [place] # (Auto) Eos # (Auto) Baso # (Auto) Immature Gran # (Auto) Absolute Nucleated RBC Nucleated RBC % (auto) Neutrophils % (Manual) Band Neutrophils % Lymphocytes % (Manual) Prolymphocyte % Reactive Lymphs % (Man) Monocytes % (Manual) Eosinophils % (Manual) Basophils % (Manual) Metamyelocytes % (Man) Myelocytes % (Man) Promyelocytes % (Man) Blast Cells % (Manual) Plasma Cell % (Manual) Other Cells % Nucleated RBC % Neutrophils # (Manual) Band Neutrophils # Total Absolute Neuts Lymphocytes # (Manual) Prolymphocyte # Reactive Lymphs # Total Abs Lymphocytes Monocytes # (Manual) Eosinophils # (Manual) Basophils # (Manual) Metamyelocytes # (Man) Myelocytes # (Manual) Promyelocytes # (Man) Blast Cells # (Man) Plasma Cell # (Manual) Other Cells # Nucleated RBCs # (Man) Hypersegmented Neuts Hyposegmented Neuts Hypogranular Neuts Large Granular Lymphs # Lrg Granular Lymphs Hairy Cells Smudge Cells Toxic Granulation Toxic Vacuolation Dohle Bodies [place] Rods Platelet Estimate Hypogranular Platelets Giant Platelets Platelet Satelliting RBC Morphology Polychromasia Hypochromasia Poikilocytosis Basophilic Stippling Anisocytosis Microcytosis Macrocytosis Spherocytes Pappenheimer Bodies Sickle Cells Target Cells Tear Drop Cells Ovalocytes Stomatocytes [place] Bodies Echinocytes Acanthocytes (Spur) Rouleaux RBC Agglutinates Schistocytes Sezary Cell PT (9.0-12.0) Seconds INR (0.9-1.1) Sodium (136-145) mmol/L Potassium Chloride (98-107) mmol/L Carbon Dioxide (21-32) mmol/L Anion Gap (3-11) BUN (6-23) mg/dl Creatinine (0.6-1.4) mg/dl Est Cr Clr Drug Dosing ml/min Est GFR ( Amer) ml/min Est GFR (Non-Af Amer) ml/min BUN/Creatinine Ratio (10-20) Glucose (70-99(Fasting)) mg/dl POC Glucose (70-99) mg/dl Estimat Average Glucose 183 mg/dl Hemoglobin A1c 8.0 H (4.5-5.6) % Calcium (8.6-10.3) mg/dl Magnesium (1.7-2.4) mg/dl Procalcitonin < 0.02 (0-0.5) ng/ml Urine Color Urine Appearance (Clear) Urine pH (4.5-7.5) Ur Specific [place] (1.000-1.030) Urine Protein (Negative) Urine Glucose (UA) (Negative) Urine Ketones (Negative) Urine Blood (Negative) Urine Nitrite (Negative) Urine Bilirubin (Negative) Urine Urobilinogen (Negative) Ur Leukocyte Esterase (Negative) Urine WBC (Auto) (0-5) /hpf Urine RBC (Auto) (0-4) /hpf U Hyaline Cast (Auto) (0-5) /lpf U Epithel Cells (Auto) (0-5) /lpf Urine Bacteria (Auto) (Negative) Blood Parasites ID Diagnostic Findings Humerus X-Ray 11/16/23 09:55 XR humerus RT 2V CLINICAL HISTORY: Right arm pain following fall. COMPARISON: Right elbow radiographs June 06, 2022. FINDINGS: There is an acute oblique displaced right humeral neck fracture. Fracture is displaced 3.3 cm. Fracture extends into the humeral head. Fracture is mildly comminuted. Distal right humeral fracture radiographs June 06, 2022 has healed. Alignment of the right acromioclavicular and glenohumeral joints is anatomic. IMPRESSION: Acute displaced comminuted right humeral neck fracture which extends into the humeral head. ACT 112: Negative or not required by law. Electronically signed by: Dilip Barahona M.D. 11/16/2023 10:21 AM Chest X-Ray 11/16/23 11:35 XR chest 1V portable CLINICAL HISTORY: fall, elevated WBC, monitor for infection/trauma COMPARISON STUDY: Chest radiograph November 27, 2022. FINDINGS: Lung volumes are unchanged. There is a trace right pleural effusion. No pneumothorax. No consolidation is identified to suggest pneumonia. Cardiomegaly is unchanged. There is no evidence for pulmonary edema. Gaseous distention of the visualized portion of the stomach is unchanged. IMPRESSION: 1. No consolidation to suggest pneumonia. 2. Trace right pleural effusion. ACT 112: Negative or not required by law. Electronically signed by: Dilip Barahona M.D. 11/16/2023 12:06 PM Shoulder X-Ray 11/16/23 11:57 XR shoulder RT min 2V routine CLINICAL HISTORY: fall, right humerus fracture COMPARISON: Right humerus radiographs performed earlier today. FINDINGS: Alignment of the right acromioclavicular and glenohumeral joints is anatomic. There is an acute displaced oblique right humeral neck fracture which extends into the humeral head. Fracture is displaced 2.7 cm. 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 IMPRESSION: Acute displaced oblique right humeral neck fracture which extends into the humeral head. ACT 112: Negative or not required by law. Electronically signed by: Dilip Barahona M.D. 11/16/2023 12:[address] 11/16/23 13:[address] WITHOUT CONTRAST CLINICAL HISTORY: Right proximal humerus fracture. COMPARISON STUDY: Right shoulder and humerus radiographs performed earlier today. TECHNIQUE: Axial images of the right shoulder were obtained without IV contrast. Sagittal and coronal reconstructions were viewed. Automated exposure control was utilized for the study. A dose lowering technique was utilized adhering to the principles of ALARA. FINDINGS: There is an acute oblique right humeral neck and head fracture. The fracture is displaced 2 cm. Fracture is impacted and mildly comminuted. Associated glenohumeral joint effusion is noted with adjacent hemorrhage. No additional acute fractures are noted. Glenohumeral alignment is anatomic. Posterior inferior glenoid is blunted but this does not appear acute. AC joint is intact. There are no osseous lesions. No acute fractures are identified within visualized right ribs. Extensive muscular atrophy is noted. IMPRESSION: 1. Acute comminuted displaced impacted right humeral neck and head fracture, as described above. Associated right glenohumeral joint effusion with adjacent hemorrhage. 2. Anatomic alignment of the right glenohumeral joint. 3. No additional acute fractures within the right shoulder. 4. Muscular atrophy. ACT 112: Negative or not required by law. Electronically signed by: Dilip Barahona M.D. 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
[2023-11-17] MEDS ORDERED: ePHEDrine sulfate 50 MG/ML AMP ONE (08:30)
[2023-11-17] MEDS ORDERED: PHENYLEPHRINE HCL 10 MG/ML VIAL ONE (08:30)
[2023-11-17] MEDS: TRANEXAMIC ACID / 0.7% NACL 1000MG/100ML BAG IV ONE (08:45)
--- NOTE | 2023-11-17 08:54 | Anesthesiology Consultation ---
Date of Service November 17, 2023 Assessment & Plan Chart Review Chart Review: Acceptable Risk for Surgery Consults Requested none ASA ASA3 Proposed Anesthesia Anesthesia Type: General Regional Regional Laterality: Right Site: Interscalene Risk / Benefits Reviewed With: PT / POA / Parent / Guardian, Accepts Plan and Informed Consent Obtained History Surgery Operation Date: 11/17/23 07:30 Proposed Procedures p Open Reduction Internal Fixation Shoulde(Right) - Ovi Lopez MD Height/Weight Height: 5 ft 5 in Weight: 114.305 kg Allergies Allergy/AdvReac Type Severity Reaction Status Date / Time mercaptopurine AdvReac Severe JAUNDICE Verified 11/16/23 12:19 Medications Home Medications Medication Instructions Recorded Confirmed Last Taken multivitamin (Daily Multi-Vitamin 1 tab PO QAM 03/04/19 11/16/23 11/16/23 tablet) diphenoxylate-atropine 2.5 1 tab PO QID PRN diarrhea #360 tabs 07/20/19 11/16/23 Unknown mg-0.025 mg tablet trazodone 100 mg tablet 100 mg PO HS #90 tabs 05/23/22 11/16/23 11/15/23 insulin aspart See Rx Instructions subcut DAILY 11/19/22 11/16/23 11/16/23 (niacinamide)(U-100) 100 unit/mL(3 #90 mL mL) subcutaneous pen (Fiasp FlexTouch U-100 Insulin) duloxetine 60 mg capsule,delayed 60 mg PO QPM #90 caps 03/11/23 11/16/23 11/15/23 release lisinopril 5 mg tablet 5 mg PO QAM #90 tabs 03/20/23 11/16/23 11/16/23 zoledronic acid 5 mg/100 mL in 5 ea IV YEARLY #100 mL 05/31/23 11/16/23 10 Months Ago mannitol 5 %-water intravenous ~01/15/23 piggybck (Reclast) gabapentin 300 mg capsule 300 mg PO BID #180 caps 06/24/23 11/16/23 11/16/23 BD Ultra-Fine Marsha Pen Needle 32 #400 ea 07/05/23 10/16/23 Unknown gauge x 5/32" (pen needle, diabetic) acetaminophen 500 mg tablet 1,000 mg PO BID PRN Pain 07/05/23 11/16/23 Unknown (Tylenol Extra Strength) blood sugar diagnostic (OneTouch #10 ea 07/05/23 10/16/23 Unknown Ultra Blue Test Strip) blood-glucose sensor (FreeStyle #1 ea 08/13/23 10/16/23 Unknown [place] 3 Sensor device) prednisone 10 mg tablet 15 mg PO QAM 09/17/23 11/16/23 11/16/23 vedolizumab 300 mg intravenous 300 mg IV Q8WK #1 ea 10/22/23 11/16/23 8 Weeks Ago solution ~09/21/23 ezetimibe 10 mg tablet 10 mg PO QAM 11/15/23 11/16/23 11/16/23 insulin glargine 100 unit/mL (3 40 unit subcut QAM 11/15/23 11/16/23 11/16/23 mL) subcutaneous pen (Basaglar KwikPen U-100 Insulin) calcium carbonate 600 mg-vitamin 1 tab PO QAM 11/16/23 11/16/23 11/16/23 D3 20 mcg (800 unit) chewable tablet (Caltrate 600 plus D) peg 3350-electrolytes 236 0 ml PO Q10M 11/16/23 11/16/23 Unknown gram-22.74 gram-6.74 gram-5.86 gram solution (GaviLyte-G) prednisone 5 mg tablet 5 mg PO UD PRN weakness 11/16/23 11/16/23 Unknown zolpidem 12.5 mg tablet,extended 12.5 mg PO HS insomnia 11/16/23 11/16/23 11/15/23 release,multiphase Active Medications Generic Name Dose Route Start Last Admin Trade Name Freq PRN Reason Stop Dose Admin Acetaminophen 650 mg 11/16/23 17:00 11/17/23 06:19 Acetaminophen 325 Mg Tab PO 12/16/23 16:59 Not Given Q6H WAQAR Duloxetine HCl 60 mg 11/16/23 21:00 11/16/23 20:25 Duloxetine Hcl 60 Mg Cap PO 12/16/23 20:59 60 mg QPM WAQAR Administration Gabapentin 300 mg 11/16/23 21:00 11/16/23 20:25 Gabapentin 300 Mg Cap PO 12/16/23 20:59 300 mg BID WAQAR Administration Hydromorphone HCl 1 mg 11/16/23 11:47 11/16/23 22:49 Hydromorphone Inj 1 Mg/Ml Syringe IV 11/30/23 11:46 1 mg Q4H PRN Administration Pain (8+) Cefazolin Sodium 2,000 mg in 15 mls @ 3.75 mls/min 11/17/23 07:03 11/17/23 08:25 Ancef 2000mg IV 11/17/23 16:00 3.75 mls/min PREOP WAQAR Administration Protocol Hydrocortisone Sodium 2 mls @ 4 mls/min 11/17/23 06:00 11/17/23 08:15 Succinate 100 mg/ Syringe IV 11/17/23 16:00 4 mls/min PREOP WAQAR Administration Protocol Insulin Aspart 0 units 11/16/23 16:30 11/17/23 07:40 Insulin Aspart Per Unit Charge SC 12/16/23 16:29 Not Given ACHS WAQAR Protocol Trazodone HCl 100 mg 11/16/23 21:00 11/16/23 20:25 Trazodone Hcl 100 Mg Tab PO 12/16/23 20:59 100 mg HS WAQAR Administration NPO Date Last Intake of Fluids: 11/16/23 Time Last Intake of Fluids: 23:30 Last Intake of Fluids Comment: sips of water Date Last Intake of Solids: 11/16/23 Time Last Intake of Solids: 18:00 Past Medical History Medical History Osteoporosis Neuropathy Statin myopathy Dysfunction of right eustachian tube Mixed conductive and sensorineural hearing loss of right ear with restricted hearing of left ear Chronic steroid use Wheelchair bound History of intestinal obstruction Chronic back pain Osteoarthritis Diverticulosis 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 Crohn's disease (~08/2021) History of migraine HTN (hypertension) Sleep apnea CPAP Type 1 diabetes mellitus on insulin therapy Insomnia Hypertension Hypercholesterolemia Exercise / Class Metabolic Activity IV < 2 Limit ADL/Bedbound Past Family History Family History Unknown Breast cancer Father Hearing loss Stroke Diabetes Prostate cancer Mother Hypertension Cancer Heart disease Other Allergies No family history of adverse response to anesthesia No family history of bleeding disorder Denies family history of Ovarian cancer Myocardial infarction Colorectal cancer Past Surgical History Surgical History History of biopsy muscle History of intestinal surgery History of wisdom tooth extraction History of esophagogastroduodenoscopy (EGD) History of colonoscopy History of incision and drainage (2016) I&D of sebaceous cyst right upper back History of surgery (2017) epidermal cyst excision History of cholecystectomy Past Anesthesia History No Hx of Anesthesia Complications and No Family Hx of Anesthesia Complications History of PONV No Hx of PONV and No Hx of Motion Sickness Social History Smoking Status: Never smoker tobacco type: cigarettes Do You Dip or Chew Tobacco: No Hx Alcohol Use: No Hx Substance Use: No substance use type: does not use Physical Exam Vital Signs Last Vital Signs Temp 98.1 F 11/17/23 00:00 Pulse 87 11/17/23 00:00 Resp 18 11/17/23 00:00 BP 134/83 11/17/23 00:00 Pulse Ox 95 11/17/23 00:00 O2 Del Method Room Air 11/17/23 06:59 ENMT Mouth: no dentition abnormality Thyromental Distance: > or= 3.5 Finger Breadths Mallampati Class: II Neck normal visual inspection Respiratory normal respiratory effort Auscultation: lungs clear to auscultation bilaterally Cardiovascular Rate/Rhythm: regular rate and regular rhythm Testing Laboratory Results 11/17/23 07:00 11/17/23 07:00 PT 10.4 Seconds (9.0-12.0) 11/17/23 07:00 INR 0.9 (0.9-1.1) 11/17/23 07:00 Hemoglobin A1c 8.0 % (4.5-5.6) H 11/16/23 10:05 Urine Color Dark Yellow 11/16/23 18:45 Urine Appearance Cloudy (Clear) A 11/16/23 18:45 Urine pH 6.0 (4.5-7.5) 11/16/23 18:45 Ur Specific Bath 1.024 (1.000-1.030) 11/16/23 18:45 Urine Protein Negative (Negative) 11/16/23 18:45 Urine Glucose (UA) 1+ (Negative) H 11/16/23 18:45 Urine Ketones 1+ (Negative) H 11/16/23 18:45 Urine Nitrite Negative (Negative) 11/16/23 18:45 Ur Leukocyte Esterase Negative (Negative) 11/16/23 18:45 Urine WBC (Auto) 1-5 /hpf (0-5) 11/16/23 18:45 Urine RBC (Auto) 0-4 /hpf (0-4) 11/16/23 18:45 U Hyaline Cast (Auto) 1-5 /lpf (0-5) 11/16/23 18:45 U Epithel Cells (Auto) 10-20 /lpf (0-5) H 11/16/23 18:45 Urine Bacteria (Auto) Negative (Negative) 11/16/23 18:45 11/17/23 11/17/23 06:22 00:18 POC Glucose 182 H 166 H Electrocardiogram Date: 11/16/23 Normal sinus rhythm Minimal voltage criteria for LVH, may be normal variant ( R in aVL ) Borderline ECG When compared with ECG of 28-NOV-2022 05:33, No significant change was found Confirmed by Kendall Allen ([id number]) on 11/16/2023 1:27:20 PM Chest X-Ray Date: 11/16/23 FINDINGS: Lung volumes are unchanged. There is a trace right pleural effusion. No pneumothorax. No consolidation is identified to suggest pneumonia. Cardiomegaly is unchanged. There is no evidence for pulmonary edema. Gaseous distention of the visualized portion of the stomach is unchanged. IMPRESSION: 1. No consolidation to suggest pneumonia. 2. Trace right pleural effusion.
[2023-11-17] MEDS: LIDOCAINE 1%/EPINEPHRINE 1:100,000 20 ML VIAL ONE (11:32)
[2023-11-17] MEDS: BUPIVACAINE 0.5 % 5 MG/1 ML MPF 30ML VIAL ONE (11:32)
--- NOTE | 2023-11-17 11:42 | Post Operative Brief Note ---
Immediate Post Op Note v1 Date of Surgery November 17, 2023 Pre & Post Diagnosis Operation Date: 11/17/23 07:30 Pre-Op Diagnosis: Right proximal humerus fracture Post-Op Diagnosis: Right proximal humerus fracture I identified the patient and participated in the time-out.: Yes Procedure Operation Date: 11/17/23 07:30 Actual Procedures p Open Reduction Internal Fixation Right Proximal Humerus Fracture(Right) - Ovi Lopez MD Surgeon Ovi Lopez MD Nursing Faculty Geoffrey Grant PA-C (No fellow avail) Estimated Blood Loss 60 Findings Consistent with Post-Op Diagnosis Fluids 1200 cc Drains Batista Catheter (In place prior to arriving in operating room.) Anesthesia Type General Regional Complications none
--- NOTE | 2023-11-17 11:43 | Operative Report ---
Post Operative Report Pre & Post Diagnosis Operation Date: 11/17/23 07:30 Pre-Op Diagnosis: Right proximal humerus fracture, comminuted, displaced Post-Op Diagnosis: Right proximal humerus fracture, comminuted, displaced I identified the patient and participated in the time-out.: Yes Procedure Operation Date: 11/17/23 07:30 Actual Procedures p Open Reduction Internal Fixation Right Proximal Humerus Fracture(Right) - Ovi Lopez MD Surgeon Ovi Lopez MD Clinic Md Associate Geoffrey Grant PA-C (No fellow avail) Estimated Blood Loss 60 Findings See Below Displaced and comminuted proximal humerus fracture Fluids 1200 cc Specimens n/a Anesthesia Type General Regional Complications none Indications The patient is a pleasant 63-year-old male, who fell off his stair lift fracturing their right proximal humerus. Their treatment options of conservative surgical intervention were discussed. The risks of surgery include but not limited to: Infection, bleeding, nerve damage, need for repeat surgery, damage to nerves and arteries, mal-union, nonunion, decreased level of activity, deep vein thrombosis, heart attack, stroke, and . The patient wanted to proceed with surgery and the informed consent was signed. Description of Procedure Geoffrey Grant PA-C is assisting with positioning, retraction, and closure due to fellow not available. IMPLANTS: 1) Standard 3.5 mm LCP Proximal Humerus Plate (Synthes) 2) 3.5 mm Locking screws (26 mm, 28 x 2, 32, 34, 38, 40 x 2, 45 x 2). 3) DBX Putty 5 ml PROCEDURE: The patient was taken to the Operating Room and placed in the beach-chair position after administration of an interscalene block and general anesthesia. 2 g of intravenous Ancef were administered. The right shoulder was then prepped and draped in the standard sterile fashion. Sequential compression devices were placed in the legs. TXA 1 g was given pre-op. The patient was identified and a multidisciplinary time-out identified the right shoulder as the correct shoulder and operative limb. First, the coracoid, acromion, clavicle, and planned deltopectoral incision were marked and then anesthetized with a 50:50 mixture of 1% lidocaine and 0.5% Marcaine with epinephrine. Sharp dissection was carried down to the deltopectoral interval. The cephalic vein was identified and protected laterally as was the deltoid. The deltopectoral interval was dissected to expose the clavipectoral fascia which was then incised. Blunt dissect was used to separate the deltoid from the humeral fracture fragments and rotator cuff. A Sheriff retractor was placed beneath the deltoid muscle, exposing the fracture. The superior 1cm of the Pec major was released. The biceps tendon was identified in its groove. The Tuberosities were tagged. The bursitis and hematoma were removed. The humeral shaft and humeral head were identified and freed up from each other. Any hematoma and callus was removed from the fracture ends with irrigation, rongeur, and dental pick. The wound was copiously irrigated. The humeral shaft fracture fragment was distracted while the humeral head was elevated and the humeral shaft was then internally rotated to reduce the proximal humeral fracture. Several k-wires were placed to provide temporary fixation. The standard 3.5 mm LCP Proximal Humerus plate was selected and held in place with 2 K wires. Fluoroscopy was brought in to ensure proper placement of the plate and near anatomic reduction. Once this was achieved, the screws were placed, starting with a 3.5 mm non-locking screw on the shaft in the oblong hole. The k-wires through the plate were removed and the plate slide proximally a couple of mm. The 3.5 locking screws were placed in 7 of the proximal portion of the plate, using fluoroscopy to ensure proper length screws into the humeral head. The 2 distal locking holes were also placed. The cortical screw was removed and replaced with a locking screw. The temporary k-wires were removed. The wounds were again copiously irrigated. DBX putty was placed into the fracture site. The #1 Vicryl sutures used for tuberosities and traction on the humeral head fragment were placed through the holes along the edge of the plate and tied. Final x-rays were obtained. The wound was again copiously irrigated. The ROM of the shoulder had FF & abduction 155 degrees, ER 70 degrees, IR 40 degrees. The wound was copiously irrigated throughout the case. The deltopectoral interval was re-approximated with #1-Vicryl, the subcutaneous tissue was closed with 3-0 Vircyl, and the skin was closed with ZipLine and Shield. The wounds were dressed with sterile gauze, and Tegaderm. The patient was then transferred to the PACU in stable condition after application of a sling. POST-OP: The patient will be re-admitted to Hospitalist service. Patient will be seen by PT/OT and discharge planning. Pain medicine will be used as needed. Continue sling for comfort. I attest to the content of the Intraoperative Record and any orders documented therein. Any exceptions are noted below.
[2023-11-17] MEDS: LACTATED RINGER'S 1,000 ML IV SCH (11:47)
--- NOTE | 2023-11-17 12:06 | Fluoroscopy Report ---
FL humerus RT 2V CLINICAL HISTORY: RIGHT PROX HUMERUS FX TECHNIQUE: 2 views were obtained with the C-arm in the OR with the above procedure. Total fluoroscopy time was 32 seconds. Radiation dose was 1.07 mGy. Comparison: Comparison is made to CT right shoulder 11/16/2023 FINDINGS/IMPRESSION: Intraoperative images were obtained of open reduction internal fixation of right proximal humerus fracture. Please correlate with intraoperative fluoroscopy and operative report. ACT 112: Negative or not required by law. Electronically signed by: Rakesh Thompson M.D. 11/17/2023 12:05 PM
--- NOTE | 2023-11-17 12:19 | Operative Report ---
Post Operative Report Pre & Post Diagnosis Operation Date: 11/17/23 07:30 Pre-Op Diagnosis: Right proximal humerus fracture Post-Op Diagnosis: Right proximal humerus fracture I identified the patient and participated in the time-out.: Yes Procedure Operation Date: 11/17/23 07:30 Actual Procedures p Open Reduction Internal Fixation Right Proximal Humerus Fracture(Right) - Ovi Lopez MD Surgeon Ovi Lopez M.D. Mapper Geoffrey Grant PA-C (No fellow avail) Estimated Blood Loss 60 Findings Consistent with Post-Op Diagnosis Specimens None Description of Procedure Patient was taken to the operating room, placed under general anesthesia with peripheral nerve block. Time out performed, given 2gm IV Ancef for surgical prophylaxis, with TXA 1gm IV preop for bleeding prophylaxis. I was present during the entire case, please see Dr. Lopez's operative report for further detail. Patient was taken to the recovery room in stable condition. Please see Dr. Lopez's operative report for further detail regarding today's procedure. I attest to the content of the Intraoperative Record and any orders documented therein. Any exceptions are noted below.
--- NOTE | 2023-11-17 12:27 | Anesthesiology Progress Note ---
Date of Service November 17, 2023 Anesthesia Post Procedure Vital Signs Vital Signs: Temp Pulse Pulse Resp BP Pulse Ox O2 Del Method 11/17/23 12:20 97.7 F 83 17 131/69 92 Room Air 11/17/23 12:10 79 16 148/77 H 98 Oxymask 11/17/23 12:00 81 20 144/83 H 97 Oxymask 11/17/23 11:52 98.1 F 81 16 152/78 H 99 Oxymask 11/17/23 06:59 Room Air 11/17/23 00:00 98.1 F 87 18 134/83 95 Room Air 11/16/23 20:25 Room Air 11/16/23 16:00 97.7 F 81 16 145/82 H 100 Room Air 11/16/23 13:54 Room Air 11/16/23 13:18 98.4 F 82 18 146/80 H 98 Room Air O2 Flow Rate 11/17/23 12:20 0 11/17/23 12:10 4 11/17/23 12:00 6 11/17/23 11:52 8 11/17/23 06:59 11/17/23 00:00 11/16/23 20:25 11/16/23 16:00 11/16/23 13:54 11/16/23 13:18 Pain Intensity Right Shoulder: Pain Intensity: 4 Transfer of Care Handoff Completed per policy Notes Mental Status: alert / awake / arousable and participated in evaluation Patient Amnestic to Procedure: Yes Nausea / Vomiting: adequately controlled Pain: adequately controlled Airway Patency, RR, SpO2: stable & adequate BP & HR: stable & adequate Hydration State: stable & adequate Anesthetic Complications: no major complications apparent and Pt Satisfied with anesthetic care
[2023-11-17] MEDS ORDERED: NALOXONE HCL 0.4 MG/1 ML VIAL/CARP IV PRN (12:43)
[2023-11-17] MEDS: lisinopril 5 MG TAB PO SCH (12:53)
[2023-11-17] MEDS: MULTIVITAMIN TAB PO SCH (12:54)
[2023-11-17] MEDS: predniSONE 5 MG TAB PO SCH (12:54)
[2023-11-17] MEDS: EZETIMIBE 10 MG TAB PO SCH (12:54)
[2023-11-17] MEDS: LANTUS PER UNIT CHARGE SQ SCH (12:56)
[2023-11-17] MEDS: SODIUM CHLORIDE 0.9% 1,000 ML IV SCH (12:58)
[2023-11-17] MEDS: LANTUS PER UNIT CHARGE SC ONE (13:06)
--- NOTE | 2023-11-17 13:10 | Pharmacy Report ---
Pharmacy Glycemic Short Note 2 - Date of Service November 17, 2023 - Glycemic Short BSG Results (Last 24 hours): 11/16/23 11/16/23 11/16/23 13:20 16:43 20:09 Glucose POC Glucose 136 H 206 H 186 H 11/17/23 11/17/23 11/17/23 00:18 06:22 07:00 Glucose 185 H POC Glucose 166 H 182 H 11/17/23 11/17/23 12:02 12:43 Glucose POC Glucose 205 H 250 H OUTPATIENT ANTIDIABETIC REGIMEN: * Fiasp 38 units with breakfast, 34 units with lunch, 38 units with dinner * Basaglar 40 units SQ AM * A1c 7.4% 06/20/23, updated A1c ordered ASSESSMENT: 11/16 * S/p ORIF humerus this AM, no insulin given this morning, patient received IV Dexamethasone 4mg + Hydrocortisone 100mg IV preop. BSG now 250mg/dl postop. * Will give extra basal and tighten CF/CR at this time to cover steroids, loosen as steroids wear off. 11/15 * 63yo M with history of Crohn's disease, HTN, HLP, Type 1 DM, BALTAZAR on HS CPAP, and inclusion body myositis on chronic prednisone (15mg/day) who presented to the [facility] ED on 11/16/23 after sustaining a fall off his motorized stair chair resulting in Humerus fracture. Pharmacy consulted for glycemic control. * Will start patient on basal bolus insulin and titrate to goal blood sugar. Patient euglycemic on admission, BSG 123mg/dl. PLAN FOR INPATIENT GLYCEMIC CONTROL: * Basal insulin * Lantus 45 units SQ x 1 dose now post op * 30 units SQ daily starting tomorrow * Bolus insulin - tighten now, loosen as steroids wear off * NovoLog per scale ACHS or Q6hrs while NPO * Goal Range: Low 110 mg/dL - High 140 mg/dL * Correction Factor: 8 mg/dL/unit * Nutritional / Prandial insulin per carb ratio of 1 unit per 1.5 grams CHO consumed
[2023-11-17 13:12] LABS: Hematocrit (blood only) 44.3 % (42.0-52.0); Hemoglobin 14.3 g/dl (14.0-18.0); Mean Corpuscular Hemoglobin 28.9 pg (25.0-34.0); Mean Corpuscular Hgb Conc 32.3 g/dL (32.0-36.0); Mean Corpuscular Volume 89.7 fL (80.0-100.0); Mean Platelet Volume 10.4 fL (9.4-12.4); Platelet Count 208 K/uL (130-400); RDW Coefficient of Variation 13.6 % (11.5-14.5); RDW Standard Deviation 44.6 fL (36.4-46.3); Red Blood Count 4.94 M/uL (4.70-6.10); White Blood Count 22.04 K/ul (4.8-10.8)
[2023-11-17 13:37] LABS: Basophils # (auto) 0.07 K/uL (0.00-0.20); Basophils % (auto) 0.3 %; Eosinophils # (auto) 0.01 K/uL (0.00-0.50); Immature Granulocytes # (auto) 0.18 K/uL (0.01-0.20); Immature Granulocytes % (auto) 0.8 %; Lymphocytes # (auto) 0.76 K/uL (1.20-3.40); Lymphocytes % (auto) 3.4 %; Monocytes # (auto) 0.51 K/uL (0.11-0.59); Monocytes % (auto) 2.3 %; Neutrophils # (auto) 20.51 K/uL (1.40-6.50); Neutrophils % (auto) 93.2 %; Toxic Vacuolation 2+
[2023-11-17] MEDS: HYDROCORTISONE SOD 25 MG in SYRINGE 0 ML IV SCH (15:35)
[2023-11-17] MEDS: ZOLPIDEM TARTRATE 5 MG TAB PO PRN (22:12)
[2023-11-18] MEDS: CARBOHYDRATES FOR HYPOGLYCEMIA PO PRN (02:35)
[2023-11-18] MEDS: INSULIN ASPART PER UNIT CHARGE SC SCH (02:48)
[2023-11-18] MEDS: DEXTROSE 50% 50 ML SYRINGE IV PRN (03:08)
[2023-11-18 07:04] LABS: Basophils # (auto) 0.02 K/uL (0.00-0.20); Basophils % (auto) 0.1 %; Eosinophils # (auto) 0.02 K/uL (0.00-0.50); Eosinophils % (auto) 0.1 %; Hematocrit (blood only) 35.9 % (42.0-52.0); Hemoglobin 11.9 g/dl (14.0-18.0); Immature Granulocytes # (auto) 0.06 K/uL (0.01-0.20); Immature Granulocytes % (auto) 0.4 %; Lymphocytes # (auto) 1.94 K/uL (1.20-3.40); Lymphocytes % (auto) 12.7 %; Mean Corpuscular Hemoglobin 29.1 pg (25.0-34.0); Mean Corpuscular Hgb Conc 33.1 g/dL (32.0-36.0); Mean Corpuscular Volume 87.8 fL (80.0-100.0); Mean Platelet Volume 10.5 fL (9.4-12.4); Monocytes # (auto) 1.66 K/uL (0.11-0.59); Monocytes % (auto) 10.9 %; Neutrophils # (auto) 11.52 K/uL (1.40-6.50); Neutrophils % (auto) 75.8 %; Platelet Count 207 K/uL (130-400); RDW Coefficient of Variation 13.6 % (11.5-14.5); RDW Standard Deviation 43.7 fL (36.4-46.3); Red Blood Count 4.09 M/uL (4.70-6.10); White Blood Count 15.22 K/ul (4.8-10.8)
[2023-11-18 07:24] LABS: Anion Gap 4 (3-11); BUN Creatinine Ratio 35.3 (10-20); Blood Urea Nitrogen 12 mg/dl (6-23); Calcium 7.6 mg/dl (8.6-10.3); Carbon Dioxide 29 mmol/L (21-32); Chloride 105 mmol/L (98-107); Creatine Kinase 271 U/L (30-223); Creatinine Clr Calc Pharmacy 259.6 ml/min; Est GFR (African American) > 150.0 ml/min; Est GFR (Non-African American) 135.2 ml/min; Glucose 133 mg/dl (70-99(Fasting)); Magnesium 1.8 mg/dl (1.7-2.4); Potassium 3.8 mmol/L (3.5-5.1); Sodium 138 mmol/L (136-145)
[2023-11-18] MEDS: ASPIRIN 81 MG ECTAB PO SCH (08:21)
[2023-11-18] MEDS: PANTOprazole 40 MG TAB PO SCH (08:22)
--- NOTE | 2023-11-18 08:46 | Hospitalist Progress Note ---
Date of Service November 18, 2023 Assessment & Plan (1) Proximal humeral fracture: Plan: 63yo male presented to the ED after sustaining a fall out of his motorized stair chair due to sliding, fell down the last 2 steps, landed on right shoulder. No LOC or head trauma. NVI intact on exam Xray on admission with acute displaced comminuted right humeral neck fracture which extends into the humeral head. CT shoulder w/ Acute comminuted displaced impacted right humeral neck and head fracture. Associated right glenohumeral joint effusion with adjacent hemorrhage. Orthopedics consulted, Dr Lopez s/p p Open Reduction Internal Fixation Right Proximal Humerus Fracture(Right) - Ovi Lopez MD on 11/16. EBL 60cc. Provided 1200cc. s/p hydrocortisone 100mg IV x 1 pre-op Continued on hydrocortisone 25mg Q8H IV and did have drop in BP overnight to 98/62 but asymptomatic but did also have BSG to 67s (pharmacy on consult for glycemic management) and will continue hydrocortisone 25mg IV Q8H for today ( BP 116/70 this morning, improved to 140s systolic but w/ pain) and will monitor to see about resuming home prednisone 15mg PO for 11/18 if BPs remaining stable without further drops. No lightheaded/dizziness reported. WBC trending down (CBC 11/16 was drawn AFTER surgery to note as needed recollected) Continue sling, ice Pain control, antiemetics DVT Proph: ASA 81mg BID, added protonix 40mg daily while on such given baseline chronic steroid use. No reflux reported at this time Changed to full admission PT/OT consults undertaken today and recommend rehab - patient agreeable and CM to follow (2) Fall: Plan: Reported he slid out of his stair chair, unable to stop due to chronic b/l LE weakness from his myositis. No other acute trauma noted As above, s/p ORIF with Dr Lopez 11/16 Needing rehab, CM following (3) Leukocytosis: Plan: WBC 19k on admission, did have some diarrhea recently ?from chronic prednisone use --> WBC 22k on repeat however notable this was POST op labs as needed recollected and was provided IV hydrocortisone for stress dosing as above as well as Decadron with surgery -Could also be from acute bleeding from the hemorrhage on CT imaging UAw/ ketone/glucose/epithelial cells. CXR w/o pneumonia, noting trace R pleural effusion Stool studies ordered but not yet collected/further diarrhea. 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 Asymptomatic BSGs improved today, pharmacy on consult and hopeful to transition to home prednisone for his myositis in AM but will continue for today as outlined (5) Lymphedema: Plan: At baseline per patient and on admission and SCDs in place, elevation appearing improved 11/16 despite IV steroids/IVF with surgery and appears to be related to dependent edema from being in wheelchair most of the time No pain/warmth to suggest cellulitis at this time but skin was cracked (cream applied) and appears better 11/17 and will monitor outpt f/u, would use stockings as able at home (6) BPH loc w urin obs/LUTS: Plan: bhandari placed prior to surgery as not wanting to get up to go/had been retaining monitor activity with therapy, plan to remove later today and monitor for retention issues. likely benefit from flomax but given drop in BP overnight will hold off for now/monitor (7) Inclusion body myositis: Plan: Hydrocortisone 100mg IV x 1 pre-op provided, decadron with surgery and continued on stress hydrocortisone as outlined which will be continued overnight and hopefully able to resume prednisone 15mg daily for AM 11/18 if BPs remaining stable without hypotension or symptoms (8) Sleep apnea: Plan: HS CPAP ordered (9) Hypercholesterolemia: Plan: Continue statin, CK minimal elevation 2nd to his IBM as above and continues on statin. No sx reported Plan continued inpatient stay, needing inpatient rehab at discharge per therapy recommendations. likely stable for dc next 24 hours pending BP/resumption of home steroids and B SGs CM sending referral to [place] [facility] and needs insurance approval Admission and Anticipated Discharge Date Admission Date: November 16, 2023 Subjective Evaluated this morning, just got done working with therapy. Recommendations for rehab, patient agreeable at this time. Pain controlled w/ tylenol alone per patient, would like a dose if due. Fingers more mobile, sensation improving, arm in sling. able to squeeze my hand today. He is scheduled tylenol 650mg q6h scheduled, will change to 1000mg q8h prn for improvement in pain and monitor. BP dropped overnight (as well as his blood sugar) and discussed continue IV hydrocortisone for today and resume home prednisone for tomorrow morning if no further drops/blood sugars stable. No fever/chils, chest pain, shortness of breath. Leg edema actually improved from yesterday and he reports likely from being dependent in his wheelchair all day at home. Questions/concerns addressed at this time. Physical Exam Physical Exam: General: WD/WN obese male sitting up in bed, just finished working with therapy, NAD but reporting would like a tylenol if able HEENT; head atraumatic, normocephalic, mmm, trachea midline Resp: even/unlabored, no w/c/r CV: RRR, no significant murmur (?faint systolic murmur), b/l LE edema as below, calves nontender GI: +BS, obese, soft/NT MSK/Neuro: R arm in sling, dressing c/d/i, bloody output in drain, notable ecchymosis to shoulder, slight edema, fingers with improvement in mobility today, able to squeeze my fingers, sensation returning, radial pulse palpable Ext: b/l pedal edema 2+ actually IMPROVED (baseline edema per patient, worse with being dependent in his wheelchair typically), dry skin Psych: AOx3, cooperative with exam Results & Data Results & Data Vital Signs (Past 12 Hours) Vital Signs Temp Pulse Resp BP Pulse Ox O2 Del Method 11/18/23 06:53 37.3 C 82 16 116/70 99 Room Air 11/18/23 03:03 37.1 C 90 18 98/62 L 96 Room Air 11/17/23 22:26 36.7 C 93 H 18 118/71 94 Room Air Laboratory Results 11/18/23 11/18/23 11/18/23 Range/Units 11:43 07:35 06:12 WBC 15.22 H (4.8-10.8) K/ul RBC 4.09 L (4.70-6.10) M/uL Hgb 11.9 L (14.0-18.0) g/dl Hct 35.9 L (42.0-52.0) % MCV 87.8 (80.0-100.0) fL MCH 29.1 (25.0-34.0) pg MCHC 33.1 (32.0-36.0) g/dL RDW Std Deviation 43.7 (36.4-46.3) fL RDW Coeff of Amy 13.6 (11.5-14.5) % Plt Count 207 (130-400) K/uL MPV 10.5 (9.4-12.4) fL Immature Gran % (Auto) 0.4 % Neut % (Auto) 75.8 % Lymph % (Auto) 12.7 % [place] % (Auto) 10.9 % Eos % (Auto) 0.1 % Baso % (Auto) 0.1 % Neut # (Auto) 11.52 H (1.40-6.50) K/uL Lymph # (Auto) 1.94 (1.20-3.40) K/uL [place] # (Auto) 1.66 H (0.11-0.59) K/uL Eos # (Auto) 0.02 (0.00-0.50) K/uL Baso # (Auto) 0.02 (0.00-0.20) K/uL Immature Gran # (Auto) 0.06 (0.01-0.20) K/uL Toxic Vacuolation PT 11.0 (9.0-12.0) Seconds INR 1.0 (0.9-1.1) Sodium 138 (136-145) mmol/L Potassium 3.8 (3.5-5.1) mmol/L Chloride 105 (98-107) mmol/L Carbon Dioxide 29 (21-32) mmol/L Anion Gap 4 (3-11) BUN 12 (6-23) mg/dl Creatinine 0.34 L (0.6-1.4) mg/dl Est Cr Clr Drug Dosing 259.6 ml/min Est GFR ( Amer) > 150.0 ml/min Est GFR (Non-Af Amer) 135.2 ml/min BUN/Creatinine Ratio 35.3 H (10-20) Glucose 133 H (70-99(Fasting)) mg/dl POC Glucose 125 H 111 H (70-99) mg/dl Calcium 7.6 L (8.6-10.3) mg/dl Magnesium 1.8 (1.7-2.4) mg/dl Total Creatine Kinase 271 H (30-223) U/L 11/18/23 11/18/23 11/18/23 Range/Units 03:22 02:51 02:28 WBC (4.8-10.8) K/ul RBC (4.70-6.10) M/uL Hgb (14.0-18.0) g/dl Hct (42.0-52.0) % MCV (80.0-100.0) fL MCH (25.0-34.0) pg MCHC (32.0-36.0) g/dL RDW Std Deviation (36.4-46.3) fL RDW Coeff of Amy (11.5-14.5) % Plt Count (130-400) K/uL MPV (9.4-12.4) fL Immature Gran % (Auto) % Neut % (Auto) % Lymph % (Auto) % [place] % (Auto) % Eos % (Auto) % Baso % (Auto) % Neut # (Auto) (1.40-6.50) K/uL Lymph # (Auto) (1.20-3.40) K/uL [place] # (Auto) (0.11-0.59) K/uL Eos # (Auto) (0.00-0.50) K/uL Baso # (Auto) (0.00-0.20) K/uL Immature Gran # (Auto) (0.01-0.20) K/uL Toxic Vacuolation PT (9.0-12.0) Seconds INR (0.9-1.1) Sodium (136-145) mmol/L Potassium (3.5-5.1) mmol/L Chloride (98-107) mmol/L Carbon Dioxide (21-32) mmol/L Anion Gap (3-11) BUN (6-23) mg/dl Creatinine (0.6-1.4) mg/dl Est Cr Clr Drug Dosing ml/min Est GFR ( Amer) ml/min Est GFR (Non-Af Amer) ml/min BUN/Creatinine Ratio (10-20) Glucose (70-99(Fasting)) mg/dl POC Glucose 119 H 67 L* 64 L* (70-99) mg/dl Calcium (8.6-10.3) mg/dl Magnesium (1.7-2.4) mg/dl Total Creatine Kinase (30-223) U/L 11/18/23 11/17/23 11/17/23 Range/Units 02:27 20:27 16:34 WBC (4.8-10.8) K/ul RBC (4.70-6.10) M/uL Hgb (14.0-18.0) g/dl Hct (42.0-52.0) % MCV (80.0-100.0) fL MCH (25.0-34.0) pg MCHC (32.0-36.0) g/dL RDW Std Deviation (36.4-46.3) fL RDW Coeff of Amy (11.5-14.5) % Plt Count (130-400) K/uL MPV (9.4-12.4) fL Immature Gran % (Auto) % Neut % (Auto) % Lymph % (Auto) % [place] % (Auto) % Eos % (Auto) % Baso % (Auto) % Neut # (Auto) (1.40-6.50) K/uL Lymph # (Auto) (1.20-3.40) K/uL [place] # (Auto) (0.11-0.59) K/uL Eos # (Auto) (0.00-0.50) K/uL Baso # (Auto) (0.00-0.20) K/uL Immature Gran # (Auto) (0.01-0.20) K/uL Toxic Vacuolation PT (9.0-12.0) Seconds INR (0.9-1.1) Sodium (136-145) mmol/L Potassium (3.5-5.1) mmol/L Chloride (98-107) mmol/L Carbon Dioxide (21-32) mmol/L Anion Gap (3-11) BUN (6-23) mg/dl Creatinine (0.6-1.4) mg/dl Est Cr Clr Drug Dosing ml/min Est GFR ( Amer) ml/min Est GFR (Non-Af Amer) ml/min BUN/Creatinine Ratio (10-20) Glucose (70-99(Fasting)) mg/dl POC Glucose 61 L* 238 H 257 H (70-99) mg/dl Calcium (8.6-10.3) mg/dl Magnesium (1.7-2.4) mg/dl Total Creatine Kinase (30-223) U/L 11/17/23 11/17/23 Range/Units 12:51 12:43 WBC 22.04 H (4.8-10.8) K/ul RBC 4.94 (4.70-6.10) M/uL Hgb 14.3 (14.0-18.0) g/dl Hct 44.3 (42.0-52.0) % MCV 89.7 (80.0-100.0) fL MCH 28.9 (25.0-34.0) pg MCHC 32.3 (32.0-36.0) g/dL RDW Std Deviation 44.6 (36.4-46.3) fL RDW Coeff of Amy 13.6 (11.5-14.5) % Plt Count 208 (130-400) K/uL MPV 10.4 (9.4-12.4) fL Immature Gran % (Auto) 0.8 % Neut % (Auto) 93.2 % Lymph % (Auto) 3.4 % [place] % (Auto) 2.3 % Eos % (Auto) 0.0 % Baso % (Auto) 0.3 % Neut # (Auto) 20.51 H (1.40-6.50) K/uL Lymph # (Auto) 0.76 L (1.20-3.40) K/uL [place] # (Auto) 0.51 (0.11-0.59) K/uL Eos # (Auto) 0.01 (0.00-0.50) K/uL Baso # (Auto) 0.07 (0.00-0.20) K/uL Immature Gran # (Auto) 0.18 (0.01-0.20) K/uL Toxic Vacuolation 2+ PT (9.0-12.0) Seconds INR (0.9-1.1) Sodium (136-145) mmol/L Potassium 4.6 D (3.5-5.1) mmol/L Chloride (98-107) mmol/L Carbon Dioxide (21-32) mmol/L Anion Gap (3-11) BUN (6-23) mg/dl Creatinine (0.6-1.4) mg/dl Est Cr Clr Drug Dosing ml/min Est GFR ( Amer) ml/min Est GFR (Non-Af Amer) ml/min BUN/Creatinine Ratio (10-20) Glucose (70-99(Fasting)) mg/dl POC Glucose 250 H (70-99) mg/dl Calcium (8.6-10.3) mg/dl Magnesium (1.7-2.4) mg/dl Total Creatine Kinase (30-223) U/L PG Care Time/CCT Total # of Minutes Spent Total Time Spent with Patient: Total time spent is greater than 50% in coordination of care (as documented) at patient's floor/unit and/or counseling patient: Coding Level of Care Code 69406 SUB INP/OBS CARE 3/50MIN Diagnoses Proximal humeral fracture S42.291A Encounter type: initial encounter Fracture alignment: displaced Fracture morphology: other fracture Fracture type: closed Laterality: right Fall W19.XXXA Encounter type: initial encounter Leukocytosis D72.829 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
--- NOTE | 2023-11-18 09:19 | Orthopedic Progress Note ---
Date of Service November 18, 2023 Assessment & Plan (1) Proximal humeral fracture: Plan: POD 1 s/p Right shoulder proximal humerus open reduction internal fixation with Dr. Lopez Continue sling for comfort. We will change his dressing to Silverlon dressing when he is ready for discharge. Optifoam can be placed on right elbow also prior to discharge. Continue with pain control. Continue with ice. NWB RUE. PT/OT, gentle ROM as tolerated. Case management for discharge planning/rehab. Follow-up outpatient with peds orthopedics in 2 weeks Admission and Anticipated Discharge Date Admission Date: November 16, 2023 Subjective Patient seen and examined at bedside with Dr. Lopez. Postop day 1 right proximal humerus ORIF. He believes rehab will be the best option for him due to his mobility issues. Physical Exam Physical Exam: Patient is sitting up in bed, awake alert and oriented. Calm and comfortable. Dressing is clean, dry and intact. Patient is in sling with ice pack over top. Swelling expected postop. Neurovascularly unchanged for patient, with diminished sensation, limited finger motion, with only MCP flexion, unchanged. 2+ radial pulse. Pt has myositis and poor mobility at baseline Results & Data Vital Signs (Past 12 Hours) Vital Signs Temp Pulse Resp BP Pulse Ox O2 Del Method 11/18/23 08:37 Room Air 11/18/23 06:53 37.3 C 82 16 116/70 99 Room Air 11/18/23 03:03 37.1 C 90 18 98/62 L 96 Room Air 11/17/23 22:26 36.7 C 93 H 18 118/71 94 Room Air Laboratory Results 11/18/23 11/18/23 11/18/23 Range/Units 07:35 06:12 03:22 WBC 15.22 H (4.8-10.8) K/ul RBC 4.09 L (4.70-6.10) M/uL Hgb 11.9 L (14.0-18.0) g/dl Hct 35.9 L (42.0-52.0) % MCV 87.8 (80.0-100.0) fL MCH 29.1 (25.0-34.0) pg MCHC 33.1 (32.0-36.0) g/dL RDW Std Deviation 43.7 (36.4-46.3) fL RDW Coeff of Amy 13.6 (11.5-14.5) % Plt Count 207 (130-400) K/uL MPV 10.5 (9.4-12.4) fL Immature Gran % (Auto) 0.4 % Neut % (Auto) 75.8 % Lymph % (Auto) 12.7 % Drew % (Auto) 10.9 % Eos % (Auto) 0.1 % Baso % (Auto) 0.1 % Neut # (Auto) 11.52 H (1.40-6.50) K/uL Lymph # (Auto) 1.94 (1.20-3.40) K/uL Drew # (Auto) 1.66 H (0.11-0.59) K/uL Eos # (Auto) 0.02 (0.00-0.50) K/uL Baso # (Auto) 0.02 (0.00-0.20) K/uL Immature Gran # (Auto) 0.06 (0.01-0.20) K/uL Toxic Vacuolation PT 11.0 (9.0-12.0) Seconds INR 1.0 (0.9-1.1) Sodium 138 (136-145) mmol/L Potassium 3.8 (3.5-5.1) mmol/L Chloride 105 (98-107) mmol/L Carbon Dioxide 29 (21-32) mmol/L Anion Gap 4 (3-11) BUN 12 (6-23) mg/dl Creatinine 0.34 L (0.6-1.4) mg/dl Est Cr Clr Drug Dosing 259.6 ml/min Est GFR ( Amer) > 150.0 ml/min Est GFR (Non-Af Amer) 135.2 ml/min BUN/Creatinine Ratio 35.3 H (10-20) Glucose 133 H (70-99(Fasting)) mg/dl POC Glucose 111 H 119 H (70-99) mg/dl Calcium 7.6 L (8.6-10.3) mg/dl Magnesium 1.8 (1.7-2.4) mg/dl Total Creatine Kinase 271 H (30-223) U/L 11/18/23 11/18/23 11/18/23 Range/Units 02:51 02:28 02:27 WBC (4.8-10.8) K/ul RBC (4.70-6.10) M/uL Hgb (14.0-18.0) g/dl Hct (42.0-52.0) % MCV (80.0-100.0) fL MCH (25.0-34.0) pg MCHC (32.0-36.0) g/dL RDW Std Deviation (36.4-46.3) fL RDW Coeff of Amy (11.5-14.5) % Plt Count (130-400) K/uL MPV (9.4-12.4) fL Immature Gran % (Auto) % Neut % (Auto) % Lymph % (Auto) % Drew % (Auto) % Eos % (Auto) % Baso % (Auto) % Neut # (Auto) (1.40-6.50) K/uL Lymph # (Auto) (1.20-3.40) K/uL Drew # (Auto) (0.11-0.59) K/uL Eos # (Auto) (0.00-0.50) K/uL Baso # (Auto) (0.00-0.20) K/uL Immature Gran # (Auto) (0.01-0.20) K/uL Toxic Vacuolation PT (9.0-12.0) Seconds INR (0.9-1.1) Sodium (136-145) mmol/L Potassium (3.5-5.1) mmol/L Chloride (98-107) mmol/L Carbon Dioxide (21-32) mmol/L Anion Gap (3-11) BUN (6-23) mg/dl Creatinine (0.6-1.4) mg/dl Est Cr Clr Drug Dosing ml/min Est GFR ( Amer) ml/min Est GFR (Non-Af Amer) ml/min BUN/Creatinine Ratio (10-20) Glucose (70-99(Fasting)) mg/dl POC Glucose 67 L* 64 L* 61 L* (70-99) mg/dl Calcium (8.6-10.3) mg/dl Magnesium (1.7-2.4) mg/dl Total Creatine Kinase (30-223) U/L 11/17/23 11/17/23 11/17/23 Range/Units 20:27 16:34 12:51 WBC 22.04 H (4.8-10.8) K/ul RBC 4.94 (4.70-6.10) M/uL Hgb 14.3 (14.0-18.0) g/dl Hct 44.3 (42.0-52.0) % MCV 89.7 (80.0-100.0) fL MCH 28.9 (25.0-34.0) pg MCHC 32.3 (32.0-36.0) g/dL RDW Std Deviation 44.6 (36.4-46.3) fL RDW Coeff of Amy 13.6 (11.5-14.5) % Plt Count 208 (130-400) K/uL MPV 10.4 (9.4-12.4) fL Immature Gran % (Auto) 0.8 % Neut % (Auto) 93.2 % Lymph % (Auto) 3.4 % Drew % (Auto) 2.3 % Eos % (Auto) 0.0 % Baso % (Auto) 0.3 % Neut # (Auto) 20.51 H (1.40-6.50) K/uL Lymph # (Auto) 0.76 L (1.20-3.40) K/uL Drew # (Auto) 0.51 (0.11-0.59) K/uL Eos # (Auto) 0.01 (0.00-0.50) K/uL Baso # (Auto) 0.07 (0.00-0.20) K/uL Immature Gran # (Auto) 0.18 (0.01-0.20) K/uL Toxic Vacuolation 2+ PT (9.0-12.0) Seconds INR (0.9-1.1) Sodium (136-145) mmol/L Potassium 4.6 D (3.5-5.1) mmol/L Chloride (98-107) mmol/L Carbon Dioxide (21-32) mmol/L Anion Gap (3-11) BUN (6-23) mg/dl Creatinine (0.6-1.4) mg/dl Est Cr Clr Drug Dosing ml/min Est GFR ( Amer) ml/min Est GFR (Non-Af Amer) ml/min BUN/Creatinine Ratio (10-20) Glucose (70-99(Fasting)) mg/dl POC Glucose 238 H 257 H (70-99) mg/dl Calcium (8.6-10.3) mg/dl Magnesium (1.7-2.4) mg/dl Total Creatine Kinase (30-223) U/L 11/17/23 11/17/23 Range/Units 12:43 12:02 WBC (4.8-10.8) K/ul RBC (4.70-6.10) M/uL Hgb (14.0-18.0) g/dl Hct (42.0-52.0) % MCV (80.0-100.0) fL MCH (25.0-34.0) pg MCHC (32.0-36.0) g/dL RDW Std Deviation (36.4-46.3) fL RDW Coeff of Amy (11.5-14.5) % Plt Count (130-400) K/uL MPV (9.4-12.4) fL Immature Gran % (Auto) % Neut % (Auto) % Lymph % (Auto) % Drew % (Auto) % Eos % (Auto) % Baso % (Auto) % Neut # (Auto) (1.40-6.50) K/uL Lymph # (Auto) (1.20-3.40) K/uL Drew # (Auto) (0.11-0.59) K/uL Eos # (Auto) (0.00-0.50) K/uL Baso # (Auto) (0.00-0.20) K/uL Immature Gran # (Auto) (0.01-0.20) K/uL Toxic Vacuolation PT (9.0-12.0) Seconds INR (0.9-1.1) Sodium (136-145) mmol/L Potassium (3.5-5.1) mmol/L Chloride (98-107) mmol/L Carbon Dioxide (21-32) mmol/L Anion Gap (3-11) BUN (6-23) mg/dl Creatinine (0.6-1.4) mg/dl Est Cr Clr Drug Dosing ml/min Est GFR ( Amer) ml/min Est GFR (Non-Af Amer) ml/min BUN/Creatinine Ratio (10-20) Glucose (70-99(Fasting)) mg/dl POC Glucose 250 H 205 H (70-99) mg/dl Calcium (8.6-10.3) mg/dl Magnesium (1.7-2.4) mg/dl Total Creatine Kinase (30-223) U/L (1) Proximal humeral fracture Encounter type: initial encounter Fracture alignment: displaced Fracture morphology: other fracture Fracture type: closed Laterality: right Qualified Code(s): S42.291A - Other displaced fracture of upper end of right humerus, initial encounter for closed fracture
[2023-11-18] MEDS: ACETAMINOPHEN 500 MG TAB PO PRN (10:17)
--- NOTE | 2023-11-18 12:05 | Pharmacy Report ---
Pharmacy Glycemic Short Note 2 - Date of Service November 18, 2023 - Glycemic Short BSG Results (Last 24 hours): 11/17/23 11/17/23 11/17/23 12:02 12:43 16:34 Glucose POC Glucose 205 H 250 H 257 H 11/17/23 11/18/23 11/18/23 20:27 02:27 02:28 Glucose POC Glucose 238 H 61 L* 64 L* 11/18/23 11/18/23 11/18/23 02:51 03:22 06:12 Glucose 133 H POC Glucose 67 L* 119 H 11/18/23 11/18/23 07:35 11:43 Glucose POC Glucose 111 H 125 H OUTPATIENT ANTIDIABETIC REGIMEN: * Fiasp 38 units with breakfast, 34 units with lunch, 38 units with dinner * Basaglar 40 units SQ AM * A1c 7.4% 06/20/23, updated A1c ordered ASSESSMENT: 11/17 * Patient received total of 133 units of insulin yesterday, of which 45 units were basal insulin. BSGs trending down overnight 61 mg/dL - treated per hypoglycemia protocol. Plan to scale back on basal for this evening. Novolog parameters also loosened this AM 11/16 * S/p ORIF humerus this AM, no insulin given this morning, patient received IV Dexamethasone 4mg + Hydrocortisone 100mg IV preop. BSG now 250mg/dl postop. * Will give extra basal and tighten CF/CR at this time to cover steroids, loosen as steroids wear off. 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 Pharmacy consulted for glycemic control. * Will start patient on basal bolus insulin and titrate to goal blood sugar. Patient euglycemic on admission, BSG 123mg/dl. PLAN FOR INPATIENT GLYCEMIC CONTROL: * Basal insulin * Lantus 40 units once daily * Bolus insulin * NovoLog per scale ACHS or Q6hrs while NPO * Goal Range: Low 110 mg/dL - High 140 mg/dL * Correction Factor: 12 mg/dL/unit * Nutritional / Prandial insulin per carb ratio of 1 unit per 3grams CHO consumed
[2023-11-18] MEDS ORDERED: LANTUS PER UNIT CHARGE SC SCH (17:00)
[2023-11-18] MEDS: LANTUS PER UNIT CHARGE SC SCH (17:07)
[2023-11-18] MEDS: oxyCODONE HCL IR 5 MG TAB (IMMEDIATE RELEASE) PO PRN (21:27)
[2023-11-19 07:44] LABS: Anion Gap 6 (3-11); BUN Creatinine Ratio 52.4 (10-20); Blood Urea Nitrogen 11 mg/dl (6-23); Calcium 7.8 mg/dl (8.6-10.3); Carbon Dioxide 27 mmol/L (21-32); Chloride 106 mmol/L (98-107); Creatinine Clr Calc Pharmacy 420.8 ml/min; Est GFR (African American) > 150.0 ml/min; Est GFR (Non-African American) > 150.0 ml/min; Glucose 107 mg/dl (70-99(Fasting)); Potassium 3.8 mmol/L (3.5-5.1); Sodium 139 mmol/L (136-145)
[2023-11-19 07:53] LABS: Prothrombin Time 10.6 Seconds (9.0-12.0)
[2023-11-19 09:10] LABS: Basophils # (auto) 0.03 K/uL (0.00-0.20); Basophils % (auto) 0.3 %; Eosinophils # (auto) 0.14 K/uL (0.00-0.50); Eosinophils % (auto) 1.2 %; Hematocrit (blood only) 36.8 % (42.0-52.0); Hemoglobin 12.1 g/dl (14.0-18.0); Immature Granulocytes # (auto) 0.07 K/uL (0.01-0.20); Immature Granulocytes % (auto) 0.6 %; Lymphocytes # (auto) 2.73 K/uL (1.20-3.40); Lymphocytes % (auto) 23.7 %; Mean Corpuscular Hemoglobin 29.2 pg (25.0-34.0); Mean Corpuscular Hgb Conc 32.9 g/dL (32.0-36.0); Mean Corpuscular Volume 88.9 fL (80.0-100.0); Mean Platelet Volume 10.9 fL (9.4-12.4); Monocytes # (auto) 1.27 K/uL (0.11-0.59); Neutrophils % (auto) 63.2 %; Platelet Count 218 K/uL (130-400); RDW Coefficient of Variation 13.5 % (11.5-14.5); RDW Standard Deviation 44.4 fL (36.4-46.3); Red Blood Count 4.14 M/uL (4.70-6.10); White Blood Count 11.54 K/ul (4.8-10.8)
--- NOTE | 2023-11-19 10:04 | Orthopedic Progress Note ---
Date of Service November 19, 2023 Assessment & Plan (1) Proximal humeral fracture: Plan: POD 2 s/p Right shoulder proximal humerus open reduction internal fixation with Dr. Lopez Continue sling for comfort. Silverlon (keep in place until 2 week f/u appointment) and Optifoam placed this morning. Continue with pain control. Continue with ice. 50% PWB RUE. PT/OT, gentle ROM as tolerated. Case management for discharge planning/rehab. Follow-up outpatient with [facility] orthopedics in 2 weeks Admission and Anticipated Discharge Date Admission Date: November 18, 2023 Supervising Physician Co-Signing Physician Notes I, Dr. Lopez, saw and examined the patient. I discussed the management with my PA. I reviewed my PAs note and agree with the documented findings and attest to completing the substantive portion of medical decision making and plan of care I developed. Subjective This 63-year-old male is 2 days status post open reduction internal fixation of right proximal humerus fracture with Dr. Lopez. Patient states that he is doing fairly well. He states that he is trying to avoid narcotic pain medication and currently controlling his pain with oral Tylenol. He states that he will need to go to a rehab facility or correction facility upon discharge. He does not feel that his can care for him at home. Currently denies chest pain, shortness of breath, fever, chills, sweats, nausea, vomiting or difficulty voiding. He states that his biggest issue is constipation and wonders if I could order a stool softener. Review of Systems Review of Systems: As per HPI. Otherwise noncontributory. Physical Exam Physical Exam: Right shoulder: Postoperative dressings were removed and Silverlon was placed over the surgical incision site. Optifoam dressing was placed over superficial abrasion to the posterior elbow. Patient is about 10 degrees short of terminal extension but is able to reach terminal flexion. He has some referred pain with active wrist pronation and supination. 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 He is able to detect light sensation to touch over the pads of all digits. His peripheral pulses were 2+. He is neurovascularly intact. Results & Data Vital Signs (Past 12 Hours) Vital Signs Temp Pulse Resp BP Pulse Ox O2 Del Method 11/19/23 07:18 37.1 C 78 18 129/78 100 Room Air Diagnostic Findings Laboratory Results WBC 11.54 K/ul (4.8-10.8) H 11/19/23 06:40 RBC 4.14 M/uL (4.70-6.10) L 11/19/23 06:40 Hgb 12.1 g/dl (14.0-18.0) L 11/19/23 06:40 Hct 36.8 % (42.0-52.0) L 11/19/23 06:40 MCV 88.9 fL (80.0-100.0) 11/19/23 06:40 MCH 29.2 pg (25.0-34.0) 11/19/23 06:40 MCHC 32.9 g/dL (32.0-36.0) 11/19/23 06:40 RDW Std Deviation 44.4 fL (36.4-46.3) 11/19/23 06:40 RDW Coeff of Amy 13.5 % (11.5-14.5) 11/19/23 06:40 Plt Count 218 K/uL (130-400) 11/19/23 06:40 MPV 10.9 fL (9.4-12.4) 11/19/23 06:40 Immature Gran % (Auto) 0.6 % 11/19/23 06:40 Neut % (Auto) 63.2 % 11/19/23 06:40 Lymph % (Auto) 23.7 % 11/19/23 06:40 Stafford % (Auto) 11.0 % 11/19/23 06:40 Eos % (Auto) 1.2 % 11/19/23 06:40 Baso % (Auto) 0.3 % 11/19/23 06:40 Neut # (Auto) 7.30 K/uL (1.40-6.50) H 11/19/23 06:40 Lymph # (Auto) 2.73 K/uL (1.20-3.40) 11/19/23 06:40 Stafford # (Auto) 1.27 K/uL (0.11-0.59) H 11/19/23 06:40 Eos # (Auto) 0.14 K/uL (0.00-0.50) 11/19/23 06:40 Baso # (Auto) 0.03 K/uL (0.00-0.20) 11/19/23 06:40 Immature Gran # (Auto) 0.07 K/uL (0.01-0.20) 11/19/23 06:40 Absolute Nucleated RBC Cancelled 11/17/23 07:00 Nucleated RBC % (auto) Cancelled 11/17/23 07:00 Neutrophils % (Manual) Cancelled 11/17/23 07:00 Band Neutrophils % Cancelled 11/17/23 07:00 Lymphocytes % (Manual) Cancelled 11/17/23 07:00 Prolymphocyte % Cancelled 11/17/23 07:00 Reactive Lymphs % (Man) Cancelled 11/17/23 07:00 Monocytes % (Manual) Cancelled 11/17/23 07:00 Eosinophils % (Manual) Cancelled 11/17/23 07:00 Basophils % (Manual) Cancelled 11/17/23 07:00 Metamyelocytes % (Man) Cancelled 11/17/23 07:00 Myelocytes % (Man) Cancelled 11/17/23 07:00 Promyelocytes % (Man) Cancelled 11/17/23 07:00 Blast Cells % (Manual) Cancelled 11/17/23 07:00 Plasma Cell % (Manual) Cancelled 11/17/23 07:00 Other Cells % Cancelled 11/17/23 07:00 Nucleated RBC % Cancelled 11/17/23 07:00 Neutrophils # (Manual) Cancelled 11/17/23 07:00 Band Neutrophils # Cancelled 11/17/23 07:00 Total Absolute Neuts Cancelled 11/17/23 07:00 Lymphocytes # (Manual) Cancelled 11/17/23 07:00 Prolymphocyte # Cancelled 11/17/23 07:00 Reactive Lymphs # Cancelled 11/17/23 07:00 Total Abs Lymphocytes Cancelled 11/17/23 07:00 Monocytes # (Manual) Cancelled 11/17/23 07:00 Eosinophils # (Manual) Cancelled 11/17/23 07:00 Basophils # (Manual) Cancelled 11/17/23 07:00 Metamyelocytes # (Man) Cancelled 11/17/23 07:00 Myelocytes # (Manual) Cancelled 11/17/23 07:00 Promyelocytes # (Man) Cancelled 11/17/23 07:00 Blast Cells # (Man) Cancelled 11/17/23 07:00 Plasma Cell # (Manual) Cancelled 11/17/23 07:00 Other Cells # Cancelled 11/17/23 07:00 Nucleated RBCs # (Man) Cancelled 11/17/23 07:00 Hypersegmented Neuts Cancelled 11/17/23 07:00 Hyposegmented Neuts Cancelled 11/17/23 07:00 Hypogranular Neuts Cancelled 11/17/23 07:00 Large Granular Lymphs Cancelled 11/17/23 07:00 # Lrg Granular Lymphs Cancelled 11/17/23 07:00 Hairy Cells Cancelled 11/17/23 07:00 Smudge Cells Cancelled 11/17/23 07:00 Toxic Granulation Cancelled 11/17/23 07:00 Toxic Vacuolation 2+ 11/17/23 12:51 Dohle Bodies Cancelled 11/17/23 07:00 Agapito Rods Cancelled 11/17/23 07:00 Platelet Estimate Cancelled 11/17/23 07:00 Hypogranular Platelets Cancelled 11/17/23 07:00 Giant Platelets Cancelled 11/17/23 07:00 Platelet Satelliting Cancelled 11/17/23 07:00 RBC Morphology Cancelled 11/17/23 07:00 Polychromasia Cancelled 11/17/23 07:00 Hypochromasia Cancelled 11/17/23 07:00 Poikilocytosis Cancelled 11/17/23 07:00 Basophilic Stippling Cancelled 11/17/23 07:00 Anisocytosis Cancelled 11/17/23 07:00 Microcytosis Cancelled 11/17/23 07:00 Macrocytosis Cancelled 11/17/23 07:00 Spherocytes Cancelled 11/17/23 07:00 Pappenheimer Bodies Cancelled 11/17/23 07:00 Sickle Cells Cancelled 11/17/23 07:00 Target Cells Cancelled 11/17/23 07:00 Tear Drop Cells Cancelled 11/17/23 07:00 Ovalocytes Cancelled 11/17/23 07:00 Stomatocytes Cancelled 11/17/23 07:00 [place] Bodies Cancelled 11/17/23 07:00 Echinocytes Cancelled 11/17/23 07:00 Acanthocytes (Spur) Cancelled 11/17/23 07:00 Rouleaux Cancelled 11/17/23 07:00 RBC Agglutinates Cancelled 11/17/23 07:00 Schistocytes Cancelled 11/17/23 07:00 Sezary Cell Cancelled 11/17/23 07:00 PT 10.6 Seconds (9.0-12.0) 11/19/23 06:40 INR 1.0 (0.9-1.1) 11/19/23 06:40 Sodium 139 mmol/L (136-145) 11/19/23 06:40 Potassium 3.8 mmol/L (3.5-5.1) 11/19/23 06:40 Chloride 106 mmol/L (98-107) 11/19/23 06:40 Carbon Dioxide 27 mmol/L (21-32) 11/19/23 06:40 Anion Gap 6 (3-11) 11/19/23 06:40 BUN 11 mg/dl (6-23) 11/19/23 06:40 Creatinine 0.21 mg/dl (0.6-1.4) L 11/19/23 06:40 Est Cr Clr Drug Dosing 420.8 ml/min 11/19/23 06:40 Est GFR ( Amer) > 150.0 ml/min 11/19/23 06:40 Est GFR (Non-Af Amer) > 150.0 ml/min 11/19/23 06:40 BUN/Creatinine Ratio 52.4 (10-20) H 11/19/23 06:40 Glucose 107 mg/dl (70-99(Fasting)) H 11/19/23 06:40 POC Glucose 97 mg/dl (70-99) 11/19/23 07:41 Estimat Average Glucose 183 mg/dl 11/16/23 10:05 Hemoglobin A1c 8.0 % (4.5-5.6) H 11/16/23 10:05 Calcium 7.8 mg/dl (8.6-10.3) L 11/19/23 06:40 Magnesium 2.0 mg/dl (1.7-2.4) 11/19/23 06:40 Total Bilirubin 0.7 mg/dl (0.2-1.0) 11/16/23 10:05 AST 29 U/L (13-39) 11/16/23 10:05 ALT 38 U/L (7-52) 11/16/23 10:05 Alkaline Phosphatase 59 U/L (34-104) 11/16/23 10:05 Total Creatine Kinase 271 U/L (30-223) H 11/18/23 06:12 Total Protein 5.8 gm/dl (6.0-8.3) L 11/16/23 10:05 Albumin 3.7 gm/dl (3.4-5.0) 11/16/23 10:05 Globulin 2.1 gm/dl (2.5-4.0) L 11/16/23 10:05 Albumin/Globulin Ratio 1.8 (0.9-2) 11/16/23 10:05 Procalcitonin < 0.02 ng/ml (0-0.5) 11/16/23 16:15 Urine Color Dark Yellow 11/16/23 18:45 Urine Appearance Cloudy (Clear) A 11/16/23 18:45 Urine pH 6.0 (4.5-7.5) 11/16/23 18:45 Ur Specific Stafford 1.024 (1.000-1.030) 11/16/23 18:45 Urine Protein Negative (Negative) 11/16/23 18:45 Urine Glucose (UA) 1+ (Negative) H 11/16/23 18:45 Urine Ketones 1+ (Negative) H 11/16/23 18:45 Urine Blood Negative (Negative) 11/16/23 18:45 Urine Nitrite Negative (Negative) 11/16/23 18:45 Urine Bilirubin Negative (Negative) 11/16/23 18:45 Urine Urobilinogen Negative (Negative) 11/16/23 18:45 Ur Leukocyte Esterase Negative (Negative) 11/16/23 18:45 Urine WBC (Auto) 1-5 /hpf (0-5) 11/16/23 18:45 Urine RBC (Auto) 0-4 /hpf (0-4) 11/16/23 18:45 U Hyaline Cast (Auto) 1-5 /lpf (0-5) 11/16/23 18:45 U Epithel Cells (Auto) 10-20 /lpf (0-5) H 11/16/23 18:45 Urine Bacteria (Auto) Negative (Negative) 11/16/23 18:45 Blood Parasites ID Cancelled 11/17/23 07:00 Impressions Chest X-Ray 11/16/23 11:35 XR chest 1V portable CLINICAL HISTORY: fall, elevated WBC, monitor for infection/trauma COMPARISON STUDY: Chest radiograph November 27, 2022. FINDINGS: Lung volumes are unchanged. There is a trace right pleural effusion. No pneumothorax. No consolidation is identified to suggest pneumonia. Cardiomegaly is unchanged. There is no evidence for pulmonary edema. Gaseous distention of the visualized portion of the stomach is unchanged. IMPRESSION: 1. No consolidation to suggest pneumonia. 2. Trace right pleural effusion. ACT 112: Negative or not required by law. Electronically signed by: Dilip Barahona M.D. 11/16/2023 12:06 PM Shoulder X-Ray 11/16/23 11:57 XR shoulder RT min 2V routine CLINICAL HISTORY: fall, right humerus fracture COMPARISON: Right humerus radiographs performed earlier today. FINDINGS: Alignment of the right acromioclavicular and glenohumeral joints is anatomic. There is an acute displaced oblique right humeral neck fracture which extends into the humeral head. Fracture is displaced 2.7 cm. 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 IMPRESSION: Acute displaced oblique right humeral neck fracture which extends into the humeral head. ACT 112: Negative or not required by law. Electronically signed by: Dilip Barahona M.D. 11/16/2023 12:[address] 11/16/23 13:[address] WITHOUT CONTRAST CLINICAL HISTORY: Right proximal humerus fracture. COMPARISON STUDY: Right shoulder and humerus radiographs performed earlier today. TECHNIQUE: Axial images of the right shoulder were obtained without IV contrast. Sagittal and coronal reconstructions were viewed. Automated exposure control was utilized for the study. A dose lowering technique was utilized adhering to the principles of ALARA. FINDINGS: There is an acute oblique right humeral neck and head fracture. The fracture is displaced 2 cm. Fracture is impacted and mildly comminuted. Associated glenohumeral joint effusion is noted with adjacent hemorrhage. No additional acute fractures are noted. Glenohumeral alignment is anatomic. Posterior inferior glenoid is blunted but this does not appear acute. AC joint is intact. There are no osseous lesions. No acute fractures are identified within visualized right ribs. Extensive muscular atrophy is noted. IMPRESSION: 1. Acute comminuted displaced impacted right humeral neck and head fracture, as described above. Associated right glenohumeral joint effusion with adjacent hemorrhage. 2. Anatomic alignment of the right glenohumeral joint. 3. No additional acute fractures within the right shoulder. 4. Muscular atrophy. ACT 112: Negative or not required by law. Electronically signed by: Dilip Barahona M.D. 11/16/2023 2:32 PM Humerus X-Ray 11/17/23 00:00 FL humerus RT 2V CLINICAL HISTORY: RIGHT PROX HUMERUS FX TECHNIQUE: 2 views were obtained with the C-arm in the OR with the above procedure. Total fluoroscopy time was 32 seconds. Radiation dose was 1.07 mGy. Comparison: Comparison is made to CT right shoulder 11/16/2023 FINDINGS/IMPRESSION: Intraoperative images were obtained of open reduction internal fixation of right proximal humerus fracture. Please correlate with intraoperative fluoroscopy and operative report. ACT 112: Negative or not required by law. Electronically signed by: Rakesh Thompson M.D. 11/17/2023 12:05 PM (1) Proximal humeral fracture Encounter type: initial encounter Fracture alignment: displaced Fracture morphology: other fracture Fracture type: closed Laterality: right Qualified Code(s): S42.291A - Other displaced fracture of upper end of right humerus, initial encounter for closed fracture
[2023-11-19] MEDS: POLYETHYLENE (MIRALAX) 17 GM PACK PO PRN (12:15)
[2023-11-19] MEDS: LANTUS PER UNIT CHARGE SC SCH (12:15)
--- NOTE | 2023-11-19 13:08 | Hospitalist Progress Note ---
Date of Service November 19, 2023 Assessment & Plan (1) Proximal humeral fracture: Plan: 63yo male presented to the ED after sustaining a fall out of his motorized stair chair due to sliding, fell down the last 2 steps, landed on right shoulder. No LOC or head trauma. NVI intact on exam Xray on admission with acute displaced comminuted right humeral neck fracture which extends into the humeral head. Possibly due to osteoporosis CT shoulder w/ Acute comminuted displaced impacted right humeral neck and head fracture. Associated right glenohumeral joint effusion with adjacent hemorrhage. He is now s/p p Open Reduction Internal Fixation Right Proximal Humerus Fractur e(Right) Continue PT OT (2) Fall: Plan: Reported he slid out of his stair chair, unable to stop due to chronic b/l LE weakness from his myositis. No other acute trauma noted As above, s/p ORIF with Dr Lopez 11/16 Needing rehab, CM following (3) Leukocytosis: Plan: Could be due to stress or chronic prednisone use No evidence of acute infection Continue to monitor. 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 Asymptomatic BSGs improved today, pharmacy on consult and hopeful to transition to home prednisone for his myositis in AM but will continue for today as outlined (5) Lymphedema: Plan: At baseline per patient and on admission and SCDs in place, elevation appearing improved 11/16 despite IV steroids/IVF with surgery and appears to be related to dependent edema from being in wheelchair most of the time No pain/warmth to suggest cellulitis at this time but skin was cracked (cream applied) and appears better 11/17 and will monitor outpt f/u, would use stockings as able at home (6) BPH loc w urin obs/LUTS: Plan: bhandari placed prior to surgery as not wanting to get up to go/had been retaining monitor activity with therapy, plan to remove later today and monitor for retention issues. likely benefit from flomax but given drop in BP overnight will hold off for now/monitor (7) Inclusion body myositis: Plan: Hydrocortisone 100mg IV x 1 pre-op provided, decadron with surgery and continued on stress hydrocortisone as outlined Will resume his home dose of prednisone 15 mg daily (8) Sleep apnea: Plan: HS CPAP ordered (9) Hypercholesterolemia: Plan: Continue statin, CK minimal elevation 2nd to his IBM as above and continues on statin. No sx reported (10) Acute blood loss anemia: Plan: Acute blood loss anemia Monitor hemoglobin Transfuse if hemoglobin drops below 7 (11) Morbid obesity: Plan: BMI 49 Patient was advised on diet and exercise Plan continued inpatient stay, needing inpatient rehab at discharge per therapy recommendations. likely stable for dc next 24 hours pending BP/resumption of home steroids and BSGs CM sending referral to [facility] and needs insurance approval Admission and Anticipated Discharge Date Admission Date: November 18, 2023 Subjective Patient seen and examined, lying quietly in bed, pain is under good control Review of Systems Review of Systems: All systems reviewed are negative, apart from the ones contained in the history. Physical Exam Physical Exam: The patient is awake, alert and oriented 3, well developed and well nourished, normocephalic and atraumatic, lying in bed and in no acute distress. HEENT--PERRL, EOMI, mucous membranes and oropharynx mildly dry Neck--supple. No JVD. No bruits. Thyroid normal, trachea midline, no adenopathy. Heart--normal S1 and S2. No murmurs, rubs or gallops. Lungs--clear bilaterally, no respiratory distress, no accessory muscle use. Abdomen--normal bowel sounds and soft. Extremities--no cyanosis or clubbing. Chronic leg edema Dermatologic--normal skin turgor, normal color, no abnormal lymph nodes, no rash. Neurologic--cranial nerves II through XII grossly intact. Rheumatologic--normal range of motion. Psychiatric--normal affect. Results & Data Results & Data Vital Signs (Past 12 Hours) Vital Signs Temp Pulse Resp BP Pulse Ox O2 Del Method 11/19/23 07:18 98.8 F 78 18 129/78 100 Room Air PG Care Time/CCT Total # of Minutes Spent Total Time Spent with Patient: Total time spent is greater than 50% in coordination of care (as documented) at patient's floor/unit and/or counseling patient: Coding Level of Care Code 29815 SUB INP/OBS CARE 2MIN Diagnoses Proximal humeral fracture S42.291A Encounter type: initial encounter Fracture alignment: displaced Fracture morphology: other fracture Fracture type: closed Laterality: right Fall W19.XXXA Encounter type: initial encounter Leukocytosis D72.829 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, right eye E10.3291 Lymphedema I89.0 BPH loc w urin obs/LUTS N40.1 Inclusion body myositis G72.41 Sleep apnea G47.30 Hypercholesterolemia E78.00 Acute blood loss anemia D62 Morbid obesity E66.01 Time Spent (min) 35 (1) Proximal humeral fracture Encounter type: initial encounter Fracture alignment: displaced Fracture morphology: other fracture Fracture type: closed Laterality: right Qualified Code(s): S42.291A - Other displaced fracture of upper end of right humerus, initial encounter for closed fracture (2) Fall Encounter type: initial encounter Qualified Code(s): W19.XXXA - Unspecified fall, initial encounter
[2023-11-20] MEDS: LANTUS PER UNIT CHARGE SC SCH (08:47)
--- NOTE | 2023-11-20 10:27 | Orthopedic Progress Note ---
Date of Service November 20, 2023 Assessment & Plan (1) Proximal humeral fracture: Plan: POD 3 s/p Right shoulder proximal humerus open reduction internal fixation with Dr. Lopez Continue sling for comfort. Silverlon (keep in place until 2 week f/u appointment) and Optifoam placed this morning. Continue with pain control. Continue with ice. 50% PWB RUE. PT/OT, gentle ROM as tolerated. Case management for discharge planning/rehab. Follow-up outpatient with [facility] orthopedics in 2 weeks as scheduled. Okay for discharge from ortho standpoint when medically stable and bed available. Admission and Anticipated Discharge Date Admission Date: November 18, 2023 Subjective Patient resting in bed. Every day he states it feels better. He is pleased with how well his shoulder is feeling due to the amount of surgery that he had. Currently does not have a sling on. He has been only using for comfort. Applies ice occasionally. Denies any numbness or tingling in his right upper extremity. Limited range of motion which is normal for him. No significant swelling of the right arm. He is tolerating a regular diet. States he is having some issues with constipation and urinary retention. He is thinking about asking to have the catheter removed today to see if he can urinate while sitting at the edge of the bed. Physical Exam Musculoskeletal: Exam of his right upper extremity: Silverlon is in place of her right shoulder incision. No distal edema. Is able to extend and flex his elbow and pronate and supinate the forearm. He is able to do wrist extension but not able to flex at the MCP PIP or DIP joints. Distal pulses are 1+. Cap refill is brisk. Silverlon is clean, dry and intact with no shadowing. There is an Optifoam dressing on the right elbow due to the abrasion. Results & Data Vital Signs (Past 12 Hours) Vital Signs Temp Pulse Resp BP Pulse Ox O2 Del Method 11/20/23 07:08 37.1 C 75 18 133/79 96 Room Air Laboratory Results 11/20/23 11/19/23 11/19/23 Range/Units 07:29 20:38 16:43 POC Glucose 101 H 109 H 130 H (70-99) mg/dl 11/19/23 Range/Units 11:45 POC Glucose 195 H (70-99) mg/dl (1) Proximal humeral fracture Encounter type: initial encounter Fracture alignment: displaced Fracture morphology: other fracture Fracture type: closed Laterality: right Qualified Code(s): S42.291A - Other displaced fracture of upper end of right humerus, initial encounter for closed fracture
[2023-11-20] MEDS: bisacodyL 10 MG SUPP PR STA (12:09)
--- NOTE | 2023-11-20 13:15 | Hospitalist Progress Note ---
Date of Service November 20, 2023 Assessment & Plan (1) Proximal humeral fracture: Plan: 63yo male presented to the ED after sustaining a fall out of his motorized stair chair due to sliding, fell down the last 2 steps, landed on right shoulder. No LOC or head trauma. NVI intact on exam Xray on admission with acute displaced comminuted right humeral neck fracture which extends into the humeral head. Possibly due to osteoporosis CT shoulder w/ Acute comminuted displaced impacted right humeral neck and head fracture. Associated right glenohumeral joint effusion with adjacent hemorrhage. He is now 3 days s/p Open Reduction Internal Fixation Right Proximal Humerus F racture(Right) Continue PT OT (2) Fall: Plan: Reported he slid out of his stair chair, unable to stop due to chronic b/l LE weakness from his myositis. No other acute trauma noted As above, s/p ORIF with Dr Lopez 11/16 Needing rehab, CM following (3) Leukocytosis: Plan: Could be due to stress or chronic prednisone use No evidence of acute infection Continue to monitor. 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 Asymptomatic BSGs improved today, pharmacy on consult and hopeful to transition to home prednisone for his myositis in AM but will continue for today as outlined (5) Lymphedema: Plan: At baseline per patient and on admission and SCDs in place, elevation appearing improved 11/16 despite IV steroids/IVF with surgery and appears to be related to dependent edema from being in wheelchair most of the time No pain/warmth to suggest cellulitis at this time but skin was cracked (cream applied) and appears better 11/17 and will monitor outpt f/u, would use stockings as able at home (6) BPH loc w urin obs/LUTS: Plan: bhandari placed prior to surgery as not wanting to get up to go/had been retaining monitor activity with therapy, plan to remove later today and monitor for retention issues. likely benefit from flomax but given drop in BP overnight will hold off for now/monitor (7) Inclusion body myositis: Plan: Hydrocortisone 100mg IV x 1 pre-op provided, decadron with surgery and continued on stress hydrocortisone as outlined resume his home dose of prednisone 15 mg daily (8) Sleep apnea: Plan: HS CPAP ordered (9) Hypercholesterolemia: Plan: Continue statin, CK minimal elevation 2nd to his IBM as above and continues on statin. No sx reported (10) Acute blood loss anemia: Plan: Acute blood loss anemia Monitor hemoglobin Transfuse if hemoglobin drops below 7 (11) Morbid obesity: Plan: BMI 49 Patient was advised on diet and exercise (12) Constipation: Plan: Patient has not had a bowel movement in 5 days despite MiraLAX Will add Dulcolax Plan continued inpatient stay, needing inpatient rehab at discharge per therapy recommendations. Stable for discharge to rehab CM sending referral to [place] care and needs insurance approval Admission and Anticipated Discharge Date Admission Date: November 18, 2023 Subjective Patient seen and examined, states he has not had a bowel movement in 5 days Review of Systems Review of Systems: All systems reviewed are negative, apart from the ones contained in the history. Physical Exam Physical Exam: The patient is awake, alert and oriented 3, well developed and well nourished, normocephalic and atraumatic, lying in bed and in no acute distress. HEENT--PERRL, EOMI, mucous membranes and oropharynx mildly dry Neck--supple. No JVD. No bruits. Thyroid normal, trachea midline, no adenopathy. Heart--normal S1 and S2. No murmurs, rubs or gallops. Lungs--clear bilaterally, no respiratory distress, no accessory muscle use. Abdomen--normal bowel sounds and soft. Extremities--no cyanosis or clubbing. Chronic leg edema Dermatologic--normal skin turgor, normal color, no abnormal lymph nodes, no rash. Neurologic--cranial nerves II through XII grossly intact. Rheumatologic--normal range of motion. Psychiatric--normal affect. Results & Data Results & Data Vital Signs (Past 12 Hours) Vital Signs Temp Pulse Resp BP Pulse Ox O2 Del Method 11/20/23 07:08 98.8 F 75 18 133/79 96 Room Air PG Care Time/CCT Total # of Minutes Spent Total Time Spent with Patient: Total time spent is greater than 50% in coordination of care (as documented) at patient's floor/unit and/or counseling patient: Coding Level of Care Code 98071 SUB INP/OBS CARE 235MIN Diagnoses Proximal humeral fracture S42.291A Encounter type: initial encounter Fracture alignment: displaced Fracture morphology: other fracture Fracture type: closed Laterality: right Fall W19.XXXA Encounter type: initial encounter Leukocytosis D72.829 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 (1) Proximal humeral fracture Encounter type: initial encounter Fracture alignment: displaced Fracture morphology: other fracture Fracture type: closed Laterality: right Qualified Code(s): S42.291A - Other displaced fracture of upper end of right humerus, initial encounter for closed fracture (2) Fall Encounter type: initial encounter Qualified Code(s): W19.XXXA - Unspecified fall, initial encounter
--- NOTE | 2023-11-20 13:26 | Pharmacy Report ---
Pharmacy Glycemic Short Note 2 - Date of Service November 20, 2023 - Glycemic Short BSG Results (Last 24 hours): 11/19/23 11/19/23 11/20/23 16:43 20:38 07:29 POC Glucose 130 H 109 H 101 H 11/20/23 11:29 POC Glucose 222 H OUTPATIENT ANTIDIABETIC REGIMEN: * Fiasp 38 units with breakfast, 34 units with lunch, 38 units with dinner * Basaglar 40 units SQ AM * A1c 7.4% 06/20/23, updated A1c ordered ASSESSMENT: 11/19: * Edmundo received 101 units of insulin yesterday (35 were basal) * Fasting BSG slightly below goal range this AM, will decrease basal for this reason and due to hydrocortisone being discontinued and switched back to his home prednisone 15mg * Lunchtime BSGs elevated and tend to downtrend. Will tighten carbohydrate ratio with breakfast. 11/17 * Patient received total of 133 units of insulin yesterday, of which 45 units were basal insulin. BSGs trending down overnight 61 mg/dL - treated per hypoglycemia protocol. Plan to scale back on basal for this evening. Novolog parameters also loosened this AM 11/16 * S/p ORIF humerus this AM, no insulin given this morning, patient received IV Dexamethasone 4mg + Hydrocortisone 100mg IV preop. BSG now 250mg/dl postop. * Will give extra basal and tighten CF/CR at this time to cover steroids, loosen as steroids wear off. 11/15 * 63yo M with history of Crohn's disease, HTN, HLP, Type 1 DM, BALTAZAR on HS CPAP, and inclusion body myositis on chronic prednisone (15mg/day) who presented to the [facility] ED on 11/16/23 after sustaining a fall off his motorized stair chair resulting in Humerus fracture. Pharmacy consulted for glycemic control. * Will start patient on basal bolus insulin and titrate to goal blood sugar. Patient euglycemic on admission, BSG 123mg/dl. PLAN FOR INPATIENT GLYCEMIC CONTROL: * Basal insulin * Lantus 40 units once daily * Bolus insulin-breakfast * NovoLog per scale QDB * Goal Range: Low 110 mg/dL - High 140 mg/dL * Correction Factor: 12 mg/dL/unit * Nutritional / Prandial insulin per carb ratio of 1 unit per 2 grams CHO consumed * Bolus insulin * NovoLog per scale QDL, QDD, HS or Q6hrs while NPO * Goal Range: Low 110 mg/dL - High 140 mg/dL * Correction Factor: 12 mg/dL/unit * Nutritional / Prandial insulin per carb ratio of 1 unit per 2.5 grams CHO consumed
[2023-11-20] MEDS: INSULIN ASPART PER UNIT CHARGE SC SCH (17:02)
[2023-11-20] MEDS: ZOLPIDEM TARTRATE 10 MG TAB PO PRN (21:48)
[2023-11-21] MEDS: INSULIN ASPART PER UNIT CHARGE SC SCH (08:26)
--- NOTE | 2023-11-21 08:30 | Orthopedic Progress Note ---
Date of Service November 21, 2023 Assessment & Plan (1) Proximal humeral fracture: Plan: POD #4 s/p ORIF right proximal humerus fracture, doing as well as expected. Resume diet. Continue with ice. 50% PWB RUE. OOB to chair. Continue pain control. Silverlon (keep in place until 2 week f/u appointment). DVT prophylaxis: ASA 81 mg BID for 3 weeks. PT/OT. D/C planning. Follow-up outpatient with [facility] orthopedics in 2 weeks as scheduled. Okay for discharge from ortho standpoint when medically stable and bed available. Present on Admission?: Yes Admission and Anticipated Discharge Date Admission Date: November 18, 2023 Subjective Right shoulder pain, overall improving Physical Exam Physical Exam: PE: Neurovascularly unchanged for patient, with diminished sensation, limited finger motion, with only MCP flexion, unchanged. 2+ radial pulse. Results & Data Vital Signs (Past 12 Hours) Vital Signs Temp Pulse Resp BP Pulse Ox O2 Del Method 11/21/23 07:54 37.2 C 81 18 145/79 H 97 Room Air 11/20/23 20:43 37.3 C 76 16 170/83 H 97 Room Air Laboratory Results 11/21/23 11/20/23 11/20/23 Range/Units 07:47 20:29 16:29 POC Glucose 117 H 119 H 120 H (70-99) mg/dl 11/20/23 Range/Units 11:29 POC Glucose 222 H (70-99) mg/dl (1) Proximal humeral fracture Encounter type: initial encounter Fracture alignment: displaced Fracture morphology: other fracture Fracture type: closed Laterality: right Qualified Code(s): S42.291A - Other displaced fracture of upper end of right humerus, initial encounter for closed fracture
--- NOTE | 2023-11-21 13:07 | Discharge Summary ---
Date of Service November 21, 2023 Admission HPI Per Admitting Provider Edmundo Rodrigues is a 63yo male with history of Crohn's disease, HTN, HLP, DM, BALTAZAR on HS CPAP, and inclusion body myositis on chronic prednisone who presented to the [facility] ED on 11/16/23 after sustaining a fall off his motorized stair chair. Per the ED staff, the patient was on his motorized stair chair, when it reached the bottom of their steps he fell out of the chair, landing on his right side. He did not hit his head or lose consciousness. EMS was called and gave him 150 mcg of IV Fentanyl. He remained stable in the ED. Labs were significant for a leukocytosis of 19 with neutrophile predominance of 14. Xray of the right arm was read as "Acute displaced comminuted right humeral neck fracture which extends into the humeral head.". The patient was given 1 mg IV dilaudid and his right arm was placed in a sling. We were asked to admit the patient as he will need rehab placement on discharge as his will not be able to safely care for him at home at this time. At the time of the exam the patient was sitting up in bed in significant pain due to his right humerus fracture, his is bedside; history was obtained from both. He has poor baseline ambulatory status due to his myositis. Confirms that he slid out of his motorized stair chair this am, fell down the last 2 steps and landed on his right shoulder. Confirms he did not hit his head or lose consciousness, confirms this. Only pain at this time is his right arm pain. Denies recent fever, chills, chest pain, SOB, abd pain, nausea, vomiting, dysuria, hematuria, melena, worsening LE swelling. When asked, he states that he has had multiple episodes of non-bloody diarrhea over the past 3 days. His confirms that with his current limited functional status she will be unable to safely care for him and rehab will be needed. He is a full code and his would make medical decisions for him if he cannot make them himself. Principal Diagnosis Right humeral fracture Discharge Exam The patient is awake, alert and oriented 3, well developed and well nourished, normocephalic and atraumatic, lying in bed and in no acute distress. HEENT--PERRL, EOMI, mucous membranes and oropharynx mildly dry Neck--supple. No JVD. No bruits. Thyroid normal, trachea midline, no adenopathy. Heart--normal S1 and S2. No murmurs, rubs or gallops. Lungs--clear bilaterally, no respiratory distress, no accessory muscle use. Abdomen--normal bowel sounds and soft. Extremities--no cyanosis or clubbing. Chronic leg edema Dermatologic--normal skin turgor, normal color, no abnormal lymph nodes, no rash. Neurologic--cranial nerves II through XII grossly intact. Rheumatologic--normal range of motion. Psychiatric--normal affect. Discharge Data Allergies Allergy/AdvReac Type Severity Reaction Status Date / Time mercaptopurine AdvReac Severe JAUNDICE Verified 11/16/23 12:19 Consultations 11/16/23 11:16 ED Decision to Admit Stat 11/16/23 11:36 Consult Orthopedic Surgery Routine Procedures Performed Operation Date: 11/17/23 07:30 Actual Procedures p Open Reduction Internal Fixation Right Proximal Humerus Fracture(Right) - Ovi Hilary Lopez MD Ordered Studies 11/16/23 13:07 CT shoulder RT wo con Stat 11/17/23 FL humerus RT 2V Routine 11/17/23 07:38 US - OR guided needle placemen Routine Hospital Course (1) Proximal humeral fracture: 63yo male presented to the ED after sustaining a fall out of his motorized stair chair due to sliding, fell down the last 2 steps, landed on right shoulder. No LOC or head trauma. NVI intact on exam Xray on admission with acute displaced comminuted right humeral neck fracture which extends into the humeral head. Possibly due to osteoporosis CT shoulder w/ Acute comminuted displaced impacted right humeral neck and head fracture. Associated right glenohumeral joint effusion with adjacent hemorrhage. He is now 4 days s/p Open Reduction Internal Fixation Right Proximal Humerus Fracture(Right) Continue PT OT (2) Fall: Reported he slid out of his stair chair, unable to stop due to chronic b/l LE weakness from his myositis. No other acute trauma noted As above, s/p ORIF with Dr Lopez 11/16 Needing rehab, CM following (3) Leukocytosis: Could be due to stress or chronic prednisone use No evidence of acute infection Continue to monitor. 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 Asymptomatic BSGs improved today, pharmacy on consult and hopeful to transition to home prednisone for his myositis in AM but will continue for today as outlined (5) Lymphedema: At baseline per patient and on admission and SCDs in place, elevation appearing improved 11/16 despite IV steroids/IVF with surgery and appears to be related to dependent edema from being in wheelchair most of the time No pain/warmth to suggest cellulitis at this time but skin was cracked (cream applied) and appears better 11/17 and will monitor outpt f/u, would use stockings as able at home (6) BPH loc w urin obs/LUTS: bhandari placed prior to surgery as not wanting to get up to go/had been retaining monitor activity with therapy, plan to remove later today and monitor for retention issues. likely benefit from flomax but given drop in BP overnight will hold off for now/monitor (7) Inclusion body myositis: Hydrocortisone 100mg IV x 1 pre-op provided, decadron with surgery and continued on stress hydrocortisone as outlined resume his home dose of prednisone 15 mg daily (8) Sleep apnea: HS CPAP ordered (9) Hypercholesterolemia: Continue statin, CK minimal elevation 2nd to his IBM as above and continues on statin. No sx reported (10) Acute blood loss anemia: Acute blood loss anemia Monitor hemoglobin Transfuse if hemoglobin drops below 7 (11) Morbid obesity: BMI 49 Patient was advised on diet and exercise (12) Constipation: Patient has not had a bowel movement in 5 days despite MiraLAX Will add Dulcolax Plan Discharge to SNF Stable for discharge to rehab CM sending referral to [place] [facility] and needs insurance approval Total Time Total Time Spent Total Time Spent (In Minutes): 35 Discharge Plan Discharge Items Patient Disposition: Transfer [facility] Fac Reason For Visit: FALL, right humerus fracture Discharge Diagnosis: right humerus fracture Activity: Per Instructions section Non-emergency contact: Primary Care Provider and Surgeon Call non-emergency contact if: you have any medication questions Follow-up/Referrals: Micheal Hathaway III, CRNP [Primary Care Provider] - Margie Caldwell PA-C [Physician Vocal Performer] - 12/02/23 2:30 pm Diet: Regular Addtl Attending Provider Instructions: please follow up with orthopedic surgery Addtl Line Maintenance Supervisor Provider Instructions: Orthopedic Discharge Instructions: Leave silverlon dressing clean, dry and in-tact until 2 week follow up appointment. Any issues please contact our office Recommend PT/OT Non weight bearing RUE Gentle range of motion as tolerated is okay Ice and pain control Sling for comfort Please follow up with [facility] orthopedics in our office in two weeks for post op check and zipline/staple/suture removal Pending Studies at Discharge: No Stand-Alone Forms: My [facility] [employer] Skilled Items Patient informed of condition?: Yes DNR: No Discharge Level of Care: Skilled Communicable Disease: No Discharge Prognosis: Improving Lines: None Urinary Catheter: Yes Medications and DC Order Prescriptions: Continued trazodone 100 mg tablet 100 mg PO HS Qty: 90 3RF duloxetine 60 mg capsule,delayed release(DR/EC) 60 mg PO QPM Qty: 90 3RF lisinopril 5 mg tablet 5 mg PO QAM Qty: 90 1RF zoledronic [id number]-[id number] [Reclast] 5 mg/100 mL piggyback 5 ea IV YEARLY Qty: 100 0RF Rx Instructions: Schedule 06/12/23 @ 1230 gabapentin 300 mg capsule 300 mg PO BID Qty: 180 3RF (DME) FreeStyle [place] 3 Sensor Device See Rx Instructions .Route Qty: 1 12RF Rx Instructions: use to test blood glucose 3 times daily and as needed vedolizumab 300 mg recon soln 300 mg IV Q8WK Qty: 1 8RF multivitamin [Daily Multi-Vitamin] tablet 1 tab PO QAM (DME) OneTouch Ultra Blue Test Strip Strip See Rx Instructions .ROUTE .MEDSUPPLY Qty: 10 Rx Instructions: Test blood sugar once daily PRN diphenoxylate-atropine 2.5-0.025 mg tablet 1 tab PO QID PRN (Reason: diarrhea) Qty: 360 0RF prednisone 10 mg tablet 15 mg PO QAM Fiasp FlexTouch U-100 Insulin 100 unit/mL (3 mL) insulin pen See Rx Instructions subcut DAILY Qty: 90 3RF Rx Instructions: 38 units in AM, 34 units at lunch, 38 units at dinner/supper subcutaneously daily; acetaminophen [Tylenol Extra Strength] 500 mg tablet 1,000 mg PO BID PRN (Reason: Pain) Rx Instructions: OTC (DME) pen needle, diabetic [BD Ultra-Fine Marsha Pen Needle] 32 gauge x 5/32" needle See Rx Instructions .Route Qty: 400 3RF Rx Instructions: Inject insulin four times daily ezetimibe 10 mg tablet 10 mg PO QAM Rx Instructions: TAKE 1 TABLET DAILY insulin glargine [Basaglar KwikPen U-100 Insulin] 100 unit/mL (3 mL) insulin pen 40 unit subcut QAM prednisone 5 mg tablet 5 mg PO UD PRN (Reason: weakness) Rx Instructions: Take 5mg w/ 10mg tablet by mouth once every morning. May take a second 5 mg dose as needed for increased weakness zolpidem 12.5 mg tablet,ext release multiphase 12.5 mg PO HS peg 3350-electrolytes [GaviLyte-G] 236-22.74-6.74 -5.86 gram recon soln 0 ml PO Q10M Rx Instructions: until fecal effluent is clear. Patient hasn't started yet, colonoscopy isn't scheduled until mid/late November Caltrate 600 plus D 600 mg-20 mcg (800 unit) Tablet,Chewable 1 tab PO QAM Discharge Orders: Discharge Order (Routine); Ordered 11/21/23 Ordered By: Saran Kyle/Other Patient Handouts: Managing Type 1 Diabetes Admission Data Admit Date/Time: 11/18/23 11:20 Attending Provider: Saran Erickson Admit Provider: Jesus Ma Primary Care Provider: Micheal Hathaway III Other Providers: Jesus Ma; Ovi Lopez; [place] Coding Level of Care Code 09155 INP/OBS DISCH >30 MIN Diagnoses Proximal humeral fracture S42.291A Encounter type: initial encounter Fracture alignment: displaced Fracture morphology: other fracture Fracture type: closed Laterality: right Fall W19.XXXA Encounter type: initial encounter Leukocytosis D72.829 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
== END 2023-11-21 15:28 | DRG 493 ==
LOC: 3W 09:47 → ED 09:47 → SUATTDRO 11:23 → 3W 13:36 → SUATTDRO 11-18 11:20

== ENCOUNTER 2024-01-03 14:17 | Inpatient (IN) ==
[2024-01-03 14:53] LABS: iSTAT Creatinine 0.3 mg/dl (0.6-1.3); iSTAT Ionized Calcium 1.17 mmol/l (1.12-1.32); iSTAT Potassium 4.1 mmol/L (3.3-5.0)
[2024-01-03 15:12] LABS: Basophils # (auto) 0.04 K/uL (0.00-0.20); Basophils % (auto) 0.2 %; Eosinophils # (auto) 0.14 K/uL (0.00-0.50); Eosinophils % (auto) 0.6 %; Hematocrit (blood only) 50.9 % (42.0-52.0); Hemoglobin 16.9 g/dl (14.0-18.0); Immature Granulocytes # (auto) 0.12 K/uL (0.01-0.20); Immature Granulocytes % (auto) 0.5 %; Lymphocytes # (auto) 0.63 K/uL (1.20-3.40); Lymphocytes % (auto) 2.8 %; Mean Corpuscular Hemoglobin 28.5 pg (25.0-34.0); Mean Corpuscular Hgb Conc 33.2 g/dL (32.0-36.0); Mean Corpuscular Volume 85.8 fL (80.0-100.0); Mean Platelet Volume 10.9 fL (9.4-12.4); Monocytes # (auto) 1.84 K/uL (0.11-0.59); Monocytes % (auto) 8.3 %; Neutrophils # (auto) 19.43 K/uL (1.40-6.50); Neutrophils % (auto) 87.6 %; Platelet Count 316 K/uL (130-400); RDW Coefficient of Variation 13.5 % (11.5-14.5); RDW Standard Deviation 42.5 fL (36.4-46.3); Red Blood Count 5.93 M/uL (4.70-6.10)
--- NOTE | 2024-01-03 15:12 | Emergency Department Note ---
Impression & Plan Fall, Uncontrolled type 1 diabetes mellitus with hyperglycemia, Rhabdomyolysis, Contusion of leg, multiple sites, Non-ST elevation [place] (NSTEMI) ED Provider Note Provider: Ollie Andrade MD DATE OF SERVICE: 01/03/2024 CHIEF COMPLAINT: Fall, got stuck, legs swollen HISTORY OF PRESENT ILLNESS: Patient is a 63-year-old gentleman history of obesity, type 1 diabetes, BPH, hypertension, osteoporosis, long-term steroid use, and recent shoulder surgery for fracture of his right upper arm presenting here today via ambulance from his home. Patient states he had a small wound on his right pinky toe and talked with his doctor yesterday and got a prescription for antibiotics but has not picked them up yet. States that this morning he went to go to the bathroom and got up from the toilet but then got unsteady and fell and got stuck between the toilet the wall heater and the wheelchair. He was stuck there for approximately 5 hours. States he is not does not think he hit his head and does not remember losing consciousness. States he does not believe he had any dizziness or palpitations or significant chest pain. States he is somewhat spread [place] and his pelvis hurts a bit as well as his low back. Does have some notation of some bleeding towards the left scalp as well as bleeding from his toes and significant swelling and bruising to the lower extremities. Does feel gross touch here but they feel little tingly. PAST MEDICAL HISTORY: As noted above MEDICATIONS: Reviewed home medications not on anticoagulants at this time. SOCIAL HISTORY: PHYSICAL EXAM: GENERAL: alert and oriented in no acute distress on stretcher Head: normocephalic and atraumatic EYES: No injection, discharge or icterus. PERRL, EOMI. NECK: Trachea midline. Supple. ENT: Mucous membranes pink and moist. Pharynx without erythema or exudate. LUNGS: Airway patent. No retractions. Breath sounds clear with good air entry bilaterally. HEART: Regular rate and rhythm. No chest wall tenderness ABDOMEN: Soft and non-tender, without guarding or rebound. No masses or inguinal hernias noted. SKIN: Acyanotic, warm, dry, without rashes EXTREMITIES: Without swelling, tenderness or deformity of the upper extremities. The lower extremities from the bilateral knees distally with significant ecchymosis and purplish discoloration and 2-3+ edema with a few small areas of abrasion on the dorsum of the right foot and extending towards the bilateral toes. No crepitus. Soft compartments. Does have capillary refill in the bilateral lower feet. No significant bony tenderness appreciated. NEUROLOGICAL: No focal deficits. No aphasia. No facial droop or slurred speech. Normal strength and tone in the extremities. Sensation to gross touch normal. Ambulatory. EK bpm normal sinus rhythm with LVH findings. No acute ST segment elevation or depression with a QTc of 467. Significant artifact in inferior leads. CONTINUOUS CARDIAC MONITORING: was ordered and showed a heart rate of 90s bpm in normal sinus rhythm GCS 15. Patient's laboratory studies and imaging reviewed. Differential includes Fracture, dislocation, contusion, intra-abdominal, pneumothorax, intrathoracic, intracranial, neurologic, compartment syndrome, rhabdomyolysis, as well as other pathologies. IMPRESSION/MEDICAL DECISION MAKING: Patient tetanus up-to-date. Has some scattered abrasions of the lower feet but no large lacerations appreciated. Has a bit of abrasion to the left scalp just above the ear but no obvious ear injury or hematoma. Will obtain CT of the head it was unclear if he actually hit his head. Will obtain CT imaging abdomen pelvis to look at his pelvis for any injury given the positioning and will complete this with runoff as well to make sure there is good vascular flow to lower extremities. Seems like subcutaneous bruising ecchymosis and edema likely related to the pressure and positioning he was in. CK completed. Question if he may develop rhabdomyolysis but does not seem to have clear compartment syndrome at this time. Will cover with a dose of antibiotics given that he does have a small wound to his left pinky toe and was post to start outpatient antibiotics and now has a few more scrapes. Unable to ambulate at this time due to discomfort. Denies activity and chest or neck or pulmonary complaints. Doubt cervical spine injury. Nexus criteria negative. Is a type I diabetic. Hyperglycemia noted. Blood work here further completed shows leukocytosis 22 likely I think reactive rather than truly infectious. Hemoglobin normal. Troponin significantly elevated likely demand and not having active chest pain. Will be cautious given his trauma and compression injury to the lower extremities regarding anticoagulation at this point. Patient states that when he was stuck he was breathing hard and try to get free for some time. CK elevated 844 and due believe some component of rhabdomyolysis. No anion gap and did have his insulin earlier today. Doubt DKA. Discussed with the patient as well as pharmacy will cover with some insulin. Does have evidence of urinary retention on bladder scan and given his ambulatory difficulties placed Batista catheter. Sent for CT scans. Had to replace his IV myself as it initially malfunctioned. CT reports of the head reassuring. Discussed with Dr. Barahona of radiology regarding the CT of the abdomen pelvis into the legs showing some right abductor intramuscular hemorrhage and several old foot fractures without acute intra-abdominal bleeding. Extensive edema of the lower extremity as well lack of contrast in the arteries of the right lower extremity from the SFA, popliteal, and calf vessels possibly technical. In discussion will obtain arterial ultrasound to see if we can further differentiate. Patient did not seem to have increased pain necessarily on that side compared to the other. Ultrasound report shows arterial ultrasound without significant abnormality or vascular decrease in the right lower extremity. Likely the CT was having technical artifact. Will bring in for treatment of his soft tissue injury/swelling and demand troponin. Hospitalist contacted. Patient in agreement. Will avoid full anticoagulation given the traumatic injury and the fact that this is unlikely to be obstructive CAD and more demand related to the trauma. DIAGNOSIS: Fall, rhabdomyolysis, NSTEMI, hyperglycemia secondary to type 1 diabetes, contusion lower extremities DISPOSITION: Hospitalist will evaluate Patient was agreeable with this plan. Critical Care I have personally spent 44 minutes of critical care time in the direct management of this patient. This includes bedside care, interpretation of diagnostic studies, and testing, discussion with consultants, patient, and other required patient management activities. These 44 minutes is in excess of all separately billable procedures. 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 Crohn's disease (~08/2021) History of migraine HTN (hypertension) Sleep apnea CPAP Type 1 diabetes mellitus on insulin therapy Insomnia Hypertension Hypercholesterolemia Surgical History History of biopsy muscle History of intestinal surgery History of wisdom tooth extraction History of esophagogastroduodenoscopy (EGD) History of colonoscopy History of incision and drainage (2017) I&D of sebaceous cyst right upper back History of surgery (2017) epidermal cyst excision History of cholecystectomy Family History Unknown Breast cancer Father Hearing loss Stroke Diabetes Prostate cancer Mother Hypertension Cancer Heart disease Other Allergies No family history of adverse response to anesthesia No family history of bleeding disorder Denies family history of Ovarian cancer Myocardial infarction Colorectal cancer Social History Smoking Status: Never smoker Tobacco Type: Cigarettes Age Started Using Tobacco: 14; Age Quit Using Tobacco: 17; Second Hand Exposure: No; Do You Dip or Chew Tobacco: No; Hx Alcohol Use: No Hx Substance Use: No Preferred Language: Nicaraguan Communication Ability: Effective Visual Impairment: No Limitations Hearing Ability: Normal Retail Team Leader Required: No Beliefs That Will Affect Care: None marital status: Current Living Situation: Spouse Current Living Situation Comment: Lives with spouse- Jess current occupational status: employed current occupation: security How many Children do You have: 2 Feels Safe at Home: Yes Childhood Exposure to Second-Hand Smoke: Yes Diet: regular caffeine: Yes during the past year weight has: remained stable Dental Care, Regularly: Yes Physical Activity Frequency: Does not Exercise Seatbelt Use: always Sunscreen Use: Yes Assistive Devices: Scooter/Electric Scooter Allergies Allergies Allergy/AdvReac Type Severity Reaction Status Date / Time mercaptopurine AdvReac Severe JAUNDICE Verified 01/02/24 17:40 Home Meds Home Medications Medication Instructions Recorded Confirmed multivitamin (Daily Multi-Vitamin 1 tab PO QAM 03/04/19 01/03/24 tablet) acetaminophen 500 mg tablet 1,000 mg PO BID PRN Pain 07/05/23 01/03/24 (Tylenol Extra Strength) blood sugar diagnostic (OneTouch #10 ea 07/05/23 01/02/24 Ultra Blue Test Strip) prednisone 10 mg tablet 15 mg PO QAM 09/17/23 01/03/24 ezetimibe 10 mg tablet 10 mg PO QAM 11/15/23 01/03/24 insulin glargine 100 unit/mL (3 40 unit subcut QAM 11/15/23 01/03/24 mL) subcutaneous pen (Basaglar KwikPen U-100 Insulin) prednisone 5 mg tablet 5 mg PO UD PRN weakness 11/16/23 01/03/24 insulin aspart See Rx Instructions subcut DAILY 12/06/23 01/03/24 (niacinamide)(U-100) 100 unit/mL(3 mL) subcutaneous pen (Fiasp FlexTouch U-100 Insulin) Previous Rx's Medication Instructions Recorded trazodone 100 mg tablet 100 mg PO HS #90 tabs 05/23/22 duloxetine 60 mg capsule,delayed 60 mg PO QPM #90 caps 03/11/23 release lisinopril 5 mg tablet 5 mg PO QAM #90 tabs 03/20/23 zoledronic acid 5 mg/100 mL in 5 ea IV YEARLY #100 mL 05/31/23 mannitol 5 %-water intravenous piggybck (Reclast) gabapentin 300 mg capsule 300 mg PO BID #180 caps 06/24/23 BD Ultra-Fine Marsha Pen Needle 32 #400 ea 07/05/23 gauge x 5/32" (pen needle, diabetic) blood-glucose sensor (FreeStyle #1 ea 08/13/23 [place] 3 Sensor device) vedolizumab 300 mg intravenous 300 mg IV Q8WK #1 ea 10/22/23 solution diphenoxylate-atropine 2.5 1 tab PO QID PRN diarrhea #360 tabs 12/11/23 mg-0.025 mg tablet zolpidem 12.5 mg tablet,extended 12.5 mg PO HS insomnia #90 tabs 12/11/23 release,multiphase cyclobenzaprine 10 mg tablet 10 mg PO HS PRN muscle spasm #30 12/24/23 tabs cephalexin 500 mg capsule 500 mg PO QID 14 days #56 caps 01/02/24 Results & Data (ED) Vital Signs Vital Signs - 24 hr 01/03/24 14:27 01/03/24 14:44 01/03/24 17:51 Temperature 36.6 C Temperature Source Oral Pulse Rate 72 98 H 91 H Respiratory Rate 20 Respiratory Effort / Characteristics Non-Labored Spontaneous Respiratory Depth Normal Blood Pressure 141/92 H Blood Pressure Mean 108 Pulse Oximetry 100 Oxygen Delivery Method Room Air Sepsis Recent Fever Within 48 Hours No Sepsis New/Unexplained Change in Mental Status No Sepsis Action Taken by Nursing No Action Required Laboratory Data 01/03/24 14:30 01/03/24 14:30 Lab Results 01/03/24 01/03/24 01/03/24 Range/Units 14:30 14:40 16:35 WBC 22.20 H (4.8-10.8) K/ul RBC 5.93 (4.70-6.10) M/uL Hgb 16.9 (14.0-18.0) g/dl POC Hgb 18.0 (14.0-18.0) g/dl Hct 50.9 (42.0-52.0) % POC Hct 53 H (42-52) % MCV 85.8 (80.0-100.0) fL MCH 28.5 (25.0-34.0) pg MCHC 33.2 (32.0-36.0) g/dL RDW Std Deviation 42.5 (36.4-46.3) fL RDW Coeff of Amy 13.5 (11.5-14.5) % Plt Count 316 (130-400) K/uL MPV 10.9 (9.4-12.4) fL Immature Gran % (Auto) 0.5 % Neut % (Auto) 87.6 % Lymph % (Auto) 2.8 % [place] % (Auto) 8.3 % Eos % (Auto) 0.6 % Baso % (Auto) 0.2 % Neut # (Auto) 19.43 H (1.40-6.50) K/uL Lymph # (Auto) 0.63 L (1.20-3.40) K/uL [place] # (Auto) 1.84 H (0.11-0.59) K/uL Eos # (Auto) 0.14 (0.00-0.50) K/uL Baso # (Auto) 0.04 (0.00-0.20) K/uL Immature Gran # (Auto) 0.12 (0.01-0.20) K/uL PT 10.7 (9.0-12.0) Seconds INR 1.0 (0.9-1.1) POC Sodium 135 (135-144) mmol/L Sodium 136 (136-145) mmol/L POC Potassium 4.1 (3.3-5.0) mmol/L Potassium 4.1 (3.5-5.1) mmol/L POC Chloride 96 L (101-112) mmol/L Chloride 96 L (98-107) mmol/L Carbon Dioxide 29 (21-32) mmol/L POC Total CO2 29 (24-31) mmol/L Anion Gap 11 (3-11) POC Anion Gap 15.0 L (16-25) mmol/L POC BUN 15 (7-18) mg/dl BUN 15 (6-23) mg/dl Creatinine 0.39 L (0.6-1.4) mg/dl POC Creatinine 0.3 L (0.6-1.3) mg/dl Est Cr Clr Drug Dosing 244.6 ml/min Est GFR ( Amer) 148.0 ml/min Est GFR (Non-Af Amer) 127.7 ml/min BUN/Creatinine Ratio 38.5 H (10-20) Glucose 303 H* (70-99(Fasting)) mg/dl POC Glucose (70-99) mg/dl POC Glucose (other) 306 H (70-99) mg/dl Calcium 9.7 (8.6-10.3) mg/dl POC Ioniz Calcium [place] 1.17 (1.12-1.32) mmol/l Total Bilirubin 1.0 (0.2-1.0) mg/dl AST 42 H (13-39) U/L ALT 47 (7-52) U/L Alkaline Phosphatase 86 (34-104) U/L Total Creatine Kinase 844 H (30-223) U/L Troponin I High Sens 1402.9 H* (0-20) pg/ml Total Protein 6.9 (6.0-8.3) gm/dl Albumin 4.2 (3.4-5.0) gm/dl Globulin 2.7 (2.5-4.0) gm/dl Albumin/Globulin Ratio 1.6 (0.9-2) Urine Color Yellow Urine Appearance Clear (Clear) Urine pH 6.0 (4.5-7.5) Ur Specific [place] 1.025 (1.000-1.030) Urine Protein Negative (Negative) Urine Glucose (UA) 3+ H (Negative) Urine Ketones 3+ H (Negative) Urine Blood Negative (Negative) Urine Nitrite Negative (Negative) Urine Bilirubin Negative (Negative) Urine Urobilinogen Negative (Negative) Ur Leukocyte Esterase Negative (Negative) 01/03/24 01/03/24 Range/Units 16:40 17:51 WBC (4.8-10.8) K/ul RBC (4.70-6.10) M/uL Hgb (14.0-18.0) g/dl POC Hgb (14.0-18.0) g/dl Hct (42.0-52.0) % POC Hct (42-52) % MCV (80.0-100.0) fL MCH (25.0-34.0) pg MCHC (32.0-36.0) g/dL RDW Std Deviation (36.4-46.3) fL RDW Coeff of Amy (11.5-14.5) % Plt Count (130-400) K/uL MPV (9.4-12.4) fL Immature Gran % (Auto) % Neut % (Auto) % Lymph % (Auto) % [place] % (Auto) % Eos % (Auto) % Baso % (Auto) % Neut # (Auto) (1.40-6.50) K/uL Lymph # (Auto) (1.20-3.40) K/uL [place] # (Auto) (0.11-0.59) K/uL Eos # (Auto) (0.00-0.50) K/uL Baso # (Auto) (0.00-0.20) K/uL Immature Gran # (Auto) (0.01-0.20) K/uL PT (9.0-12.0) Seconds INR (0.9-1.1) POC Sodium (135-144) mmol/L Sodium (136-145) mmol/L POC Potassium (3.3-5.0) mmol/L Potassium (3.5-5.1) mmol/L POC Chloride (101-112) mmol/L Chloride (98-107) mmol/L Carbon Dioxide (21-32) mmol/L POC Total CO2 (24-31) mmol/L Anion Gap (3-11) POC Anion Gap (16-25) mmol/L POC BUN (7-18) mg/dl BUN (6-23) mg/dl Creatinine (0.6-1.4) mg/dl POC Creatinine (0.6-1.3) mg/dl Est Cr Clr Drug Dosing ml/min Est GFR ( Amer) ml/min Est GFR (Non-Af Amer) ml/min BUN/Creatinine Ratio (10-20) Glucose (70-99(Fasting)) mg/dl POC Glucose 261 H (70-99) mg/dl POC Glucose (other) (70-99) mg/dl Calcium (8.6-10.3) mg/dl POC Ioniz Calcium [place] (1.12-1.32) mmol/l Total Bilirubin (0.2-1.0) mg/dl AST (13-39) U/L ALT (7-52) U/L Alkaline Phosphatase (34-104) U/L Total Creatine Kinase (30-223) U/L Troponin I High Sens 1640.4 H* (0-20) pg/ml Total Protein (6.0-8.3) gm/dl Albumin (3.4-5.0) gm/dl Globulin (2.5-4.0) gm/dl Albumin/Globulin Ratio (0.9-2) Urine Color Urine Appearance (Clear) Urine pH (4.5-7.5) Ur Specific [place] (1.000-1.030) Urine Protein (Negative) Urine Glucose (UA) (Negative) Urine Ketones (Negative) Urine Blood (Negative) Urine Nitrite (Negative) Urine Bilirubin (Negative) Urine Urobilinogen (Negative) Ur Leukocyte Esterase (Negative) Administered Medications Sodium Chloride (Nss) 1,000 mls @ 80 mls/hr IV .[id number] WAQAR Stop: 01/04/24 09:14 Last Admin: 01/03/24 21:31 Dose: 80 mls/hr Documented By: ARMEN Daptomycin 350 mg/ Syringe 7 mls @ 3.5 mls/min IV Q24H WAQAR; Protocol Stop: 01/10/24 20:59 Last Admin: 01/03/24 21:26 Dose: 3.5 mls/min Documented By: ARMEN Cefepime HCl 2,000 mg/ Syringe 20 mls @ 5 mls/min IV Q12H WAQAR; Protocol Stop: 01/10/24 20:59 Last Admin: 01/03/24 21:26 Dose: 5 mls/min Documented By: ARMEN Discontinued Medications Sodium Chloride (Nss) 1,000 mls @ 999 mls/hr IV .Q1H1M WAQAR Stop: 01/03/24 15:45 Last Infusion: 01/03/24 18:12 Dose: Infused Documented By: Admin: 01/03/24 15:44 Dose: 999 mls/hr Documented By: ARMEN Ceftriaxone Sodium (Rocephin) 2,000 mg in 50 mls @ 100 mls/hr IV NOW STA Stop: 01/03/24 15:14 Last Infusion: 01/03/24 18:12 Dose: Infused Documented By: Admin: 01/03/24 15:44 Dose: 100 mls/hr Documented By: ARMEN Acetaminophen (Ofirmev) 1,000 mg in 100 mls @ 400 mls/hr IV NOW STA Stop: 01/03/24 20:36 Last Infusion: 01/03/24 22:25 Dose: Infused Documented By: [id number] Admin: 01/03/24 21:01 Dose: 400 mls/hr Documented By: ARMEN Insulin Aspart (Insulin Aspart Per Unit Charge) 8 units SC NOW STA Stop: 01/03/24 15:51 Last Admin: 01/03/24 16:15 Dose: 8 units Documented By: JESUS ALBERTO Co-signed By: ARMEN Ioversol (Optiray 320 125ml) 115 ml IV ONCE ONE Stop: 01/03/24 17:05 Last Admin: 01/03/24 17:05 Dose: 115 ml Documented By: OPAL Imaging Data Radiologist's Impression: Aorta w/Runoff CTA 01/03/24 14:45 CT ANGIOGRAPHY OF THE ABDOMEN AND PELVIS WITH LOWER EXTREMITY RUNOFF CLINICAL HISTORY: fall got stuck, pelvic pain, swelling to legs/crush COMPARISON STUDY: CT of the abdomen and pelvis November 27, 2022. Bilateral lower extremity Doppler ultrasound May 20, 2012. Left foot radiographs June 06, 2022. TECHNIQUE: Helical axial images of the abdomen and pelvis were obtained during arterial phase with lower extremity runoff. Intravenous injection 115 cc Optiray 320 IV was uneventful. Sagittal and coronal reconstructions were viewed as well as maximal intensity projections on an independent 3-D workstation. Automated exposure control was utilized for the study. A dose lowering technique was utilized adhering to the principles of ALARA. FINDINGS: No pneumatosis, free air or portal venous gas is present. The caliber of the abdominal aorta is normal. The abdominal aorta and branch vessels within the abdomen are patent. The right common iliac, internal iliac, external iliac, and common femoral arteries are patent. The proximal to mid right superficial femoral artery is patent. No contrast is identified within the distal right superficial femoral artery as well as the right calf vessels. No contrast is identified within the vessels within the right foot. The left common iliac, internal iliac and external iliac veins are patent. There is mild plaque within the left femoral bifurcation. The left common femoral, superficial femoral, popliteal, anterior tibial, posterior tibial and dorsalis pedis vessels are patent. Calf vessels are suboptimally assessed on this exam but are grossly patent. There is no biliary ductal dilatation status post cholecystectomy. Spleen, adrenal glands, kidneys and pancreas are unremarkable. The appendix is normal. There is colonic diverticulosis without evidence for acute diverticulitis. A Batista balloon within the bladder is noted. The bladder is collapsed. Heterogeneous appearance of the right adductor muscles is noted. Extensive atrophy within the lower extremity musculature is present. No acute fractures within the lumbar spine, pelvis or hips are identified. There is an L1 kyphoplasty. There no fractures within the right lower extremity. A fracture of the left first metatarsal is likely chronic. There is an age indeterminate fracture of the left cuboid which is mildly displaced and comminuted. Extensive soft tissue swelling of the dorsal bilateral feet is noted. In addition, there is lower extremity swelling. IMPRESSION: 1. No contrast identified within the distal right superficial femoral artery, popliteal artery and right calf vessels. This favors age indeterminate vessel occlusion. However, the findings could be technical. Right lower extremity arterial Doppler ultrasound could be obtained for further evaluation. Patent left lower extremity vessels. 2. No acute process within the abdomen. 3. Heterogeneity of the right adductor musculature. This is likely chronic however a small amount of intramuscular hemorrhage would be difficult to exclude. 4. Several left foot fractures, likely chronic when correlating with left foot radiographs of June 06, 2022.. 5. Extensive dorsal edema of the bilateral feet. ACT 112: Negative or not required by law. Electronically signed by: Dilip Barahona M.D. 01/03/2024 5:[address] 01/03/24 14:45 CT head/brain wo con CLINICAL HISTORY: fall Technique: Contiguous axial CT images of the head were acquired from the base of the skull to the vertex without intravenous contrast administration. Images were viewed in brain, subdural and bone windows. Automated dose lowering techniques and/or adjustment according to patient size were utilized for this exam. Comparison: Comparison is made to CT head 05/24/2022 Findings: The ventricles, basal cisterns, and cerebral sulci are normal. There is no acute intracranial hemorrhage or evidence of acute territorial infarction. Neither mass effect, shift of the midline structures, nor abnormal extra-axial fluid collections are shown. Imaged portions of the paranasal sinuses and mastoid air cells are clear. The orbits appear normal. There are no acute fractures of the calvaria or scalp swelling. Impression: No acute intracranial hemorrhage, no evidence of acute territorial infarction or other acute intracranial disease process. ACT 112: Negative or not required by law. Electronically signed by: Rakesh Thompson M.D. 01/03/2024 4:20 PM Duplex Scan Lower Extremity Artery 01/03/24 17:39 Exam(s): US ARTERIAL RIGHT LOWER EXTREMITY EXAM: US Duplex Right Lower Extremity Arteries CLINICAL HISTORY: Reason for exam: swelling. TECHNIQUE: Real-time duplex ultrasound scan of the right lower extremity arteries integrating B-mode two-dimensional vascular structure, Doppler spectral analysis and color flow Doppler imaging. COMPARISON: CT 01/03/2024 FINDINGS: Right common femoral artery: 120 cm/s. No occlusion or significant stenosis on color flow and spectral Doppler imaging. Normal waveform. Right superficial femoral artery: 86 cm/s. No occlusion or significant stenosis on color flow and spectral Doppler imaging. Normal waveform. Right popliteal artery: 83 cm/s. No occlusion or significant stenosis on color flow and spectral Doppler imaging. Normal waveform. Right calf/foot arteries: Peroneal 35 cm/s. SCOURING PADS SUPERVISOR 47 cm/s. A TA 113 cm/s. Dorsalis pedis 81 cm/s. Normal waveforms. Soft tissues: Subcutaneous soft tissue distally. IMPRESSION: No arterial occlusion or flow limiting stenosis. Electronically signed by: Mickey Farias MD 01/03/24 20:03 PM Discharge Plan Visit Data Chief Complaint: Fall Stated Complaint: GLF, Wheelchair bound pt ED Provider: Ollie Andrade Discharge Problem: Fall, Uncontrolled type 1 diabetes mellitus with hyperglycemia, Rhabdomyolysis, Contusion of leg, multiple sites, Non-ST elevation [place] (NSTEMI) Patient Disposition: Admitted As Inpatient Discharge Instructions Interventions: ED Discharge Assessment Last Done: 05/10/24 22:09 Discharge Problem: Fall Qualifiers: Encounter type: initial encounter Qualified Code(s): W19.XXXA - Unspecified fall, initial encounter Rhabdomyolysis Qualifiers: Rhabdomyolysis type: traumatic Encounter type: initial encounter Qualified Code(s): T79.6XXA - Traumatic ischemia of muscle, initial encounter Contusion of leg, multiple sites Qualifiers: Encounter type: initial encounter Laterality: unspecified laterality Qualified Code(s): S80.10XA - Contusion of unspecified lower leg, initial encounter
[2024-01-03 15:19] LABS: Prothrombin Time 10.7 Seconds (9.0-12.0)
[2024-01-03 15:43] LABS: Albumin Globulin Ratio 1.6 (0.9-2); Albumin Level 4.2 gm/dl (3.4-5.0); BUN Creatinine Ratio 38.5 (10-20); Calcium 9.7 mg/dl (8.6-10.3); Creatinine Clr Calc Pharmacy 244.6 ml/min; Est GFR (Non-African American) 127.7 ml/min; Globulin 2.7 gm/dl (2.5-4.0); Potassium 4.1 mmol/L (3.5-5.1); Total Protein 6.9 gm/dl (6.0-8.3); Troponin I High Sensitivity 1402.9 pg/ml (0-20)
[2024-01-03] MEDS: SODIUM CHLORIDE 0.9% 1,000 ML IV SCH ×2 (15:44→21:31)
[2024-01-03] MEDS: cefTRIAXone SODIUM 2,000 MG/50 ML BAG IV STA (15:44)
[2024-01-03] MEDS: INSULIN ASPART PER UNIT CHARGE SC STA (16:15)
--- NOTE | 2024-01-03 16:21 | CT Scan Report ---
CT head/brain wo con CLINICAL HISTORY: fall Technique: Contiguous axial CT images of the head were acquired from the base of the skull to the frankie eduard without intravenous contrast administration. Images were viewed in brain, [facility]. Automated dose lowering techniques and/or adjustment according to patient size were utilized for this exam. Comparison: Comparison is made to CT head 05/24/2022 Findings: The ventricles, basal cisterns, and cerebral sulci are normal. There is no acute intracranial hemorrh age or evidence of acute territorial infarction. Neither mass effect, shift of the midline structures , nor abnormal extra-axial fluid collections are shown. Imaged portions of the paranasal sinuses and mastoid air cells are clear. The orbits appear normal. There are no acute fractures of the calvaria or scalp swelling. Impression: No acute intracranial hemorrhage, no evidence of acute territorial infarction or other acute intracra nial disease process. ACT 112: Negative or not required by law. Electronically signed by: Rakesh Thompson M.D. 01/03/2024 4:20 PM
[2024-01-03 16:59] LABS: Appearance Urine Clear (Clear); Bilirubin Urine Negative (Negative); Blood Urine Negative (Negative); Color Urine Yellow; Glucose Urine UA 3+ (Negative); Ketones Urine 3+ (Negative); Leukocyte Esterase Urine Negative (Negative); Nitrite Urine Negative (Negative); Protein Urine Negative (Negative); Specific Gravity Urine 1.025 (1.000-1.030); Urobilinogen Urine Negative (Negative)
[2024-01-03] MEDS: OPTIRAY 320 125ml IV ONE (17:05)
--- NOTE | 2024-01-03 17:44 | CT Scan Report ---
CT ANGIOGRAPHY OF THE ABDOMEN AND PELVIS WITH LOWER EXTREMITY RUNOFF CLINICAL HISTORY: fall got stuck, pelvic pain, swelling to legs/crush COMPARISON STUDY: CT of the abdomen and pelvis November 27, 2022. Bilateral lower extremity Doppler ultr asound May 20, 2012. Left foot radiographs June 06, 2022. TECHNIQUE: Helical axial images of the abdomen and pelvis were obtained during arterial phase with lo wer extremity runoff. Intravenous injection 115 cc Optiray 320 IV was uneventful. Sagittal and kaur l reconstructions were viewed as well as maximal intensity projections on an independent 3-D workstat ion. Automated exposure control was utilized for the study. A dose lowering technique was utilized a dhering to the principles of ALARA. FINDINGS: No pneumatosis, free air or portal venous gas is present. The caliber of the abdominal aort a is normal. The abdominal aorta and branch vessels within the abdomen are patent. The right common i liac, internal iliac, external iliac, and common femoral arteries are patent. The proximal to mid rig ht superficial femoral artery is patent. No contrast is identified within the distal right superficia l femoral artery as well as the right calf vessels. No contrast is identified within the vessels with in the right foot. The left common iliac, internal iliac and external iliac veins are patent. There is mild plaque withi n the left femoral bifurcation. The left common femoral, superficial femoral, popliteal, anterior tib ial, posterior tibial and dorsalis pedis vessels are patent. Calf vessels are suboptimally assessed o n this exam but are grossly patent. There is no biliary ductal dilatation status post cholecystectomy. Spleen, adrenal glands, kidneys an d pancreas are unremarkable. The appendix is normal. There is colonic diverticulosis without evidence for acute diverticulitis. A Batista balloon within the bladder is noted. The bladder is collapsed. Het erogeneous appearance of the right adductor muscles is noted. Extensive atrophy within the lower extr emity musculature is present. No acute fractures within the lumbar spine, pelvis or hips are identifi ed. There is an L1 kyphoplasty. There no fractures within the right lower extremity. A fracture of th e left first metatarsal is likely chronic. There is an age indeterminate fracture of the left cuboid which is mildly displaced and comminuted. Extensive soft tissue swelling of the dorsal bilateral feet is noted. In addition, there is lower extremity swelling. IMPRESSION: 1. No contrast identified within the distal right superficial femoral artery, popliteal artery and ri ght calf vessels. This favors age indeterminate vessel occlusion. However, the findings could be tech nical. Right lower extremity arterial Doppler ultrasound could be obtained for further evaluation. Pa tent left lower extremity vessels. 2. No acute process within the abdomen. 3. Heterogeneity of the right adductor musculature. This is likely chronic however a small amount of intramuscular hemorrhage would be difficult to exclude. 4. Several left foot fractures, likely chronic when correlating with left foot radiographs of June 06, 2022.. 5. Extensive dorsal edema of the bilateral feet. ACT 112: Negative or not required by law. Electronically signed by: Dilip Barahona M.D. 01/03/2024 5:41 PM
--- NOTE | 2024-01-03 20:04 | Ultrasound Report ---
Exam(s): US ARTERIAL RIGHT LOWER EXTREMITY EXAM: US Duplex Right Lower Extremity Arteries CLINICAL HISTORY: Reason for exam: swelling. TECHNIQUE: Real-time duplex ultrasound scan of the right lower extremity arteries integrating B-mode two-dimensional vascular structure, Doppler spectral analysis and color flow Doppler imaging. COMPARISON: CT 01/03/2024 FINDINGS: Right common femoral artery: 120 cm/s. No occlusion or significant stenosis on color flow and spectral Doppler imaging. Normal waveform. Right superficial femoral artery: 86 cm/s. No occlusion or significant stenosis on color flow and spectral Doppler imaging. Normal waveform. Right popliteal artery: 83 cm/s. No occlusion or significant stenosis on color flow and spectral Doppler imaging. Normal waveform. Right calf/foot arteries: Peroneal 35 cm/s. D[employer]EL [employer] 47 cm/s. A TA 113 cm/s. Dorsalis pedis 81 cm/s. Normal waveforms. Soft tissues: Subcutaneous soft tissue distally. IMPRESSION: No arterial occlusion or flow limiting stenosis. Electronically signed by: Mickey Farias MD 01/03/24 20:03 PM
--- NOTE | 2024-01-03 20:49 | History & Physical Report ---
Date of Service January 03, 2024 Assessment & Plan (1) Rhabdomyolysis: (2) Non-ST elevation NC (NSTEMI): (3) Contusion of leg, multiple sites: (4) Cellulitis of both lower extremities: (5) Uncontrolled type 1 diabetes mellitus with hyperglycemia: (6) BPH loc w urin obs/LUTS: (7) Inclusion body myositis: (8) Regional enteritis (Crohn's disease): Plan Rhabdomyolysis- Total CK 844 Troponin 1640.4 Both are likely secondary to rhabdo, dehydration Follow both serially Status post 1 L normal saline in the ED Bilateral lower extremity cellulitis- Left lower extremity worse than right Left lower extremity with bruising Given ceftriaxone 2 g IV in ED Placed on daptomycin IV and cefepime IV Would likely benefit from Unna boots Consult wound care Diabetes mellitus- Glucose 303 on admission Change insulin glargine Basaglar to standard glargine same dosing Placed on Accu-Cheks with NovoLog SSI 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 Hold off on stress dosing for now, due to significant hyperglycemia If persistent fatigue, would add stress dosing later Crohn's disease- On Entyvio in the outpatient setting and prednisone History of Present Illness Chief Complaint: The patient is brought to the emergency department via ambulance from his home, after having been found stuck between the toilet, wall heater and his wheelchair as he was trying to get up off of his high commode seat back to his wheelchair Primary Care Provider: Micheal Hathaway, III, ADRIÁN The patient is a 63-year-old male with a past medical history including morbid obesity, acute blood loss anemia, proximal humeral fracture, diabetes mellitus type 1, nonproliferative diabetic retinopathy, BPH with LUTS, 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 The patient was transferring from his high seat commode, back to his wheelchair, when he slipped and fell, and became lodged between the toilet, the wall heater in his wheelchair. He was reportedly there for about 5 hours. He reports that he had visited his physician yesterday, and had gotten an antibiotic prescription for his lower extremities, but not been able to get it filled yet. He denies any head trauma. Allergies Allergy/AdvReac Type Severity Reaction Status Date / Time mercaptopurine AdvReac Severe JAUNDICE Verified 01/02/24 17:40 Home Medications Medication Instructions Recorded Confirmed Type multivitamin (Daily Multi-Vitamin 1 tab PO QAM 03/04/19 01/03/24 History tablet) trazodone 100 mg tablet 100 mg PO HS #90 tabs 05/23/22 01/03/24 Rx duloxetine 60 mg capsule,delayed 60 mg PO QPM #90 caps 03/11/23 01/03/24 Rx release lisinopril 5 mg tablet 5 mg PO QAM #90 tabs 03/20/23 01/03/24 Rx zoledronic acid 5 mg/100 mL in 5 ea IV YEARLY #100 mL 05/31/23 01/03/24 Rx mannitol 5 %-water intravenous piggybck (Reclast) gabapentin 300 mg capsule 300 mg PO BID #180 caps 06/24/23 01/03/24 Rx BD Ultra-Fine Marsha Pen Needle 32 #400 ea 07/05/23 01/02/24 Rx gauge x 5/32" (pen needle, diabetic) acetaminophen 500 mg tablet 1,000 mg PO BID PRN Pain 07/05/23 01/03/24 History (Tylenol Extra Strength) blood sugar diagnostic (OneTouch #10 ea 07/05/23 01/02/24 History Ultra Blue Test Strip) blood-glucose sensor (FreeStyle #1 ea 08/13/23 01/02/24 Rx [place] 3 Sensor device) prednisone 10 mg tablet 15 mg PO QAM 09/17/23 01/03/24 History vedolizumab 300 mg intravenous 300 mg IV Q8WK #1 ea 10/22/23 01/03/24 Rx solution ezetimibe 10 mg tablet 10 mg PO QAM 11/15/23 01/03/24 History insulin glargine 100 unit/mL (3 40 unit subcut QAM 11/15/23 01/03/24 History mL) subcutaneous pen (Basaglar KwikPen U-100 Insulin) prednisone 5 mg tablet 5 mg PO UD PRN weakness 11/16/23 01/03/24 History insulin aspart See Rx Instructions subcut DAILY 12/06/23 01/03/24 History (niacinamide)(U-100) 100 unit/mL(3 mL) subcutaneous pen (Fiasp FlexTouch U-100 Insulin) diphenoxylate-atropine 2.5 1 tab PO QID PRN diarrhea #360 tabs 12/11/23 01/03/24 Rx mg-0.025 mg tablet zolpidem 12.5 mg tablet,extended 12.5 mg PO HS insomnia #90 tabs 12/11/23 01/03/24 Rx release,multiphase cyclobenzaprine 10 mg tablet 10 mg PO HS PRN muscle spasm #30 12/24/23 01/03/24 Rx tabs cephalexin 500 mg capsule 500 mg PO QID 14 days #56 caps 01/02/24 01/03/24 Rx Past Med/Surg History Medical History (Updated 01/03/24 @ 23:11 by Shukri Herrera MD) Diabetic retinopathy Constipation Osteoporosis Neuropathy Statin myopathy Dysfunction of right eustachian tube Mixed conductive and sensorineural hearing loss of right ear with restricted hearing of left ear Chronic steroid use Wheelchair bound History of intestinal obstruction Chronic back pain Osteoarthritis Diverticulosis 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 Crohn's disease (~08/2021) History of migraine HTN (hypertension) Sleep apnea CPAP Type 1 diabetes mellitus on insulin therapy Insomnia Hypertension Hypercholesterolemia Surgical History History of biopsy muscle History of intestinal surgery History of wisdom tooth extraction History of esophagogastroduodenoscopy (EGD) History of colonoscopy History of incision and drainage (2016) I&D of sebaceous cyst right upper back History of surgery (2017) epidermal cyst excision History of cholecystectomy Family History Unknown Breast cancer Father Hearing loss Stroke Diabetes Prostate cancer Mother Hypertension Cancer Heart disease Other Allergies No family history of adverse response to anesthesia No family history of bleeding disorder Denies family history of Ovarian cancer Myocardial infarction Colorectal cancer Social History Smoking Status: Never smoker Tobacco Type: Cigarettes Age Started Using Tobacco: 14; Age Quit Using Tobacco: 17; Second Hand Exposure: No; Do You Dip or Chew Tobacco: No; Tobacco Cessation Education Requested by Patient: No Hx Alcohol Use: No Hx Substance Use: No Preferred Language: Hungarian Communication Ability: Effective Visual Impairment: No Limitations Hearing Ability: Normal Hand Box Folder Required: No Beliefs That Will Affect Care: None marital status: Current Living Situation: Spouse Current Living Situation Comment: Lives with spouse- Jess current occupational status: employed current occupation: security How many Children do You have: 2 Other Information That Helps Us Care for You: No Feels Safe at Home: Yes Safety Concerns: Feels Safe At This Time Childhood Exposure to Second-Hand Smoke: Yes Diet: regular caffeine: Yes during the past year weight has: remained stable Dental Care, Regularly: Yes Physical Activity Frequency: Does not Exercise Seatbelt Use: always Sunscreen Use: Yes Assistive Devices: Glasses and Wheelchair Review of Systems Review of Systems: The patient denies chest pain, palpitations, shortness of breath, dyspnea on exertion, cough, sore throat, fevers, chills, sweats, nausea, vomiting, diarrhea , constipation, abdominal pain, pelvic pain, blood in urine or stool, dysuria, urinary frequency or urgency, lightheadedness, dizziness, headache, memory loss, loss of consciousness, focal weakness, numbness or tingling in arms, generalized arthralgias or myalgias, neck pain, or night sweats. The review of systems is otherwise negative other than for that already noted above, and at least 10 systems have been reviewed. Physical Exam Physical Exam: The patient is awake, alert and oriented 3, well developed and well nourished, normocephalic and atraumatic, lying in bed and in no acute distress. HEENT--PERRL, EOMI, mucous membranes and oropharynx mildly dry. Neck--supple. No JVD. No bruits. Thyroid normal, trachea midline, no adenopathy. Heart--normal S1 and S2. No murmurs, rubs or gallops. Lungs--clear bilaterally, no respiratory distress, no accessory muscle use. Abdomen--normal bowel sounds and soft. Nontender. Nondistended, no hernias or masses, no organomegaly. Extremities--1+ bilateral pretibial pitting edema. 2+ pedal edema left greater than right Dermatologic--bilateral lower extremities with moderately severe erythema, left greater than right, and oozing on the left Neurologic--cranial nerves II through XII grossly intact. Rheumatologic--limited exam Psychiatric--normal affect. Results & Data Results & Data Vital Signs (Past 12 Hours) Vital Signs Temp Pulse Resp BP Pulse Ox O2 Del Method 01/03/24 17:51 91 H 01/03/24 14:44 98 H 01/03/24 14:27 36.6 C 72 20 141/92 H 100 Room Air Laboratory Results Laboratory Results WBC 22.20 K/ul (4.8-10.8) H 01/03/24 14:30 RBC 5.93 M/uL (4.70-6.10) 01/03/24 14:30 Hgb 16.9 g/dl (14.0-18.0) 01/03/24 14:30 POC Hgb 18.0 g/dl (14.0-18.0) 01/03/24 14:40 Hct 50.9 % (42.0-52.0) 01/03/24 14:30 POC Hct 53 % (42-52) H 01/03/24 14:40 MCV 85.8 fL (80.0-100.0) 01/03/24 14:30 MCH 28.5 pg (25.0-34.0) 01/03/24 14:30 MCHC 33.2 g/dL (32.0-36.0) 01/03/24 14:30 RDW Std Deviation 42.5 fL (36.4-46.3) 01/03/24 14:30 RDW Coeff of Amy 13.5 % (11.5-14.5) 01/03/24 14:30 Plt Count 316 K/uL (130-400) 01/03/24 14:30 MPV 10.9 fL (9.4-12.4) 01/03/24 14:30 Immature Gran % (Auto) 0.5 % 01/03/24 14:30 Neut % (Auto) 87.6 % 01/03/24 14:30 Lymph % (Auto) 2.8 % 01/03/24 14:30 [place] % (Auto) 8.3 % 01/03/24 14:30 Eos % (Auto) 0.6 % 01/03/24 14:30 Baso % (Auto) 0.2 % 01/03/24 14:30 Neut # (Auto) 19.43 K/uL (1.40-6.50) H 01/03/24 14:30 Lymph # (Auto) 0.63 K/uL (1.20-3.40) L 01/03/24 14:30 [place] # (Auto) 1.84 K/uL (0.11-0.59) H 01/03/24 14:30 Eos # (Auto) 0.14 K/uL (0.00-0.50) 01/03/24 14:30 Baso # (Auto) 0.04 K/uL (0.00-0.20) 01/03/24 14:30 Immature Gran # (Auto) 0.12 K/uL (0.01-0.20) 01/03/24 14:30 PT 10.7 Seconds (9.0-12.0) 01/03/24 14:30 INR 1.0 (0.9-1.1) 01/03/24 14:30 POC Sodium 135 mmol/L (135-144) 01/03/24 14:40 Sodium 136 mmol/L (136-145) 01/03/24 14:30 POC Potassium 4.1 mmol/L (3.3-5.0) 01/03/24 14:40 Potassium 4.1 mmol/L (3.5-5.1) 01/03/24 14:30 POC Chloride 96 mmol/L (101-112) L 01/03/24 14:40 Chloride 96 mmol/L (98-107) L 01/03/24 14:30 Carbon Dioxide 29 mmol/L (21-32) 01/03/24 14:30 POC Total CO2 29 mmol/L (24-31) 01/03/24 14:40 Anion Gap 11 (3-11) 01/03/24 14:30 POC Anion Gap 15.0 mmol/L (16-25) L 01/03/24 14:40 POC BUN 15 mg/dl (7-18) 01/03/24 14:40 BUN 15 mg/dl (6-23) 01/03/24 14:30 Creatinine 0.39 mg/dl (0.6-1.4) L 01/03/24 14:30 POC Creatinine 0.3 mg/dl (0.6-1.3) L 01/03/24 14:40 Est Cr Clr Drug Dosing 244.6 ml/min 01/03/24 14:30 Est GFR ( Amer) 148.0 ml/min 01/03/24 14:30 Est GFR (Non-Af Amer) 127.7 ml/min 01/03/24 14:30 BUN/Creatinine Ratio 38.5 (10-20) H 01/03/24 14:30 Glucose 303 mg/dl (70-99(Fasting)) H* 01/03/24 14:30 POC Glucose 175 mg/dl (70-99) H 01/03/24 22:31 POC Glucose (other) 306 mg/dl (70-99) H 01/03/24 14:40 Calcium 9.7 mg/dl (8.6-10.3) 01/03/24 14:30 POC Ioniz Calcium [place] 1.17 mmol/l (1.12-1.32) 01/03/24 14:40 Total Bilirubin 1.0 mg/dl (0.2-1.0) 01/03/24 14:30 AST 42 U/L (13-39) H 01/03/24 14:30 ALT 47 U/L (7-52) 01/03/24 14:30 Alkaline Phosphatase 86 U/L (34-104) 01/03/24 14:30 Total Creatine Kinase 844 U/L (30-223) H 01/03/24 14:30 Troponin I High Sens 1640.4 pg/ml (0-20) H* 01/03/24 16:40 Total Protein 6.9 gm/dl (6.0-8.3) 01/03/24 14:30 Albumin 4.2 gm/dl (3.4-5.0) 01/03/24 14:30 Globulin 2.7 gm/dl (2.5-4.0) 01/03/24 14:30 Albumin/Globulin Ratio 1.6 (0.9-2) 01/03/24 14:30 Urine Color Yellow 01/03/24 16:35 Urine Appearance Clear (Clear) 01/03/24 16:35 Urine pH 6.0 (4.5-7.5) 01/03/24 16:35 Ur Specific [place] 1.025 (1.000-1.030) 01/03/24 16:35 Urine Protein Negative (Negative) 01/03/24 16:35 Urine Glucose (UA) 3+ (Negative) H 01/03/24 16:35 Urine Ketones 3+ (Negative) H 01/03/24 16:35 Urine Blood Negative (Negative) 01/03/24 16:35 Urine Nitrite Negative (Negative) 01/03/24 16:35 Urine Bilirubin Negative (Negative) 01/03/24 16:35 Urine Urobilinogen Negative (Negative) 01/03/24 16:35 Ur Leukocyte Esterase Negative (Negative) 01/03/24 16:35 Impressions Aorta w/Runoff CTA 01/03/24 14:45 CT ANGIOGRAPHY OF THE ABDOMEN AND PELVIS WITH LOWER EXTREMITY RUNOFF CLINICAL HISTORY: fall got stuck, pelvic pain, swelling to legs/crush COMPARISON STUDY: CT of the abdomen and pelvis November 27, 2022. Bilateral lower extremity Doppler ultrasound May 20, 2012. Left foot radiographs June 06, 2022. TECHNIQUE: Helical axial images of the abdomen and pelvis were obtained during arterial phase with lower extremity runoff. Intravenous injection 115 cc Optiray 320 IV was uneventful. Sagittal and coronal reconstructions were viewed as well as maximal intensity projections on an independent 3-D workstation. Automated exposure control was utilized for the study. A dose lowering technique was utilized adhering to the principles of ALARA. FINDINGS: No pneumatosis, free air or portal venous gas is present. The caliber of the abdominal aorta is normal. The abdominal aorta and branch vessels within the abdomen are patent. The right common iliac, internal iliac, external iliac, and common femoral arteries are patent. The proximal to mid right superficial femoral artery is patent. No contrast is identified within the distal right superficial femoral artery as well as the right calf vessels. No contrast is identified within the vessels within the right foot. The left common iliac, internal iliac and external iliac veins are patent. There is mild plaque within the left femoral bifurcation. The left common femoral, superficial femoral, popliteal, anterior tibial, posterior tibial and dorsalis pedis vessels are patent. Calf vessels are suboptimally assessed on this exam but are grossly patent. There is no biliary ductal dilatation status post cholecystectomy. Spleen, adrenal glands, kidneys and pancreas are unremarkable. The appendix is normal. There is colonic diverticulosis without evidence for acute diverticulitis. A Batista balloon within the bladder is noted. The bladder is collapsed. Heterogeneous appearance of the right adductor muscles is noted. Extensive atrophy within the lower extremity musculature is present. No acute fractures within the lumbar spine, pelvis or hips are identified. There is an L1 kyphoplasty. There no fractures within the right lower extremity. A fracture of the left first metatarsal is likely chronic. There is an age indeterminate fracture of the left cuboid which is mildly displaced and comminuted. Extensive soft tissue swelling of the dorsal bilateral feet is noted. In addition, there is lower extremity swelling. IMPRESSION: 1. No contrast identified within the distal right superficial femoral artery, popliteal artery and right calf vessels. This favors age indeterminate vessel occlusion. However, the findings could be technical. Right lower extremity arterial Doppler ultrasound could be obtained for further evaluation. Patent left lower extremity vessels. 2. No acute process within the abdomen. 3. Heterogeneity of the right adductor musculature. This is likely chronic however a small amount of intramuscular hemorrhage would be difficult to exclude. 4. Several left foot fractures, likely chronic when correlating with left foot radiographs of June 06, 2022.. 5. Extensive dorsal edema of the bilateral feet. ACT 112: Negative or not required by law. Electronically signed by: Dilip Barahona M.D. 01/03/2024 5:[address] 01/03/24 14:45 CT head/brain wo con CLINICAL HISTORY: fall Technique: Contiguous axial CT images of the head were acquired from the base of the skull to the vertex without intravenous contrast administration. Images were viewed in brain, subdural and bone windows. Automated dose lowering techniques and/or adjustment according to patient size were utilized for this exam. Comparison: Comparison is made to CT head 05/24/2022 Findings: The ventricles, basal cisterns, and cerebral sulci are normal. There is no acute intracranial hemorrhage or evidence of acute territorial infarction. Neither mass effect, shift of the midline structures, nor abnormal extra-axial fluid col lections are shown. Imaged portions of the paranasal sinuses and mastoid air cells are clear. The orbits appear normal. There are no acute fractures of the calvaria or scalp swelling. Impression: No acute intracranial hemorrhage, no evidence of acute territorial infarction or other acute intracranial disease process. ACT 112: Negative or not required by law. Electronically signed by: Rakesh Thompson M.D. 01/03/2024 4:20 PM Duplex Scan Lower Extremity Artery 01/03/24 17:39 Exam(s): US ARTERIAL RIGHT LOWER EXTREMITY EXAM: US Duplex Right Lower Extremity Arteries CLINICAL HISTORY: Reason for exam: swelling. TECHNIQUE: Real-time duplex ultrasound scan of the right lower extremity arteries integrating B-mode two-dimensional vascular structure, Doppler spectral analysis and color flow Doppler imaging. COMPARISON: CT 01/03/2024 FINDINGS: Right common femoral artery: 120 cm/s. No occlusion or significant stenosis on color flow and spectral Doppler imaging. Normal waveform. Right superficial femoral artery: 86 cm/s. No occlusion or significant stenosis on color flow and spectral Doppler imaging. Normal waveform. Right popliteal artery: 83 cm/s. No occlusion or significant stenosis on color flow and spectral Doppler imaging. Normal waveform. Right calf/foot arteries: Peroneal 35 cm/s. PATIENT RELATIONS SPECIALIST 47 cm/s. A TA 113 cm/s. Dorsalis pedis 81 cm/s. Normal waveforms. Soft tissues: Subcutaneous soft tissue distally. IMPRESSION: No arterial occlusion or flow limiting stenosis. Electronically signed by: Mickey Farias MD 01/03/24 20:03 PM Code Status & VTE Plan Code Status Full code VTE Prophylaxis Plan VTE Prophylaxis will be ordered: Yes PG Care Time/CCT Total # of Minutes Spent Total Time Spent with Patient: Total time spent is greater than 50% in coordination of care (as documented) at patient's floor/unit and/or counseling patient: Coding Level of Care Code 40280 INT INP/OBS CARE 3MIN Diagnoses Rhabdomyolysis T79.6XXA Encounter type: initial encounter Rhabdomyolysis type: traumatic Non-ST elevation NC (NSTEMI) I21.4 Contusion of leg, multiple sites S80.10XA Encounter type: initial encounter Laterality: unspecified laterality Cellulitis of both lower extremities L03.115; L03.116 Uncontrolled type 1 diabetes mellitus with hyperglycemia E10.65 BPH loc w urin obs/LUTS N40.1 Inclusion body myositis G72.41 Crohn's disease without complication, unspecified gastrointestinal tract location K50.90 Gastrointestinal tract location: unspecified location Digestive disease complication type: without complication (1) Rhabdomyolysis Encounter type: initial encounter Rhabdomyolysis type: traumatic Qualified Code(s): T79.6XXA - Traumatic ischemia of muscle, initial encounter (3) Contusion of leg, multiple sites Encounter type: initial encounter Laterality: unspecified laterality Qualified Code(s): S80.10XA - Contusion of unspecified lower leg, initial encounter (8) Regional enteritis (Crohn's disease) Gastrointestinal tract location: unspecified location Digestive disease complication type: without complication Qualified Code(s): K50.90 - Crohn's disease, unspecified, without complications
[2024-01-03] MEDS: ACETAMINOPHEN 1,000 MG/100 ML VIAL IV STA (21:01)
[2024-01-03] MEDS: DAPTOmycin 350 MG in SYRINGE 0 ML IV SCH (21:26)
[2024-01-03] MEDS: CEFEPIME 2,000 MG in SYRINGE 0 ML IV SCH (21:26)
[2024-01-03] MEDS ORDERED: ONDANSETRON INJ 2 MG/ML 2 ML VIAL IV PRN (22:15)
[2024-01-03] MEDS ORDERED: GLUCAGON FOR INJ 1 MG VIAL SQ PRN (22:15)
[2024-01-03] MEDS ORDERED: DEXTROSE 50% 50 ML SYRINGE IV PRN (22:15)
[2024-01-03] MEDS ORDERED: GLUCOSE 10 TAB/TUBE PO PRN (22:15)
[2024-01-03] MEDS ORDERED: CYCLOBENZAPRINE HCL 10 MG TAB PO PRN (22:15)
[2024-01-03] MEDS ORDERED: CARBOHYDRATES FOR HYPOGLYCEMIA PO PRN (22:15)
[2024-01-03] MEDS ORDERED: GLUCOSE 40% GEL 15 GM TUBE PO PRN (22:15)
--- NOTE | 2024-01-03 22:57 | Electrocardiogram Report ---
Test Reason : Blood Pressure : / mmHG Vent. Rate : 098 BPM Atrial Rate : 098 BPM P-R Int : 130 ms QRS Dur : 094 ms QT Int : 366 ms P-R-T Axes : 023 -25 073 degrees QTc Int : 467 ms Normal sinus rhythm Left ventricular hypertrophy with repolarization abnormality ( R in aVL ) Abnormal ECG When compared with ECG of 16-NOV-2023 10:38, Non-specific change in ST segment in Inferior leads Confirmed by Jun Lao ([id number]) on 01/03/2024 10:57:30 PM Referred By: REFERRED SELF Confirmed By:Jun Lao
[2024-01-03] MEDS: INSULIN ASPART PER UNIT CHARGE SC SCH (23:12)
[2024-01-03] MEDS: ZOLPIDEM TARTRATE 5 MG TAB PO SCH (23:13)
[2024-01-03] MEDS: DULoxetine HCL 60 MG CAP PO SCH (23:13)
[2024-01-03] MEDS: GABAPENTIN 300 MG CAP PO SCH (23:13)
[2024-01-03] MEDS: traZODone HCL 100 MG TAB PO SCH (23:13)
[2024-01-04 06:16] LABS: Basophils # (auto) 0.05 K/uL (0.00-0.20); Basophils % (auto) 0.4 %; Eosinophils # (auto) 0.19 K/uL (0.00-0.50); Eosinophils % (auto) 1.6 %; Hematocrit (blood only) 44.7 % (42.0-52.0); Hemoglobin 14.7 g/dl (14.0-18.0); Immature Granulocytes # (auto) 0.08 K/uL (0.01-0.20); Immature Granulocytes % (auto) 0.7 %; Lymphocytes # (auto) 2.54 K/uL (1.20-3.40); Lymphocytes % (auto) 21.3 %; Mean Corpuscular Hemoglobin 28.5 pg (25.0-34.0); Mean Corpuscular Hgb Conc 32.9 g/dL (32.0-36.0); Mean Corpuscular Volume 86.8 fL (80.0-100.0); Mean Platelet Volume 10.8 fL (9.4-12.4); Monocytes # (auto) 1.68 K/uL (0.11-0.59); Monocytes % (auto) 14.1 %; Neutrophils # (auto) 7.41 K/uL (1.40-6.50); Neutrophils % (auto) 61.9 %; Platelet Count 302 K/uL (130-400); RDW Coefficient of Variation 13.7 % (11.5-14.5); RDW Standard Deviation 43.4 fL (36.4-46.3); Red Blood Count 5.15 M/uL (4.70-6.10); White Blood Count 11.95 K/ul (4.8-10.8)
[2024-01-04 07:20] LABS: Estimated Average Glucose 169 mg/dl; Hemoglobin A1C 7.5 % (4.5-5.6)
[2024-01-04 08:27] LABS: Alanine Aminotransferase 35 U/L (7-52); Albumin Globulin Ratio 1.7 (0.9-2); Albumin Level 3.3 gm/dl (3.4-5.0); Alkaline Phosphatase 69 U/L (34-104); Anion Gap 8 (3-11); Aspartate Aminotransferase 39 U/L (13-39); BUN Creatinine Ratio 36.7 (10-20); Bilirubin,Total 0.9 mg/dl (0.2-1.0); Blood Urea Nitrogen 11 mg/dl (6-23); Calcium 8.5 mg/dl (8.6-10.3); Carbon Dioxide 28 mmol/L (21-32); Chloride 103 mmol/L (98-107); Creatine Kinase 537 U/L (30-223); Creatinine Clr Calc Pharmacy 317.6 ml/min; Est GFR (African American) > 150.0 ml/min; Est GFR (Non-African American) 142.3 ml/min; Glucose 147 mg/dl (70-99(Fasting)); Magnesium 1.7 mg/dl (1.7-2.4); Sodium 139 mmol/L (136-145); Total Protein 5.3 gm/dl (6.0-8.3)
[2024-01-04 08:34] LABS: Troponin I High Sensitivity 1404.5 pg/ml (0-20)
[2024-01-04] MEDS: EZETIMIBE 10 MG TAB PO SCH (08:34)
[2024-01-04] MEDS: MULTIVITAMIN TAB PO SCH (08:34)
[2024-01-04] MEDS: lisinopril 5 MG TAB PO SCH (08:34)
[2024-01-04] MEDS ORDERED: LANTUS PER UNIT CHARGE SQ SCH (09:00)
[2024-01-04] MEDS: ACETAMINOPHEN 325 MG TAB PO PRN (09:24)
[2024-01-04] MEDS: LANTUS PER UNIT CHARGE SQ SCH (09:25)
--- NOTE | 2024-01-04 12:18 | Cardiology Consultation ---
Date of Consultation January 04, 2024 Assessment & Plan (1) Elevated troponin: Plan 1. Elevated troponin: It is unclear why the patient underwent an evaluation of cardiac biomarkers. The circumstances leading up to his fall were not suggestive of coronary syndrome or cardiac event. It is very likely that his period of inactivity, relative rhabdomyolysis and possibly even strenuous exertion lead to elevation in his biomarkers. Do not think this is indicative of an acute coronary syndrome. He has not had symptoms consistent with acute coronary syndrome. We will obtain an echocardiogram and in the absence of notable wall motion abnormalities or LV dysfunction I think we will conclude our cardiac evaluation. 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 This is resulted in significant muscle weakness. He has affectively wheelchair bound, but is able to transfer himself. It seems that last evening when he was on his elevated toilet he bent over and fell. Unfortunately, the patient had which time self and between the toilet and another structure in his bathroom. He described his legs is being splayed out. He attempted to move her quite vigorously on several occasions, but could not extricate himself. His neighbor eventually checked on him and he was brought to the hospital for an evaluation. He believes he was in this position for 5 hours. The patient did not report any new symptoms leading up to this episode. As noted above he is very sedentary, but is able to transfer himself. He did not endorse symptoms recently of shortness of breath or chest pain at any time. No dizziness or lightheadedness. No sense of palpitation. Currently he is feeling well. He does have some discomfort in his perineal area and right buttock. No chest pain. No breathing difficulty. Allergies Allergy/AdvReac Type Severity Reaction Status Date / Time mercaptopurine AdvReac Severe JAUNDICE Verified 01/02/24 17:40 Home Medications Medication Instructions Recorded Confirmed Type multivitamin (Daily Multi-Vitamin 1 tab PO QAM 03/04/19 01/03/24 History tablet) trazodone 100 mg tablet 100 mg PO HS #90 tabs 05/23/22 01/03/24 Rx duloxetine 60 mg capsule,delayed 60 mg PO QPM #90 caps 03/11/23 01/03/24 Rx release lisinopril 5 mg tablet 5 mg PO QAM #90 tabs 03/20/23 01/03/24 Rx zoledronic acid 5 mg/100 mL in 5 ea IV YEARLY #100 mL 05/31/23 01/03/24 Rx mannitol 5 %-water intravenous piggybck (Reclast) gabapentin 300 mg capsule 300 mg PO BID #180 caps 06/24/23 01/03/24 Rx BD Ultra-Fine Marsha Pen Needle 32 #400 ea 07/05/23 01/02/24 Rx gauge x 5/32" (pen needle, diabetic) acetaminophen 500 mg tablet 1,000 mg PO BID PRN Pain 07/05/23 01/03/24 History (Tylenol Extra Strength) blood sugar diagnostic (OneTouch #10 ea 07/05/23 01/02/24 History Ultra Blue Test Strip) blood-glucose sensor (FreeStyle #1 ea 08/13/23 01/02/24 Rx [place] 3 Sensor device) prednisone 10 mg tablet 15 mg PO QAM 09/17/23 01/03/24 History vedolizumab 300 mg intravenous 300 mg IV Q8WK #1 ea 10/22/23 01/03/24 Rx solution ezetimibe 10 mg tablet 10 mg PO QAM 11/15/23 01/03/24 History insulin glargine 100 unit/mL (3 40 unit subcut QAM 11/15/23 01/03/24 History mL) subcutaneous pen (Basaglar KwikPen U-100 Insulin) prednisone 5 mg tablet 5 mg PO UD PRN weakness 11/16/23 01/03/24 History insulin aspart See Rx Instructions subcut DAILY 12/06/23 01/03/24 History (niacinamide)(U-100) 100 unit/mL(3 mL) subcutaneous pen (Fiasp FlexTouch U-100 Insulin) diphenoxylate-atropine 2.5 1 tab PO QID PRN diarrhea #360 tabs 12/11/23 01/03/24 Rx mg-0.025 mg tablet zolpidem 12.5 mg tablet,extended 12.5 mg PO HS insomnia #90 tabs 12/11/23 01/03/24 Rx release,multiphase cyclobenzaprine 10 mg tablet 10 mg PO HS PRN muscle spasm #30 12/24/23 01/03/24 Rx tabs cephalexin 500 mg capsule 500 mg PO QID 14 days #56 caps 01/02/24 01/03/24 Rx Patient History Medical History (Updated 01/04/24 @ 12:16 by Matthias Rea MD) Diabetic retinopathy Constipation Osteoporosis Neuropathy Statin myopathy Dysfunction of right eustachian tube Mixed conductive and sensorineural hearing loss of right ear with restricted hearing of left ear Chronic steroid use Wheelchair bound History of intestinal obstruction Chronic back pain Osteoarthritis Diverticulosis 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 Crohn's disease (~08/2021) History of migraine HTN (hypertension) Sleep apnea CPAP Type 1 diabetes mellitus on insulin therapy Insomnia Hypertension Hypercholesterolemia Surgical History History of biopsy muscle History of intestinal surgery History of wisdom tooth extraction History of esophagogastroduodenoscopy (EGD) History of colonoscopy History of incision and drainage (2016) I&D of sebaceous cyst right upper back History of surgery (2017) epidermal cyst excision History of cholecystectomy Family History Unknown Breast cancer Father Hearing loss Stroke Diabetes Prostate cancer Mother Hypertension Cancer Heart disease Other Allergies No family history of adverse response to anesthesia No family history of bleeding disorder Denies family history of Ovarian cancer Myocardial infarction Colorectal cancer Social History Smoking Status: Never smoker Tobacco Type: Cigarettes Age Started Using Tobacco: 14; Age Quit Using Tobacco: 17; Second Hand Exposure: No; Do You Dip or Chew Tobacco: No; Tobacco Cessation Education Requested by Patient: No Hx Alcohol Use: No Hx Substance Use: No Preferred Language: Czech Communication Ability: Effective Visual Impairment: No Limitations Hearing Ability: Normal [employer] Required: No Beliefs That Will Affect Care: None marital status: Current Living Situation: Spouse Current Living Situation Comment: Lives with spouse- Jess current occupational status: employed current occupation: security How many Children do You have: 2 Other Information That Helps Us Care for You: No Feels Safe at Home: Yes Safety Concerns: Feels Safe At This Time Childhood Exposure to Second-Hand Smoke: Yes Diet: regular caffeine: Yes during the past year weight has: remained stable Dental Care, Regularly: Yes Physical Activity Frequency: Does not Exercise Seatbelt Use: always Sunscreen Use: Yes Assistive Devices: Glasses and Wheelchair Review of Systems Review of Systems: Per HPI. Patient does report some chronic pain involving the right leg. Also chronic lower extremity edema. He denies orthopnea and commonly sleeps on his side. Physical Exam Physical Exam: The patient is alert and oriented. Mood and affect appeared normal. He answered all questions appropriately. HEENT: Pupils are equal and reactive to light and accommodation. Extraocular movements are intact. The sclerae are anicteric. Neuro: Cranial nerves intact Lungs: Clear to auscultation bilaterally. He has good air movement without use of accessory muscles. No rales wheezes or rhonchi. Cardiac: Heart demonstrates a regular rate and rhythm. Normal S1 and S2. No murmurs on examination. Pulses: The patient has palpable radial pulses bilaterally that are equal in intensity Extremities: There was no evidence of hypoperfusion. There is no cyanosis or clubbing. Moderate lower extremity edema bilaterally. Some trophic changes involving the lower extremities. Skin: I did not appreciate any rashes on examination today. Results & Data Vital Signs (Past 12 Hours) Vital Signs Temp Pulse Pulse Resp BP Pulse Ox O2 Del Method 01/04/24 11:46 37.0 C 98 H 16 98/60 L 97 Room Air 01/04/24 07:30 37.0 C 101 H 18 112/75 97 Room Air 01/04/24 07:25 100 H 01/04/24 03:39 36.7 C 91 H 18 112/71 99 Room Air Laboratory Results Abnormal Lab Results 01/03/24 01/03/24 01/03/24 14:30 14:40 16:35 WBC 22.20 H RBC 5.93 Hgb 16.9 POC Hgb 18.0 Hct 50.9 POC Hct 53 H MCV 85.8 MCH 28.5 MCHC 33.2 RDW Std Deviation 42.5 RDW Coeff of Amy 13.5 Plt Count 316 MPV 10.9 Immature Gran % (Auto) 0.5 Neut % (Auto) 87.6 Lymph % (Auto) 2.8 Bates % (Auto) 8.3 Eos % (Auto) 0.6 Baso % (Auto) 0.2 Neut # (Auto) 19.43 H Lymph # (Auto) 0.63 L Bates # (Auto) 1.84 H Eos # (Auto) 0.14 Baso # (Auto) 0.04 Immature Gran # (Auto) 0.12 PT 10.7 INR 1.0 POC Sodium 135 Sodium 136 POC Potassium 4.1 Potassium 4.1 POC Chloride 96 L Chloride 96 L Carbon Dioxide 29 POC Total CO2 29 Anion Gap 11 POC Anion Gap 15.0 L POC BUN 15 BUN 15 Creatinine 0.39 L POC Creatinine 0.3 L Est Cr Clr Drug Dosing 244.6 Est GFR ( Amer) 148.0 Est GFR (Non-Af Amer) 127.7 BUN/Creatinine Ratio 38.5 H Glucose 303 H* POC Glucose POC Glucose (other) 306 H Estimat Average Glucose Hemoglobin A1c Calcium 9.7 POC Ioniz Calcium Mayur 1.17 Magnesium Total Bilirubin 1.0 AST 42 H ALT 47 Alkaline Phosphatase 86 Total Creatine Kinase 844 H Troponin I High Sens 1402.9 H* Total Protein 6.9 Albumin 4.2 Globulin 2.7 Albumin/Globulin Ratio 1.6 Urine Color Yellow Urine Appearance Clear Urine pH 6.0 Ur Specific [place] 1.025 Urine Protein Negative Urine Glucose (UA) 3+ H Urine Ketones 3+ H Urine Blood Negative Urine Nitrite Negative Urine Bilirubin Negative Urine Urobilinogen Negative Ur Leukocyte Esterase Negative 01/03/24 01/03/24 01/03/24 16:40 17:51 22:31 WBC RBC Hgb POC Hgb Hct POC Hct MCV MCH MCHC RDW Std Deviation RDW Coeff of Amy Plt Count MPV Immature Gran % (Auto) Neut % (Auto) Lymph % (Auto) Bates % (Auto) Eos % (Auto) Baso % (Auto) Neut # (Auto) Lymph # (Auto) Bates # (Auto) Eos # (Auto) Baso # (Auto) Immature Gran # (Auto) PT INR POC Sodium Sodium POC Potassium Potassium POC Chloride Chloride Carbon Dioxide POC Total CO2 Anion Gap POC Anion Gap POC BUN BUN Creatinine POC Creatinine Est Cr Clr Drug Dosing Est GFR ( Amer) Est GFR (Non-Af Amer) BUN/Creatinine Ratio Glucose POC Glucose 261 H 175 H POC Glucose (other) Estimat Average Glucose Hemoglobin A1c Calcium POC Ioniz Calcium Mayur Magnesium Total Bilirubin AST ALT Alkaline Phosphatase Total Creatine Kinase Troponin I High Sens 1640.4 H* Total Protein Albumin Globulin Albumin/Globulin Ratio Urine Color Urine Appearance Urine pH Ur Specific [place] Urine Protein Urine Glucose (UA) Urine Ketones Urine Blood Urine Nitrite Urine Bilirubin Urine Urobilinogen Ur Leukocyte Esterase 01/03/24 01/04/24 01/04/24 22:40 05:19 07:17 WBC 11.95 H D RBC 5.15 Hgb 14.7 POC Hgb Hct 44.7 POC Hct MCV 86.8 MCH 28.5 MCHC 32.9 RDW Std Deviation 43.4 RDW Coeff of Amy 13.7 Plt Count 302 MPV 10.8 Immature Gran % (Auto) 0.7 Neut % (Auto) 61.9 Lymph % (Auto) 21.3 Bates % (Auto) 14.1 Eos % (Auto) 1.6 Baso % (Auto) 0.4 Neut # (Auto) 7.41 H Lymph # (Auto) 2.54 Bates # (Auto) 1.68 H Eos # (Auto) 0.19 Baso # (Auto) 0.05 Immature Gran # (Auto) 0.08 PT INR POC Sodium Sodium Cancelled 139 POC Potassium Potassium Cancelled 4.0 POC Chloride Chloride Cancelled 103 Carbon Dioxide Cancelled 28 POC Total CO2 Anion Gap Cancelled 8 POC Anion Gap POC BUN BUN Cancelled 11 Creatinine Cancelled 0.30 L POC Creatinine Est Cr Clr Drug Dosing Cancelled 317.6 Est GFR ( Amer) Cancelled > 150.0 Est GFR (Non-Af Amer) Cancelled 142.3 BUN/Creatinine Ratio Cancelled 36.7 H Glucose Cancelled 147 H POC Glucose POC Glucose (other) Estimat Average Glucose 169 Hemoglobin A1c 7.5 H Calcium Cancelled 8.5 L POC Ioniz Calcium Mayur Magnesium Cancelled 1.7 Total Bilirubin Cancelled 0.9 AST Cancelled 39 ALT Cancelled 35 Alkaline Phosphatase Cancelled 69 Total Creatine Kinase Cancelled 537 H Troponin I High Sens 2704.9 H* D Cancelled 1404.5 H* D Total Protein Cancelled 5.3 L D Albumin Cancelled 3.3 L Globulin Cancelled 2.0 L Albumin/Globulin Ratio Cancelled 1.7 Urine Color Urine Appearance Urine pH Ur Specific [place] Urine Protein Urine Glucose (UA) Urine Ketones Urine Blood Urine Nitrite Urine Bilirubin Urine Urobilinogen Ur Leukocyte Esterase 01/04/24 01/04/24 07:32 11:48 WBC RBC Hgb POC Hgb Hct POC Hct MCV MCH MCHC RDW Std Deviation RDW Coeff of Amy Plt Count MPV Immature Gran % (Auto) Neut % (Auto) Lymph % (Auto) Bates % (Auto) Eos % (Auto) Baso % (Auto) Neut # (Auto) Lymph # (Auto) Bates # (Auto) Eos # (Auto) Baso # (Auto) Immature Gran # (Auto) PT INR POC Sodium Sodium POC Potassium Potassium POC Chloride Chloride Carbon Dioxide POC Total CO2 Anion Gap POC Anion Gap POC BUN BUN Creatinine POC Creatinine Est Cr Clr Drug Dosing Est GFR ( Amer) Est GFR (Non-Af Amer) BUN/Creatinine Ratio Glucose POC Glucose 146 H 172 H POC Glucose (other) Estimat Average Glucose Hemoglobin A1c Calcium POC Ioniz Calcium Mayur Magnesium Total Bilirubin AST ALT Alkaline Phosphatase Total Creatine Kinase Troponin I High Sens Total Protein Albumin Globulin Albumin/Globulin Ratio Urine Color Urine Appearance Urine pH Ur Specific [place] Urine Protein Urine Glucose (UA) Urine Ketones Urine Blood Urine Nitrite Urine Bilirubin Urine Urobilinogen Ur Leukocyte Esterase Diagnostic Findings Aorta CTA did not demonstrate flow in the right superficial femoral, popliteal or calf vessels. Chronic left foot fracture. Lower extremity duplex revealed normal flow in the femoral, popliteal and calf arteries. ECG Additional Comments: EKG demonstrated mild sinus tachycardia otherwise unremarkable. PG Care Time/CCT Total # of Minutes Spent Total Time Spent with Patient: Total time spent is greater than 50% in coordination of care (as documented) at patient's floor/unit and/or counseling patient: Coding Level of Care Code 16300 INT INP/OBS CARE 3/75MIN Diagnoses Elevated troponin R79.89
[2024-01-04] MEDS: oxyCODONE HCL IR 5 MG TAB (IMMEDIATE RELEASE) PO PRN (15:14)
--- NOTE | 2024-01-04 15:31 | Hospitalist Progress Note ---
Date of Service January 04, 2024 Assessment & Plan (1) Rhabdomyolysis: (2) Elevated troponin: (3) Contusion of leg, multiple sites: (4) Cellulitis of both lower extremities: (5) Uncontrolled type 1 diabetes mellitus with hyperglycemia: (6) BPH loc w urin obs/LUTS: (7) Inclusion body myositis: (8) Regional enteritis (Crohn's disease): (9) Fall: (10) Right leg pain: Plan Rhabdomyolysis Total CK 844 - downtrended Status post 1 L normal saline in the ED PT/OT Elevated troponin Troponin 1640.4 initially and trended - peaked at 2705 Possibly in relation to rhabdo Consult cardiology Check echo Right leg pain Had pain preceding this fall CT scan demonstrates no fracture Tylenol, gabapentin Trial short course PRN oxycodone Likely needs ongoing outpatient w/u and management PT/OT Bilateral lower extremity cellulitis- Left lower extremity worse than right Given ceftriaxone 2 g IV in ED Placed on daptomycin IV and cefepime IV - will monitor and hope to de-escalate Would likely benefit from Unna boots Consult wound care Diabetes mellitus- Glucose 303 on admission, A1c 7.5% Insulin glargine 30u AM (patient reports 30u is home dosing, not 40u) Placed on Accu-Cheks with NovoLog SSI 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 Hold off on stress dosing for now, due to significant hyperglycemia If persistent fatigue, would add stress dosing later Crohn's disease- On Entyvio in the outpatient setting and prednisone Admission and Anticipated Discharge Date Admission Date: January 03, 2024 Subjective Primary concern today is his right posterior leg pain. Also notes he did have some lightheadedness yesterday but denies currently lightheadedness. Denies CP, SOB, nausea. Review of Systems Review of Systems: Per subjective Physical Exam Physical Exam: General: Well-appearing, NAD Cardiovascular: RRR, no M/R/G Pulmonary: CTAB, no W/R/R Extremities: Moving all extremities, LLE>RLE pitting edema with erythema, mild right buttock TTP Integumentary: No suspicious rash or lesion on exposed skin Neurologic: AAOx3, no focal deficits Psychiatric: Appropriate mood/affect Results & Data Results & Data Vital Signs (Past 12 Hours) Vital Signs Temp Pulse Pulse Resp BP Pulse Ox O2 Del Method 01/04/24 15:03 37.1 C 97 H 16 130/76 99 Room Air 01/04/24 11:46 37.0 C 98 H 16 98/60 L 97 Room Air 01/04/24 08:00 Room Air 01/04/24 07:30 37.0 C 101 H 18 112/75 97 Room Air 01/04/24 07:25 100 H 01/04/24 03:39 36.7 C 91 H 18 112/71 99 Room Air Laboratory Results Reviewed labs todaynotable for WBC decreasing from 22 to 12, otherwise unr emarkable, BMP unremarkable with low creatinine at 0.3, glucose improved to 100s from 300s, A1c 7.5%, calcium mildly low at 8.5, creatinine kinase decreased from 844 to 537, troponin peaked at 2705 PG Care Time/CCT Total # of Minutes Spent Total Time Spent with Patient: Total time spent is greater than 50% in coordination of care (as documented) at patient's floor/unit and/or counseling patient: Coding Level of Care Code 49501 SUB INP/OBS CARE 350MIN Diagnoses Rhabdomyolysis T79.6XXA Encounter type: initial encounter Rhabdomyolysis type: traumatic Elevated troponin R79.89 Contusion of leg, multiple sites S80.10XA Encounter type: initial encounter Laterality: unspecified laterality Cellulitis of both lower extremities L03.115; L03.116 Uncontrolled type 1 diabetes mellitus with hyperglycemia E10.65 BPH loc w urin obs/LUTS N40.1 Inclusion body myositis G72.41 Crohn's disease without complication, unspecified gastrointestinal tract location K50.90 Gastrointestinal tract location: unspecified location Digestive disease complication type: without complication Fall W19.XXXA Encounter type: initial encounter Right leg pain M79.604 (1) Rhabdomyolysis Encounter type: initial encounter Rhabdomyolysis type: traumatic Qualified Code(s): T79.6XXA - Traumatic ischemia of muscle, initial encounter (3) Contusion of leg, multiple sites Encounter type: initial encounter Laterality: unspecified laterality Qualified Code(s): S80.10XA - Contusion of unspecified lower leg, initial encounter (8) Regional enteritis (Crohn's disease) Gastrointestinal tract location: unspecified location Digestive disease complication type: without complication Qualified Code(s): K50.90 - Crohn's disease, unspecified, without complications (9) Fall Encounter type: initial encounter Qualified Code(s): W19.XXXA - Unspecified fall, initial encounter
--- NOTE | 2024-01-04 16:25 | XCELERA ---
[id number]
--- NOTE | 2024-01-04 16:54 | Electrocardiogram Report ---
Test Reason : Blood Pressure : / mmHG Vent. Rate : 101 BPM Atrial Rate : 101 BPM P-R Int : 152 ms QRS Dur : 088 ms QT Int : 378 ms P-R-T Axes : 042 -04 068 degrees QTc Int : 490 ms Sinus tachycardia Otherwise normal ECG When compared with ECG of 03-JAN-2024 14:28, No significant change was found Confirmed by Matthias Rea ([id number]) on 01/04/2024 4:53:42 PM Referred By: REFERRED SELF Confirmed By:Agapito Rea
[2024-01-05 06:50] LABS: Basophils # (auto) 0.06 K/uL (0.00-0.20); Basophils % (auto) 0.6 %; Eosinophils # (auto) 0.21 K/uL (0.00-0.50); Hematocrit (blood only) 40.5 % (42.0-52.0); Hemoglobin 13.1 g/dl (14.0-18.0); Immature Granulocytes # (auto) 0.07 K/uL (0.01-0.20); Immature Granulocytes % (auto) 0.7 %; Lymphocytes % (auto) 21.9 %; Mean Corpuscular Hemoglobin 28.3 pg (25.0-34.0); Mean Corpuscular Hgb Conc 32.3 g/dL (32.0-36.0); Mean Corpuscular Volume 87.5 fL (80.0-100.0); Mean Platelet Volume 10.7 fL (9.4-12.4); Monocytes # (auto) 1.33 K/uL (0.11-0.59); Monocytes % (auto) 12.7 %; Neutrophils # (auto) 6.51 K/uL (1.40-6.50); Neutrophils % (auto) 62.1 %; Platelet Count 240 K/uL (130-400); RDW Coefficient of Variation 13.9 % (11.5-14.5); RDW Standard Deviation 44.5 fL (36.4-46.3); Red Blood Count 4.63 M/uL (4.70-6.10); White Blood Count 10.48 K/ul (4.8-10.8)
[2024-01-05 07:06] LABS: Alanine Aminotransferase 39 U/L (7-52); Albumin Globulin Ratio 1.5 (0.9-2); Albumin Level 3.2 gm/dl (3.4-5.0); Alkaline Phosphatase 98 U/L (34-104); Anion Gap 5 (3-11); Aspartate Aminotransferase 41 U/L (13-39); BUN Creatinine Ratio 40.6 (10-20); Bilirubin,Total 0.9 mg/dl (0.2-1.0); Blood Urea Nitrogen 13 mg/dl (6-23); Calcium 8.2 mg/dl (8.6-10.3); Carbon Dioxide 28 mmol/L (21-32); Chloride 103 mmol/L (98-107); Creatine Kinase 360 U/L (30-223); Est GFR (African American) > 150.0 ml/min; Est GFR (Non-African American) 138.6 ml/min; Globulin 2.1 gm/dl (2.5-4.0); Glucose 174 mg/dl (70-99(Fasting)); Magnesium 1.9 mg/dl (1.7-2.4); Sodium 136 mmol/L (136-145); Total Protein 5.3 gm/dl (6.0-8.3)
--- NOTE | 2024-01-05 12:19 | Electrocardiogram Report ---
Test Reason : Blood Pressure : / mmHG Vent. Rate : 088 BPM Atrial Rate : 088 BPM P-R Int : 158 ms QRS Dur : 096 ms QT Int : 402 ms P-R-T Axes : 027 -20 045 degrees QTc Int : 486 ms Normal sinus rhythm with sinus arrhythmia Minimal voltage criteria for LVH, may be normal variant Abnormal ECG When compared with ECG of 04-JAN-2024 06:24, No significant change was found Confirmed by Matthias Rea ([id number] on 01/05/2024 12:19:29 PM Referred By: REFERRED SELF Confirmed By:Agapito Rea
[2024-01-05] MEDS: FUROSEMIDE INJ 20 MG/2 ML VIAL IV ONE (12:30)
[2024-01-05] MEDS: predniSONE 5 MG TAB PO SCH (13:11)
--- NOTE | 2024-01-05 13:36 | Hospitalist Progress Note ---
Date of Service January 05, 2024 Assessment & Plan (1) Rhabdomyolysis: (2) Elevated troponin: (3) Contusion of leg, multiple sites: (4) Cellulitis of both lower extremities: (5) Uncontrolled type 1 diabetes mellitus with hyperglycemia: (6) BPH loc w urin obs/LUTS: (7) Inclusion body myositis: (8) Regional enteritis (Crohn's disease): (9) Fall: (10) Right leg pain: Plan Rhabdomyolysis Total CK 844 - downtrended Status post 1 L normal saline in the ED PT/OT Elevated troponin Troponin 1640.4 initially and trended - peaked at 2705 before downtrending Possibly in relation to rhabdo Consult cardiology - unrelated to ACS TTE 01/03 with normal EF of 60 to 65%, mild concentric LVH, grade 1 diastolic dysfunction, borderline left atrial enlargement Right leg pain Had pain preceding this recent fall CT scan demonstrates no fracture, suspect component of trochanteric bursitis Tylenol, gabapentin Trialed short course PRN oxycodone - reports makes his head feel funny and not super helpful, will discontinue Likely needs ongoing outpatient w/u and management PT/OT Bilateral lower extremity cellulitis- Left lower extremity worse than right Given ceftriaxone 2 g IV in ED Placed on daptomycin IV and cefepime IV with ongoing erythema, will monitor and hope to de-escalate Would likely benefit from Unna boots Consult wound care Trial dose of IV lasix to help improve edema to hopefully help with cellulitis Diabetes mellitus- Glucose 303 on admission, A1c 7.5% Insulin glargine 30u AM (patient reports 30u is home dosing, not 40u) Placed on Accu-Cheks with NovoLog SSI 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 Still having some bilateral leg discomfort mostly in the feet but also in the right proximal posterior lateral hip region. He reports neither wound care nor PT/OT has met with him yet. He is inquiring about his prednisone dosingstates it was not with his normal morning meds, uses 15 mg daily at home. Review of Systems Review of Systems: Per subjective Physical Exam Physical Exam: General: Well-appearing, NAD Cardiovascular: RRR, no M/R/G Pulmonary: CTAB, no W/R/R : Batista in place draining clear yellow urine Extremities: Moving all extremities, LLE>RLE pitting edema with erythema, mild right buttock TTP and TTP over greater trochanteric region. Wounds around toes Integumentary: No suspicious rash or lesion on exposed skin Neurologic: AAOx3, no focal deficits Psychiatric: Appropriate mood/affect Results & Data Results & Data Vital Signs (Past 12 Hours) Vital Signs Temp Pulse Resp BP Pulse Ox O2 Del Method 01/05/24 11:23 37.0 C 91 H 18 108/64 93 Room Air 01/05/24 07:18 37.0 C 93 H 16 116/69 98 Room Air 01/05/24 02:43 36.5 C 83 18 105/69 95 Room Air Laboratory Results Reviewed CBC, CMP, magnesium, CKoverall unremarkable with exception of mild decrease in hemoglobin to 13.1, downtrending CK to 360 Hyperglycemia on pthlr-yf-gbmr glucoses Diagnostic Findings TTE 01/03 with normal EF of 60 to 65%, mild concentric LVH, grade 1 diastolic dysfunction, borderline left atrial enlargement PG Care Time/CCT Total # of Minutes Spent Total Time Spent with Patient: Total time spent is greater than 50% in coordination of care (as documented) at patient's floor/unit and/or counseling patient: Coding Level of Care Code 88397 SUB INP/OBS CARE 3/50MIN Diagnoses Rhabdomyolysis T79.6XXA Encounter type: initial encounter Rhabdomyolysis type: traumatic Elevated troponin R79.89 Contusion of leg, multiple sites S80.10XA Encounter type: initial encounter Laterality: unspecified laterality Cellulitis of both lower extremities L03.115; L03.116 Uncontrolled type 1 diabetes mellitus with hyperglycemia E10.65 BPH loc w urin obs/LUTS N40.1 Inclusion body myositis G72.41 Crohn's disease without complication, unspecified gastrointestinal tract location K50.90 Gastrointestinal tract location: unspecified location Digestive disease complication type: without complication Fall W19.XXXA Encounter type: initial encounter Right leg pain M79.604 (1) Rhabdomyolysis Encounter type: initial encounter Rhabdomyolysis type: traumatic Qualified Code(s): T79.6XXA - Traumatic ischemia of muscle, initial encounter (3) Contusion of leg, multiple sites Encounter type: initial encounter Laterality: unspecified laterality Qualified Code(s): S80.10XA - Contusion of unspecified lower leg, initial encounter (8) Regional enteritis (Crohn's disease) Gastrointestinal tract location: unspecified location Digestive disease complication type: without complication Qualified Code(s): K50.90 - Crohn's disease, unspecified, without complications (9) Fall Encounter type: initial encounter Qualified Code(s): W19.XXXA - Unspecified fall, initial encounter
[2024-01-06 07:25] LABS: Basophils # (auto) 0.03 K/uL (0.00-0.20); Basophils % (auto) 0.3 %; Eosinophils # (auto) 0.27 K/uL (0.00-0.50); Eosinophils % (auto) 2.9 %; Hematocrit (blood only) 42.2 % (42.0-52.0); Hemoglobin 14.1 g/dl (14.0-18.0); Immature Granulocytes # (auto) 0.06 K/uL (0.01-0.20); Immature Granulocytes % (auto) 0.6 %; Lymphocytes # (auto) 2.32 K/uL (1.20-3.40); Lymphocytes % (auto) 25.1 %; Mean Corpuscular Hemoglobin 28.9 pg (25.0-34.0); Mean Corpuscular Hgb Conc 33.4 g/dL (32.0-36.0); Mean Corpuscular Volume 86.5 fL (80.0-100.0); Mean Platelet Volume 10.8 fL (9.4-12.4); Monocytes # (auto) 1.05 K/uL (0.11-0.59); Monocytes % (auto) 11.4 %; Neutrophils # (auto) 5.51 K/uL (1.40-6.50); Neutrophils % (auto) 59.7 %; Platelet Count 259 K/uL (130-400); RDW Coefficient of Variation 13.4 % (11.5-14.5); RDW Standard Deviation 42.4 fL (36.4-46.3); Red Blood Count 4.88 M/uL (4.70-6.10); White Blood Count 9.24 K/ul (4.8-10.8)
[2024-01-06 08:22] LABS: Alanine Aminotransferase 35 U/L (7-52); Albumin Globulin Ratio 1.5 (0.9-2); Albumin Level 3.3 gm/dl (3.4-5.0); Alkaline Phosphatase 94 U/L (34-104); Anion Gap 8 (3-11); Aspartate Aminotransferase 26 U/L (13-39); BUN Creatinine Ratio 54.2 (10-20); Bilirubin,Total 0.7 mg/dl (0.2-1.0); Blood Urea Nitrogen 13 mg/dl (6-23); Calcium 8.3 mg/dl (8.6-10.3); Carbon Dioxide 28 mmol/L (21-32); Chloride 102 mmol/L (98-107); Creatinine Clr Calc Pharmacy 394.1 ml/min; Est GFR (African American) > 150.0 ml/min; Est GFR (Non-African American) > 150.0 ml/min; Globulin 2.2 gm/dl (2.5-4.0); Glucose 161 mg/dl (70-99(Fasting)); Potassium 3.6 mmol/L (3.5-5.1); Sodium 138 mmol/L (136-145); Total Protein 5.5 gm/dl (6.0-8.3)
--- NOTE | 2024-01-06 12:25 | Hospitalist Progress Note ---
Date of Service January 06, 2024 Assessment & Plan (1) Rhabdomyolysis: Plan: CK elevated at 844 on admission now down to 360. Supportive care. Serial labs (2) Elevated troponin: Plan: Present on admission due to demand ischemia most likely. No evidence of acute coronary syndrome. (3) Contusion of leg, multiple sites: Plan: Continue wound care until healed. (4) Cellulitis of both lower extremities: Plan: Currently on daptomycin and cefepime. Eventual switch to oral antibiotic at discharge (5) Uncontrolled type 1 diabetes mellitus with hyperglycemia: Plan: ADA diet. Sliding scale coverage as needed. Continue current medical management (6) BPH loc w urin obs/LUTS: Plan: Batista catheter was placed on admission. Will discontinue Batista catheter today, January 05, for a voiding trial (7) Inclusion body myositis: Plan: Prednisone dependent. Supportive care (8) Regional enteritis (Crohn's disease): Plan: Prednisone dependent, supportive care (9) Fall: Plan: Mechanical due to generalized weakness and chronic ambulatory dysfunction Plan Hopeful discharge to home tomorrow, January 06. He refuses to consider rehab placement. Admission and Anticipated Discharge Date Admission Date: January 03, 2024 Subjective Alert and oriented. No distress. He feels as if he is close to his baseline. He is power wheelchair dependent. Two-person assist to get him from bed to wheelchair. He has chronic edema in both lower extremities but states the edema is at his baseline. CK has improved from 844 down to 360. Physical therapy has recommended rehab stay but he refuses and wants to go home. Fortunately, the arterial Doppler evaluation of both legs is negative for any critical stenosis. Batista catheter was placed on admission and will be removed for a trial of voiding. Cardiac echo reveals no regional wall motion abnormalities. Troponin was elevated on admission but no evidence of acute coronary syndrome. He is steroid-dependent due to his history of myositis. Review of Systems 2 Review of Systems: Constitutional-no fever or chills ENT-no blurred vision, no double vision, no epistaxis, no sore throat Respiratory-no cough, no wheezing, no shortness of breath Cardiac-no palpitations, no chest pain, no syncope GI-no nausea, vomiting, diarrhea, melena, hematochezia -no urinary retention, no urinary incontinence, no dysuria, no hematuria Musculoskeletal-no joint pain, no muscle tenderness. Charcot changes in both feet Skin-extensive erythema bilateral lower extremities below the knees which is chronic. Chronic 3+ edema in both lower extremities below the knees Neuro-bilateral lower extremity weakness. Psychno depression, no anxiety Physical Exam 2 Physical Exam: General-alert and oriented x3, no fever, no chills HEENT-head atraumatic and normocephalic, pupils equal and reactive to light, extraocular muscles intact Neck-no lymphadenopathy or thyromegaly, trachea midline Chest-clear to auscultation. No rales, wheezing or rhonchi Cardiac-regular rate and rhythm, normal S1 and S2 Abdomen-normal bowel sounds, no hepatosplenomegaly Extremities-chronic edema and erythema bilateral lower extremities below the knees. Charcot foot changes bilaterally Neuro-cranial nerves II through XII intact, chronic generalized weakness. Chronic generalized weakness Psych-normal affect, normal mood Results & Data Results & Data Vital Signs (Past 12 Hours) Vital Signs Temp Pulse Pulse Resp BP Pulse Ox O2 Del Method 01/06/24 11:20 36.7 C 91 H 18 154/91 H 98 Room Air 01/06/24 09:34 86 01/06/24 07:23 36.5 C 77 18 132/77 97 Room Air 01/06/24 03:07 36.4 C L 82 18 153/82 H 92 Room Air Laboratory Results 01/06/24 06:07 01/06/24 06:07 Present on admission. CK elevated at 844 on admission now down to 360. Supportive care PG Care Time/CCT Total # of Minutes Spent Total Time Spent with Patient: Total time spent is greater than 50% in coordination of care (as documented) at patient's floor/unit and/or counseling patient: Coding Level of Care Code 93704 SUB INP/OBS CARE 3/50MIN Diagnoses Rhabdomyolysis T79.6XXA Encounter type: initial encounter Rhabdomyolysis type: traumatic Elevated troponin R79.89 Contusion of leg, multiple sites S80.10XA Encounter type: initial encounter Laterality: unspecified laterality Cellulitis of both lower extremities L03.115; L03.116 Uncontrolled type 1 diabetes mellitus with hyperglycemia E10.65 BPH loc w urin obs/LUTS N40.1 Inclusion body myositis G72.41 Crohn's disease without complication, unspecified gastrointestinal tract location K50.90 Gastrointestinal tract location: unspecified location Digestive disease complication type: without complication Fall W19.XXXA Encounter type: initial encounter (1) Rhabdomyolysis Encounter type: initial encounter Rhabdomyolysis type: traumatic Qualified Code(s): T79.6XXA - Traumatic ischemia of muscle, initial encounter (3) Contusion of leg, multiple sites Encounter type: initial encounter Laterality: unspecified laterality Qualified Code(s): S80.10XA - Contusion of unspecified lower leg, initial encounter (8) Regional enteritis (Crohn's disease) Gastrointestinal tract location: unspecified location Digestive disease complication type: without complication Qualified Code(s): K50.90 - Crohn's disease, unspecified, without complications (9) Fall Encounter type: initial encounter Qualified Code(s): W19.XXXA - Unspecified fall, initial encounter
--- NOTE | 2024-01-07 10:53 | Discharge Summary ---
Date of Service January 07, 2024 Admission HPI Per Admitting Provider The patient is a 63-year-old male with a past medical history including morbid obesity, acute blood loss anemia, proximal humeral fracture, diabetes mellitus type 1, nonproliferative diabetic retinopathy, BPH with LUTS, 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 The patient was transferring from his high seat commode, back to his wheelchair, when he slipped and fell, and became lodged between the toilet, the wall heater in his wheelchair. He was reportedly there for about 5 hours. He reports that he had visited his physician yesterday, and had gotten an antibiotic prescription for his lower extremities, but not been able to get it filled yet. He denies any head trauma. Principal Diagnosis Mechanical fall with rhabdomyolysis, acute urinary retention, bilateral lower extremity cellulitis, right lower extremity pain without fracture, elevated troponin without acute coronary syndrome Discharge Exam General-alert and oriented x3, no fever, no chills HEENT-head atraumatic and normocephalic, pupils equal and reactive to light, extraocular muscles intact Neck-no lymphadenopathy or thyromegaly, trachea midline Chest-clear to auscultation. No rales, wheezing or rhonchi Cardiac-regular rate and rhythm, normal S1 and S2 Abdomen-normal bowel sounds, no hepatosplenomegaly Extremities-chronic edema and erythema bilateral lower extremities below the knees. Charcot foot changes bilaterally Neuro-cranial nerves II through XII intact, chronic generalized weakness. Chronic generalized weakness Psych-normal affect, normal mood Discharge Data Allergies Allergy/AdvReac Type Severity Reaction Status Date / Time mercaptopurine AdvReac Severe JAUNDICE Verified 01/02/24 17:40 Consultations 01/03/24 19:21 ED Decision to Admit Stat 01/04/24 08:31 Consult Cardiology Routine Ordered Studies 01/03/24 14:45 CT head/brain wo con Stat CTA abd aorta runof w con [CT ang AA runof w inc wo ifdon] Stat 01/03/24 17:39 US arterial duplex LE RT Stat Hospital Course (1) Rhabdomyolysis: CK mildly elevated on admission and has down trended daily. Supportive care. Serial labs (2) Elevated troponin: Present on admission due to demand ischemia most likely. No evidence of acute coronary syndrome. (3) Contusion of leg, multiple sites: Continue wound care until healed. (4) Cellulitis of both lower extremities: Treated while hospitalized with daptomycin and cefepime. Will discharge on oral Keflex. (5) Uncontrolled type 1 diabetes mellitus with hyperglycemia: ADA diet. Sliding scale coverage as needed. Continue current medical management (6) BPH loc w urin obs/LUTS: Batista catheter was placed on admission due to urinary retention. The Batista catheter was removed yesterday, January 05. He is now voiding without difficulty. (7) Inclusion body myositis: Stable. Prednisone dependent. Supportive care (8) Regional enteritis (Crohn's disease): Stable. Prednisone dependent, supportive care (9) Fall: Mechanical due to generalized weakness and chronic ambulatory dysfunction Plan Home today, January 06 with home health services. He was given a prescription for a wheeled walker. Total Time Total Time Spent Total Time Spent (In Minutes): 45 minutes Discharge Plan Discharge Items Patient Disposition: Home - Home Health Services Reason For Visit: LE CELLULITIS, RHABDO, S/P FALL Discharge Diagnosis: Mechanical fall at home, mild rhabdomyolysis, right lower extremity pain without fracture, bilateral lower extremity cellulitis, acute urinary retention, elevated troponin without acute coronary syndrome. Activity: Resume your previous activity Non-emergency contact: Primary Care Provider Call non-emergency contact if: your symptoms worsen Follow-up/Referrals: Micheal Hathaway III, CRNP [Primary Care Provider] - Diet: Carb Consistent or DM2 and Heart Healthy Addtl Attending Provider Instructions: Continue cephalexin antibiotic for 1 more week. All other medications remain the same Pending Studies at Discharge: No Stand-Alone Forms: [facility] C[facility] Medications and DC Order Prescriptions: New cephalexin 500 mg capsule 500 mg PO QID 7 Days Qty: 28 0RF Continued trazodone 100 mg tablet 100 mg PO HS Qty: 90 3RF duloxetine 60 mg capsule,delayed release(DR/EC) 60 mg PO QPM Qty: 90 3RF zoledronic kgor-nhlswjsg-vgzvu [Reclast] 5 mg/100 mL piggyback 5 ea IV YEARLY Qty: 100 0RF Rx Instructions: Schedule 06/12/23 @ 1230 gabapentin 300 mg capsule 300 mg PO BID Qty: 180 3RF Rx Instructions: last filled November 17 per pharmacy ([facility] [place] FreeStyle [place] 3 Sensor Device See Rx Instructions .Route Qty: 1 12RF Rx Instructions: use to test blood glucose 3 times daily and as needed vedolizumab 300 mg recon soln 300 mg IV Q8WK Qty: 1 8RF lisinopril 5 mg tablet See Rx Instructions .ROUTE .COMPLEX Qty: 90 1RF Dose Instruction: TAKE 1 TABLET BY MOUTH EVERY DAY IN THE MORNING Rx Instructions: TAKE 1 TABLET BY MOUTH EVERY DAY IN THE MORNING multivitamin [Daily Multi-Vitamin] tablet 1 tab PO QAM (DME) OneTouch Ultra Blue Test Strip Strip See Rx Instructions .ROUTE .MEDSUPPLY Qty: 10 Rx Instructions: Test blood sugar once daily PRN prednisone 10 mg tablet 15 mg PO QAM acetaminophen [Tylenol Extra Strength] 500 mg tablet 1,000 mg PO BID PRN (Reason: Pain) Rx Instructions: OTC ([facility] [place]) pen needle, diabetic [BD Ultra-Fine Marsha Pen Needle] 32 gauge x 5/32" needle See Rx Instructions .Route Qty: 400 3RF Rx Instructions: Inject insulin four times daily diphenoxylate-atropine 2.5-0.025 mg tablet 1 tab PO QID PRN (Reason: diarrhea) Qty: 360 0RF zolpidem 12.5 mg tablet,ext release multiphase 12.5 mg PO HS Qty: 90 0RF Fiasp FlexTouch U-100 Insulin 100 unit/mL (3 mL) insulin pen See Rx Instructions subcut DAILY Rx Instructions: *per pharmacy, this hasn't been filled since August 22 2023 (38u am, 34u lunch, 38u at dinner) 01/03/24* Patient reports taking anywhere between 25 units-30 units per meal - states he doesn't follow a specific sliding scale cyclobenzaprine 10 mg tablet 10 mg PO HS PRN (Reason: muscle spasm) Qty: 30 0RF ezetimibe 10 mg tablet 10 mg PO QAM Rx Instructions: TAKE 1 TABLET DAILY insulin glargine [Basaglar KwikPen U-100 Insulin] 100 unit/mL (3 mL) insulin pen 40 unit subcut QAM Patient Comments: patient reports taking anywhere from 25 units - 40 units daily - states he changes depending on his BSG Rx Instructions: per pharmacy they have 65 units subq qam. 01/03/24 prednisone 5 mg tablet 5 mg PO UD PRN (Reason: weakness) Rx Instructions: Take 5mg w/ 10mg tablet by mouth once every morning. May take a second 5 mg dose as needed for increased weakness Discontinued cephalexin 500 mg capsule 500 mg PO QID 14 Days Qty: 56 0RF Discharge Orders: Discharge Order (Routine); Ordered 01/07/24 Ordered By: Rivera Kyle/Other Patient Handouts: High Blood Sugar (Hyperglycemia), Managing Type 2 Diabetes Admission Data Admit Date/Time: 01/03/24 20:47 Attending Provider: Rivera Ramos Admit Provider: Shukri Herrera Primary Care Provider: Micheal Hathaway III Other Providers: Shukri Herrera; Matthias Rea Coding Level of Care Code 77731 INP/OBS DISCH >30 MIN Diagnoses Rhabdomyolysis T79.6XXA Encounter type: initial encounter Rhabdomyolysis type: traumatic Elevated troponin R79.89 Contusion of leg, multiple sites S80.10XA Encounter type: initial encounter Laterality: unspecified laterality Cellulitis of both lower extremities L03.115; L03.116 Uncontrolled type 1 diabetes mellitus with hyperglycemia E10.65 BPH loc w urin obs/LUTS N40.1 Inclusion body myositis G72.41 Crohn's disease without complication, unspecified gastrointestinal tract location K50.90 Gastrointestinal tract location: unspecified location Digestive disease complication type: without complication Fall W19.XXXA Encounter type: initial encounter
--- NOTE | 2024-01-08 05:35 | Coding Query ---
CODING QUERY To promote full compliance with coding requirements relating to patient care, provider participation is requested in all cases of senior statistical programmer uncertainty. Please assist us with the question(s) below: Coding Question(s): Pt adm with rhabdomyolysis, 5 hours down from a fall at home. Seeking to determine the etiology of the rhabdomyolysis. Please check below. Thank you . Sebastian Seymour [facility] Physician's Response(s): ___x____ Rhabdomyolysis was due to Fall/ trauma Rhabdomyolysis was nontraumatic Principal Diagnosis: "that condition established after study, to be chiefly responsible for occasioning the admission of the patient to the hospital for care." Co-Existing Principal Diagnosis: "when two or more diagnoses equally meet the criteria for principal diagnosis as determined by the circumstances of admission, diagnostic work up, and/or therapy provided, and the Alphabetic Index, Tabular List, or another coding guideline does not provide sequencing direction, any one of the diagnoses may be sequenced first." "When the physician has documented what appears to be a current diagnosis in the body of the record, but has not included the diagnosis in the final diagnostic statement, the physician should be asked whether the diagnosis should be added." (Source [facility]oding [facility] 2 QTR90. p3-4) RADHA
== END 2024-01-07 14:45 | disposition home or self-care (01) | DRG 565 ==
LOC: ED 14:17 → 2S 20:47 → SUATTDRO 20:47 → 2S 22:09